=== PATIENT | female | born 1940 | race Caucasian/White ===

== ENCOUNTER → 2017-04-25 | Outpatient (CLI) | payer OTHER ==
[~2017-04-25] MED LIST: ASPI81TA28 PO; CHOL4POW2 PO; CHRO1CAP4 PO; CINN1CAP2 PO; COEN150C PO; CYAN500T PO; DYZ PO; GABA-113 PO; LEVO1TAB PO; METF1TAB53 PO; METO50TA16 PO; OMEP40CA PO; PRED1SUS3 OPR
--- NOTE | 2017-04-25 17:14 | MAMMOGRAPHY REPORT ---
UNILATERAL LEFT DIGITAL DIAGNOSTIC MAMMOGRAM TOMOSYNTHESIS WITH CAD AND TARGETED LEFT ULTRASOUND: 04/25 CLINICAL HISTORY: The patient reports tenderness in her left lateral breast for approximately one mon th. The area was previously itchy although that has now resolved and only the nipple is intermittent ly itchy. The patient denies any nipple discharge or palpable lumps. TECHNIQUE: Breast tomosynthesis in addition to standard 2D mammography was performed. Current study was also evaluated with a Computer Aided Detection (CAD) system. Left CC and MLO 2-D and tomosynthes is images were obtained. COMPARISON: Comparison is made to exams dated: 10/05/2016 mammogram, 10/04/2015 mammogram, 4 mammogram, 09/30/2013 mammogram, and 09/10/2012 mammogram. BREAST COMPOSITION: There are scattered areas of fibroglandular density in the left breast. FINDINGS: There are no suspicious masses, calcifications, or areas of architectural distortion noted in the left breast. There has been no significant interval change compared to prior exams. Scatter ed benign-appearing calcifications are stable. A focally dilated duct is seen within the left lower and slightly inner breast which does not appear significantly changed compared to prior exams. Targeted ultrasound was performed of the area of pain pointed out by the patient, involving the left 3:00 breast extending from the far lateral breast towards the nipple. Targeted ultrasound was also p erformed of the subareolar region. No suspicious masses are seen in the region of the patient's pain . Incidentally noted is an oval anechoic benign cyst versus focal duct ectasia measuring 4 x 3 mm in the left breast at 3:00, 3 cm from the nipple. In the left breast at 6:00, 2 cm from the nipple, th ere is a hypoechoic solid intraductal mass which measures 5 x 7 x 6 mm. No internal vascularity is e vident. Given that the mass is intraductal, it may represent a papilloma and ultrasound-guided core needle biopsy is recommended for further evaluation. This may correspond with the focally dilated du ct seen mammographically. IMPRESSION: ACR BI-RADS CATEGORY 4: SUSPICIOUS, TARGETED ULTRASOUND ACR BI-RADS CATEGORY 4: SUSPICIO US 1. No suspicious mammographic or sonographic abnormalities to explain left lateral breast pain and l eft nipple itchiness. Recommend clinical follow-up. 2. Incidentally noted intraductal 7 mm mass in the left breast at 6:00. The mass is indeterminate a nd ultrasound-guided core needle biopsy is recommended for further evaluation. This may represent a papilloma. A phone call was made to the physician's office to confirm faxed results were received. The patient has been verbally notified of the results. She tentatively scheduled the biopsy before leaving the d epartment. I will leave it up to the patient's physician if she can safely discontinue aspirin for 5 -7 days prior to the procedure. Approximately 10% of breast cancers are not detected with mammography. A negative mammographic report should not delay biopsy if a clinically suggestive mass is present. Sarita Houston M.D. ah/:04/25/2017 14:44:07 Director Check: Kailyn TURNER)(Natasha), [facility] letter sent: Abnormal 4/5 BI-RADS Code: ACR BI-RADS Category 4: Suspicious Ultrasound BI-RADS: ACR BI-RADS Category 4: Suspici ous
== END ==
LOC: C.MAMM 12:53
PROVIDERS: ATTEND Family Medicine
DX: N64.4 Mastodynia (principal)

== ENCOUNTER → 2017-05-02 | Outpatient (CLI) | payer OTHER ==
--- NOTE | 2017-05-02 10:29 | Discharge Instructions ---
Discharge Instructions Procedure Procedure Date: May 02, 2017. Reason for visit: Left Mass. Discharge Discharge Date: May 02, 2017. Discharge Diagnosis: status post breast biopsy Instructions Activity Recommendations: Additional Limitations (see below) Return to School/Work: no limitations Recommended Home Diet: No Limitations Provider Instructions: ACTIVITY RECOMMENDATIONS: * No lifting, pushing, pulling or exercising the affected side for three days. RETURN TO SCHOOL/WORK: * You may return to work/school after the procedure, but do not perform any strenuous activities for 24 to 48 hours. MEDICATIONS: * Tylenol (two 325 mg) every four to six hours if needed for mild pain (if not allergic to Tylenol). DIET: * Resume previous diet. SPECIAL CARE INSTRUCTIONS: * Keep biopsy site dry for 24 hours. May shower after 24 hours, but do not soak (bathe) incision. * May remove Tegaderm (plastic patch) tomorrow AFTER showering. * Leave the steri-strips on for one week. Allow the steri-strips to fall off by themselves. If not off after one week, you may remove them. You may place a Bandaid crosswise over the strips, if desired. * Apply ice 10 minutes on and 10 minutes off as needed. * Wear a bra at bedtime to sleep more comfortably for 2-3 days. * Your referring physician should have the results after approximately 5 to 7 business days. * Call for unusual bleeding, fever, drainage, etc or if you have any questions call during normal business hours or after hours call Dr Houston, . FOLLOW UP VISIT: Follow-up with Referring Physician as scheduled. Allergies Coded Allergies: Dimenhydrinate (Verified Allergy, Unknown, RASH, 06/07/16) Lisinopril (Verified Allergy, Unknown, CHRONIC COUGH, 06/07/16) Mepivacaine (Verified Allergy, Unknown, W/ EPINEPHRINE - LIGHTHEADED, FACIAL DROOPING, 06/07/16) Kiki Amin Recommendations: Call your doctor if: * Temperature above 101 degrees * Pain not relieved by pain medicine ordered * There is increased drainage or redness from any incision * You have any unanswered questions or concerns. Your Doctors Instructions noted above were prepared by provider Sarita Houston. Patient Signature Section: Patient Instructions Signature Page Alka Lawson Patient (or Guardian) Signature/Date: I have read and understand the instructions given to me by my caregivers. Caregiver/RN/Doctor Signature/Date: The above-named patient and/or guardian has received patient instructions on this date. + Original Patient Signature Page (only) stays with chart. Please make copy for patient.
--- NOTE | 2017-05-02 13:27 | MAMMOGRAPHY REPORT ---
THIS REPORT HAS BEEN AMENDED. ULTRASOUND GUIDED BIOPSY LEFT BREAST: 05/02/2017 CLINICAL HISTORY: Left 6:00 breast mass. PATIENT CONSENT: The procedure, risks and benefits were discussed with the patient and informed writt en consent was obtained. A timeout was performed immediately prior to the procedure. PROCEDURE DESCRIPTION: With ultrasound guidance, aseptic technique, and lidocaine as the local anesth etic (1% lidocaine without epinephrine as the patient reported that she had a racing heart with prior epinephrine injection), the mass of concern in the left 6:00 breast was sampled 4 times with a 14-ga uge Achieve biopsy needle. Immediately thereafter, with ultrasound guidance, aseptic technique, and lidocaine as the local anesthetic, a metallic localizer clip was placed centrally in the mass. Direc t pressure was applied to the site immediately post procedure and hemostasis was achieved. Postproce dure unilateral mammograms were performed to confirm placement of the clip in the expected location o f the breast mass. The patient tolerated the procedure without complication. She was given wound ca re instructions. The specimens were sent to pathology for analysis. COMPARISON: Comparison is made to exams dated: 04/25/2017 ultrasound, 04/25/2017 mammogram - [facility], 10/05/2016 mammogram, 10/04/2015 mammogram, 10/02/2014 mammogram, and 09/30/2013 m ammogram. IMPRESSION: ULTRASOUND GUIDED BIOPSY Ultrasound-guided core needle biopsy of the left 6:00 breast mass, with clip placement. The patient will receive pathology results from her referring provider. Sarita Houston M.D. ah/:05/02/2017 10:31:33 Attending Technologist: Catherine WILDER(Benjamin)(M), [facility] Greens Or Grounds Superintendent: Sarita Houston MD, [facility] AMENDMENT: 05/12/2017 Sarita Houston M.D. The pathology from ultrasound guided biopsy of a left 6:00 breast mass was reviewed on 05/12/2017. 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 The pathology is concordant with the imaging findings. Recommend surgical consultation.
--- NOTE | 2017-05-02 13:27 | MAMMOGRAPHY REPORT ---
UNILATERAL LEFT DIGITAL DIAGNOSTIC MAMMOGRAM TOMOSYNTHESIS: 05/02/2017 CLINICAL HISTORY: Status post ultrasound-guided biopsy of the left 6:00 breast mass. TECHNIQUE: Breast tomosynthesis in addition to standard 2D mammography was performed. Postprocedura l left CC and ML tomosynthesis images including C views were obtained. COMPARISON: Comparison is made to exams dated: 04/25/2017 ultrasound, 04/25/2017 mammogram - [facility], 10/05/2016 mammogram, 10/04/2015 mammogram, 10/02/2014 mammogram, and 09/30/2013 m ammogram. BREAST COMPOSITION: There are scattered areas of fibroglandular density in the left breast. FINDINGS: A new biopsy marker clip is seen at the site of the biopsied mass in the left 6:00 breast. No significant postbiopsy hematoma is seen. IMPRESSION: POST PROCEDURE IMAGING FOR MARKER PLACEMENT New biopsy marker clip status post ultrasound guided biopsy of the left 6:00 breast mass. Pathology results are pending. Approximately 10% of breast cancers are not detected with mammography. A negative mammographic report should not delay biopsy if a clinically suggestive mass is present. Sarita Houston M.D. ah/:05/02/2017 10:39:11 Wink Cutter Operator: Catherine WILDER(R)(M), [facility] BI-RADS Code: Post Procedure Imaging For Marker Placement
== END | disposition home or self-care (01) ==
LOC: C.MAMM 10:00
PROVIDERS: ATTEND Family Medicine
DX: N63 Unspecified lump in breast (principal)

== ENCOUNTER 2024-08-21 08:53 | Observation (INO) ==
--- NOTE | 2024-08-21 09:38 | History & Physical Report ---
Date of Service August 21, 2024 Assessment & Plan (1) Complete heart block: (2) Paroxysmal atrial fibrillation: Plan 1. Complete heart block: She has demonstrated additional episodes of complete heart block on her loop recorder. Patient presents today for implantation of dual-chamber permanent pacemaker 2. Atrial fibrillation: Paroxysmal. No overt symptoms. Will plan dual-chamber pacemaker implantation removal patient activated loop recorder. History of Present Illness Chief Complaint: syncope Primary Care Provider: Jag Kovacs MD Patient with a history of syncope, heart block and atrial fibrillation who had previously undergone implant of a loop recorder. Recent transmissions have demonstrated recurrent heart block Allergies Allergy/AdvReac Type Severity Reaction Status Date / Time dimenhydrinate Allergy Unknown RASH Verified 08/21/24 09:29 epinephrine Allergy Unknown sagging Verified 08/21/24 09:29 face lisinopril Allergy Unknown CHRONIC Verified 08/21/24 09:29 COUGH mepivacaine Allergy Unknown W/ Verified 08/21/24 09:29 EPINEPHRINE - LIGHTHEADED, FACIAL DROOPING Home Medications Medication Instructions Recorded Confirmed Type levothyroxine 125 mcg tablet 125 mcg PO DAILY 09/05/19 08/21/24 History (Synthroid) omeprazole 40 mg capsule,delayed 40 mg PO QPM 12/01/19 08/21/24 History release mecobalamin (vitamin B12) 1 ea PO DAILY 08/23/21 08/21/24 History glipizide 2.5 mg tablet, extended 10 mg PO DAILY 09/02/21 08/21/24 History release 24 hr hydrochlorothiazide 12.5 mg tablet 12.5 mg PO DAILY 09/02/21 08/21/24 History allopurinol 100 mg tablet 200 mg PO BID 03/13/23 08/21/24 History metformin 1,000 mg tablet 1,000 mg PO BID 03/13/23 08/21/24 History warfarin 5 mg tablet 5 mg PO DAILY 03/13/23 08/21/24 History metoprolol tartrate 50 mg tablet 25 mg (1/2 x 50 mg) PO BID #90 tabs 11/14/23 08/21/24 Rx Past Med/Surg History Problem List (Updated 08/10/23 @ 09:58 by Brian Loredo MD) Palpitations Complete heart block Chest pain CKD (chronic kidney disease) Hypothyroidism S/P dilatation of esophageal stricture Esophageal stricture Type 2 diabetes mellitus Dyslipidemia Hypertension Nonsustained ventricular tachycardia Paroxysmal atrial fibrillation Acute gastric ulcer (Acute 10/02/11) Postherpetic neuralgia (Acute 10/02/11) Medical History CKD (chronic kidney disease) Dyslipidemia Esophageal stricture Hypertension Hypothyroidism Nonsustained ventricular tachycardia Paroxysmal atrial fibrillation Stroke Type 2 diabetes mellitus Social History Smoking Status: Never smoker Hx Alcohol Use: No Hx Substance Use: No Beliefs That Will Affect Care: None Current Living Situation: Spouse Physical Exam Physical Exam: Alert. Oriented. Answers all questions appropriately Normal respiratory effort Regular rhythm with occasional ectopy No significant peripheral edema No abdominal distention Results & Data Results & Data Vital Signs (Past 12 Hours) Vital Signs Pulse Resp BP Pulse Ox O2 Del Method 08/21/24 09:13 68 15 155/86 H 98 Room Air
--- NOTE | 2024-08-21 09:45 | Pre Anesthesia Assessment ---
Date of Service August 21, 2024 Pre Sedation Assessment Vital Signs Pulse Resp BP Pulse Ox O2 Del Method 08/21/24 09:13 68 15 155/86 H 98 Room Air Cardiovascular + regular rate Respiratory + respiratory effort normal Pre-Sedation Airway Assessment Smoking Status: Never smoker Hx Sleep Apnea: No Hx Difficult Intubation: No Short, Thick Neck: No Thyromental Distance: > or= 3.5 Finger Breadths Oral Cavity: + WNL Mallampati Class: II ASA: ASA3 NPO Status Date of Last Intake of Fluids: 08/20/24 Date of Last Intake of Solid Food: 08/20/24 Procedure Planning Contraindications for Sedation: none Current Medications Reviewed: Yes Notes The planned sedation has been discussed with the patient. Informed Consent was obtained. I have identified the patient, determined the appropriateness of jagruti tion and have assessed the patient immediately prior to the procedure. All medicine(s) and interventions are by my order.
[2024-08-21 10:55] LABS: INR 1.9 (0.9-1.1); Prothrombin Time 19.3 Seconds (9.0-12.0)
[2024-08-21 10:59] LABS: BUN Creatinine Ratio 19.6 (10-20); Calcium 8.9 mg/dl (8.6-10.3); Creatinine Clr Calc Pharmacy 42.6 ml/min; Potassium 3.8 mmol/L (3.5-5.1)
[2024-08-21] MEDS: BUPIVACAINE 0.25% PF 30 ML VIAL ONE (11:39)
[2024-08-21] MEDS: LIDOCAINE 1% LOCAL 20 ML VIAL ONE (11:41)
[2024-08-21] MEDS: ceFAZolin 330 MG/ML 1 GM VIAL ONE (11:41)
[2024-08-21] MEDS: WATER, STERILE FOR INJ 10 ML VIAL ONE (12:10)
[2024-08-21] MEDS: VANCOMYCIN HCL 1000MG/20ML VIAL ONE (12:10)
[2024-08-21] MEDS: MIDAZOLAM HCL 5 MG/ML 1 ML VIAL ONE (12:10)
[2024-08-21] MEDS: fentaNYL citrate PF 100 MCG/2 ML VIAL ONE (12:11)
[2024-08-21] MEDS ORDERED: oxyCODONE HCL IR 5 MG TAB (IMMEDIATE RELEASE) PO PRN (12:16)
--- NOTE | 2024-08-21 12:16 | Electrophysiology Report ---
Date of Service August 21, 2024 Electrophysiology Procedure Electrophysiology Procedure Report Procedure performed: Implantation of dual-chamber permanent pacemaker and removal of previously implanted loop recorder Staff mold maker plaster: Brian Loredo MD Indication: The patient is an 84-year-old woman who previously undergone implantation of loop recorder due to episodes of syncope and heart block. She was noted to have recurrent episodes of complete heart block on monitoring and advised undergo implantation of dual-chamber permanent pacemaker for symptomatic nonreversible AV node dysfunction. A dual-chamber device was selected as we wished to maintain AV synchrony. Procedure in detail: The patient was informed of the risks benefits and alternatives to the intended procedure and she wished to proceed. She was taken to the electrophysiology suite in a fasting state. A preoperative antibiotic had been administered. The patient was monitored electrocardiographically throughout today's procedure and conscious sedation was administered per protocol. The left upper pectoral area was prepped and draped in usual sterile fashion. This area was anesthetized using subcutaneous administration of a xylocaine solution. An incision was made at this site and carried down to the prepectoralis fascia using sharp dissection. Electrocautery was also employed for dissection as well as for hemostasis. A device pocket was fashioned tissues above the pectoralis muscle. Subsequent to this maneuver the left axillary vein was accessed using modified Seldinger technique. A sheath was placed over guidewire and used to facilitate passage of a guiding catheter for mapping of the interventricular septum. Once an appropriate location was identified a pacing lead was advanced into the interventricular septum until the appropriate electrophysiologic characteristics were obtained. At this point the guiding catheter was removed. The proximal portion of the lead was then sutured the prepectoralis fascia using nonabsorbable suture. A sheath was placed over the remaining guidewire and used to facilitate passage of a pacing lead to the right atrium under fluoroscopic guidance. Adequate sensing and threshold parameters were obtained prior to active fixation of this lead to the endocardial surface. The proximal portion of the leads were then sutured the prepectoral fascia using nonabsorbable suture. The device pocket was irrigated with antibiotic solution. The leads were then attached to the device. The device and leads were then placed in the pocket and pocket was closed in 3 layers of absorbable suture. Steri-Strips and sterile dressing were applied. The device was tested noninvasively prior to conclusion the procedure. Attention was then turned to the previously implanted loop recorder. The area over the loop recorder was prepped and draped in usual sterile fashion. This area was anesthetized using subcutaneous ministration of lidocaine and Marcaine solution. A small incision was made at the site and carried down the previously implanted device. The device was grasped and removed. The resulting small incision was closed with a single 4-0 Vicryl suture and a Steri-Strip. This was covered with a sterile dressing. The patient tolerated procedure well there no immediate complications. Equipment used: New pulse generator: Community Outreach Manager [employer]. Model number: [id number] serial number [id number] Right atrial lead: Community Outreach Manager [employer]. Model number: 5076 serial number [id number] Right ventricular lead: Community Outreach Manager [employer]. Model number: 3830 serial number [id number] Explanted pulse generator: Community Outreach Manager [employer]. Model number LNQ22 serial number [id number] Measured data: Right atrial lead: P waves measured 2.8 mV. Pacing threshold was 1 V at 0.4 ms with a pacing impedance of 722 ohms Right ventricular lead: R waves measured 20 mV. Pacing threshold was 1 V at 0.4 ms with a pacing impedance of 760 ohms Impression: Successful implantation of dual-chamber permanent pacemaker with septal pacing lead Successful explantation of patient activated loop recorder MN[employer] Electrophysiology codes Pacing Procedure 1: Pacin Insert/Replace Pacer A & V Implantable Monitors Procedure 1: Implantable Monitors: [id number] Loop Recorder Explant PG Moderate Sedation Codes Moderate Sedation Codes Procedure 1: Sedation/Anesthesia: 15247 Mod Sedation by the same physician;Init15 Min Child Age 5 & Up Procedure 2: Sedation/Anesthesia: 35256 Mod Sedation by the same physician; Ea [id number] Minutes
--- NOTE | 2024-08-21 12:16 | Post Anesthesia Assessment ---
Date of Service August 21, 2024 Post Sedation Assessment Vital Signs Pulse Resp BP Pulse Ox O2 Del Method 08/21/24 09:13 68 15 155/86 H 98 Room Air Recovery Score Activity: Moves 4 extremities Respiration: Deep Breath/Cough Circulation: +/-20% PreAnes Value Consciousness: Arouseable (by name) Oxygen Saturation: O2 needed for >90% Discharge Sedation Level of Care: Fast Track Phase II Post Sedation Plan On clinical assessment, the patient appears to have tolerated the sedation without complications. Patient is recovering as anticipated. Patient will continue to be monitored by nursing and may be discharged when sedation discharge criteria are met per below protocol. Upon Completions of procedure up to 15 minutes continue every 5 minute vital signs and the P.A.R. score; then discharge to a Phase I or Fast Track to Phase II per the following guidelines: * Discharge Patient to appropriate Phase II area if PAR is 8 or greater or return to pre- procedure baseline. The post - procedure orders will be as directed. * If PAR score is less than 8 or not return to pre-procedure baseline then patient will follow Phase I monitoring till PAR is reached for Phase II. The Phase I may be done in procedure room or may call to secure a Phase I area. * If naloxone or flumazenil are used for reversal, hold in Phase I for continued monitoring from when last reversal dose was given for a minimum of 60 minutes or longer pending the nurse and/or physician discretion of patient condition before discharge to Phase II. Please call the Sedation Physician to re-evaluate and complete post-note for discharge to Phase II area. Do NOT discharge from procedure sedation or Phase 1 until post- sedation evaluation note is complete by procedure /sedation MD Sedation Discharge Instructions to be given to the patient at discharge to home.
--- OUTSIDE RECORDS SUMMARY | 2024-08-21 14:03 | External Medical Summary | Summary of Care ---
Author Name Unknown Organization [facility] Address [address] [place] [address] Phone [phone] Care Team Providers Care Tax Assessor Name Role Phone Jag Kovacs MD Primary Care Provider Encounter Details Date Type Department Care Team (Late st Contact Info) Description 08/18/2024 1:40 PM EDT Home Visit Care Coordination and Integration [address] [place] [address] Cathy Brannon, [facility] Drop Hammer Pile Driver Operator [address] [place] [address] Allergies Active Allergy Reactions Criticality Noted Date Comments Diphenhydramine 09/03/2018 Epinephrine Other (Please comment) 07/03/2023 Propranolol Hcl 09/29/2010 "TIA" - like reactions Lisinopril Cough 08/04/2008 Mepivacaine Hcl 06/30/2008 With epi: whole face sagged Simvastatin 12/25/2012 Myalgia-nl CK documented as of this encounter (statuses as of 08/19/2024) Medications Medication Sig Dispensed Refills Start Date End Date Status Cyanocobalamin (B-12) 1000 MCG TABS Take 1 Tab by mouth daily. 30 Tab 5 08/18/2019 Active zoster vac recomb adjuvanted (SHINGRIX) 50 MCG/0.5ML injectionIndications :Need for vaccination for zoster Inject 0.5 mL into a large muscle now and repeat dose in 60 to 180 days 1 Each 1 06/25/2020 Active Vitamin D3 25 MCG (1000 UT) Oral Capsule Take 1 Capsule by mouth once. Active Atorvastatin Calcium 80 MG Oral Tablet (Lipitor) Take 1 Tablet by mouth every afternoon. 30 Tablet 12/01/2022 Active Losartan Potassium 25 MG Oral Tablet (Cozaar) Take 1 Tablet by mouth in the morning. 30 Tablet 12/07/2022 Active Acetaminophen 325 MG Oral Tablet (Tylenol) Take 2 Tablets by mouth every 8 hours as needed for Pain, Moderate. Active Hydrocortisone 1 % External Cream Apply topically to affected area daily as needed for Hemorrhoids. Apply to hemorhoids 12/30/2022 Active Allopurinol 100 MG Oral Tablet (Zyloprim)Indication s:Gouty arthropathy Take 2 tablets by mouth once daily 180 Tablet 1 11/23/2023 Active glipiZIDE ER 10 MG Oral Tablet Extended Release 24 Hour (Glucotrol XL)Indications:Type 2 diabetes mellitus with hemoglobin A1c goal of less than 7.0% (HCC) TAKE 1 TABLET BY MOUTH ONCE DAILY 30 MINUTES BEFORE A MEAL 90 Tablet 1 11/23/2023 Active hydroCHLOROthiazide 12.5 MG Oral Capsule (Hydrodiuril)Indicat ions:HTN, goal below 140/80 Take 1 capsule by mouth once daily 90 Capsule 2 12/24/2023 Active Gabapentin 300 MG Oral Capsule (Neurontin)Indicatio ns:Post-herpetic polyneuropathy Take 2 Capsules by mouth in the morning and 2 Capsules before bedtime. 360 Capsule 3 02/07/2024 Active Omeprazole 40 MG Oral Capsule Delayed Release (PriLOSEC)Indication s:History of esophageal stricture,Gastroesop hageal reflux disease, unspecified whether esophagitis present Take 1 Capsule by mouth at bedtime. 90 Capsule 3 02/07/2024 Active Synthroid 125 MCG Oral TabletIndications:Ac quired hypothyroidism TAKE 1 TABLET BY MOUTH ONCE DAILY AT LEAST 30 MINUTES PRIOR TO BREAKFAST OR OTHER MEDICATIONS 90 Tablet 1 02/13/2024 Active metFORMIN HCl 1000 MG Oral Tablet (Glucophage)Indicati ons:DM type 2 causing renal disease (HCC) Take 1 Tablet by mouth in the morning and 1 Tablet before bedtime. With meals.. Do not start before June 14, 2024. 180 Tablet 3 06/14/2024 Active Bisacodyl 10 MG Rectal Suppository (Dulcolax) Administer 1 Suppository into the rectum in the morning. Active Potassium Chloride ER 10 MEQ Oral Tablet Extended Release Take 1 Tablet by mouth. In the morning. 07/17/2024 Active Warfarin Sodium 3 MG Oral Tablet (Coumadin) Take 1 Tablet by mouth in the morning. 07/17/2024 Active Cefdinir 300 MG Oral Capsule (Omnicef) Take 1 Capsule by mouth in the morning and 1 Capsule before bedtime. 8 Capsule 07/28/2024 Active Additional Information Patient not taking.Reported on 08/18/2024 Metoprolol Tartrate 25 MG Oral Tablet (Lopressor) Take 0.5 Tablets by mouth in the morning and 0.5 Tablets before bedtime. 30 Tablet 07/28/2024 Active Zoster Vac Recomb Adjuvanted 50 MCG/0.5ML Intramuscular Suspension Reconstituted (Shingrix)Indication s:Need for vaccination for zoster Inject 0.5 mL into a large muscle now and repeat dose in 60 to 180 days 1 Each 1 08/06/2024 Active documented as of this encounter (statuses as of 08/19/2024) Active Problems Problem Noted Date Diagnosed Date Morbid (severe) obesity due to excess calories 0 08/06/2024 Pulmonary hypertension, unspecified 08/06/2024 Second degree AV block 07/28/2024 Fall at home 07/26/2024 Complicated UTI (urinary tract infection) 2023 Hydrocephalus 06/13/2024 Fall 06/11/2024 Intraventricular hemorrhage 06/11/2024 Complete heart block 08/03/2023 Hemiplegia, post-stroke 12/04/2022 Extension of stroke 11/29/2022 Ambulatory dysfunction 07/27/2021 Gouty arthropathy 2021 Paroxysmal atrial fibrillation 01/30/2019 NSVT (nonsustained ventricular tachycardia) 01/17 Diabetic polyneuropathy asso ciated with type 2 diabetes mellitus 09/14/2017 Gastroesophageal reflux disease with esophagitis 06/12/2017 HTN, goal below 140/90 05/28/2012 Overview: 01/29--home bp mon cor --nml. 08/26--cardiac CT--neg .(stress test s/o apical ischemia) Outside echo: 02/24: Nl EF: 65%. No RWMA. No valvular problems. Holter monitor: 02/24: HR min: 64 bpm. Max: 138 bpm. Av bpm. 77 PVCs. Symptoms of fatigue, sob, dizziness did not correlate with arrhythmia EKG: NSR. Low voltage. Acquired hypothyroidism 09/28/2010 Dyslipidemia, goal LDL below 100 09/28/2010 Overview: 08/02--not taking questran--states forgets 08/30-Had myalgia lipitor, pravachol/zocor Type 2 diabetes mellitus wit h hemoglobin A1c goal of less than 8.0% 09/28/2010 Overview: 07/22/13 Dr Joseph: no ocular complications 07/18/12 Dr Joseph: no ocular complications 05/28/12 DM Self Mgmt: Diet/Exercise--Kelli- 07/05/2009 FBS 159, A1C 6.4 ICD-10 update of inactive term documented as of this encounter (statuses as of 08/19/2024) Resolved Problems Problem Noted Date Diagnosed Date Resolved Date ILD (interstitial lung disease) 02/14/2023 02/14/2023 Pneumonia due to COVID-19 virus 07/27/2021 11/07/2021 Falls 07/27/2021 11/07/2021 Diabetes mellitus with nephropathy 04/10/2019 05/04/2022 Herpes zoster without complication 04/06/2019 10/02/2019 Lactic acidosis 04/06/2019 04/07/2019 Acute cystitis with hematuria 04/06/2019 10/02/2019 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 >refer-sleep cl eval-viral sleep study>08/12/15--no osas, -fu 09/02---rec O2 defers Snoring 02/01/2015 06/12/2017 Urgency incontinence 10/02/2014 017 Family hx of colon cancer 08/03/2014 Overview: Bro age ?62 Statin intolerance 08/03/2014 7 Hiatal hernia 08/03/2014 06/12/2017 Internal hemorrhoids 01/26/2014 017 MAYCOL (iron deficiency anemia) 11/29/2013 06/12/2017 Overview: 12/02-MAYCOL Sec hemorrhoids--improved on iron suppl--defers sg eval> >01/31-dc fe Hypercalcemia 12/25/2012 08/03/2014 Overview: Resolved off ca Hip osteoarthritis 11/27/2012 7 Overview: 09/30--hip xr--Mild superior joint space narrowing of the bilateral hips.mild enthesopathic changes Gr trochs. Trochanteric bursitis of right hip 11/27/2012 06/12/2017 Palpitations 09/27/2012 06/12/2017 Overview: 09/30- Holter -nml>nl 03/04 Other screening mammogram 09/10/2012 Overview: Neg--08/30;;10/01;10/02;;10/04/15, Family history of colon cancer 05/28/2012 06/12/2017 Overview: brother Gastric polyps 05/28/2012 06/12/2017 Overview: 09/29--EGD---see epic-gastritis,?rel nsaid- gastric polyps-x3 -bx-benign fundic gland polyps Special screening for osteoporosis 05/28/2012 06/12/2017 Overview: 08/30--dexa--LR--rpt 7 yrs Varicose vein of leg 05/28/2012 017 Overview: Mild lt leg Papanicolaou smear 05/28/2012 7 Overview: 10/28--vag smear neg--sp ASHLY, AP repair, bladder tack, For prolapse/dub in 80s.( CT 08/29 -nml, atrophic ovaries) Cystocele, midline 05/28/2012 7 Encounter for examination fo r normal comparison and control in clinical research program 04/10/2012 08/29/2013 Overview: Diagnosis changed due to Research Module. Go to Snapshot for study details. Severe obesity with body mas s index (BMI) of 35.0 to 35.9 and comorbidity 05/11/2011 02/14/2023 Limb tremor 02/16/2011 06/12/2017 Demyelinating changes in brain 02/16/2011 06/12/2017 Overview: 01/27--DrMittal-IgG synthesis rate, myelin basic protein, CSF angiotensin converting enzyme, CSF lyme disease DNA PCR and HSV were all within the normal range>>f/u 05/2011--rec fu prn Kidney Dz,Chronic (GFR 60-89) Stage II 11/16/2010 08/06/2015 DM type 2 causing renal disease 11/16/2010 01/30/2019 Mixed incontinence urge and stress (male)(female) 11/16/2010 06/12/2017 External hemorrhoids with other complication 0 06/12/2017 NAFLD (nonalcoholic fatty liver disease) 09/28/2010 06/12/2017 Overview: See u/s study 05/16/2010 Intermittent asthma with rel iever use up to twice per week 09/28/2010 08/03/2014 HTN, goal below 140/90 09/28/201009/28 GERD (gastroesophageal reflux disease) 09/28/2010 06/12/2017 History of esophageal stricture 09/28/2010 06/12/2017 Overview: 01/31-ome 40 hs, zantac inc bid>03/03--EGD--nl ,A single epithelial polyp was found in the gastric fundus -bx--con inc ppi bid/chg ppi EGD per Dr. Lynn 02/28/2010, normal esophagus, empirically dilated, small hiatal hernia Need for prophylactic hormon e replacement therapy (postmenopausal) 09/28/2010 02/01/2015 SCREENING FOR MAL NEOPLASMS COLON 09/28/2010 06/12/2017 Overview: 03/03--nml, sm IH, prom EH--rpt 5 yrs-Mely. C scope 02/28/2010 Dr. Lynn, [place] internal hemorrhoid, normal colon, repeat 5 years for screening Other chest pain 09/28/2010 06/12/2017 Overview: 2009--ekg st abn-- SE neg See cardiol consult, adenosine stress 07/10/08 probable ischemia involving the apical septum Melancholia 09/28/2010 03/19/2018 Obesity, Class III, BMI 40-4 9.9 (morbid obesity) 05/03/2010 02/14/2023 Overview: Per Obesity Protocol, #19 ICD-10 update of inactive term ADVANCE DIRECTIVE INFORMATION 06/30/2008 08/06/2015 Overview: Yes, Patient instructed to provide copy of advance directive for provider to review and to be scanned into Electronic Medical Record documented as of this encounter (statuses as of 08/19/2024) Immunizations Name Administration Dates Next Due PPD 04/25/2005 Pneumococcal Conjugate Vacc, 13 Valent (Prevnar) 08/06/2015 Pneumococcal Polysaccharide PPV23 (Pneumovax) 11/16/2010 Season Influenza, Quad, PF, Adjuvanted, 65+ Yrs, IM (FLUAD) 09/30/2020 Seasonal Influenza Virus Vac cine, Unspecified Formulation 09/19/2018,09/14/2017,09/14/2016,08/03,09/20/2012,08/11/2011,09/29/2010 ,09/15/2008,11/13/2007,10/09/2006,08/20 Seasonal Influenza, High Dos e, Trivalent, PF, IM (Fluzone HD) 07/25/2024 Seasonal Influenza, MDCK, Tr ivalent, PF, (Flucelvax) 10/28/2013 Seasonal Influenza, PF, 6 M & above, IM , (FluLaval or Fluzone) 10/02/2019,09/19/2018,09/14/2017 Seasonal Influenza, Quadriva lent Hd (Fluzone Hd) 08/03/2023,09/13/2022,11/07/2021 Seasonal Influenza, Quadriva lent, No Preserve, IM 09/14/2016 Seasonal Influenza, Trivalen t, (IIV3), with Preserv, (Fluzone) 08/06/2015,08/03/2014,09/20/2012,08/11,09/29/2010,09/15/2008,11/13/2007 ,10/09/2006,09/08/1998 TDAP (age 10 and older)(Boostrix) 01/29/2019,08/2012 Varicella Zoster Vaccine (Adult) 02/13/2012 documented as of this encounter Social History Tobacco Use Types Packs/Day Years Used Date Smoking Tobacco: Never Smokeless Tobacco: Never Alcohol Use Standard Drinks/Week Comments No 0 (1 standard drink = 0.6 oz pur e alcohol) PHQ-2 Answer Date Recorded PHQ Adult Total Score 0 06/20/2023 Hunger Vital Sign Answer Date Recorded Within the past 12 months, y ou worried that your food would run out before you got the money to buy more. Never true 08/18/20 24 Within the past 12 months, t he food you bought just didn't last and you didn't have money to get more. Never true 08/18/2024 Childcare Answer Date Recorded Do you feel overwhelmed with taking care of a child, family member or friend? No 08/18/2024 Does your family need help f inding childcare? (Household - for ages 0-17 years) Not on file 08/18/2024 Clothing Answer Date Recorded Have you been unable to get clothing when it was really needed? No 08/18/2024 Is your family able to get c lothes or diapers when needed? (Household - for ages 0-17 years) Not on file 08/18/2024 Personal Safety Answer Date Recorded Do you feel unsafe or have concerns for your saf ety? No 08/18/2024 Do you have concerns for you r family's safety? (Household - for ages 0-17 years) Not on file 08/18/2024 Utilities Answer Date Recorded Do you have trouble paying y our heating, water, or electric bill? No 08/18/2024 Is your family able to pay t he heat, water, or electric bill? (Household - for ages 0-17 years) Not on file 08/18/2024 Does your family have access to good internet? (Household - for ages 0-17 years) Not on file 08/18/2024 Employment Status Answer Date Recorded Are you unemployed or without regular income? No 08/18/2024 Does the household have a re gular source of income? (Household - for ages 0-17 years) Not on file 08/18/2024 Social Connections Answer Date Recorded How often do you feel lonely or isolated from th ose around you? Never 08/18/2024 Financial Resource Strain Answer Date R ecorded Do you have any trouble payi ng for your medications, or do you think you might in the future? No 08/18/2024 Does your family have troubl e paying for medicine? (Household - for ages 0-17 years) Not on file 08/18/2024 Transportation Needs Answer Date Record ed Do you have trouble getting a ride to medical visits or work? (Adult - for ages 18 years and over) Not on file 08/18/2024 Does your family have a hard time getting a ride to doctors visits? (Household - for ages 0-17 years) Not on file 08/18/2024 Has lack of transportation k ept you from medical appointments, meetings, work, or from getting things needed for daily living? Check all that apply. No 08/18/2024 Do you (or your family) have trouble finding or paying for a ride (transportation)? (Household - for ages 0-17 years) Not on file 08/18/2024 Housing Stability Answer Date Recorded Do you currently live in a s helter or have no steady place to sleep at night? No 08/18/2024 Do you think you are at risk of becoming homeless? (Adult - for ages 18 years and over) Not on file 08/18/2024 Does your family worry about paying for your home or becoming homeless? (Household - for ages 0-17 years) Not on file 0 08/18/2024 Are you homeless or worried that you might be in the future? No 08/18/2024 Are you (or your family) darby eless or worried that you might be in the future? (Household - for ages 0-17 years) Not on file Food Insecurity Answer Date Recorded Do you need food for this week? No 08/18/2024 Are you able to get enough f ood for your family? (Household - for ages 0-17 years) Not on file 08/18/2024 Does your family need food t his week? (Household - for ages 0-17 years) Not on file 08/18/2024 Do you always have enough fo od for your family? (Household - for ages 0-17 years) Not on file 08/18/2024 Sex and Gender Information Value Date Recorded Sex Assigned at Female 02/11/2019 1:06 PM EDT Gender Identity Female 02/11/2019 1:06 PM EDT Sexual Orientation Straight 02/11/2019 1: 06 PM EDT Job Start Date Occupation Industry Not on file Not on file Not on file documented as of this encounter Last Filed Vital Signs Vital Sign Reading Time Taken Comments Blood Pressure 122/62 08/18/2024 2:26 PM EDT Pulse 52 08/18/2024 2:26 PM EDT Temperature 36.3 C (97.4 F) 08/18/2024 2:26 PM ED T Respiratory Rate - - Oxygen Saturation 98% 08/18/2024 2:26 PM EDT Inhaled Oxygen Concentration - - Weight - - Height - - Body Mass Index - - documented in this encounter Functional Status Functional Status Response Date of Assess ment Are you deaf or do you have serious difficulty hearing? Yes-wears hearing aid 07/27/2024 Are you blind or do you have serious difficulty seeing, even when wearing glasses? No 07/27/2024 Do you have serious difficul ty walking or climbing stairs? (5 years old or older) Yes 07/27/2024 Do you have difficulty dress ing or bathing? (5 years old or older) No 07/27/2024 Because of a physical, menta l, or emotional condition, do you have difficulty doing errands alone such as visiting a doctor s office or shopping? (15 years old or older) Yes 07/27/2024 Cognitive Status Response Date of Assessm ent Because of a physical, menta l, or emotional condition, do you have serious difficulty concentrating, remembering, or making decisions? (5 years old or older) No 07/27/2024 documented as of this encounter Progress Notes * Bria Waggoner RN - 08/19/2024 8:12 AM EDT Refill request for atorvastatin sent Added note to 08/21/24 cardio appt to discuss whether or not pt needs to restart losartan BILL Hein, pt seeing you 08/21/24 * Cathy Brannon, [facility] Drop Hammer Pile Driver Operator - 08/18/2024 1:59 PM EDT Telemedicine visit: No [facility] Drop Hammer Pile Driver Operator (ZENY) documentation: CHW visit BP 122/62 (BP Site: Left Arm, BP Position: Sitting, BP Cuff Size: Regular) | Pulse 52 | Temp 36.3 C (97.4 F) (Infrared ) | SpO2 98% Atorvastatin 80 mg not taking needs refill Not taking Losartan Potassium 25 mg Taking Metformin 1000 mg is 1 tablet 2x daily Patient is having a pacemaker put in on Incontinent of bladder Not interested in Cars at this moment, CHW called cars for rate it would be around [address] [place] and back Cathy Brannon [facility] Community Health Worker Call or Text- [phone] Electronically signed by Cathy Brannon, [facility] Drop Hammer Pile Driver Operator at 08/18/2024 3:00 PM EDT documented in this encounter Plan of Treatment Upcoming Encounters Date Type Department Care Team (Late st Contact Info) Description 08/21/2024 1:30 PM EDT Office Visit Cardiology, [place] [address] [facility] [place] [address] Melvina Mensah CRNP [address] [facility] [place] [address] 08/26/2024 8:30 AM EDT Scheduled Telephone Care Coordination and Integration [address] [place] [address] Cathy Brannon, [facility] [employer] Pile Driver Operator [address] [place] [address] 08/27/2024 3:00 PM EDT Anticoagulation Pharmacy, [place] [address] [place] [address] Pharmacist1, [facility] [place] [address] [place] [address] 08/28/2024 6:00 PM EDT Office Visit Family Practice, [place] [address] [facility] [place] [id number] Jag [facility] [address] 09/11/2024 2:00 PM EDT [facility] [address] [facility] [address] Azul Nye DPM [address] [facility] [place] [address] Scheduled Procedures Name Priority Associated Diagnoses Date/Ti me COLONOSCOPY FLEXIBLE PROXIMAL DIAGNOSTIC Recall Special screening for malignant neoplasms, colon GERD (gastroesophageal reflux disease) ESOPHAGOGASTRODUODENOSCOPY ( EGD), FLEXIBLE, TRANSORAL, DIAGNOSTIC Recall Special screening for malignant neoplasms, colon GERD (gastroesophageal reflux disease) Health Maintenance Due Date Last Done Comments Zoster Vaccines (2 of 3) 04/09/2012 02/13/2012 Colonoscopy 10/12/2023 10/12/2020, 09/20, 09/28/2017, Additional history exists Albumin/Creatinine Ratio 06/08/2024 023, 11/09/2022, 04/06/2020, Additional history exists TSH 06/08/2024 06/08/2023, 11/20, 12/08/2022, Additional history exists Adult Wellness Visit 06/20/2024 06/20/2023, 06/19/2022, 06/17/2021 COVID-19 Vaccine ( season) 2024 HbA1c 01/24/2025 07/27/2024, 11/20, 06/08/2023, Additional history exists Diabetic Foot Exam 02/06/2025 02/07/2024, 0 02/14/2023, 05/04/2022, Additional history exists Diabetic Eye Exam 03/17/2025 03/17/2024, , 03/16/2023, Additional history exists Depression Screening 07/25/2025 07/25/2024 GFR 07/28/2025 07/28/2024, 09/0 06/2024, 07/26/2024, Additional history exists DXA Scan 06/05/2026 06/05/2019, 08/20, 09/10/2012 DTap/Tdap Vaccines (3 - Td or Tdap) 01/29/2029 01/29/2019, 05/28/2012 Pneumococcal Vaccine: 65+ Years Completed 08/06/2015, 11/16/2010 Influenza Vaccine (FLU shot) Completed 04/2024, 08/03/2023, 09/13/2022, Additional history exists HPV (Gardasil) Vaccine Aged Out No lo nger eligible based on patient's age to complete this topic Hepatitis B Vaccine Aged Out No longe r eligible based on patient's age to complete this topic MENINGOCOCCAL (MENACTRA/MENVEO) Aged Out No longer eligible based on patient's age to complete this topic documented as of this encounter Medical Devices Not on filedocumented as of this encounter Additional Health Concerns Infection Onset Date Last Indicated Resolved Time ESBL 07/26/2024 07/26/2024 documented as of this encounter Advance Directives Documents on File Type Date Recorded Patient Front Office Developer Expl anation POL 08/07/2024 signed on 06/16 [facility] [facility] * Full Code (Latest Code Status on File) Date Activated Date Inactivated Comments 07/26/2024 11:28 PM 07/28/2024 8:38 PM This order re flects the patients wishes and were consensually agreed upon. Question Answer Comments Discussion of Advance Directives occurred with: Patient * Full Code Date Activated Date Inactivated Comments 06/10/2024 9:19 PM 06/13/2024 3:16 PM This order r eflects the patients wishes and were consensually agreed upon. Question Answer Comments Discussion of Advance Directives occurred with: Patient * Full Code Date Activated Date Inactivated Comments 12/04/2022 10:59 PM 12/07/2022 4:31 PM This order reflects the patients wishes and were consensually agreed upon. Question Answer Comments Discussion of Advance Directives occurred with: Patient * Full Code Date Activated Date Inactivated Comments 12/04/2022 10:30 PM 12/04/2022 10:59 PM This order reflects the patients wishes and were consensually agreed upon. Question Answer Comments Discussion of Advance Directives occurred with: Family * Full Code Date Activated Date Inactivated Comments 11/29/2022 3:18 PM 12/01/2022 6:05 PM This order r eflects the patients wishes and were consensually agreed upon. Question Answer Comments Discussion of Advance Directives occurred with: Family Care Teams Tax Assessor Relationship Specialty Start Date End Date Jag Kovacs MD [address] [place] [id number] PCP - General Family Medicine 08/05/21 documented as of this encounter
--- OUTSIDE RECORDS SUMMARY | 2024-08-21 14:03 | External Medical Summary | Summary of Care ---
Author Name Unknown Organization [facility] Address [address] [place] [address] Phone [phone] Care Team Providers Care Antenna Installer Name Role Phone Jag Kovacs MD Primary Care Provider Encounter Details Date Type Department Care Team (Late st Contact Info) Description 08/18/2024 1:40 PM EDT Home Visit Care Coordination and Integration [address] [place] [address] Cathy Brannon, Community Health Wheel Alignment Mechanic [address] [place] [address] Allergies Active Allergy Reactions Criticality [...] nuclear stress test 05/08/2016 06/12/2017 Overview: 05/04-at [place] card++++ B12 deficiency 08/12/2015 06/12/2017 Overview: b12-231, [...] 5 yrs-Mely. C scope 02/28/2010 Dr. Lynn, [place] internal hemorrhoid, normal colon, repeat 5 years [...] 65+ Yrs, IM (FLUAD) 09/30/2020 Seasonal Influenza Vac., MDV , IM, 0.5 mL (Fluzone) 08/06/2015,08/03/2014,09/20/2012,08/11,09/29/2010,09/15/2008,11/13/2007 ,10/09/2006,09/08/1998 Seasonal Influenza Virus Vac cine, Unspecified Formulation 09/19/2018,09/14/2017,09/14/2016,08/03,09/20/2012,08/11/2011,09/29/2010 ,09/15/2008,11/13/2007,10/09/2006,08/20 Seasonal Influenza, High Dos e, Trivalent, PF, IM (Fluzone HD) 07/25/2024 Seasonal Influenza, MDCK, Tr ivalent, PF, (Flucelvax) 10/28/2013 Seasonal Influenza, PF, 6 M & above, IM , (FluLaval or Fluzone) 10/02/2019,09/19/2018,09/14/2017 Seasonal Influenza, Quadriva lent Hd (Fluzone Hd) 08/03/2023,09/13/2022,11/07/2021 Seasonal Influenza, Quadriva lent, No Preserve, IM 09/14/2016 TDAP (age 10 and older)(Boostrix) 01/29/2019,08/2012 Varicella [...] you 08/21/24 * Cathy Brannon, Community Health Wheel Alignment Mechanic - 08/18/2024 1:59 PM EDT Telemedicine visit: No Community Health Wheel Alignment Mechanic (ZENY) documentation: CHW visit BP 122/62 (BP [...] it would be around [address] [place] back Cathy Brannon [facility] Community Health Worker Call or Text- [phone] documented in this encounter Plan of Treatment Upcoming Encounters Date Type Department Care Team (Late st Contact Info) Description 08/21/2024 1:30 PM EDT Office Visit Cardiology, [place] [address] [facility] [place] [address] Melvina Mensah CRNP [address] [facility] [place] [address] 08/26/2024 8:30 AM EDT Scheduled Telephone Care Coordination and Integration [address] [place] [address] Cathy Brannon, Community Health Wheel Alignment Mechanic [address] [place] [address] 08/27/2024 3:00 PM EDT Anticoagulation Pharmacy, [place] [address] [place] [phone] Pharmacist1, [facility] [address] [place] [address] 08/28/2024 6:00 PM EDT [facility] [place] [facility] [phone] Jag [facility] [address] 09/11/2024 2:00 PM EDT Office Visit Podiatry, [facility] [address] [facility] [place] [address] [facility]ul Nye [facility] [address] Scheduled Procedures Name Priority Associated Diagnoses Date/Ti [...] Documents on File Type Date Recorded Patient Electrophysiology Tech Expl anation POLST 08/07/2024 signed on 06/16 [place] DEPT OF [...] Advance Directives occurred with: Family Care Teams Antenna Installer Relationship Specialty Start Date End Date Jag Kovacs MD [address] [place] [address] PCP - General Family Medicine 08/05/21 documented as of this encounter
--- OUTSIDE RECORDS SUMMARY | 2024-08-21 14:03 | External Medical Summary | Summary of Care ---
Author Name Unknown Organization [facility] Address [address] [place] [address] Phone [phone] Care Team Providers Care Seconds Handler Name Role Phone Candelario Kovacs MD Primary Care Provider Reason for Visit * Reason Onset Date Comments Medication Refill 08/19/2024 Encounter Details Date Type Department Care Team (Late st Contact Info) Description 08/19/2024 Refill [facility] [address] [place] [address] Candelario Kovacs MD [address] [place] [address] Paroxysmal atrial fibrillation (HCC)*; Dyslipidemia, goal LDL below 100 Allergies Active Allergy Reactions Criticality Noted Date Comments Diphenhydramine 09/03/2018 Epinephrine Other (Please comment) 07/03/2023 Propranolol Hcl 09/29/2010 "TIA" - like reactions Lisinopril Cough 08/04/2008 Mepivacaine Hcl 06/30/2008 With epi: whole face sagged Simvastatin 12/25/2012 Myalgia-nl CK documented as of this encounter (statuses as of 08/20/2024) Medications Medication Sig Dispensed Refills Start Date End Date Status Cyanocobalamin (B-12) 1000 MCG TABS Take 1 Tab by mouth daily. 30 Tab 5 08/18/2019 Active zoster vac recomb adjuvanted (SHINGRIX) 50 MCG/0.5ML injectionIndication s:Need for vaccination for zoster Inject 0.5 mL into a large muscle now and repeat dose in 60 to 180 days 1 Each 1 06/25/2020 Active Vitamin D3 25 MCG (1000 UT) Oral Capsule Take 1 Capsule by mouth once. Active Losartan Potassium 25 MG Oral Tablet [...] 12/30/2022 Active Allopurinol 100 MG Oral Tablet (Zyloprim)Indicatio ns:Gouty arthropathy Take 2 tablets by mouth once daily 180 Tablet 1 11/23/2023 Active glipiZIDE ER 10 MG Oral Tablet Extended Release 24 Hour (Glucotrol XL)Indications:Type 2 diabetes mellitus with hemoglobin A1c goal of less than 7.0% (HCC) TAKE 1 TABLET BY MOUTH ONCE DAILY 30 MINUTES BEFORE A MEAL 90 Tablet 1 11/23/2023 Active hydroCHLOROthiazide 12.5 MG Oral Capsule (Hydrodiuril)Indica tions:HTN, goal below 140/80 Take 1 capsule by mouth once daily 90 Capsule 2 12/24/2023 Active Gabapentin 300 MG Oral Capsule (Neurontin)Indicati ons:Post-herpetic polyneuropathy Take 2 Capsules by mouth in the morning and 2 Capsules before bedtime. 360 Capsule 3 02/07/2024 Active Omeprazole 40 MG Oral Capsule Delayed Release (PriLOSEC)Indicatio ns:History of esophageal stricture,Gastroeso phageal reflux disease, unspecified whether esophagitis present Take 1 Capsule by mouth at bedtime. 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 90 Tablet 3 08/20/2024 Active Atorvastatin Calcium 80 MG Oral Tablet (Lipitor) Take 1 Tablet by mouth every afternoon. 30 Tablet 12/01/2022 08/19/20 24 Discontinu ed(Refill) documented as of this encounter (statuses as of 08/20/2024) Active Problems Problem Noted Date Diagnosed Date [...] no ocular complications 05/28/12 DM Self Mgmt: Diet/Exercise--DrBeamer- 07/05/2009 FBS 159, A1C 6.4 ICD-10 update of inactive term documented as of this encounter (statuses as of 08/20/2024) Resolved Problems Problem Noted Date Diagnosed Date [...] nuclear stress test 05/08/2016 06/12/2017 Overview: 05/04-at [place] card++++ B12 deficiency 08/12/2015 06/12/2017 Overview: b12-231, nm mma--st po 500mcg 08/03 Balance problem 08/06/2015 06/12/2017 Overview: 06/02--neuro--eval-- PT,MRI>07/03Cerebral [...] Overview: 03/03--nml, sm IH, prom EH--rpt 5 yrs-DrKomar. Cohen scope 02/28/2010 Dr. Lynn, [place] internal hemorrhoid, normal colon, repeat 5 years [...] as of this encounter (statuses as of 08/20/2024) Immunizations Name Administration Dates Next Due PPD [...] on file documented as of this encounter Functional Status Functional Status Response [...] No 07/27/2024 documented as of this encounter Miscellaneous Notes * Telephone Encounter - Candelario Kovacs MD - 08/20/2024 10:29 AM EDT Signed Prescriptions: Disp Refills Atorvastatin Calcium 80 MG Oral Tablet (Li*90 Tab*3 Sig: Take 1 Tablet by mouth every afternoon.Authorizing Provider: CANDELARIO KOVACS documented in this encounter Plan of Treatment Upcoming Encounters Date Type Department Care Team (Late st Contact Info) Description 08/26/2024 8:30 AM EDT Scheduled Telephone Care Coordination and Integration [address] [place] [address] Cathy Brannon, Community Health Cash Register Servicer [address] [place] [address] 08/27/2024 3:00 PM EDT Anticoagulation Pharmacy, [place] [address] [place] [address] Pharmacist1, [facility] [place] [address] [place] [address] 08/28/2024 6:00 PM EDT Office Visit [facility] [address] [place] [phone] Candelario Kovacs MD [address] [place] [address] 09/11/2024 2:00 PM EDT Office Visit Podiatry, [facility] [address] [place], [place] [phone] Azul Nye DPM [address] [place], [place] [phone] Scheduled Procedures Name Priority Associated Diagnoses Date/Ti [...] Depression Screening 07/25/2025 07/25/2024 GFR 07/28/2025 07/28/2024, 0906/2024, 07/26/2024, Additional history exists DXA Scan 06/05/2026 [...] Not on filedocumented as of this encounter Visit Diagnoses Diagnosis Paroxysmal atrial fibrillation (HCC)- Primary Atrial fibrillation Dyslipidemia, goal LDL below 100 Other and unspecified hyperlipidemia documented in this encounter Additional Health Concerns Infection Onset Date Last Indicated Resolved Time ESBL 07/26/2024 07/26/2024 documented as of this encounter Advance Directives Documents on File Type Date Recorded Patient Medical Data Entry Clerk Expl anation POLST 08/07/2024 signed on 06/16 [...] Advance Directives occurred with: Family Care Teams Seconds Handler Relationship Specialty Start Date End Date Candelario Kovacs MD [address] [place] [phone] PCP - General Family Medicine 08/05/21 documented as of this encounter
--- OUTSIDE RECORDS SUMMARY | 2024-08-21 14:04 | External Medical Summary | Summary of Care ---
Author Name Unknown Organization [facility] Address [address] [place] [address] Phone [phone] Care Team Providers Care Contract Negotiator Name Role Phone Jag Kovacs MD Primary Care Provider Encounter Details Date Type Department Care Team (Late st Contact Info) Description 08/18/2024 1:40 PM EDT Home Visit Care Coordination and Integration [address] [place] [address] Cathy Brannon, Community Health Technical Implementation Lead [address] [place] [address] Allergies Active Allergy Reactions Criticality Noted Date Comments Diphenhydramine 09/03/2018 Epinephrine Other (Please comment) 07/03/2023 Propranolol Hcl 09/29/2010 "TIA" - like reactions Lisinopril Cough 08/04/2008 Mepivacaine Hcl 06/30/2008 With epi: whole face sagged Simvastatin 12/25/2012 Myalgia-nl CK documented as of this encounter (statuses as of 08/18/2024) Medications Medication Sig Dispensed Refills Start Date [...] as of this encounter (statuses as of 08/18/2024) Active Problems Problem Noted Date Diagnosed Date [...] as of this encounter (statuses as of 08/18/2024) Resolved Problems Problem Noted Date Diagnosed Date [...] nuclear stress test 05/08/2016 06/12/2017 Overview: 05/04-at [place] card++++ B12 deficiency 08/12/2015 06/12/2017 Overview: b12-231, [...] 5 yrs-Mely. C scope 02/28/2010 Dr. Lynn, [place] internal hemorrhoid, normal colon, repeat 5 years [...] as of this encounter (statuses as of 08/18/2024) Immunizations Name Administration Dates Next Due PPD [...] as of this encounter Progress Notes * Cathy Brannon, Community Health Technical Implementation Lead - 08/18/2024 1:59 PM EDT Telemedicine visit: No Community Health Technical Implementation Lead (ZENY) documentation: CHW visit BP 122/62 (BP [...] each way [place] and back Cathy Brannon [facility] Community Health Worker Call or Text- [phone] Electronically signed by Cathy Brannon, Community Health Technical Implementation Lead at 08/18/2024 3:00 PM EDT documented in this encounter Plan of Treatment Upcoming Encounters Date Type Department Care Team (Late st Contact Info) Description 08/19/2024 8:30 AM EDT Scheduled Telephone Care Coordination and Integration [address] [place] [address] Cathy Brannon, Community Health Technical Implementation Lead [address] [place] [address] 08/21/2024 1:30 PM EDT Office Visit Cardiology, [place] [address] [place] [address] Melvina Mensah CRNP [address] [place] [address] 08/26/2024 8:30 AM EDT Scheduled Telephone Care Coordination and Integration [address] [place] [address] Cathy Brannon, Community Health Technical Implementation Lead [address] [place] [address] 08/27/2024 3:00 PM EDT Anticoagulation Pharmacy, [place] [address] [place] [address] Pharmacist1, [facility] [place] [address] [place] [address] 08/28/2024 6:00 PM EDT Office Visit [facility] [address] [place] [phone] Jag Kovacs MD [address] [place] [address] 09/11/2024 2:00 PM EDT Office Visit Podiatry, [facility] [address] [place], [place] [phone] Azul Nye DPM [address] [place] [address] Scheduled Procedures Name Priority Associated Diagnoses Date/Ti [...] Documents on File Type Date Recorded Patient Security And Compliance Analyst Jeromy VÁZQUEZ 08/07/2024 signed on 06/16 [place] DEPT OF [...] Advance Directives occurred with: Family Care Teams Contract Negotiator Relationship Specialty Start Date End Date Jag Kovacs MD [address] [place] [address] PCP - General Family Medicine 08/05/21 documented as of this encounter
--- OUTSIDE RECORDS SUMMARY | 2024-08-21 14:04 | External Medical Summary | Summary of Care ---
Author Name Unknown Organization [facility] Address [address] [place] [address] Phone [phone] Care Team Providers Care Limousine Rental Clerk Name Role Phone Jag Kovacs MD Primary Care Provider Encounter Details Date Type Department Care Team (Late st Contact Info) Description 08/18/2024 1:40 PM EDT Home Visit Care Coordination and Integration [address] [place] [address] Cathy Brannon, Community Health Medical Claims Assistant [address] [place] [address] Allergies Active Allergy Reactions Criticality [...] nuclear stress test 05/08/2016 06/12/2017 Overview: 05/04-at [place] card++++ B12 deficiency 08/12/2015 06/12/2017 Overview: b12-231, [...] 5 yrs-Mely. C scope 02/28/2010 Dr. Lynn, [place] internal hemorrhoid, normal colon, repeat 5 years [...] you 08/21/24 * Cathy Brannon, Community Health Medical Claims Assistant - 08/18/2024 1:59 PM EDT Telemedicine visit: No Community Health Medical Claims Assistant (ZENY) documentation: CHW visit BP 122/62 (BP [...] each way [place] and back Cathy Brannon [facility] Community Health Worker Call or Text- [phone] documented in this encounter Plan of Treatment Upcoming Encounters Date Type Department Care Team (Late st Contact Info) Description 08/19/2024 8:30 AM EDT Scheduled Telephone Care Coordination and Integration [address] [place] [address] Cathy Brannon, Community Health Medical Claims Assistant [address] [place] [address] 08/21/2024 1:30 PM EDT Office Visit Cardiology, [address] [address] Melvina Mensah CRNP [address] [facility] [address] 08/26/2024 8:30 AM EDT Scheduled Telephone Care Coordination and Integration [address] [place] [address] Cathy Brannon, Community Health Medical Claims Assistant [address] [place] [address] 08/27/2024 3:00 PM EDT Anticoagulation Pharmacy, [place] [address] [place] [address] Pharmacist1, [facility] [place] [address] [place] [address] 08/28/2024 6:00 PM EDT Office Visit Family Practice, [place] [facility] [place] [place] [phone] Jag Kovacs MD [address] [place] [address] 09/11/2024 2:00 PM EDT Office Visit Podiatry, [facility] [address] [place] [address] Azul Nye DPM [address] [place] [address] Scheduled Procedures Name Priority Associated Diagnoses Date/Ti [...] Documents on File Type Date Recorded Patient Trimmer And Reinforcer Expl anation POL 08/07/2024 signed on 06/16 [...] Advance Directives occurred with: Family Care Teams Limousine Rental Clerk Relationship Specialty Start Date End Date Jag Kovacs MD [address] [place] [phone] PCP - General Family Medicine 08/05/21 documented as of this encounter
--- OUTSIDE RECORDS SUMMARY | 2024-08-21 14:04 | External Medical Summary | Summary of Care ---
Author Name Unknown Organization [facility] Address [address] [place] [address] Phone [phone] Care Team Providers Care Junior Java Developer Name Role Phone Jag Kovacs MD Primary Care Provider Reason for Visit * Reason Comments Dosage Adjustment In Person (Anticoag Cl inic) Encounter Details Date Type Department Care Team (Latest Contact Info) Description 08/13/2024 1:40 PM EDT Anticoagulation Pharmacy, [place] [address] [address] Pharmacist1, [facility] [place] [address] [address] Anticoagulation management encounter*; Hemiplegia, post-stroke (HCC); Paroxysmal atrial fibrillation (HCC) Allergies Active Allergy Reactions Criticality Noted Date Comments Diphenhydramine 09/03/2018 Epinephrine Other (Please comment) 07/03/2023 Propranolol Hcl 09/29/2010 "TIA" - like reactions Lisinopril Cough 08/04/2008 Mepivacaine Hcl 06/30/2008 With epi: whole face sagged Simvastatin 12/25/2012 Myalgia-nl CK documented as of this encounter (statuses as of 08/13/2024) Medications Medication Sig Dispensed Refills Start Date [...] Capsule before bedtime. 8 Capsule 07/28/2024 Active Metoprolol Tartrate 25 MG Oral Tablet (Lopressor) [...] as of this encounter (statuses as of 08/13/2024) Active Problems Problem Noted Date Diagnosed Date [...] as of this encounter (statuses as of 08/13/2024) Resolved Problems Problem Noted Date Diagnosed Date [...] nuclear stress test 05/08/2016 06/12/2017 Overview: 05/04-at [place] card++++ B12 deficiency 08/12/2015 06/12/2017 Overview: b12-231, [...] Palpitations 09/27/2012 06/12/2017 Overview: 09/30- Holter -nml>nl 4/16 Other screening mammogram 09/10/2012 Overview: Neg--08/30;;10/01;10/02;;10/04/15, Family [...] 03/03--nml, sm IH, prom EH--rpt 5 yrs-Mely. Noel scope 02/28/2010 Dr. Lynn, [place] internal hemorrhoid, normal colon, repeat 5 years [...] as of this encounter (statuses as of 08/13/2024) Immunizations Name Administration Dates Next Due PPD [...] the money to buy more. Never true 08/05/20 24 Within the past 12 months, t he food you bought just didn't last and you didn't have money to get more. Never true 08/05/2024 Childcare Answer Date Recorded Do you feel overwhelmed with taking care of a child, family member or friend? No 08/05/2024 Does your family need help f inding childcare? (Household - for ages 0-17 years) Not on file 08/05/2024 Clothing Answer Date Recorded Have you been unable to get clothing when it was really needed? No 08/05/2024 Is your family able to get c lothes or diapers when needed? (Household - for ages 0-17 years) Not on file 08/05/2024 Personal Safety Answer Date Recorded Do you feel unsafe or have concerns for your saf ety? No 08/05/2024 Do you have concerns for you r family's safety? (Household - for ages 0-17 years) Not on file 08/05/2024 Utilities Answer Date Recorded Do you have trouble paying y our heating, water, or electric bill? No 08/05/2024 Is your family able to pay t he heat, water, or electric bill? (Household - for ages 0-17 years) Not on file 08/05/2024 Does your family have access to good internet? (Household - for ages 0-17 years) Not on file 08/05/2024 Employment Status Answer Date Recorded Are you unemployed or without regular income? No 08/05/2024 Does the household have a re lar source of income? (Household - for ages 0-17 years) Not on file 08/05/2024 Social Connections Answer Date Recorded How often do you feel lonely or isolated from th ose around you? Never 08/05/2024 Financial Resource Strain Answer Date R ecorded Do you have any trouble payi ng for your medications, or do you think you might in the future? No 08/05/2024 Does your family have troubl e paying for medicine? (Household - for ages 0-17 years) Not on file 08/05/2024 Transportation Needs Answer Date Record ed Do you have trouble getting a ride to medical visits or work? (Adult - for ages 18 years and over) Not on file 08/05/2024 Does your family have a hard time getting a ride to doctors visits? (Household - for ages 0-17 years) Not on file 08/05/2024 Has lack of transportation k ept you from medical appointments, meetings, work, or from getting things needed for daily living? Check all that apply. No 08/05/2024 Do you (or your family) have trouble finding or paying for a ride (transportation)? (Household - for ages 0-17 years) Not on file 08/05/2024 Housing Stability Answer Date Recorded Do you currently live in a s helter or have no steady place to sleep at night? No 08/05/2024 Do you think you are at risk of becoming homeless? (Adult - for ages 18 years and over) Not on file 08/05/2024 Does your family worry about paying for your home or becoming homeless? (Household - for ages 0-17 years) Not on file 0 08/05/2024 Are you homeless or worried that you might be in the future? No 08/05/2024 Are you (or your family) darby eless or worried that you might be in the future? (Household - for ages 0-17 years) Not on file Food Insecurity Answer Date Recorded Do you need food for this week? No 08/05/2024 Are you able to get enough f ood for your family? (Household - for ages 0-17 years) Not on file 08/05/2024 Does your family need food t his week? (Household - for ages 0-17 years) Not on file 08/05/2024 Do you always have enough fo od for your family? (Household - for ages 0-17 years) Not on file 08/05/2024 Sex and Gender Information Value Date Recorded [...] as of this encounter Progress Notes * Jose Martin Castellon, [facility] - 08/13/2024 1:53 PM EDT Images from the original note were not included. Medication Therapy Disease Management - Anticoagulation Patient: Alka Lawson | : 1940 Subjective Patient-Reported Symptoms: Patient Findings Positives: Extra doses (took extra dose Sunday) Negatives: Signs/symptoms of thrombosis, Signs/symptoms of bleeding, Change in health, Change in alcohol use, Change in activity, Upcoming invasive procedure, Missed doses, Change in medications, Change in diet/appetite, Bruising Objective Current Warfarin Dose As of 08/13/2024 Warfarin maintenance plan: 6 mg (3 mg x 2) every Sun, Tue, Melany; 3 mg (3 mg x 1) all other days INR Result As of 08/13/2024 INR goal: 2.0-3.0 INR used for dosin.9 (08/13/2024) Assessment & Plan Warfarin Plan As of 08/13/2024 Full warfarin instructions: 08/13: Hold; Otherwise 6 mg every Sun, Tue, Melany; 3 mg all other days Next INR check: 08/27/2024 Repeat PT/INR in 2 week(s) Weekly dose: not changed Additional Dosing Information: I spent a total of 10-19 minutes (exact time 10 mins) on the date of service in preparation, delivery, and documentation of the care provided to Alka Lawson excluding any time spent in the performance of separately billed services or time spent by another provider/QHP. Jose Martin Castellon [facility] Clinical Pharmacist 08/13/2024, 1:55 PM documented in this encounter Plan of Treatment Upcoming Encounters Date Type Department Care Team (Late st Contact Info) Description 08/19/2024 8:30 AM EDT Scheduled Telephone Care Coordination and Integration [address] [place] [address] Cathy Brannon, Community Health Air Crew Member [address] [place] [address] 08/21/2024 1:30 PM EDT Office Visit Cardiology, [address] [address] Melvina Mensah CRNP [address] [place] [address] 08/26/2024 8:30 AM EDT Scheduled Telephone Care Coordination and Integration [address] [place] [address] Cathy Brannon, Community Health Air Crew Member [address] [place] [address] 08/27/2024 3:00 PM EDT Anticoagulation Pharmacy, [place] [address] [address] Pharmacist1, [facility] [place] [address] [address] 08/28/2024 6:00 PM EDT [facility] [address] [facility] [place] [phone] Jag Kovacs MD [address] [place] [address] 09/11/2024 2:00 PM EDT Office Visit Podiatry, [facility] [address] [facility] [place] [address] Azul Nye, CHUCK[place] [address] [place] [address] Scheduled Procedures Name Priority Associated Diagnoses Date/Ti [...] Not on filedocumented as of this encounter Procedures Procedure Name Priority Date/Time Associated Diagnosis Comments INR FINGERSTICK, POINT OF CARE STAT 08/13/2024 1:55 PM EDT Hemiplegia, post-stroke (HCC) Paroxysmal atrial fibrillation (HCC) Anticoagulation management encounter documented in this encounter Results * INR FINGERSTICK, POINT OF CARE (08/13/2024 1:55 PM EDT) Fingerstick INR 3.9 INR 1:56 PM EDT LABORATORY [place] [id number] Blood 08/13/2024 1:55 PM EDT 08/13/2024 1:56 PM EDT Narrative [place] [id number] - 08/13/2024 1:56 PM EDT Therapeutic ranges for non-operative patients: Prophylaxsis/treatment of DVT: (Range:2.0-3.0) Treatment of pulmonary embolism:(Range:2.0-3.0) Prevention of systemic embolism from: -tissue heart valves -acute myocardial infarction -valvular heart disease -atrial fibrillation (Range: 2.0-3.0) Mechanical prosthetic valves: (Range: 2.5-3.5) Jose Martin Castellon [facility] LAB POINT OF CARE TE ST DOCKED DEVICE UNSOLICITED RESULTS [place] [id number] [place] [phone] documented in this encounter Visit Diagnoses Diagnosis Anticoagulation management encounter- Primary Encounter for therapeutic drug monitoring Hemiplegia, post-stroke (HCC) Hemiplegia affecting unspecified side, late effect of cerebrovascular disease Paroxysmal atrial fibrillation (HCC) Atrial fibrillation documented in this encounter Additional Health Concerns Infection Onset Date Last Indicated Resolved Time ESBL 07/26/2024 07/26/2024 documented as of this encounter Advance Directives Documents on File Type Date Recorded Patient Instructor Apparel Manufacture Jeromy VÁZQUEZ 08/07/2024 signed on 06/16 RICHELLE [...] Advance Directives occurred with: Family Care Teams Junior Java Developer Relationship Specialty Start Date End Date Jag Kovacs MD [address] [address] PCP - General Family Medicine 08/05/21 documented as of this encounter
--- OUTSIDE RECORDS SUMMARY | 2024-08-21 14:04 | External Medical Summary ---
Author Name Unknown Address Unknown Organization : Laboratory Report Ordering Provider Test Date Status AYLIN MARK 08/13/2024 13:55:26 Final Therapeutic ranges for non-o perative patients:
Prophylaxsis/treatment of DVT: (Range:2.0-3.0)
Treatment of pulmonary embolism:(Range:2.0-3.0)
Prevention of systemic embolism from:
-tissue heart valves
-acute myocardial infarction
-valvular heart disease
-atrial fibrillation
(Range: 2.0-3.0)
Mechanical prosthetic valves: (Range: 2.5-3.5) Observation Date Value Abnormality Reference (Units ) Status INR in Capillary blood by Coagulation assay 08/13/2024 13:55:26 3.9 (INR) Final Performing Location
--- OUTSIDE RECORDS SUMMARY | 2024-08-21 14:04 | External Medical Summary | Summary of Care ---
Author Name Unknown Organization [facility] Address [address] [place] [address] Phone [phone] Care Team Providers Care Sawmill Supervisor Name Role Phone Jag Kovacs MD Primary Care Provider Encounter Details Date Type Department Care Team (Late st Contact Info) Description 08/15/2024 12:50 PM EDT Scheduled Telephone Care Coordination and Integration [address] [place] [address] Cathy Brannon, Community Health Yard Jacker [address] [place] [address] Allergies Active Allergy Reactions Criticality Noted Date Comments Diphenhydramine 09/03/2018 Epinephrine Other (Please comment) 07/03/2023 Propranolol Hcl 09/29/2010 "TIA" - like reactions Lisinopril Cough 08/04/2008 Mepivacaine Hcl 06/30/2008 With epi: whole face sagged Simvastatin 12/25/2012 Myalgia-nl CK documented as of this encounter (statuses as of 08/15/2024) Medications Medication Sig Dispensed Refills Start Date [...] as of this encounter (statuses as of 08/15/2024) Active Problems Problem Noted Date Diagnosed Date [...] as of this encounter (statuses as of 08/15/2024) Resolved Problems Problem Noted Date Diagnosed Date [...] nuclear stress test 05/08/2016 06/12/2017 Overview: 05/04-at [place] card++++ B12 deficiency 08/12/2015 06/12/2017 Overview: b12-231, [...] Palpitations 09/27/2012 06/12/2017 Overview: 09/30- Holter -nml>nl 16 Other screening mammogram 09/10/2012 Overview: Neg--08/30;;10/01;10/02;;10/04/15, Family [...] 5 yrs-Mely. Noel scope 02/28/2010 Dr. Lynn, [place] internal hemorrhoid, normal colon, repeat 5 years [...] as of this encounter (statuses as of 08/15/2024) Immunizations Name Administration Dates Next Due PPD [...] 08/05/2024 Does the household have a re gular [...] Progress Notes * Cathy Brannon, Community Health Yard Jacker - 08/15/2024 1:35 PM EDT Telemedicine visit: No Community Health Yard Jacker (ZENY) documentation: CHW outbound call Which level/role should the patient go to? Transfer Task: CHW: Community Health Worker (CHW) CHW tried to make contact with patient she asked if we can talk another time CHW tried to ask about her symptoms She stated she is trying to get a shower CHW is scheduled to go see patient on Sunday [facility] Cathy Brannon [facility] Community Health Worker Call or Text- [phone] documented in this encounter Plan of Treatment Upcoming Encounters Date Type Department Care Team (Late st Contact Info) Description 08/18/2024 1:40 PM EDT Home Visit Care Coordination and Integration [address] [place] [address] Cathy Brannon Community Health Yard Jacker [address] [place] [address] 08/19/2024 8:30 AM EDT Scheduled Telephone Care Coordination and Integration [address] [place] [address] Cathy Brannon Community Health Yard Jacker [address] [place] [address] 08/21/2024 1:30 PM EDT Office Visit Cardiology, [place] [address] [place] [address] Melvina Mensah CRNP [address] [facility] [place] [address] 08/26/2024 8:30 AM EDT Scheduled Telephone Care Coordination and Integration [address] [place] [address] Cathy Brannon, Community Health Yard Jacker [address] [place] [address] 08/27/2024 3:00 PM EDT Anticoagulation Pharmacy, [place] [address] [address] Pharmacist1, [facility] [place] [address] [address] 08/28/2024 6:00 PM EDT Office Visit Family [facility] [address] [place] [address] Jag Kovacs MD [address] [place] [address] 09/11/2024 2:00 PM EDT Office Visit Podiatry, [address] [address] Azul Nye [facility] [address] [place] [address] Scheduled Procedures Name Priority Associated Diagnoses Date/Ti [...] Documents on File Type Date Recorded Patient Nutrition Technician Expl anation POLST 08/07/2024 signed on 06/16 [...] Advance Directives occurred with: Family Care Teams Sawmill Supervisor Relationship Specialty Start Date End Date Jag Kovacs MD [address] [address] PCP - General Family Medicine 08/05/21 documented as of this encounter
--- OUTSIDE RECORDS SUMMARY | 2024-08-21 14:04 | External Medical Summary | Summary of Care ---
Author Name Unknown Organization [facility] Address [address] [place] [address] Phone [phone] Care Team Providers Care Sales Commissions Analyst Name Role Phone Jag Kovacs MD Primary Care Provider Encounter Details Date Type Department Care Team (Late st Contact Info) Description 08/12/2024 10:15 AM EDT Scheduled Telephone Care Coordination and Integration [address] [place] [address] Cathy Brannon, Community Health American Sign Language Teacher [address] [place] [address] Allergies Active Allergy Reactions Criticality Noted Date Comments Diphenhydramine 09/03/2018 Epinephrine Other (Please comment) 07/03/2023 Propranolol Hcl 09/29/2010 "TIA" - like reactions Lisinopril Cough 08/04/2008 Mepivacaine Hcl 06/30/2008 With epi: whole face sagged Simvastatin 12/25/2012 Myalgia-nl CK documented as of this encounter (statuses as of 08/12/2024) Medications Medication Sig Dispensed Refills Start Date [...] as of this encounter (statuses as of 08/12/2024) Active Problems Problem Noted Date Diagnosed Date [...] as of this encounter (statuses as of 08/12/2024) Resolved Problems Problem Noted Date Diagnosed Date [...] nuclear stress test 05/08/2016 06/12/2017 Overview: 05/04-at [place] card++++ B12 deficiency 08/12/2015 06/12/2017 Overview: b12-231, [...] 5 yrs-Mely. Noel scope 02/28/2010 Dr. Lynn, [place] internal hemorrhoid, normal colon, repeat 5 years [...] as of this encounter (statuses as of 08/12/2024) Immunizations Name Administration Dates Next Due PPD [...] Progress Notes * Cathy Brannon, Community Health American Sign Language Teacher - 08/12/2024 11:09 AM EDT Telemedicine visit: No Community Health American Sign Language Teacher (ZENY) documentation: CHW outbound call [facility] CHW left detailed message and supplied phone number for patient to return call CHW will do another follow up phone call Cathy Brannon [facility] Community Health Worker Call or Text- [phone] Which level/role should the patient go to? Transfer Task: CHW: Community Health Worker (CHW) Please call for weekly follow up x4 weeks Recent hospital stay for fall, UTI Complete general CHW survey Red flags - fall, weakness, fever, pain/burning with urination Primary CM Bria Waggoner [phone] Electronically signed by Cathy Brannon, Community Health American Sign Language Teacher at 08/12/2024 11:21 AM EDT documented in this encounter Plan of Treatment Upcoming Encounters Date Type Department Care Team (Late st Contact Info) Description 08/13/2024 1:40 PM EDT Anticoagulation Pharmacy, [place] [address] [address] Pharmacist1, [facility] [place] [address] [address] 08/19/2024 8:30 AM EDT Scheduled Telephone Care Coordination and Integration [address] [place] [address] Cathy Brannon, Community Health American Sign Language Teacher [address] [place] [address] 08/21/2024 1:30 PM EDT Office Visit Cardiology, [place] [address] [place] [address] Melvina Mensah CRNP [address] [place] [place] [address] 08/26/2024 8:30 AM EDT Scheduled Telephone Care Coordination and Integration [address] [place] [address] Cathy Brannon, Community Health American Sign Language Teacher [address] [place] [address] 08/28/2024 6:00 PM EDT Office Visit Family [facility] [address] [place] [phone] Jag Kovacs MD [address] [place] [address] 09/11/2024 2:00 PM EDT Office Visit Podiatry, [facility] [address] [place] [address] Azul Nye DPM [address] [place] [address] Scheduled Procedures Name Priority Associated Diagnoses Date/Ti [...] Documents on File Type Date Recorded Patient Food And Beverage Service Manager Expl anation KATHIE 08/07/2024 signed on 06/16 RIC[place] DEPT OF [...] Advance Directives occurred with: Family Care Teams Sales Commissions Analyst Relationship Specialty Start Date End Date Jag Kovacs MD [address] [place] [address] PCP - General Family Medicine 08/05/21 documented as of this encounter
--- OUTSIDE RECORDS SUMMARY | 2024-08-21 14:05 | External Medical Summary | Summary of Care ---
Author Name Unknown Organization [facility] Address [address] [place] [address] Phone [phone] Care Team Providers Care Compliance Analyst Name Role Phone Jag Kovacs MD Primary Care Provider Encounter Details Date Type Department Care Team (Late st Contact Info) Description 08/07/2024 Telephone Gastroenterology, [place] [address] [place] [address] Specified, Jaja No Resource [address] [place] [address] Allergies Active Allergy Reactions Criticality Noted Date Comments Diphenhydramine 09/03/2018 Epinephrine Other (Please comment) 07/03/2023 Propranolol Hcl 09/29/2010 "TIA" - like reactions Lisinopril Cough 08/04/2008 Mepivacaine Hcl 06/30/2008 With epi: whole face sagged Simvastatin 12/25/2012 Myalgia-nl CK documented as of this encounter (statuses as of 08/07/2024) Medications Medication Sig Dispensed Refills Start Date [...] as of this encounter (statuses as of 08/07/2024) Active Problems Problem Noted Date Diagnosed Date [...] as of this encounter (statuses as of 08/07/2024) Resolved Problems Problem Noted Date Diagnosed Date [...] nuclear stress test 05/08/2016 06/12/2017 Overview: 05/04-at [place] card++++ B12 deficiency 08/12/2015 06/12/2017 Overview: b12-231, [...] 5 yrs-Mely. Noel scope 02/28/2010 Dr. Lynn, [place] internal hemorrhoid, normal colon, repeat 5 years [...] as of this encounter (statuses as of 08/07/2024) Immunizations Name Administration Dates Next Due PPD [...] encounter Miscellaneous Notes * Telephone Encounter - Macy Hansen OSA - 08/07/2024 9:14 AM EDT Checking with PAT to see if pt needs OR. * Telephone Encounter - Delia Alegria OSA - 08/07/2024 6:47 AM EDT Order COLONOSCOPY, GI REFERRAL OP [[id number]] (Order [id number]) Adele Potter 08/06/2024 11:00 AM Office Visit Description: 84 year old female Provider: Jag Kovacs MD Department: [facility] Order Information Date and Time Department Ordering/Authorizing 08/06/2024 11:10 AM Jag Henderson MD Order Providers Authorizing Provider Encounter Provider ([id number]) Jag Kovacs MD ([id number]) Jag Kovacs MD Priority and Order Details Priority Class Within 30 days (routine) Referral Quantity Ordering Quantity 1 Collection Information Visit Disposition Dispositions Check-out Note Return if symptoms worsen or fail to improve and as scheduled, for Labs 2-5 Days Before Next Visit.Please put next appt date/time on a card. Comments ALERT: Do not order for pediatric patients (18 years or younger). Cancel off screen and order PEDS GASTROENTEROLOGY CONSULT (Type: 1 visit only-Evaluate and Treat) The following Pt. Instructions are available: - Gastro Colonoscopy Prep Instructions [53336] - Gastro Colonoscopy Prep Instructions (Malagasy Version) [[id number]] Go to the Pt. Instructions section within the Visit Navigator to access. Colonoscopy ASGE Guidelines: Postadenoma resection: 3-10 adenomas or adenoma with villous features, greater than or equal 1 cm, or with high-grade dysplasia (3 yr intervals) ADDITIONAL INFORMATION 1. Is the patient on Coumadin? Yes--Coumadin can be stopped for 5 days 2. Is the patient on Pradaxa? No Order Questions Question Answer Referral Priority Within 30 days (routine) Where should this appointment be scheduled? [facility] Referral (Authorized) ID: [id number] Created on: 08/06/2024 Referred by Referred to Jag Kovacs MD Gastroenterology Reason: Ancillary Services Required Priority: Within 30 days (routine) Type: Ancillary Services Visits Requested: 999 Decision Date: 08/06/2024 Start Date: 08/06/2024 Related Appointments None Associated Diagnoses Special screening for malignant neoplasms, colon [Z12.11] Encounter View Encounter Reprint Requisition COLONOSCOPY, GI REFERRAL OP (Order #[id number]) on 08/06/24 Detailed Information Priority and Order Details Reference Links Neighborly Acct Guarantor Acct Type [id number] ADELE POTTER Personal/Family [1] Service Location Name Address Phone [facility] [address] [facility] [phone] Currently Active Insurance Payor Plan Subscriber Member ID MEDICARE MEDICARE A AND B ADELE POTTER [id number] [facility] SECURITY 65 MEDICARE SUPPLEMENT ADELE POTTER [id number] documented in this encounter Plan of Treatment Upcoming Encounters Date Type Department Care Team (Late st Contact Info) Description 08/12/2024 10:15 AM EDT Scheduled Telephone Care Coordination and Integration [address] [place] [address] Cathy Brannon [facility] Meat Loiner [address] [place] [address] 08/19/2024 8:30 AM EDT Scheduled Telephone Care Coordination and Integration [address] [place] [address] Cathy Brannon, Community [facility] Meat Loiner [address] [place] [address] 08/21/2024 1:30 PM EDT Office Visit Cardiology, [place] [address] [place] [address] Melvina Mensah CRNP [address] [place] [address] 08/26/2024 8:30 AM EDT Scheduled Telephone Care Coordination and Integration [address] [place] [address] Cathy Brannon, Community Health Meat Loiner [address] [place] [address] 08/28/2024 6:00 PM EDT Office Visit Family [facility], [place] [address] [place] [phone] Jag Kovacs MD [address] [place] [address] 09/11/2024 2:00 PM EDT Office Visit Podiatry, [facility] [address] [place] [address] Azul Nye DPM [address] [place] [address] Scheduled Procedures Name Priority Associated Diagnoses Date/Ti [...] documented as of this encounter Advance Directives * Full Code (Latest Code Status on [...] Advance Directives occurred with: Family Care Teams Compliance Analyst Relationship Specialty Start Date End Date Jag Kovacs MD [address] [place] [address] PCP - General Family Medicine 08/05/21 documented as of this encounter
--- OUTSIDE RECORDS SUMMARY | 2024-08-21 14:05 | External Medical Summary | Summary of Care ---
Author Name Unknown Organization [facility] Address [address] [place] [address] Phone [phone] Care Team Providers Care Drum Sander Setter Name Role Phone Jag Kovacs MD Primary Care Provider Encounter Details Date Type Department Care Team (Late st Contact Info) Description 08/12/2024 10:15 AM EDT Scheduled Telephone Care Coordination and Integration [address] [place] [address] Cathy Brannon, Community Health Factory Machine Computer Operator [address] [place] [address] Allergies Active Allergy Reactions Criticality [...] nuclear stress test 05/08/2016 06/12/2017 Overview: 05/04-at [place] card++++ B12 deficiency 08/12/2015 06/12/2017 Overview: b12-231, [...] 5 yrs-Mely. Noel scope 02/28/2010 Dr. Lynn, [place] internal hemorrhoid, normal colon, repeat 5 years [...] Progress Notes * Cathy Brannon, Community Health Factory Machine Computer Operator - 08/12/2024 11:09 AM EDT Telemedicine visit: No Community Health Factory Machine Computer Operator (ZENY) documentation: CHW outbound call [facility] CHW left detailed message and supplied phone number for patient to return call CHW will do another follow up phone call Cathy Brannon [facility] Community Health Worker Call or Text- [phone] Which level/role should the patient go to? Transfer Task: CHW: Community Health Worker (CHW) Please call for weekly follow up x4 weeks Recent hospital stay for fall, UTI Complete general CHW survey Red flags - fall, weakness, fever, pain/burning with urination Primary CM Bria Waggoner [phone] Electronically signed by Cathy Brannon, Community Health Factory Machine Computer Operator at 08/12/2024 11:21 AM EDT documented in this encounter Plan of Treatment Upcoming Encounters Date Type Department Care Team (Late st Contact Info) Description 08/13/2024 1:40 PM EDT Anticoagulation Pharmacy, [place] [address] [place] [address] Pharmacist1, [facility] [place] [address] [place] [address] 08/19/2024 8:30 AM EDT Scheduled Telephone Care Coordination and Integration [address] [place] [address] Cathy Brannon, Community Health Factory Machine Computer Operator [address] [place] [address] 08/21/2024 1:30 PM EDT Office Visit Cardiology, [place] [address] [place] [address] Melvina Mensah CRNP [address] [place] [address] 08/26/2024 8:30 AM EDT Scheduled Telephone Care Coordination and Integration [address] [place] [address] Cathy Brannon, Community Health Factory Machine Computer Operator [address] [place] [address] 08/28/2024 6:00 PM EDT Office Visit Family [facility] [address] [place] [phone] Jag Kovacs MD [address] [place] [address] 09/11/2024 2:00 PM EDT Office Visit Podiatry, [facility] [address] [place] [address] Azul Nye DPM [address] [place] [address] Scheduled Procedures Name Priority Associated Diagnoses Date/Ti [...] Documents on File Type Date Recorded Patient Student Services Representative Expl anation KATHIE 08/07/2024 signed on 06/16 [...] Advance Directives occurred with: Family Care Teams Drum Sander Setter Relationship Specialty Start Date End Date Jag Kovacs MD [address] [address] PCP - General Family Medicine 08/05/21 documented as of this encounter
--- OUTSIDE RECORDS SUMMARY | 2024-08-21 14:05 | External Medical Summary | Summary of Care ---
Author Name Unknown Organization [facility] Address [address] [place] [address] Phone [phone] Care Team Providers Care Solar Designer Name Role Phone Jag Kovacs MD Primary Care Provider Encounter Details Date Type Department Care Team (Late st Contact Info) Description 08/07/2024 Telephone Gastroenterology, [place] [address] [place] [address] Specified, Jaja No Resource [address] [place] [address] Allergies Active Allergy Reactions Criticality [...] nuclear stress test 05/08/2016 06/12/2017 Overview: 05/04-at [place] card++++ B12 deficiency 08/12/2015 06/12/2017 Overview: b12-231, [...] 5 yrs-Mely. Noel scope 02/28/2010 Dr. Lynn, [place] internal hemorrhoid, normal colon, repeat 5 [...] Hansen OSA - 08/07/2024 9:14 AM EDT Per PAT pt needs [facility]. Spoke to pt, states she wants to go back to [place] for procedure. * Telephone Encounter - Delia Alegria OSA - 08/07/2024 6:47 AM EDT Order COLONOSCOPY, GI REFERRAL OP [[id number]] (Order [id number]) Adele Potter 08/06/2024 11:00 AM Office Visit Description: 84 year old female Provider: Jag Kovacs MD Department: [facility] Order Information Date and Time Department Ordering/Authorizing 08/06/2024 11:10 AM Jag Henderson MD Order Providers Authorizing Provider Encounter Provider ([id number]) Jag Kovacs MD ([id number]) Jag Kovacs MD Priority and Order Details [...] are available: - Gastro Colonoscopy Prep Instructions [[id number]] - Gastro Colonoscopy Prep Instructions (Swazi Version) [[id number]] Go to the Pt. Instructions section within [...] (routine) Where should this appointment be scheduled? Brandie Referral (Authorized) ID: [id number] Created on: 08/06/2024 Referred by Referred to Jag Kovacs MD Gastroenterology Reason: Ancillary Services Required Priority: Within 30 days (routine) Type: Ancillary Services Visits Requested: 999 Decision Date: 08/06/2024 Start Date: 08/06/2024 Related Appointments None Associated Diagnoses Special screening for malignant neoplasms, colon [Z12.11] Encounter View Encounter Reprint Requisition COLONOSCOPY, GI REFERRAL OP (Order #[id number]) on 08/06/24 Detailed Information Priority and Order Details Reference Links Neighborly Acct Guarantor Acct Type [id number] ADELE POTTER Personal/Family [1] Service Location Name Address Phone [facility] [address] [facility] [phone] Currently Active Insurance Payor Plan Subscriber Member ID MEDICARE MEDICARE A AND B ADELE POTTER [id number] [facility]) SECURITY 65 MEDICARE SUPPLEMENT ADELE POTTER [id number] documented in this encounter Plan of Treatment Upcoming Encounters Date Type Department Care Team (Late st Contact Info) Description 08/12/2024 10:15 AM EDT Scheduled Telephone Care Coordination and Integration [address] [place] [address] Cathy Brannon [facility] Business Integration Analyst [address] [place] [address] 08/19/2024 8:30 AM EDT Scheduled Telephone Care Coordination and Integration [facility] [place] [place] [address] Cathy Brannon, Community Health Business Integration Analyst [address] [place] [address] 08/21/2024 1:30 PM EDT Office Visit [facility], [place] [address] [place] [address] Melvina Mensah CRNP [address] [facility] [place] [address] 08/26/2024 8:30 AM EDT Scheduled Telephone Care Coordination and Integration [address] [place] [address] Cathy Brannon, Community Health Business Integration Analyst [address] [place] [address] 08/28/2024 6:00 PM EDT Office Visit Family [facility], [place] [address] [place] [phone] Jag Kovacs MD [address] [place] [address] 09/11/2024 2:00 PM EDT Office Visit Podiatry, [facility] [address] [place] [address] Azul Nye DPM [address] [place] [address] Scheduled Procedures Name Priority Associated Diagnoses Date/Ti [...] Documents on File Type Date Recorded Patient Experience Specialist Expl anation POLST 08/07/2024 signed on 06/16 [...] Advance Directives occurred with: Family Care Teams Solar Designer Relationship Specialty Start Date End Date Jag Kovacs MD [address] [address] PCP - General Family Medicine 08/05/21 documented as of this encounter
--- OUTSIDE RECORDS SUMMARY | 2024-08-21 14:05 | External Medical Summary | Summary of Care ---
Author Name Unknown Organization [facility] Address [address] [place] [address] Phone [phone] Care Team Providers Care Box Loader Name Role Phone Jag Kovacs MD Primary Care Provider Encounter Details Date Type Department Care Team (Late st Contact Info) Description 08/07/2024 Telephone Gastroenterology, [place] [address] [place] [address] Specified, Jaja No Resource [address] [place] [address] Allergies Active Allergy Reactions Criticality [...] nuclear stress test 05/08/2016 06/12/2017 Overview: 05/04-at [place] card++++ B12 deficiency 08/12/2015 06/12/2017 Overview: b12-231, [...] 5 yrs-Mely. Noel scope 02/28/2010 Dr. Lynn, [place] internal hemorrhoid, normal colon, repeat 5 years [...] AM EDT Order COLONOSCOPY, GI REFERRAL OP [[id number]] (Order [id number]) Adele Potter 08/06/2024 11:00 AM Office Visit Description: 84 year old female Provider: Jag Kovacs MD Department: [facility] Order Information Date and Time Department Ordering/Authorizing 08/06/2024 11:10 AM Jag Henderson MD Order Providers Authorizing Provider Encounter Provider ([id number]) Jag Kovacs MD ([id number]) Jag Kovacs MD Priority and Order Details [...] are available: - Gastro Colonoscopy Prep Instructions [[id number]] - Gastro Colonoscopy Prep Instructions (Kyrgyz Version) [72272] Go to the Pt. Instructions section within [...] appointment be scheduled? [facility] Referral (Authorized) ID: [id number] Created on: 08/06/2024 Referred by Referred to Jag Kovacs MD Gastroenterology Reason: Ancillary Services Required Priority: Within 30 days (routine) Type: Ancillary Services Visits Requested: 999 Decision Date: 08/06/2024 Start Date: 08/06/2024 Related Appointments None Associated Diagnoses Special screening for malignant neoplasms, colon [Z12.11] Encounter View Encounter Reprint Requisition COLONOSCOPY, GI REFERRAL OP (Order #[id number]) on 08/06/24 Detailed Information Priority and Order Details Reference Links Neighborly Acct Guarantor Acct Type [id number] ADELE POTTER Personal/Family [1] Service Location Name Address Phone [facility] [address] [facility] [phone] Currently Active Insurance Payor Plan Subscriber Member ID MEDICARE MEDICARE A AND B ADELE POTTER [id number] [facility] ([facility]) SECURITY 65 MEDICARE SUPPLEMENT ADELE POTTER [id number] documented in this encounter Plan of Treatment Upcoming Encounters Date Type Department Care Team (Late st Contact Info) Description 08/12/2024 10:15 AM EDT Scheduled Telephone Care Coordination and Integration [address] [place] [address] Cathy Brannon Community [facility] Marketing Rotation Associate [address] [place] [address] 08/19/2024 8:30 AM EDT Scheduled Telephone Care Coordination and Integration [address] [place] [address] Cathy Brannon, Community Health Marketing Rotation Associate [address] [place] [address] 08/21/2024 1:30 PM EDT Office Visit Cardiology, [place] [address] [place] [address] Melvina Mensah CRNP [address] [place] [address] 08/26/2024 8:30 AM EDT Scheduled Telephone Care Coordination and Integration [address] [place] [address] Cathy Brannon, Community Health Marketing Rotation Associate [address] [place] [address] 08/28/2024 6:00 PM EDT Office Visit Family [facility], [place] [address] [place] [phone] Jag Kovacs MD [address] [place] [address] 09/11/2024 2:00 PM EDT Office Visit Podiatry, [facility] [address] [place] [address] Azul Nye DPM [address] [place] [address] Scheduled Procedures Name Priority Associated Diagnoses Date/Ti [...] Documents on File Type Date Recorded Patient Animal Science Professor Expl ev VÁZQUEZ 08/07/2024 signed on 06/16 [place] [employer] * Full Code (Latest [...] Advance Directives occurred with: Family Care Teams Box Loader Relationship Specialty Start Date End Date Jag Kovacs MD [address] [address] PCP - General Family Medicine 08/05/21 documented as of this encounter
--- OUTSIDE RECORDS SUMMARY | 2024-08-21 14:05 | External Medical Summary | Summary of Care ---
Author Name Unknown Organization [facility] Address [address] [place] [address] Phone [phone] Care Team Providers Care Digital Community Manager Name Role Phone Jag Kovacs MD Primary Care Provider Encounter Details Date Type Department Care Team (Late st Contact Info) Description 08/12/2024 10:15 AM EDT Scheduled Telephone Care Coordination and Integration [address] [place] [address] Cathy Brannon, Community Health Litigation Attorney [address] [place] [address] Allergies Active Allergy Reactions Criticality [...] nuclear stress test 05/08/2016 06/12/2017 Overview: 05/04-at [place] card++++ B12 deficiency 08/12/2015 06/12/2017 Overview: b12-231, [...] 5 yrs-Mely. Noel scope 02/28/2010 Dr. Lynn, [place] internal hemorrhoid, normal colon, repeat 5 years [...] Progress Notes * Cathy Brannon, Community Health Litigation Attorney - 08/12/2024 11:09 AM EDT Telemedicine visit: No Community Health Litigation Attorney (ZENY) documentation: CHW outbound call [facility] CHW left detailed message and supplied phone number for patient to return call CHW will do another follow up phone call Cathy Brannon [facility] Community Health Worker Call or Text- [phone] Which level/role should the patient go to? Transfer Task: CHW: Community Health Worker (CHW) Please call for weekly follow up x4 weeks Recent hospital stay for fall, UTI Complete general CHW survey Red flags - fall, weakness, fever, pain/burning with urination Primary CM Bria Waggoner [phone] documented in this encounter Plan of Treatment Upcoming Encounters Date Type Department Care Team (Late st Contact Info) Description 08/13/2024 1:40 PM EDT Anticoagulation Pharmacy, [place] [address] [place] [address] Pharmacist1, [facility] [place] [address] [place] [address] 08/19/2024 8:30 AM EDT Scheduled Telephone Care Coordination and Integration [address] [place] [address] Cathy Brannon, Community Health Litigation Attorney [address] [place] [address] 08/21/2024 1:30 PM EDT Office Visit Cardiology, [place] [address] [place] [address] Melvina Mensah CRNP [address] [place] [address] 08/26/2024 8:30 AM EDT Scheduled Telephone Care Coordination and Integration [address] [place] [address] Cathy Brannon, Community Health Litigation Attorney [address] [place] [address] 08/28/2024 6:00 PM EDT Office Visit Family [facility] [address] [place] [address] Jag Kovacs MD [address] [place] [address] 09/11/2024 2:00 PM EDT Office Visit Podiatry, [facility] [address] [place] [address] Azul Nye DPM [address] [place] [address] Scheduled Procedures Name Priority Associated Diagnoses Date/Ti [...] Documents on File Type Date Recorded Patient Tax Collector Expl anation KATHIE 08/07/2024 signed on 06/16 [...] Advance Directives occurred with: Family Care Teams Digital Community Manager Relationship Specialty Start Date End Date Jag Kovacs MD [address] [place] [address] PCP - General Family Medicine 08/05/21 documented as of this encounter
--- OUTSIDE RECORDS SUMMARY | 2024-08-21 14:05 | External Medical Summary | Summary of Care ---
Author Name Unknown Organization [facility] Address [address] [place] [address] Phone [phone] Care Team Providers Care Audio Production Engineer Name Role Phone Jag Kovacs MD Primary Care Provider Reason for Visit * Reason Onset Date Comments Colonoscopy 08/07/2024 Encounter Details Date Type Department Care Team (Late st Contact Info) Description 08/07/2024 Telephone Gastroenterology, [place] [address] [place] [address] Specified, [facility] [address] [place] [address] Colonoscopy Allergies Active Allergy Reactions Criticality Noted Date Comments Diphenhydramine 09/03/2018 Epinephrine Other (Please comment) 07/03/2023 Propranolol Hcl 09/29/2010 "TIA" - like reactions Lisinopril Cough 08/04/2008 Mepivacaine Hcl 06/30/2008 With epi: whole face sagged Simvastatin 12/25/2012 Myalgia-nl CK documented as of this encounter (statuses as of 08/08/2024) Medications Medication Sig Dispensed Refills Start Date [...] as of this encounter (statuses as of 08/08/2024) Active Problems Problem Noted Date Diagnosed Date [...] as of this encounter (statuses as of 08/08/2024) Resolved Problems Problem Noted Date Diagnosed Date [...] nuclear stress test 05/08/2016 06/12/2017 Overview: 05/04-at [place] card++++ B12 deficiency 08/12/2015 06/12/2017 Overview: b12-231, [...] EH--rpt 5 yrs-Mely. Noel scope 02/28/2010 Dr. Lynn Gause internal hemorrhoid, normal colon, repeat 5 years [...] as of this encounter (statuses as of 08/08/2024) Immunizations Name Administration Dates Next Due PPD [...] 9:14 AM EDT Per PAT pt needs [facility]. Spoke to pt, states she wants to go back to [place] for procedure. * Telephone Encounter - Delia Alegria OSA - 08/07/2024 6:47 AM EDT Order COLONOSCOPY, GI REFERRAL OP [[id number]] (Order [id number]) Adele Potter 08/06/2024 11:00 AM Office Visit Description: 84 year old female Provider: Jag Kovacs MD Department: [facility] Order Information Date and Time Department Ordering/Authorizing 08/06/2024 11:10 AM Jag Henderson MD Order Providers Authorizing Provider Encounter Provider ([id number]) Jag Kovacs MD ([id number]) Jag Kovacs MD Priority and Order Details [...] are available: - Gastro Colonoscopy Prep Instructions [28003] - Gastro Colonoscopy Prep Instructions (Greenlandic Version) [17057] Go to the Pt. Instructions section within [...] appointment be scheduled? Brandie Referral (Authorized) ID: [id number] Created on: 08/06/2024 Referred by Referred to Jag Kovacs MD Gastroenterology Reason: Ancillary Services Required Priority: Within 30 days (routine) Type: Ancillary Services Visits Requested: 999 Decision Date: 08/06/2024 Start Date: 08/06/2024 Related Appointments None Associated Diagnoses Special screening for malignant neoplasms, colon [Z12.11] Encounter View Encounter Reprint Requisition COLONOSCOPY, GI REFERRAL OP (Order #[id number]) on 08/06/24 Detailed Information Priority and Order Details Reference Links Neighborly Acct Guarantor Acct Type [id number] ADELE POTTER Personal/Family [1] Service Location Name Address Phone [facility] [address] [facility] [phone] Currently Active Insurance Payor Plan Subscriber Member ID MEDICARE MEDICARE A AND B ADELE POTTER [id number] [facility] SECURITY 65 MEDICARE SUPPLEMENT ADELE POTTER [id number] documented in this encounter Plan of Treatment Upcoming Encounters Date Type Department Care Team (Late st Contact Info) Description 08/12/2024 10:15 AM EDT Scheduled Telephone Care Coordination and Integration [address], [place] [id number] Cathy Brannon, [facility] Sp[facility] [address] [place] [address] 08/19/2024 8:30 AM EDT Scheduled Telephone Care Coordination and Integration [address] [place] [address] Cathy Brannon, [facility] [address] [place] [address] 08/21/2024 1:30 PM EDT Office Visit Cardiology, [place] [address] [place] [address] Melvina Mensah CRNP [address] [place] [address] 08/26/2024 8:30 AM EDT Scheduled Telephone Care Coordination and Integration [address] [place] [address] Cathy Brannon, [facility] Health Spudder [address] [place] [address] 08/28/2024 6:00 PM EDT Office Visit [facility] [address] [place] [phone] Jag Kovacs MD [address] [place] [address] 09/11/2024 2:00 PM EDT Office Visit Podiatry, [facility] [address] [place] [address] Azul Nye DPM [address] [place] [address] Scheduled Procedures Name Priority Associated Diagnoses Date/Ti [...] Documents on File Type Date Recorded Patient Project Development Leader Jeromy VÁZQUEZ 08/07/2024 signed on 06/16 RICHELLE [...] Advance Directives occurred with: Family Care Teams Audio Production Engineer Relationship Specialty Start Date End Date Jag Kovacs MD [address] [place] [id number] PCP - General Family Medicine 08/05/21 documented as of this encounter
--- OUTSIDE RECORDS SUMMARY | 2024-08-21 14:06 | External Medical Summary | Summary of Care ---
Author Name Unknown Organization [facility] Address [address] [place] [address] Phone [phone] Care Team Providers Care Child Abuse Worker Name Role Phone Jag Kovacs MD Primary Care Provider Encounter Details Date Type Department Care Team (Late st Contact Info) Description 08/05/2024 Orders Only Outcomes Research Department [address] [place] [address] Maria Alejandra Mancini CHRA MyCode Research Other*[id number] Allergies Active Allergy Reactions Criticality Noted Date Comments Diphenhydramine 09/03/2018 Epinephrine Other (Please comment) 07/03/2023 Propranolol Hcl 09/29/2010 "TIA" - like reactions Lisinopril Cough 08/04/2008 Mepivacaine Hcl 06/30/2008 With epi: whole face sagged Simvastatin 12/25/2012 Myalgia-nl CK documented as of this encounter (statuses as of 08/05/2024) Medications Medication Sig Dispensed Refills Start Date [...] Tablets before bedtime. 30 Tablet 07/28/2024 Active documented as of this encounter (statuses as of 08/05/2024) Active Problems Problem Noted Date Diagnosed Date Second degree AV block 07/28/2024 Fall at [...] as of this encounter (statuses as of 08/05/2024) Resolved Problems Problem Noted Date Diagnosed Date [...] nuclear stress test 05/08/2016 06/12/2017 Overview: 05/04-at [place] card++++ B12 deficiency 08/12/2015 06/12/2017 Overview: b12-231, [...] 5 yrs-Mely. C scope 02/28/2010 Dr. Lynn, [place] internal hemorrhoid, normal colon, repeat 5 years [...] as of this encounter (statuses as of 08/05/2024) Immunizations Name Administration Dates Next Due PPD [...] the money to buy more. Never true 07/25/20 24 Within the past 12 months, t he food you bought just didn't last and you didn't have money to get more. Never true 07/25/2024 Childcare Answer Date Recorded Do you feel overwhelmed with taking care of a child, family member or friend? No 07/25/2024 Does your family need help f inding childcare? (Household - for ages 0-17 years) Not on file 07/25/2024 Clothing Answer Date Recorded Have you been unable to get clothing when it was really needed? No 07/25/2024 Is your family able to get c lothes or diapers when needed? (Household - for ages 0-17 years) Not on file 07/25/2024 Personal Safety Answer Date Recorded Do you feel unsafe or have concerns for your saf ety? No 07/25/2024 Do you have concerns for you r family's safety? (Household - for ages 0-17 years) Not on file 07/25/2024 Utilities Answer Date Recorded Do you have trouble paying y our heating, water, or electric bill? No 07/25/2024 Is your family able to pay t he heat, water, or electric bill? (Household - for ages 0-17 years) Not on file 07/25/2024 Does your family have access to good internet? (Household - for ages 0-17 years) Not on file 07/25/2024 Employment Status Answer Date Recorded Are you unemployed or without regular income? No 07/25/2024 Does the household have a re lar source of income? (Household - for ages 0-17 years) Not on file 07/25/2024 Social Connections Answer Date Recorded How often do you feel lonely or isolated from th ose around you? Never 07/25/2024 Financial Resource Strain Answer Date R ecorded Do you have any trouble payi ng for your medications, or do you think you might in the future? No 07/25/2024 Does your family have troubl e paying for medicine? (Household - for ages 0-17 years) Not on file 07/25/2024 Transportation Needs Answer Date Record ed Do you have trouble getting a ride to medical visits or work? (Adult - for ages 18 years and over) Not on file 07/25/2024 Does your family have a hard time getting a ride to doctors visits? (Household - for ages 0-17 years) Not on file 07/25/2024 Has lack of transportation k ept you from medical appointments, meetings, work, or from getting things needed for daily living? Check all that apply. No 07/25/2024 Do you (or your family) have trouble finding or paying for a ride (transportation)? (Household - for ages 0-17 years) Not on file 07/25/2024 Housing Stability Answer Date Recorded Do you currently live in a s helter or have no steady place to sleep at night? No 07/25/2024 Do you think you are at risk of becoming homeless? (Adult - for ages 18 years and over) Not on file 07/25/2024 Does your family worry about paying for your home or becoming homeless? (Household - for ages 0-17 years) Not on file 0 07/25/2024 Are you homeless or worried that you might be in the future? No 07/25/2024 Are you (or your family) darby eless or worried that you might be in the future? (Household - for ages 0-17 years) Not on file Food Insecurity Answer Date Recorded Do you need food for this week? No 07/25/2024 Are you able to get enough f ood for your family? (Household - for ages 0-17 years) Not on file 07/25/2024 Does your family need food t his week? (Household - for ages 0-17 years) Not on file 07/25/2024 Do you always have enough fo od for your family? (Household - for ages 0-17 years) Not on file 07/25/2024 Sex and Gender Information Value Date Recorded [...] No 07/27/2024 documented as of this encounter Plan of Treatment Upcoming Encounters Date Type Department Care Team (Late st Contact Info) Description 08/05/2024 11:30 AM EDT Scheduled Telephone Care Coordination and Integration [address] [place] [address] Cathy Brannon, Community [facility] Hydro Technician [address] [place] [address] 08/06/2024 11:00 AM EDT Office Visit [facility] [address] [place] [address] Jag Kovacs MD [address] [place], [place] [id number] 08/06/2024 2:20 PM EDT Anticoagulation Pharmacy, [place] [address] [place] [address] Pharmacist1, [facility] [place] [address] [place] [address] 08/12/2024 10:15 AM EDT Scheduled Telephone Care Coordination and Integration [address] [place] [address] Cathy Brannon [facility] Techn[facility] [address] [place] [address] 08/19/2024 8:30 AM EDT Scheduled Telephone Care Coordination and Integration [address] [place] [address] Cathy Brannon [facility] Techn[facility] [address] [place] [address] 08/21/2024 1:30 PM EDT Office Visit Cardiology, [place] [address] [place] [address] Melvina Mensah CRNP [address] [facility] [address] 08/26/2024 8:30 AM EDT Scheduled Telephone Care Coordination and Integration [address] [place] [address] Cathy Brannon, [facility] Techn[facility] [address] [place] [address] 08/28/2024 6:00 PM EDT Office Visit [facility] [address] [place] [phone] Jag Kovacs MD [address] [place] [address] 09/11/2024 2:00 PM EDT Office Visit Podiatry, [facility] [address] [place], [place] [phone] Azul Nye DPM [address] [place], [place] [id number] Scheduled Orders Name Type Priority Associated Diagnoses Orde r Schedule MYCODE SUBSEQUENT ADULT Lab Routine MyCode Research Other*[id number] Every 6 Months for 2 Occurrences starting 08/05/2024 until 08/25/2025 Scheduled Procedures Name Priority Associated Diagnoses Date/Ti [...] Depression Screening 07/25/2025 07/25/2024 GFR 07/28/2025 07/28/2024, 06/2024, 07/26/2024, Additional history exists DXA Scan [...] as of this encounter Visit Diagnoses Diagnosis MyCode Research Other*[id number] documented in this encounter Additional Health Concerns [...] Advance Directives occurred with: Family Care Teams Child Abuse Worker Relationship Specialty Start Date End Date Jag Kovacs MD [address] [address] PCP - General Family Medicine 08/05/21 documented as of this encounter
--- OUTSIDE RECORDS SUMMARY | 2024-08-21 14:06 | External Medical Summary | Summary of Care ---
Author Name Unknown Organization [facility] Address [address] [place] [address] Phone [phone] Care Team Providers Care Citrix Engineer Name Role Phone Jag Kovacs MD Primary Care Provider Reason for Referral * Evaluate & Treat - Unlimited Visits (Within 10 days (routine)) - Authorized Specialty Diagnoses / Procedures Referred By Bernard jo Referred To Contact Physical Therapy / Physical Medicine And Rehab Diagnoses Hemiplegia, post-stroke (HCC) Jag Kovacs MD [place] [id number] Referral ID Status Reason Start Date Expiration Date Visits Requested Visits Authorized [id number] Authorized Specialty Services Required 08/06/2024 999 [id number] Question Answer Referral Priority Within 10 days (routine) Where should this appointment be scheduled? [facility] [place] * Ancillary Services (Within 30 days (routine)) - Authorized Specialty Diagnoses / Procedures Referred By Bernard jo Referred To Contact Gastroenterology Diagnoses Special screening for malignant neoplasms, colon Jag Kovacs MD [address] [place] [address] Referral ID Status Reason Start Date Expiration Date Visits Requested Visits Authorized [id number] Authorized Ancillary Services Required 08/06/2024 999 999 Question Answer Referral Priority Within 30 days (routine) Where should this appointment be scheduled? [facility] ALERT: Do not order for pediatric patients (18 years or younger). Cancel off screen and order PEDS GASTROENTEROLOGY CONSULT (Type: 1 visit only-Evaluate and Treat) The following Pt. Instructions are available: - Gastro Colonoscopy Prep Instructions [[id number]] - Gastro Colonoscopy Prep Instructions (Guinean Version) [[id number]] Go to the Pt. Instructions section within the Visit Navigator to access. Colonoscopy ASGE Guidelines: Postadenoma resection: 3-10 adenomas or adenoma with villous features, greater than or equal 1 cm, or with high-grade dysplasia (3 yr intervals) ADDITIONAL INFORMATION 1. Is the patient on Coumadin? Yes--Coumadin can be stopped for 5 days 2. Is the patient on Pradaxa? No Reason for Visit * Reason Onset Date Comments Hospital Follow-Up [facility] ischarge 07/28 Immunizations 08/06/2024 [facility] Follow-Up 08/06/2024 Encounter Details Date Type Department Care Team (Late st Contact Info) Description 08/06/2024 11:00 AM EDT Office Visit [facility] [address] [place] [phone] Jag Kovacs MD [address] [place] [address] Hospital discharge follow-up*; Need for vaccination for zoster; Morbid (severe) obesity due to excess calories (HCC); Pulmonary hypertension, unspecified (HCC); Special screening for malignant neoplasms, colon; Paroxysmal atrial fibrillation (HCC); Type 2 diabetes mellitus with hemoglobin A1c goal of less than 8.0% (HCC); Acquired hypothyroidism; HTN, goal below 140/90; Hemiplegia, post-stroke (HCC) Allergies Active Allergy Reactions Criticality Noted Date Comments Diphenhydramine 09/03/2018 Epinephrine Other (Please comment) 07/03/2023 Propranolol Hcl 09/29/2010 "TIA" - like reactions Lisinopril Cough 08/04/2008 Mepivacaine Hcl 06/30/2008 With epi: whole face sagged Simvastatin 12/25/2012 Myalgia-nl CK documented as of this encounter (statuses as of 08/06/2024) Medications Medication Sig Dispensed Refills Start Date [...] as of this encounter (statuses as of 08/06/2024) Active Problems Problem Noted Date Diagnosed Date [...] as of this encounter (statuses as of 08/06/2024) Resolved Problems Problem Noted Date Diagnosed Date [...] nuclear stress test 05/08/2016 06/12/2017 Overview: 05/04-at [place] card++++ B12 deficiency 08/12/2015 06/12/2017 Overview: b12-231, [...] EH--rpt 5 yrs-DrKomar. Cohen scope 02/28/2010 Dr. Lynn [place] internal hemorrhoid, normal colon, repeat 5 years [...] as of this encounter (statuses as of 08/06/2024) Immunizations Name Administration Dates Next Due PPD [...] Date Smoking Tobacco: Never Smokeless Tobacco: Never Tobacco Cessation:Counseling Given: Not Answered Alcohol Use Standard Drinks/Week Comments No 0 [...] Sign Reading Time Taken Comments Blood Pressure 128/80 08/06/2024 10:44 AM EDT Pulse 71 08/06/2024 10:44 AM EDT Temperature 36.8 C (98.2 F) 08/06/2024 10:44 AM E DT Respiratory Rate 16 08/06/2024 10:44 AM EDT Oxygen Saturation 98% 08/06/2024 10:44 AM EDT Inhaled Oxygen Concentration - - Weight 79.2 kg (174 lb 9.6 oz) 08/06/2024 10:44 AM EDT Height 147.3 cm (4' 10") 08/06/2024 10:44 AM EDT Body Mass Index 36.49 08/06/2024 10:44 AM EDT documented in this encounter Functional Status Functional [...] No 07/27/2024 documented as of this encounter Patient Instructions * Patient Instructions* Maria Alejandra Hagen, MED ASSIST - 08/06/2024 10:47 AM EDT ~~PATIENT INSTRUCTIONS FOR SHINGRIX VACCINE~~ Possible side effects of Shingrix vaccine, (shingles), are usually mild and can include: 1. Soreness or redness at injection site 2. Low grade fever 3. Body aches You may use a fever / pain reducing medication as needed for these symptoms. LET YOUR DOCTOR KNOW IMMEDIATELY IF YOU HAVE DIFFICULTY BREATHING OR SWALLOWING, EXPERIENCE ITCHINGOF FEET OR HANDS, HAVE SWELLING OF EYES, FACE OR INSIDE OF NOSE. [facility] Insurance Billing and Co-Pay Information: Patient was advised they may still have a bill or copay due for the dispensed medication and therefore, [employer] [facility] will need to still attempt to collect the bill or copay over the phone or via mailed statement, but any questions regarding the amount billed or ability to pay please contact the pharmacy using the contact information on the bill received. [employer] copays are close to $0. In most cases copays will be around $10. The maximum co-pay patients may get is $200 but [facility] will work on a payment plan with patients if needed. documented in this encounter Progress Notes * Jag Kovacs MD - 08/06/2024 10:56 AM EDT SUBJECTIVE: Alka Lawson is a 84 year old female. Chief Complaint Patient presents with Hospital Follow-Up [facility] discharge 07/28 [facility] Follow-Up Recent Admission: Patient was recently admitted to [facility]. The date of discharge was 07/28/24. Discharge report received and reviewed. HPI: She fell at home; not sure why. She does not recall anything that caused her to fall. Her son picked her up. She was talking and seemed ok. They called the ambulance because she had fallen. They did not find any blood clots or bleeding in the brain. She feels as though her speech is worse, though objectively her feels she is back to where she was since the stroke in 2022. Patient Active Problem List Diagnosis Acquired hypothyroidism Dyslipidemia, goal LDL below 100 Type 2 diabetes mellitus with hemoglobin A1c goal of less than 8.0% ([facility]) HTN, goal below 140/90 Gastroesophageal reflux disease with esophagitis Diabetic polyneuropathy associated with type 2 diabetes mellitus (HCC) Paroxysmal atrial fibrillation (HCC) NSVT (nonsustained ventricular tachycardia) ([facility]) Gouty arthropathy Ambulatory dysfunction Extension of stroke (HCC) Hemiplegia, post-stroke (HCC) Complete heart block (HCC) Fall Intraventricular hemorrhage (HCC) Hydrocephalus (HCC) Fall at home Complicated UTI (urinary tract infection) Second degree AV block Morbid (severe) obesity due to excess calories (HCC) Pulmonary hypertension, unspecified (HCC) Current Outpatient Medications Medication Sig Dispense Refill Cyanocobalamin (B-12) 1000 MCG TABS Take 1 Tab by mouth daily. 30 Tab 5 zoster vac recomb adjuvanted (SHINGRIX) 50 MCG/0.5ML injection Inject 0.5 mL into a large muscle now and repeat dose in 60 to 180 days 1 Each 1 Vitamin D3 25 MCG (1000 UT) Oral Capsule Take 1 Capsule by mouth once. Atorvastatin Calcium 80 MG Oral Tablet (Lipitor) Take 1 Tablet by mouth every afternoon. 30 Tablet 0 Losartan Potassium 25 MG Oral Tablet (Cozaar) Take 1 Tablet by mouth in the morning. 30 Tablet 0 Acetaminophen 325 MG Oral Tablet (Tylenol) Take 2 Tablets by mouth every 8 hours as needed for Pain, Moderate. Hydrocortisone 1 % External Cream Apply topically to affected area daily as needed for Hemorrhoids.Apply to hemorhoids Allopurinol 100 MG Oral Tablet (Zyloprim) Take 2 tablets by mouth once daily 180 Tablet 1 glipiZIDE ER 10 MG Oral Tablet Extended Release 24 Hour (Glucotrol XL) TAKE 1 TABLET BY MOUTH ONCE DAILY 30 MINUTES BEFORE A MEAL 90 Tablet 1 hydroCHLOROthiazide 12.5 MG Oral Capsule (Hydrodiuril) Take 1 capsule by mouth once daily 90 Capsule 2 Gabapentin 300 MG Oral Capsule (Neurontin) Take 2 Capsules by mouth in the morning and 2 Capsules before bedtime. 360 Capsule 3 Omeprazole 40 MG Oral Capsule Delayed Release (PriLOSEC) Take 1 Capsule by mouth at bedtime. 90 Capsule 3 Synthroid 125 MCG Oral Tablet TAKE 1 TABLET BY MOUTH ONCE DAILY AT LEAST 30 MINUTES PRIOR TO BREAKFAST OR OTHER MEDICATIONS 90 Tablet 1 metFORMIN HCl 1000 MG Oral Tablet (Glucophage) Take 1 Tablet by mouth in the morning and 1 Tablet before bedtime. With meals.. Do not start before June 14, 2024. 180 Tablet 3 Bisacodyl 10 MG Rectal Suppository (Dulcolax) Administer 1 Suppository into the rectum in the morning. Potassium Chloride ER 10 MEQ Oral Tablet Extended Release Take 1 Tablet by mouth. In the morning. Warfarin Sodium 3 MG Oral Tablet (Coumadin) Take 1 Tablet by mouth in the morning. Cefdinir 300 MG Oral Capsule (Omnicef) Take 1 Capsule by mouth in the morning and 1 Capsule before bedtime. 8 Capsule 0 Metoprolol Tartrate 25 MG Oral Tablet (Lopressor) Take 0.5 Tablets by mouth in the morning and 0.5 Tablets before bedtime. 30 Tablet 0 Zoster Vac Recomb Adjuvanted 50 MCG/0.5ML Intramuscular Suspension Reconstituted (Shingrix) Inject 0.5 mL into a large muscle now and repeat dose in 60 to 180 days 1 Each 1 No current facility-administered medications for this visit. Current and discharge medications have been reconciled. Review of patient's allergies indicates: Allergen Reactions Diphenhydramine Epinephrine Other (Please comment) Inderal [Propranolol Hcl] "TIA" - like reactions Lisinopril Cough Mepivacaine Hcl With epi: whole face sagged Zocor [Simvastatin] Myalgia-nl CK OBJECTIVE: BP 128/80 | Pulse 71 | Temp 36.8 C (98.2 F) (Tympanic) | Resp 16 | Ht 1.473 m (4' 10") | Wt 79.2 kg (174 lb 9.6 oz) | SpO2 98% | BMI 36.49 kg/m | BSA 1.8 m REVIEW OF SYSTEMS: PHYSICAL EXAM: BP 128/80 | Pulse 71 | Temp 36.8 C (98.2 F) (Tympanic) | Resp 16 | Ht 1.473 m (4' 10") | Wt 79.2 kg (174 lb 9.6 oz) | SpO2 98% | BMI 36.49 kg/m | BSA 1.8 m Physical Exam Vitals reviewed. Constitutional: General: She is not in acute distress. Appearance: Normal appearance. She is not ill-appearing. Cardiovascular: Rate and Rhythm: Normal rate and regular rhythm. Heart sounds: No murmur heard. No friction rub. No gallop. Pulmonary: Effort: Pulmonary effort is normal. Breath sounds: No wheezing, rhonchi or rales. Musculoskeletal: Right lower leg: No edema. Left lower leg: No edema. Neurological: Mental Status: She is alert. ASSESSMENT: Hospital discharge follow-up (Primary) - DISCH MED RECON CUR MED LIS She appears to be back to baseline. Need for vaccination for zoster - Zoster Vac Recomb Adjuvanted 50 MCG/0.5ML Intramuscular Suspension Reconstituted (Shingrix); Inject 0.5 mL into a large muscle now and repeat dose in 60 to 180 days Morbid (severe) obesity due to excess calories (HCC) Pulmonary hypertension, unspecified (HCC) Mild per last ECHO. Euvolemic. Special screening for malignant neoplasms, colon - COLONOSCOPY, GI REFERRAL OP Discussed risks a/w this and she would like to have it. Paroxysmal atrial fibrillation (HCC) Pulse is regular today. Type 2 diabetes mellitus with hemoglobin A1c goal of less than 8.0% (HCC) Continue metformin and glipizide; f/u as scheduled. Acquired hypothyroidism Get labs done as planned; continue synthroid. HTN, goal below 140/90 Well controlled. Continue hctz, losartan. Hemiplegia, post-stroke (HCC) - PHYSICAL THERAPY REFERRAL OP She was supposed to have PT s/p discharge but this has not yet happened. Follow Up: Return if symptoms worsen or fail to improve and as scheduled, for Labs 2-5 Days Before Next Visit. | For: Labs 2-5 Days Before Next Visit | Check- out note: Please put next appt date/time on a card. PLAN: Continue present medication(s): Follow up as needed and as scheduled. I spent a total of 40-54 minutes (exact time 47 mins) minutes on the date of service in preparation, delivery, and documentation of the care provided to Alka Lawson excluding any time spent in performance of separately billed services. Jag Kovacs MD * Maria Alejandra Hagen MED ASSIST - 08/06/2024 10:43 AM EDT Chief Complaint Patient presents with Hospital Follow-Up [facility] discharge 07/28 PT is unsure if she has concerns. documented in this encounter Plan of Treatment Upcoming Encounters Date Type Department Care Team (Late st Contact Info) Description 08/06/2024 2:20 PM EDT Anticoagulation Pharmacy, [place] [address] [place] [address] Pharmacist1, [facility] [place] [address] [place] [address] 08/12/2024 10:15 AM EDT Scheduled Telephone Care Coordination and Integration [address] [place] [address] Cathy Brannon, [facility] [address] [place] [address] 08/19/2024 8:30 AM EDT Scheduled Telephone Care Coordination and Integration [address] [place] [address] Cathy Brannon, [facility] [address] [place] [address] 08/21/2024 1:30 PM EDT Office Visit Cardiology, [address] [address] Melvina Mensah CRNP [address] [place] [address] 08/26/2024 8:30 AM EDT Scheduled Telephone Care Coordination and Integration [address] [place] [address] Cathy Brannon, [facility] [address] [place] [address] 08/28/2024 6:00 PM EDT Office Visit Family [facility] [address] [place] [phone] Jag Kovacs MD [address] [place] [address] 09/11/2024 2:00 PM EDT Office Visit Podiatry, [address] [address] Azul Nye DPM [address] [place] [address] Scheduled Procedures Name Priority Associated Diagnoses Date/Ti me COLONOSCOPY FLEXIBLE PROXIMAL DIAGNOSTIC Recall Special screening for malignant neoplasms, colon GERD (gastroesophageal reflux disease) ESOPHAGOGASTRODUODENOSCOPY ( EGD), FLEXIBLE, TRANSORAL, DIAGNOSTIC Recall Special screening for malignant neoplasms, colon GERD (gastroesophageal reflux disease) Scheduled Referrals Name Type Priority Associated Diagnoses Orde r Schedule COLONOSCOPY, GI REFERRAL OP Referral Within 30 days (routine) Special screening for malignant neoplasms, colon Ordered: 08/06/2024 PHYSICAL THERAPY REFERRAL OP Referral Within 10 days (routine) Hemiplegia, post-stroke (HCC) Ordered: 08/06/2024 Health Maintenance Due Date Last Done Comments [...] as of this encounter Visit Diagnoses Diagnosis Hospital discharge follow-up- Primary Other follow-up examination Need for vaccination for zoster Need for prophylactic vaccination and inoculation against other viral diseases Morbid (severe) obesity due to excess calories (HCC) Pulmonary hypertension, unspecified (HCC) Special screening for malignant neoplasms, colon Paroxysmal atrial fibrillation (HCC) Atrial fibrillation Type 2 diabetes mellitus with hemoglobin A1c goal of less than 8.0% (HCC) Acquired hypothyroidism Unspecified hypothyroidism HTN, goal below 140/90 Unspecified essential hypertension Hemiplegia, post-stroke (HCC) Hemiplegia affecting unspecified side, late effect of cerebrovascular disease documented in this encounter Additional Health Concerns [...] Advance Directives occurred with: Family Care Teams Citrix Engineer Relationship Specialty Start Date End Date Jag Kovacs MD [address] [phone] PCP - General Family Medicine 08/05/21 documented as of this encounter
--- OUTSIDE RECORDS SUMMARY | 2024-08-21 14:06 | External Medical Summary | Summary of Care ---
Author Name Unknown Organization [facility] Address [address] [place] [address] Phone [phone] Care Team Providers Care Armhole Baster Hand Name Role Phone Jag Kovacs MD Primary Care Provider Reason for Visit * Reason Onset Date Comments Advice 08/01/2024 Encounter Details Date Type Department Care Team (Late st Contact Info) Description 08/01/2024 Telephone [facility] [address] [place] [address] Jag Kovacs MD [address] [place] [address] Advice Allergies Active Allergy Reactions Criticality Noted Date Comments Diphenhydramine 09/03/2018 Epinephrine Other (Please comment) 07/03/2023 Propranolol Hcl 09/29/2010 "TIA" - like reactions Lisinopril Cough 08/04/2008 Mepivacaine Hcl 06/30/2008 With epi: whole face sagged Simvastatin 12/25/2012 Myalgia-nl CK documented as of this encounter (statuses as of 08/01/2024) Medications Medication Sig Dispensed Refills Start Date [...] as of this encounter (statuses as of 08/01/2024) Active Problems Problem Noted Date Diagnosed Date [...] as of this encounter (statuses as of 08/01/2024) Resolved Problems Problem Noted Date Diagnosed Date [...] nuclear stress test 05/08/2016 06/12/2017 Overview: 05/04-at [place] card++++ B12 deficiency 08/12/2015 06/12/2017 Overview: b12-231, nm mma--st po 500mcg 08/03 Balance problem 08/06/2015 06/12/2017 Overview: 06/02--neuro--eval-- PT,MRI>07/03Cerebral atrophy; continued extensive white matter signal abnormalities comp 2011>>nl tsh, b12 -211 Kidney disease, chronic, sta [...] 5 yrs-Mely. Noel scope 02/28/2010 Dr. Lynn [place] internal hemorrhoid, normal colon, repeat 5 years [...] as of this encounter (statuses as of 08/01/2024) Immunizations Name Administration Dates Next Due PPD [...] No 07/25/2024 Does the household have a [facility] source of income? (Household - for ages [...] encounter Miscellaneous Notes * Telephone Encounter - Karen Egan OSA - 08/01/2024 1:34 PM EDT 1st attempt. Lmom with [facility] to call to schedule hd fu appt. * Telephone Encounter - Giana Simeon OSA - 08/01/2024 8:42 AM EDT Unable to schedule patient for a hospital follow up appointment, due to provider availability. Please assist with scheduling this patient for an appointment to see their primary care physician within 3 to 5 days. Admission Date: @ADMITDT@ Diagnosis: Fall & heart slowed too much & passed out. Hit her head Discharge Date: 07.28.24 , pt missed her appt 07.31.24. Also tried to re-schedule her for the soonest appt & she declined. Patient's Appointment Preferences: n/a If the patient has been discharged, please contact the patient with the appointment. If the patient is still admitted, we will inform the patient of their appointment at the time of discharge. Thank you, MARIAN Cortés documented in this encounter Plan of Treatment Upcoming Encounters Date Type Department Care Team (Late st Contact Info) Description 08/04/2024 2:45 PM EDT Appointment Radiology, [place] [address] [facility] [place] [phone] 08/06/2024 2:20 PM EDT Anticoagulation Pharmacy, [place] [address] [place] [phone] Pharmacist1, [facility] [place] [address] [place] [address] 08/21/2024 1:30 PM EDT Office Visit Cardiology, [place] [address] [place] [address] Melvina Mensah CRNP [address] [place] [address] 08/28/2024 6:00 PM EDT Office Visit Family [facility], [place] [address] [facility] [place] [phone] Jag Kovacs MD 21 [place] [address] 09/11/2024 2:00 PM EDT Office Visit Podiatry, [facility] [address] [place] [address] Azul Nye DPM [address] [place] [address] Scheduled Procedures Name Priority Associated Diagnoses Date/Ti [...] Advance Directives occurred with: Family Care Teams Armhole Baster Hand Relationship Specialty Start Date End Date Jag Kovacs MD [address] [place] [address] PCP - General Family Medicine 08/05/21 documented as of this encounter
--- OUTSIDE RECORDS SUMMARY | 2024-08-21 14:06 | External Medical Summary | Summary of Care ---
Author Name Unknown Organization [facility] Address [address] [place] [address] Phone [phone] Care Team Providers Care Mechanical Inspector Name Role Phone Jag Kovacs MD Primary Care Provider Encounter Details Date Type Department Care Team (Late st Contact Info) Description 08/05/2024 11:30 AM EDT Scheduled Telephone Care Coordination and Integration [address] [place] [address] Cathy Brannon, [facility] [address] [place] [address] Allergies Active Allergy Reactions Criticality [...] nuclear stress test 05/08/2016 06/12/2017 Overview: 05/04-at [place] card++++ B12 deficiency 08/12/2015 06/12/2017 Overview: b12-231, [...] 5 yrs-Mely. C scope 02/28/2010 Dr. Lynn, [place] internal hemorrhoid, normal colon, repeat 5 years [...] No 08/05/2024 Does the household have a [facility] source of income? (Household - for [...] Progress Notes * Cathy Brannon, [facility] Glass Mechanic - 08/05/2024 12:34 PM EDT Telemedicine visit: No [facility] Glass Mechanic (ZENY) documentation: [facility] outbound call Finished antibiotic Denies symptoms of UTI Denies Falls Denies SOB Denies Chest pains Fatigued Today extremely fatigued Denies fever /chills Denies swelling Concerns with falling backwards Cathy Brannon [facility] Community Health Worker Call or Text- [phone] documented in this encounter Plan of Treatment Upcoming Encounters Date Type Department Care Team (Late st Contact Info) Description 08/06/2024 11:00 AM EDT Office Visit [facility] [address] [place] [address] Jag Kovacs MD 21 [facility] [address] 08/06/2024 2:20 PM EDT Anticoagulation Pharmacy, [place] [address] [place] [address] Pharmacist1, [facility] [place] [address] [place] [address] 08/12/2024 10:15 AM EDT Scheduled Telephone Care Coordination and Integration [address] [place] [address] Cathy Brannon [facility] [place] [address] 08/19/2024 8:30 AM EDT Scheduled Telephone Care Coordination and Integration [address] [place] [address] Cathy Brannon [facility] [address] [place] [address] 08/21/2024 1:30 PM EDT Office Visit Cardiology, [place] [address] [place] [address] Melvina Mensah CRNP [address] [place] [address] 08/26/2024 8:30 AM EDT Scheduled Telephone Care Coordination and Integration [address] [place] [address] Cathy Brannon, [facility] Glass Mechanic [address] [place] [address] 08/28/2024 6:00 PM EDT Office Visit Family [facility], [place] [address] [place] [phone] Jag Kovacs MD [address] [place] [address] 09/11/2024 2:00 PM EDT Office Visit Podiatry, [facility] [address] [place] [address] Azul Nye DPM [address] [place] [address] Scheduled Procedures Name Priority Associated Diagnoses Date/Ti [...] Advance Directives occurred with: Family Care Teams Mechanical Inspector Relationship Specialty Start Date End Date Jag Kovacs MD [address] [place] [address] PCP - General Family Medicine 08/05/21 documented as of this encounter
--- OUTSIDE RECORDS SUMMARY | 2024-08-21 14:06 | External Medical Summary | Summary of Care ---
Author Name Unknown Organization [facility] Address [address] [place] [address] Phone [phone] Care Team Providers Care Change Management Consultant Name Role Phone Jag Kovacs MD Primary Care Provider Reason for Visit * Reason Comments Dosage Adjustment Via Phone (anticoag Cl inic) Encounter Details Date Type Department Care Team (Latest Contact Info) Description 07/30/2024 5:10 PM EDT Anticoagulation Pharmacy, [place] [address] [place] [address] Pharmacist1, [facility] [place] [address] [place] [address] [address] Anticoagulation management encounter*; Hemiplegia, post-stroke (HCC); Paroxysmal atrial fibrillation (HCC) Allergies Active Allergy Reactions Criticality Noted Date Comments Diphenhydramine 09/03/2018 Epinephrine Other (Please comment) 07/03/2023 Propranolol Hcl 09/29/2010 "TIA" - like reactions Lisinopril Cough 08/04/2008 Mepivacaine Hcl 06/30/2008 With epi: whole face sagged Simvastatin 12/25/2012 Myalgia-nl CK documented as of this encounter (statuses as of 07/30/2024) Medications Medication Sig Dispensed Refills Start Date [...] as of this encounter (statuses as of 07/30/2024) Active Problems Problem Noted Date Diagnosed Date [...] as of this encounter (statuses as of 07/30/2024) Resolved Problems Problem Noted Date Diagnosed Date [...] nuclear stress test 05/08/2016 06/12/2017 Overview: 05/04-at [place] card++++ B12 deficiency 08/12/2015 06/12/2017 Overview: b12-231, [...] 5 yrs-Mely. C scope 02/28/2010 Dr. Lynn, [place] internal hemorrhoid, normal colon, repeat 5 years [...] as of this encounter (statuses as of 07/30/2024) Immunizations Name Administration Dates Next Due PPD [...] this encounter Progress Notes * Jose Martin Castellon RPh - 07/30/2024 3:28 PM EDT Images from the original note were not included. Medication Therapy Disease Management - Anticoagulation Patient: Alka Lawson | : 1940 Patient Phone Numbers Spoke to patient. Discharged home from [place]. Recent fall and admitted to [facility]. Provided with updated dosing schedule and updated Coag Tracker: Warfarin Dosing: Scheduled for repeat INR 08/06 Jose Martin Castellon RPh Clinical Pharmacist 07/30/2024, 3:28 PM documented in this encounter Plan of Treatment Upcoming Encounters Date Type Department Care Team (Late st Contact Info) Description 07/31/2024 5:00 PM EDT Office Visit Family [facility], [place] [address] [phone] Jag Kovacs MD [address] [address] 08/04/2024 2:45 PM EDT Appointment Radiology, [place] [address] [address] 08/06/2024 2:20 PM EDT Anticoagulation Pharmacy, [place] [address] [place] [address] [address] Pharmacist1, [facility] [place] [address] [place] [address] [address] 08/21/2024 1:30 PM EDT Office [address]iology, [address] [address] Melvina Mensah CRNP [address] [place] [address] 08/28/2024 6:00 PM EDT Office Visit [facility] [address] [facility] [place] [phone] Jag [facility]ovacs MD [facility] [address] 09/11/2024 2:00 PM EDT Office Visit Podiatry, [facility] [address] [place] [address] Azul Nye DPM [address] [facility] [place] [address] Scheduled Procedures Name Priority Associated Diagnoses Date/Ti [...] as of this encounter Visit Diagnoses Diagnosis Anticoagulation management [...] Advance Directives occurred with: Family Care Teams Change Management Consultant Relationship Specialty Start Date End Date Jag Kovacs MD [address] [address] PCP - General Family Medicine 08/05/21 documented as of this encounter
--- OUTSIDE RECORDS SUMMARY | 2024-08-21 14:06 | External Medical Summary | Summary of Care ---
Author Name Unknown Organization [facility] Address [address] [place] [address] Phone [phone] Care Team Providers Care Painting Technician Name Role Phone Jag Kovacs MD Primary Care Provider Encounter Details Date Type Department Care Team (Late st Contact Info) Description 07/28/2024 Result Scan Unspecified Department <No scans attached> Allergies Active Allergy Reactions Criticality Noted Date Comments Diphenhydramine 09/03/2018 Epinephrine Other (Please comment) 07/03/2023 Propranolol Hcl 09/29/2010 "TIA" - like reactions Lisinopril Cough 08/04/2008 Mepivacaine Hcl 06/30/2008 With epi: whole face sagged Simvastatin 12/25/2012 Myalgia-nl CK documented as of this encounter (statuses as of 07/31/2024) Medications Medication Sig Dispensed Refills Start Date [...] as of this encounter (statuses as of 07/31/2024) Active Problems Problem Noted Date Diagnosed Date [...] as of this encounter (statuses as of 07/31/2024) Resolved Problems Problem Noted Date Diagnosed Date [...] nuclear stress test 05/08/2016 06/12/2017 Overview: 05/04-at [place] card++++ B12 deficiency 08/12/2015 06/12/2017 Overview: b12-231, [...] 5 yrs-Mely. C scope 02/28/2010 Dr. Lynn, [place] internal hemorrhoid, normal colon, repeat 5 years [...] as of this encounter (statuses as of 07/31/2024) Immunizations Name Administration Dates Next Due PPD [...] Description 07/31/2024 5:00 PM EDT Office Visit [facility] [address] [place] [phone] Jag [facility] [address] 08/04/2024 2:45 PM EDT Appointment Radiology, [address] [place] [address] 08/06/2024 2:20 PM EDT Anticoagulation Pharmacy, [place] [address] [place] [address] [phone] Pharmacist1, [facility] [address] [place] [address] [address] 08/21/2024 1:30 PM EDT Office Visit Cardiology[address] [place] [address] Melvina Mensah CRNP [address] [place] [address] 08/28/2024 6:00 PM EDT Office Visit [address] [place] [phone] Jag Kovacs MD 21 [facility] [place] [facility] [place] [address] 09/11/2024 2:00 PM EDT Office Visit Podiatry, [address] [place] [phone] Azul Nye DPM [address] [place] [address] Scheduled Procedures Name Priority Associated Diagnoses Date/Ti [...] Procedure Name Priority Date/Time Associated Diagnosis Comments CARDIOLOGY SCANNED RESULT 07/28/2024 documented in this encounter Results * CARDIOLOGY SCANNED RESULT (07/28/2024) 07/28/2024 No Physician Data Unknown OTHER documented in this encounter Additional Health Concerns [...] Advance Directives occurred with: Family Care Teams Painting Technician Relationship Specialty Start Date End Date Jag Kovacs MD [address] [address] PCP - General Family Medicine 08/05/21 documented as of this encounter
--- OUTSIDE RECORDS SUMMARY | 2024-08-21 14:07 | External Medical Summary | Summary of Care ---
Author Name Unknown Organization [facility] Address [address] [place] [address] Phone [phone] Care Team Providers Care Construction Sales Representative Name Role Phone Jag Kovacs MD Primary Care Provider Encounter Details Date Type Department Care Team (Late st Contact Info) Description 07/29/2024 Population Health External Data Unspecified Department Allergies Active Allergy Reactions Criticality Noted Date Comments Diphenhydramine 09/03/2018 Epinephrine Other (Please comment) 07/03/2023 Propranolol Hcl 09/29/2010 "TIA" - like reactions Lisinopril Cough 08/04/2008 Mepivacaine Hcl 06/30/2008 With epi: whole face sagged Simvastatin 12/25/2012 Myalgia-nl CK documented as of this encounter (statuses as of 07/29/2024) Medications Medication Sig Dispensed Refills Start Date [...] as of this encounter (statuses as of 07/29/2024) Active Problems Problem Noted Date Diagnosed Date [...] less than 8.0% 09/28/2010 Overview: 07/22/13 Dr Opal: no ocular complications 07/18/12 Dr Joseph: no ocular complications 05/28/12 DM Self Mgmt: Diet/Exercise--Kelli- 07/05/2009 FBS 159, A1C 6.4 ICD-10 update of inactive term documented as of this encounter (statuses as of 07/29/2024) Resolved Problems Problem Noted Date Diagnosed Date [...] nuclear stress test 05/08/2016 06/12/2017 Overview: 05/04-at [place] card++++ B12 deficiency 08/12/2015 06/12/2017 Overview: b12-231, [...] prom EH--rpt 5 yrs-Mely. No[place] scope 02/28/2010 [place] internal hemorrhoid, normal colon, repeat 5 years [...] as of this encounter (statuses as of 07/29/2024) Immunizations Name Administration Dates Next Due PPD [...] No 07/25/2024 Does the household have a [facility] medical center[facility] source of income? (Household - for ages [...] Care Team (Late st Contact Info) Description 07/30/2024 5:10 PM EDT Anticoagulation Pharmacy, [place] [address] [place] [address] [address] Pharmacist1, [facility] [place] [address] [place] [address] [address] 07/31/2024 5:00 PM EDT Office Visit [facility] [address] [place] [phone] Jag Kovacs MD [address] [place], [place] [phone] 08/04/2024 2:45 PM EDT Appointment Radiology[address] [address] 08/21/2024 1:30 PM EDT [facility] [address] [place] [address] Melvina Mensah CRNP [address] [facility] [address] 08/28/2024 6:00 PM EDT Office Visit [facility] [address] [place] [phone] Jag Kovacs MD [address] [place] [address] 09/11/2024 2:00 PM EDT Office Visit Podiatry, [address] [address] Azul Nye DPM [address] [place] [address] Scheduled Procedures Name Priority Associated Diagnoses Date/Ti [...] Not on filedocumented as of this encounter Advance Directives * [...] Advance Directives occurred with: Family Care Teams Construction Sales Representative Relationship Specialty Start Date End Date Jag Kovacs MD [address] [address] PCP - General Family Medicine 08/05/21 documented as of this encounter
--- OUTSIDE RECORDS SUMMARY | 2024-08-21 14:07 | External Medical Summary ---
Author Name Unknown Address Unknown Organization : Laboratory Report Ordering Provider Test Date Status ELIZA HICKS 07/28/2024 11:33:25 Final Observation Date Value Abnormality Reference (Units ) Status Glucose Point of Care 07/28/2024 11:33:25 213 Above high normal 70-120 (mg/dL) Final Performing Location
--- OUTSIDE RECORDS SUMMARY | 2024-08-21 14:07 | External Medical Summary | Summary of Care ---
Author Name Unknown Organization [facility] Address [address] [place] [address] Phone [phone] Care Team Providers Care Marketing Production Manager Name Role Phone Jag Kovacs MD Primary Care Provider Encounter Details Date Type Department Care Team (Late st Contact Info) Description 07/28/2024 Population Health External Data Unspecified Department Allergies Active Allergy Reactions Criticality Noted Date Comments Diphenhydramine 09/03/2018 Epinephrine Other (Please comment) 07/03/2023 Propranolol Hcl 09/29/2010 "TIA" - like reactions Lisinopril Cough 08/04/2008 Mepivacaine Hcl 06/30/2008 With epi: whole face sagged Simvastatin 12/25/2012 Myalgia-nl CK documented as of this encounter (statuses as of 07/28/2024) Medications Medication Sig Dispensed Refills Start Date End Date Status PENELOPE MORENO MISCIndications:DM type 2, goal A1c below 7 use as directed up to 4 times per day 100 Each 11 07/09/2013 Suspended Additional Information Patient not taking.Informant: Patient, Reported on 07/27/2024 Cyanocobalamin (B-12) 1000 MCG TABS Take 1 Tab by mouth daily. 30 Tab 5 08/18/2019 Suspended Additional Information zoster vac recomb adjuvanted (SHINGRIX) 50 MCG/0.5ML injectionIndication s:Need for vaccination for zoster Inject 0.5 mL into a large muscle now and repeat dose in 60 to 180 days 1 Each 1 06/25/2020 Suspended Additional Information Vitamin D3 25 MCG (1000 UT) Oral Capsule Take 1 Capsule by mouth once. Suspended Atorvastatin Calcium 80 MG Oral Tablet (Lipitor) Take 1 Tablet by mouth every afternoon. 30 Tablet 12/01/2022 Suspended Additional Information Losartan Potassium 25 MG Oral Tablet (Cozaar) Take 1 Tablet by mouth in the morning. 30 Tablet 12/07/2022 Suspended Additional Information Acetaminophen 325 MG Oral Tablet (Tylenol) Take 2 Tablets by mouth every 8 hours as needed for Pain, Moderate. Suspended Hydrocortisone 1 % External Cream Apply topically to affected area daily as needed for Hemorrhoids. Apply to hemorhoids 12/30/2022 Suspended Metoprolol Tartrate 50 MG Oral Tablet (Lopressor) Take 0.5 Tablets by mouth in the morning and 0.5 Tablets before bedtime. 02/02/2023 Suspended Clotrimazole-Betame thasone 1-0.05 % External Cream Apply topically to affected area twice daily. 45 g 2 04/10/2023 Suspended Additional Information Patient not taking.Reported on 07/02/2024 OneTouch Ultra In Vitro Strip (Glucose Blood)Indications:T ype 2 diabetes mellitus with hemoglobin A1c goal of less than 8.0% (HCC) Use as directed to check blood sugar once a day. 100 Strip 3 06/15/2023 Suspended Additional Information Patient not taking.Reported on 07/27/2024 Allopurinol 100 MG Oral Tablet (Zyloprim)Indicatio ns:Gouty arthropathy Take 2 tablets by mouth once daily 180 Tablet 1 11/23/2023 Suspended Additional Information glipiZIDE ER 10 MG Oral Tablet Extended Release 24 Hour (Glucotrol XL)Indications:Type 2 diabetes mellitus with hemoglobin A1c goal of less than 7.0% (HCC) TAKE 1 TABLET BY MOUTH ONCE DAILY 30 MINUTES BEFORE A MEAL 90 Tablet 1 11/23/2023 Suspended Additional Information hydroCHLOROthiazide 12.5 MG Oral Capsule (Hydrodiuril)Indica tions:HTN, goal below 140/80 Take 1 capsule by mouth once daily 90 Capsule 2 12/24/2023 Suspended Additional Information Gabapentin 300 MG Oral Capsule (Neurontin)Indicati ons:Post-herpetic polyneuropathy Take 2 Capsules by mouth in the morning and 2 Capsules before bedtime. 360 Capsule 3 02/07/2024 Suspended Additional Information Omeprazole 40 MG Oral Capsule Delayed Release (PriLOSEC)Indicatio ns:History of esophageal stricture,Gastroeso phageal reflux disease, unspecified whether esophagitis present Take 1 Capsule by mouth at bedtime. 90 Capsule 3 02/07/2024 Suspended Additional Information Synthroid 125 MCG Oral TabletIndications:A cquired hypothyroidism TAKE 1 TABLET BY MOUTH ONCE DAILY AT LEAST 30 MINUTES PRIOR TO BREAKFAST OR OTHER MEDICATIONS 90 Tablet 1 02/13/2024 Suspended Additional Information Docusate Sodium 100 MG Oral Capsule (Colace) Take 1 Capsule by mouth in the morning and 1 Capsule before bedtime. 30 Capsule 06/13/2024 Suspended Additional Information Patient not taking.Reported on 07/27/2024 Sennosides 8.6 MG Oral Tablet (Senokot) Take 2 Tablets by mouth in the morning. 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 With meals.. Do not start before June 14, 2024. 180 Tablet 3 06/14/2024 Suspended Additional Information Bisacodyl 10 MG Rectal Suppository (Dulcolax) Administer 1 Suppository into the rectum in the morning. Suspended Potassium Chloride ER 10 MEQ Oral Tablet Extended Release Take 1 Tablet by mouth. In the morning. 07/17/2024 Suspended documented as of this encounter (statuses as of 07/28/2024) Active Problems Problem Noted Date Diagnosed Date Fall at home 07/26/2024 Complicated UTI (urinary [...] as of this encounter (statuses as of 07/28/2024) Resolved Problems Problem Noted Date Diagnosed Date [...] nuclear stress test 05/08/2016 06/12/2017 Overview: 05/04-at [place] card++++ B12 deficiency 08/12/2015 06/12/2017 Overview: b12-231, [...] 5 yrs-Mely. C scope 02/28/2010 Dr. Lynn, [place] internal hemorrhoid, normal colon, repeat 5 years [...] as of this encounter (statuses as of 07/28/2024) Immunizations Name Administration Dates Next Due PPD [...] Description 07/30/2024 5:10 PM EDT Anticoagulation Pharmacy, [place] [address] [place] [address] [address] Pharmacist1, [facility] [place] [address] [place] [address] [address] 08/04/2024 2:45 PM EDT Appointment Radiology, [address] [place] [address] 08/28/2024 6:00 PM EDT Office Visit [facility] [address] [facility] [phone] Jag Kovacs MD 21 [facility] [place] [address] 09/11/2024 2:00 PM EDT Office Visit Podiatry, [facility] 400 [facility] [place] [address] Azul Nye DPM [facility] [address] Scheduled Procedures Name Priority Associated Diagnoses Date/Ti [...] Activated Date Inactivated Comments 07/26/2024 11:28 PM This order ref lects the patients wishes and were consensually agreed [...] Advance Directives occurred with: Family Care Teams Marketing Production Manager Relationship Specialty Start Date End Date Jag Kovacs MD [address] [address] PCP - General Family Medicine 08/05/21 documented as of this encounter
--- OUTSIDE RECORDS SUMMARY | 2024-08-21 14:07 | External Medical Summary | Summary of Care ---
Author Name Unknown Organization [facility] Address [address] [place] [address] Phone [phone] Care Team Providers Care [employer] Press Tender Name Role Phone Jag Kovacs MD Primary Care Provider Reason for Referral * Evaluate & Treat - Unlimited Visits (Within 3 days (urgent)) - Authorized Specialty Diagnoses / Procedures Referred By Bernard jo Referred To Contact Physical Therapy / Physical Medicine And Rehab Diagnoses Generalized weakness Fall in home, initial encounter Hakan Bose MD [address] [facility] [place] [address] Referral ID Status Reason Start Date Expiration Date Visits Requested Visits Authorized [id number] Authorized Specialty Services Required 07/28/2024 [id number] Question Answer Referral Priority Within 3 days (urgent) Where should this appointment be scheduled? [facility] Comments Discharge Order Reason for Visit * Reason Comments Fall * Auth/Cert Specialty Diagnoses / Procedures Referred By Bernard jo Referred To Contact [facility] [address] [place] [address] Phone: [phone] Emergency Medicine [address] [address] Referral ID Status Reason Start Date Expiration Date Visits Re quested Visits Authorized [id number] Encounter Details Date Type Department Care Team (Latest Contact Info) Description 07/26/2024 6:50 PM EDT - 07/28/2024 4:33 PM EDT Hospital Encounter 5A [facility] 5th Floor [address] [place] [address] Renato Richardson, [address] [place] [address] Devon Hudson MD [address] [facility] Hospitalist Services [place], [place] [id number] Hakan Bose MD [address] [facility] [place], [place] [id number] Various: KRAVS,EKG Discharge Disposition: Home - Self Care Allergies Active Allergy Reactions Criticality Noted Date [...] Tab by mouth daily. 30 Tab 5 9 Active zoster vac recomb adjuvanted (SHINGRIX) 50 MCG/0.5ML injectionIndication s:Need for vaccination for zoster Inject 0.5 mL into a large muscle now and repeat dose in 60 to 180 days 1 Each 1 0 Active Vitamin D3 25 MCG (1000 UT) Oral Capsule Take 1 Capsule by mouth once. Active Atorvastatin Calcium 80 MG Oral Tablet (Lipitor) Take 1 Tablet by mouth every afternoon. 30 Tablet 3 Active Losartan Potassium 25 MG Oral Tablet (Cozaar) Take 1 Tablet by mouth in the morning. 30 Tablet 3 Active Acetaminophen 325 MG Oral Tablet (Tylenol) Take 2 Tablets by mouth every 8 hours as needed for Pain, Moderate. Active Hydrocortisone 1 % External Cream Apply topically to affected area daily as needed for Hemorrhoids. Apply to hemorhoids 3 Active Allopurinol 100 MG Oral Tablet (Zyloprim)Indicatio ns:Gouty arthropathy Take 2 tablets by mouth once daily 180 Tablet 1 4 Active glipiZIDE ER 10 MG Oral Tablet Extended Release 24 Hour (Glucotrol XL)Indications:Type 2 diabetes mellitus with hemoglobin A1c goal of less than 7.0% (HCC) TAKE 1 TABLET BY MOUTH ONCE DAILY 30 MINUTES BEFORE A MEAL 90 Tablet 1 4 Active hydroCHLOROthiazide 12.5 MG Oral Capsule (Hydrodiuril)Indica tions:HTN, goal below 140/80 Take 1 capsule by mouth once daily 90 Capsule 2 4 Active Gabapentin 300 MG Oral Capsule (Neurontin)Indicati ons:Post-herpetic polyneuropathy Take 2 Capsules by mouth in the morning and 2 Capsules before bedtime. 360 Capsule 3 4 Active Omeprazole 40 MG Oral Capsule Delayed Release (PriLOSEC)Indicatio ns:History of esophageal stricture,Gastroeso phageal reflux disease, unspecified whether esophagitis present Take 1 Capsule by mouth at bedtime. 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 With meals.. Do not start before June 14, 2024. 180 Tablet 3 4 Active Bisacodyl 10 MG Rectal Suppository (Dulcolax) Administer 1 Suppository into the rectum in the morning. Active Potassium Chloride ER 10 MEQ Oral Tablet Extended Release Take 1 Tablet by mouth. In the morning. 4 Active Warfarin Sodium 3 MG Oral Tablet (Coumadin) Take 1 Tablet by mouth in the morning. 4 Active Cefdinir 300 MG Oral Capsule (Omnicef) Take 1 Capsule by mouth in the morning and 1 Capsule before bedtime. 8 Capsule 4 Active Metoprolol Tartrate 25 MG Oral Tablet (Lopressor) Take 0.5 Tablets by mouth in the morning and 0.5 Tablets before bedtime. 30 Tablet 4 Active ONETOUCH NAA MORENO MISCIndications:DM type 2, goal A1c below 7 use as directed up to 4 times per day 100 Each 11 3 07/28/20 24 Discontinued Metoprolol Tartrate 50 MG Oral Tablet (Lopressor) Take 0.5 Tablets by mouth in the morning and 0.5 Tablets before bedtime. 3 07/28/20 24 Discontinued Clotrimazole-Betame thasone 1-0.05 % External Cream Apply topically to affected area twice daily. 45 g 2 3 07/28/20 24 Discontinued OneTouch Ultra In Vitro Strip (Glucose Blood)Indications:T ype 2 diabetes mellitus with hemoglobin A1c goal of less than 8.0% ([facility]) Use as directed to check blood sugar once a day. 100 Strip 3 3 07/28/20 24 Discontinued Cephalexin 500 MG Oral Capsule (Keflex) Take 1 Capsule by mouth in the morning and 1 Capsule before bedtime. Do all this for 1 day. 2 Capsule 4 07/28/20 24 Discontinued Docusate Sodium 100 MG Oral Capsule (Colace) Take 1 Capsule by mouth in the morning and 1 Capsule before bedtime. 30 Capsule 4 07/28/20 24 Discontinued Sennosides 8.6 MG Oral Tablet (Senokot) Take 2 Tablets by mouth in the morning. 30 Tablet 4 07/28/20 24 Discontinued Heparin Sodium (Porcine) PF 5000 UNIT/0.5ML Injection Solution Inject 0.5 mL under the skin in the morning and 0.5 mL at noon and 0.5 mL before bedtime. Do all this for 4 days. 6 mL 4 07/28/20 24 Discontinued Enoxaparin Sodium 40 MG/0.4ML Injection Solution Prefilled Syringe (Lovenox) Inject 40 mg under the skin in the morning and 40 mg before bedtime. Do all this for 9 days. Do not start before June 18, 2024. 7.2 mL 4 07/28/20 24 Discontinued Cefdinir 300 MG Oral Capsule (Omnicef) Take 1 Capsule by mouth in the morning and 1 Capsule before bedtime. Do all this for 4 days. 8 Capsule 4 07/28/20 24 Discontinued Metoprolol Tartrate 25 MG Oral Tablet (Lopressor) Take 0.5 Tablets by mouth in the morning and 0.5 Tablets before bedtime. 60 Tablet 4 07/28/20 24 Discontinued Cefdinir 300 MG Oral Capsule (Omnicef) Take 1 Capsule by mouth in the morning and 1 Capsule before bedtime. 8 Capsule 4 07/28/20 24 Discontinued documented as of this encounter (statuses as [...] nuclear stress test 05/08/2016 06/12/2017 Overview: 05/04-at [facility] card++++ B12 deficiency 08/12/2015 06/12/2017 Overview: b12-231, [...] 5 yrs-Mely. Noel scope 02/28/2010 Dr. Lynn, [place] internal hemorrhoid, normal colon, repeat 5 years [...] Sign Reading Time Taken Comments Blood Pressure 129/82 07/28/2024 2:57 PM EDT Pulse 73 07/28/2024 3:36 PM EDT Temperature 36.9 C (98.4 F) 07/28/2024 2:57 PM ED T Respiratory Rate 16 07/28/2024 2:57 PM EDT Oxygen Saturation 93% 07/28/2024 2:57 PM EDT Inhaled Oxygen Concentration - - Weight 81.3 kg (179 lb 3.2 oz) 07/27/2024 9:46 A M EDT Height 147.3 cm (4' 10") 07/27/2024 9:46 AM EDT Body Mass Index 37.45 07/27/2024 9:46 AM EDT documented in this encounter Functional [...] No 07/27/2024 documented as of this encounter Discharge Instructions * Discharge Instr - AVS* Hakan Bose MD - 07/28/2024 10:55 AM EDT Discharge Date: 07/28/2024 Brief summary of inpatient care: Alka Lawson was admitted to [facility] on 07/26/2024 with Fall and ambulatory dysfunction The primary diagnosis at discharge was Ambulatory dysfunction. Second degree AV block. Alka Lawson is being discharged to Inpatient rehab The Hospital Medicine physician(s) at the time of discharge included: Hakan Bose MD To reach this Provider Sunday through Sunday (8:00 AM to 4:30 PM) for any questions or test results: Call [phone] For after-hours concerns: Call [phone] and have your provider paged, or the provider injection molding machine offbearer for the Department of [facility] Medicine paged. Inpatient test results pending: none Operations & Procedures: none Code Status: Full Code Advance Directive Documentation: Advance Directive Does the Patient have an Advance Directive? No Diet: Heart healthy diet Activity: As tolerated Alka should continue the following therapies: Physical Therapy and Occupational Therapy None Additional Precautions: none Isolation Status: None Mentation at Discharge: diminished Future Studies Required: none Respiratory Support at Discharge: none PRIMARY CARE PROVIDER: PCP: Jag Kovacs MD [address] [facility] [id number] (office) [phone] (fax) Special Instructions: - Continue PT/ OT at home - Continue coumadin. Goal INR 2-3 - Decreased Metoprolol dose to 12.5 mg BID - Complete course of antibiotics as prescribed for UTI - Follow up with Cardiology in 2 weeks Please have the patient return to the Emergency Department for any of the following: chest pain, chest pressure, chest tightness, difficulty breathing The patient should not smoke or use tobacco products in any way! * Pharmacy Instr - AVS* Teena Rodgers, [facility] - 07/27/2024 2:37 PM EDT Warfarin dosing instructions for after discharge: You should have a prescription for Warfarin 3 mg tablets. Please take the following doses of warfarin by mouth after Discharge: Date Dose using warfarin 3 mg Tablets 07/28 Take 2 tablets = 6 mg 07/29 Take 2 tablets = 6 mg 07/30 Take 1 tablets = 3 mg 07/31 Take 2 tablets = 6 mg 08/01 Take 1 tablets = 3 mg Your primary care physician (PCP) will provide you with further dosing and appointment instructions. If you have any questions regarding your anticoagulation therapy, please Contact Physician/Provider.. Please share the following information with your provider: You were continued on WARFARIN for Indication for Anticoagulation: Atrial fibrillation/flutter. This is an Existing diagnosis. Your Target INR: 2.0-3.0(Prevention of systemic embolism) . Your Anticipated Duration of Therapy: Lifetime . Because you have been placed on a blood thinner, your therapy will need to be monitored on a regular basis. You will have your Anticoagulation Managed By: PCP . While you were in the hospital, you medication doses received and your corresponding labs were: INR Date/Time Value Ref Range Status 07/27/2024 01:24 PM 1.7 (H) 0.8 - 1.2 Final 07/26/2024 07:03 PM 1.7 (H) 0.8 - 1.2 Final HGB Date/Time Value Ref Range Status 07/27/2024 07:03 AM 10.1 (L) 12.0 - 15.3 g/dL Final HCT Date/Time Value Ref Range Status 07/27/2024 07:03 AM 30.4 (L) 36.0 - 45.2 % Final PLT Date/Time Value Ref Range Status 07/27/2024 07:03 AM 216 140 - 400 K/uL Final Warfarin Administrations (last 720 hours) None documented in this encounter Progress Notes * JermaineTien morales [facility] - 07/28/2024 9:49 AM EDT Images from the original note were not included. PHARMACY ANTICOAGULATION WARFARIN (Coumadin) Assessment [address] [address] Name: Alka Lawson Location: [facility] [id number] Date: 07/28/2024 Time: 9:49 AM Alka Lawson is a 84 year old female admitted for Complicated UTI (urinary tract infection). Pharmacy was consulted for warfarin dosing and monitoring. Anticoagulation Therapy Goals Indication for Anticoagulation: Atrial fibrillation/flutter Anticipated Duration of Therapy: Lifetime Target INR: 2.0-3.0(Prevention of systemic embolism) Risk factors for anticoagulation therapy: Age>65, Hypertension Other please comment: Managed by SNF Prior to Admission Management Anticoagulation Managed By: PCP Tablet Size/Strength: 3 mg Anticoagulation Regimen: 2.5 mg MWF; 5 mg AOD (ACC dosing) Anticoagulation Episode Summary Current INR goal: 2.0-3.0 TTR: 58.2% (11.2 mo) Next INR check: 06/13/2024 INR from last check: Most recent INR: 1.5 (07/28/2024) Weekly max warfarin dose: Target end date: Indefinite INR check location: Preferred lab: Send INR reminders to: Indications 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.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] Paroxysmal atrial fibrillation (HCC) [I48.0] Comments: Anticoagulation Care Providers Provider Role Specialty Phone number Jag Kovacs MD Referring Family Medicine [phone] Labs INR Date/Time Value Ref Range Status 07/28/2024 05:42 AM 1.5 (H) 0.8 - 1.2 Final 07/27/2024 01:24 PM 1.7 (H) 0.8 - 1.2 Final 07/26/2024 07:03 PM 1.7 (H) 0.8 - 1.2 Final HGB Date/Time Value Ref Range Status 07/27/2024 07:03 AM 10.1 (L) 12.0 - 15.3 g/dL Final HCT Date/Time Value Ref Range Status 07/27/2024 07:03 AM 30.4 (L) 36.0 - 45.2 % Final PLT Date/Time Value Ref Range Status 07/27/2024 07:03 AM 216 140 - 400 K/uL Final Objective Warfarin Administrations (last 720 hours) Date/Time Action Medication Dose 07/27/24 2134 Given Warfarin Sodium (Coumadin) tab 8 mg 8 mg Assessment & Plan Assessment Dietary Assessment: Normal/expected PO intake Today's INR : Subtherapeutic Does the patient have any medication interactions: No Please comment: Omeprazole, Allopurinol Are there bleeding concerns with the patient: No Does the patient have any upcoming procedures: No Plan Warfarin Plan: Give Warfarin Specify Warfarin Dose: 8 mg Is the patient receiving a Bridging Agent: No Warfarin Patient Education : Not needed Reason Education Not Needed: [facility] Tien Neal RPh * Hakan Bose MD - 07/28/2024 9:42 AM EDT Images from the original note were not included. [facility] [id number]/W INTERVAL HISTORY: 84 yo Female with Paroxysmal A.fib, Left MCA Stroke in 11/2022 currently on coumadin, Hypothyroidism, NIDDM, HTN/ HLD, NPH recently admitted to [facility] 06/10 to 06/13 for TBI with Intraventricular bleed andwas discharged to [facility] presents today with fall at home. Patient stood up from the dinning table and then fell backwards. CT head: No acute Intracranial bleed. UA+ EKnd degree AV block with Incomplete LBBB - Not a good historian. Denies any chest pain/ dizziness/ sob. Haven't ambulated yet. Using bedsidecommode. Objective Physical Exam Most Recent Vital Signs: BP: 105 mmHg/76 mmHg (07/28/24 0737) Pulse: 71 (07/28/24 0737) Resp: 16 (07/28/24736) Temp: 36.28 C (07/28/24736) Temp Summary: Temp Min: 36.2 C (97.2 F) Max: 37.1 C (98.8 F) SpO2: 94 % (07/28/24736) O2 flow rate: Supplemental O2 Delivery: Room Air, None (07/28/24736) Constitutional: well nourished, well developed, no acute distress HEENT: normocephalic, atraumatic; no masses, tenderness, or adenopathy CV: sinus rhythm, no murmur, gallops or rub appreciated. Chest: normal respiratory effort, lungs clear to auscultation and percussion Abdomen: Soft, bowel sounds normal, no masses or organomegaly. Extremities: no edema, no cyanosis, normal ROM, no tenderness to palpation or ROM Skin: warm, dry, intact. Neuro: AO 1-2. Moving all extremities. Confused Peripheral Line Left;Lower 22 Gauge (Active) Number of days: 2 STUDIES: Encounter Orders Labs and other studies reviewed with pertinent findings noted below: Latest Reference Range & Units 07/27/24 07:03 Sodium 135 - 146 mmol/L 141 Potassium 3.5 - 5.1 mmol/L 2.9 (L) Chloride 98 - 107 mmol/L 103 CO2 22 - 32 mmol/L 26 BUN 6 - 20 mg/dL 15 Creatinine 0.5 - 1.0 mg/dL 0.7 Estimated Glomerular Filtration Rate >=60 mL/min 82 Anion Gap 7 - 15 mmol/L 12 Glucose 70 - 120 mg/dL 116 Calcium 8.4 - 10.2 mg/dL 7.7 (L) CBC Rpt ! WBC 4.00 - 10.80 K/uL 9.97 RBC 3.85 - 5.15 M/uL 3.43 HGB 12.0 - 15.3 g/dL 10.1 (L) HCT 36.0 - 45.2 % 30.4 (L) MCV 81.5 - 97.5 fL 88.6 MCH 27.0 - 34.0 pg 29.4 MCHC 32.0 - 36.0 g/dL 33.2 RDW 11.5 - 15.5 % 16.4 PLT 140 - 400 K/uL 216 MPV 6.6 - 11.1 fL 10.4 (L): Data is abnormally low !: Data is abnormal Rpt: View report in Results Review for more information Assessment and Plan IMPRESSION : Principal Problem: Complicated UTI (urinary tract infection) Active Problems: Acquired hypothyroidism Type 2 diabetes mellitus with hemoglobin A1c goal of less than 8.0% (HCC) HTN, goal below 140/90 Gastroesophageal reflux disease with esophagitis Paroxysmal atrial fibrillation (HCC) Ambulatory dysfunction Hemiplegia, post-stroke (HCC) Fall at home Resolved Problems: * No resolved hospital problems. * DIFFERENTIAL AND PLAN: 84 yo Female with Paroxysmal A.fib, Left MCA Stroke in 11/2022 currently on coumadin, Hypothyroidism, NIDDM, HTN/ HLD, NPH recently admitted to [facility] 06/10 to 06/13 for TBI with Intraventricular bleed andwas discharged to [facility] presents today with fall at home. Patient stood up from the dinning table and then fell backwards. CT head: No acute Intracranial bleed. UA+ EKnd degree AV block with Incomplete LBBB Continue telemetry Cardiology to evaluate pt today Patient UA always been positive in the last 2 years. Could be a colonization. Patients denies UTI symptoms but not a reliable historian. Cultures growing E.coli. Compete 5 days antibiotics Replace potassium PT/ OT/ CM consult. Patient lives in [facility]. Recently released from rehab section 2 weeks ago Spoke with pt's son and discussed about risks vs benefits of continuing anticoagulation and made decision to be continued on coumadin. Time spent: 35 Mins. More than half with patient and remaining time for reviewing labs, medial records, coordination of care with nurses and specialities. Rashid elements of the counseling and coordination of care included detail of treatment plan w/ pt and caregivers, content of pt and/or family discu ssions, rashid tests or procedures reviewed/ordered in med rec, outcomes of discussions with other healthcare providers PHARMACOLOGIC VTE PROPHYLAXIS: warfarin check daily dose (PHARMACIST MANAGED) CODE STATUS: Full Code EXPECTED DISCHARGE DATE: 07/28/2024 * Buddy Ralph, [facility] - 07/27/2024 2:31 PM EDT Images from the original note were not included. PHARMACY ANTICOAGULATION WARFARIN (Coumadin) Assessment [facility] [place] [address] Name: Alka Lawson Location: [facility] [id number]/W Date: 07/27/2024 Time: 2:31 PM Alka Lawson is a 84 year old female admitted for Complicated UTI (urinary tract infection). Pharmacy was consulted for warfarin dosing and monitoring. Anticoagulation Therapy Goals Indication for Anticoagulation: Atrial fibrillation/flutter Anticipated Duration of Therapy: Lifetime Target INR: 2.0-3.0(Prevention of systemic embolism) Risk factors for anticoagulation therapy: Age>65, Hypertension Other please comment: Managed by SNF Provider Prior to Admission Management Anticoagulation Managed By: PCP Tablet Size/Strength: 2.5 mg Anticoagulation Regimen: 2.5 mg Mon, Wed, Sun; 5 mg all other days (Has been held for months) Anticoagulation Episode Summary Current INR goal: 2.0-3.0 TTR: 57.8% (11.3 mo) Next INR check: 06/13/2024 INR from last check: Most recent INR: 1.7 (07/27/2024) Weekly max warfarin dose: Target end date: Indefinite INR check location: Preferred lab: Send INR reminders to: Indications 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] Paroxysmal atrial fibrillation (HCC) [I48.0] Comments: Anticoagulation Care Providers Provider Role Specialty Phone number Jag Kovacs MD Referring Family Medicine [phone] Labs INR Date/Time Value Ref Range Status 07/27/2024 01:24 PM 1.7 (H) 0.8 - 1.2 Final 07/26/2024 07:03 PM 1.7 (H) 0.8 - 1.2 Final HGB Date/Time Value Ref Range Status 07/27/2024 07:03 AM 10.1 (L) 12.0 - 15.3 g/dL Final HCT Date/Time Value Ref Range Status 07/27/2024 07:03 AM 30.4 (L) 36.0 - 45.2 % Final PLT Date/Time Value Ref Range Status 07/27/2024 07:03 AM 216 140 - 400 K/uL Final Objective Warfarin Administrations (last 720 hours) None Assessment & Plan Assessment Dietary Assessment: Minimal/decreased PO intake Today's INR : Subtherapeutic Does the patient have any medication interactions: Yes Please comment: Omeprazole, Allopurinol Are there bleeding concerns with the patient: No Does the patient have any upcoming procedures: No Plan Warfarin Plan: Give Warfarin Specify Warfarin Dose: Give 8mg by mouth tonight Is the patient receiving a Bridging Agent: No Warfarin Patient Education : Not needed Reason Education Not Needed: Followed by SNF Provider Buddy Ralph RPh * Hakan Bose MD - 07/27/2024 9:15 AM EDT Images from the original note were not included. [facility] 5A-5116/W INTERVAL HISTORY: 84 yo Female with Paroxysmal A.fib, Left MCA Stroke in 11/2022 currently on coumadin, Hypothyroidism, NIDDM, HTN/ HLD, NPH recently admitted to [facility] 06/10 to 06/13 for TBI with Intraventricular bleed andwas discharged to [facility] presents today with fall at home. Patient stood up from the dinning table and then fell backwards. CT head: No acute Intracranial bleed. UA+ EKnd degree AV block with Incomplete LBBB - Patient awake, alert and oriented to self. Couldn't tell hospital name and doesn't remember who she fell. Denies any pain now. Objective Physical Exam Most Recent Vital Signs: BP: 145 mmHg/91 mmHg (07/27/24711) Pulse: 92 (07/27/24711) Resp: 18 (07/27/24711) Temp: 37.39 C (07/27/24711) Temp Summary: Temp Min: 36.2 C (97.1 F) Max: 37.4 C (99.3 F) SpO2: 90 % (07/27/24711) O2 flow rate: Supplemental O2 Delivery: Room Air, None (07/27/24727) Constitutional: well nourished, well developed, no acute distress HEENT: normocephalic, atraumatic; no masses, tenderness, or adenopathy CV: sinus rhythm, no murmur, gallops or rub appreciated. Chest: normal respiratory effort, lungs clear to auscultation and percussion Abdomen: Soft, bowel sounds normal, no masses or organomegaly. Extremities: no edema, no cyanosis, normal ROM, no tenderness to palpation or ROM Skin: warm, dry, intact. Neuro: AO 1-2. Moving all extremities. Confused Peripheral Line Left;Lower 22 Gauge (Active) Number of days: 1 STUDIES: Encounter Orders Labs and other studies reviewed with pertinent findings noted below: Latest Reference Range & Units 07/27/24 07:03 Sodium 135 - 146 mmol/L 141 Potassium 3.5 - 5.1 mmol/L 2.9 (L) Chloride 98 - 107 mmol/L 103 CO2 22 - 32 mmol/L 26 BUN 6 - 20 mg/dL 15 Creatinine 0.5 - 1.0 mg/dL 0.7 Estimated Glomerular Filtration Rate >=60 mL/min 82 Anion Gap 7 - 15 mmol/L 12 Glucose 70 - 120 mg/dL 116 Calcium 8.4 - 10.2 mg/dL 7.7 (L) CBC Rpt ! WBC 4.00 - 10.80 K/uL 9.97 RBC 3.85 - 5.15 M/uL 3.43 HGB 12.0 - 15.3 g/dL 10.1 (L) HCT 36.0 - 45.2 % 30.4 (L) MCV 81.5 - 97.5 fL 88.6 MCH 27.0 - 34.0 pg 29.4 MCHC 32.0 - 36.0 g/dL 33.2 RDW 11.5 - 15.5 % 16.4 PLT 140 - 400 K/uL 216 MPV 6.6 - 11.1 fL 10.4 (L): Data is abnormally low !: Data is abnormal Rpt: View report in Results Review for more information Assessment and Plan IMPRESSION : Principal Problem: Complicated UTI (urinary tract infection) Active Problems: Acquired hypothyroidism Type 2 diabetes mellitus with hemoglobin A1c goal of less than 8.0% (HCC) HTN, goal below 140/90 Gastroesophageal reflux disease with esophagitis Paroxysmal atrial fibrillation (HCC) Ambulatory dysfunction Hemiplegia, post-stroke (HCC) Fall at home Resolved Problems: * No resolved hospital problems. * DIFFERENTIAL AND PLAN: 84 yo Female with Paroxysmal A.fib, Left MCA Stroke in 11/2022 currently on coumadin, Hypothyroidism, NIDDM, HTN/ HLD, NPH recently admitted to [facility] 06/10 to 7/26 for TBI with Intraventricular bleed andwas discharged to [facility] presents today with fall at home. Patient stood up from the dinning table and then fell backwards. CT head: No acute Intracranial bleed. UA+ EKnd degree AV block with Incomplete LBBB Continue telemetry Cardiology consult Patient UA always been positive in the last 2 years. Could be a colonization. Patients denies UTI symptoms but not a reliable historian Replace potassium PT/ OT/ CM consult. Patient lives in [facility]. Recently released from rehab section 2 weeks ago Spoke with pt's son and discussed about risks vs benefits of continuing anticoagulation. He would like to discuss with rest of family members before he comes up with decision. Patient has medical necessity for continued stays in hospital in view of Hypokalemia/ Second degreeblock needing cardiology evaluation. Upgrade to Inpatient Time spent: 35 Mins. More than half with patient and remaining time for reviewing labs, medial records, coordination of care with nurses and specialities. Rashid elements of the counseling and coordination of care included detail of treatment plan w/ pt and caregivers, content of pt and/or family discu ssions, rashid tests or procedures reviewed/ordered in med rec, outcomes of discussions with other healthcare providers PHARMACOLOGIC VTE PROPHYLAXIS: Enoxaparin CODE STATUS: Full Code EXPECTED DISCHARGE DATE: No information available documented in this encounter H&P Notes * Devon Hudson MD - 07/26/2024 11:39 PM EDT Images from the original note were not included. [facility] PRESENTING PROBLEM: fall at home HPI: This is an 84 yo woman with below pmh that includes dm2, htn, hld. She was previously here forL MCA stroke that resulted in right sided weakness; also her most recent admission was to [facility] for intracranial bleeding. This most recent admission was complicated by uti. She was discharged from rehab to home and today fell at home. She was brought to ED for evaluation as she is on coumadin. Patient has aphasia since her strokes and responds appropriately but very slowly. She uses a walker to get about the house and wears depends. She is unsure about recent weakness. No fever, chills or dyspnea. No nausea or vomiting. Otherwise, she was a difficult historian due to significant aphasia/dy sarthria but does answer questions with definite answers. Subjective Patient's past history, medications, and allergies were reviewed. Objective Physical Exam Most Recent Vital Signs: BP: 142 mmHg/72 mmHg (07/26/242299) Pulse: 89 (07/26/242299) Resp: 21 (07/26/242299) Temp: 36.72 C (07/26/241851) Temp Summary: Temp Min: 36.7 C (98.1 F) Max: 36.7 C (98.1 F) SpO2: 95 % (07/26/242299) O2 flow rate: Supplemental O2 Delivery: Room Air, None (07/26/241851) Constitutional: (+) chronically ill obese woman lying in bed. HEENT: normal: normocephalic, atraumatic; Eyes: sclera and conjunctiva normal Neck: supple CV: normal rate Chest: normal respiratory effort, lungs clear to auscultation anteriorly Abdomen: soft, bowel sounds normal, no tenderness Extremities: non-pitting edema Skin: warm, dry, intact: Neuro: alert and awake, oriented x2. Moves all extremities. STUDIES: Encounter Orders Labs and other studies reviewed with pertinent findings noted below: Results for orders placed or performed during the hospital encounter of 07/26/24 COMPREHENSIVE METABOLIC PANEL Result Value Ref Range BUN 21 (H) 6 - 20 mg/dL Creatinine 0.8 0.5 - 1.0 mg/dL Estimated Glomerular Filtration Rate 76 >=60 mL/min Sodium 140 135 - 146 mmol/L Potassium Chloride 100 98 - 107 mmol/L CO2 26 22 - 32 mmol/L Anion Gap 14 7 - 15 mmol/L Glucose 229 (H) 70 - 120 mg/dL Albumin 3.9 3.8 - 5.0 g/dL AST Alkaline Phosphatase 69 35 - 130 U/L Bilirubin, Total 0.4 <=1.2 mg/dL Calcium 8.2 (L) 8.4 - 10.2 mg/dL Protein 7.3 6.0 - 8.3 g/dL ALT 21 10 - 35 U/L TOXICOLOGY, URINE SCREEN W/ CONFIRMATION Result Value Ref Range Amphetamines Screen, U Negative Negative Benzodiazepines Screen, U Negative Negative Cannabinoids Screen, U Negative Negative Cocaine Metabolite Screen, U Negative Negative Fentanyl Screen, U Negative Negative Hydrocodone Screen, U Negative Negative Methadone Metabolite Screen, U Negative Negative Morphine/Codeine Screen, U Negative Negative Oxycodone Screen, U Negative Negative ETHANOL, MEDICAL Result Value Ref Range ETHANOL, MEDICAL Negative Negative LACTATE,WHOLE BLOOD Result Value Ref Range Lactate, Whole Blood 3.6 (H) 0.4 - 2.0 mmol/L PT INR Result Value Ref Range Prothrombin Time 20.0 (H) 11.6 - 15.2 seconds INR 1.7 (H) 0.8 - 1.2 URINALYSIS, REFLEX TO MICROSCOPIC Result Value Ref Range Color, Urine Yellow Light Yellow, Yellow, Dark Yellow Clarity, Urine Clear Clear Glucose, Urine Negative Negative mg/dL Bilirubin, Urine Negative Negative Ketone, Urine Negative Negative mg/dL Specific [place], Urine 1.019 1.003 - 1.030 Blood, Urine Large (A) Negative pH, Urine 6.0 5.0 - 7.5 Units Protein, Urine Trace (A) Negative mg/dL Urobilinogen, Urine 0.2 0.2, 1.0 mg/dL Nitrite, Urine Positive (A) Negative Esterase, Urine Moderate (A) Negative TYPE AND SCREEN Result Value Ref Range ABO O Rh Negative Red Blood Cell Antibody Screen Negative Specimen Expiration Date 07/29/2024 23:59 TROPONIN T, HIGH SENSITIVITY Result Value Ref Range Troponin T, High Sensitivity 18 (H) <=14 ng/L CBC Result Value Ref Range WBC 9.85 4.00 - 10.80 K/uL RBC 3.92 3.85 - 5.15 M/uL HGB 11.5 (L) 12.0 - 15.3 g/dL HCT 36.0 36.0 - 45.2 % MCV 91.8 81.5 - 97.5 fL MCH 29.3 27.0 - 34.0 pg MCHC 31.9 32.0 - 36.0 g/dL RDW 17.0 11.5 - 15.5 % PLT 284 140 - 400 K/uL MPV 10.5 6.6 - 11.1 fL nRBCs 0 <=0 /100 WBCs DIFFERENTIAL, AUTOMATED Result Value Ref Range WBC 9.85 4.00 - 10.80 K/uL Neutrophils % 65.0 40.0 - 75.0 % Lymphocytes % 21.4 18.0 - 42.0 % Monocytes % 8.2 1.0 - 11.0 % Eosinophils % 4.5 0.0 - 6.0 % Basophils % 0.4 0.0 - 2.0 % Immature Granulocytes % 0.5 0.0 - 2.0 % Absolute Neutrophils 6.40 1.80 - 7.70 K/uL Absolute Lymphocytes 2.11 1.00 - 4.80 K/ul Absolute Monocytes 0.81 0.00 - 1.10 K/uL Absolute Eosinophils 0.44 0.00 - 0.70 K/uL Absolute Basophils 0.04 0.00 - 0.20 K/uL Absolute Immature Granulocytes 0.05 0.00 - 0.20 K/uL TROPONIN T, HIGH SENSITIVITY Result Value Ref Range Troponin T, High Sensitivity 20 (H) <=14 ng/L MICROSCOPIC EXAM, URINE Result Value Ref Range RBC, Urine 50+ (A) 0 - 2 /HPF WBC, Urine 50+ (A) 0 - 2 /HPF Bacteria, Urine >200 (A) 0 - 25 /HPF LACTATE Result Value Ref Range Lactate 2.8 (H) 0.4 - 2.0 mmol/L GLUCOSE METER, POINT OF CARE Result Value Ref Range Glucose Meter 199 (H) 70 - 120 mg/dL *Note: Due to a large number of results and/or encounters for the requested time period, some results have not been displayed. A complete set of results can be found in Results Review. CT HEAD/BRAIN WO CONTRAST Final Result PROCEDURE INFORMATION: Exam: CT Head Without Contrast Exam date and time: 07/26/2024 7:08 PM Age: 84 years old Clinical indication: Injury or trauma; Fall; Blunt trauma (contusions or hematomas); Injury details: Glf. On blood thinner. ; Additional info: Significant trauma with possible severe neurologic injury or neck pain TECHNIQUE: Imaging protocol: Computed tomography of the head without contrast. Radiation optimization: All CT scans at this facility use at least one of these dose optimization techniques: automated exposure control; mA and/or kV adjustment per patient size (includes targeted exams where dose is matched to clinical indication); or iterative reconstruction. COMPARISON: CT C SPINE WO CONTRAST 06/10/2024 4:40 PM FINDINGS: Brain: Chronic encephalomalacia in the high left parietal vertex. There is patchy hypoattenuation in the periventricular white matter. While nonspecific, this is favored to represent chronic small vessel ischemic change. There is mild cerebral volume loss with associated mild prominence of the CSF spaces. No midline shift. No evidence of acute intracranial hemorrhage. No extra-axial fluid collection. No intracranial mass or mass effect. Cerebral ventricles: The ventricles appear enlarged, in proportion to the mild parenchymal volume loss. Paranasal sinuses: Visualized paranasal sinuses are normally aerated and clear throughout. Mastoid air cells: Visualized mastoid air cells are clear. Bones: Osseous calvarium appears intact. No fracture is seen. Soft tissues: There is superficial soft tissue swelling in the posterior left high parietal scalp with small cephalhematoma. Vasculature: There is calcific atherosclerosis within the cavernous carotids. IMPRESSION IMPRESSION: 1. Superficial scalp soft tissue swelling with small cephalohematoma in the high posterior left parietal scalp. No underlying calvarial fracture or acute intracranial pathology. 2. Chronic senescent intracranial findings as above. PROCEDURE INFORMATION: Exam: CT Cervical Spine Without Contrast Exam date and time: 07/26/2024 7:08 PM Age: 84 years old Clinical indication: Injury or trauma; Fall; Blunt trauma (contusions or hematomas); Injury details: Glf. On blood thinner. ; Additional info: Significant trauma with possible severe neurologic injury or neck pain TECHNIQUE: Imaging protocol: Computed tomography of the cervical spine without contrast. Radiation optimization: All CT scans at this facility use at least one of these dose optimization techniques: automated exposure control; mA and/or kV adjustment per patient size (includes targeted exams where dose is matched to clinical indication); or iterative reconstruction. COMPARISON: CT C SPINE WO CONTRAST 06/10/2024 4:40 PM FINDINGS: Bones: Normal craniocervical and atlantoaxial alignment. The odontoid process is intact. There is no evidence of increased density within the spinal canal to suggest hemorrhage. Normal alignment of the cervical spine vertebral bodies and facets without evidence of listhesis or skipped/perched facet. Mild to moderate scattered endplate and facet degenerative changes throughout the cervical spine. No cervical spinal fracture is seen. No aggressive osseous lesion. Mastoid air cells: Visualized mastoid air cells are clear. Prevertebral and retropharyngeal spaces: The prevertebral soft tissues are normal in thickness. Lungs: Visualized lung apices are clear. Soft tissues: The visualized superficial soft tissues have a normal appearance. IMPRESSION: 1. No evidence of a cervical spinal fracture or traumatic malalignment. Mild to moderate cervical spondylosis. THIS DOCUMENT HAS BEEN ELECTRONICALLY SIGNED BY DAVID ACOSTA MD CT C SPINE WO CONTRAST Final Result PROCEDURE INFORMATION: Exam: CT Head Without Contrast Exam date and time: 07/26/2024 7:08 PM Age: 84 years old Clinical indication: Injury or trauma; Fall; Blunt trauma (contusions or hematomas); Injury details: Glf. On blood thinner. ; Additional info: Significant trauma with possible severe neurologic injury or neck pain TECHNIQUE: Imaging protocol: Computed tomography of the head without contrast. Radiation optimization: All CT scans at this facility use at least one of these dose optimization techniques: automated exposure control; mA and/or kV adjustment per patient size (includes targeted exams where dose is matched to clinical indication); or iterative reconstruction. COMPARISON: CT C SPINE WO CONTRAST 06/10/2024 4:40 PM FINDINGS: Brain: Chronic encephalomalacia in the high left parietal vertex. There is patchy hypoattenuation in the periventricular white matter. While nonspecific, this is favored to represent chronic small vessel ischemic change. There is mild cerebral volume loss with associated mild prominence of the CSF spaces. No midline shift. No evidence of acute intracranial hemorrhage. No extra-axial fluid collection. No intracranial mass or mass effect. Cerebral ventricles: The ventricles appear enlarged, in proportion to the mild parenchymal volume loss. Paranasal sinuses: Visualized paranasal sinuses are normally aerated and clear throughout. Mastoid air cells: Visualized mastoid air cells are clear. Bones: Osseous calvarium appears intact. No fracture is seen. Soft tissues: There is superficial soft tissue swelling in the posterior left high parietal scalp with small cephalhematoma. Vasculature: There is calcific atherosclerosis within the cavernous carotids. IMPRESSION IMPRESSION: 1. Superficial scalp soft tissue swelling with small cephalohematoma in the high posterior left parietal scalp. No underlying calvarial fracture or acute intracranial pathology. 2. Chronic senescent intracranial findings as above. PROCEDURE INFORMATION: Exam: CT Cervical Spine Without Contrast Exam date and time: 07/26/2024 7:08 PM Age: 84 years old Clinical indication: Injury or trauma; Fall; Blunt trauma (contusions or hematomas); Injury details: Glf. On blood thinner. ; Additional info: Significant trauma with possible severe neurologic injury or neck pain TECHNIQUE: Imaging protocol: Computed tomography of the cervical spine without contrast. Radiation optimization: All CT scans at this facility use at least one of these dose optimization techniques: automated exposure control; mA and/or kV adjustment per patient size (includes targeted exams where dose is matched to clinical indication); or iterative reconstruction. COMPARISON: CT C SPINE WO CONTRAST 06/10/2024 4:40 PM FINDINGS: Bones: Normal craniocervical and atlantoaxial alignment. The odontoid process is intact. There is no evidence of increased density within the spinal canal to suggest hemorrhage. Normal alignment of the cervical spine vertebral bodies and facets without evidence of listhesis or skipped/perched facet. Mild to moderate scattered endplate and facet degenerative changes throughout the cervical spine. No cervical spinal fracture is seen. No aggressive osseous lesion. Mastoid air cells: Visualized mastoid air cells are clear. Prevertebral and retropharyngeal spaces: The prevertebral soft tissues are normal in thickness. Lungs: Visualized lung apices are clear. Soft tissues: The visualized superficial soft tissues have a normal appearance. IMPRESSION: 1. No evidence of a cervical spinal fracture or traumatic malalignment. Mild to moderate cervical spondylosis. THIS DOCUMENT HAS BEEN ELECTRONICALLY SIGNED BY DAVID ACOSTA MD XR CHEST 1 VIEW Final Result PROCEDURE INFORMATION: Exam: XR Chest Exam date and time: 07/26/2024 7:01 PM Age: 84 years old Clinical indication: Other: Trauma protocol TECHNIQUE: Imaging protocol: Radiologic exam of the chest. Views: 1 view. COMPARISON: CR XR CHEST 1 VIEW 06/10/2024 8:32 PM FINDINGS: Lungs: The lungs are adequately expanded. No focal consolidations or pulmonary edema. Pleural spaces: No pleural effusions or pneumothorax. Heart/Mediastinum: No cardiomegaly. Loop recorder overlies the cardiac silhouette. Bones/joints: No acute fractures. IMPRESSION IMPRESSION: No acute pulmonary disease. THIS DOCUMENT HAS BEEN ELECTRONICALLY SIGNED BY SANDI ESPINOZA DO I personally reviewed her EKG and it shows Wenkebach type heart block. Assessment and Plan IMPRESSION: Principal Problem: Complicated UTI (urinary tract infection) Active Problems: Acquired hypothyroidism Type 2 diabetes mellitus with hemoglobin A1c goal of less than 8.0% ([facility]) HTN, goal below 140/90 Gastroesophageal reflux disease with esophagitis Paroxysmal atrial fibrillation (HCC) Ambulatory dysfunction Hemiplegia, post-stroke (HCC) Fall at home Resolved Problems: * No resolved hospital problems. * DIFFERENTIAL AND PLAN: Admit to telemetry bed; the fall sounds mechanical but she has paroxysmal a-fib, heart block with sr seen on EKG now, and history of complete heart block in past. At least for tonight, will monitor her cardiac function -empiric abx for suspected uti -insulin for DM2 -continue anti-htn meds; continue metoprolol for rate control -fall precautions -pt/ot evaluation -she is on soft foods for diet with no fluid restrictions -anticoagulation is unclear; she was to be off coumadin after recent ich, but inr was 2.3 10 days ago and it is 1.7 now. Coumadin was supposed to be held until neurosurgery agreed with resumption. She did receive a script from doctor in [facility] [employer] but this will need to be verified PHARMACOLOGIC VTE PROPHYLAXIS: lovenox 40 bid. Coumadin to be clarified in AM CODE STATUS: Full Code EXPECTED DISCHARGE DATE: 1-2 days or more documented in this encounter Procedure Notes * Vamshi Caal DO - 07/26/2024 7:22 PM EDTAssociated Order(s): EKG REASON FOR STUDY: FALL CONCLUSIONS: Sinus rhythm 2nd degree AV block (Mobitz I) with occasional Premature ventricular complexes Left axis deviation Incomplete left bundle branch block Left ventricular hypertrophy with secondary repolarization abnormality Abnormal ECG When compared with ECG of 10-Jun-2024 23:16, Mobitz type 1 is now present Ventricular Rate: 81 Atrial Rate: 89 QRS Duration: 106 QT/QTc: 376/436 ms P-R-T [place]: 52 : -37 : 87 degrees documented in this encounter Consult Notes * Homa Vee, PT - 07/28/2024 10:45 AM EDTAssociated Order(s): ADULT PHYSICAL THERAPY CONSULT IP GENERAL EVALUATION - Physical Therapy [facility] [id number] Name: Alka Lawson Location: [facility] [id number] Date: 07/28/2024 Time: 1045 Alka Lawson is a/an 84 year old female. Patient Status: Inpatient Insurance: Payor: MEDICARE Plan: MEDICARE A AND B Product Type: *No Product type* Payor: [facility] Plan: SECURITY 65 MEDICARE SUPPLEMENT Product Type: *No Product type* Patient Seen: at bedside, nursing cleared patient for therapy Patient Identified By: Name, ID Band and Date Patient presents with HPI of the following, per MD note, "HPI: This is an 84 yo woman with below pmh that includes dm2, htn, hld. She was previously here for L MCA stroke that resulted in right sidedweakness; also her most recent admission was to [facility] for intracranial bleeding. This most recent admission was complicated by uti. She was discharged from rehab to home and today fell at home. She was brought to ED for evaluation as she is on coumadin. Patient has aphasia since her strokes and responds appropriately but very slowly. She uses a walker to get about the house and wears depends. She is unsure about recent weakness. No fever, chills or dyspnea. No nausea or vomiting. Otherwise, she was a difficult historian due to significant aphasia/dysarthria but does answer questions with definite answers." Diagnosis: weakness, gait abnormality (07/28/241044) Status of treatment: OOB evaluation completed (07/28/241044) Orders: PT evaluation and treatment (07/28/241044) Weight Bearing Status: Weight bearing as tolerated (07/28/241044) Precautions: Falls;Safety (07/28/24 104) Total Treatment Time--free text: 40 (07/28/24 104) Past Medical History: Past Medical History: Diagnosis Date Acute respiratory disease due to COVID-19 virus 07/27/2021 Back injury Cystocele, midline 05/28/2012 Demyelinating changes in brain (HCC) 02/16/201101/27--DrMittal-IgG synthesis rate, myelin basic protein, CSF angiotensin converting enzyme, CSF lyme disease DNA PCR and HSV were all within the normal range>>f/u 05/2011--rec fu prn Depression 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 History of esophageal stricture 09/28/201001/31-ome 40 hs, zantac inc bid>03/03--EGD--nl ,A single epithelial polyp was found in the gastricfundus -bx--con inc ppi bid/chg ppi EGD per Dr. Lynn 02/28/2010, normal esophagus, empirically dilated, small hiatal hernia HTN, goal below 140/90 Hyperlipidemia LDL goal < 100 Hypothyroidism MAYCOL (iron deficiency anemia) 11/29/201312/02-MAYCOL Sec hemorrhoids--improved on iron suppl--defers sg eval> >01/31-dc fe ILD (interstitial lung disease) ([facility]) 02/14/2023 Internal hemorrhoids 01/26/2014 Intraventricular hemorrhage ([facility]) 06/11/2024 Mixed incontinence urge and stress (male)(female) 11/16/2010 Nocturnal hypoxia 05/14/201506/02--night ox 01/31 my read-desaturation to 87%.-?pattern osas. >refer-sleep cl eval-[facility] sleep study>08/12/15--no osas, -fu 09/02---rec O2 defers Obesity, Class III, BMI 40-49.9 (morbid obesity) ([facility]) 05/03/2010 Per Obesity Protocol, #19 ICD-10 update of inactive term Pneumonia due to COVID-19 virus 07/27/2021 Severe obesity with body mass index (BMI) of 35.0 to 35.9 and comorbidity ([facility]) 05/11/2011 Stroke (HCC) Trochanteric bursitis of right hip 11/27/2012 Urgency incontinence 10/02/2014 Varicose vein of leg 05/28/2012 Mild lt leg Past Surgical History: Past Surgical History: Procedure Laterality Date BX BREAST PERCUT W/O IMAGE Left 05/02/2017 05/02/2017 left breast , ultrasound guided core bx dx intraductal papillomas - [facility] COLONOSCOPY, DIAGNOSTIC (RECTUM) 03/12/2015 COLONOSCOPY FLEXIBLE PROXIMAL DIAGNOSTIC performed by Neel Lynn MD at ENDOSCOPY [facility] COLONOSCOPY, DIAGNOSTIC (RECTUM) 09/28/2017 COLONOSCOPY FLEXIBLE PROXIMAL DIAGNOSTIC performed by Leonela Majano MD at ENDOSCOPY [facility] COLONOSCOPY, DIAGNOSTIC (RECTUM) N/A 10/12/2020 COLONOSCOPY FLEXIBLE PROXIMAL DIAGNOSTIC performed by Nelda Tinoco DO at ENDOSCOPY [facility] DIABETIC EYE EXAM 04/11/11 No diabetic retinopathy - Dr. Joseph. EGD, FLEXIBLE, DIAGNOSTIC 09/20/2011 UPPER GI ENDOSCOPY DIAGNOSTIC performed by ALEC VALLES at ENDOSCOPY [facility] EGD, FLEXIBLE, DIAGNOSTIC 03/12/2015 ESOPHAGOGASTRODUODENOSCOPY (EGD), FLEXIBLE, TRANSORAL, DIAGNOSTIC performed by Neel Lynn MD at ENDOSCOPY [facility] EGD, FLEXIBLE, DIAGNOSTIC 09/28/2017 ESOPHAGOGASTRODUODENOSCOPY (EGD), FLEXIBLE, TRANSORAL, DIAGNOSTIC performed by Leonela Majano MD at ENDOSCOPY [facility] EGD, FLEXIBLE, DIAGNOSTIC N/A 10/12/2020 ESOPHAGOGASTRODUODENOSCOPY (EGD), FLEXIBLE, TRANSORAL, DIAGNOSTIC performed by Nelda Tinoco DO at ENDOSCOPY [facility] EGD, W/ENDOSCOPIC US 10-25-11 fatty liver and pancreas infiltration benign lymph node jaxon hepatis region EXC BREAST LESION RADMARK Left 07/04/2017 EXCISION OF BREAST LESION RADIOLOGICAL MARKER performed by Linnea Cardozo MD at OR [facility] MISCELLANEOUS ORDER ([facility] ONLY) 1972 ectopic preg --?left at 4mths PARTIAL HYSTERECTOMY 1979 REMOVAL OF RUPTURED APPENDIX age 15 years REPAIR BLADDER & VAGINA, CYSTOCELE 1980 MMK Subjective: N/A Social History/Disposition Lives with: Spouse (07/28/24 1045) Assistance available: Yes (spouse and daughter assist with IADLs) (07/28/24 1045) Dwelling type: Single story home ([facility]) (07/28/241044) Entry steps: None (07/28/241044) Inside steps: None (07/28/241044) Bedroom location: 1st floor (07/28/241044) Bath location: 1st floor full bath (07/28/241044) Prior Level of Function Reported by: Patient (07/28/241044) Ambulation: Ambulatory with device (07/28/241044) Ambulatory Device: Rollator (07/28/241044) Devices at home: Grab bars;Shower chair;Rollator;Straight cane (07/28/241044) Observations Consciousness: Alert (07/28/241044) Orientation: Person;Place;Situation (knew month, not year) (07/28/241044) Psychosocial: Patient can communicate basic needs;Patient can converse in a social setting (07/28/241044) Other Findings: No (07/28/241044) Sitting Posture: Rounded shoulders;Forward head (07/28/241044) Standing Posture: Forward head;Rounded shoulders (07/28/241044) Pain: No complaints of pain Range of Motion Range of Motion: WFL (07/28/241044) Strength Assessment Strength Assessment: Deficits noted (07/28/241044) WNL, except: (4/5) (07/28/241044) Transfers Sit-Stand: Supervision (07/28/241044) Stand-Sit: Supervision (07/28/241044) W/C-Bed/Mat: Supervision (07/28/241044) Ambulation: Distance ambulated (feet): 50 Assistive Device: Rolling walker Assist: Supervision Balance Sit (Static): Good (07/28/241044) Sit (Dynamic): Good (07/28/241044) Stand (Static): Fair (07/28/241044) Stand (Dynamic): Fair (07/28/241044) Patient and or Family Goal(s): to get well and to return home Patient Education Review of Precautions: Safety;Fall (call villalba) (07/28/241044) Safety Awareness: Patient can communicate basic needs;Patient demonstrates carryover of insight during functional tasks;Patient verbalizes insight of current deficits (07/28/241044) Preferred learning method: Combination (07/28/241044) Barriers to learning: Medical Status (07/28/241044) Method of Education: Verbalized to patient (07/28/241044) Topic of Education: Safety with mobility, Goals/plan of care, Use of assistive device, Fall prevention, and d/c recommendations Method of Education: Verbal discussion and explanation provided to patient regarding topics mentioned above: verbalized understanding and or agreement of this information Extremity Exercise Sitting: Hip;Knee;Ankle;Isometrics (07/28/241044) Hip : Bilateral LE;Adduction;Abduction;1 set of 10 (07/28/241044) Knee : Bilateral LE;Extension;1 set of 10 (07/28/241044) Ankle: Bilateral LE;Plantar flexion;Dorsiflexion;1 set of 10 (07/28/241044) Isometrics: Bilateral LE;Glute sets;1 set of 10 (07/28/241044) Treatment Provided: Gait Training 10 minutes: gait training with rolling walker Therapeutic Exercises: 15 minutes Evaluation Moderate Complexity 15 minutes - [id number]: Patient was cooperative, pleasant, motivated, and alert during treatment session. Moderate complexity evaluation performed and 1-2 personal factors or comorbidities were identified that will impact plan of care, including obesity, multiple orthopedic injuries, cardiac history, history of CVA, and generalized weakness. Patient presents with limitations in bed mobility, transfers, gait, elevations, balance, endurance, and safety, which will impact plan of care. These limitations will be addressed by the goals set for this patient. Alarm Status Patient positioned in: Chair (07/28/241044) With: Call villalba in reach (07/28/241044) Treatment Status: Treatment at bedside (07/28/241044) Goals: Demonstrate Bed Mobility with: Supine to Sit: independent (pt does 100%) Sit to supine: independent (pt does 100%) Demonstrate Transfers with: Sit to stand: modified independent (with device or slow) Bed to chair: modified independent (with device or slow) Demonstrate ambulation 100 feet modified independent (with device or slow) with RW or rollator Increase Safety: with all mobility tasks to decrease fall risk Time Frame: 1-8 visits Assessment: Patient currently requires supervision for all mobility tasks with use of RW. 25% verbal education required for safety/technique without any LOB or safety concerns noted. Amb with overalldecreased gait speed. Patient verbalizes appropriate level of insight into current functional deficits and demonstrates overall good safety awareness. Denied having any onset of symptoms with mobility . PT AM PAC is 17, Would consider home with post-acute care services which may include outpatient therapy or home health. The level of care will be determined in collaboration with the patient, family/caregiver, and care team members. Will cont to provide skilled PT services while at [facility]. Deficits requiring P.T. treatment needs: Mobility;Safety;Balance;Weakness;Lower extremity strength (07/28/24 1045) Equipment Needs: Equipment needs: Rolling walker (07/28/24 1045) Treatment Plan: Bed mobility training, Transfer training, Gait training, ROM exercises: , Strengthening exercises: , Balance activities, and Educate on safety with all mobility tasks to decrease fallrisk Anticipated Frequency (on eval): 3 to 5 times per week (07/28/24 1045) AM PAC Score with Stairs: 17 * Yessenia Rojas PA-C - 07/28/2024 8:39 AM EDTAssociated Order(s): CARDIOLOGY CONSULT IP Cardiology Consult [facility]-[address] [id number] Name: Alka Lawson Location: [facility] [id number] Date: 07/28/2024 Time: 8:40 AM REQUESTING SERVICE: Hospitalist REASON FOR CONSULT: second degree AV block with Incomplete LBBB HPI: Alka Lawson is a 84 year old with past medical history of DM2, HTN, HLD, CVA, ICH, who presented to [facility] ED after fall at home. Per chart review, she apparently had stood up from the dinner table and then fell backwards striking the back of her head, witnessed by family. EKG shows sinus rhythm with 2nd degree AV block Mobitz I and incomplete LBBB. On exam today, states she is feeling fine. Head hurts from where she fell. Denies chest pain, palpitations, shortness of breath. Follows with [facility] cardiology. Has implantable loop recorder in place, history of transient complete heart block during sleep, no indication for pacemaker at that time. Has mild residual right sided weakness from stroke, uses walker for ambulation. PAST MEDICAL HISTORY: Past Medical History: Diagnosis Date Acute respiratory disease due to COVID-19 virus 07/27/2021 Back injury Cystocele, midline 05/28/2012 Demyelinating changes in brain ([facility]) 02/16/201101/27--DrMittal-IgG synthesis rate, myelin basic protein, CSF angiotensin converting enzyme, CSF lyme disease DNA PCR and HSV were all within the normal range>>f/u 05/2011--rec fu prn Depression DM type 2 causing renal disease ([facility]) 11/16/2010 DM type 2, goal A1c below 7 External hemorrhoids with other complication 11/16/2010 Falls 07/27/2021 Family history of colon cancer 05/28/2012 brother Family hx of colon cancer 08/03/2014 Bro age ?62 Gastric polyps 05/28/201209/29--EGD---see epic-gastritis,?rel nsaid- gastric polyps-x3 -bx-benign fundic gland polyps GERD (gastroesophageal reflux disease) 09/28/2010 H/O ischemic left MCA stroke Hiatal hernia 08/03/2014 Hip osteoarthritis 11/27/201209/30--hip xr--Mild superior joint space narrowing of the bilateral hips.mild enthesopathic changesGr trochs. History of esophageal stricture 09/28/201001/31-ome 40 hs, zantac inc bid>03/03--EGD--nl ,A single epithelial polyp was found in the gastricfundus -bx--con inc ppi bid/chg ppi EGD per Dr. Lynn 02/28/2010, normal esophagus, empirically dilated, small hiatal hernia HTN, goal below 140/90 Hyperlipidemia LDL goal < 100 Hypothyroidism MAYCOL (iron deficiency anemia) 11/29/201312/02-MAYCOL Sec hemorrhoids--improved on iron suppl--defers sg eval> >01/31-dc fe ILD (interstitial lung disease) ([facility]) 02/14/2023 Internal hemorrhoids 01/26/2014 Intraventricular hemorrhage ([facility]) 06/11/2024 Mixed incontinence urge and stress (male)(female) 11/16/2010 Nocturnal hypoxia 05/14/201506/02--night ox 01/31 my read-desaturation to 87%.-?pattern osas. >refer-sleep cl eval-viral sleep study>08/12/15--no osas, -fu 09/02---rec O2 defers Obesity, Class III, BMI 40-49.9 (morbid obesity) (HCC) 05/03/2010 Per Obesity Protocol, #19 ICD-10 update of inactive term Pneumonia due to COVID-19 virus 07/27/2021 Severe obesity with body mass index (BMI) of 35.0 to 35.9 and comorbidity (HCC) 05/11/2011 Stroke (HCC) Trochanteric bursitis of right hip 11/27/2012 Urgency incontinence 10/02/2014 Varicose vein of leg 05/28/2012 Mild lt leg PAST SURGICAL HISTORY: Past Surgical History: Procedure Laterality Date BX BREAST PERCUT W/O IMAGE Left 05/02/2017 05/02/2017 left breast , ultrasound guided core bx dx intraductal papillomas - [facility] COLONOSCOPY, DIAGNOSTIC (RECTUM) 03/12/2015 COLONOSCOPY FLEXIBLE PROXIMAL DIAGNOSTIC performed by Neel Lynn MD at ENDOSCOPY [facility] COLONOSCOPY, DIAGNOSTIC (RECTUM) 09/28/2017 COLONOSCOPY FLEXIBLE PROXIMAL DIAGNOSTIC performed by Leonela Majano MD at [facility]OSCOPY [facility] COLONOSCOPY, DIAGNOSTIC (RECTUM) N/A 10/12/2020 COLONOSCOPY FLEXIBLE PROXIMAL DIAGNOSTIC performed by Nelda Tinoco DO at ENDOSCOPY [facility] DIABETIC EYE EXAM 04/11/11 No diabetic retinopathy - Dr. Joseph. EGD, FLEXIBLE, DIAGNOSTIC 09/20/2011 UPPER GI ENDOSCOPY DIAGNOSTIC performed by ALEC VALLES at [facility]OSCOPY [facility] EGD, FLEXIBLE, DIAGNOSTIC 03/12/2015 ESOPHAGOGASTRODUODENOSCOPY (EGD), FLEXIBLE, TRANSORAL, DIAGNOSTIC performed by Neel Lynn MD at [facility] EGD, FLEXIBLE, DIAGNOSTIC 09/28/2017 ESOPHAGOGASTRODUODENOSCOPY (EGD), FLEXIBLE, TRANSORAL, DIAGNOSTIC performed by Leonela Majano MD at [facility] EGD, FLEXIBLE, DIAGNOSTIC N/A 10/12/2020 ESOPHAGOGASTRODUODENOSCOPY (EGD), FLEXIBLE, TRANSORAL, DIAGNOSTIC performed by Nelda Tinoco DO at ENDOSCOPY [facility] EGD, W/ENDOSCOPIC US 10-25-11 fatty liver and pancreas infiltration benign lymph node jaxon hepatis region EXC BREAST LESION RADMARK Left 07/04/2017 EXCISION OF BREAST LESION RADIOLOGICAL MARKER performed by Linnea Cardozo MD at OR [facility] MISCELLANEOUS ORDER ([facility] ONLY) 1972 ectopic preg --?left at 4mths PARTIAL HYSTERECTOMY 1979 REMOVAL OF RUPTURED APPENDIX age 15 years REPAIR BLADDER & VAGINA, CYSTOCELE 1979 [facility] FAMILY HISTORY: Family History Problem Relation Name Age of Onset Cancer Brother Colon Brain Aneurysm Sister Other (CKD) Daughter Stage III Diabetes Brother Stroke Brother Neurological Disorder Sister MS Dementia Sister No Past Hx Sister Other (ESRD) Other both parents; cause unknown; dad not on HD, M was SOCIAL HISTORY: Social History Tobacco Use Smoking status: Never Smokeless tobacco: Never Vaping Use Vaping status: Never Used Substance Use Topics Alcohol use: No Drug use: No ALLERGIES: Diphenhydramine, Epinephrine, Inderal [propranolol hcl], Lisinopril, Mepivacaine hcl, and Zocor [simvastatin] ROS: See HPI for pertinent positives. All others negative other than those noted in the HPI. CONSTITUTIONAL: No change in weight, No weakness, No fatigue and No fevers, No sweats or chills. PULMONARY: No cough, sputum, or hemoptysis, No wheezing, No shortness or breath and No recent change in breathing. CARDIOVASCULAR: No chest pain, No dyspnea on exertion, No edema, No palpitations and No syncope. GASTROINTESTINAL: No abdominal pain, No change in bowel habits, No significant heartburn, No nausea, No vomiting, No diarrhea, No constipation, No blood in stools or black tarry stools. No dysphagia. HEMATOLOGIC: No abnormal bleeding and No bruising. NEUROLOGICAL: Normal balance, No headaches and No weakness. PRIOR TO ADMISSION MEDICATIONS: Prior to Admission medications Medication Sig Last Dose Discont. Potassium Chloride ER 10 MEQ Oral Tablet Extended Release Take 1 Tablet by mouth. In the morning. 07/26/2024 Bisacodyl 10 MG Rectal Suppository (Dulcolax) Administer 1 Suppository into the rectum in the morning. Past Week metFORMIN HCl 1000 MG Oral Tablet (Glucophage) Take 1 Tablet by mouth in the morning and 1 Tablet before bedtime. With meals.. Do not start before June 14, 2024. 07/26/2024 Synthroid 125 MCG Oral Tablet TAKE 1 TABLET BY MOUTH ONCE DAILY AT LEAST 30 MINUTES PRIOR TO BREAKFAST OR OTHER MEDICATIONS 07/26/2024 Gabapentin 300 MG Oral Capsule (Neurontin) Take 2 Capsules by mouth in the morning and 2 Capsules before bedtime. 07/26/2024 Omeprazole 40 MG Oral Capsule Delayed Release (PriLOSEC) Take 1 Capsule by mouth at bedtime. 07/26/2024 hydroCHLOROthiazide 12.5 MG Oral Capsule (Hydrodiuril) Take 1 capsule by mouth once daily 07/26/2024 Allopurinol 100 MG Oral Tablet (Zyloprim) Take 2 tablets by mouth once daily 07/26/2024 glipiZIDE ER 10 MG Oral Tablet Extended Release 24 Hour (Glucotrol XL) TAKE 1 TABLET BY MOUTH ONCE DAILY 30 MINUTES BEFORE A MEAL 07/26/2024 Metoprolol Tartrate 50 MG Oral Tablet (Lopressor) Take 0.5 Tablets by mouth in the morning and 0.5 Tablets before bedtime. 07/26/2024 Acetaminophen 325 MG Oral Tablet (Tylenol) Take 2 Tablets by mouth every 8 hours as needed for Pain, Moderate. Past Month Hydrocortisone 1 % External Cream Apply topically to affected area daily as needed for Hemorrhoids.Apply to hemorhoids Past Week Losartan Potassium 25 MG Oral Tablet (Cozaar) Take 1 Tablet by mouth in the morning. 07/26/2024 Atorvastatin Calcium 80 MG Oral Tablet (Lipitor) Take 1 Tablet by mouth every afternoon. 07/26/2024 Vitamin D3 25 MCG (1000 UT) Oral Capsule Take 1 Capsule by mouth once. 07/26/2024 zoster vac recomb adjuvanted (SHINGRIX) 50 MCG/0.5ML injection Inject 0.5 mL into a large muscle now and repeat dose in 60 to 180 days Unknown Cyanocobalamin (B-12) 1000 MCG TABS Take 1 Tab by mouth daily. 07/26/2024 Cephalexin 500 MG Oral Capsule (Keflex) Take 1 Capsule by mouth in the morning and 1 Capsule beforebedtime. Do all this for 1 day. Docusate Sodium 100 MG Oral Capsule (Colace) Take 1 Capsule by mouth in the morning and 1 Capsule before bedtime. Patient not taking: Reported on 07/27/2024 Not Taking Enoxaparin Sodium 40 MG/0.4ML Injection Solution Prefilled Syringe (Lovenox) Inject 40 mg under theskin in the morning and 40 mg before bedtime. Do all this for 9 days. Do not start before June 18, 2024. Heparin Sodium (Porcine) PF 5000 UNIT/0.5ML Injection Solution Inject 0.5 mL under the skin in the morning and 0.5 mL at noon and 0.5 mL before bedtime. Do all this for 4 days. Sennosides 8.6 MG Oral Tablet (Senokot) Take 2 Tablets by mouth in the morning. Patient not taking: Reported on 07/27/2024 Not Taking OneTouch Ultra In Vitro Strip (Glucose Blood) Use as directed to check blood sugar once a day. Patient not taking: Reported on 07/27/2024 Not Taking Clotrimazole-Betamethasone 1-0.05 % External Cream Apply topically to affected area twice daily. Patient not taking: Reported on 07/02/2024 Not Taking ONETOUCH DELICA LANCETS MISC use as directed up to 4 times per day Patient not taking: Reported on 07/27/2024 Not Taking PHYSICAL EXAMINATION: Most Recent Vital Signs: BP: 105 mmHg/76 mmHg (07/28/24736) Pulse: 71 (07/28/24736) Resp: 16 (07/28/24736) Temp: 36.28 C (07/28/24736) Temp Summary: Temp Min: 36.2 C (97.2 F) Max: 37.1 C (98.8 F) SpO2: 94 % (07/28/24736) O2 flow rate: Supplemental O2 Delivery: Room Air, None (07/28/24736) Vital Signs Last 24 Hours: Systolic BP: @SBPMAXR(24)@ Temperature: Temp Av.6 C (97.8 F) Min: 36.2 C (97.2 F) Max: 37.1 C (98.8 F) Pulse: Pulse Av.1 Min: 68 Max: 90 Respirations: Resp Av.6 Min: 16 Max: 18 SpO2: SpO2 Av.7 % Min: 91 % Max: 94 % General: No acute distress. A+Ox3. HEENT: Normocephalic. Atraumatic. PERRL. EOMI. Conjunctiva and sclera clear. NECK: No carotid bruits. No JVD. Carotid upstrokes are brisk. Heart: RRR. S1 and S2 noted. No murmur. No rubs or gallops. PMI non displaced. Lungs: Clear to auscultation. No wheezes.No rhonchi. No rales. Abdomen: Normal bowel sounds. Soft. Nontender. No masses or organomegaly. No abdominal bruits. Extremities: No edema. No clubbing or cyanosis. Pulses: radial=2/4, posterior tibial=2/4, dorsalis pedis = 2/4. NEURO: No focal deficits. PSYCH: Appropriate affect and insight. DATA: Labs & Imaging Reviewed Below: EKG 07/26/24 Sinus rhythm with 2nd degree AV block Mobitz I, 81 bpm, incomplete LBBB Echo 06/11/24 The examination is limited quality but adequate for evaluation of the referral indication. The qualitative LV ejection fraction is 55-59% (normal). The left ventricular wall motion is normal by limited analysis. All left ventricular segments are not visualized. The right ventricle is inadequately visualized. The right ventricular systolic function is qualitatively normal. Mild mitral regurgitation is present. Mild tricuspid regurgitation is present. Mild pulmonary hypertension is present.The estimated pulmonary artery systolic pressure is 40mm Hg. The interatrial septum is inadequately visualized. Latest Reference Range & Units 07/27/24 07:03 07/27/24 13:24 07/28/24 05:42 Sodium 135 - 146 mmol/L 141 140 Potassium 3.5 - 5.1 mmol/L 2.9 (L) 3.3 (L) Chloride 98 - 107 mmol/L 103 104 CO2 22 - 32 mmol/L 26 26 BUN 6 - 20 mg/dL 15 11 Creatinine 0.5 - 1.0 mg/dL 0.7 0.8 Estimated Glomerular Filtration Rate >=60 mL/min 82 77 Anion Gap 7 - 15 mmol/L 12 10 Glucose 70 - 120 mg/dL 116 143 (H) Calcium 8.4 - 10.2 mg/dL 7.7 (L) 8.0 (L) Estimated Average Glucose <126 mg/dL 146 (H) INR 0.8 - 1.2 1.7 (H) 1.5 (H) Prothrombin Time 11.6 - 15.2 seconds 19.7 (H) 18.5 (H) CBC Rpt ! WBC 4.00 - 10.80 K/uL 9.97 RBC 3.85 - 5.15 M/uL 3.43 HGB 12.0 - 15.3 g/dL 10.1 (L) HCT 36.0 - 45.2 % 30.4 (L) MCV 81.5 - 97.5 fL 88.6 MCH 27.0 - 34.0 pg 29.4 MCHC 32.0 - 36.0 g/dL 33.2 RDW 11.5 - 15.5 % 16.4 PLT 140 - 400 K/uL 216 MPV 6.6 - 11.1 fL 10.4 IMPRESSION: Fall Second degree AV block, Mobitz I Incomplete LBBB Paroxysmal atrial fibrillation DM2 HTN HLD Left MCA Stroke 11/2022 PLAN: - presents after fall at home, patient is poor historian, unclear etiology of fall or if she lost consciousness, possibly mechanical - telemetry with controlled heart rates, no significant pauses - will interrogate loop recorder - currently no indication for pacemaker, will continue to monitor telemetry - reduce metoprolol tartrate to 12.5 twice daily - continue warfarin, losartan, HCTZ, atorvastatin - stay well hydrated, change positions slowly - follow up with [facility] after discharge Case discussed and coordinated with Dr. Caal. Please see Dr. Caal notes for further recommendations. I spent a total of 35 minutes coordinating, documenting, and providing care for this patient excluding time spent in the performance of separately billed services or time spent by another provider/QHP. Yessenia Rojas PA-C Department of Cardiology Associated attestation - Vamshi Caal DO - 07/28/2024 2:08 PM EDT I have reviewed the advanced practitioner's documentation on the date of service referenced in note, and I agree with, and take responsibility for the plan of care. I spent a total of 45 minutes coordinating, documenting, and providing care for this patient excluding time spent in the performance of separately billed services or time spent by another provider/QHP. 84-year-old female with a past medical history of paroxysmal atrial fibrillation/flutter, DM II, HTN, HLD, CVA, ICH presented to [facility] with what appears to be a mechanical fallwithout any syncope. CT of the head showed no acute intracranial abnormality. Patient resting comfortably in bed today. She denies chest pain, dyspnea, orthopnea, PND, lower extremity edema, palpitations, or syncope. Her ECG showed sinus rhythm with second-degree AV block Mobitz type 1 with occasional PVCs. Overnight on telemetry no high- degree AV block or significant pauses noted. She had a loopmonitor placed by her primary transit specialist as patient has a history of transient complete heart block while she sleeps and no pacemaker was indicated the time. Back in May patient was admitted to [facility] with an intraventricular hemorrhage. She was apparently okay for anticoagulation per Neurosurgery team. Her EKG did showed marked sinus bradycardia with AV dissociation. This rhythm may possibly have been related to her intracranial hemorrhage. We interrogated her loop recorder and has not had any significant episodes of high-degree AV block or complete heart block. There was an asymptomatic episode of a sinus pauses 3 seconds unrelated to her fall with no other significant abnormalities. Echocardiogram done on 06/11/2024 showed LVEF of 55-59%, normal RV systolic function, mild MR, mild TR. No evidence high-degree AV block or significant pauses on tele. Patient restingcomfortably in bed. I discussed with our EP physician patient's history, EKGs and loop findings andno indication for pacemaker from EP standpoint. Patient can follow up with outpatient transit specialist.We discussed risks and benefits of continued anticoagulation with family. Please re-consult Cardiology if needed. documented in this encounter Nursing Notes * Srinivas Hopkins LPN - 07/27/2024 1:53 AM EDT Pt refused blood sugar check, insulin and colace. Pt reported that if she had known nursing was going to be checking her blood sugars 4 times a day she wouldn't have left doctor's admit her. Pt reported that she does not check her blood sugars at home. Provider made aware. * Srinivas Hopkins LPN - 07/27/2024 1:03 AM EDT Dual Licensed Skin Assessment completed by KARINA Dorado and GABRIELLA Hopkins. The patient is/has a N/A Skin Breakdown (includes non blanchable erythema): No Pt arrived to floor in wc. Pt was able to ambulate to bed with 2 assist, without assistive device at this time. Pt did report that at home she uses a rollator walker at home. Pt educated on use of call villalba, safety. Pt reported that she would have her bring her synthroid from home because she is not allowed to take generic form of medication. Pt verbalized understanding of all teaching. Pt did request adult brief because of being incontinent of bladder. * Jag Sanches RN - 07/26/2024 7:21 PM EDT Pt arrived 0650 XR in room [address] 0715 documented in this encounter ED Notes * Renato Richardson DO - 07/26/2024 7:01 PM EDT HISTORY OF PRESENT ILLNESS Alka Lawson is a 84 year old female who presents to the ED for evaluation of Fall. The patient was seen at 07/26/241856. 84-year-old female with a history of diabetes, AFib on warfarin, hypertension, strokes, hypothyroid presenting to the emergency department after a fall. She does not rememberthe fall well now but apparently for EMS she did remember the fall initially. She apparently had stood up from the dinner table and then fell backwards striking the back of her head. Family witnessedthis. She did not lose consciousness. She is on warfarin was made a trauma alert. She denies any chest, abdominal, back or neck pain. She only complains of a headache. Denies any new visual disturbance. She says she needs her glasses. Denies any urinary symptoms, abnormal bowel movements, coughing,congestion, fevers, chills, palpitations or shortness of breath. Denies pain in her extremities other than from the blood pressure cuff going up. History provided by: patient certified court/medical interpreter used: No Alert type: Adult Trauma - Level 1 Trauma Evaluation: Pre-hospital notification: Yes Mechanism of injury: fall Time since injury: 45 minutes Arrival method: Ambulance Primary survey: airway normal, breath sounds normal, equal chest rise, pulses present in all extremities, no active bleeding, no focal deficit and alert and oriented Primary survey comment: Appropriately exposed Cervical spine assessment: C-collar placed by EMS Chest x-ray preliminary findings: Negative E-FAST findings: Not indicated Trauma Mechanism of injury: Fall The patient's allergies, past history, and medications were reviewed. PHYSICAL EXAM Initial Vitals (see all): BP 143/94 | Pulse 89 | Resp 22 | Temp 98.1 | O2 99 %, Room Air, None | Weight 80.29 kg | Height 147.3 cm | BMI 36.99 kg/m2 Initial Pain Assessment (see all): 0 (no pain)/10 ([facility] Adult Scale 0-10) Physical Exam Vitals and nursing note reviewed. Constitutional: General: She is not in acute distress. Appearance: Normal appearance. She is well-developed. She is not ill-appearing or diaphoretic. Interventions: Cervical collar in place. HENT: Head: Normocephalic. Comments: Left Occipital hematoma Nose: Nose normal. Mouth/Throat: Mouth: Mucous membranes are moist. Pharynx: Oropharynx is clear. Eyes: Extraocular Movements: Extraocular movements intact. Pupils: Pupils are equal, round, and reactive to light. Cardiovascular: Rate and Rhythm: Normal rate and regular rhythm. Pulses: Normal pulses. Pulmonary: Effort: Pulmonary effort is normal. No respiratory distress. Breath sounds: Normal breath sounds. No wheezing or rales. Chest: Chest wall: No tenderness. Abdominal: General: Bowel sounds are normal. There is no distension. Palpations: Abdomen is soft. Tenderness: There is no abdominal tenderness. There is no guarding. Musculoskeletal: General: Normal range of motion. Cervical back: Normal range of motion. Skin: General: Skin is warm. Neurological: General: No focal deficit present. Mental Status: She is alert. Sensory: No sensory deficit. Motor: No weakness. Psychiatric: Mood and Affect: Mood normal. PROCEDURES AND TREATMENTS ED Orders | ED Results MEDICAL DECISION MAKING Nursing notes and vital signs were reviewed. ED Course as of 07/26/24 3723 Sat Jul 26, [id number] Patient has urinary tract infection and I provided her ceftriaxone. [AT] 2309 Patient's lactate did improve to 2.8. She will need another fluid bolus. CT head and neck are negative. C-collar cleared. No significant midline tenderness. Nursing attempted to ambulate this patient with a walker and she only made a few feet before becoming lightheaded and have to sit back latisha wheelchair and be placed back in bed. After discussion with the family and patient they have agreed for admission. She is a high fall risk. She has a UTI with increased weakness and ambulatory dysfunction. I have paged the hospitalist to discuss admission. [AT] 2323 Patient accepted by the hospitalist team for further care. [AT] ED Course User Index [AT] Renato Richardson, Differential Diagnoses Based on my history, physical exam, and evaluation, the differential includes, but is not limited, to the following diagnoses: Intracranial hemorrhage, occult C-spine injury, syncope, dehydration, electrolyte abnormality, ACS less likely, dysrhythmia, vasovagal episode, orthostatic hypotension, viral illness, no suspicion at this time for significant intrathoracic/intra-abdominal injury. 84-year-old female presenting to the emergency department after a fall. It may have been mechanical. She does not remember the fall well. She also could have had a vagal episode or dysrhythmia. She denies feeling any chest pain, shortness of breath or palpitations or remembering having them around the fall but EMS says that in route she initially did remember more about the fall and started to become confused. At bedside she is awake alert and oriented to person in place. She does have a large left occipital hematoma. C-collar is in place. CT head and neck will be obtained. She has no tenderness over the rest of her spine, chest or abdomen. She only complains of a headache. I will provide her IV Tylenol when she returns and send labs including her INR. She is a full code. On my independent review this patient's EKG she has a sinus rhythm but has a second-degree AV block type 1. There intermittent PVCs. She did have a heart block on prior EKGs. Slightly depressed ST segment in 1 and aVL. Amount and/or Complexity of Data Reviewed Labs: ordered. Radiology: ordered. ECG/medicine tests: ordered. Risk Prescription drug management. Decision regarding hospitalization. Clinical Impressions Fall UTI (urinary tract infection) Generalized weakness Disposition Admitted. I discussed the management of this patient with the admitting provider and I made a decision to admit the patient. Admission Order Ordered Status . 07/26/24 2323 Assign to Observation ONCE Ordered Renato Richardson * Renato Perez RN - 07/26/2024 6:53 PM EDT Ems brings Pt to ED following a ground level fall on thinners. Fall was witnessed by family, no LOC. Pt has been having issues remembering the event. Pt denies pain. Pt from [facility] with . Pt ambulates with cane at baseline. documented in this encounter Miscellaneous Notes * Communication - Segundo Huerta NA - 07/28/2024 3:42 PM EDT Appointment: 07/31/2024 at 5:00 PM Jag Kovacs MD Family [facility], [place] [phone] 08/21/2024 at 1:30 PM Melvina Mensah CRNP Cardiology, [place] [phone] * Pt Handout (on AVS) - Patricia Aguillon RN - 07/28/2024 3:41 PM EDT [id number] Cefdinir Brand Name(s): Omnicef; also available generically WHY is this medicine prescribed? Cefdinir is used to treat certain infections caused by bacteria such as bronchitis (infection of the airway tubes leading to the lungs); pneumonia; and infections of the skin, ears, sinuses, throat, and tonsils.. Cefdinir is in a class of medications called cephalosporin antibiotics. It works by killing bacteria. Antibiotics such as cefdinir will not work for colds, flu, or other viral infections. Using antibiotics when they are not needed increases your risk of getting an infection later that resists antibiotic treatment. HOW should this medicine be used? Cefdinir comes as a capsule and suspension (liquid) to take by mouth. It is usually taken with or without food every 12 or 24 hours for 5 to 10 days, depending on the condition being treated. Take cefdinir at around the same times every day. Follow the directions on your prescription label carefully, and ask your doctor or pharmacist to explain any part you do not understand. Take cefdinir exactly as directed. Do not take more or less of it or take it more often than prescribed by your doctor. Shake the suspension well before each use to mix the medication evenly. You should begin to feel better during the first few days of treatment with cefdinir. If your symptoms do not improve or get worse, call your doctor. Continue to take cefdinir even if you feel better. If you stop taking cefdinir too soon or skip doses, your infection may not be completely treated and the bacteria may become resistant to antibiotics. Are there OTHER USES for this medicine? This medication may be prescribed for other uses; ask your doctor or pharmacist for more information. What SPECIAL PRECAUTIONS should I follow? Before taking cefdinir, tell your doctor and pharmacist if you are allergic to cefdinir or any other cephalosporin antibiotic such as cefaclor , cefadroxil cefazolin (Ancef, Kefzol), cefditoren (Spectracef), cefepime (Maxipime), cefixime (Suprax), cefotaxime (Claforan), cefotetan, cefoxitin (Mefoxin), cefpodoxime, cefprozil, ceftaroline (Teflaro), ceftazidime (Fortaz, Tazicef, in Avycaz), ceftibuten (Cedax), ceftriaxone (Rocephin), cefuroxime (Zinacef) or cephalexin (Keflex); penicillin antibiotics; or any other medications. Also tell your doctor if you are allergic to any of the ingredients in cefdinir capsules,or suspension. Ask your pharmacist for a list of the ingredients. tell your doctor and pharmacist what prescription and nonprescription medications, vitamins, nutritional supplements, and herbal products you are taking or plan to take. Be sure to mention probenecid ( Probalan). Your doctor may need to change the doses of your medications or monitor you carefully for side effects. if you are taking antacids containing magnesium or aluminum, iron supplements, or multivitamins that contain iron, take them 2 hours before or 2 hours after cefdinir. tell your doctor if you have or have ever had gastrointestinal disease (GI; affecting the stomach or intestines), especially colitis (condition that causes swelling in the lining of the colon [large intestine]), . or kidney disease. tell your doctor if you are , plan to become , or are . If you become while taking cefdinir, call your doctor. If you have diabetes, you should know that cefdinir suspension solution contains sucrose (sugar). What SPECIAL DIETARY instructions should I follow? Talk to your doctor about eating foods that have had iron added to them, such as iron fortified breakfast cereal, while taking this medication. However, babies may be fed iron fortified infant formula while they are taking this medication. What should I do IF I FORGET to take a dose? Take the missed dose as soon as you remember it. However, if it is almost time for the next dose, skip the missed dose and continue your regular dosing schedule. Do not take a double dose to make up for a missed one. What SIDE EFFECTS can this medicine cause? Cefdinir may cause side effects. Tell your doctor if any of these symptoms are severe or do not go away: vomiting nausea stomach pain diarrhea headache vaginal itching reddish colored stools Some side effects can be serious. If you experience any of the following symptoms call your doctor immediately or get emergency medical treatment: rash hives swelling of the face, throat, tongue, lips or eyes difficulty breathing or swallowing watery or bloody stools, stomach cramps, or fever during treatment or for up to two or more months after stopping treatment a return of fever, sore throat, chills, or other signs of infection If you experience a serious side effect, you or your doctor may send a report to the Food and Drug Administration's (FDA) MedWatch Adverse Event Reporting program online (https://www.fda.gov/Safety/MedWatch) or by phone ( ). What should I know about STORAGE and DISPOSAL of this medication? Keep this medication in the container it came in, tightly closed, and out of reach of children. Store the capsules and suspension at room temperature and away from excess heat and moisture (not in the bathroom). Dispose of any unused suspension after 10 days. Unneeded medications should be disposed of in special ways to ensure that pets, children, and otherpeople cannot consume them. However, you should not flush this medication down the toilet. Instead,the best way to dispose of your medication is through a medicine take-back program. Talk to your pharmacist or contact your local garbage/recycling department to learn about take-back programs in your community. See the FDA's Safe Disposal of Medicines website (https://goo.gl/c4Rm4p) for more information if you do not have access to a take-back program. It is important to keep all medication out of sight and reach of children as many containers (such as weekly pill minders and those for eye drops, creams, patches, and inhalers) are not child-resistant and young children can open them easily. To protect young children from poisoning, always lock safety caps and immediately place the medication in a safe location - one that is up and away and out of their sight and reach. https://www.upandaway.org What should I do in case of OVERDOSE? In case of overdose, call the poison control helpline at . Information is also available online at https://www.poisonhelp.org/help. If the victim has collapsed, had a seizure, has trouble breathing, or can't be awakened, immediately call emergency services at 076. Symptoms of overdose may include the following: nausea vomiting diarrhea stomach pain seizures What OTHER INFORMATION should I know? Keep all appointments with your doctor and laboratory. Your doctor may order certain lab tests to check your response to cefdinir. Before having any laboratory test, tell your doctor and the laboratory personnel that you are taking cefdinir. If you are diabetic and test your urine for sugar, use Clinistix or TesTape (but not Clinitest) to test your urine while taking this medication. If you test your urine for ketones, you should know that cefdinir may interfere with the results of this type of test. Talk to your doctor about how you should monitor your diabetes while you are taking cefdinir. Do not let anyone else take your medication. Your prescription is probably not refillable.. It is important for you to keep a written list of all of the prescription and nonprescription ([id number]-[id number]) medicines you are taking, as well as any products such as vitamins, minerals, or otherdietary supplements. You should bring this list with you each time you visit a doctor or if you areadmitted to a hospital. It is also important information to carry with you in case of emergencies. This report on medications is for your information only, and is not considered individual patient advice. Because of the changing nature of drug information, please consult your physician or pharmacist about specific clinical use. The [place] [employer] represents that the information provided hereunder was formulated with a reasonable standard of care, and in conformity with professional standards in the field. The [place] [employer] makes no representations or warranties, express or implied, including, but not limited to, any implied warranty of merchantability and/or fitness for a particular purpose, with respect to such information and specifically disclaims all such warranties. Users are advised that decisions regarding drug therapy are complex medical decisions requiring the independent, informed decision of an appropriate health caregivers homecare, and the information is provided for informational purposes only. The entire monograph for a drug should be reviewed for a thorough understanding of the drug's actions, uses and side effects. The [place] [employer] does not endorse or recommend the use of any drug.The information is not a substitute for medical care. [facility] Patient Medication Information?. Copyright, 2023. The [place] [employer], [address] [place] [address], [address], [place], [place]. All Rights Reserved. Duplication for commercial use must be authorized by [facility]. Selected Revisions: May 03, 2016. [facility] Patient Medication Information?. Copyright, 2023 * Ancillary Progress Note - Lara Swanson RN - 07/28/2024 1:18 PM EDT CARE MANAGEMENT - TRAUMA INITIAL SCREENING [address] [address] Name: Alka Lawson Location: [facility] [id number] Date: 07/28/2024 Time: 1:18 PM Discussed with Trauma and with the interdisciplinary care team. This Urgent Care performed a chartreview and met with patient at bedside to complete admission screen and assessed needs for transition planning. The point of care specialist role and services were explained and emotional support was provided. Chief Complaint: Fall Prior Living Arrangements What was your living situation prior to admission/observation?: With Spouse (07/28/241315) Living Quarters: House (07/28/241315) Number of steps to enter living quarters:: 0 (07/28/241315) How many stories is the dwelling?: One Story (07/28/241315) Prior Level of Functioning Describe the patient's ability prior to admission/observation to perform ADLs: Performs independently (07/28/241315) Describe the patient's mobility status prior to admission: Patient ambulates independently (07/28/241315) Patient uses assistive device: Yes (07/28/241315) If yes, choose:: Walker (07/28/241315) Caregiver Information Patient Contacts Name Relation Home Work Mobile RennySang Corwin Spouse [phone] [place] Lawson Adult Child [phone] Gabbi Velarde Adult Child [phone] Rodney Lawson Adult Child Risk Stratification Risk Stratification Psycho Social / Medical Concerns Identified: Adjustment to illness/injury;Multiple Comorbidities (07/28/241315) Accessed Neighborly to connect patients to social care resources: No (07/28/241315) Readmission Risk Score: 19.88 (07/28/24 1201) AM-PAC Score With Stairs : 17 (07/28/24 1045) Prior to Admission Services Services Prior to Admission [facility] Services (Services received within the last 30 days with exception, Psych within last two years): Durable Medical Equipment (07/28/241315) [facility] Durable Medical Equipment (DME) in home: Cane;Walker Rolling;Grab bars/Rails;Shower chair/bench(07/28/241315) [facility] Transportation (Services received within the last 30 days): Family/Friends Personal Vehicle (07/28/241315) Outpatient Urgent Care: Patient Care Team: Bria Waggoner RN as National Sales Manager (Registered Nurse) CAGE Questionnaire (Please check the correct response) One positive response to any of these questions indicates a need to perform the MAST questionnaire. (C) Have you ever felt the need to CUT DOWN on drinking? no (A) Have you ever felt ANNOYED by criticism of drinking? no (G) Have you ever had GUILTY FEELINGS about drinking? no (E) Have you ever taken a morning EYE ELEVATOR ERECTOR? no Comments: Patient lives with at [facility]. Patient independent with ADL's and ambulation with a rollator. Has a grabber, Shower chair, grab bars, cane at home. Family provides transportation. Discussed discharge planning. Patient agreeable to HH/ OP therapy or SNF rehab if needed. Per therapy patient is independent with ambulation with supervision/contact guard. Spoke with son to make aware patient able to return home with OP therapy to follow at . Son in agreement. Family will provide transport at discharge. 1340: and charge nurse, Pilar, made aware discharge plan. Patient/Family Expectations: home with OP therapy. For further screening information, please refer to the Care Management flow document. * Care Plan - Arlene Vuong RN - 07/28/2024 6:41 AM EDT Clinical Goal(s): Pt will remain free of falls this shift. (07/27/241999) Possible barriers to meeting goal(s)/advancing plan of care: Admitting diagnosis Stability of the patient: Moderately stable - low risk of patient condition declining or worsening Summary regarding today's goal(s): Met: Patient remained free from falls this shift. Recommendations: Continue with plan of care. * Pt Handout (on AVS) - Ginger Gaitan RN - 07/27/2024 9:04 PM EDT Images from the original note were not included. [address] Urinary Tract Infections in Women Urinary tract infections (UTIs) are most often caused by bacteria. These bacteria enter the urinarytract. The bacteria may come from inside the body. Or they may travel from the skin outside the rectum or vagina into the urethra. Female anatomy makes it easy for bacteria from the bowel to enter a person?s urinary tract. This is the most common source of UTIs. This means women develop UTIs more often than men. Pain in or around the urinary tract is a common UTI symptom. But the only way to know for sure if you have a UTI is for the healthcare provider to test your pee. The two tests that may be done are the urinalysis and urine culture. These tests tell your provider if you have a UTI and what type of bacteria is causing it. Gender words are used here to talk about anatomy and health risk. Please use this information in a way that works best for you and your provider as you talk about your care. Types of UTIs Cystitis. A bladder infection (cystitis) is the most common UTI in women. You may have an urgentor frequent need to pee. You may also have pain, burning when you pee, and bloody urine. Urethritis. This is an inflamed urethra. This is the tube that carries urine from the bladder tooutside the body. You may have lower stomach or back pain. You may also have an urgent or frequent need to pee. Pyelonephritis. This is a kidney infection. It can be serious and damage your kidneys if not treated. You may need to stay in the hospital in severe cases. You may have a fever and lower back pain. Medicines to treat a UTI Most UTIs are treated with antibiotics. These kill the bacteria. The length of time you need to take them depends on the type of infection. It may be as short as 3 days. You may need a low-dose antibiotic for several months if you have repeated UTIs. Take antibiotics exactly as directed. Don?t stoptaking them until all of the medicine is gone, even if you feel better. The infection may not go away fully and return if you stop taking the antibiotic too soon. You may also develop a resistance tothe antibiotic. This can make it much harder to treat. Lifestyle changes to treat and prevent UTIs The lifestyle changes below will help get rid of your UTI. They may also help prevent future UTIs. Drink plenty of fluids. This includes water, juice, or other caffeine-free drinks. Fluids help flush bacteria out of your body. Empty your bladder. Always empty your bladder when you feel the urge to pee. And always pee before going to sleep. Urine that stays in your bladder can lead to infection. Try to pee before and after sex as well. Practice good personal hygiene. Wipe yourself from front to back after using the toilet. This helps keep bacteria from getting into the urethra. Wear cotton underwear. Don't wear synthetic or tight-fitting underwear that can trap moisture. Change out of wet bathing suits and workout clothing quickly. Take showers. Showers are better than baths for preventing UTIs. Use condoms during sex. These help prevent UTIs caused by sexually transmitted bacteria. Also don't use spermicides during sex. These can increase the risk for UTIs. Choose other forms of control instead. A low dose of a preventive antibiotic may be used for women who tend to get UTIs after sex. Be sure to discuss this choice with your healthcare provider. Follow up with your healthcare provider as directed. They may test to make sure the infection has cleared. If needed, more treatment may be started. Last Reviewed Date: 06/19/202319995598-8799 [employer]. All rights reserved. This information is not intended as a substitute for professional medical care. Always follow your healthcare professional's instructions. * Care Plan - Charo Villatoro RN - 07/27/2024 5:02 PM EDT Clinical Goal(s): Patient will remain free from falls this shift. (07/27/24727) Possible barriers to meeting goal(s)/advancing plan of care: weakness, unfamiliar environment Stability of the patient: Moderately stable - low risk of patient condition declining or worsening Summary regarding today's goal(s): Met: Patient remained free from falls this shift. Recommendations: Assess patient for personal needs and assist as needed. Maintain fall precautions when OOB. Continue plan of care. * Medical Necessity - Héctor Arboleda RN - 07/27/2024 3:05 PM EDT AdmissionCare Guideline: Systemic / Infectious Condition, Inpatient Based on the indications selected for the patient, the bed status of Inpatient was determined to beMET The following indications were selected as present at the time of evaluation of the patient: - Clinical Indications for Admission to Inpatient Care - Hospital admission is needed for appropriate care of the patient because of 1 or more of the following: - Severe electrolyte abnormalities requiring inpatient care, as indicated by ALL of the following: - Electrolyte abnormality is not at acceptable patient baseline (eg, treatment effect). - Severe abnormality, as indicated by 1 or more of the following: - Potassium less than 3 mEq/L (mmol/L) with severe finding requiring inpatient management (eg, paresis, paralysis, arrhythmia, cardiac conduction disturbance) Additional Information: Potassium 2.9, Lactate 3.6, 2nd degree AV block with Incomplete LBBB, Cardiology Consult AdmissionCare documentation entered by: Héctor Arboleda [facility], 28th edition, Copyright 2023 [facility] All Rights Reserved. [id number]:05:[id number]:00 Solely for purpose of utilization review and payment; not a diagnostic tool * Pt Handout (on AVS) - Buddy Ralph, [facility] - 07/27/2024 2:39 PM EDT [id number] Warfarin Brand Name(s): Coumadin, Jantoven; also available generically IMPORTANT WARNING: Warfarin may cause severe bleeding that can be life-threatening and even cause . Tell your doctor if you have or have ever had a blood or bleeding disorder; bleeding problems, especially in yourstomach or your esophagus (tube from the throat to the stomach), intestines, urinary tract or bladder, or lungs; high blood pressure; heart attack; angina (chest pain or pressure); heart disease; pericarditis (swelling of the lining (sac) around the heart); endocarditis (infection of one or more heart valves); a stroke or ministroke; aneurysm (weakening or tearing of an artery or vein); anemia (low number of red blood cells in the blood); cancer; chronic diarrhea; or kidney, or liver disease. Also tell your doctor if you fall often or have had a recent serious injury or surgery. Bleeding is more likely during warfarin treatment for people over 65 years of age, and it is also more likely during the first month of warfarin treatment. Bleeding is also more likely to occur for people who take high doses of warfarin, or take this medication for a long time. The risk for bleeding while takingwarfarin is also higher for people participating in an activity or sport that may result in seriousinjury. Tell your doctor and pharmacist if you are taking or plan to take any prescription or nonprescription medications, vitamins, nutritional supplements, and herbal or botanical products (See SPECIAL PRECAUTIONS), as some of these products may increase the risk for bleeding while you are takingwarfarin. If you experience any of the following symptoms, call your doctor immediately: pain, swelling, or discomfort, bleeding from a cut that does not stop in the usual amount of time, nosebleeds or bleeding from your gums, coughing up or vomiting blood or material that looks like coffee grounds, unusual bleeding or bruising, increased menstrual flow or vaginal bleeding, pink, red, or dark brown urine, red or tarry black bowel movements, headache, dizziness, or weakness. Some people may respond differently to warfarin based on their heredity or genetic make-up. Your doctor may order a blood test to help find the dose of warfarin that is best for you. Warfarin prevents blood from clotting so it may take longer than usual for you to stop bleeding if you are cut or injured. Avoid activities or sports that have a high risk of causing injury. Call your doctor if bleeding is unusual or if you fall and get hurt, especially if you hit your head. Keep all appointments with your doctor and the laboratory. Your doctor will order a blood test (PT [prothrombin test] reported as INR [international normalized ratio] value) regularly to check your body's response to warfarin. If your doctor tells you to stop taking warfarin, the effects of this medication may last for 2 to 5 days after you stop taking it. Your doctor or pharmacist will give you the top distribution executive's patient information sheet (Medication Guide) when you begin treatment with warfarin and each time you refill your prescription. Read the information carefully and ask your doctor or pharmacist if you have any questions. You can also visit the Food and Drug Administration (FDA) website (https://www.fda.gov/downloads/Drugs/DrugSafety/loy465933.pdf) or the top distribution executive's website to obtain the Medication Guide. Talk to your doctor about the risk(s) of taking warfarin. WHY is this medicine prescribed? Warfarin is used to prevent blood clots from forming or growing larger in your blood and blood vessels. It is prescribed for people with certain types of irregular heartbeat, people with prosthetic (replacement or mechanical) heart valves, and people who have suffered a heart attack. Warfarin is also used to treat or prevent venous thrombosis (swelling and blood clot in a vein) and pulmonary embolism (a blood clot in the lung). Warfarin is in a class of medications called anticoagulants ('bloodthinners'). It works by decreasing the clotting ability of the blood. HOW should this medicine be used? Warfarin comes as a tablet to take by mouth. It is usually taken once a day with or without food. Take warfarin at around the same time every day. Follow the directions on your prescription label carefully, and ask your doctor or pharmacist to explain any part you do not understand. Take warfarin exactly as directed. Do not take more or less of it or take it more often than prescribed by your doctor. Call your doctor immediately if you take more than your prescribed dose of warfarin. Your doctor will probably start you on a low dose of warfarin and gradually increase or decrease your dose based on the results of your blood tests. Make sure you understand any new dosing instructions from your doctor. Continue to take warfarin even if you feel well. Do not stop taking warfarin without talking to your doctor. Are there OTHER USES for this medicine? This medication may be prescribed for other uses; ask your doctor or pharmacist for more information. What SPECIAL PRECAUTIONS should I follow? Before taking warfarin, tell your doctor and pharmacist if you are allergic to warfarin, any other medications, or any of the ingredients in warfarin tablets. Ask your pharmacist or check the Medication Guide for a list of the ingredients. do not take two or more medications that contain warfarin at the same time. Be sure to check with your doctor or pharmacist if you are uncertain if a medication contains warfarin or warfarin sodium. tell your doctor and pharmacist what prescription and nonprescription medications, vitamins, andnutritional supplements you are taking or plan to take, especially acyclovir (Zovirax); allopurinol(Zyloprim); alprazolam (Xanax); antibiotics such as ciprofloxacin (Cipro), clarithromycin (Biaxin, in Prevpac), erythromycin (E.E.S., Eryc, Keith-Tab), nafcillin, norfloxacin (Noroxin), sulfinpyrazone,telithromycin (Ketek), and tigecycline (Tygacil); anticoagulants such as argatroban (Acova), dabigatran (Pradaxa), bivalirudin (Angiomax), desirudin (Iprivask), heparin, and lepirudin (Refludan); antifungals such as fluconazole (Diflucan), itraconazole (Onmel, Sporanox), ketoconazole (Nizoral), miconazole (Monistat), posaconazole (Noxafil), terbinafine (Lamisil), voriconazole (Vfend); antiplatelet medications such as cilostazol (Pletal), clopidogrel (Plavix), dipyridamole (Persantine, in Aggrenox), prasugrel (Effient), and ticlopidine (Ticlid); aprepitant (Emend); aspirin or aspirin-containing products and other nonsteroidal anti-inflammatory drugs such as celecoxib (Celebrex), diclofenac (Flector, Voltaren, in Arthrotec), diflunisal, fenoprofen (Nalfon), ibuprofen (Advil, Motrin), indomethacin (Indocin), ketoprofen, ketorolac, mefenamic acid (Ponstel), naproxen (Aleve, Naprosyn), oxaprozin (Daypro), piroxicam (Feldene), and sulindac (Clinoril); bicalutamide; bosentan; certain antiarrhythmic medications such as amiodarone (Cordarone, Nexterone, Pacerone), mexiletine, and propafenone(Rythmol); certain calcium channel blocking medications such as amlodipine (Norvasc, in Phyllis, Caduet, Exforge, Lotrel, Twynsta), diltiazem (Cardizem, Cartia XT, Dilacor XR, Tiazac) and verapamil (Calan, Isoptin, Verelan, in Tarka); certain medications for asthma such as montelukast (Singulair), zafirlukast (Accolate), and zileuton (Zyflo); certain medications used to treat cancer such as capecitabine (Xeloda), imatinib (Gleevec), and nilotinib (Tasigna); certain medications for cholesterol suchas atorvastatin (Lipitor, in Caduet) and fluvastatin (Lescol); certain medications for digestive disorders such as cimetidine (Tagamet), famotidine (Pepcid), and ranitidine (Zantac); certain medications for human immunodeficiency virus (HIV) infection such as amprenavir, atazanavir (Reyataz), efavirenz (Sustiva), etravirine (Intelence), fosamprenavir (Lexiva), indinavir (Crixivan), lopinavir/ritonavir, nelfinavir (Viracept), ritonavir (Norvir), saquinavir (Invirase), and tipranavir (Aptivus); certain medications for narcolepsy such as armodafinil (Nuvigil) and modafinil (Provigil); certain med ications for seizures such as carbamazepine (Carbatrol, Equetro, Tegretol), phenobarbital, phenytoin (Dilantin, Phenytek), and rufinamide (Banzel); certain medications to treat tuberculosis such as isoniazid (in Rifamate, Rifater) and rifampin (Rifadin, in Rifamate, Rifater); certain selective serotonin reuptake inhibitors (SSRIs) or selective serotonin and norepinephrine reuptake inhibitors (SNRIs) such as citalopram (Celexa), desvenlafaxine (Pristiq), duloxetine (Cymbalta), escitalopram (Lexapro), fluoxetine (Prozac, Sarafem, in Symbyax), fluvoxamine (Luvox), milnacipran (Savella), paroxetine (Paxil, Pexeva), sertraline (Zoloft), venlafaxine (Effexor) corticosteroids such as prednisone; cyclosporine (Neoral, Sandimmune); disulfiram (Antabuse); methoxsalen (Oxsoralen, Uvadex); metronidazole (Flagyl); nefazodone (Serzone), oral contraceptives ( control pills); oxandrolone (Oxandrin); pioglitazone (Actos, in Actoplus Met, Duetact, Oseni); propranolol (Inderal) or vilazodone (Viibryd). Many other medications may also interact with warfarin, so be sure to tell your doctor about all the medications you are taking, even those that do not appear on this list. Do not take any new medications or stop taking any medication without talking to your doctor. tell your doctor and pharmacist what herbal or botanical products you are taking, especially coenzyme Q10 (Ubidecarenone), Echinacea, garlic, Ginkgo biloba, ginseng, goldenseal, and Chas's wort. There are many other herbal or botanical products which might affect your body's response to warfarin. Do not start or stop taking any herbal products without talking to your doctor. tell your doctor if you have or have ever had diabetes. Also tell your doctor if you have an infection, a gastrointestinal illness such as diarrhea, or sprue (an allergic reaction to protein foundin grains that causes diarrhea), or an indwelling catheter (a flexible plastic tube that is placed into the bladder to allow the urine to drain out). Tell your doctor if you are , think you might be , or plan to become while taking warfarin. women should not take warfarin unless they have a mechanical heart valve. Talk to your doctor about the use of effective control while taking warfarin. If you become while taking warfarin, call your doctor immediately. Warfarin may harm the fetus. tell your doctor if you are breast-feeding. if you are having surgery, including dental surgery, or any type of medical or dental procedure,tell the doctor or dentist that you are taking warfarin. Your doctor may tell you to stop taking warfarin before the surgery or procedure or change your dosage of warfarin before the surgery or procedure. Follow your doctor's directions carefully and keep all appointments with the laboratory if your doctor orders blood tests to find the best dose of warfarin for you. ask your doctor about the safe use of alcoholic beverages while you are taking warfarin. tell your doctor if you use tobacco products. Cigarette smoking may decrease the effectiveness of this medication. What SPECIAL DIETARY instructions should I follow? Eat a normal, healthy diet. Some foods and beverages, particularly those that contain vitamin K, can affect how warfarin works for you. Ask your doctor or pharmacist for a list of foods that contain vitamin K. Eat consistent amounts of vitamin K-containing food on a dotq-wd-giha basis. Do not eat large amounts of leafy, green vegetables or certain vegetable oils that contain large amounts of vitamin K. Be sure to talk to your doctor before you make any changes in your diet. Talk to your doctor about eating grapefruit and drinking grapefruit juice while taking this medication. What should I do IF I FORGET to take a dose? Take the missed dose as soon as you remember it, if it is the same day that you were to take the dose. Do not take a double dose the next day to make up for a missed one. Call your doctor if you clyde dose of warfarin. What SIDE EFFECTS can this medicine cause? Warfarin may cause side effects. Tell your doctor if any of these symptoms are severe or do not go away: gas abdominal pain bloating change in the way things taste loss of hair feeling cold or having chills If you experience any of the following symptoms, or those listed in the IMPORTANT WARNING section, call your doctor immediately: hives rash itching difficulty breathing or swallowing swelling of the face, throat, tongue, lips, or eyes hoarseness chest pain or pressure swelling of the hands, feet, ankles, or lower legs fever infection nausea vomiting diarrhea extreme tiredness lack of energy loss of appetite pain in the upper right part of the stomach yellowing of the skin or eyes flu-like symptoms You should know that warfarin may cause necrosis or gangrene ( of skin or other body tissues).Call your doctor immediately if you notice a purplish or darkened color to your skin, skin changes,ulcers, or an unusual problem in any area of your skin or body, or if you have a severe pain that occurs suddenly, or color or temperature change in any area of your body. Call your doctor immediately if your toes become painful or become purple or dark in color. You may need medical care right away to prevent amputation (removal) of your affected body part. Warfarin may cause other side effects. Call your doctor if you have any unusual problems while taking this medication. What should I know about STORAGE and DISPOSAL of this medication? Keep this medication in the container it came in, tightly closed, and out of reach of children. Store it at room temperature and away from excess heat, moisture (not in the bathroom), and light. Unneeded medications should be disposed of in special ways to ensure that pets, children, and otherpeople cannot consume them. However, you should not flush this medication down the toilet. Instead,the best way to dispose of your medication is through a medicine take-back program. Talk to your pharmacist or contact your local garbage/recycling department to learn about take-back programs in your community. See the FDA's Safe Disposal of Medicines website (https://goo.gl/c4Rm4p) for more information if you do not have access to a take-back program. It is important to keep all medication out of sight and reach of children as many containers (such as weekly pill minders and those for eye drops, creams, patches, and inhalers) are not child-resistant and young children can open them easily. To protect young children from poisoning, always lock safety caps and immediately place the medication in a safe location - one that is up and away and out of their sight and reach. https://www.upandaway.org What should I do in case of OVERDOSE? In case of overdose, call the poison control helpline at . Information is also available online at https://www.poisonhelp.org/help. If the victim has collapsed, had a seizure, has trouble breathing, or can't be awakened, immediately call emergency services at 015. Symptoms of overdose may include the following: bloody or red, or tarry bowel movements spitting or coughing up blood heavy bleeding with your menstrual period pink, red, or dark brown urine coughing up or vomiting material that looks like coffee grounds small, flat, round red spots under the skin unusual bruising or bleeding continued oozing or bleeding from minor cuts What OTHER INFORMATION should I know? Carry an identification card or wear a bracelet stating that you take warfarin. Ask your pharmacistor doctor how to obtain this card or bracelet. List your name, medical problems, medications and dosages, and doctor's name and telephone number on the card. Tell all your healthcare providers that you take warfarin. Do not let anyone else take your medication. Ask your pharmacist any questions you have about refilling your prescription. It is important for you to keep a written list of all of the prescription and nonprescription (coob-wdl-bjejwdr) medicines you are taking, as well as any products such as vitamins, minerals, or otherdietary supplements. You should bring this list with you each time you visit a doctor or if you areadmitted to a hospital. It is also important information to carry with you in case of emergencies. This report on medications is for your information only, and is not considered individual patient advice. Because of the changing nature of drug information, please consult your physician or pharmacist about specific clinical use. The [place] [employer] represents that the information provided hereunder was formulated with a reasonable standard of care, and in conformity with professional standards in the field. The [place] [employer] makes no representations or warranties, express or implied, including, but not limited to, any implied warranty of merchantability and/or fitness for a particular purpose, with respect to such information and specifically disclaims all such warranties. Users are advised that decisions regarding drug therapy are complex medical decisions requiring the independent, informed decision of an appropriate health caregivers homecare, and the information is provided for informational purposes only. The entire monograph for a drug should be reviewed for a thorough understanding of the drug's actions, uses and side effects. The [place] [employer] does not endorse or recommend the use of any drug.The information is not a substitute for medical care. [facility] Patient Medication Information?. Copyright, 2023. The [place] [employer], [facility], [address], [place], [place]. All Rights Reserved. Duplication for commercial use must be authorized by [facility]. Selected Revisions: May 03, 2017. [facility] Patient Medication Information?. Copyright, 2023 * Pt Handout (on AVS) - Buddy Ralph RPh - 07/27/2024 2:38 PM EDT Images from the original note were not included. Warfarin - Video Let's take a minute to talk about your medication. This is warfarin, and you should take your dose as directed by your doctor. Warfarin prevents and treats blood clots. To view the video go to this web address: https://bit.ly/2oQtQ4N Or, scan this QR code with your smart phone 2023 [employer]. All Rights Reserved. * Medical Necessity - Milly Wilson RN - 07/26/2024 11:39 PM EDT AdmissionCare Guideline: Urinary Tract Infection (UTI) - OBS, Observation Based on the indications selected for the patient, the bed status of Observation was determined to be MET The following indications were selected as present at the time of evaluation of the patient: - Observation Care Admission Criteria - Observation care is indicated for 1 or more of the following: - Ability to tolerate outpatient treatment regimen uncertain Additional Information: UTI with increased weakness and ambulatory dysfunction AdmissionCare documentation entered by: Milly Wilson [facility] [employer], 28th edition, Copyright 2023 [employer] All Rights Reserved. [id number] Solely for purpose of utilization review and payment; not a diagnostic tool documented in this encounter Plan of Treatment Upcoming Encounters Date Type Department Care Team (Late st Contact Info) Description 07/30/2024 5:10 PM EDT Anticoagulation Pharmacy, [place] [address] [place] [address] [address] Pharmacist1, [facility] [place] [address] [place] [phone] 07/31/2024 5:00 PM EDT Office Visit Family Practice, [place] [address] [phone] Jag Kovacs MD [address] [phone] 08/04/2024 2:45 PM EDT Appointment Radiology, [place] [address] [phone] 08/21/2024 1:30 PM EDT Office Visit Cardiology, [place] [address] [place] [address] Melvina Mensah CRNP [address] [place] [phone] 08/28/2024 6:00 PM EDT Office Visit Family [facility] [place] [address] [facility] [phone] Jag Kovacs MD [address] [place] [address] 09/11/2024 2:00 PM EDT Office Visit Podiatry, [facility] [address] [place] [address] Azul Nye DPM [address] [place] [address] Pending Results Name Type Priority Associated Diagnoses Date /Time CULTURE, URINE, QUANTITATIVE Lab STAT 07/26/2024 11:19 PM EDT EXTRA TUBES Lab Routine 07/28/2024 6: 38 AM EDT EXTRA LAVENDER TOP Lab Routine 2023 6:38 AM EDT Scheduled Orders Name Type Priority Associated Diagnoses Orde r Schedule 3 POSITIONAL BLOOD PRESSURE Procedures STAT One Time for 1 Occurrences starting 07/26/2024 until 07/26/2024 EXTRA TUBES Lab Routine One Time for 1 Occurrences starting 07/28/2024 until 07/28/2024 EXTRA LAVENDER TOP Lab Routine Once f or 1 Occurrences starting 07/28/2024 until 07/28/2024, 1 completed Scheduled Procedures Name Priority Associated Diagnoses Date/Ti me COLONOSCOPY FLEXIBLE PROXIMAL DIAGNOSTIC Recall Special screening for malignant neoplasms, colon GERD (gastroesophageal reflux disease) ESOPHAGOGASTRODUODENOSCOPY ( EGD), FLEXIBLE, TRANSORAL, DIAGNOSTIC Recall Special screening for malignant neoplasms, colon GERD (gastroesophageal reflux disease) Scheduled Referrals Name Type Priority Associated Diagnoses Orde r Schedule PHYSICAL THERAPY REFERRAL OP Referral Within 3 days (urgent) Generalized weakness Fall in home, initial encounter Ordered: 07/28/2024 Health Maintenance Due Date Last Done Comments [...] Procedure Name Priority Date/Time Associated Diagnosis Comments GLUCOSE METER, POINT OF CARE MACARIO 07/28/2024 11:33 AM EDT GLUCOSE METER, POINT OF CARE MAC[place]IO 07/28/2024 7:39 AM EDT BASIC METABOLIC PANEL Routine 07/28/2024 5:42 AM EDT PT INR Routine 07/28/2024 5:42 AM EDT GLUCOSE METER, POINT OF CARE MACARIO 07/27/2024 9:29 PM EDT GLUCOSE METER, POINT OF CARE MAC[place]IO 07/27/2024 4:09 PM EDT PT INR Routine 07/27/2024 1:24 PM EDT GLUCOSE METER, POINT OF CARE MACARIO 07/27/2024 11:44 AM EDT GLUCOSE METER, POINT OF CARE MACARIO 07/27/2024 7:16 AM EDT HEMOGLOBIN A1C Routine 07/27/2024 7:03 AM EDT BASIC METABOLIC PANEL Routine 07/27/2024 7:03 AM EDT CBC Routine 07/27/2024 7:03 AM EDT CULTURE, URINE, QUANTITATIVE STAT 07/26/2024 11:19 PM EDT LACTATE Routine 07/26/2024 10:35 PM EDT TROPONIN T, HIGH SENSITIVITY Routine 07/26/2024 8:06 PM EDT ETHANOL, MEDICAL STAT 07/26/2024 8:06 PM EDT TOXICOLOGY, URINESCREEN W/ CONFIRMATION STAT 07/26/2024 7:27 PM EDT MICROSCOPIC EXAM, URINE STAT 07/26/2024 7:27 PM EDT URINALYSIS, REFLEX TO MICROSCOPIC STAT 07/26/2024 7:27 PM EDT HC ECG TRACING ONLY STAT 07/26/2024 7 :[address] C SPINE WO CONTRAST STAT 7:[address] HEAD/BRAIN WO CONTRAST STAT 07/26/2024 7:15 PM EDT XR CHEST 1 VIEW STAT 07/26/2024 7:13 PM EDT DIFFERENTIAL, AUTOMATED STAT 07/26/2024 7:03 PM EDT TROPONIN T, HIGH SENSITIVITY Routine 07/26/2024 7:03 PM EDT COMPREHENSIVE METABOLIC PANEL STAT 07/26/2024 7:03 PM EDT TYPE AND SCREEN STAT 07/26/2024 7:03 PM EDT CBC STAT 07/26/2024 7:03 PM EDT PT INR STAT 07/26/2024 7:03 PM EDT LACTATE,WHOLE BLOOD STAT 07/26/2024 7 :03 PM EDT CBC STAT 07/26/2024 7:03 PM EDT GLUCOSE METER, POINT OF CARE MACARIO 07/26/2024 6:52 PM EDT documented in this encounter Results * (ABNORMAL) GLUCOSE METER, POINT OF CARE (07/28/2024 11:33 AM EDT) Glucose Meter 213(H) 70 - 120 mg/dL 07/28/2024 11:47 AM EDT [facility] Blood Whole blood specimen / Unknown 07/28/2024 11:33 AM EDT 07/28/2024 11:47 AM EDT Hakan Bose MD LAB POINT OF CARE TE ST DOCKED DEVICE UNSOLICITED RESULTS Performing Organization Address [facility] Co de Phone Number [facility] [address] [place] [address] * (ABNORMAL) GLUCOSE METER, POINT OF CARE (07/28/2024 7:39 AM EDT) Glucose Meter 135(H) 70 - 120 mg/dL 07/28/2024 8:14 AM EDT [facility] Blood Whole blood specimen / Unknown 07/28/2024 7:39 AM EDT 07/28/2024 8:14 AM EDT Hakan Bose MD LAB POINT OF CARE TE ST DOCKED DEVICE UNSOLICITED RESULTS Performing Organization Address [facility] de Phone Number [facility] [address] [place] [phone] * (ABNORMAL) PT INR (07/28/2024 5:42 AM EDT) Prothrombin Time 18.5(H) 11.6 - 15.2 seconds 07/28/2024 6:52 AM EDT [facility] INR 1.5(H) 0.8 - 1.2 07/28/2024 6:52 AM EDT [facility] Blood Venous blood specimen / Unknown Venipuncture / Unknown 07/28/2024 5:42 AM EDT 07/28/2024 6:33 AM EDT Narrative LABORATORY [facility] - 07/28/2024 6:52 AM EDT Warfarin Therapy INR: 2.0-3.0 conventional anticoagulation INR: 2.5-3.5 high intensity anticoagulation Hakan Bose MD LAB BLOOD ORDERABLES Performing Organization Address City/[facility]/ZIP Co de Phone Number LAB[facility]ATORY [facility] [address] [place] [address] * (ABNORMAL) BASIC METABOLIC PANEL (07/28/2024 5:42 AM EDT) BUN 11 6 - 20 mg/dL 07/28/2024 7:03 AM EDT [facility] Creatinine 0.8 0.5 - 1.0 mg/dL 07/28/2024 7:03 AM EDT [facility] Estimated Glomerular Filtration Rate 77 >=60 mL/min 07/28/2024 7:03 AM EDT [facility] Comment:eGFR is calculated b ased on the CKD-EPI 2020 equation. Sodium 140 135 - 146 mmol/L 07/28/2024 7:03 AM EDT LABORATORY GL Potassium 3.3(L) 3.5 - 5.1 mmol/L 07/28/2024 7:03 AM EDT LABORATORY GL Chloride 104 98 - 107 mmol/L 07/28/2024 7:03 AM EDT LABORATORY GL CO2 26 22 - 32 mmol/L 07/28/2024 7:03 AM EDT [facility] Anion Gap 10 7 - 15 mmol/L 07/28/2024 7:03 AM EDT [facility] Glucose 143(H) 70 - 120 mg/dL 07/28/2024 7:03 AM EDT LABORATORY GL Calcium 8.0(L) 8.4 - 10.2 mg/dL 07/28/2024 7:03 AM EDT LAB[facility]AT[facility] Blood Venous blood specimen / Unknown Venipuncture / Unknown 07/28/2024 5:42 AM EDT 07/28/2024 6:33 AM EDT Hakan Bose MD LAB BLOOD ORDERABLES LABORATORY [facility] [address] [place] [address] * (ABNORMAL) GLUCOSE METER, POINT OF CARE (07/27/2024 9:29 PM EDT) Glucose Meter 153(H) 70 - 120 mg/dL 07/27/2024 9:40 PM EDT [facility] Blood Whole blood specimen / Unknown 07/27/2024 9:29 PM EDT 07/27/2024 9:40 PM EDT Hakan Bose MD LAB POINT OF CARE TE ST DOCKED DEVICE UNSOLICITED RESULTS Performing Organization Address [facility] Co de Phone Number [facility] [address] [place] [address] * (ABNORMAL) GLUCOSE METER, POINT OF CARE (07/27/2024 4:09 PM EDT) Glucose Meter 202(H) 70 - 120 mg/dL 07/27/2024 4:33 PM EDT [facility] Blood Whole blood specimen / Unknown 07/27/2024 4:09 PM EDT 07/27/2024 4:33 PM EDT Hakan Bose MD LAB POINT OF CARE TE ST DOCKED DEVICE UNSOLICITED RESULTS Performing Organization Address [facility] de Phone Number [facility] [address] [place] [id number] * (ABNORMAL) PT INR (07/27/2024 1:24 PM EDT) Prothrombin Time 19.7(H) 11.6 - 15.2 seconds 07/27/2024 1:46 PM EDT LABORATORY [facility] INR 1.7(H) 0.8 - 1.2 07/27/2024 1:46 PM EDT LABORATORY [facility] Blood Venous blood specimen / Unknown Venipuncture / Unknown 07/27/2024 1:24 PM EDT 07/27/2024 1:28 PM EDT Narrative LABORATORY [facility] - 07/27/2024 1:46 PM EDT Warfarin Therapy INR: 2.0-3.0 conventional anticoagulation INR: 2.5-3.5 high intensity anticoagulation Hakan Bose MD LAB BLOOD ORDERABLES Performing Organization Address City/[facility] Co de Phone Number LABORATORY [facility] [address] [place] [address] * (ABNORMAL) GLUCOSE METER, POINT OF CARE (07/27/2024 11:44 AM EDT) Glucose Meter 128(H) 70 - 120 mg/dL 07/27/2024 12:07 PM EDT [facility] Blood Whole blood specimen / Unknown 07/27/2024 11:44 AM EDT 07/27/2024 12:07 PM EDT Hakan Bose MD LAB POINT OF CARE TE ST DOCKED DEVICE UNSOLICITED RESULTS [facility] [address] [place] [address] * GLUCOSE METER, POINT OF CARE (07/27/2024 7:16 AM EDT) Glucose Meter 115 70 - 120 mg/dL 07/27/2024 8:03 AM EDT [facility] Blood Whole blood specimen / Unknown 07/27/2024 7:16 AM EDT 07/27/2024 8:03 AM EDT Hakan Bose MD LAB POINT OF CARE TE ST DOCKED DEVICE UNSOLICITED RESULTS Performing Organization Address City/[facility] Co de Phone Number [facility] [address] [place] [address] * (ABNORMAL) HEMOGLOBIN A1C (07/27/2024 7:03 AM EDT) Hemoglobin A1C 6.7(H) 4.0 - 5.6 % 07/27/2024 12:47 PM EDT LABORATORY C Comment:The use of HbA1c to monitor glycemic status is based on normal hemoglobin and HbA composition. This test should not be used in patients with abnormal hemoglobin that affects the half life of the red blood cell or the in vivo glycation rates. Estimated Average Glucose 146(H) <126 mg/dL 07/27/2024 12:47 PM EDT LABORATORY [facility] Blood Venous blood specimen / Unknown Venipuncture / Unknown 07/27/2024 7:03 AM EDT 07/27/2024 7:11 AM EDT Edenilson Sanders PA-C LAB BLOOD ORDERABLES LABORATORY [facility] [address] [place] [address] * (ABNORMAL) BASIC METABOLIC PANEL (07/27/2024 7:03 AM EDT) BUN 15 6 - 20 mg/dL 07/27/2024 8:06 AM EDT LABORATORY [facility] Creatinine 0.7 0.5 - 1.0 mg/dL 07/27/2024 8:06 AM EDT LAB[facility]ATORY [facility] Estimated Glomerular Filtration Rate 82 >=60 mL/min 07/27/2024 8:06 AM EDT LAB[facility]ATORY [facility] Comment:eGFR is calculated b ased on the CKD-EPI 2020 equation. Sodium 141 135 - 146 mmol/L 07/27/2024 8:06 AM EDT LABORATORY [facility] Potassium 2.9(L) 3.5 - 5.1 mmol/L 07/27/2024 8:06 AM EDT LABORATORY [facility] Chloride 103 98 - 107 mmol/L 07/27/2024 8:06 AM EDT LAB[facility]ATORY [facility] CO2 26 22 - 32 mmol/L 07/27/2024 8:06 AM EDT LAB[facility]ATORY [facility] Anion Gap 12 7 - 15 mmol/L 07/27/2024 8:06 AM EDT LABORATORY [facility] Glucose 116 70 - 120 mg/dL 07/27/2024 8:06 AM EDT LABORATORY [facility] Calcium 7.7(L) 8.4 - 10.2 mg/dL 07/27/2024 8:06 AM EDT LABORATORY [facility] Blood Venous blood specimen / Unknown Venipuncture / Unknown 07/27/2024 7:03 AM EDT 07/27/2024 7:11 AM EDT Edenilson Sanders PA-C LAB BLOOD ORDERABLES LABORATORY [address] [address] * (ABNORMAL) CBC (07/27/2024 7:03 AM EDT) WBC 9.97 4.00 - 10.80 K/uL 07/27/2024 7:24 AM EDT LABORATORY [facility] RBC 3.43 3.85 - 5.15 M/uL 07/27/2024 7:24 AM EDT LABORATORY [facility] HGB 10.1(L) 12.0 - 15.3 g/dL 07/27/2024 7:24 AM EDT LABORATORY [facility] HCT 30.4(L) 36.0 - 45.2 % 07/27/2024 7:24 AM EDT LABORATORY [facility] MCV 88.6 81.5 - 97.5 fL 07/27/2024 7:24 AM EDT LABORATORY [facility] MCH 29.4 27.0 - 34.0 pg 07/27/2024 7:24 AM EDT LABORATORY [facility] MCHC 33.2 32.0 - 36.0 g/dL 07/27/2024 7:24 AM EDT LABORATORY [facility] RDW 16.4 11.5 - 15.5 % 07/27/2024 7:24 AM EDT LABORATORY [facility] PLT 216 140 - 400 K/uL 07/27/2024 7:24 AM EDT LABORATORY [facility] MPV 10.4 6.6 - 11.1 fL 07/27/2024 7:24 AM EDT LABORATORY [facility] nRBCs 0 <=0 /100 WBCs 07/27/2024 7:24 AM EDT LABORATORY [facility] Blood Venous blood specimen / Unknown Venipuncture / Unknown 07/27/2024 7:03 AM EDT 07/27/2024 7:11 AM EDT Edenilson Sanders PA-C LAB BLOOD ORDERABLES LABORATORY [facility] [address] [place] [address] * (ABNORMAL) LACTATE (07/26/2024 10:35 PM EDT) Pathologist [facility] Lactate 2.8(H) 0.4 - 2.0 mmol/L 07/26/2024 10:54 PM EDT LABORATORY [facility] Blood Venous blood specimen / Unknown Venipuncture / Unknown 07/26/2024 10:35 PM EDT 07/26/2024 10:37 PM EDT Renato Richardson LAB BLOOD ORDERABLE S LABORATORY [address] [address] * (ABNORMAL) TROPONIN T, HIGH SENSITIVITY (07/26/2024 8:06 PM EDT) Troponin T, High Sensitivity 20(H) <=14 ng/L 07/26/2024 10:25 PM EDT LABORATORY [facility] Blood Venous blood specimen / Unknown 07/26/2024 8:06 PM EDT 07/26/2024 8:09 PM EDT Renato Richardson LAB BLOOD ORDERABLE S Performing Organization Address City/[facility]/ZIP Co de Phone Number LABORATORY [address] [address] * ETHANOL, MEDICAL (07/26/2024 8:06 PM EDT) ETHANOL, MEDICAL Negative Negative 07/26/2024 10:21 PM EDT LABORATORY [facility] Blood Venous blood specimen / Unknown 07/26/2024 8:06 PM EDT 07/26/2024 8:09 PM EDT [facility] BLOOD ORDERABLE S Performing Organization Address City/[facility]/ZIP Co de Phone Number LABORATORY [address] [address] * (ABNORMAL) MICROSCOPIC EXAM, URINE (07/26/2024 7:27 PM EDT) RBC, Urine 50+(A) 0 - 2 /HPF 07/26/2024 9:03 PM EDT LABORATORY [facility] WBC, Urine 50+(A) 0 - 2 /HPF 07/26/2024 9:03 PM EDT LABORATORY [facility] Bacteria, Urine >200(A) 0 - 25 /HPF 07/26/2024 9:03 PM EDT LABORATORY GL Urine Non-blood Collection / Unknown 07/26/2024 7:27 PM EDT 07/26/2024 7:28 PM EDT [facility] LAB URINE ORDERABLE S LABORATORY [facility] [address] [place] [address] * (ABNORMAL) URINALYSIS, REFLEX TO MICROSCOPIC (07/26/2024 7:27 PM EDT) Color, Urine Yellow Light Yellow, Yellow, Dark Yellow 07/26/2024 9:00 PM EDT LABORATORY GL Clarity, Urine Clear Clear 07/26/2024 9:00 PM EDT LABORATORY GL Glucose, Urine Negative Negative mg/dL 07/26/2024 9:00 PM EDT LABORATORY GL Bilirubin, Urine Negative Negative 07/26/2024 9:00 PM EDT LABORATORY [facility] Ketone, Urine Negative Negative mg/dL 07/26/2024 9:00 PM EDT LABORATORY GL Specific [place], Urine 1.019 1.003 - 1.030 07/26/2024 9:00 PM EDT LABORATORY GL Blood, Urine Large(A) Negative 07/26/2024 9:00 PM EDT LABORATORY GL pH, Urine 6.0 5.0 - 7.5 Units 07/26/2024 9:00 PM EDT LABORATORY [facility] Protein, Urine Trace(A) Negative mg/dL 07/26/2024 9:00 PM EDT LABORATORY [facility] Urobilinogen, Urine 0.2 0.2, 1.0 mg/dL 07/26/2024 9:00 PM EDT LABORATORY [facility] Nitrite, Urine Positive(A) Negative 07/26/2024 9:00 PM EDT LABORATORY [facility] Esterase, Urine Moderate(A) Negative 07/26/2024 9:00 PM EDT LABORATORY GL Urine Non-blood Collection / Unknown 07/26/2024 7:27 PM EDT 07/26/2024 7:28 PM EDT [facility] LAB URINE ORDERABLE S Performing Organization Address City/[facility]/ZIP Co de Phone Number LABORATORY [facility] [address] [place] [address] * TOXICOLOGY, URINESCREEN W/ CONFIRMATION (07/26/2024 7:27 PM EDT) [facility] Amphetamines Screen, U Negative Negative 07/26/2024 7:49 PM EDT LABORATORY [facility] Benzodiazepines Screen, U Negative Negative 07/26/2024 7:49 PM EDT LABORATORY [facility] Cannabinoids Screen, U Negative Negative 07/26/2024 7:49 PM EDT LABORATORY [facility] Cocaine Metabolite Screen, U Negative Negative 07/26/2024 7:49 PM EDT LABORATORY [facility] Fentanyl Screen, U Negative Negative 2023 7:49 PM EDT LABORATORY [facility] Hydrocodone Screen, U Negative Negative 07/26/2024 7:49 PM EDT LABORATORY [facility] Methadone Metabolite Screen, U Negative Negative 07/26/2024 7:49 PM EDT LABORATORY [facility] Morphine/Codeine Screen, U Negative Negative 07/26/2024 7:49 PM EDT LABORATORY [facility] Oxycodone Screen, U Negative Negative 07/26 7:49 PM EDT LABORATORY [facility] Urine Non-blood Collection / Unknown 07/26/2024 7:27 PM EDT 07/26/2024 7:28 PM EDT Narrative LABORATORY [facility] - 07/26/2024 7:49 PM EDT Cutoff Concentrations: Drug Level Amphetamines 500 ng/mL Benzodiazepines 100 ng/mL Cannabinoids 50 ng/mL Cocaine Metabolite 150 ng/mL Fentanyl 1 ng/mL Hydrocodone / Hydromorphone 300 ng/mL Methadone Metabolite 100 ng/mL Morphine / Codeine 300 ng/mL Oxycodone / Oxymorphone 100 ng/mL Screening results are presumptive and can only be used for medical purposes. Positive screening results are reflexed to confirmatory testing. Renato [facility] LAB URINE ORDERABLE S Performing Organization Address City/[facility]/ZIP Co de Phone Number LABORATORY [facility] [address] [place] [address] * EKG (07/26/2024 7:22 PM EDT) 07/26/2024 7:22 PM EDT Narrative Procedure Note Vamshi Caal DO - 07/26/2024 7:22 PM EDT REASON FOR STUDY: FALL CONCLUSIONS: Sinus rhythm 2nd degree AV block (Mobitz I) with occasional Prematureventricular complexes Left axis deviation Incomplete left bundle branch block Left ventricular hypertrophy with secondary repolarization abnormality Abnormal ECG When compared with ECG of 10-Jun-2024 23:16, Mobitz type 1 is now present Ventricular Rate: 81 Atrial Rate: 89 QRS Duration: 106 QT/QTc: 376/436 ms P-R-T [place]: 52 : -37 : 87 degrees Renato Richardson DO EKG [facility] * CT C SPINE WO CONTRAST (07/26/2024 7:15 PM EDT) Anatomical Region Laterality Modality Cspine, Spine, Neck, Vertebra Co mputed Tomography 07/26/2024 7:08 PM EDT Impressions 07/26/2024 7:34 PM EDT IMPRESSION: 1. Superficial scalp soft tissue swelling with small cephalohematoma in the high posterior left parietal scalp. No underlying calvarial fracture or acute intracranial pathology. 2. Chronic senescent intracranial findings as above. PROCEDURE INFORMATION: Exam: CT Cervical Spine Without Contrast Exam date and time: 07/26/2024 7:08 PM Age: 84 years old Clinical indication: Injury or trauma; Fall; Blunt trauma (contusions or hematomas); Injury details: Glf. On blood thinner. ; Additional info: Significant trauma with possible severe neurologic injury or neck pain TECHNIQUE: Imaging protocol: Computed tomography of the cervical spine without contrast. Radiation optimization: All CT scans at this facility use at least one of these dose optimization techniques: automated exposure control; mA and/or kV adjustment per patient size (includes targeted exams where dose is matched to clinical indication); or iterative reconstruction. COMPARISON: CT C SPINE WO CONTRAST 06/10/2024 4:40 PM FINDINGS: Bones: Normal craniocervical and atlantoaxial alignment. The odontoid process is intact. There is no evidence of increased density within the spinal canal to suggest hemorrhage. Normal alignment of the cervical spine vertebral bodies and facets without evidence of listhesis or skipped/perched facet. Mild to moderate scattered endplate and facet degenerative changes throughout the cervical spine. No cervical spinal fracture is seen. No aggressive osseous lesion. Mastoid air cells: Visualized mastoid air cells are clear. Prevertebral and retropharyngeal spaces: The prevertebral soft tissues are normal in thickness. Lungs: Visualized lung apices are clear. Soft tissues: The visualized superficial soft tissues have a normal appearance. IMPRESSION: 1. No evidence of a cervical spinal fracture or traumatic malalignment. Mild to moderate cervical spondylosis. THIS DOCUMENT HAS BEEN ELECTRONICALLY SIGNED BY DAVID ACOSTA MD Narrative 07/26/2024 7:34 PM EDT PROCEDURE INFORMATION: Exam: CT Head Without Contrast Exam date and time: 07/26/2024 7:08 PM Age: 84 years old Clinical indication: Injury or trauma; Fall; Blunt trauma (contusions or hematomas); Injury details: Glf. On blood thinner. ; Additional info: Significant trauma with possible severe neurologic injury or neck pain TECHNIQUE: Imaging protocol: Computed tomography of the head without contrast. Radiation optimization: All CT scans at this facility use at least one of these dose optimization techniques: automated exposure control; mA and/or kV adjustment per patient size (includes targeted exams where dose is matched to clinical indication); or iterative reconstruction. COMPARISON: CT C SPINE WO CONTRAST 06/10/2024 4:40 PM FINDINGS: Brain: Chronic encephalomalacia in the high left parietal vertex. There is patchy hypoattenuation in the periventricular white matter. While nonspecific, this is favored to represent chronic small vessel ischemic change. There is mild cerebral volume loss with associated mild prominence of the CSF spaces. No midline shift. No evidence of acute intracranial hemorrhage. No extra-axial fluid collection. No intracranial mass or mass effect. Cerebral ventricles: The ventricles appear enlarged, in proportion to the mild parenchymal volume loss. Paranasal sinuses: Visualized paranasal sinuses are normally aerated and clear throughout. Mastoid air cells: Visualized mastoid air cells are clear. Bones: Osseous calvarium appears intact. No fracture is seen. Soft tissues: There is superficial soft tissue swelling in the posterior left high parietal scalp with small cephalhematoma. Vasculature: There is calcific atherosclerosis within the cavernous carotids. Procedure Note David Acosta MD - 07/26/2024 PROCEDURE INFORMATION: Exam: CT Head Without Contrast Exam date and time: 07/26/2024 7:08 PM Age: 84 years old Clinical indication: Injury or trauma; Fall; Blunt trauma (contusions or hematomas); Injury details: Glf. On blood thinner. ; Additional info: Significant trauma with possible severe neurologic injury or neck pain TECHNIQUE: Imaging protocol: Computed tomography of the head without contrast. Radiation optimization: All CT scans at this facility use at least one ofthese dose optimization techniques: automated exposure control; mA and/or kV adjustment per patient size (includes targeted exams where dose is matchedto clinical indication); or iterative reconstruction. COMPARISON: CT C SPINE WO CONTRAST 06/10/2024 4:40 PM FINDINGS: Brain: Chronic encephalomalacia in the high left parietal vertex. There is patchy hypoattenuation in the periventricular white matter. Whilenonspecific, this is favored to represent chronic small vessel ischemic change. Thereis mild cerebral volume loss with associated mild prominence of the CSFspaces. No midline shift. No evidence of acute intracranial hemorrhage. Noextra-axial fluid collection. No intracranial mass or mass effect. Cerebral ventricles: The ventricles appear enlarged, in proportion to themild parenchymal volume loss. Paranasal sinuses: Visualized paranasal sinuses are normally aerated andclear throughout. Mastoid air cells: Visualized mastoid air cells are clear. Bones: Osseous calvarium appears intact. No fracture is seen. Soft tissues: There is superficial soft tissue swelling in the posteriorleft high parietal scalp with small cephalhematoma. Vasculature: There is calcific atherosclerosis within the cavernouscarotids. IMPRESSION IMPRESSION: 1. Superficial scalp soft tissue swelling with small cephalohematoma inthe high posterior left parietal scalp. No underlying calvarial fracture oracute intracranial pathology. 2. Chronic senescent intracranial findings as above. PROCEDURE INFORMATION: Exam: CT Cervical Spine Without Contrast Exam date and time: 07/26/2024 7:08 PM Age: 84 years old Clinical indication: Injury or trauma; Fall; Blunt trauma (contusions or hematomas); Injury details: Glf. On blood thinner. ; Additional info: Significant trauma with possible severe neurologic injury or neck pain TECHNIQUE: Imaging protocol: Computed tomography of the cervical spine withoutcontrast. Radiation optimization: All CT scans at this facility use at least one ofthese dose optimization techniques: automated exposure control; mA and/or kV adjustment per patient size (includes targeted exams where dose is matchedto clinical indication); or iterative reconstruction. COMPARISON: CT C SPINE WO CONTRAST 06/10/2024 4:40 PM FINDINGS: Bones: Normal craniocervical and atlantoaxial alignment. The odontoidprocess is intact. There is no evidence of increased density within the spinalcanal to suggest hemorrhage. Normal alignment of the cervical spine vertebralbodies and facets without evidence of listhesis or skipped/perched facet. Mild tomoderate scattered endplate and facet degenerative changes throughout the cervical spine. No cervical spinal fracture is seen. No aggressive osseous lesion. Mastoid air cells: Visualized mastoid air cells are clear. Prevertebral and retropharyngeal spaces: The prevertebral soft tissues are normal in thickness. Lungs: Visualized lung apices are clear. Soft tissues: The visualized superficial soft tissues have a normalappearance. IMPRESSION: 1. No evidence of a cervical spinal fracture or traumatic malalignment.Mild to moderate cervical spondylosis. THIS DOCUMENT HAS BEEN ELECTRONICALLY SIGNED BY DAVID ACOSTA MD Renato Richardson RAD CT * CT HEAD/BRAIN WO CONTRAST (07/26/2024 7:15 PM EDT) Anatomical Region Laterality Modality Head Computed Tomogra phy 07/26/2024 7:08 PM EDT Impressions 07/26/2024 7:34 PM EDT IMPRESSION: 1. Superficial scalp soft tissue swelling with small cephalohematoma in the high posterior left parietal scalp. No underlying calvarial fracture or acute intracranial pathology. 2. Chronic senescent intracranial findings as above. PROCEDURE INFORMATION: Exam: CT Cervical Spine Without Contrast Exam date and time: 07/26/2024 7:08 PM Age: 84 years old Clinical indication: Injury or trauma; Fall; Blunt trauma (contusions or hematomas); Injury details: Glf. On blood thinner. ; Additional info: Significant trauma with possible severe neurologic injury or neck pain TECHNIQUE: Imaging protocol: Computed tomography of the cervical spine without contrast. Radiation optimization: All CT scans at this facility use at least one of these dose optimization techniques: automated exposure control; mA and/or kV adjustment per patient size (includes targeted exams where dose is matched to clinical indication); or iterative reconstruction. COMPARISON: CT C SPINE WO CONTRAST 06/10/2024 4:40 PM FINDINGS: Bones: Normal craniocervical and atlantoaxial alignment. The odontoid process is intact. There is no evidence of increased density within the spinal canal to suggest hemorrhage. Normal alignment of the cervical spine vertebral bodies and facets without evidence of listhesis or skipped/perched facet. Mild to moderate scattered endplate and facet degenerative changes throughout the cervical spine. No cervical spinal fracture is seen. No aggressive osseous lesion. Mastoid air cells: Visualized mastoid air cells are clear. Prevertebral and retropharyngeal spaces: The prevertebral soft tissues are normal in thickness. Lungs: Visualized lung apices are clear. Soft tissues: The visualized superficial soft tissues have a normal appearance. IMPRESSION: 1. No evidence of a cervical spinal fracture or traumatic malalignment. Mild to moderate cervical spondylosis. THIS DOCUMENT HAS BEEN ELECTRONICALLY SIGNED BY DAVID ACOSTA MD Narrative 07/26/2024 7:34 PM EDT PROCEDURE INFORMATION: Exam: CT Head Without Contrast Exam date and time: 07/26/2024 7:08 PM Age: 84 years old Clinical indication: Injury or trauma; Fall; Blunt trauma (contusions or hematomas); Injury details: Glf. On blood thinner. ; Additional info: Significant trauma with possible severe neurologic injury or neck pain TECHNIQUE: Imaging protocol: Computed tomography of the head without contrast. Radiation optimization: All CT scans at this facility use at least one of these dose optimization techniques: automated exposure control; mA and/or kV adjustment per patient size (includes targeted exams where dose is matched to clinical indication); or iterative reconstruction. COMPARISON: CT C SPINE WO CONTRAST 06/10/2024 4:40 PM FINDINGS: Brain: Chronic encephalomalacia in the high left parietal vertex. There is patchy hypoattenuation in the periventricular white matter. While nonspecific, this is favored to represent chronic small vessel ischemic change. There is mild cerebral volume loss with associated mild prominence of the CSF spaces. No midline shift. No evidence of acute intracranial hemorrhage. No extra-axial fluid collection. No intracranial mass or mass effect. Cerebral ventricles: The ventricles appear enlarged, in proportion to the mild parenchymal volume loss. Paranasal sinuses: Visualized paranasal sinuses are normally aerated and clear throughout. Mastoid air cells: Visualized mastoid air cells are clear. Bones: Osseous calvarium appears intact. No fracture is seen. Soft tissues: There is superficial soft tissue swelling in the posterior left high parietal scalp with small cephalhematoma. Vasculature: There is calcific atherosclerosis within the cavernous carotids. Procedure Note David Acosta MD - 07/26/2024 PROCEDURE INFORMATION: Exam: CT Head Without Contrast Exam date and time: 07/26/2024 7:08 PM Age: 84 years old Clinical indication: Injury or trauma; Fall; Blunt trauma (contusions or hematomas); Injury details: Glf. On blood thinner. ; Additional info: Significant trauma with possible severe neurologic injury or neck pain TECHNIQUE: Imaging protocol: Computed tomography of the head without contrast. Radiation optimization: All CT scans at this facility use at least one ofthese dose optimization techniques: automated exposure control; mA and/or kV adjustment per patient size (includes targeted exams where dose is matchedto clinical indication); or iterative reconstruction. COMPARISON: CT C SPINE WO CONTRAST 06/10/2024 4:40 PM FINDINGS: Brain: Chronic encephalomalacia in the high left parietal vertex. There is patchy hypoattenuation in the periventricular white matter. Whilenonspecific, this is favored to represent chronic small vessel ischemic change. Thereis mild cerebral volume loss with associated mild prominence of the CSFspaces. No midline shift. No evidence of acute intracranial hemorrhage. Noextra-axial fluid collection. No intracranial mass or mass effect. Cerebral ventricles: The ventricles appear enlarged, in proportion to themild parenchymal volume loss. Paranasal sinuses: Visualized paranasal sinuses are normally aerated andclear throughout. Mastoid air cells: Visualized mastoid air cells are clear. Bones: Osseous calvarium appears intact. No fracture is seen. Soft tissues: There is superficial soft tissue swelling in the posteriorleft high parietal scalp with small cephalhematoma. Vasculature: There is calcific atherosclerosis within the cavernouscarotids. IMPRESSION IMPRESSION: 1. Superficial scalp soft tissue swelling with small cephalohematoma inthe high posterior left parietal scalp. No underlying calvarial fracture oracute intracranial pathology. 2. Chronic senescent intracranial findings as above. PROCEDURE INFORMATION: Exam: CT Cervical Spine Without Contrast Exam date and time: 07/26/2024 7:08 PM Age: 84 years old Clinical indication: Injury or trauma; Fall; Blunt trauma (contusions or hematomas); Injury details: Glf. On blood thinner. ; Additional info: Significant trauma with possible severe neurologic injury or neck pain TECHNIQUE: Imaging protocol: Computed tomography of the cervical spine withoutcontrast. Radiation optimization: All CT scans at this facility use at least one ofthese dose optimization techniques: automated exposure control; mA and/or kV adjustment per patient size (includes targeted exams where dose is matchedto clinical indication); or iterative reconstruction. COMPARISON: CT C SPINE WO CONTRAST 06/10/2024 4:40 PM FINDINGS: Bones: Normal craniocervical and atlantoaxial alignment. The odontoidprocess is intact. There is no evidence of increased density within the spinalcanal to suggest hemorrhage. Normal alignment of the cervical spine vertebralbodies and facets without evidence of listhesis or skipped/perched facet. Mild tomoderate scattered endplate and facet degenerative changes throughout the cervical spine. No cervical spinal fracture is seen. No aggressive osseous lesion. Mastoid air cells: Visualized mastoid air cells are clear. Prevertebral and retropharyngeal spaces: The prevertebral soft tissues are normal in thickness. Lungs: Visualized lung apices are clear. Soft tissues: The visualized superficial soft tissues have a normalappearance. IMPRESSION: 1. No evidence of a cervical spinal fracture or traumatic malalignment.Mild to moderate cervical spondylosis. THIS DOCUMENT HAS BEEN ELECTRONICALLY SIGNED BY DAVID ACOSTA MD Renato Richardson DO RAD CT * XR CHEST 1 VIEW (07/26/2024 7:13 PM EDT) Anatomical Region Laterality Modality Chest Digital Radiogra phy 07/26/2024 7:01 PM EDT Impressions 07/26/2024 7:35 PM EDT IMPRESSION: No acute pulmonary disease. THIS DOCUMENT HAS BEEN ELECTRONICALLY SIGNED BY SANDI ESPINOZA DO Narrative 07/26/2024 7:35 PM EDT PROCEDURE INFORMATION: Exam: XR Chest Exam date and time: 07/26/2024 7:01 PM Age: 84 years old Clinical indication: Other: Trauma protocol TECHNIQUE: Imaging protocol: Radiologic exam of the chest. Views: 1 view. COMPARISON: CR XR CHEST 1 VIEW 06/10/2024 8:32 PM FINDINGS: Lungs: The lungs are adequately expanded. No focal consolidations or pulmonary edema. Pleural spaces: No pleural effusions or pneumothorax. Heart/Mediastinum: No cardiomegaly. Loop recorder overlies the cardiac silhouette. Bones/joints: No acute fractures. Procedure Note Sandi Espinoza DO - 07/26/2024 PROCEDURE INFORMATION: Exam: XR Chest Exam date and time: 07/26/2024 7:01 PM Age: 84 years old Clinical indication: Other: Trauma protocol TECHNIQUE: Imaging protocol: Radiologic exam of the chest. Views: 1 view. COMPARISON: CR XR CHEST 1 VIEW 06/10/2024 8:32 PM FINDINGS: Lungs: The lungs are adequately expanded. No focal consolidations orpulmonary edema. Pleural spaces: No pleural effusions or pneumothorax. Heart/Mediastinum: No cardiomegaly. Loop recorder overlies the cardiac silhouette. Bones/joints: No acute fractures. IMPRESSION IMPRESSION: No acute pulmonary disease. THIS DOCUMENT HAS BEEN ELECTRONICALLY SIGNED BY SANDI ESPINOZA DO [facility] RADIOLOGY ([facility]) * DIFFERENTIAL, AUTOMATED (07/26/2024 7:03 PM EDT) WBC 9.85 4.00 - 10.80 K/uL 07/26/2024 7:17 PM EDT LABORATORY [facility] Neutrophils % 65.0 40.0 - 75.0 % 07/26/2024 7:17 PM EDT LAB[facility] Lymphocytes % 21.4 18.0 - 42.0 % 07/26/2024 7:17 PM EDT LAB[facility] Monocytes % 8.2 1.0 - 11.0 % 07/26/2024 7:17 PM EDT LAB[facility] Eosinophils % 4.5 0.0 - 6.0 % 07/26/2024 7:17 PM EDT LAB[facility] Basophils % 0.4 0.0 - 2.0 % 07/26/2024 7:17 PM EDT LAB[facility] Immature Granulocytes % 0.5 0.0 - 2.0 % 07/26/2024 7:17 PM EDT LABORATORY GL Absolute Neutrophils 6.40 1.80 - 7.70 K/uL 07/26/2024 7:17 PM EDT LAB[facility]ATORY [facility] Absolute Lymphocytes 2.11 1.00 - 4.80 K/ul 07/26/2024 7:17 PM EDT LAB[facility]ATORY [facility] Absolute Monocytes 0.81 0.00 - 1.10 K/uL 07/26/2024 7:17 PM EDT LABORATORY GL Absolute Eosinophils 0.44 0.00 - 0.70 K/uL 07/26/2024 7:17 PM EDT LABORATORY GL Absolute Basophils 0.04 0.00 - 0.20 K/uL 07/26/2024 7:17 PM EDT LABORATORY GL Absolute Immature Granulocytes 0.05 0.00 - 0.20 K/uL 07/26/2024 7:17 PM EDT LABORATORY GL Blood Venous blood specimen / Unknown Venipuncture / Unknown 07/26/2024 7:03 PM EDT 07/26/2024 7:12 PM EDT Renato Richardson LAB BLOOD ORDERABLE S LABORATORY [address] [address] * (ABNORMAL) CBC (07/26/2024 7:03 PM EDT) Pathologist [facility] WBC 9.85 4.00 - 10.80 K/uL 07/26/2024 7:17 PM EDT LABORATORY [facility] RBC 3.92 3.85 - 5.15 M/uL 07/26/2024 7:17 PM EDT LABORATORY GL HGB 11.5(L) 12.0 - 15.3 g/dL 07/26/2024 7:17 PM EDT LABORATORY GL HCT 36.0 36.0 - 45.2 % 07/26/2024 7:17 PM EDT LABORATORY [facility] MCV 91.8 81.5 - 97.5 fL 07/26/2024 7:17 PM EDT LABORATORY [facility] MCH 29.3 27.0 - 34.0 pg 07/26/2024 7:17 PM EDT LABORATORY [facility] MCHC 31.9 32.0 - 36.0 g/dL 07/26/2024 7:17 PM EDT LABORATORY [facility] RDW 17.0 11.5 - 15.5 % 07/26/2024 7:17 PM EDT LABORATORY [facility] PLT 284 140 - 400 K/uL 07/26/2024 7:17 PM EDT LABORATORY [facility] MPV 10.5 6.6 - 11.1 fL 07/26/2024 7:17 PM EDT LABORATORY [facility] nRBCs 0 <=0 /100 WBCs 07/26/2024 7:17 PM EDT LABORATORY [facility] Blood Venous blood specimen / Unknown Venipuncture / Unknown 07/26/2024 7:03 PM EDT 07/26/2024 7:[address] [facility] BLOOD ORDERABLE S Performing Organization Address City/[facility]/ZIP Co de Phone Number LABORATORY [address] [address] * (ABNORMAL) TROPONIN T, HIGH SENSITIVITY (07/26/2024 7:03 PM EDT) [facility] Troponin T, High Sensitivity 18(H) <=14 ng/L 07/26/2024 7:42 PM EDT LABORATORY [facility] Comment: Result may be falsely decreased due to hemolysis. Result may be falsely decreased due to hemolysis. Blood Venous blood specimen / Unknown Venipuncture / Unknown 07/26/2024 7:03 PM EDT 07/26/2024 7:12 PM EDT Renato [facility] LAB BLOOD ORDERABLE S LABORATORY [address] [id number] * TYPE AND SCREEN (07/26/2024 7:03 PM EDT) ABO O 07/26/2024 8:05 PM EDT LABORATORY [facility] BLOOD BANK Rh Negative 07/26/2024 8:05 PM EDT LABORATORY [facility] BLOOD BANK Red Blood Cell Antibody Screen Negative 07/26/2024 8:05 PM EDT LABORATORY [facility] BLOOD BANK Specimen Expiration Date 07/29/2024 23:59 07/26/2024 8:05 PM EDT LABORATORY [facility] BLOOD BANK Blood Venous blood specimen / Unknown Venipuncture / Unknown 07/26/2024 7:03 PM EDT 07/26/2024 7:11 PM EDT Renato [facility] BLOOD BANK TEST ORDERABLES Performing Organization Address [facility] Co de Phone Number LABORATORY [facility] BLOOD BANK [address] [place] [address] * (ABNORMAL) PT INR (07/26/2024 7:03 PM EDT) Prothrombin Time 20.0(H) 11.6 - 15.2 seconds 07/26/2024 7:30 PM EDT LABORATORY [facility] INR 1.7(H) 0.8 - 1.2 07/26/2024 7:30 PM EDT LABORATORY [facility] Blood Venous blood specimen / Unknown Venipuncture / Unknown 07/26/2024 7:03 PM EDT 07/26/2024 7:11 PM EDT Narrative LABORATORY [facility] - 07/26/2024 7:30 PM EDT Warfarin Therapy INR: 2.0-3.0 conventional anticoagulation INR: 2.5-3.5 high intensity anticoagulation [facility] LAB BLOOD ORDERABLE S Performing Organization Address City/[facility]/ZIP Co de Phone Number LABORATORY [address] [address] * (ABNORMAL) LACTATE,WHOLE BLOOD (07/26/2024 7:03 PM EDT) Lactate, Whole Blood 3.6(H) 0.4 - 2.0 mmol/L 07/26/2024 7:14 PM EDT LABORATORY GL Blood Venous blood specimen / Unknown Venipuncture / Unknown 07/26/2024 7:03 PM EDT 07/26/2024 7:10 PM EDT Renato Richardson DO LAB BLOOD ORDERABLE S LABORATORY [address] [address] * (ABNORMAL) COMPREHENSIVE METABOLIC PANEL (07/26/2024 7:03 PM EDT) BUN 21(H) 6 - 20 mg/dL 07/26/2024 7:40 PM EDT LABORATORY GL Creatinine 0.8 0.5 - 1.0 mg/dL 07/26/2024 7:40 PM EDT LABORATORY GL Estimated Glomerular Filtration Rate 76 >=60 mL/min 07/26/2024 7:40 PM EDT LAB[facility]ORY [facility] Comment:eGFR is calculated b ased on the CKD-EPI 2020 equation. Sodium 140 135 - 146 mmol/L 07/26/2024 7:40 PM EDT LABORATORY [facility] Potassium 07/26/2024 7:40 PM EDT LAB[facility] Comment:Specimen too hemolyz ed. Reorder if needed. Chloride 100 98 - 107 mmol/L 07/26/2024 7:40 PM EDT LAB[facility]ATORY [facility] CO2 26 22 - 32 mmol/L 07/26/2024 7:40 PM EDT LAB[facility]ORY [facility] Anion Gap 14 7 - 15 mmol/L 07/26/2024 7:40 PM EDT LAB[facility]ATORY [facility] Glucose 229(H) 70 - 120 mg/dL 07/26/2024 7:40 PM EDT LAB[facility]ATORY [facility] Albumin 3.9 3.8 - 5.0 g/dL 07/26/2024 7:40 PM EDT LABORATORY [facility] AST 07/26/2024 7:40 PM EDT LAB[facility] Comment:Specimen too hemolyz ed. Reorder if needed. Alkaline Phosphatase 69 35 - 130 U/L 07/26/2024 7:40 PM EDT LAB[facility] Comment:Results may be false ly elevated due to hemolysis. Bilirubin, Total 0.4 <=1.2 mg/dL 07/26/2024 7:40 PM EDT LAB[facility]ATORY [facility] Calcium 8.2(L) 8.4 - 10.2 mg/dL 07/26/2024 7:40 PM EDT LAB[facility]ORY [facility] Protein 7.3 6.0 - 8.3 g/dL 07/26/2024 7:40 PM EDT LAB[facility]ORY [facility] ALT 21 10 - 35 U/L 07/26/2024 7:40 PM EDT LAB[facility] Comment:Results may be false ly elevated due to hemolysis. Blood Venous blood specimen / Unknown Venipuncture / Unknown 07/26/2024 7:03 PM EDT 07/26/2024 7:12 PM EDT Renato Richardson DO LAB BLOOD ORDERABLE S Performing Organization Address City/[facility]/ZIP Co de Phone Number LABORATORY [facility] [address] [place] [address] * (ABNORMAL) GLUCOSE METER, POINT OF CARE (07/26/2024 6:52 PM EDT) Glucose Meter 199(H) 70 - 120 mg/dL 07/26/2024 6:54 PM EDT [facility] Blood Whole blood specimen / Unknown 07/26/2024 6:52 PM EDT 07/26/2024 6:54 PM EDT No Physician Data Unknown LAB POINT OF C ARE TEST DOCKED DEVICE UNSOLICITED RESULTS Performing Organization Address City/[facility]/ZIP Co de Phone Number [facility] [address] [place] [address] documented in this encounter Visit Diagnoses Diagnosis Complicated UTI (urinary tract infection)- Primary Urinary tract infection, site not specified Fall Unspecified fall UTI (urinary tract infection) Urinary tract infection, site not specified Generalized weakness Other malaise and fatigue Chest pain Chest pain, unspecified Fall in home, initial encounter Type 2 diabetes mellitus with hemoglobin A1c goal of less than 8.0% (HCC) Hemiplegia, post-stroke (HCC) Hemiplegia affecting unspecified side, late effect of cerebrovascular disease Acquired hypothyroidism Unspecified hypothyroidism Paroxysmal atrial fibrillation (HCC) Atrial fibrillation HTN, goal below 140/90 Unspecified essential hypertension Gastroesophageal reflux disease with esophagitis Ambulatory dysfunction Fall at home Unspecified fall Second degree AV block Other second degree atrioventricular block documented in this encounter Administered Medications Inactive Administered Medications - up to 3 most recent administrations Medication Order MAR Action Action Date Dose Rate Site Acetaminophen (Ofirmev) inj 1,000 mg 1,000 mg, Intravenous, ONCE, 1 dose, On 07/26/24 at 1945, Administer over 15 Minutes, Administer undiluted over 15 minutes! NOTE: Maximum of 4000 mg per 24 hours of acetaminophen from all acetaminophen containing products., Indication: Patient is strictly NPO New Bag 07/26/2024 7:32 PM EDT 1,000 mg 400 mL/hr Acetaminophen (Tylenol) tab 650 mg 650 mg, Oral, Q6H PRN Pain, Mild, Fever >38C(100.5F), Starting on Sun07/26/24 at 2328, Until Sun07/28/24 at 2032, Maximum of 4 grams (4000 mg) per day. Given 07/27/2024 4:14 PM EDT 650 mg Allopurinol (Zyloprim) tab 200 mg 200 mg, Oral, Daily(AM), First dose on Sun07/27/24 at 0900, Until Discontinued Given 07/28/2024 9:48 AM EDT 200 mg Given 07/27/2024 9:06 AM EDT 200 mg atorvaSTATin (Lipitor) tab 80 mg 80 mg, Oral, Q1700, First dose on 07/27/24 at 1700, Until Discontinued Given 07/27/2024 4:14 PM EDT 80 mg Bisacodyl (Dulcolax) supp 10 mg 10 mg, Rectal, DAILY PRN Constipation, Starting on Sun07/29/24 at 2328, Until Sun07/28/24 at 2032, Administer if no bowel movement within past 72 hours and patient unable to take oral medications. Bisacodyl (Dulcolax) tab 5 mg 5 mg, Oral, DAILY PRN Constipation, Starting on Sun07/29/24 at 2328, Until Sun07/28/24 at 2032, Administer in addition to polyethylene glycol and senna-docusate if no bowel movement in past 72 hours. cefTRIAXone in dextrose (Rocephin) IVPB 1 g IV Piggyback, 1 g, ONCE, 1 dose, On 07/26/24 at 2200, Administer over 30 Minutes New Bag 07/26/2024 9:30 PM EDT 1 g 100 mL/hr cefTRIAXone in dextrose (Rocephin) IVPB 1 g IV Piggyback, 1 g, Q24H, 4 doses, First dose on 07/27/24 at 2200, Last dose on Sun07/30/24 at 2200, Administer over 30 Minutes New Bag 07/27/2024 9:47 PM EDT 1 g 100 mL/hr CYANOCOBALAMIN (vitamin B-12) tab 1,000 mcg 1,000 mcg, Oral, Daily(AM), First dose on 07/27/24 at 0900, Until Discontinued Given 07/28/2024 9:47 AM EDT 1,000 mcg Given 07/27/2024 9:06 AM EDT 1,000 mcg dextrose 50% inj 25 mL 25 mL, IV Push, PRN Hypoglycemia, Other, For blood glucose 54 - 69 mg/dL or 70 - 100 mg/dL with symptoms AND patient is unresponsive, NPO, OR unable to swallow, Starting on 07/27/24 at 0050, Until 07/28/24 at 2032, Administer IV. Recheck blood glucose after 15 minutes. Notify provider. dextrose 50% inj 50 mL 50 mL, IV Push, PRN Hypoglycemia, Other, For blood glucose below 54 mg/dL AND patient unresponsive, NPO, OR unable to swallow, Starting on 07/27/24 at 0050, Until Sun07/28/24 at 2032, Administer IV. Recheck blood glucose in 15 minutes. Notify provider. Docusate Sodium (Colace) cap 100 mg 100 mg, Oral, BID (.AM/PM), First dose (after last modification) on 07/27/24 at 0100, Until Discontinued, For oral administration ONLY, if route of administration is other than oral and alternative product must be ordered. Gabapentin (Neurontin) cap 600 mg 600 mg, Oral, BID (.AM/PM), First dose on 07/27/24 at 0900, Until Discontinued Given 07/28/2024 9:48 AM EDT 600 mg Given 07/27/2024 9:35 PM EDT 600 mg Given 07/27/2024 9:06 AM EDT 600 mg glucagon (Glucagen) inj 1 mg 1 mg, Intramuscular, PRN Hypoglycemia, Other, If patient is unresponsive, or NPO and has no IV access, Starting on Sun07/27/24 at 0050, Until Sun07/28/24 at 2032, NPO and no IV access with either 1) blood glucose less than 100 mg/dL and symptomatic OR 2) blood glucose less than 70 mg/dL and asymptomatic Glucose (Glutose 15) 40 % gel 15 g of glucose 15 g of glucose, Oral, PRN Hypoglycemia (low sugar), Other, For blood glucose 54 - 69 mg/dL or 70 - 100 mg/dL with symptoms AND patient alert WITH difficulty chewing/swallowing, Starting on Sun07/27/24 at 0050, Until Sun07/28/24 at 2032, Administer gel. Recheck blood glucose after 15 minutes. Notify provider. 37.5 gram tube = 15 grams glucose = 1 each Glucose (Glutose 15) 40 % gel 30 g of glucose 30 g of glucose, Oral, PRN Hypoglycemia (low sugar), Other, For blood glucose below 54 mg/dL AND patient alert WITH difficulty chewing/swallowing, Starting on Sun07/27/24 at 0050, Until Sun07/28/24 at 2032, Administer gel. Recheck blood glucose after 15 minutes. Notify provider. 37.5 gram tube = 15 grams glucose = 1 each glucose chew tab 16 g 16 g, Oral, PRN Hypoglycemia, Other, For blood glucose 54 - 69 mg/dL or 70 - 100 mg/dL with symptoms and patient alert without difficulty chewing/swallowing., Starting on Sun07/27/24 at 0050, Until Sun07/28/24 at 2032 hydroCHLOROthiazide cap 12.5 mg 12.5 mg, Oral, Daily(AM), First dose on Sun07/27/24 at 0900, Until Discontinued Given 07/28/2024 9:47 AM EDT 12.5 mg Given 07/27/2024 9:06 AM EDT 12.5 mg insulin aspart (NovoLOG) inj Subcutaneous, W/MEALS AND HS, First dose (after last modification) on Sun07/27/24 at 0130, Until Discontinued, LOW DOSE (Elderly insulin sensitive patient): Sliding Scale Correctional insulin may be given if the patient is NPO. Dose based on standard build from Insulin Calculator. Do not modify insulin doses in administration instructions!, Glucose less than 70 instructions: Obtain STAT lab blood glucose and call covering provider., Glucose 80-150 (units): 0, Glucose 151-200 (units): 1, Glucose 201-250 (units): 2, Glucose 251-300 (units): 3, Glucose greater than 300 (units): 4, Glucose greater than 300 instructions: Give suggested insulin dose and call covering provider. Given 07/27/2024 4:14 PM EDT 2 Units Arm Left Upper losartan (Cozaar) tab 25 mg 25 mg, Oral, Daily(AM), First dose on 07/27/24 at 0900, Until Discontinued Given 07/28/2024 9:47 AM EDT 25 mg Given 07/27/2024 9:06 AM EDT 25 mg Metoprolol Tartrate (Lopressor) tab 12.5 mg 12.5 mg, Oral, BID (.AM/PM), First dose (after last modification) on 07/28/24 at 2100, Until Discontinued, Hold for HR less than 60 or SBP below 100 and notify service if dose is held Metoprolol Tartrate (Lopressor) tab 25 mg 25 mg, Oral, BID (.AM/PM), First dose (after last modification) on Protivin 07/27/24 at 0115, Until Discontinued, Hold for HR less than 60 or SBP below 100 and notify service if dose is held Given 07/28/2024 9:47 AM EDT 25 mg Given 07/27/2024 9:35 PM EDT 25 mg Given 07/27/2024 9:06 AM EDT 25 mg NSS 0.9% 500 mL bolus infusion Peripheral IV, at 500 mL/hr Administer over 60 Minutes, Administer entire volume within 60 minutes or less., ONCE, 1 dose, On 07/26/24 at 2030 New Bag 07/26/2024 8:10 PM EDT 500 mL 500 mL/hr omeprazole (PriLOSEC) cap 40 mg 40 mg, Oral, HS, First dose on 07/27/24 at 2200, Until Discontinued Given 07/27/2024 9:35 PM EDT 40 mg oxygen GAS Inhalation, OXYGEN, First dose on 07/26/24 at 1930, Until Discontinued, Device/Managed by: Low Flow Device, Goal SPO2 (%): 94 or greater, Starting Device: Nasal Cannula, Initial Flow Rate (LPM): 2, Lowest Support: Nasal Cannula: Flow 0-6 LPM. Titrate up/down by 1 LPM., Titration Interval: Q2 minutes and as needed., Notify Provider: For sudden DECREASE in resting SPO2 to less than 85% and when escalating delivery device., Wean patient off Oxygen when the oxygen saturation is greater than or equal to 93% Polyethylene Glycol 3350 (Miralax) oral powder 17 g 17 g (1 Packet), Oral, DAILY PRN Constipation, Starting on Sun07/26/24 at 2328, Until 07/28/24 at 2032, Administer if no bowel movement within past 24 hours. potassium chloride ER tab 10 mEq 10 mEq, Oral, Daily(AM), First dose on Protivin 07/27/24 at 0900, Until Discontinued Given 07/27/2024 9:11 AM EDT 10 mEq potassium chloride ER tab 30 mEq 30 mEq, Oral, Q1H, First dose on Protivin 07/27/24 at 1000, Last dose on Protivin 07/27/24 at 1100, For 2 doses, This med should NOT be Crushed or Chewed Given 07/27/2024 12:04 PM EDT 30 mEq Given 07/27/2024 9:41 AM EDT 30 mEq potassium chloride ER tab 40 mEq 40 mEq, Oral, Daily(AM), First dose (after last modification) on Sun07/28/24 at 0900, Until Discontinued Given 07/28/2024 9:47 AM EDT 40 mEq senna-docusate (Senokot-S) 1 Tablet 1 Tablet, Oral, BID PRN Constipation, Starting on 07/28/24 at 2328, Until Sun07/28/24 at 2032, Administer in addition to polyethylene glycol if no bowel movement within past 48 hours. sodium chloride 0.9 % flush peripheral matthew 3 mL 3 mL, IV Push, QSHIFT, First dose on Protivin 07/27/24 at 0000, Until Discontinued, Do not flush if lock, PICC, or central line not in place; IV infusing or unable to flush. Given 07/28/2024 8:00 AM EDT 3 mL Given 07/28/2024 12:00 AM EDT 3 mL Given 07/27/2024 4:00 PM EDT 3 mL warfarin check daily dose (PHARMACIST MANAGED) [id number], First dose on 07/27/24 at 1500, Until Discontinued, Routine, Contact the pharmacy if there is not a warfarin dose entered by 1500 and document with whom it was discussed. Warfarin Sodium (Coumadin) tab 8 mg 8 mg, Oral, QPM-1999, First dose on 07/27/24 at 1999, Last dose on 07/27/24 at 1999, For 1 day, WASTE INFO: Return packaging and waste medication in zip lock bag to pharmacy - PB container. Given 07/27/2024 9:34 PM EDT 8 mg Warfarin Sodium (Coumadin) tab 8 mg 8 mg, Oral, QPM-1999, First dose on Sun07/28/24 at 1999, Last dose on Sun07/28/24 at 1999, For 1 day, WASTE INFO: Return packaging and waste medication in zip lock bag to pharmacy - PB container. documented in this encounter Active and Recently Administered Medications Times are shown in EDT. Scheduled Medication Order 07/26/2024 07/27/2024 07/28/2024 Acetaminophen (Ofirmev) inj 1,000 mg (COMPLETED) 1,000 mg, Intravenous, ONCE, 1 dose, On 07/26/24 at 1945, Administer over 15 Minutes, Administer undiluted over 15 minutes! NOTE: Maximum of 4000 mg per 24 hours of acetaminophen from all acetaminophen containing products., Indication: Patient is strictly NPO 193 (New Bag - Provider: Jag Sanches, KARINA)2009 (Stopped - Provider: Jag Sanches RN) Allopurinol (Zyloprim) tab 200 mg 200 mg, Oral, Daily(AM), First dose on 07/27/24 at 0900, Until Discontinued 09 (Given - Provider: Charo Villatoro, KARINA) 0948 (Given - Provider: Gabi Gaviria RN) atorvaSTATin (Lipitor) tab 80 mg 80 mg, Oral, Q1700, First dose on 07/27/24 at 1700, Until Discontinued 1614 (Given - Provider: Charo Villatoro, KARINA) cefTRIAXone in dextrose (Rocephin) IVPB 1 g (COMPLETED) IV Piggyback, 1 g, ONCE, 1 dose, On 07/26/24 at 2200, Administer over 30 Minutes 2129 (New Bag - Provider: Jag Sanches, KARINA)2216 (Stopped - Provider: Jag Sanches RN) cefTRIAXone in dextrose (Rocephin) IVPB 1 g IV Piggyback, 1 g, Q24H, 4 doses, First dose on 07/27/24 at 2200, Last dose on Sun07/30/24 at 2200, Administer over 30 Minutes 2146 (New Bag - Provider: Dona Dorado RN)2216 (Stopped - Provider: Gabi Gaviria, KARINA) CYANOCOBALAMIN (vitamin B-12) tab 1,000 mcg 1,000 mcg, Oral, Daily(AM), First dose on 07/27/24 at 0900, Until Discontinued 905 (Given - Provider: Charo Villatoro RN) 946 (Given - Provider: Gabi Gaviria RN) Docusate Sodium (Colace) cap 100 mg 100 mg, Oral, BID (.AM/PM), First dose (after last modification) on 07/27/24 at 0100, Until Discontinued, For oral administration ONLY, if route of administration is other than oral and alternative product must be ordered. 0100 (Not Given - Provider: Srinivas Hopkins LPN - Reason: Refused-Notify Provider - Comment: provider notified)905 (Not Given - Provider: Charo Villatoro RN - Reason: Refused-Notify Provider)2099 (Not Given - Provider: Dona Dorado RN - Reason: Refused-Notify Provider) 946 (Not Given - Provider: Gabi Gaviria RN - Reason: Refused-Notify Provider) Gabapentin (Neurontin) cap 600 mg 600 mg, Oral, BID (.AM/PM), First dose on 07/27/24 at 0900, Until Discontinued 905 (Given - Provider: Charo Villatoro RN)2134 (Given - Provider: Dona Dorado RN) 947 (Given - Provider: Gabi Gaviria RN) hydroCHLOROthiazide cap 12.5 mg 12.5 mg, Oral, Daily(AM), First dose on 07/27/24 at 0900, Until Discontinued 0906 (Given - Provider: Charo Villatoro RN) 0947 (Given - Provider: Gabi Gaviria RN) insulin aspart (NovoLOG) inj Subcutaneous, W/MEALS AND HS, First dose (after last modification) on 07/27/24 at 0130, Until Discontinued, LOW DOSE (Elderly insulin sensitive patient): Sliding Scale Correctional insulin may be given if the patient is NPO. Dose based on standard build from Insulin Calculator. Do not modify insulin doses in administration instructions!, Glucose less than 70 instructions: Obtain STAT lab blood glucose and call covering provider., Glucose 80-150 (units): 0, Glucose 151-200 (units): 1, Glucose 201-250 (units): 2, Glucose 251-300 (units): 3, Glucose greater than 300 (units): 4, Glucose greater than 300 instructions: Give suggested insulin dose and call covering provider. 0130 (Not Given - Provider: Srinivas Hopkins LPN - Reason: Refused-Notify Provider - Comment: provider notified)0800 (No Insulin - Provider: Charo Villatoro RN - Reason: Parameter(s) Not Met)1200 (No Insulin - Provider: Charo Villatoro RN - Reason: Parameter(s) Not Met)1614 (Given - Provider: Charo Villatoro RN)2200 (Not Given - Provider: Dona Dorado RN - Reason: Refused-Notify Provider) 0800 (No Insulin - Provider: Gabi Gaviria RN - Reason: Parameter(s) Not Met)1200 (Not Given - Provider: Gabi Gaviria RN - Reason: Refused-Notify Provider) Levothyroxine Sodium (Levoxyl) tab 125 mcg 125 mcg, Oral, [id number], First dose on 07/27/24 at 0630, Until Discontinued 0630 (Not Given - Provider: Srinivas Hopkins LPN - Reason: Other- Please add reason in Comments - Comment: unavailable/home med) 0630 (Not Given - Provider: rAlene Vuong RN - Reason: Refused-Notify Provider) losartan (Cozaar) tab 25 mg 25 mg, Oral, Daily(AM), First dose on 07/27/24 at 0900, Until Discontinued 09 (Given - Provider: Charo Villatoro RN) 0947 (Given - Provider: Gabi Gaviria, KARINA) Metoprolol Tartrate (Lopressor) tab 12.5 mg 12.5 mg, Oral, BID (.AM/PM), First dose (after last modification) on 07/28/24 at 2100, Until Discontinued, Hold for HR less than 60 or SBP below 100 and notify service if dose is held Metoprolol Tartrate (Lopressor) tab 25 mg (CANCELED) 25 mg, Oral, BID (.AM/PM), First dose (after last modification) on Protivin 07/27/24 at 0115, Until Discontinued, Hold for HR less than 60 or SBP below 100 and notify service if dose is held 0126 (Given - Provider: Srinivas Hopkins LPN)905 (Given - Provider: Charo Villatoro, KARINA)2134 (Given - Provider: Dona Dorado, KARINA) 0947 (Given - Provider: Gabi Gaviria, KARINA) NSS 0.9% 500 mL bolus infusion (COMPLETED) Peripheral IV, at 500 mL/hr Administer over 60 Minutes, Administer entire volume within 60 minutes or less., ONCE, 1 dose, On 07/26/24 at 2029 2009 (New Bag - Provider: Jag Sanches, KARINA)2216 (Stopped - Provider: Jag Sanches, KARINA) omeprazole (PriLOSEC) cap 40 mg 40 mg, Oral, HS, First dose on Protivin 07/27/24 at 2200, Until Discontinued 2134 (Given - Provider: Dona Dorado, KARINA) oxygen GAS Inhalation, OXYGEN, First dose on 07/26/24 at 1930, Until Discontinued, Device/Managed by: Low Flow Device, Goal SPO2 (%): 94 or greater, Starting Device: Nasal Cannula, Initial Flow Rate (LPM): 2, Lowest Support: Nasal Cannula: Flow 0-6 LPM. Titrate up/down by 1 LPM., Titration Interval: Q2 minutes and as needed., Notify Provider: For sudden DECREASE in resting SPO2 to less than 85% and when escalating delivery device., Wean patient off Oxygen when the oxygen saturation is greater than or equal to 93% 1930 (Due) 0000 (Oxygen Off - Provider: Srinivas Hopkins LPN)0800 (Oxygen Off - Provider: Charo Villatoro RN)1600 (Oxygen Off - Provider: Charo Villatoro RN) 0000 (Oxygen Off - Provider: Arlene Vuong RN)0800 (Oxygen Off - Provider: Gabi Gaviria, KARINA)1600 (Oxygen Off - Provider: Gabi Gaviria RN) potassium chloride ER tab 10 mEq (CANCELED) 10 mEq, Oral, Daily(AM), First dose on 07/27/24 at 0900, Until Discontinued 0911 (Given - Provider: Charo Villatoro RN) potassium chloride ER tab 30 mEq (COMPLETED) 30 mEq, Oral, Q1H, First dose on 07/27/24 at 1000, Last dose on 07/27/24 at 1100, For 2 doses, This med should NOT be Crushed or Chewed 0941 (Given - Provider: Charo Villatoro RN)1204 (Given - Provider: Charo Villatoro RN) potassium chloride ER tab 40 mEq 40 mEq, Oral, Daily(AM), First dose (after last modification) on 07/28/24 at 0900, Until Discontinued 0947 (Given - Provider: Gabi Gaviria RN) sodium chloride 0.9 % flush peripheral matthew 3 mL 3 mL, IV Push, QSHIFT, First dose on 07/27/24 at 0000, Until Discontinued, Do not flush if lock, PICC, or central line not in place; IV infusing or unable to flush. 0000 (Given - Provider: Srinivas Hopkins LPN)0800 (Given - Provider: Charo Villatoro RN)1600 (Given - Provider: Charo Villatoro RN) 0000 (Given - Provider: Dona Dorado RN)0800 (Given - Provider: Gabi Gaviria RN)1600 (Due) warfarin check daily dose (PHARMACIST MANAGED) [id number], First dose on 07/27/24 at 1500, Until Discontinued, Routine, Contact the pharmacy if there is not a warfarin dose entered by 1500 and document with whom it was discussed. 1500 (Order Check Addressed - Provider: Charo Villatoro RN) 1499 (Order Check Addressed - Provider: Gabi Gaviria RN) Warfarin Sodium (Coumadin) tab 8 mg (COMPLETED) 8 mg, Oral, QPM-1999, First dose on 07/27/24 at 1999, Last dose on 07/27/24 at 1999, For 1 day, WASTE INFO: Return packaging and waste medication in zip lock bag to pharmacy - [facility] container. 2133 (Given - Provider: Dona Dorado RN) Warfarin Sodium (Coumadin) tab 8 mg 8 mg, Oral, QPM-1999, First dose on Sun07/28/24 at 1999, Last dose on Sun07/28/24 at 1999, For 1 day, WASTE INFO: Return packaging and waste medication in zip lock bag to pharmacy - [facility] container. PRN Medication Order 07/26/2024 07/27/2024 07/28/2024 Acetaminophen (Tylenol) tab 650 mg 650 mg, Oral, Q6H PRN Pain, Mild, Fever >38C(100.5F), Starting on 07/26/24 at 2328, Until Sun07/28/24 at 2032, Maximum of 4 grams (4000 mg) per day. 1614 (Given - Provider: Dell Villatoro RN) Bisacodyl (Dulcolax) supp 10 mg(Linked Group 1) 10 mg, Rectal, DAILY PRN Constipation, Starting on Sun07/29/24 at 2328, Until Sun07/28/24 at 2032, Administer if no bowel movement within past 72 hours and patient unable to take oral medications. Bisacodyl (Dulcolax) tab 5 mg(Linked Group 1) 5 mg, Oral, DAILY PRN Constipation, Starting on Tu07/29/24 at 2328, Until Sun07/28/24 at 2032, Administer in addition to polyethylene glycol and senna-docusate if no bowel movement in past 72 hours. dextrose 50% inj 25 mL 25 mL, IV Push, PRN Hypoglycemia, Other, For blood glucose 54 - 69 mg/dL or 70 - 100 mg/dL with symptoms AND patient is unresponsive, NPO, OR unable to swallow, Starting on Sun07/27/24 at 0050, Until Sun07/28/24 at 2032, Administer IV. Recheck blood glucose after 15 minutes. Notify provider. dextrose 50% inj 50 mL 50 mL, IV Push, PRN Hypoglycemia, Other, For blood glucose below 54 mg/dL AND patient unresponsive, NPO, OR unable to swallow, Starting on 07/27/24 at 0050, Until Sun07/28/24 at 2032, Administer IV. Recheck blood glucose in 15 minutes. Notify provider. glucagon (Glucagen) inj 1 mg 1 mg, Intramuscular, PRN Hypoglycemia, Other, If patient is unresponsive, or NPO and has no IV access, Starting on 07/27/24 at 0050, Until Sun07/28/24 at 2032, NPO and no IV access with either 1) blood glucose less than 100 mg/dL and symptomatic OR 2) blood glucose less than 70 mg/dL and asymptomatic Glucose (Glutose 15) 40 % gel 15 g of glucose 15 g of glucose, Oral, PRN Hypoglycemia (low sugar), Other, For blood glucose 54 - 69 mg/dL or 70 - 100 mg/dL with symptoms AND patient alert WITH difficulty chewing/swallowing, Starting on 07/27/24 at 0050, Until Sun07/28/24 at 2032, Administer gel. Recheck blood glucose after 15 minutes. Notify provider. 37.5 gram tube = 15 grams glucose = 1 each Glucose (Glutose 15) 40 % gel 30 g of glucose 30 g of glucose, Oral, PRN Hypoglycemia (low sugar), Other, For blood glucose below 54 mg/dL AND patient alert WITH difficulty chewing/swallowing, Starting on 07/27/24 at 0050, Until Sun07/28/24 at 2032, Administer gel. Recheck blood glucose after 15 minutes. Notify provider. 37.5 gram tube = 15 grams glucose = 1 each glucose chew tab 16 g 16 g, Oral, PRN Hypoglycemia, Other, For blood glucose 54 - 69 mg/dL or 70 - 100 mg/dL with symptoms and patient alert without difficulty chewing/swallowing., Starting on 07/27/24 at 0050, Until Sun07/28/24 at 2032 melatonin tab 3 mg 3 mg, Oral, HS PRN Insomnia, Starting on 07/26/24 at 2328, Until Sun07/28/24 at 2033 ondansetron (Zofran) inj 4 mg 4 mg, IV Push, Q6H PRN Nausea, Starting on Sun07/26/24 at 2328, Until Sun07/28/24 at 2032 Polyethylene Glycol 3350 (Miralax) oral powder 17 g(Linked Group 1) 17 g (1 Packet), Oral, DAILY PRN Constipation, Starting on Sun07/26/24 at 2328, Until Sun07/28/24 at 2032, Administer if no bowel movement within past 24 hours. senna-docusate (Senokot-S) 1 Tablet(Linked Group 1) 1 Tablet, Oral, BID PRN Constipation, Starting on Sun07/28/24 at 2328, Until Sun07/28/24 at 2032, Administer in addition to polyethylene glycol if no bowel movement within past 48 hours. sodium chloride 0.9 % flush/inj 3 mL 3 mL, IV Push, PRN Other, Line Patency, Starting on Sun07/26/24 at 2328, Until Sun07/28/24 at 2032, Do not flush if lock, PICC, or central line not in place, IV infusing or unable to flush Linked Groups Order Group 1: Polyethylene Glycol 3350 (Miralax) oral powder 17 gJump to med 17 g (1 Packet), Oral, DAILY PRN Constipation, Starting on Sun07/26/24 at 2328, Until Sun07/28/24 at 2032, Administer if no bowel movement within past 24 hours. And senna-docusate (Senokot-S) 1 TabletJump to med 1 Tablet, Oral, BID PRN Constipation, Starting on Sun07/28/24 at 2328, Until Sun07/28/24 at 2032, Administer in addition to polyethylene glycol if no bowel movement within past 48 hours. And Bisacodyl (Dulcolax) tab 5 mgJump to med 5 mg, Oral, DAILY PRN Constipation, Starting on Sun07/29/24 at 2328, Until Sun07/28/24 at 2032, Administer in addition to polyethylene glycol and senna-docusate if no bowel movement in past 72 hours. And Bisacodyl (Dulcolax) supp 10 mgJump to med 10 mg, Rectal, DAILY PRN Constipation, Starting on Sun07/29/24 at 2328, Until 07/28/24 at 2033, Administer if no bowel movement within past 72 hours and patient unable to take oral medications. documented in this encounter Advance Directives * Full Code [...] Advance Directives occurred with: Family Care Teams Linseed Oil Press Tender Relationship Specialty Start Date End Date Jag Kovacs MD [address] [id number] PCP - General Family Medicine 08/05/21 documented as of this encounter
--- OUTSIDE RECORDS SUMMARY | 2024-08-21 14:07 | External Medical Summary | Summary of Care ---
Author Name Unknown Organization [facility] Address [address] [place] [address] Phone [phone] Care Team Providers Care Electric Switch Tester Name Role Phone Jag Kovacs MD Primary Care Provider Reason for Visit * Reason Onset Date Comments Colonoscopy 07/25/2024 Encounter Details Date Type Department Care Team (Late st Contact Info) Description 07/25/2024 Telephone [facility] [address] [place] [address] Jag Kovacs MD [address] [place] [address] Colonoscopy Allergies Active Allergy Reactions Criticality Noted [...] nuclear stress test 05/08/2016 06/12/2017 Overview: 05/04-at [place] card++++ B12 deficiency 08/12/2015 06/12/2017 Overview: [id number], [...] 5 yrs-DrKomar. Cohen scope 02/28/2010 Dr. Lynn, [place] internal hemorrhoid, normal colon, repeat 5 years [...] 07/25/2024 Does the household have a re gular [...] deaf or do you have serious difficulty h earing? Yes 06/10/2024 Are you blind or do you have serious difficulty seeing, even when wearing glasses? No 06/10/2024 Do you have serious difficul ty walking or climbing stairs? (5 years old or older) No 06/10/2024 Do you have difficulty dress ing or bathing? (5 years old or older) No 06/10/2024 Because of a physical, menta l, or emotional condition, do you have difficulty doing errands alone such as visiting a doctor s office or shopping? (15 years old or older) No 06/10/20 Cognitive Status Response Date of Assessm ent Because of a physical, menta l, or emotional condition, do you have serious difficulty concentrating, remembering, or making decisions? (5 years old or older) No 06/10/2024 documented as of this encounter Miscellaneous Notes * Telephone Encounter - Mariana Kim OSA - 07/25/2024 3:00 PM EDT Pt has an order for a colonoscopy. She states she has her last one done in [place] and would like to have it done there again. Pt is a diabetic and does take coumadin. And would prefer an evening appointment. Please assist with scheduling if possible. Thank you! documented in this encounter Plan of Treatment Upcoming Encounters Date Type Department Care Team (Late st Contact Info) Description 07/30/2024 5:10 PM EDT Anticoagulation Pharmacy, [place] [address] [phone] Pharmacist1, [facility] [place] [address] [place] [address] 08/04/2024 2:45 PM EDT Appointment Radiology, [place] [address] [facility] [place] [address] 08/28/2024 6:00 PM EDT Office Visit [facility] [address] [facility] [place] [address] [facility] [address] 09/11/2024 2:00 PM EDT Office Visit Podiatry, [facility] [address] [place] [address] Azul Nye, DPM [address] [place], [place] [id number] Scheduled Procedures Name Priority Associated Diagnoses Date/Ti [...] Advance Directives occurred with: Family Care Teams Electric Switch Tester Relationship Specialty Start Date End Date Jag Kovacs MD [address] [address] PCP - General Family Medicine 08/05/21 documented as of this encounter
--- OUTSIDE RECORDS SUMMARY | 2024-08-21 14:08 | External Medical Summary ---
Author Name Unknown Address Unknown Organization : Laboratory Report Ordering Provider Test Date Status ELIZA HICKS 07/27/2024 11:44:04 Final Observation Date Value Abnormality Reference (Units ) Status Glucose Point of Care 07/27/2024 11:44:04 128 Above high normal 70-120 (mg/dL) Final Performing Location
--- OUTSIDE RECORDS SUMMARY | 2024-08-21 14:08 | External Medical Summary ---
Author Name Unknown Address Unknown Organization K1F:LABORATORY [facility] - [place] [address] Laboratory Report Ordering Provider Test Date Status BRANDEN KERR 07/26/2024 20:06:00 Final Observation Date Value Abnormality Reference (Units ) Status Troponin T 07/26/2024 20:06:00 20 Above high normal < =14 (ng/L) Final Performing Location LAB[facility]ATORY [facility] - [place] [address]
--- OUTSIDE RECORDS SUMMARY | 2024-08-21 14:08 | External Medical Summary ---
Author Name Unknown Address Unknown Organization K1F:LABORATORY [facility] - [address] [place] [address] Laboratory Report Ordering Provider Test Date Status PINA CONLEY 07/27/2024 07:03:00 Final Observation Date Value Abnormality Reference (Units ) Status WBC, Total 07/27/2024 07:03:00 9.97 4.00-10.80 (K/uL) Final RBC 07/27/2024 07:03:00 3.43 3.85-5.15 (M/uL) Final Hemoglobin 07/27/2024 07:03:00 10.1 Below low normal 12.0-15.3 (g/dL) Final HCT 07/27/2024 07:03:00 30.4 Below low normal 36.0-45.2 (%) Final MCV 07/27/2024 07:03:00 88.6 81.5-97.5 (fL) Final MCH 07/27/2024 07:03:00 29.4 27.0-34.0 (pg) Final MCHC 07/27/2024 07:03:00 33.2 32.0-36.0 (g/dL) Final RDW 07/27/2024 07:03:00 16.4 11.5-15.5 (%) Final Platelets 07/27/2024 07:03:00 216 140-400 (K/uL) Final MPV 07/27/2024 07:03:00 10.4 6.6-11.1 (fL) Final Nucleated erythrocytes/100 leukocytes [Ratio] in Blood by Automated count 07/27/2024 07:03:00 0 <=0 (/100 WBCs) Final Performing Location LABORATORY [facility] - [address] [place] [address]
--- OUTSIDE RECORDS SUMMARY | 2024-08-21 14:08 | External Medical Summary ---
Author Name Unknown Address Unknown Organization K1F:LABORATORY [facility] - [address] [place] [address] Laboratory Report Ordering Provider Test Date Status BRANDEN KERR 07/26/2024 19:03:39 Final Observation Date Value Abnormality Reference (Units ) Status Lactic Acid, Whole Blood 07/26/2024 19:03:39 3.6 Above high normal 0.4-2.0 (mmol/L) Final Performing Location LABORATORY [facility] - [address] [place] [address]
--- OUTSIDE RECORDS SUMMARY | 2024-08-21 14:08 | External Medical Summary ---
Author Name Unknown Address Unknown Organization : Laboratory Report Ordering Provider Test Date Status ELIZA HICKS 07/27/2024 21:29:43 Final Observation Date Value Abnormality Reference (Units ) Status Glucose Point of Care 07/27/2024 21:29:43 153 Above high normal 70-120 (mg/dL) Final Performing Location
--- OUTSIDE RECORDS SUMMARY | 2024-08-21 14:08 | External Medical Summary ---
Author Name Unknown Address Unknown Organization : Laboratory Report Ordering Provider Test Date Status NO,UNKNOWN 07/26/2024 18:52:01 Final Observation Date Value Abnormality Reference (Units ) Status Glucose Point of Care 07/26/2024 18:52:01 199 Above high normal 70-120 (mg/dL) Final Performing Location
--- OUTSIDE RECORDS SUMMARY | 2024-08-21 14:08 | External Medical Summary ---
Author Name Unknown Address Unknown Organization K1F:LABORATORY [facility] - [place] [address] Laboratory Report Ordering Provider Test Date Status ELIZA HICKS 07/28/2024 05:42:00 Final Warfarin Therapy
INR: 2 .0-3.0 conventional anticoagulation
INR: 2.5- 3.5 high intensity anticoagulation Observation Date Value Abnormality Reference (Units ) Status PT 07/28/2024 05:42:00 18.5 Above high normal 11 .6-15.2 (seconds) Final INR 07/28/2024 05:42:00 1.5 Above high normal 0. 8-1.2 Final Performing Location LABORATORY [facility] - [address] [place] [address]
--- OUTSIDE RECORDS SUMMARY | 2024-08-21 14:08 | External Medical Summary ---
Author Name Unknown Address Unknown Organization K1F:LABORATORY [facility] - [address] [place] [address] Laboratory Report Ordering Provider Test Date Status BRANDEN KERR 07/26/2024 19:03:39 Final Observation Date Value Abnormality Reference (Units ) Status ABO 07/26/2024 19:03:39 O Final RH 07/26/2024 19:03:39 Negative Final RED BLOOD CELL ANTIBODY SCREEN 07/26/2024 19:03:39 Negative Final SPECIMEN EXPIRATION DATE 07/26/2024 19:03:39 07/29/2024 23:59 Final Performing Location LABORATORY [facility] - [address] [place] [address]
--- OUTSIDE RECORDS SUMMARY | 2024-08-21 14:08 | External Medical Summary ---
Author Name Unknown Address Unknown Organization K1F:[facility] - [address] [place] [address] Laboratory Report Ordering Provider Test Date Status BRANDEN KERR 07/26/2024 19:03:39 Final Observation Date Value Abnormality Reference (Units ) Status SYNC LEUKOCYTES IN BLOOD BY AUTOMATED COUNT 07/26/2024 19:03:39 9.85 4.00-10.80 (K/uL) Final Segs 07/26/2024 19:03:39 65.0 40.0-75.0 (%) Final Lymphs % 07/26/2024 19:03:39 21.4 18.0-42.0 (%) Final Monos 07/26/2024 19:03:39 8.2 1.0-11.0 (%) Final Eosinophils 07/26/2024 19:03:39 4.5 0.0-6.0 (%) Final Basos 07/26/2024 19:03:39 0.4 0.0-2.0 (%) Final Immature Granulocyte, Percent 07/26/2024 19:03:39 0.5 0.0-2.0 (%) Final Absolute Segs 07/26/2024 19:03:39 6.40 1.80-7.70 (K/uL) Final Lymphs, absolute 07/26/2024 19:03:39 2.11 1.00-4.80 (K/ul) Final Monos, Abs 07/26/2024 19:03:39 0.81 0.00-1.10 (K/uL) Final Eos, Abs 07/26/2024 19:03:39 0.44 0.00-0.70 (K/uL) Final Basos, Abs 07/26/2024 19:03:39 0.04 0.00-0.20 (K/uL) Final Immature Granulocytes, Number 07/26/2024 19:03:39 0.05 0.00-0.20 (K/uL) Final Performing Location LAB[facility]ORY [facility] - [address] [place] [address]
--- OUTSIDE RECORDS SUMMARY | 2024-08-21 14:08 | External Medical Summary ---
Author Name Unknown Address Unknown Organization K1F:LABORATORY [facility] - [address] [place] [address] Laboratory Report Ordering Provider Test Date Status ELIZA HICKS 07/28/2024 05:42:00 Final Observation Date Value Abnormality Reference (Units ) Status BUN 07/28/2024 05:42:00 11 6-20 (mg/dL) Final Creatinine 07/28/2024 05:42:00 0.8 0.5-1.0 (mg/dL) Final Glomerular filtration rate/1.73 sq M.predicted [Volume Rate/Area] in Serum, Plasma or Blood by Creatinine-based formula (CKD-EPI) 07/28/2024 05:42:00 77 >=60 (mL/min) Final eGFR is calculated based on the CKD-EPI 2020 equation. Sodium 07/28/2024 05:42:00 140 135-146 (m mol/L) Final Potassium 07/28/2024 05:42:00 3.3 Below low normal 3.5 -5.1 (mmol/L) Final Cl 07/28/2024 05:42:00 104 98-107 (mm ol/L) Final CO2 07/28/2024 05:42:00 26 22-32 (mmo l/L) Final Anion gap 07/28/2024 05:42:00 10 7-15 (mmol /L) Final Glucose 07/28/2024 05:42:00 143 Above high normal 70 -120 (mg/dL) Final Calcium 07/28/2024 05:42:00 8.0 Below low normal 8.4 -10.2 (mg/dL) Final Performing Location LABORATORY [facility] - [address] [place] [address]
--- OUTSIDE RECORDS SUMMARY | 2024-08-21 14:08 | External Medical Summary ---
Author Name Unknown Address Unknown Organization : Laboratory Report Ordering Provider Test Date Status ELIZA HICKS 07/27/2024 07:16:18 Final Observation Date Value Abnormality Reference (Units ) Status Glucose Point of Care 07/27/2024 07:16:18 115 70-120 (mg/dL) Final Performing Location
--- OUTSIDE RECORDS SUMMARY | 2024-08-21 14:08 | External Medical Summary ---
Author Name Unknown Address Unknown Organization K01:[facility] [place] [address] [facility] [address] Laboratory Report Ordering Provider Test Date Status BRANDEN KERR 07/26/2024 23:19:50 Final <10,000 colonies/ml mixed no rmal surendra Observation Date Value Abnormality Reference (Units ) Status Bacteria identified in Specimen by Culture 07/26/2024 23:19:50 [id number]^ESCHE RICHIA COLI ESBL Abnormal Final >100,000 colonies/mL Escheri gabbi coli ESBL producing organism, This patient may require isolation.
This gram negative bacilli displays in vitro resistance to multiple antibiotics. This patient may require isolation. Carbapenem use is preferred. Contact infectious disease service for further recommendations. Performing Location [facility] [place] [address] [facility] [address] Ordering Provider Test Date Status BRANDEN KERR 07/26/2024 23:19:50 Final Observation Date Value Abnormality Reference (Units ) Status Ampicillin 07/26/2024 23:19:50 >=32 Resistant Final Ampicillin + Sulbactam 07/26/2024 23:19:50 16 Intermediate Final Cefazolin 07/26/2024 23:19:50 >=64 Resistant Final Cefepime susceptibility 07/26/2024 23:19:50 Resistant Final This is an appended report. These results have been appended to a previously preliminary verified report. Ceftriaxone suceptibility 07/26/2024 23:19:50 >=64 Resi stant Final Ciprofloxacin 07/26/2024 23:19:50 >=4 Resistant Final Due to serious side effects, the FDA has advised against using Ciprofloxacin to treat uncomplicated UTIs and respiratory tract infections unless there are no alternative treatment options. Gentamicin susceptibility 07/26/2024 23:19:50 <=1 Susc eptible Final Levofloxacin susceptibility 07/26/2024 23:19:50 >=8 Re sistant Final Due to serious side effects, the FDA has advised against using Levofloxacin to treat uncomplicated UTIs and respiratory tract infections unless there are no alternative treatment options. Meropenem [Susceptibility] 07/26/2024 23:19:50 <=0.25 Zoila ceptible Final Nitrofurantoin susceptibility 07/26/2024 23:19:50 <=16 Susceptible Final Piperacillin + Tazobactamsusceptibility 07/26/2024 23:19:50 <=4 Susceptible Final TMP-SMZ susceptibility 07/26/2024 23:19:50 <=20 Suscept ible Final Performing Location [facility] [place] [address] [facility] [address] Ordering Provider Test Date Status BRANDEN KERR 07/26/2024 23:19:50 Final Observation Date Value Abnormality Reference (Units ) Status Ertapenem [Susceptibility] 07/26/2024 23:19:50 27 Susceptible Susceptible >21 , Intermediate <=21 , Resistant <=18 Final Test: Culture, Urine, Quanti tative
Specimen Source: Urine, Clean Catch
Specimen Type: Urine
Specimen Date: 07/26/2024 231
Result Date: 07/30/2024 1457
Result Status: Final result
Abnormal: Yes
Resulting Lab: [facility] [place]
[address]
[facility] [address]

CULTURE

>100,000 colonies/mL Escherichia coli ESBL producing organism, This patient may
require isolation. (Abnormal)

This gram negative bacilli displays in vitro resistance to multiple
antibiotics. This patient may require isolation. Carbapenem use is
preferred. Contact infectious disease service for further recommendations.

<10,000 colonies/ml mixed normal surendra

SUSCEPTIBILITY

Escherichia coli Escherichia coli
ESBL producing ESBL producing
organism, This organism, This
patient may require patient may require
isolation. isolation.
METHOD SILVA CARVER MICROBROTH DILUTIONS

AMPICILLIN >=32 Resistant
AMPICILLIN/SULBACTAM 16 Intermediate
CEFAZOLIN >=64 Resistant
CEFEPIME -- Resistant
[1]
CEFTRIAXONE >=64 Resistant
CIPROFLOXACIN >=4 Resistant
[2]
ERTAPENEM 27 Susceptible
GENTAMICIN <=1 Susceptible
LEVOFLOXACIN >=8 Resistant
[3]
MEROPENEM <=0.25 Susceptible
NITROFURANTOIN <=16 Susceptible
PIPERACILLIN TAZOBACTAM <=4 Susceptible
TRIMETH/SULFAMETHOXAZOLE <=20 Susceptible

[1] This is an appended report. These results have been appended to a
previously preliminary verified report.

[2] Due to serious side effects, the FDA has advised against using
Ciprofloxacin to treat uncomplicated UTIs and respiratory tract infections
unless there are no alternative treatment options.

[3] Due to serious side effects, the FDA has advised against using
Levofloxacin to treat uncomplicated UTIs and respiratory tract infections
unless there are no alternative treatment options.

null Performing Location [facility] [place] [address] [facility] [address]
--- OUTSIDE RECORDS SUMMARY | 2024-08-21 14:08 | External Medical Summary ---
Author Name Unknown Address Unknown Organization K1F:LABORATORY [facility] - [address] [place] [address] Laboratory Report Ordering Provider Test Date Status BRANDEN KERR 07/26/2024 19:03:39 Final Observation Date Value Abnormality Reference (Units ) Status Troponin T 07/26/2024 19:03:39 18 Above high normal < =14 (ng/L) Final Result may be falsely decrea sed due to hemolysis.
Result may be falsely decreased due to hemolysis. Performing Location LABORATORY [facility] - [address] [address]
--- OUTSIDE RECORDS SUMMARY | 2024-08-21 14:08 | External Medical Summary ---
Author Name Unknown Address Unknown Organization K1F:LABORATORY [facility] - [address] [place] [address] Laboratory Report Ordering Provider Test Date Status BRANDEN KERR 07/26/2024 19:27:07 Final Observation Date Value Abnormality Reference (Units ) Status Color of Urine by Auto 07/26/2024 19:27:07 Yellow Light Yellow, Yellow, Dark Yellow Final Clarity, Urine 07/26/2024 19:27:07 Clear Clear Final Glucose [Mass/volume] in Urine by Automated test strip 07/26/2024 19:27:07 Negative Negative (mg/dL) Final Bilirubin.total [Presence] in Urine by Automated test strip 07/26/2024 19:27:07 Negative Negative Final Ketones [Mass/volume] in Urine by Automated test strip 07/26/2024 19:27:07 Negative Negative (mg/dL) Final Specific gravity, Urine 07/26/2024 19:27:07 1.019 1.003-1.030 Final Hemoglobin [Presence] in Urine by Automated test strip 07/26/2024 19:27:07 Large Abnormal Negative Final pH, Urine 07/26/2024 19:27:07 6.0 5.0-7.5 (Units) Final Protein [Mass/volume] in Urine by Automated test strip 07/26/2024 19:27:07 Trace Abnormal Negative (mg/dL) Final Urobilinogen [Mass/volume] in Urine by Automated test strip 07/26/2024 19:27:07 0.2 0.2, 1.0 (mg/dL) Final Nitrite [Presence] in Urine by Automated test strip 07/26/2024 19:27:07 Positive Abnormal Negative Final Leukocyte esterase [Presence] in Urine by Automated test strip 07/26/2024 19:27:07 Moderate Abnormal Negative Final Performing Location [facility] [address] [place] [address]
--- OUTSIDE RECORDS SUMMARY | 2024-08-21 14:08 | External Medical Summary ---
Author Name Unknown Address Unknown Organization K1F:LABORATORY [facility] - [address] [place], [place] [address] [address] Laboratory Report Ordering Provider Test Date Status BRANDEN KERR 07/26/2024 19:27:07 Final Cutoff Concentrations:
Drug Level
Amphetamines 500 ng/mL
Benzodiazepines 100 ng/mL
Cannabinoids 50 ng/mL
Cocaine Metabolite 150 ng/mL
Fentanyl 1 ng/mL
Hydrocodone / Hydromorphone 300 ng/mL
Methadone Metabolite 100 ng/mL
Morphine / Codeine 300 ng/mL
Oxycodone / Oxymorphone 100 ng/mL

Screening results are presumptive and can only be used for medical purposes. Positive screening results are reflexed to confirmatory testing. Observation Date Value Abnormality Reference (Units ) Status Amphetamines, Urine screen 07/26/2024 19:27:07 Negative Negative Final Benzodiazepines, Urine screen 07/26/2024 19:27:07 Negative Negative Final Cannabinoids, Urine screen 07/26/2024 19:27:07 Negative Negative Final Cocaine Metabolite, Urine screen 07/26/2024 19:27:07 Negative Negative Final fentaNYL [Presence] in Urine by Screen method 07/26/2024 19:27:07 Negative Negative Final HYDROcodone [Presence] in Urine by Screen method 07/26/2024 19:27:07 Negative Negative Final 7-Ojshcyixie-6,5-Dimeth yl-3,3-Diphenylpyrrolid ine (EDDP) [Presence] in Urine 07/26/2024 19:27:07 Negative Negative Final Opiates, Urine screen 07/26/2024 19:27:07 Negative Negative Final oxyCODONE [Presence] in Urine by Screen method 07/26/2024 19:27:07 Negative Negative Final Performing Location LABORATORY [facility] - [address] [place] [address]
--- OUTSIDE RECORDS SUMMARY | 2024-08-21 14:08 | External Medical Summary ---
Author Name Unknown Address Unknown Organization K1F:LABORATORY [facility] - [address] [place] [address] Laboratory Report Ordering Provider Test Date Status USHABRANDEN 07/26/2024 20:06:00 Final Observation Date Value Abnormality Reference (Units ) Status Ethanol 07/26/2024 20:06:00 Negative Negative Final Performing Location LAB[facility]ATORY [facility] - [address] [place] [address]
--- OUTSIDE RECORDS SUMMARY | 2024-08-21 14:08 | External Medical Summary ---
Author Name Unknown Address Unknown Organization K01:LABORATORY [facility] [place] - [address] [facility] [place] [address] Laboratory Report Ordering Provider Test Date Status PINA CONLEY 07/27/2024 07:03:00 Final Observation Date Value Abnormality Reference (Units ) Status HbA1C 07/27/2024 07:03:00 6.7 Above high normal 4. 0-5.6 (%) Final The use of HbA1c to monitor glycemic status is based on normal hemoglobin and HbA composition. This test should not be used in patients with abnormal hemoglobin that affects the half life of the red blood cell or the in vivo glycation rates. Glucose, estimated average 07/27/2024 07:03:00 146 Above high normal <126 (mg/dL) Logan zimmer Performing Location LABORATORY [facility] [place] - [address] [facility] [place] [address]
--- OUTSIDE RECORDS SUMMARY | 2024-08-21 14:08 | External Medical Summary ---
Author Name Unknown Address Unknown Organization : Laboratory Report Ordering Provider Test Date Status ELIZA HICKS 07/27/2024 16:09:09 Final Observation Date Value Abnormality Reference (Units ) Status Glucose Point of Care 07/27/2024 16:09:09 202 Above high normal 70-120 (mg/dL) Final Performing Location
--- OUTSIDE RECORDS SUMMARY | 2024-08-21 14:08 | External Medical Summary ---
Author Name Unknown Address Unknown Organization K1F:LABORATORY [facility] - [address] [place] [address] Laboratory Report Ordering Provider Test Date Status PINA CONLEY 07/27/2024 07:03:00 Final Observation Date Value Abnormality Reference (Units ) Status BUN 07/27/2024 07:03:00 15 6-20 (mg/dL) Final Creatinine 07/27/2024 07:03:00 0.7 0.5-1.0 (mg/dL) Final Glomerular filtration rate/1.73 sq M.predicted [Volume Rate/Area] in Serum, Plasma or Blood by Creatinine-based formula (CKD-EPI) 07/27/2024 07:03:00 82 >=60 (mL/min) Final eGFR is calculated based on the CKD-EPI 2020 equation. Sodium 07/27/2024 07:03:00 141 135-146 (m mol/L) Final Potassium 07/27/2024 07:03:00 2.9 Below low normal 3.5 -5.1 (mmol/L) Final Cl 07/27/2024 07:03:00 103 98-107 (mm ol/L) Final CO2 07/27/2024 07:03:00 26 22-32 (mmo l/L) Final Anion gap 07/27/2024 07:03:00 12 7-15 (mmol /L) Final Glucose 07/27/2024 07:03:00 116 70-120 (mg /dL) Final Calcium 07/27/2024 07:03:00 7.7 Below low normal 8.4 -10.2 (mg/dL) Final Performing Location LABORATORY [facility] - [address] [address]
--- OUTSIDE RECORDS SUMMARY | 2024-08-21 14:08 | External Medical Summary ---
Author Name Unknown Address Unknown Organization K1F:LABORATORY [facility] - [address] [place] [address] Laboratory Report Ordering Provider Test Date Status FABIOLAELIZA 07/27/2024 13:24:00 Final Warfarin Therapy
INR: 2 .0-3.0 conventional anticoagulation
INR: 2.5- 3.5 high intensity anticoagulation Observation Date Value Abnormality Reference (Units ) Status PT 07/27/2024 13:24:00 19.7 Above high normal 11 .6-15.2 (seconds) Final INR 07/27/2024 13:24:00 1.7 Above high normal 0. 8-1.2 Final Performing Location LABORATORY [facility] - [address] [address]
--- OUTSIDE RECORDS SUMMARY | 2024-08-21 14:08 | External Medical Summary ---
Author Name Unknown Address Unknown Organization K1F:LAB[facility]ATORY [facility] - [address] [place] [address] Laboratory Report Ordering Provider Test Date Status BRANDEN KERR 07/26/2024 22:35:06 Final Observation Date Value Abnormality Reference (Units ) Status Lactic Acid 07/26/2024 22:35:06 2.8 Above high normal 0.4-2.0 (mmol/L) Final Performing Location LABORATORY [facility] - [address] [place] [address]
--- OUTSIDE RECORDS SUMMARY | 2024-08-21 14:08 | External Medical Summary ---
Author Name Unknown Address Unknown Organization : Laboratory Report Ordering Provider Test Date Status ELIZA HICKS 07/28/2024 07:39:23 Final Observation Date Value Abnormality Reference (Units ) Status Glucose Point of Care 07/28/2024 07:39:23 135 Above high normal 70-120 (mg/dL) Final Performing Location
--- OUTSIDE RECORDS SUMMARY | 2024-08-21 14:08 | External Medical Summary ---
Author Name Unknown Address Unknown Organization K1F:LABORATORY [facility] - [place] [address] Laboratory Report Ordering Provider Test Date Status BRANDEN KERR 07/26/2024 19:03:39 Final Warfarin Therapy
INR: 2 .0-3.0 conventional anticoagulation
INR: 2.5- 3.5 high intensity anticoagulation Observation Date Value Abnormality Reference (Units ) Status PT 07/26/2024 19:03:39 20.0 Above high normal 11 .6-15.2 (seconds) Final INR 07/26/2024 19:03:39 1.7 Above high normal 0. 8-1.2 Final Performing Location LABORATORY [facility] - [address] [place] [address]
--- OUTSIDE RECORDS SUMMARY | 2024-08-21 14:08 | External Medical Summary ---
Author Name Unknown Address Unknown Organization K1F:LABORATORY [facility] - [place] [address] Laboratory Report Ordering Provider Test Date Status BRANDEN KERR 07/26/2024 19:27:07 Final Observation Date Value Abnormality Reference (Units ) Status RBC, Urine 07/26/2024 19:27:07 50+ Abnormal 0-2 (/HPF) Final WBC, Urine 07/26/2024 19:27:07 50+ Abnormal 0-2 (/HPF) Final Bacteria [#/area] in Urine sediment by Microscopy high power field 07/26/2024 19:27:07 >200 Abnormal 0-25 (/HPF) Final Performing Location LABORATORY [facility] - [address] [address]
--- OUTSIDE RECORDS SUMMARY | 2024-08-21 14:08 | External Medical Summary ---
Author Name Unknown Address Unknown Organization K1F:LABORATORY [facility] - [address] [place] [address] Laboratory Report Ordering Provider Test Date Status BRANDEN KERR 07/26/2024 19:03:39 Final Observation Date Value Abnormality Reference (Units ) Status BUN 07/26/2024 19:03:39 21 Above high normal 6-20 (mg/dL) Final Creatinine 07/26/2024 19:03:39 0.8 0.5-1.0 (mg/dL) Final Glomerular filtration rate/1.73 sq M.predicted [Volume Rate/Area] in Serum, Plasma or Blood by Creatinine-based formula (CKD-EPI) 07/26/2024 19:03:39 76 >=60 (mL/min) Final eGFR is calculated based on the CKD-EPI 2020 equation. Sodium 07/26/2024 19:03:39 140 135-146 (m mol/L) Final Potassium 07/26/2024 19:03:39 Final Specimen too hemolyzed. Reor rudolph if needed. Cl 07/26/2024 19:03:39 100 98-107 (mm ol/L) Final CO2 07/26/2024 19:03:39 26 22-32 (mmo l/L) Final Anion gap 07/26/2024 19:03:39 14 7-15 (mmol /L) Final Glucose 07/26/2024 19:03:39 229 Above high normal 70 -120 (mg/dL) Final Albumin 07/26/2024 19:03:39 3.9 3.8-5.0 (g /dL) Final AST (Aspartate aminotransferase) 07/26/2024 19:03:39 Fin al Specimen too hemolyzed. Reor rudolph if needed. Alk Phos 07/26/2024 19:03:39 69 35-130 (U/ L) Final Results may be falsely eleva eliud due to hemolysis. Bilirubin, Total 07/26/2024 19:03:39 0.4 <=1 .2 (mg/dL) Final Calcium 07/26/2024 19:03:39 8.2 Below low normal 8.4 -10.2 (mg/dL) Final Protein 07/26/2024 19:03:39 7.3 6.0-8.3 (g /dL) Final ALT (Alanine aminotransferase) 07/26/2024 19:03:39 21 10-35 (U/L) Fin al Results may be falsely eleva eliud due to hemolysis. Performing Location LABORATORY [facility] - [address] [place], [place] [address] [place] [address]
--- OUTSIDE RECORDS SUMMARY | 2024-08-21 14:08 | External Medical Summary ---
Author Name Unknown Address Unknown Organization K1F:LABORATORY [facility] - [address] [place] [address] [address] [place] [address] Laboratory Report Ordering Provider Test Date Status BRANDEN KERR 07/26/2024 19:03:39 Final Observation Date Value Abnormality Reference (Units ) Status WBC, Total 07/26/2024 19:03:39 9.85 4.00-10.80 (K/uL) Final RBC 07/26/2024 19:03:39 3.92 3.85-5.15 (M/uL) Final Hemoglobin 07/26/2024 19:03:39 11.5 Below low normal 12.0-15.3 (g/dL) Final HCT 07/26/2024 19:03:39 36.0 36.0-45.2 (%) Final MCV 07/26/2024 19:03:39 91.8 81.5-97.5 (fL) Final MCH 07/26/2024 19:03:39 29.3 27.0-34.0 (pg) Final MCHC 07/26/2024 19:03:39 31.9 32.0-36.0 (g/dL) Final RDW 07/26/2024 19:03:39 17.0 11.5-15.5 (%) Final Platelets 07/26/2024 19:03:39 284 140-400 (K/uL) Final MPV 07/26/2024 19:03:39 10.5 6.6-11.1 (fL) Final Nucleated erythrocytes/100 leukocytes [Ratio] in Blood by Automated count 07/26/2024 19:03:39 0 <=0 (/100 WBCs) Final Performing Location LABORATORY [facility] - [address] [place] [address]
--- OUTSIDE RECORDS SUMMARY | 2024-08-21 14:09 | External Medical Summary ---
Author Name Unknown Address Unknown Organization K1F:LABORATORY [facility] - [address] [place] [address] Laboratory Report Ordering Provider Test Date Status NEY ALEJANDRE 07/11/2024 06:24:00 Final Observation Date Value Abnormality Reference (Units ) Status BUN 07/11/2024 06:24:00 18 6-20 (mg/dL) Final Creatinine 07/11/2024 06:24:00 0.8 0.5-1.0 (mg/dL) Final Glomerular filtration rate/1.73 sq M.predicted [Volume Rate/Area] in Serum, Plasma or Blood by Creatinine-based formula (CKD-EPI) 07/11/2024 06:24:00 69 >=60 (mL/min) Final eGFR is calculated based on the CKD-EPI 2020 equation. Sodium 07/11/2024 06:24:00 139 135-146 (m mol/L) Final Potassium 07/11/2024 06:24:00 3.9 3.5-5.1 (m mol/L) Final Cl 07/11/2024 06:24:00 102 98-107 (mm ol/L) Final CO2 07/11/2024 06:24:00 23 22-32 (mmo l/L) Final Anion gap 07/11/2024 06:24:00 14 7-15 (mmol /L) Final Glucose 07/11/2024 06:24:00 68 Below low normal 70- 120 (mg/dL) Final Calcium 07/11/2024 06:24:00 9.0 8.4-10.2 ( mg/dL) Final Performing Location LABORATORY [facility] - [address] [address]
--- OUTSIDE RECORDS SUMMARY | 2024-08-21 14:09 | External Medical Summary | Summary of Care ---
Author Name Unknown Organization [facility] Address [address] [place] [address] Phone [phone] Care Team Providers Care Hybrid Tester Name Role Phone Candelario Kovacs MD Primary Care Provider Reason for Referral * Ancillary Services (Within 30 days (routine)) - Authorized Specialty Diagnoses / Procedures Referred By Bernard oj Referred To Contact Gastroenterology Diagnoses Special screening for malignant neoplasms, colon Candelario Kovacs MD [address] [place] [address] Referral ID Status Reason Start Date Expiration Date Visits Requested Visits Authorized [id number] Authorized Ancillary Services Required 07/25/[phone] Question Answer Referral Priority Within 30 days (routine) Where should this appointment be scheduled? Brandie Comments ALERT: Do not order for pediatric patients (18 years or younger). Cancel off screen and order PEDS GASTROENTEROLOGY CONSULT (Type: 1 visit only-Evaluate and Treat) The following Pt. Instructions are available: - Gastro Colonoscopy Prep Instructions [27016] - Gastro Colonoscopy Prep Instructions (Korean Version) [[id number]] Go to the Pt. Instructions section within the Visit Navigator to access. Colonoscopy ASGE Guidelines: Postadenoma resection: 3-10 adenomas or adenoma with villous features, greater than or equal 1 cm, or with high-grade dysplasia (3 yr intervals) ADDITIONAL INFORMATION 1. Is the patient on Coumadin? Yes--Coumadin MAY NOT be stopped for 5 days 2. Is the patient on Pradaxa? No Reason for Visit * Reason Onset Date Comments Hospital Follow-Up Hospital Follow-Up 07/25/2024 Medication Administration 07/25/2024 Flu an d/or Pneumo Inj Encounter Details Date Type Department Care Team (Late st Contact Info) Description 07/25/2024 2:00 PM EDT Office Visit [facility] [address] [phone] Candelario Kovacs MD [address] [phone] Hospital discharge follow-up*; Intraventricular hemorrhage (HCC); Hydrocephalus, unspecified type (HCC); Type 2 diabetes mellitus with hemoglobin A1c goal of less than 8.0% (HCC); HTN, goal below 140/90; Special screening for malignant neoplasms, colon; Need for prophylactic vaccination and inoculation against influenza; Encounter for screening mammogram for breast cancer Allergies Active Allergy Reactions Criticality Noted Date Comments Diphenhydramine 09/03/2018 Epinephrine Other (Please comment) 07/03/2023 Propranolol Hcl 09/29/2010 "TIA" - like reactions Lisinopril Cough 08/04/2008 Mepivacaine Hcl 06/30/2008 With epi: whole face sagged Simvastatin 12/25/2012 Myalgia-nl CK documented as of this encounter (statuses as of 07/25/2024) Medications Medication Sig Dispensed Refills Start Date End Date Status PENELOPE MORENO MISCIndications:DM type 2, goal A1c below 7 use as directed up to 4 times per day 100 Each 11 07/09/2013 Active Cyanocobalamin (B-12) 1000 MCG TABS Take 1 [...] for Hemorrhoids. Apply to hemorhoids 12/30/2022 Active Metoprolol Tartrate 50 MG Oral Tablet (Lopressor) Take 0.5 Tablets by mouth in the morning and 0.5 Tablets before bedtime. 02/02/2023 Active Clotrimazole-Betamet hasone 1-0.05 % External Cream Apply topically to affected area twice daily. 45 g 2 04/10/2023 Active Additional Information Patient not taking.Reported on 07/02/2024 [facility] Ultra In Vitro Strip (Glucose Blood)Indications:Ty pe 2 diabetes mellitus with hemoglobin A1c goal of less than 8.0% (HCC) Use as directed to check blood sugar once a day. 100 Strip 3 06/15/2023 Active Allopurinol 100 MG Oral Tablet (Zyloprim)Indication [...] OTHER MEDICATIONS 90 Tablet 1 02/13/2024 Active Docusate Sodium 100 MG Oral Capsule (Colace) Take 1 Capsule by mouth in the morning and 1 Capsule before bedtime. 30 Capsule 06/13/2024 Active Sennosides 8.6 MG Oral Tablet (Senokot) Take 2 Tablets by mouth in the morning. 30 Tablet 06/13/2024 Active metFORMIN HCl 1000 MG Oral Tablet [...] by mouth. In the morning. 07/17/2024 Active documented as of this encounter (statuses as of 07/25/2024) Active Problems Problem Noted Date Diagnosed Date Hydrocephalus 06/13/2024 Fall 06/11/2024 Intraventricular hemorrhage 06/11/2024 [...] as of this encounter (statuses as of 07/25/2024) Resolved Problems Problem Noted Date Diagnosed Date [...] nuclear stress test 05/08/2016 06/12/2017 Overview: 05/04-at [place] card++++ B12 deficiency 08/12/2015 06/12/2017 Overview: b12-231, [...] 5 yrs-Mely. C scope 02/28/2010 Dr. Lynn, [place] internal hemorrhoid, normal colon, repeat 5 years [...] as of this encounter (statuses as of 07/25/2024) Immunizations Name Administration Dates Next Due PPD [...] the money to buy more. Never true 06/20/20 23 Within the past 12 months, t he food you bought just didn't last and you didn't have money to get more. Never true 06/20/2023 Childcare Answer Date Recorded Do you feel overwhelmed with taking care of a child, family member or friend? No 06/20/2023 Does your family need help f inding childcare? (Household - for ages 0-17 years) Not on file 06/20/2023 Clothing Answer Date Recorded Have you been unable to get clothing when it was really needed? No 06/20/2023 Is your family able to get c lothes or diapers when needed? (Household - for ages 0-17 years) Not on file 06/20/2023 Personal Safety Answer Date Recorded Do you feel unsafe or have concerns for your saf ety? No 06/20/2023 Do you have concerns for you r family's safety? (Household - for ages 0-17 years) Not on file 06/20/2023 Utilities Answer Date Recorded Do you have trouble paying y our heating, water, or electric bill? No 06/20/2023 Is your family able to pay t he heat, water, or electric bill? (Household - for ages 0-17 years) Not on file 06/20/2023 Does your family have access to good internet? (Household - for ages 0-17 years) Not on file 06/20/2023 Employment Status Answer Date Recorded Are you unemployed or without regular income? No 06/20/2023 Does the household have a [facility] source of income? (Household - for ages 0-17 years) Not on file 06/20/2023 Social Connections Answer Date Recorded How often do you feel lonely or isolated from those around you? Sometimes 06/20/2023 Financial Resource Strain Answer Date R ecorded Do you have any trouble payi ng for your medications, or do you think you might in the future? No 06/20/2023 Does your family have troubl e paying for medicine? (Household - for ages 0-17 years) Not on file 06/20/2023 Transportation Needs Answer Date Record ed READ ONLY Do you have troubl e getting a ride to medical visits or work? Never True 06/20/2023 Does your family have a hard time getting a ride to doctors visits? (Household - for ages 0-17 years) Not on file 06/20/2023 Has lack of transportation k ept you from medical appointments, meetings, work, or from getting things needed for daily living? Check all that apply. (Adult - for ages 18 years and over) Not on file 06/20/2023 Do you (or your family) have trouble finding or paying for a ride (transportation)? (Household - for ages 0-17 years) Not on file 06/20/2023 Housing Stability Answer Date Recorded Do you currently live in a s helter or have no steady place to sleep at night? No 06/20/2023 READ ONLY Do you think you a re at risk of becoming homeless? No 06/20/2023 Does your family worry about paying for your home or becoming homeless? (Household - for ages 0-17 years) Not on file 0 06/20/2023 Are you homeless or worried that you might be in the future? (Adult - for ages 18 years and over) Not on file Are you (or your family) darby eless or worried that you might be in the future? (Household - for ages 0-17 years) Not on file Food Insecurity Answer Date Recorded Do you need food for this week? No 06/20/2023 Are you able to get enough f ood for your family? (Household - for ages 0-17 years) Not on file 06/20/2023 Does your family need food t his week? (Household - for ages 0-17 years) Not on file 06/20/2023 Do you always have enough fo od for your family? (Household - for ages 0-17 years) Not on file 06/20/2023 Sex and Gender Information Value Date Recorded Sex Assigned at Female 02/11/2019 1:06 PM EDT Gender Identity Female 02/11/2019 1:06 PM EDT Sexual Orientation Straight 02/11/2019 1: 06 PM EDT Job Start Date Occupation Industry Not on file Not on file Not on file documented as of this encounter Last Filed Vital Signs Vital Sign Reading Time Taken Comments Blood Pressure 124/72 07/25/2024 2:00 PM EDT Pulse 87 07/25/2024 2:00 PM EDT Temperature 36.7 C (98.1 F) 07/25/2024 2:00 PM ED T Respiratory Rate 16 07/25/2024 2:00 PM EDT Oxygen Saturation 95% 07/25/2024 2:00 PM EDT Inhaled Oxygen Concentration - - Weight 80.6 kg (177 lb 12.8 oz) 07/25/2024 2:00 PM EDT Height 147.3 cm (4' 10") 07/25/2024 2:00 PM EDT Body Mass Index 37.16 07/25/2024 2:00 PM EDT documented in this encounter Functional Status [...] No 06/10/2024 documented as of this encounter Progress Notes * Candelario Kovacs MD - 07/25/2024 2:09 PM EDT SUBJECTIVE: Alka Lawson is a 84 year old female. Chief Complaint Patient presents with Hospital Follow-Up Hospital Follow-Up Recent Admission: Patient was recently admitted to [facility] then [place]. The date of discharge was 07/17/24. Dischargereport received and reviewed. 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 She tried to get up but couldn't. Her called the ambulance and she was taken to [place]. She had a brain bleed and so they took her to [place] by ambulance. She was in the hospital a few days in [place]. They did CT scans to monitor the bleed. Then shewas discharged to [place] where they did therapy. Since discharge, things have been going "very slowly". She is slower in her movements than she was before - her walking, etc. She drags her right foot a little bit. She does not think things changed much when she was in [place]. She has been taking her coumadin as previously prescribed. She took a little walk yesterday. She was slow, but she made it up the hill to the bench and back down. She would like to get the flu shot. Patient Active Problem List Diagnosis Acquired hypothyroidism Dyslipidemia, goal LDL below 100 Type 2 diabetes mellitus with hemoglobin A1c goal of less than 8.0% (HCC) HTN, goal below 140/90 Gastroesophageal reflux disease with esophagitis Diabetic polyneuropathy associated with type 2 diabetes mellitus (HCC) Paroxysmal atrial fibrillation (HCC) NSVT (nonsustained ventricular tachycardia) (HCC) Gouty arthropathy Ambulatory dysfunction Extension of stroke (HCC) Hemiplegia, post-stroke (HCC) Complete heart block (HCC) Fall Intraventricular hemorrhage (HCC) Hydrocephalus (HCC) Current Outpatient Medications Medication Sig Dispense Refill ONETOUCH DELICA LANCETS MISC use as directed up to 4 times per day 100 Each 11 Cyanocobalamin (B-12) 1000 MCG TABS Take 1 [...] daily as needed for Hemorrhoids.Apply to hemorhoids Metoprolol Tartrate 50 MG Oral Tablet (Lopressor) Take 0.5 Tablets by mouth in the morning and 0.5 Tablets before bedtime. Double EncoreTouch Ultra In Vitro Strip (Glucose Blood) Use as directed to check blood sugar once a day. 100 Strip 3 Allopurinol 100 MG Oral Tablet (Zyloprim) Take [...] BREAKFAST OR OTHER MEDICATIONS 90 Tablet 1 Docusate Sodium 100 MG Oral Capsule (Colace) Take 1 Capsule by mouth in the morning and 1 Capsule before bedtime. 30 Capsule 0 Sennosides 8.6 MG Oral Tablet (Senokot) Take 2 Tablets by mouth in the morning. 30 Tablet 0 metFORMIN HCl 1000 MG Oral Tablet (Glucophage) [...] 1 Tablet by mouth. In the morning. Clotrimazole-Betamethasone 1-0.05 % External Cream Apply topically to affected area twice daily. (Patient not taking: Reported on 07/02/2024) 45 g 2 No current facility-administered medications for this visit. Current and discharge medications have been reconciled. Review of patient's allergies indicates: Allergen Reactions Diphenhydramine Epinephrine Other (Please comment) Inderal [Propranolol Hcl] "TIA" - like reactions Lisinopril Cough Mepivacaine Hcl With epi: whole face sagged Zocor [Simvastatin] Myalgia-nl CK OBJECTIVE: BP 124/72 | Pulse 87 | Temp 36.7 C (98.1 F) (Tympanic) | Resp 16 | Ht 1.473 m (4' 10") | Wt 80.6 kg (177 lb 12.8 oz) | SpO2 95% | BMI 37.16 kg/m | BSA 1.82 m REVIEW OF SYSTEMS: Review of Systems Constitutional: Negative for chills and fever. Respiratory: Negative for shortness of breath. Cardiovascular: Negative for chest pain. Gastrointestinal: Negative for nausea and vomiting. Neurological: Negative for dizziness. PHYSICAL EXAM: BP 124/72 | Pulse 87 | Temp 36.7 C (98.1 F) (Tympanic) | Resp 16 | Ht 1.473 m (4' 10") | Wt 80.6 kg (177 lb 12.8 oz) | SpO2 95% | BMI 37.16 kg/m | BSA 1.82 m Physical Exam Vitals reviewed. Constitutional: General: [...] edema. Left lower leg: No edema. Neurological: General: No focal deficit present. Mental Status: She is alert. Mental status is at baseline. ASSESSMENT: Hospital discharge follow-up (Primary) - DISCH MED RECON CUR MED LIS She is doing well s/p discharge. To my eye, she seems to be back to baseline clinically. Intraventricular hemorrhage (HCC) Neurosurg note reviewed; return PRN. Hydrocephalus, unspecified type (HCC) This is chronic and has been unchanged. Type 2 diabetes mellitus with hemoglobin A1c goal of less than 8.0% (HCC) Continue metformin and glipizide and f/u as scheduled. HTN, goal below 140/90 Well controlled. Continue hctz, metoprolol, losartan. Special screening for malignant neoplasms, colon - COLONOSCOPY, GI REFERRAL OP Discussed. Need for prophylactic vaccination and inoculation against influenza PLAN: Continue present medication(s): Follow up as needed and as scheduled. I spent a total of 30-39 minutes (exact time 33 mins) minutes on the date of service in preparation, delivery, and documentation of the care provided to Alka Lawson excluding any time spent in performance of separately billed services. Candelario Kovacs MD * Maria Alejandra Hagen, MED ASSIST - 07/25/2024 1:57 PM EDT Chief Complaint Patient presents with Hospital Follow-Up Hospital Follow-Up Medication Administration Flu and/or Pneumo Inj PT states she has a lot of pain in her left ear and on the left side of her head. States the pain comes and goes. Patient has been verbally educated on the need or importance of Shingles Vaccine and Flu Vaccine and has declined topic(s). PRE - ADMINISTRATION DOCUMENTATION Are you experiencing any cold symptoms or fever? No Have you had Guillain-[place] Syndrome (an illness that causes paralysis) within the last 6 weeks? No Have you had the flu shot in the past? YES Have you ever had a reaction to the flu shot? No ANNETTE Vicente, 07/25/2024 2:34 PM Immunization Administration Documentation Time Out Procedure Performed: Yes Patient Identified (Ask Name/Date of ): Yes Does the patient have a fever greater than 101 degrees today? No Patient allergic to latex? No VFC Stock: No Immunization(s) verified: Yes, Immunization Name: Flu, VIS Sheet(s) given: Yes Verified Side and Site: Yes Verified Shot(s) with Parent(s)/Patient: Yes documented in this encounter Miscellaneous Notes * Addendum Note - Candelario Kovacs MD - 07/25/2024 2:53 PM EDTAddended by: CANDELARIO KOVACS on: 07/25/2024 02:53 PM Modules accepted: Orders documented in this encounter Plan of Treatment Upcoming Encounters Date Type Department Care Team (Late st Contact Info) Description 07/30/2024 5:10 PM EDT Anticoagulation Pharmacy, [place] [address] [id number] Pharmacist1, [facility] [place] [address] [phone] 08/04/2024 2:45 PM EDT Appointment Radiology, [place] [address] [address] 08/28/2024 6:00 PM EDT Office Visit Family Practice, [place] [address] [phone] Candelario Kovacs MD [address] [address] 09/11/2024 2:00 PM EDT Office Visit Podiatry, [address] [place] [address] Azul Nye, DPM [address] [address] Scheduled Orders Name Type Priority Associated Diagnoses Orde r Schedule MAMMOGRAM SCREENING AMOR BILATERAL Medical Imaging Routine Encounter for screening mammogram for breast cancer Expected: 08/01/2024, Expires: 08/24/2025 Scheduled Procedures Name Priority Associated Diagnoses Date/Ti [...] Special screening for malignant neoplasms, colon Ordered: 07/25/2024 Health Maintenance Due Date Last Done Comments Zoster Vaccines (2 of 3) 04/09/2012 02/13/2012 Colonoscopy 10/12/2023 10/12/2020, 09/20, 09/28/2017, Additional history exists Albumin/Creatinine Ratio 06/08/2024 023, 11/09/2022, 04/06/2020, Additional history exists TSH 06/08/2024 06/08/2023, 11/20, 12/08/2022, Additional history exists HbA1c 06/12/2024 12/13/2023, 05/20, 12/05/2022, Additional history exists Adult Wellness Visit 06/20/2024 06/20/2023, 06/19/2022, 06/17/2021 Depression Screening 06/20/2024 06/20/2023 COVID-19 Vaccine ( season) 2024 Diabetic Foot Exam 02/06/2025 02/07/2024, 0 02/14/2023, 05/04/2022, Additional history exists Diabetic Eye Exam 03/17/2025 03/17/2024, , 03/16/2023, Additional history exists GFR 07/11/2025 07/11/2024, 06/19, 06/27/2024, Additional history exists DXA Scan 06/05/2026 06/05/2019, [...] Hospital discharge follow-up- Primary Other follow-up examination Intraventricular hemorrhage (HCC) Intracerebral hemorrhage Hydrocephalus, unspecified type (HCC) Type 2 diabetes mellitus with hemoglobin A1c goal of less than 8.0% (HCC) HTN, goal below 140/90 Unspecified essential hypertension Special screening for malignant neoplasms, colon Need for prophylactic vaccination and inoculation against influenza Encounter for screening mammogram for breast cancer documented in this encounter Advance Directives * Full Code (Latest Code Status on File) Date Activated Date Inactivated Comments 06/10/2024 9:19 [...] Full Code Date Activated Date Inactivated Comments 07/27/2021 5:50 AM 07/31/2021 4:15 PM This order re flects the patients wishes and were consensually agreed upon. Question Answer Comments Discussion of Advance Directives occurred with: Not Discussed Care Teams Hybrid Tester Relationship Specialty Start Date End Date Candelario Kovacs MD [address] [id number] PCP - General Family Medicine 08/05/21 documented as of this encounter
--- OUTSIDE RECORDS SUMMARY | 2024-08-21 14:09 | External Medical Summary ---
Author Name Unknown Address Unknown Organization K1F:[facility] [place] [id number] Laboratory Report Ordering Provider Test Date Status PILIAIMEEDARRYL 07/14/2024 07:02:00 Final Warfarin Therapy
INR: 2 .0-3.0 conventional anticoagulation
INR: 2.5- 3.5 high intensity anticoagulation Observation Date Value Abnormality Reference (Units ) Status PT 07/14/2024 07:02:00 28.5 Above high normal 11 .6-15.2 (seconds) Final INR 07/14/2024 07:02:00 2.6 Above high normal 0. 8-1.2 Final Performing Location [facility] - [address] [place] [id number]
--- OUTSIDE RECORDS SUMMARY | 2024-08-21 14:09 | External Medical Summary | Summary of Care ---
Author Name Unknown Organization [facility] Address [address] [place] [address] Phone [phone] Care Team Providers Care Retort Furnace Operator Name Role Phone Candelario Kovacs MD Primary Care Provider Reason for Referral * Ancillary Services (Within 30 days (routine)) - Authorized Specialty Diagnoses / Procedures Referred By Bernard jo Referred To Contact Gastroenterology Diagnoses Special screening for malignant neoplasms, colon Candelario Kovacs MD [address] [place] [address] Referral ID Status Reason Start Date Expiration Date Visits Requested Visits Authorized [id number] Authorized Ancillary Services Required 07/25/[phone] Question Answer Referral Priority Within 30 days (routine) Where should this appointment be scheduled? Brandie Comments ALERT: Do not order for pediatric patients (18 years or younger). Cancel off screen and order PEDS GASTROENTEROLOGY CONSULT (Type: 1 visit only-Evaluate and Treat) The following Pt. Instructions are available: - Gastro Colonoscopy Prep Instructions [[id number]] - Gastro Colonoscopy Prep Instructions (Chinese Version) [[id number]] Go to the Pt. Instructions section within [...] Description 07/25/2024 2:00 PM EDT Office Visit [facility] [address] [phone] Candelario Kovacs MD [address] [phone] Hospital discharge follow-up*; Intraventricular hemorrhage (HCC); Hydrocephalus, [...] Additional Information Patient not taking.Reported on 07/02/2024 [email or web address] Ultra In Vitro Strip (Glucose Blood)Indications:Ty pe [...] nuclear stress test 05/08/2016 06/12/2017 Overview: 05/04-at [place] card++++ B12 deficiency 08/12/2015 06/12/2017 Overview: b12-231, [...] 5 yrs-Mely. C scope 02/28/2010 Dr. Lynn, [place] internal hemorrhoid, normal colon, repeat 5 years [...] No 06/20/2023 Does the household have a [facility] source of income? (Household - [...] Recent Admission: Patient was recently admitted to [facility] then [place]. The date of discharge was 07/17/24. Dischargereport received and reviewed. 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 She tried to get up but couldn't. Her called the ambulance and she was taken to [place]. She had a brain bleed and so they took her to [place] by ambulance. She was in the hospital a few days in [place]. They did CT scans to monitor the bleed. Then shewas discharged to [place] where they did therapy. Since discharge, things have been going "very slowly". She is slower in her movements than she was before - her walking, etc. She drags her right foot a little bit. She does not think things changed much when she was in [place]. She has been taking her coumadin as [...] the morning and 0.5 Tablets before bedtime. INXPOTouch Ultra In Vitro Strip (Glucose Blood) Use [...] symptoms or fever? No Have you had Guillain-[place] Syndrome (an illness that causes paralysis) within [...] Description 07/30/2024 5:10 PM EDT Anticoagulation Pharmacy, [place] [address] [address] Pharmacist1, [facility] [place] [address] [phone] 08/28/2024 6:00 PM EDT [facility] [phone] Candelario Kovacs MD [address] [facility] [place] [address] 09/11/2024 2:00 PM EDT Office Visit Podiatry, [facility] [address] [facility] [address] [place] [phone] Azul Nye DPM [address] [facility] [address] Scheduled Orders Name Type Priority Associated Diagnoses [...] Directives occurred with: Not Discussed Care Teams Retort Furnace Operator Relationship Specialty Start Date End Date Candelario Kovacs MD [address] [phone] PCP - General Family Medicine 08/05/21 documented as of this encounter
--- OUTSIDE RECORDS SUMMARY | 2024-08-21 14:09 | External Medical Summary ---
Author Name Unknown Address Unknown Organization K1F:[facility] [place] [id number] Laboratory Report Ordering Provider Test Date Status NEY ALEJANDRE 07/08/2024 06:16:00 Final Warfarin Therapy
INR: 2 .0-3.0 conventional anticoagulation
INR: 2.5- 3.5 high intensity anticoagulation Observation Date Value Abnormality Reference (Units ) Status PT 07/08/2024 06:16:00 13.1 11.6-15.2 (seconds) Final INR 07/08/2024 06:16:00 1.0 0.8-1.2 Final Performing Location [facility] - [address] [place] [id number]
--- OUTSIDE RECORDS SUMMARY | 2024-08-21 14:09 | External Medical Summary ---
Author Name Unknown Address Unknown Organization K1F:[facility] [place] [id number] Laboratory Report Ordering Provider Test Date Status NEY ALEJANDRE 07/10/2024 06:42:00 Final Warfarin Therapy
INR: 2 .0-3.0 conventional anticoagulation
INR: 2.5- 3.5 high intensity anticoagulation Observation Date Value Abnormality Reference (Units ) Status PT 07/10/2024 06:42:00 14.4 11.6-15.2 (seconds) Final INR 07/10/2024 06:42:00 1.1 0.8-1.2 Final Performing Location LAB[facility]ORY [facility] - [address] [place] [id number]
--- OUTSIDE RECORDS SUMMARY | 2024-08-21 14:09 | External Medical Summary ---
Author Name Unknown Address Unknown Organization K1F:LABORATORY [facility] - [facility] [address] [place] [id number] Laboratory Report Ordering Provider Test Date Status NEY ALEJANDRE 07/11/2024 06:24:00 Final Observation Date Value Abnormality Reference (Units ) Status WBC, Total 07/11/2024 06:24:00 9.38 4.00-10.80 (K/uL) Final RBC 07/11/2024 06:24:00 4.30 3.85-5.15 (M/uL) Final Hemoglobin 07/11/2024 06:24:00 12.6 12.0-15.3 (g/dL) Final HCT 07/11/2024 06:24:00 39.0 36.0-45.2 (%) Final MCV 07/11/2024 06:24:00 90.7 81.5-97.5 (fL) Final MCH 07/11/2024 06:24:00 29.3 27.0-34.0 (pg) Final MCHC 07/11/2024 06:24:00 32.3 32.0-36.0 (g/dL) Final RDW 07/11/2024 06:24:00 17.2 11.5-15.5 (%) Final Platelets 07/11/2024 06:24:00 293 140-400 (K/uL) Final MPV 07/11/2024 06:24:00 11.0 6.6-11.1 (fL) Final Nucleated erythrocytes/100 leukocytes [Ratio] in Blood by Automated count 07/11/2024 06:24:00 0 <=0 (/100 WBCs) Final Performing Location LABORATORY [facility] - [address] [place] [id number]
--- OUTSIDE RECORDS SUMMARY | 2024-08-21 14:09 | External Medical Summary | Summary of Care ---
Author Name Unknown Organization [facility] [address] [place] [address] Phone [phone] Care Team Providers Care Ppap Coordinator Name Role Phone Jag Kovacs MD Primary Care Provider Reason for Referral * Precert (Within 10 days (routine)) - Authorized Specialty Diagnoses / Procedures Referred By Bernard jo Referred To Contact Radiology Diagnoses Fall, initial encounter Intraventricular hemorrhage (HCC) Procedures CT HEAD/BRAIN WO CONTRAST Osorio Jj PA-C [address] [place] [address] Referral ID Status Reason Start Date Expiration Date V isits Requested Visits Authorized [id number] Authorized 06/25/2024 999 999 Reason for Visit * Precert (Within 10 days (routine)) - Authorized Specialty Diagnoses / Procedures Referred By Bernard jo Referred To Contact Radiology Diagnoses Fall, initial encounter Intraventricular hemorrhage (HCC) Procedures CT HEAD/BRAIN WO CONTRAST Osorio Jj PA-C [address] [place] [address] Referral ID Status Reason Start Date Expiration Date V isits Requested Visits Authorized [id number] Authorized 06/25/2024 999 999 Encounter Details Date Type Department Care Team (Latest Contact Info) Description 07/04/2024 12:38 PM EDT - 07/04/2024 11:59 PM EDT Hospital Encounter Radiology, [address] [place] [id number] Arrived Discharge Disposition: Home - Self Care Allergies Active Allergy Reactions Criticality Noted Date Comments Diphenhydramine 09/03/2018 Epinephrine Other (Please comment) 07/03/2023 Propranolol Hcl 09/29/2010 "TIA" - like reactions Lisinopril Cough 08/04/2008 Mepivacaine Hcl 06/30/2008 With epi: whole face sagged Simvastatin 12/25/2012 Myalgia-nl CK documented as of this encounter (statuses as of 07/05/2024) Medications Medication Sig Dispensed Refills Start Date [...] Additional Information Patient not taking.Reported on 07/02/2024 [employer] Ultra In Vitro Strip (Glucose Blood)Indications:Ty pe [...] into the rectum in the morning. Active documented as of this encounter (statuses as of 07/05/2024) Active Problems Problem Noted Date Diagnosed Date [...] as of this encounter (statuses as of 07/05/2024) Resolved Problems Problem Noted Date Diagnosed Date [...] nuclear stress test 05/08/2016 06/12/2017 Overview: 05/04-at [place] card++++ B12 deficiency 08/12/2015 06/12/2017 Overview: b12-231, [...] Sec hemorrhoids--improved on iron suppl--defers sg eval> >3/15-dc fe Hypercalcemia 12/25/2012 08/03/2014 Overview: Resolved off [...] as of this encounter (statuses as of 07/05/2024) Immunizations Name Administration Dates Next Due PPD 04/25/2005 Pneumococcal Conjugate Vacc, 13 Valent (Prevnar) 08/06/2015 Pneumococcal Polysaccharide PPV23 (Pneumovax) 11/16/2010 Season Influenza, Cell Cultu re, 18+ Yrs, With Preserv (Flucelvax) 10/28/2013 Season Influenza, Quad, PF, Adjuvanted, 65+ Yrs, IM (FLUAD) 09/30/2020 Seasonal Influenza Virus Vac cine, Unspecified Formulation 09/19/2018,09/14/2017,09/14/2016,08/03,09/20/2012,08/11/2011,09/29/2010 ,09/15/2008,11/13/2007,10/09/2006,08/20 Seasonal Influenza, PF, 6 M & above, IM , (FluLaval or Fluzone) 10/02/2019,09/19/2018,09/14/2017 Seasonal Influenza, Quadriva lent Hd (Fluzone Hd) 08/03/2023,09/13/2022,11/07/2021 Seasonal Influenza, Quadriva lent, No Preserve, IM 09/14/2016 Seasonal Influenza, Split, I IV3, With Preserve, Inj 08/06/2015,08/03/2014,09/20/2012,08/11,09/29/2010,09/15/2008,11/13/2007 ,10/09/2006,09/08/1998 TDAP (age 10 and older)(Boostrix) [...] No 06/20/2023 Does the household have a re gular [...] No 06/10/2024 documented as of this encounter Plan of Treatment Upcoming Encounters Date Type Department Care Team (Late st Contact Info) Description 08/28/2024 6:00 PM EDT Office Visit [facility] [address] [facility] [place] [phone] Jag [facility]acs [facility] [place] [address] 09/11/2024 2:00 PM EDT Office Visit Podiatry, [facility] [address] [facility] [place] [address] Azul Nye DPM [address] [facility] [place] [address] Pending Results Name Type Priority Associated Diagnoses Date /Time CT HEAD/BRAIN WO CONTRAST Medical Imaging Routine Fall, initial encounter Intraventricular hemorrhage (HCC) 07/04/2024 1:05 PM EDT Scheduled Orders Name Type Priority Associated Diagnoses Orde r Schedule CT HEAD/BRAIN WO CONTRAST Medical Imaging Routine Fall, initial encounter Intraventricular hemorrhage (HCC) 1 Occurrences starting 07/04/2024 until 07/04/2024 Scheduled Procedures Name Priority Associated Diagnoses Date/Ti me COLONOSCOPY FLEXIBLE PROXIMAL DIAGNOSTIC Recall Special screening for malignant neoplasms, colon GERD (gastroesophageal reflux disease) ESOPHAGOGASTRODUODENOSCOPY ( EGD), FLEXIBLE, TRANSORAL, DIAGNOSTIC Recall Special screening for malignant neoplasms, colon GERD (gastroesophageal reflux disease) Health Maintenance Due Date Last Done Comments Zoster Vaccines (2 of 3) 04/09/2012 02/13/2012 COVID-19 Vaccine ( season) 2023 Colonoscopy 10/12/2023 10/12/2020, 09/20, 09/28/2017, Additional history exists Albumin/Creatinine Ratio 06/08/2024 023, 11/09/2022, 04/06/2020, Additional history exists TSH 06/08/2024 06/08/2023, 11/20, 12/08/2022, Additional history exists HbA1c 06/12/2024 12/13/2023, 05/20, 12/05/2022, Additional history exists Adult Wellness Visit 06/20/2024 06/20/2023, 06/19/2022, 06/17/2021 Depression Screening 06/20/2024 06/20/2023 Influenza Vaccine (FLU shot) (#1) 2024 08/03/2023, 09/13/2022, 11/07/2021, Additional history exists Diabetic Foot Exam 02/06/2025 02/07/2024, 0 02/14/2023, 05/04/2022, Additional history exists Diabetic Eye Exam 03/17/2025 03/17/2024, , 03/16/2023, Additional history exists GFR 07/04/2025 07/04/2024, 08/0 07/2024, 06/20/2024, Additional history exists DXA Scan 06/05/2026 06/05/2019, 08/20, 09/10/2012 DTaP,Tdap,and Td Vaccines (3 - Td or Tdap) 01/29/2029 01/29/2019, 05/28/2012 Pneumococcal Vaccine: 65+ Years Completed 08/06/2015, 11/16/2010 HPV (Gardasil) Vaccine Aged Out No lo [...] as of this encounter Visit Diagnoses Diagnosis Fall, initial encounter Intraventricular hemorrhage (HCC) Intracerebral hemorrhage documented in this encounter Advance Directives * [...] Directives occurred with: Not Discussed Care Teams Ppap Coordinator Relationship Specialty Start Date End Date Jag oKvacs MD [address] [place] [address] PCP - General Family Medicine 08/05/21 documented as of this encounter
--- OUTSIDE RECORDS SUMMARY | 2024-08-21 14:09 | External Medical Summary ---
Author Name Unknown Address Unknown Organization K1F:LABORATORY [facility] - [address] [place] [id number] Laboratory Report Ordering Provider Test Date Status PILINERILULÚ 07/16/2024 06:20:00 Final Warfarin Therapy
INR: 2 .0-3.0 conventional anticoagulation
INR: 2.5- 3.5 high intensity anticoagulation Observation Date Value Abnormality Reference (Units ) Status PT 07/16/2024 06:20:00 25.5 Above high normal 11 .6-15.2 (seconds) Final INR 07/16/2024 06:20:00 2.3 Above high normal 0. 8-1.2 Final Performing Location LABORATORY [facility] - [address] [place] [address]
--- OUTSIDE RECORDS SUMMARY | 2024-08-21 14:09 | External Medical Summary | Summary of Care ---
Author Name Unknown Organization [facility] Address [address] [place] [address] Phone [phone] Care Team Providers Care Eyelet Row Marker Name Role Phone Jag Kovacs MD Primary Care Provider Reason for Visit * Reason Comments Dosage Adjustment Via Phone (anticoag Cl inic) Encounter Details Date Type Department Care Team (Latest Contact Info) Description 07/16/2024 5:10 PM EDT Anticoagulation Pharmacy, [place] [address] [place] [address] Pharmacist1, [facility] [place] [address] [place] [address] Anticoagulation management encounter*; Hemiplegia, post-stroke (HCC); Paroxysmal atrial fibrillation (HCC) Allergies Active Allergy Reactions Criticality Noted Date Comments Diphenhydramine 09/03/2018 Epinephrine Other (Please comment) 07/03/2023 Propranolol Hcl 09/29/2010 "TIA" - like reactions Lisinopril Cough 08/04/2008 Mepivacaine Hcl 06/30/2008 With epi: whole face sagged Simvastatin 12/25/2012 Myalgia-nl CK documented as of this encounter (statuses as of 07/16/2024) Medications Medication Sig Dispensed Refills Start Date [...] Additional Information Patient not taking.Reported on 07/02/2024 [employer] Ultra In Vitro Strip (Glucose Blood)Indications:Ty pe [...] as of this encounter (statuses as of 07/16/2024) Active Problems Problem Noted Date Diagnosed Date [...] .(stress test s/o apical ischemia) Outside echo: 4/08: Nl EF: 65%. No RWMA. No valvular [...] as of this encounter (statuses as of 07/16/2024) Resolved Problems Problem Noted Date Diagnosed Date [...] stress test 05/08/2016 06/12/2017 Overview: 05/04-at [place] card++++ B12 deficiency 08/12/2015 06/12/2017 Overview: b12-231, [...] -nml>nl 03/04 Other screening mammogram 09/10/2012 Overview: Neg--08/30;;10/01;10/02;;11/16/15, Family history of colon cancer 05/28/2012 06/12/2017 [...] 5 yrs-Mely. Noel scope 02/28/2010 Dr. Lynn, [place] internal hemorrhoid, normal colon, repeat 5 years [...] as of this encounter (statuses as of 07/16/2024) Immunizations Name Administration Dates Next Due PPD [...] 06/20/2023 Does the household have a re lar [...] Notes * Jose Martin Castellon RPh - 07/16/2024 12:48 PM EDT Medication Therapy Disease Management - Anticoagulation Patient: Alka Lawson | : 1940 Patient currently at [facility]. Warfarin restarted and managed by [facility] provider. INR 2.3 today. Will follow-up in 2 weeks on discharge status. Jose Martin Castellon RPh Clinical Pharmacist 07/16/2024, 12:48 PM documented in this encounter Plan of Treatment Upcoming Encounters Date Type Department Care Team (Late st Contact Info) Description 07/25/2024 2:00 PM EDT Office Visit [facility] [address] [place] [phone] Jag Kovacs MD [address] [place] [address] 07/30/2024 5:10 PM EDT Anticoagulation Pharmacy, [place] [address] [place] [address] Pharmacist1, [facility] [place] [address] [place] [address] 08/28/2024 6:00 PM EDT Office Visit [facility] [address] [place] [phone] Jag Kovacs MD [address] [phone] 09/11/2024 2:00 PM EDT Office Visit Podiatry, [facility] [address] [place] [address] Azul Nye DPM [address] [facility] [place] [address] Scheduled Procedures Name Priority Associated Diagnoses Date/Ti [...] (HCC) Atrial fibrillation documented in this encounter Advance Directives * [...] Directives occurred with: Not Discussed Care Teams Eyelet Row Marker Relationship Specialty Start Date End Date Jag Kovacs MD [address] [place] [phone] PCP - General Family Medicine 08/05/21 documented as of this encounter
--- OUTSIDE RECORDS SUMMARY | 2024-08-21 14:09 | External Medical Summary ---
Author Name Unknown Address Unknown Organization K1F:LABORATORY [facility] - [place] [id number] Laboratory Report Ordering Provider Test Date Status NEY ALEJANDRE 07/09/2024 06:30:00 Final Warfarin Therapy
INR: 2 .0-3.0 conventional anticoagulation
INR: 2.5- 3.5 high intensity anticoagulation Observation Date Value Abnormality Reference (Units ) Status PT 07/09/2024 06:30:00 12.9 11.6-15.2 (seconds) Final INR 07/09/2024 06:30:00 1.0 0.8-1.2 Final Performing Location LABORATORY [facility] - [address] [id number]
--- OUTSIDE RECORDS SUMMARY | 2024-08-21 14:09 | External Medical Summary ---
Author Name Unknown Address Unknown Organization K1F:LABORATORY [facility] - [address] [place] [id number] Laboratory Report Ordering Provider Test Date Status NEY ALEJANDRE 07/11/2024 06:24:00 Final Warfarin Therapy
INR: 2 .0-3.0 conventional anticoagulation
INR: 2.5- 3.5 high intensity anticoagulation Observation Date Value Abnormality Reference (Units ) Status PT 07/11/2024 06:24:00 15.7 Above high normal 11 .6-15.2 (seconds) Final INR 07/11/2024 06:24:00 1.2 0.8-1.2 Final Performing Location LABORATORY [facility] - [address] [address]
--- OUTSIDE RECORDS SUMMARY | 2024-08-21 14:09 | External Medical Summary | Summary of Care ---
Author Name Unknown Organization [facility] Address [address] [place] [address] Phone [phone] Care Team Providers Care Interventional Pain Physician Name Role Phone Jag Kovacs MD Primary Care Provider Encounter Details Date Type Department Care Team (Late st Contact Info) Description 07/25/2024 Telephone [facility] [address] [place] [phone] Jag Kovacs MD [address] [place] [address] Allergies Active Allergy Reactions Criticality Noted Date [...] Additional Information Patient not taking.Reported on 07/02/2024 DWNLD Ultra In Vitro Strip (Glucose Blood)Indications:Ty pe [...] nuclear stress test 05/08/2016 06/12/2017 Overview: 05/04-at [place] card++++ B12 deficiency 08/12/2015 06/12/2017 Overview: b12-231, [...] 5 yrs-Mely. Noel scope 02/28/2010 Dr. Lynn [place] internal hemorrhoid, normal colon, repeat 5 years [...] (15 years old or older) No 06/10/20 24 Cognitive Status Response Date of Assessm ent [...] she has her last one done in [place] and would like to have it done there again. Pt is a diabetic and does take coumadin. And would prefer an evening appointment. Please assist with scheduling if possible. Thank you! documented in this encounter Plan of Treatment Upcoming Encounters Date Type Department Care Team (Late st Contact Info) Description 07/30/2024 5:10 PM EDT Anticoagulation Pharmacy, [place] [address] [place] [address] Pharmacist1, [facility] [place] [address] [place] [address] 08/04/2024 2:45 PM EDT Appointment Radiology, [place] [address] [place] [address] 08/28/2024 6:00 PM EDT Office Visit Family Practice, [place] [address] [phone] Jag Kovacs MD [address] [place] [address] [address] 09/11/2024 2:00 PM EDT Office Visit Podiatry, [address] [place] [address] Azul Nye, DPM [address] [facility] [place] [address] Scheduled Procedures Name Priority Associated Diagnoses Date/Ti [...] Directives occurred with: Not Discussed Care Teams Interventional Pain Physician Relationship Specialty Start Date End Date Jag Kovacs MD [address] [place] [address] PCP - General Family Medicine 08/05/21 documented as of this encounter
--- OUTSIDE RECORDS SUMMARY | 2024-08-21 14:09 | External Medical Summary ---
Author Name Unknown Address Unknown Organization K1F:LABORATORY [facility] - [address] [facility] [place] [address] Laboratory Report Ordering Provider Test Date Status NEY ALEJANDRE 07/11/2024 06:24:00 Final Observation Date Value Abnormality Reference (Units ) Status SYNC LEUKOCYTES IN BLOOD BY AUTOMATED COUNT 07/11/2024 06:24:00 9.38 4.00-10.80 (K/uL) Final Segs 07/11/2024 06:24:00 62.0 40.0-75.0 (%) Final Lymphs % 07/11/2024 06:24:00 25.8 18.0-42.0 (%) Final Monos 07/11/2024 06:24:00 8.5 1.0-11.0 (%) Final Eosinophils 07/11/2024 06:24:00 2.9 0.0-6.0 (%) Final Basos 07/11/2024 06:24:00 0.3 0.0-2.0 (%) Final Immature Granulocyte, Percent 07/11/2024 06:24:00 0.5 0.0-2.0 (%) Final Absolute Segs 07/11/2024 06:24:00 5.81 1.80-7.70 (K/uL) Final Lymphs, absolute 07/11/2024 06:24:00 2.42 1.00-4.80 (K/ul) Final Monos, Abs 07/11/2024 06:24:00 0.80 0.00-1.10 (K/uL) Final Eos, Abs 07/11/2024 06:24:00 0.27 0.00-0.70 (K/uL) Final Basos, Abs 07/11/2024 06:24:00 0.03 0.00-0.20 (K/uL) Final Immature Granulocytes, Number 07/11/2024 06:24:00 0.05 0.00-0.20 (K/uL) Final Performing Location LABORATORY [facility] - [address] [place] [id number]
--- OUTSIDE RECORDS SUMMARY | 2024-08-21 14:10 | External Medical Summary ---
Author Name Unknown Address Unknown Organization K1F:LABORATORY [facility] - [address] [place] [id number] Laboratory Report Ordering Provider Test Date Status NEY ALEJANDRE 07/04/2024 06:15:00 Final Observation Date Value Abnormality Reference (Units ) Status WBC, Total 07/04/2024 06:15:00 8.59 4.00-10.80 (K/uL) Final RBC 07/04/2024 06:15:00 4.15 3.85-5.15 (M/uL) Final Hemoglobin 07/04/2024 06:15:00 12.1 12.0-15.3 (g/dL) Final HCT 07/04/2024 06:15:00 37.5 36.0-45.2 (%) Final MCV 07/04/2024 06:15:00 90.4 81.5-97.5 (fL) Final MCH 07/04/2024 06:15:00 29.2 27.0-34.0 (pg) Final MCHC 07/04/2024 06:15:00 32.3 32.0-36.0 (g/dL) Final RDW 07/04/2024 06:15:00 17.1 11.5-15.5 (%) Final Platelets 07/04/2024 06:15:00 244 140-400 (K/uL) Final MPV 07/04/2024 06:15:00 10.4 6.6-11.1 (fL) Final Nucleated erythrocytes/100 leukocytes [Ratio] in Blood by Automated count 07/04/2024 06:15:00 0 <=0 (/100 WBCs) Final Performing Location LABORATORY [facility] - [address] [address]
--- OUTSIDE RECORDS SUMMARY | 2024-08-21 14:10 | External Medical Summary ---
Author Name Unknown Address Unknown Organization K1F:LABORATORY [facility] - [address] [place] [id number] Laboratory Report Ordering Provider Test Date Status NEY ALEJANDRE 06/27/2024 06:54:00 Final Observation Date Value Abnormality Reference (Units ) Status BUN 06/27/2024 06:54:00 14 6-20 (mg/dL) Final Creatinine 06/27/2024 06:54:00 0.9 0.5-1.0 (mg/dL) Final Glomerular filtration rate/1.73 sq M.predicted [Volume Rate/Area] in Serum, Plasma or Blood by Creatinine-based formula (CKD-EPI) 06/27/2024 06:54:00 68 >=60 (mL/min) Final eGFR is calculated based on the CKD-EPI 2020 equation. Sodium 06/27/2024 06:54:00 138 135-146 (m mol/L) Final Potassium 06/27/2024 06:54:00 3.7 3.5-5.1 (m mol/L) Final Cl 06/27/2024 06:54:00 98 98-107 (mm ol/L) Final CO2 06/27/2024 06:54:00 26 22-32 (mmo l/L) Final Anion gap 06/27/2024 06:54:00 14 7-15 (mmol /L) Final Glucose 06/27/2024 06:54:00 87 70-120 (mg /dL) Final Calcium 06/27/2024 06:54:00 8.9 8.4-10.2 ( mg/dL) Final Performing Location LABORATORY [facility] - [address] [address]
--- OUTSIDE RECORDS SUMMARY | 2024-08-21 14:10 | External Medical Summary ---
Author Name Unknown Address Unknown Organization K1F:LABORATORY [facility] - [facility] [address] [place] [address] Laboratory Report Ordering Provider Test Date Status NEY ALEJANDRE 06/20/2024 06:22:00 Final Observation Date Value Abnormality Reference (Units ) Status WBC, Total 06/20/2024 06:22:00 8.60 4.00-10.80 (K/uL) Final RBC 06/20/2024 06:22:00 4.37 3.85-5.15 (M/uL) Final Hemoglobin 06/20/2024 06:22:00 12.9 12.0-15.3 (g/dL) Final HCT 06/20/2024 06:22:00 39.3 36.0-45.2 (%) Final MCV 06/20/2024 06:22:00 89.9 81.5-97.5 (fL) Final MCH 06/20/2024 06:22:00 29.5 27.0-34.0 (pg) Final MCHC 06/20/2024 06:22:00 32.8 32.0-36.0 (g/dL) Final RDW 06/20/2024 06:22:00 17.1 11.5-15.5 (%) Final Platelets 06/20/2024 06:22:00 237 140-400 (K/uL) Final MPV 06/20/2024 06:22:00 10.9 6.6-11.1 (fL) Final Nucleated erythrocytes/100 leukocytes [Ratio] in Blood by Automated count 06/20/2024 06:22:00 0 <=0 (/100 WBCs) Final Performing Location LABORATORY [facility] - [address] [place] [address]
--- OUTSIDE RECORDS SUMMARY | 2024-08-21 14:10 | External Medical Summary | Summary of Care ---
Author Name Unknown Organization [facility] Address [address] [place] [address] Phone [phone] Care Team Providers Care Manufacturing Storeperson Name Role Phone Jag Kovacs MD Primary Care Provider Reason for Visit * Reason Comments Return Neuro Encounter Details Date Type Department Care Team ([facility] st Contact Info) Description 07/02/2024 9:20 AM EDT Office Visit Neurosurgery, [place] [address] [phone] [facility] [place] [address] [place] [address] Intraventricular hemorrhage (HCC)* Allergies Active Allergy Reactions Criticality Noted Date Comments Diphenhydramine 09/03/2018 Epinephrine Other (Please comment) 07/03/2023 Propranolol Hcl 09/29/2010 "TIA" - like reactions Lisinopril Cough 08/04/2008 Mepivacaine Hcl 06/30/2008 With epi: whole face sagged Simvastatin 12/25/2012 Myalgia-nl CK documented as of this encounter (statuses as of 07/02/2024) Medications Medication Sig Dispensed Refills Start Date [...] Additional Information Patient not taking.Reported on 07/02/2024 FREECULTR Ultra In Vitro Strip (Glucose Blood)Indications:Ty pe [...] as of this encounter (statuses as of 07/02/2024) Active Problems Problem Noted Date Diagnosed Date [...] as of this encounter (statuses as of 07/02/2024) Resolved Problems Problem Noted Date Diagnosed Date [...] nuclear stress test 05/08/2016 06/12/2017 Overview: 05/04-at [place] card++++ B12 deficiency 08/12/2015 06/12/2017 Overview: b12-231, [...] 5 yrs-Mely. C scope 02/28/2010 Dr. Lynn, [place] internal hemorrhoid, normal colon, repeat 5 years [...] as of this encounter (statuses as of 07/02/2024) Immunizations Name Administration Dates Next Due PPD [...] No 06/20/2023 Does the household have a [facility] source of income? (Household - for [...] Sign Reading Time Taken Comments Blood Pressure 132/72 07/02/2024 9:23 AM EDT Pulse 75 07/02/2024 9:23 AM EDT Temperature 37 C (98.6 F) 07/02/2024 9:23 AM EDT Respiratory Rate - - Oxygen Saturation - - Inhaled Oxygen Concentration - - Weight - - Height 147.3 cm (4' 10") 07/02/2024 9:23 AM EDT Body Mass Index - - documented in [...] as of this encounter Progress Notes * Adriana Weiss PA-C - 07/02/2024 9:20 AM EDT PROGRESS NOTE - [place] [facility] [address] Name: Alka Lawson Date: 07/02/2024 Time: 7:04 AM INTERVAL HISTORY: Alka Lawson is an 84-year-old female with T2 DM diabetic polyneuropathy hypothyroidism atrial fibrillation (coumadin - currently holding), and SVT complete heart block, HTN, previous left MCA stroke with residual word-finding difficulties dysarthria, and ambulatory dysfunction that presents to the clinic for routine follow up evaluation from a traumatic IVH sustained status post 2 mechanical falls in the week prior. Upon arrival patient was reversed with Kcentra vitamin K. Serial imaging wascompleted lead stabilized. Patient was discharged with [facility] per protocol follow up imaging was ordered. PAST MEDICAL HISTORY: Past Medical History: Diagnosis [...] eval> >01/31-dc fe ILD (interstitial lung disease) ([facility]) 02/14/2023 Internal hemorrhoids 01/26/2014 Intraventricular hemorrhage ([facility]) 06/11/2024 Mixed incontinence urge and stress (male)(female) 11/16/2010 Nocturnal hypoxia 05/14/201506/02--night ox 01/31 my read-desaturation to 87%.-?pattern osas. >refer-sleep cl eval-[facility] sleep study>08/12/15--no osas, -fu 09/02---rec O2 defers Obesity, Class III, BMI 40-49.9 (morbid obesity) ([facility]) 05/03/2010 Per Obesity Protocol, #19 ICD-10 update of inactive term Pneumonia due to COVID-19 virus 07/27/2021 Severe obesity with body mass index (BMI) of 35.0 to 35.9 and comorbidity ([facility]) 05/11/2011 Stroke ([facility]) Trochanteric bursitis of right hip 11/27/2012 Urgency incontinence 10/02/2014 Varicose vein of leg 05/28/2012 Mild lt leg PAST SURGICAL HISTORY: Past Surgical History: Procedure Laterality Date BX BREAST PERCUT W/O IMAGE Left 05/02/2017 05/02/2017 left breast , ultrasound guided core bx dx intraductal papillomas - [facility] COLONOSCOPY, DIAGNOSTIC (RECTUM) 03/12/2015 COLONOSCOPY FLEXIBLE PROXIMAL DIAGNOSTIC performed by Neel Lynn MD at ENDOSCOPY [facility] COLONOSCOPY, DIAGNOSTIC (RECTUM) 09/28/2017 COLONOSCOPY FLEXIBLE PROXIMAL DIAGNOSTIC performed by Leonela Majano MD at ENDOSCOPY [facility] COLONOSCOPY, DIAGNOSTIC (RECTUM) N/A 10/12/2020 COLONOSCOPY FLEXIBLE PROXIMAL DIAGNOSTIC performed by Nelda Tinoco DO at ENDOSCOPY [facility] 04/11/11 No diabetic retinopathy [...] performed by Nelda Tinoco DO at ENDOSCOPY [facility] EGD, W/ENDOSCOPIC US 10-25-11 fatty liver and pancreas infiltration benign lymph node jaxon hepatis region EXC BREAST LESION RADMARK Left 07/04/2017 EXCISION OF BREAST LESION RADIOLOGICAL MARKER performed by Linnea Cardozo MD at OR [facility] MISCELLANEOUS ORDER ([facility] ONLY) 1973 ectopic preg --?left at 4mths PARTIAL HYSTERECTOMY 1979 REMOVAL OF RUPTURED APPENDIX age 15 years REPAIR BLADDER & VAGINA, CYSTOCELE 1980 [facility] FAMILY HISTORY: Family History Problem Relation [...] Topics Alcohol use: No Drug use: No MEDICATIONS: Current Outpatient Medications Medication Instructions Acetaminophen (TYLENOL) 650 mg, Oral, Q8H PRN Allopurinol (ZYLOPRIM) 200 mg, Oral, Daily(AM) atorvaSTATin (LIPITOR) 80 mg, Oral, Q1700 Clotrimazole-Betamethasone 1-0.05 % External Cream Apply topically to affected area twice daily. Cyanocobalamin (B-12) 1000 MCG TABS 1 Tablet, Oral, Daily(AM) Docusate Sodium (COLACE) 100 mg, Oral, BID (.AM/PM) Gabapentin (NEURONTIN) 600 mg, Oral, BID (.AM/PM) glipiZIDE ER 10 MG Oral Tablet Extended Release 24 Hour (Glucotrol XL) TAKE 1 TABLET BY MOUTH ONCE DAILY 30 MINUTES BEFORE A MEAL hydroCHLOROthiazide 12.5 mg, Oral, Daily(AM) Hydrocortisone 1 % External Cream Topical, DAILY PRN, Apply to hemorhoids losartan (COZAAR) 25 mg, Oral, Daily(AM) MetFORMIN (GLUCOPHAGE) 1,000 mg, Oral, BID (.AM/PM), With meals. Metoprolol Tartrate (LOPRESSOR) 25 mg, Oral, BID (.AM/PM) omeprazole (PRILOSEC) 40 mg, Oral, HS ONETOUCH DELICA LANCETS MISC use as directed up to 4 times per day OneTouch Ultra In Vitro Strip (Glucose Blood) Use as directed to check blood sugar once a day. Sennosides 8.6 MG Oral Tablet (Senokot) 2 Tablets, Oral, Daily(AM) Synthroid 125 MCG Oral Tablet TAKE 1 TABLET BY MOUTH ONCE DAILY AT LEAST 30 MINUTES PRIOR TO BREAKFAST OR OTHER MEDICATIONS Vitamin D3 25 MCG (1000 UT) Oral Capsule 1 Capsule, Oral, ONCE zoster vac recomb adjuvanted (SHINGRIX) 50 MCG/0.5ML injection Inject 0.5 mL into a large muscle now and repeat dose in 60 to 180 days ALLERGIES: Diphenhydramine, Epinephrine, Inderal [propranolol hcl], Lisinopril, Mepivacaine hcl, and Zocor [simvastatin] ROS: ROS negative unless stated otherwise in HPI VITALS: BP 132/72 | Pulse 75 | Temp 37 C (98.6 F) (Tympanic) | Ht 1.473 m (4' 10") | BMI 37.87 kg/m |BSA 1.83 m PHYSICAL EXAM: Patient found sitting comfortably in chair in the room upon arrival Alert Awake and Oriented x3 Following commands appropriately Cranial Nerves II-XII Intact 5/5 strength in left upper and lower extremity Slight strength decrease in right upper and right lower extremity which is residual from prior stroke Sensation intact in all 4 extremities No Pronator Drift No dysmetria on [id number] testing Gait not assessed IMAGING: CTH 06/11/2024 IMPRESSION: 1. Unchanged size of the hemorrhage suspended from the right choroid plexus in the atrium of the right lateral ventricle and unchanged volume of intraventricular hemorrhage. No evidence of new hemorrhage. 2. Morphologic findings which would support a diagnosis of normal pressure hydrocephalus although can precede the clinical syndrome. Please correlate clinically. 3. Moderate to severe chronic white matter disease and chronic left rolandic infarct. IMPRESSION: Alka Lawson is an 84-year-old female with T2 DM diabetic polyneuropathy hypothyroidism atrial fibrillation (coumadin - currently holding), and SVT complete heart block, HTN, previous left MCA stroke with residual word-finding difficulties dysarthria, and ambulatory dysfunction that presents to the clinic for routine follow up evaluation from a traumatic IVH sustained status post 2 mechanical falls in the week prior. Upon arrival patient was reversed with Kcentra vitamin K. serial imaging wascompleted lead stabilized. Patient was discharged with Keppra per protocol follow up imaging was ordered. PLAN: All questions and concerns addressed Imaging reviewed Complete [facility] - will follow-up on these results RTC as needed Encouraged to call with any questions or concerns Patient to be discussed with Dr. Ceasar Weiss PA-C Neuroscience [place] [facility] [place] [place] [address] 07/02/2024 3:32 PM documented in this encounter Nursing Notes * Lashae Hilario CMA - 07/02/2024 9:31 AM EDT Patient was instructed to not get up on the exam table/exam chair until directed and assisted by their provider; patient is to remain seated in the chair/ wheelchair/ exam table/ exam chair for fall prevention and safety reasons. Patient is aware to have assistance to step down off exam table/exam chair with personnel. Patient voiced full comprehension of instructions. documented in this encounter Plan of Treatment Upcoming Encounters Date Type Department Care Team (Late st Contact Info) Description 07/04/2024 5:10 PM EDT Anticoagulation Pharmacy, [place] [address] [address] Pharmacist1, [facility] [place] [address] [place] [address] 08/28/2024 6:00 PM EDT Office Visit [address] [phone] Jag Kovacs MD [address] [place] [address] 09/11/2024 2:00 PM EDT Office Visit Podiatry, [facility] [address] [place], [place] [phone] Azul Nye DPM [address] [place], [place] [phone] Scheduled Procedures Name Priority Associated Diagnoses Date/Ti me COLONOSCOPY FLEXIBLE PROXIMAL DIAGNOSTIC Recall Special screening for malignant neoplasms, colon GERD (gastroesophageal reflux disease) ESOPHAGOGASTRODUODENOSCOPY ( EGD), FLEXIBLE, TRANSORAL, DIAGNOSTIC Recall Special screening for malignant neoplasms, colon GERD (gastroesophageal reflux disease) Health Maintenance Due Date Last Done Comments Zoster Vaccines (2 of 3) 04/09/2012 02/13/2012 COVID-19 Vaccine (2022- season) 2023 Colonoscopy 10/12/2023 10/12/2020, 09/20, 09/28/2017, [...] 03/17/2024, , 03/16/2023, Additional history exists GFR 06/27/2025 06/27/2024, 08/0 12/2023, 06/13/2024, Additional history exists DXA Scan 06/05/2026 06/05/2019, [...] as of this encounter Visit Diagnoses Diagnosis Intraventricular hemorrhage (HCC)- Primary Intracerebral hemorrhage documented in this encounter Advance [...] Directives occurred with: Not Discussed Care Teams Manufacturing Storeperson Relationship Specialty Start Date End Date Jag Kovacs MD [address] [address] PCP - General Family Medicine 08/05/21 documented as of this encounter
--- OUTSIDE RECORDS SUMMARY | 2024-08-21 14:10 | External Medical Summary ---
Author Name Unknown Address Unknown Organization K1F:[facility] [address] [place] [address] Laboratory Report Ordering Provider Test Date Status NEY ALEJANDRE 06/27/2024 06:54:00 Final Observation Date Value Abnormality Reference (Units ) Status SYNC LEUKOCYTES IN BLOOD BY AUTOMATED COUNT 06/27/2024 06:54:00 10.03 4.00-10.80 (K/uL) Final Segs 06/27/2024 06:54:00 59.1 40.0-75.0 (%) Final Lymphs % 06/27/2024 06:54:00 29.0 18.0-42.0 (%) Final Monos 06/27/2024 06:54:00 7.6 1.0-11.0 (%) Final Eosinophils 06/27/2024 06:54:00 3.1 0.0-6.0 (%) Final Basos 06/27/2024 06:54:00 0.5 0.0-2.0 (%) Final Immature Granulocyte, Percent 06/27/2024 06:54:00 0.7 0.0-2.0 (%) Final Absolute Segs 06/27/2024 06:54:00 5.93 1.80-7.70 (K/uL) Final Lymphs, absolute 06/27/2024 06:54:00 2.91 1.00-4.80 (K/ul) Final Monos, Abs 06/27/2024 06:54:00 0.76 0.00-1.10 (K/uL) Final Eos, Abs 06/27/2024 06:54:00 0.31 0.00-0.70 (K/uL) Final Basos, Abs 06/27/2024 06:54:00 0.05 0.00-0.20 (K/uL) Final Immature Granulocytes, Number 06/27/2024 06:54:00 0.07 0.00-0.20 (K/uL) Final Performing Location LAB[facility]ATORY [facility] - [address] [place] [id number]
--- OUTSIDE RECORDS SUMMARY | 2024-08-21 14:10 | External Medical Summary ---
Author Name Unknown Address Unknown Organization K1F:LABORATORY [facility] - [address] [place] [address] Laboratory Report Ordering Provider Test Date Status NEY ALEJANDRE 07/04/2024 06:15:00 Final Observation Date Value Abnormality Reference (Units ) Status BUN 07/04/2024 06:15:00 14 6-20 (mg/dL) Final Creatinine 07/04/2024 06:15:00 0.8 0.5-1.0 (mg/dL) Final Glomerular filtration rate/1.73 sq M.predicted [Volume Rate/Area] in Serum, Plasma or Blood by Creatinine-based formula (CKD-EPI) 07/04/2024 06:15:00 69 >=60 (mL/min) Final eGFR is calculated based on the CKD-EPI 2020 equation. Sodium 07/04/2024 06:15:00 141 135-146 (m mol/L) Final Potassium 07/04/2024 06:15:00 3.4 Below low normal 3.5 -5.1 (mmol/L) Final Cl 07/04/2024 06:15:00 100 98-107 (mm ol/L) Final CO2 07/04/2024 06:15:00 25 22-32 (mmo l/L) Final Anion gap 07/04/2024 06:15:00 16 Above high normal 7- 15 (mmol/L) Final Glucose 07/04/2024 06:15:00 93 70-120 (mg /dL) Final Calcium 07/04/2024 06:15:00 8.4 8.4-10.2 ( mg/dL) Final Performing Location LABORATORY [facility] - [address] [place] [address]
--- OUTSIDE RECORDS SUMMARY | 2024-08-21 14:10 | External Medical Summary | Summary of Care ---
Author Name Unknown Organization [facility] Address [address] [place] [address] Phone [phone] Care Team Providers Care Fitness Leader Name Role Phone Jag Kovacs MD Primary Care Provider Reason for Visit * Reason Onset Date Comments Order Request 03/25/2024 Physical Therapy request. Encounter Details Date Type Department Care Team (Late st Contact Info) Description 03/25/2024 Telephone [facility] [address] [facility] [place] [address] Jag Kovacs MD [address] [place] [address] Order Request (Physical Therapy request.) Allergies Active Allergy Reactions Criticality Noted Date Comments Diphenhydramine 09/03/2018 Epinephrine Other (Please comment) 07/03/2023 Propranolol Hcl 09/29/2010 "TIA" - like reactions Lisinopril Cough 08/04/2008 Mepivacaine Hcl 06/30/2008 With epi: whole face sagged Simvastatin 12/25/2012 Myalgia-nl CK documented as of this encounter (statuses as of 06/24/2024) Medications Medication Sig Dispensed Refills Start Date End Date Status PENELOPE MORENO MISCIndications:DM type 2, goal A1c below 7 use as directed up to 4 times per day 100 Each 11 07/09/20 13 Active Cyanocobalamin (B-12) 1000 MCG TABS Take 1 Tab by mouth daily. 30 Tab 5 08/18/20 19 Active zoster vac recomb adjuvanted (SHINGRIX) 50 MCG/0.5ML injectionIndicatio ns:Need for vaccination for zoster Inject 0.5 mL into a large muscle now and repeat dose in 60 to 180 days 1 Each 1 06/25/20 Active Vitamin D3 25 MCG (1000 UT) Oral Capsule Take 1 Capsule by mouth once. Active Atorvastatin Calcium 80 MG Oral Tablet (Lipitor) Take 1 Tablet by mouth every afternoon. 30 Tablet 12/01/19 23 Active Losartan Potassium 25 MG Oral Tablet (Cozaar) Take 1 Tablet by mouth in the morning. 30 Tablet 12/07/19 23 Active Acetaminophen 325 MG Oral Tablet (Tylenol) Take 2 Tablets by mouth every 8 hours as needed for Pain, Moderate. Active Hydrocortisone 1 % External Cream Apply topically to affected area daily as needed for Hemorrhoids. Apply to hemorhoids 12/30/19 Active Metoprolol Tartrate 50 MG Oral Tablet (Lopressor) Take 0.5 Tablets by mouth in the morning and 0.5 Tablets before bedtime. 02/03/20 23 Active Clotrimazole-Betam ethasone 1-0.05 % External Cream Apply topically to affected area twice daily. 45 g 2 04/10/20 23 Active OneTouch Ultra In Vitro Strip (Glucose Blood)Indications: Type 2 diabetes mellitus with hemoglobin A1c goal of less than 8.0% (HCC) Use as directed to check blood sugar once a day. 100 Strip 3 06/15/20 23 Active Allopurinol 100 MG Oral Tablet (Zyloprim)Indicati ons:Gouty arthropathy Take 2 tablets by mouth once daily 180 Tablet 1 11/23/19 24 Active glipiZIDE ER 10 MG Oral Tablet Extended Release 24 Hour (Glucotrol XL)Indications:Typ e 2 diabetes mellitus with hemoglobin A1c goal of less than 7.0% (HCC) TAKE 1 TABLET BY MOUTH ONCE DAILY 30 MINUTES BEFORE A MEAL 90 Tablet 1 11/23/19 24 Active hydroCHLOROthiazid e 12.5 MG Oral Capsule (Hydrodiuril)Indic ations:HTN, goal below 140/80 Take 1 capsule by mouth once daily 90 Capsule 2 12/24/19 24 Active Gabapentin 300 MG Oral Capsule (Neurontin)Indicat ions:Post-herpetic polyneuropathy Take 2 Capsules by mouth in the morning and 2 Capsules before bedtime. 360 Capsule 3 02/07/20 24 Active Omeprazole 40 MG Oral Capsule Delayed Release (PriLOSEC)Indicati ons:History of esophageal stricture,Gastroes ophageal reflux disease, unspecified whether esophagitis present Take 1 Capsule by mouth at bedtime. 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) TAKE 1 TABLET BY MOUTH TWICE DAILY WITH MEALS 180 Tablet 3 09/09/20 23 024 Discontinued Warfarin Sodium 2.5 MG Oral Tablet (Coumadin)Indicati ons:Hemiplegia, post-stroke (HCC),Paroxysmal atrial fibrillation (HCC) TAKE 1 TO 2 TABLETS BY MOUTH IN THE EVENING DIRECTED BY ANTICOAGULATION CLINIC 180 Tablet 1 02/13/20 24 024 Discontinued documented as of this encounter (statuses as of 06/24/2024) Active Problems Problem Noted Date Diagnosed Date [...] as of this encounter (statuses as of 06/24/2024) Resolved Problems Problem Noted Date Diagnosed Date [...] nuclear stress test 05/08/2016 06/12/2017 Overview: 05/04-at [place] card++++ B12 deficiency 08/12/2015 06/12/2017 Overview: b12-231, [...] 5 yrs-Mely. Noel scope 02/28/2010 Dr. Lynn, [place] internal hemorrhoid, [...] as of this encounter (statuses as of 06/24/2024) Immunizations Name Administration Dates Next Due PPD [...] do you have serious difficulty h earing? No 11/29/2022 Are you blind or do you have serious difficulty seeing, even when wearing glasses? No 11/29/2022 Do you have serious difficul ty walking or climbing stairs? (5 years old or older) Yes 12/06/2022 Do you have difficulty dress ing or bathing? (5 years old or older) No 11/29/2022 Because of a physical, menta l, or emotional condition, do you have difficulty doing errands alone such as visiting a doctor s office or shopping? (15 years old or older) No 11/29/19 Cognitive Status Response Date of Assessm ent Because of a physical, menta l, or emotional condition, do you have serious difficulty concentrating, remembering, or making decisions? (5 years old or older) No 11/29/2022 documented as of this encounter Miscellaneous Notes * Telephone Encounter - Marifer Goldberg LPN - 03/26/2024 10:39 AM EDT Patient accepted appointment on 03/26 with Sonia. * Telephone Encounter - Jag Kovacs MD - 03/26/2024 10:09 AM EDT Since PT could be counterproductive if she has any evidence of fracture, etc., she should be seen first. * Telephone Encounter - Shawna Garcia LPN - 03/26/2024 9:41 AM EDT Does pt need appt first, before PT * Telephone Encounter - Leighton Philippe OSA - 03/25/2024 4:21 PM EDT Patient states she fell on Sat night. It is making her neck hurt and right leg is bothering her. She was asking if she can have physical therapy ordered. She does not want to be seen if possible, andis just requesting P.T. for her neck and right leg. documented in this encounter Plan of Treatment Upcoming Encounters Date Type Department Care Team (Late st Contact Info) Description 07/02/2024 9:20 AM EDT Office Visit Neurosurgery, [place] [address] [facility] [address] [facility] Tra[place] Brain [place] [address] [place] [phone] 07/04/2024 5:10 PM EDT Anticoagulation Pharmacy, [place] [address] [address] Pharmacist1, [facility] [address] [address] 08/28/2024 6:00 PM EDT [facility] Visit [facility] [address] [facility] [phone] Jag Kovacs MD [address] [place] [address] 09/11/2024 2:00 PM EDT Office Visit Podiatry, [facility] [address] [place] [address] Azul Nye [facility] [address] [place], [place] [phone] Scheduled Procedures Name Priority Associated Diagnoses Date/Ti [...] 03/17/2024, , 03/16/2023, Additional history exists GFR 06/20/2025 06/20/2024, 05/20, 06/12/2024, Additional history exists DXA Scan 06/05/2026 06/05/2019, [...] Directives occurred with: Not Discussed Care Teams Fitness Leader Relationship Specialty Start Date End Date Jag Kovacs MD [address] [address] PCP - General Family Medicine 08/05/21 documented as of this encounter
--- OUTSIDE RECORDS SUMMARY | 2024-08-21 14:10 | External Medical Summary | Summary of Care ---
Author Name Unknown Organization [facility] Address [address] [place] [address] Phone [phone] Care Team Providers Care Interactive Video Technician Name Role Phone Jag Kovacs MD Primary Care Provider Reason for Visit * Reason Comments Dosage Adjustment Via Phone (anticoag Cl inic) Encounter Details Date Type Department Care Team (Latest Contact Info) Description 07/04/2024 5:10 PM EDT Antico[facility] Pharm[facility], [place] [address] [place] [address] Pharmacist1, [facility] [place] [address] [place] [address] Hemiplegia, post-stroke (HCC)*; Paroxysmal atrial fibrillation (HCC) Allergies Active Allergy Reactions Criticality Noted Date Comments Diphenhydramine 09/03/2018 Epinephrine Other (Please comment) 07/03/2023 Propranolol Hcl 09/29/2010 "TIA" - like reactions Lisinopril Cough 08/04/2008 Mepivacaine Hcl 06/30/2008 With epi: whole face sagged Simvastatin 12/25/2012 Myalgia-nl CK documented as of this encounter (statuses as of 07/04/2024) Medications Medication Sig Dispensed Refills Start Date [...] Additional Information Patient not taking.Reported on 07/02/2024 [employer] Ultra In Vitro Strip (Glucose Blood)Indications:Ty pe [...] as of this encounter (statuses as of 07/04/2024) Active Problems Problem Noted Date Diagnosed Date [...] as of this encounter (statuses as of 07/04/2024) Resolved Problems Problem Noted Date Diagnosed Date [...] nuclear stress test 05/08/2016 06/12/2017 Overview: 05/04-at [place] card++++ B12 deficiency 08/12/2015 06/12/2017 Overview: [id number], [...] 5 yrs-Mely. Noel scope 02/28/2010 Dr. Lynn, [place] internal hemorrhoid, normal colon, repeat 5 years [...] as of this encounter (statuses as of 07/04/2024) Immunizations Name Administration Dates Next Due PPD [...] Notes * Jose Martin Castellon RPh - 07/04/2024 5:04 PM EDT Patient completing repeat CT. Will follow-up with Neurology once results are made available. Jose Martin Castellon PharmD Clinical Pharmacist [facility] 07/04/2024 5:05 PM documented in this encounter Plan of Treatment Upcoming Encounters Date Type Department Care Team (Late st Contact Info) Description 08/28/2024 6:00 PM EDT Office Visit [address] [phone] Jag Kovacs MD [address] [place] [address] 09/11/2024 2:00 PM EDT Office Visit Podiatry, [facility] [address] [place], [place] [phone] Azul Nye DPM [address] [place], [place] [phone] Scheduled Procedures Name Priority Associated Diagnoses Date/Ti [...] as of this encounter Visit Diagnoses Diagnosis Hemiplegia, post-stroke (HCC)- Primary Hemiplegia affecting unspecified side, late effect of [...] 3:18 PM 12/01/2022 6:05 PM This order reflects the patients wishes and were consensually agreed upon. Question Answer Comments Discussion of Advance Directives occurred with: Family * Full Code Date Activated Date Inactivated Comments 07/27/2021 5:50 AM 07/31/2021 4:15 PM This order re flects the patients wishes and were consensually agreed upon. Question Answer Comments Discussion of Advance Directives occurred with: Not Discussed Care Teams Interactive Video Technician Relationship Specialty Start Date End Date Jag Kovacs MD [address] [place] [id number] PCP - General Family Medicine 08/05/21 documented as of this encounter
--- OUTSIDE RECORDS SUMMARY | 2024-08-21 14:10 | External Medical Summary ---
Author Name Unknown Address Unknown Organization K1F:[facility] [address] [place] [address] Laboratory Report Ordering Provider Test Date Status NEY ALEJANDRE 06/20/2024 06:22:00 Final Observation Date Value Abnormality Reference (Units ) Status SYNC LEUKOCYTES IN BLOOD BY AUTOMATED COUNT 06/20/2024 06:22:00 8.60 4.00-10.80 (K/uL) Final Segs 06/20/2024 06:22:00 60.0 40.0-75.0 (%) Final Lymphs % 06/20/2024 06:22:00 26.0 18.0-42.0 (%) Final Monos 06/20/2024 06:22:00 10.7 1.0-11.0 (%) Final Eosinophils 06/20/2024 06:22:00 2.4 0.0-6.0 (%) Final Basos 06/20/2024 06:22:00 0.3 0.0-2.0 (%) Final Immature Granulocyte, Percent 06/20/2024 06:22:00 0.6 0.0-2.0 (%) Final Absolute Segs 06/20/2024 06:22:00 5.15 1.80-7.70 (K/uL) Final Lymphs, absolute 06/20/2024 06:22:00 2.24 1.00-4.80 (K/ul) Final Monos, Abs 06/20/2024 06:22:00 0.92 0.00-1.10 (K/uL) Final Eos, Abs 06/20/2024 06:22:00 0.21 0.00-0.70 (K/uL) Final Basos, Abs 06/20/2024 06:22:00 0.03 0.00-0.20 (K/uL) Final Immature Granulocytes, Number 06/20/2024 06:22:00 0.05 0.00-0.20 (K/uL) Final Performing Location [facility] - [address] [place] [address]
--- OUTSIDE RECORDS SUMMARY | 2024-08-21 14:10 | External Medical Summary ---
Author Name Unknown Address Unknown Organization K1F:[facility] - [facility] [place] [address] Laboratory Report Ordering Provider Test Date Status NEY ALEJANDRE 06/27/2024 06:54:00 Final Observation Date Value Abnormality Reference (Units ) Status WBC, Total 06/27/2024 06:54:00 10.03 4.00-10.80 (K/uL) Final RBC 06/27/2024 06:54:00 4.54 3.85-5.15 (M/uL) Final Hemoglobin 06/27/2024 06:54:00 13.2 12.0-15.3 (g/dL) Final HCT 06/27/2024 06:54:00 40.8 36.0-45.2 (%) Final MCV 06/27/2024 06:54:00 89.9 81.5-97.5 (fL) Final MCH 06/27/2024 06:54:00 29.1 27.0-34.0 (pg) Final MCHC 06/27/2024 06:54:00 32.4 32.0-36.0 (g/dL) Final RDW 06/27/2024 06:54:00 17.1 11.5-15.5 (%) Final Platelets 06/27/2024 06:54:00 277 140-400 (K/uL) Final MPV 06/27/2024 06:54:00 10.9 6.6-11.1 (fL) Final Nucleated erythrocytes/100 leukocytes [Ratio] in Blood by Automated count 06/27/2024 06:54:00 0 <=0 (/100 WBCs) Final Performing Location [facility] - [address] [place] [id number]
--- OUTSIDE RECORDS SUMMARY | 2024-08-21 14:10 | External Medical Summary ---
Author Name Unknown Address Unknown Organization K1F:[facility]ORY [facility] - [address] [place] [address] Laboratory Report Ordering Provider Test Date Status NEY ALEJANDRE 06/20/2024 06:22:00 Final Observation Date Value Abnormality Reference (Units ) Status BUN 06/20/2024 06:22:00 17 6-20 (mg/dL) Final Creatinine 06/20/2024 06:22:00 0.9 0.5-1.0 (mg/dL) Final Glomerular filtration rate/1.73 sq M.predicted [Volume Rate/Area] in Serum, Plasma or Blood by Creatinine-based formula (CKD-EPI) 06/20/2024 06:22:00 67 >=60 (mL/min) Final eGFR is calculated based on the CKD-EPI 2020 equation. Sodium 06/20/2024 06:22:00 137 135-146 (m mol/L) Final Potassium 06/20/2024 06:22:00 3.7 3.5-5.1 (m mol/L) Final Cl 06/20/2024 06:22:00 97 Below low normal 98- 107 (mmol/L) Final CO2 06/20/2024 06:22:00 24 22-32 (mmo l/L) Final Anion gap 06/20/2024 06:22:00 16 Above high normal 7- 15 (mmol/L) Final Glucose 06/20/2024 06:22:00 153 Above high normal 70 -120 (mg/dL) Final Calcium 06/20/2024 06:22:00 9.6 8.4-10.2 ( mg/dL) Final Performing Location [facility] - [address] [place] [id number]
--- OUTSIDE RECORDS SUMMARY | 2024-08-21 14:10 | External Medical Summary ---
Author Name Unknown Address Unknown Organization K1F:[facility] [address] [facility] [place] [address] Laboratory Report Ordering Provider Test Date Status NEY ALEJANDRE 07/04/2024 06:15:00 Final Observation Date Value Abnormality Reference (Units ) Status SYNC LEUKOCYTES IN BLOOD BY AUTOMATED COUNT 07/04/2024 06:15:00 8.59 4.00-10.80 (K/uL) Final Segs 07/04/2024 06:15:00 56.3 40.0-75.0 (%) Final Lymphs % 07/04/2024 06:15:00 30.2 18.0-42.0 (%) Final Monos 07/04/2024 06:15:00 9.3 1.0-11.0 (%) Final Eosinophils 07/04/2024 06:15:00 3.3 0.0-6.0 (%) Final Basos 07/04/2024 06:15:00 0.3 0.0-2.0 (%) Final Immature Granulocyte, Percent 07/04/2024 06:15:00 0.6 0.0-2.0 (%) Final Absolute Segs 07/04/2024 06:15:00 4.84 1.80-7.70 (K/uL) Final Lymphs, absolute 07/04/2024 06:15:00 2.59 1.00-4.80 (K/ul) Final Monos, Abs 07/04/2024 06:15:00 0.80 0.00-1.10 (K/uL) Final Eos, Abs 07/04/2024 06:15:00 0.28 0.00-0.70 (K/uL) Final Basos, Abs 07/04/2024 06:15:00 0.03 0.00-0.20 (K/uL) Final Immature Granulocytes, Number 07/04/2024 06:15:00 0.05 0.00-0.20 (K/uL) Final Performing Location [facility] - [address] [place] [address]
--- OUTSIDE RECORDS SUMMARY | 2024-08-21 14:11 | External Medical Summary | Summary of Care ---
Author Name Unknown Organization [facility] Address [address] [place] [address] Phone [phone] Care Team Providers Care Sample Weaver Name Role Phone Jag Kovacs MD Primary Care Provider Reason for Referral * Evaluate & Treat - Unlimited Visits (Within 30 days (routine)) - Authorized Specialty Diagnoses / Procedures Referred By Bernard t Referred To Contact Neurology Diagnoses Hydrocephalus, unspecified type (HCC) Juan Denton CRNP [address] [place] [address] Referral ID Status Reason Start Date Expiration Date Visits Requested Visits Authorized [id number] Authorized Specialty Services Required 06/13/[phone] Question Answer Referral Priority Within 30 days (routine) Where should this appointment be scheduled? [facility] This patient already has care established with Neurology. Do not place this order. Please use Ask A Doc to expedite care. Acknowledge Is this referral being placed for insurance purposes ONLY No, patient needs appointment [facility] NEUROLOGY REFERRAL QUESTIONS Other Conditions - Hydrocephalus Comments Discharge Order * Precert (Within 10 days (routine)) - Authorized Specialty Diagnoses / Procedures Referred By Contac t Referred To Contact Radiology Diagnoses Fall, initial encounter Intraventricular hemorrhage (HCC) Procedures CT HEAD/BRAIN WO CONTRAST Osorio Jj PA-C [address] [place] [address] Referral ID Status Reason Start Date Expiration Date V isits Requested Visits Authorized [id number] Authorized 06/25/2024 999 999 Reason for Visit * Reason Comments Fall transfer of records * Auth/Cert Specialty Diagnoses / Procedures Referred By Contac t Referred To Contact Diagnoses Traumatic intraparenchymal hemorrhage (HCC) fall Jessica Garcia MD [address] [place] [address] Emergency Medicine [facility] [address] [place] [address] Referral ID Status Reason Start Date Expiration Date Visits Re quested Visits Authorized [id number] Encounter Details Date Type Department Care Team (Latest Contact Info) Description 06/10/2024 8:24 PM EDT - 06/13/2024 11:11 AM EDT Hospital Encounter TICU [facility], Trauma Intensive Care Unit, [facility] 5th Floor [address] [place] [address] Jj Ballard MD [address] [place] [address] Jessica Garcia MD [address] [place] [address] Srinivas Ortez DO [address] [place] [address] EKG Report Discharge Disposition: SNF Allergies Active Allergy Reactions Criticality Noted Date Comments Diphenhydramine 09/03/2018 Epinephrine Other (Please comment) 07/03/2023 Propranolol Hcl 09/29/2010 "TIA" - like reactions Lisinopril Cough 08/04/2008 Mepivacaine Hcl 06/30/2008 With epi: whole face sagged Simvastatin 12/25/2012 Myalgia-nl CK documented as of this encounter (statuses as of 06/13/2024) Medications Medication Sig Dispensed Refills Start Date End Date Status ONETOUCH DELFRANCISCO LANCETS MISCIndications:DM type 2, goal A1c below 7 [...] in 60 to 180 days 1 Each 06/25/20 20 Active Vitamin D3 25 MCG (1000 UT) [...] MEDICATIONS 90 Tablet 1 02/13/20 24 Active Cephalexin 500 MG Oral Capsule (Keflex) Take 1 Capsule by mouth in the morning and 1 Capsule before bedtime. Do all this for 1 day. 2 Capsule 06/13/20 24 024 Active Docusate Sodium 100 MG Oral Capsule (Colace) Take 1 Capsule by mouth in the morning and 1 Capsule before bedtime. 30 Capsule 06/13/20 24 Active Sennosides 8.6 MG Oral Tablet (Senokot) Take 2 Tablets by mouth in the morning. 30 Tablet 06/13/20 24 Active Heparin Sodium (Porcine) PF 5000 UNIT/0.5ML Injection Solution Inject 0.5 mL under the skin in the morning and 0.5 mL at noon and 0.5 mL before bedtime. Do all this for 4 days. 6 mL 06/13/20 24 024 Active Enoxaparin Sodium 40 MG/0.4ML Injection Solution Prefilled Syringe (Lovenox) Inject 40 mg under the skin in the morning and 40 mg before bedtime. Do all this for 9 days. Do not start before June 18, 2024. 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 With meals.. Do not start before June 14, 2024. 180 Tablet 3 06/14/20 24 Active metFORMIN HCl 1000 MG Oral [...] as of this encounter (statuses as of 06/13/2024) Active Problems Problem Noted Date Diagnosed Date [...] as of this encounter (statuses as of 06/13/2024) Resolved Problems Problem Noted Date Diagnosed Date [...] nuclear stress test 05/08/2016 06/12/2017 Overview: 05/04-at [facility] card++++ B12 deficiency 08/12/2015 06/12/2017 Overview: [id number], [...] Demyelinating changes in brain 02/16/2011 06/12/2017 Overview: 01/27--Jonatan-IgG synthesis rate, myelin basic protein, CSF angiotensin [...] prom EH--rpt 5 yrs-Mely. C scope 02/28/2010 Adryan Bonilla internal hemorrhoid, normal [...] as of this encounter (statuses as of 06/13/2024) Immunizations Name Administration Dates Next Due PPD [...] Sign Reading Time Taken Comments Blood Pressure 167/84 06/13/2024 8:00 AM EDT Pulse 79 06/13/2024 9:00 AM EDT Temperature 36.6 C (97.9 F) 06/13/2024 8:00 AM ED T Respiratory Rate 17 06/13/2024 9:00 AM EDT Oxygen Saturation 95% 06/13/2024 9:00 AM EDT Inhaled Oxygen Concentration - - Weight 82.2 kg (181 lb 3.5 oz) 06/13/2024 8:00 A M EDT Height 147.3 cm (4' 10") 06/10/2024 10:05 PM EDT Body Mass Index 37.87 06/10/2024 10:05 PM EDT documented in this encounter Functional [...] No 06/10/2024 documented as of this encounter Discharge Summaries * Juan Denton CRNP - 06/13/2024 11:11 AM EDT [address] [address] Admission Date: 06/10/2024 Discharge Date: 06/13/2024 DISCHARGE DIAGNOSES: Active Hospital Problems Diagnosis *Principal Diagnosis - Intraventricular hemorrhage (HCC) Hydrocephalus (HCC) Fall Resolved Hospital Problems No resolved problems to display. Other Significant Diagnoses: none CONDITION ON DISCHARGE: good Cognition: normal DISPOSITION ON DISCHARGE: SNF FOLLOW-UP: Future Appointments Appt Date/Time Provider Department 07/02/2024 9:20 AM [facility] 6:00 PM Jag Kovacs MD [facility] 09/11/2024 2:00 PM Azul Nye DPM Podiatry, [facility] Outpatient testing already scheduled: None Outpatient testing that needs to be arranged: None Inpatient test results pending: None MEDICATIONS ON DISCHARGE: MEDICATION UPDATES AT DISCHARGE START taking these medications INSTRUCTIONS Cephalexin 500 MG Capsule Commonly known as: Keflex Take 1 Capsule by mouth in the morning and 1 Capsule before bedtime. Do all this for 1 day. Docusate Sodium 100 MG Capsule Commonly known as: Colace Take 1 Capsule by mouth in the morning and 1 Capsule before bedtime. Enoxaparin 40 MG/0.4ML injection Commonly known as: Lovenox Start taking on: June 18, 2024 Inject 40 mg under the skin in the morning and 40 mg before bedtime. Do all this for 9 days. Do notstart before June 18, 2024. hEParin 5000 UNIT/0.5ML injection Inject 0.5 mL under the skin in the morning and 0.5 mL at noon and 0.5 mL before bedtime. Do all this for 4 days. senna Tablet Commonly known as: Senokot Take 2 Tablets by mouth in the morning. CONTINUE taking these medications INSTRUCTIONS Acetaminophen 325 MG Tablet Commonly known as: Tylenol Take 2 Tablets by mouth every 8 hours as needed for Pain, Moderate. Allopurinol 100 MG Tablet Commonly known as: Zyloprim Take 2 tablets by mouth once daily atorvaSTATin 80 MG Tablet Commonly known as: Lipitor Take 1 Tablet by mouth every afternoon. B-12 1000 MCG Tabs Take 1 Tab by mouth daily. Clotrimazole-Betamethasone 1-0.05 % cream Commonly known as: Lotrisone Apply topically to affected area twice daily. Gabapentin 300 MG Capsule Commonly known as: Neurontin Take 2 Capsules by mouth in the morning and 2 Capsules before bedtime. glipiZIDE XL 10 MG Tb24 Commonly known as: Glucotrol XL TAKE 1 TABLET BY MOUTH ONCE DAILY 30 MINUTES BEFORE A MEAL hydroCHLOROthiazide 12.5 MG Capsule Take 1 capsule by mouth once daily Hydrocortisone 1 % cream Apply topically to affected area daily as needed for Hemorrhoids. Apply to hemorhoids losartan 25 MG Tablet Commonly known as: Cozaar Take 1 Tablet by mouth in the morning. MetFORMIN 1000 MG Tablet Commonly known as: Glucophage Start taking on: June 14, 2024 Take 1 Tablet by mouth in the morning and 1 Tablet before bedtime. With meals.. Do not start beforeJune 14, 2024. Metoprolol Tartrate 50 MG Tablet Commonly known as: Lopressor Take 0.5 Tablets by mouth in the morning and 0.5 Tablets before bedtime. omeprazole 40 MG Cpdr Commonly known as: PriLOSEC Take 1 Capsule by mouth at bedtime. One Touch Delica Lancets Misc use as directed up to 4 times per day OneTouch Ultra Strp Generic drug: Glucose Blood Use as directed to check blood sugar once a day. Synthroid 125 MCG Tablet Generic drug: Levothyroxine Sodium TAKE 1 TABLET BY MOUTH ONCE DAILY AT LEAST 30 MINUTES PRIOR TO BREAKFAST OR OTHER MEDICATIONS Vitamin D3 25 MCG (1000 UT) Caps Take 1 Capsule by mouth once. Zoster Vac Recomb Adjuvanted 50 MCG/0.5ML injection Commonly known as: Shingrix Inject 0.5 mL into a large muscle now and repeat dose in 60 to 180 days STOP taking these medications sulfamethoxazole-trimethoprim DS 800-160 MG per tablet Commonly known as: Bactrim DS Warfarin Sodium 2.5 MG Tablet Commonly known as: Coumadin ALLERGIES: Diphenhydramine, Epinephrine, Inderal [propranolol hcl], Lisinopril, Mepivacaine hcl, and Zocor [simvastatin] INSTRUCTIONS: Activity: No strenuous activity for 6 weeks Diet: Orders Placed This Encounter Procedures Adult Complex Diet : Easy to Chew --- Liquid Consistency: Thin Liquid, Level 0 Code Status: Full Code Indwelling devices: none ADMISSION HISTORY & PHYSICAL EXAM (focused): 84 year old female presented as a level 2 trauma alert after a fall. Patient states she has suffered multiple mechanical falls over the past three days, most recently today in her home. Patient states she believes she was on the floor for an hour before she was able to call for help. (+) headstrike(-) LOC. Patient was ultimately transferred to [facility] where she was found to have right occipital hornintraventricular hemorrhage, prompting her transfer to [facility] for further evaluation. On examination in the trauma bay, pt is AOx4 and GCS 15. Does not endorse pain, nausea, or SOB at this time. Of note, patient takes coumadin [employer] for hx CVA and received Kcentra and vitamin K at [facility] prior to transfer. Head: normocephalic / atraumatic Eyes: pupils 3 mm, bilaterally reactive to light, extraocular muscles intact ENT: tympanic membranes bilaterally clear, oropharynx clear Neck: supple, non-tender, trachea midline Respiratory: clear to auscultation bilaterally Cardiovascular: palpable pulses present, regular rhythm Abdomen: soft, nontender, nondistended Back: no tenderness across thoracic / lumbar spine, old bruising right buttock Pelvis: non-tender, stable to anterior-posterior/lateral compression Rectal: deferred Musculoskeletal: no palpable long bone deformities, motor / sensation grossly intact Skin: grossly intact Neurologic: GCS Adult: eyes open 4 = spontaneous, best verbal response 5 = verbally appropriate forage, best motor response 6 = obeys commands appropriate for age, alert and oriented x3 HOSPITAL COURSE (focused): You were admitted to the hospital on 06/10/24. You were found to have the following injuries Right Occipital horn intraventricular hemorrhage Urinary Tract Infection Hydrocephalus Head Trauma You were seen by neurosurgery for your right occipital horn intraventricular hemmorhage (head bleed). Your coumadin was reversed with Vitamin K and Kcentra. You had a repeat CAT scan to ensure that the head bleed remained stable. You will need to follow-up with neurosurgery clinic in 2 weeks. DO NOT take your Coumadin medication until told you can restart by neurosurgery during follow-up. You also should not take any of the following over the counter medications that can lead to increased bleeding. (Aspirin, Motrin aka Ibuprofen, Aleve aka Naproxen, and Fish Oil) Hydrocephalus You were found to have hydrocephalus on CTA. You will need to follow-up with Neurosurgery clinic [facility] outpatient as described and will also be referred to Neurology for outpatient evaluation. Access the video at [email or web address] or scan the QR code with your mobile device Normal Pressure Hydrocephalus (NPH) - Video Normal Pressure Hydrocephalus (NPH) Overview This condition, which usually occurs in adults 55 and older, is an excessive accumulation of cerebrospinal fluid (CSF) in the ventricles of the brain. The ventricles are a system of large, fluid-filled open spaces inside the brain. Too much CSF in the ventricles can distort the brain's shape. It can make the brain susceptible to injury. About CSF Cerebrospinal fluid is a colorless fluid that bathes the central nervous system. It carries nutrients and waste to and from cells. It also absorbs shocks and regulates pressure. How NPH Develops As we age, the brain tissue gradually weakens and shrinks, exerting less of its own pressure. This atrophied brain can allow the ventricles to swell with CSF fluid, which distorts the brain's shape without causing an elevation in normal brain pressure. Symptoms One of the first signs of NPH is difficulty walking - people with the condition typically develop ashuffling, stumbling, hesitant gait. It often then progresses to incontinence and dementia. The symptoms are sometimes confused with those of Alzheimer's or Parkinson's disease. Treatment Normal Pressure Hydrocephalus is treated with a surgically-implanted shunt. The shunt allows the excess fluid to drain and relieves the distortion caused by swollen ventricles. Copyright 2012 [employer] All Rights Reserv Metformin During your hospital workup, you had CAT scans with contrast dye on 06/11/24. Taking metformin (yourhome diabetic drug) in combination with the dye can cause precipitates that may be harmful to your kidneys. For this reason, your metformin was held while you were in the hospital. You may continue taking this medication again as you normally would on 06/14/24 (>48 hours after administration of the contrast dye). VTE Prophylaxis You are being discharged with Heparin for deep vein thrombosis prophylaxis. You can take heparin for the first 7 days after your initial bleed (until 06/17). You can then transition to Lovenox until you are cleared by Neurosurgery to resume Coumadin. 1) Tell dentists, surgeons, and other healthcare providers that you use this drug. 2) You may bleed more easily. Avoid injury. Use soft toothbrush, electric razor. 3) Call trauma surgery or your primary care physician right away if you have unusual bruising or bleeding 4) Start Heparin tonight. Urinary Tract Infection You were placed on Keflex for a urinary tract infection. You will need to complete a course of thismedication. Operations & Procedures: None Complications: none significant SIGNIFICANT RESULTS: Vital Signs (last recorded): Most Recent Systolic BP: 167 mmHg (06/13/24799) Most Recent Diastolic BP: 84 mmHg (06/13/24799) Pulse: 79 (06/13/24899) Resp: 17 (06/13/24899) Most Recent Temperature: 36.61 C (06/13/24799) Weight: 82.2 kg (181 lb 3.5 oz) (06/13/24799) SpO2: 95 % (06/13/24899) Labs: BLOOD COUNT: WBC, Hgb, Platelets (see below for most recent value): Lab Results Component Value Date/Time WBC 7.71 06/13/2024 07:14 AM WBC 7.61 09/30/2020 03:07 PM WBC 8.5 12/25/1996 03:38 PM HGB 13.4 06/13/2024 07:14 AM HGB 12.8 09/30/2020 03:07 PM HGB 15.2 12/25/1996 03:38 PM PLT 245 06/13/2024 07:14 AM PLT 283 09/30/2020 03:07 PM PLT 295 12/25/1996 03:38 PM Imaging (focused): CT SCAN: Head - acute findings, Cervical Spine - no acute injuries, Thorax - no acute injuries, andAbdomen/Pelvis - no acute injuries RADIOGRAPHS: CXR - no acute injuries CONSULTS ORDERED: NEUROSURGERY CONSULT IP ADULT OCCUPATIONAL THERAPY CONSULT IP ADULT PHYSICAL THERAPY CONSULT IP ADULT SPEECH THERAPY CONSULT IP (ACUTE CARE REHAB) REFERRING PHYSICIAN: Ref: USHA MARROQUIN[[id number]] [address] [place], [place] [address]R[place]LE [place] [address] (office) [phone] (fax) PRIMARY CARE PROVIDER: PCP: Jag Kovacs MD [address] / [place] [phone] (office) [phone] (fax) Note: To contact a physician responsible for this patients hospital care, please call [employer] [phone]. documented in this encounter Discharge Instructions * Discharge Instr - AVS* Juan Denton CRNP - 06/13/2024 7:52 AM EDT Images from the original note were not included. Discharge Date: 06/13/24 You may call the department of Trauma Surgery at [phone] during business hours for any questions or test results. For after-hours emergencies call [phone] and have your doctor paged. The information below provides you with the instructions and the list of medications you need to betaking following discharge from the hospital. If you have any questions, please ask before leaving.Please carry this letter with you when you see your doctor in the clinic. If you have questions, you can reach us at the numbers above. Brief summary of your inpatient care: You were admitted to the hospital on 06/10/24. You were found to have the following injuries Right Occipital horn intraventricular hemorrhage Urinary Tract Infection Hydrocephalus Head Trauma You were seen by neurosurgery for your right occipital horn intraventricular hemmorhage (head bleed). Your coumadin was reversed with Vitamin K and Kcentra. You had a repeat CAT scan to ensure that the head bleed remained stable. You will need to follow-up with neurosurgery clinic in 2 weeks. DO NOT take your Coumadin medication until told you can restart by neurosurgery during follow-up. You also should not take any of the following over the counter medications that can lead to increased bleeding. (Aspirin, Motrin aka Ibuprofen, Aleve aka Naproxen, and Fish Oil) Hydrocephalus You were found to have hydrocephalus on CTA. You will need to follow-up with Neurosurgery clinic asan outpatient as described and will also be referred to Neurology for outpatient evaluation. Access the video at [email or web address] or scan the QR code with your mobile device Normal Pressure Hydrocephalus (NPH) - Video Normal Pressure Hydrocephalus (NPH) Overview This condition, which usually occurs in adults 55 and older, is an excessive accumulation of cerebrospinal fluid (CSF) in the ventricles of the brain. The ventricles are a system of large, fluid-filled open spaces inside the brain. Too much CSF in the ventricles can distort the brain's shape. It can make the brain susceptible to injury. About CSF Cerebrospinal fluid is a colorless fluid that bathes the central nervous system. It carries nutrients and waste to and from cells. It also absorbs shocks and regulates pressure. How NPH Develops As we age, the brain tissue gradually weakens and shrinks, exerting less of its own pressure. This atrophied brain can allow the ventricles to swell with CSF fluid, which distorts the brain's shape without causing an elevation in normal brain pressure. Symptoms One of the first signs of NPH is difficulty walking - people with the condition typically develop ashuffling, stumbling, hesitant gait. It often then progresses to incontinence and dementia. The symptoms are sometimes confused with those of Alzheimer's or Parkinson's disease. Treatment Normal Pressure Hydrocephalus is treated with a surgically-implanted shunt. The shunt allows the excess fluid to drain and relieves the distortion caused by swollen ventricles. Copyright 2012 [employer] All Rights Reserv Metformin During your hospital workup, you had CAT scans with contrast dye on 06/11/24. Taking metformin (yourhome diabetic drug) in combination with the dye can cause precipitates that may be harmful to your kidneys. For this reason, your metformin was held while you were in the hospital. You may continue taking this medication again as you normally would on 06/14/24 (>48 hours after administration of the contrast dye). VTE Prophylaxis You are being discharged with Heparin for deep vein thrombosis prophylaxis. You can take heparin for the first 7 days after your initial bleed (until 06/17). You can then transition to Lovenox until you are cleared by Neurosurgery to resume Coumadin. 1) Tell dentists, surgeons, and other healthcare providers that you use this drug. 2) You may bleed more easily. Avoid injury. Use soft toothbrush, electric razor. 3) Call trauma surgery or your primary care physician right away if you have unusual bruising or bleeding 4) Start Heparin tonight. Urinary Tract Infection You were placed on Keflex for a urinary tract infection. You will need to complete a course of thismedication. Your doctors during this hospitalization included: Trauma- Dr. Ortez, Neurosurgery- Dr. Mcdonough Your primary diagnosis at discharge was Traumatic Brain Injury Inpatient test results pending: None Operations & Procedures: None Complications: none significant Advance Directive Documented: Advance Directive Does the Patient have an Advance Directive? Not Addressed Diet: Orders Placed This Encounter Procedures Adult Complex Diet : Easy to Chew --- Liquid Consistency: Thin Liquid, Level 0 Activity: No strenuous activity for 6 weeks Driving: Do not drive. Date you may return to work or school: N/A See your primary care physician (Jag Kovacs MD) in 1 week(s). documented in this encounter Progress Notes * Srinivas Ortez, - 06/13/2024 5:47 AM EDT CCM - PROGRESS NOTE [facility] [address] Name: Alka Lawson Location: [facility] G504/[id number] Date: 06/11/2024 Time: 5:54 AM PATIENT DESCRIPTION: Alka Lawson is an 84 year old female on coumadin for CVA who was transferred from [facility] as a level 2alert after presenting with a chief complaint of dizziness following diagnostic imaging remarkable for a right occipital horn intraventricular hemorrhage s/p reversal w/ Kcentra + Vit K (INR admission 1.8 >> 1.0), lactate 4.5 >> 2.4 s/p bolus. ADMISSION HPI: Alka Lawson is an 84 year old female presented as a level 2 trauma alert after a fall. Patient states she has suffered multiple mechanical falls over the past three days, most recently today in her home. Patient states she believes she was on the floor for an hour before she was able to call for help. (+) headstrike (-) LOC. Patient was ultimately transferred to [facility] where she was found to have right occipital horn intraventricular hemorrhage, prompting her transfer to [facility] for further evaluation. EVENT SUMMARY: 06/10 - transferred from [facility] for IVH s/p Kcentra + Vitamin K; neurosurgery consulted, repeat CTH x 2showed increased SAH 06/11 - repeat CTH @ 0615 stable, diet advanced per speech INTERVAL 24-HOUR EVENTS: No acute events overnight Patient evaluated at bedside this morning. No new complaints. Ready for transfer to SNF at 10 am. CONSTITUTIONAL DATA: BP: 167 mmHg/84 mmHg (06/13/24799) Pulse: 79 (06/13/24899) Resp: 17 (06/13/24899) Temp: 36.61 C (06/13/24799) Temp Summary: Temp Min: 36.3 C (97.3 F) Max: 36.8 C (98.2 F) SpO2: 95 % (06/13/24899) O2 flow rate: Supplemental O2 Delivery: Room Air, None (06/13/24899) PHYSICAL EXAM: Constitutional: no acute distress HEENT: normocephalic, atraumatic; no masses, tenderness, or adenopathy Neck: supple, normal range of motion CV: normal heart sounds, intact distal pulses Chest: normal respiratory effort, on RA Abdomen: normal: soft, bowel sounds normal, no masses, tenderness or organomegaly Musculoskeletal: Moving extremities spontaneously without any issues Skin: warm, dry, intact: Neuro: alert, oriented to person, place, and time LABORATORY VALUES: reviewed CBC Lab results within last 7 days (see chart for full results) Units 06/13/24 0714 06/12/24 0558 06/11/24 0453 WBC K/uL 7.71 9.24 10.38 HGB g/dL 13.4 12.0 11.6* HCT % 41.4 37.0 36.3 PLT K/uL 245 226 226 BMP Lab results within last 7 days (see chart for full results) Units 06/13/24 0714 06/12/24 0558 06/11/24 0453 Sodium mmol/L 138 139 136 Potassium mmol/L 4.0 3.1* 3.7 Chloride mmol/L 103 102 103 CO2 mmol/L 21* BUN mg/dL 9 9 10 Creatinine mg/dL 0.9 0.8 0.8 Glucose mg/dL 180* 128* 119 Ca, Mg, Phos Lab results within last 7 days (see chart for full results) Units 06/13/24 0714 06/12/24 0558 06/11/24 0453 Calcium mg/dL 9.5 9.3 8.5 Magnesium mg/dL 1.7 1.8 1.4* Phosphorus mg/dL 2.7 2.4* 2.4* Hepatic Function Panel Lab results within last 7 days (see chart for full results) Units 06/10/24 2108 06/10/24 1718 Bilirubin, Total mg/dL -- 0.5 Alkaline Phosphatase U/L -- 60 AST U/L 20 15 ALT U/L -- 16 Protein g/dL -- 6.9 Lipase No results in the last 7 days - inpatent use only Troponins No lab exists selected component "HSTNT" Coags Lab results within last 7 days (see chart for full results) Units 06/11/24 0453 06/10/24 2109 06/10/24 1718 INR 1.2 1.0 1.6* Lactic acid Lab results within last 7 days (see chart for full results) Units 06/11/24 0453 06/10/24 2353 06/10/24 2108 Lactate mmol/L 1.2 2.9* 2.4* Arterial Blood Gas No results in the last 7 days - inpatent use only RADIOGRAPHIC STUDIES: reviewed Initial CTH @ 1652: CT head shows small amount of hemorrhage settling in the dependent portion of the right occipital horn, and increased density of the left occipital choroid plexus indeterminate for choroid plexus hemorrhage versus progression of choroid calcifications since prior exam. Repeat CTH @ 2337: Subarachnoid hemorrhage level identified in the posterior horn of the right and left lateral ventricles is increased when compared to the previous study. Dilated ventricles are present but unchanged when compared to the prior studies. Repeat CTH @ 0615: Unchanged size of the hemorrhage suspended from the right choroid plexus in the atrium of the right lateral ventricle and unchanged volume of intraventricular hemorrhage. No evidence of new hemorrhage. Principal Problem: Intraventricular hemorrhage (HCC) Active Problems: Fall Hydrocephalus (HCC) Resolved Problems: * No resolved hospital problems. * ASSESSMENT: Alka Lawson is a 84 year old year old female on coumadin for a h/o CVA who was transferred from [facility] after sustaining multiple ground level mechanical falls for a right occipita horn intraventricular hemorrhage s/p Kcentra and Vitamin K reversal for a higher level of care here on hospital day 3. SYSTEM BASED PLAN: NEURO: R Occipital horn intraventricular hemorrhage NPH Baseline dementia History of CVA on warfarin Neurosurgery consulted: recommendations implemented Signed off currently. Q4h neurochecks is okay Needs outpatient Neurology and Neurosurgery evaluations Okay for DVT ppx Analgesia/Pain control: ATC tylenol, oxy 5/10 Continue VERSE WRITER Gabapentin RESP: No acute concerns - IS, Flutter therapy CARDIAC / VASCULAR: H/o questionable heart block, A-fib, HLD per records -EF 55-60% on echo from this admission with mild pulmonary hypertension - continued VERSE WRITER meds: HCTZ 12.5 mg daily, Atorvastatin, Losartan - Holding VERSE WRITER Warfarin - ok to resume VERSE WRITER metoprolol GI / HEPATOBILIARY: No acute concerns - adult complex diet (easy to chew) per speech - Continue VERSE WRITER prilosec - Bowel regimen: senna, colace - Zofran prn for nausea RENAL / METABOLIC / FLUIDS: CKD 2 Acute lactic acidosis, resolved Electrolyte derangements - daily BMP; Replete electrolytes PRN INFECTIOUS DISEASES: Acute cystitis, E coli - on Keflex to complete 5 day course ending 06/14 ENDOCRINE: T2DM Hypothyroidism - Euglycemic - SSI medium and Accu-cheks - holding VERSE WRITER glipizide and metformin - continue VERSE WRITER levothyroxine 125 mcg daily HEMATOLOGIC: On chronic anticoagulation with warfarin - therapeutic AC reversed at [facility] with Kcentra and Vitamin K - hold VERSE WRITER coumadin 5mg daily until follow up with neurosurgery - Daily CBC - DVT Ppx: SQH and SCDs MUSCULOSKELETAL / DERM: Gout - continue VERSE WRITER meds: allopurinol 200 BID P.T./O.T. / MOBILITY / WOUND CARE: - PT/OT consulted DVT PROPHYLAXIS: - TEDs/SCDs GLOBAL ISSUES: Delirium/Confusion Assessment Method for ICU (CAM-ICU): CAM-ICU negative DVT Prophylaxis: pneumatic compression devices alone due to chemoprophylaxis contraindication Stress Ulcer Prophylaxis: PPI therapy for other indication Glycemic Control: controlled - protocol Central Line Necessity Reviewed: N/A Aldana: N/A Disposition: transfer to floor, stable for DC back to SNF Case discussed with attending Dr. Ortez. Rylie Chua MD Critical Care Medicine Fellow - PGY5 Briefly, the patient is 84 yo female who fell and sustained IVH, SAH Overnight, doing well, ready for rehab Neuro: neuro checks, keppra per protocol, outpatient neurosurgery follow up CV: no acute issues Pulm: no acute issues GI/FEN: diet as tolerated Renal: no acute issues Heme: no acute issues MSK: no acute issues Endo: no acute issues ID: abx for uti poa PPX: h Dispo: discharge today to rehab facility I have personally provided 35 minutes of critical care time exclusive of time spent on separately billable procedures. Time includes review of laboratory data, radiology results and monitoring for potential decompensation. Interventions were performed as documented above. Upon my evaluation, this patient had a high probability of imminent or life- threatening deterioration due to intracranial hemorrhage, which required my direct attention, intervention, and personal management. Srinivas Ortez DO Trauma Surgery and Surgical Critical Care * Goran Galloway, [facility] - 06/13/2024 12:08 AM EDT PHARMACY HOME MEDICATION VERIFICATION [address] [id number] Name: Alka Lawson Location: [facility] G504/A Date: 06/13/2024 Time: 12:06 AM Hospital Problem List: Patient Active Problem List Diagnosis Acquired hypothyroidism Dyslipidemia, goal LDL below 100 Type 2 diabetes mellitus with hemoglobin A1c goal of less than 8.0% (HCC) HTN, goal below 140/90 Gastroesophageal reflux disease with esophagitis Diabetic polyneuropathy associated with type 2 diabetes mellitus (HCC) Paroxysmal atrial fibrillation (HCC) NSVT (nonsustained ventricular tachycardia) ([facility]) Gouty arthropathy Ambulatory dysfunction Extension of stroke (HCC) Hemiplegia, post-stroke (HCC) Complete heart block (HCC) Fall Intraventricular hemorrhage (HCC) Medications: Note that completed medications (per the MAR) continue to display for 24 hours. Ordered meds to be given in the future also display. Current Facility-Administered Medications Medication Dose Route Frequency Provider Cephalexin (Keflex) cap 500 mg 500 mg Oral BID(AM/PM) Evan Rose DO Levothyroxine Sodium (Synthroid) 125 mcg tablet - PATIENT'S OWN MEDICATION 125 mcg Oral Daily 06 Laurita Valadez CRNP losartan (Cozaar) tab 25 mg 25 mg Oral Daily(AM) Evan Rose DO Acetaminophen (Tylenol) tab 975 mg 975 mg Oral Q6H PRN Narinder Mobley MD Allopurinol (Zyloprim) tab 200 mg 200 mg Oral Daily(AM) Mariza Brothers MD atorvaSTATin (Lipitor) tab 80 mg 80 mg Oral Q 1700 Gabriella Jr., Jeffery Pete MD Gabapentin (Neurontin) cap 600 mg 600 mg Oral BID(AM/PM) Mariza Brothers MD hEParin inj 5,000 Units 5,000 Units Subcutaneous Q8H Mariza Brothers MD hydroCHLOROthiazide cap 12.5 mg 12.5 mg Oral Daily(AM) Mariza Brothers MD insulin aspart (NovoLOG) inj Subcutaneous With Meals and HS Laurita Valadez CRNP dextrose 50% inj 25 mL 25 mL IV Push PRN Abdulaziz Alejandre MD dextrose 50% inj 50 mL 50 mL IV Push PRN Abdulaziz Alejandre MD Docusate Sodium (Colace) cap 100 mg 100 mg Oral BID(AM/PM) Abdulaziz Alejandre MD glucagon (Glucagen) inj 1 mg 1 mg Intramuscular PRN Abdulaziz Alejandre MD Glucose (Glutose 15) 40 % gel 15 g of glucose 15 g of glucose Oral PRN Abdulaziz Alejandre MD Glucose (Glutose 15) 40 % gel 30 g of glucose 30 g of glucose Oral PRN Abdulaziz Alejandre MD glucose chew tab 16 g 16 g Oral PRN Abdulaziz Alejandre MD omeprazole (PriLOSEC) cap 40 mg 40 mg Oral Daily(AM) Abdulaziz Alejandre MD ondansetron ODT (Zofran) tab 4 mg 4 mg On Tongue Q6H PRN Abdulaziz Alejandre MD Or ondansetron (Zofran) inj 4 mg 4 mg IV Push Q6H PRN Abdulaziz Alejandre MD oxyCODONE (Oxy IR) tab 10 mg 10 mg Oral Q4H PRN Abdulaziz Alejandre MD oxyCODONE (Oxy IR) tab 5 mg 5 mg Oral Q4H PRN Abdulaziz Alejandre MD senna (Senokot) 2 Tablet 2 Tablet Oral Daily(AM) Abdulaziz Alejandre MD Allergies: Diphenhydramine, Epinephrine, Inderal [propranolol hcl], Lisinopril, Mepivacaine hcl, and Zocor [simvastatin] Medication to be verified: Synthroid 125 mcg tablet (brand name) Quantity Received: 82 tablets Pharmacist verification: This medication has been physically verified by Yair DavisD. as Synthroid 125 mcg tablet (brand name) and the nurses may administer this medication to the patientas indicated by the orders written by the provider. Nursing Fruit Or Nut Picker: Cherie Myers Pharmacist Recommendations/Notes: No changes necessary. * Walt Mcdonough MD - 06/12/2024 11:35 AM EDT PROGRESS [place] [address] Name: Alka Lawson Date: 06/12/2024 Time: 11:35 AM Patient looking well today. Baseline dementia. Serial CTs are now stable. Overall she was feeling well, no headaches, no focal neurologic deficits as best I can tell given the baseline dementia. Findings do suggest NPH. Upon discharge we will see her in the TBI Clinic to document resolution of the hemorrhage. Also to rule out any progression of symptoms are posttraumatic hydrocephalus. She shouldalso undergo evaluation for NPH by the Neurology service on an outpatient basis. PAST MEDICAL HISTORY: Past Medical History: Diagnosis [...] eval> >01/31-dc fe ILD (interstitial lung disease) ([facility]) 02/14/2023 Internal hemorrhoids 01/26/2014 Intraventricular hemorrhage ([facility]) 06/11/2024 Mixed incontinence urge and stress (male)(female) 11/16/2010 Nocturnal hypoxia 05/14/201506/02--night ox 01/31 my read-desaturation to 87%.-?pattern osas. >refer-sleep cl eval-formerly [facility] sleep study>08/12/15--no osas, -fu 09/02---rec O2 defers Obesity, Class III, BMI 40-49.9 (morbid obesity) ([facility]) 05/03/2010 Per Obesity Protocol, #19 ICD-10 update of inactive term Pneumonia due to COVID-19 virus 07/27/2021 Severe obesity with body mass index (BMI) of 35.0 to 35.9 and comorbidity ([facility]) 05/11/2011 Stroke ([facility]) Trochanteric bursitis of right hip 11/27/2012 Urgency incontinence 10/02/2014 Varicose vein of leg 05/28/2012 Mild lt leg PAST SURGICAL HISTORY: Past Surgical History: Procedure Laterality Date BX BREAST PERCUT W/O IMAGE Left 05/02/2017 05/02/2017 left breast , ultrasound guided core bx dx intraductal papillomas - [facility] COLONOSCOPY, DIAGNOSTIC (RECTUM) 03/12/2015 COLONOSCOPY FLEXIBLE PROXIMAL DIAGNOSTIC performed by Neel Lynn MD at ENDOSCOPY [facility] COLONOSCOPY, DIAGNOSTIC (RECTUM) 09/28/2017 COLONOSCOPY FLEXIBLE PROXIMAL DIAGNOSTIC performed by Leonela Majano MD at ENDOSCOPY [facility] COLONOSCOPY, DIAGNOSTIC (RECTUM) N/A 10/12/2020 COLONOSCOPY FLEXIBLE PROXIMAL DIAGNOSTIC performed by Nelda Tinoco DO at ENDOSCOPY [facility] DIABETIC EYE EXAM 04/11/11 No diabetic retinopathy - Dr. Joseph. EGD, FLEXIBLE, DIAGNOSTIC 09/20/2011 UPPER GI ENDOSCOPY DIAGNOSTIC performed by YANET VALLES at ENDOSCOPY [facility] EGD, FLEXIBLE, DIAGNOSTIC 03/12/2015 ESOPHAGOGASTRODUODENOSCOPY (EGD), FLEXIBLE, TRANSORAL, DIAGNOSTIC performed by Neel Lynn MD at ENDOSCOPY [facility] EGD, FLEXIBLE, DIAGNOSTIC 09/28/2017 ESOPHAGOGASTRODUODENOSCOPY (EGD), FLEXIBLE, TRANSORAL, DIAGNOSTIC performed by Leonela Majano MD at ENDOSCOPY [facility] EGD, FLEXIBLE, DIAGNOSTIC N/A 10/12/2020 ESOPHAGOGASTRODUODENOSCOPY (EGD), FLEXIBLE, TRANSORAL, DIAGNOSTIC performed by Nelda Tinoco DO at ENDOSCOPY [facility] EGD, W/ENDOSCOPIC US 10-25-11 fatty liver and pancreas infiltration benign lymph node jaxon hepatis region EXC BREAST LESION RADMARK Left 07/04/2017 EXCISION OF BREAST LESION RADIOLOGICAL MARKER performed by Linnea Cardozo MD at OR [facility] MISCELLANEOUS ORDER ([facility] ONLY) 1972 ectopic preg --?left at 4mths PARTIAL HYSTERECTOMY 1980 REMOVAL OF RUPTURED APPENDIX age 15 years [...] Topics Alcohol use: No Drug use: No Current Facility-Administered Medications: Cephalexin (Keflex) cap 500 mg, 500 mg, Oral, BID(AM/PM), Milton, Evan Plammoottil, DO, 500 mg at 06/12/24 1128 losartan (Cozaar) tab 25 mg, 25 mg, Oral, Daily(AM), Evan Rose Plammoottil, DO, 25 mg at 06/12/24 1128 potassium phosphate 15 mmol in NSS 250 mL (K phos) ivpb, 15 mmol, Peripheral IV, Once, Evan Rose Plammoottil, DO, Last Rate: 104 mL/hr at 06/12/24 1100, 6 mmol/hr at 06/12/24 1100 Acetaminophen (Tylenol) tab 975 mg, 975 mg, Oral, Q6H PRN, Narinder Mobley MD Allopurinol (Zyloprim) tab 200 mg, 200 mg, Oral, Daily(AM), Mariza Brothers MD, 200 mg at 06/12/24 0812 atorvaSTATin (Lipitor) tab 80 mg, 80 mg, Oral, Q 1700, [facility], Jeffery Pete MD Gabapentin (Neurontin) cap 600 mg, 600 mg, Oral, BID(AM/PM), Mariza Brothers MD, 600 mg at 06/12/24 0811 hEParin inj 5,000 Units, 5,000 Units, Subcutaneous, Q8H, Mariza Brothers MD, 5,000 Units at 06/12/24 0600 hydroCHLOROthiazide cap 12.5 mg, 12.5 mg, Oral, Daily(AM), Mariza Brothers MD, 12.5 mg at 06/12/24 0812 insulin aspart (NovoLOG) inj, , Subcutaneous, With Meals and HS, Laurita Valadez CRNP, 2 Units at 06/12/24 0906 dextrose 50% inj 25 mL, 25 mL, IV Push, PRN, Abdulaziz Alejandre MD dextrose 50% inj 50 mL, 50 mL, IV Push, PRN, Abdulaziz Alejandre MD Docusate Sodium (Colace) cap 100 mg, 100 mg, Oral, BID(AM/PM), Abdulaziz Alejandre MD, 100 mg at 06/12/24 0811 glucagon (Glucagen) inj 1 mg, 1 mg, Intramuscular, PRN, Abdulaziz Alejandre MD Glucose (Glutose 15) 40 % gel 15 g of glucose, 15 g of glucose, Oral, PRN, Abdulaziz Alejandre MD Glucose (Glutose 15) 40 % gel 30 g of glucose, 30 g of glucose, Oral, PRN, Abdulaziz Alejandre MD glucose chew tab 16 g, 16 g, Oral, PRN, Abdulaziz Alejandre MD Levothyroxine Sodium (Levoxyl) tab 125 mcg, 125 mcg, Oral, Daily 0630, Abdulaziz Alejandre MD, 125 mcg at 06/12/24 0604 omeprazole (PriLOSEC) cap 40 mg, 40 mg, Oral, Daily(AM), Abdulaziz Alejandre MD, 40 mg at 06/12/24 0811 ondansetron ODT (Zofran) tab 4 mg, 4 mg, On Tongue, Q6H PRN OR ondansetron (Zofran) inj 4 mg, 4mg, IV Push, Q6H PRN, Abdulaziz Alejandre MD oxyCODONE (Oxy IR) tab 10 mg, 10 mg, Oral, Q4H PRN, Abdulaziz Alejandre MD oxyCODONE (Oxy IR) tab 5 mg, 5 mg, Oral, Q4H PRN, Abdulaziz Alejandre MD senna (Senokot) 2 Tablet, 2 Tablet, Oral, Daily(AM), Abdulaziz Alejandre MD, 2 Tablet at 06/12/24 0811 ALLERGIES: Diphenhydramine, Epinephrine, Inderal [propranolol hcl], Lisinopril, Mepivacaine hcl, and Zocor [simvastatin] VITALS: BP 140/61 | Pulse 61 | Temp 36.4 C (97.5 F) (Tympanic) | Resp 20 | Ht 1.473 m (4' 10") | Wt 80.4 kg (177 lb 4 oz) | SpO2 96% | BMI 37.05 kg/m | BSA 1.81 m Walt Lucas This document was dictated using voice recognition software. Please excuse any errors. * Srinivas Ortez DO - 06/12/2024 7:46 AM EDT CCM - PROGRESS NOTE [facility]-[address] [address] Name: Alka Lawson Location: [facility] G504/A Date: 06/11/2024 Time: 5:54 AM PATIENT DESCRIPTION: Alka Lawson is an 84 year old female on coumadin for CVA who was transferred from [facility] as a level 2alert after presenting with a chief complaint of dizziness following diagnostic imaging remarkable for a right occipital horn intraventricular hemorrhage s/p reversal w/ Kcentra + Vit K (INR admission 1.8 >> 1.0), lactate 4.5 >> 2.4 s/p bolus. ADMISSION HPI: Alka Lawson is an 84 year old female presented as a level 2 trauma alert after a fall. Patient states she has suffered multiple mechanical falls over the past three days, most recently today in her home. Patient states she believes she was on the floor for an hour before she was able to call for help. (+) headstrike (- ) LOC. Patient was ultimately transferred to [facility] where she was found to have ri ght occipital horn intraventricular hemorrhage, prompting her transfer to [facility] for further evaluation. EVENT SUMMARY: 06/10 - transferred from [facility] for IVH s/p Kcentra + Vitamin K; neurosurgery consulted, repeat CTH x 2showed increased SAH 06/11 - repeat CTH @ 0615 stable, diet advanced per speech INTERVAL 24-HOUR EVENTS: Doing well this morning. No pain. Alert and oriented x3. No pain reported. CONSTITUTIONAL DATA: BP: 150 mmHg/81 mmHg (06/12/24 0700) Pulse: 76 (06/12/24 0700) Resp: 17 (06/12/24 07) Temp: 36.89 C (06/12/24 0400) Temp Summary: Temp Min: 36 C (96.8 F) Max: 36.9 C (98.4 F) SpO2: 95 % (06/12/24 07) O2 flow rate: Supplemental O2 Delivery: Room Air, None (06/12/24 0000) PHYSICAL EXAM: Constitutional: no acute distress HEENT: normal: normocephalic, atraumatic; no masses, tenderness, or adenopathy Neck: supple, normal range of motion CV: normal heart sounds, intact distal pulses Chest: normal respiratory effort Abdomen: normal: soft, bowel sounds normal, no masses, tenderness or organomegaly Musculoskeletal: FROM of upper and loweer bilateral extremities Skin: warm, dry, intact: Neuro: alert, oriented to person, place, and time LABORATORY VALUES: reviewed CBC Lab results within last 7 days (see chart for full results) Units 06/12/24 0558 06/11/24 04506/10/24 2108 WBC K/uL 9.24 10.38 10.33 HGB g/dL 12.0 11.6* 13.0 HCT % 37.0 36.3 40.0 PLT K/uL 226 226 249 BMP Lab results within last 7 days (see chart for full results) Units 06/12/24 0558 06/11/2445206/10/24 2108 Sodium mmol/L 139 136 140 Potassium mmol/L 3.1* 3.7 3.0* Chloride mmol/L 102 103 100 CO2 mmol/L 26 21* 25 BUN mg/dL 9 10 14 Creatinine mg/dL 0.8 0.8 0.9 Glucose mg/dL 128* 119 86 Ca, Mg, Phos Lab results within last 7 days (see chart for full results) Units 06/12/24 0558 06/11/2445206/10/24 210 Calcium mg/dL 9.3 8.5 9.6 Magnesium mg/dL 1.8 1.4* -- Phosphorus mg/dL 2.4* 2.4* -- Hepatic Function Panel Lab results within last 7 days (see chart for full results) Units 06/10/24210706/10/24 1718 Bilirubin, Total mg/dL -- 0.5 Alkaline Phosphatase U/L -- 60 AST U/L 20 15 ALT U/L -- 16 Protein g/dL -- 6.9 Lipase No results in the last 7 days - inpatent use only Troponins No lab exists selected component "HSTNT" Coags Lab results within last 7 days (see chart for full results) Units 06/11/24 04506/10/24 21006/10/24 1718 INR 1.2 1.0 1.6* Lactic acid Lab results within last 7 days (see chart for full results) Units 06/11/24 0453 06/10/24 2353 06/10/24 2108 Lactate mmol/L 1.2 2.9* 2.4* Arterial Blood Gas No results in the last 7 days - inpatent use only RADIOGRAPHIC STUDIES: reviewed Initial CTH @ 1652: CT head shows small amount of hemorrhage settling in the dependent portion of the right occipital horn, and increased density of the left occipital choroid plexus indeterminate for choroid plexus hemorrhage versus progression of choroid calcifications since prior exam. Repeat CTH @ 2337: Subarachnoid hemorrhage level identified in the posterior horn of the right and left lateral ventricles is increased when compared to the previous study. Dilated ventricles are present but unchanged when compared to the prior studies. Repeat CTH @ 0615: Unchanged size of the hemorrhage suspended from the right choroid plexus in the atrium of the right lateral ventricle and unchanged volume of intraventricular hemorrhage. No evidence of new hemorrhage. Principal Problem: Intraventricular hemorrhage (HCC) Active Problems: Fall Resolved Problems: * No resolved hospital problems. * ASSESSMENT: Alka Lawson is a 84 year old year old female on coumadin for a h/o CVA who was transferred from [facility] after sustaining multiple ground level mechanical falls for a right occipita horn intraventricular hemorrhage s/p Kcentra and Vitamin K reversal for a higher level of care here on hospital day 2. SYSTEM BASED PLAN: NEURO: R occipital horn IVH, Analgesia/Pain Regimen R Occipital horn intraventricular hemorrhage Neurosurgery consulted: recommendations implemented Signed off currently. Q4h neurochecks is okay Keppra [facility] okay for mechanical DVT Ppx only Analgesia/Pain control: ATC tylenol, oxy 5/10 Continue VERSE WRITER Gabapentin RESP: no acute pathophysiology - IS, Flutter therapy, RPDP CARDIAC / VASCULAR: h/o questionable heart block, A-fib, HLD per records - continued VERSE WRITER meds: HCTZ 12.5 mg daily, Atorvastatin, Losartan - Holding VERSE WRITER Warfarin, Metoprolol (d/t HRs in the 50s) - TTE and troponins ordered GI / HEPATOBILIARY: no acute pathophysiology - adult complex diet (easy to chew) per speech - Continue VERSE WRITER prilosec - Bowel regimen: senna, colace - Zofran prn for nausea RENAL / METABOLIC / FLUIDS: h/o CKD, hypokalemia, hypomagnesia, hypophosphatemia, Acute lactic acidosis - resolved - daily BMP; Replete electrolytes PRN INFECTIOUS DISEASES: UTI with positive U/A - ceftriaxone 1g daily x 5 days (end date 06/15/2024) - will switch to keflex today (total of 5 days of therapy) - urine cultures growing lactose fermenting GNBs ENDOCRINE: h/o T2DM, Hypothyroidism T2DM - Euglycemic - SSI medium and Accu-cheks - holding VERSE WRITER glipizide and metformin Hypothyroidism - continue VERSE WRITER levothyroxine 125 mcg daily HEMATOLOGIC: h/o CVA - therapeutic AC reversed at [facility] with Kcentra and Vitamin K - hold VERSE WRITER coumadin 5mg daily until follow up with neurosurgery - Daily CBC - DVT Ppx: SQH and SCDs MUSCULOSKELETAL / DERM: Gout - continue VERSE WRITER meds: allopurinol 200 BID P.T./O.T. / MOBILITY / WOUND CARE: - PT/OT consulted DVT PROPHYLAXIS: - TEDs/SCDs Peripheral Line Left Hand 22 Gauge (Active) Number of days: 2 Peripheral Line Left;Lower Arm 22 Gauge (Active) Number of days: 2 GLOBAL ISSUES: Delirium/Confusion Assessment Method for ICU (CAM-ICU): CAM-ICU negative DVT Prophylaxis: pneumatic compression devices alone due to chemoprophylaxis contraindication Stress Ulcer Prophylaxis: PPI therapy for other indication Glycemic Control: controlled - protocol Central Line Necessity Reviewed: N/A Aldana: N/A Disposition: transfer to floor, potential discharge tomorrow Briefly, the patient is 84 yo female who fell and sustained IVH, SAH Overnight, mental status improved, awake and alert Neuro: neuro checks, keppra per protocol, outpatient neurosurgery follow up CV: no acute issues Pulm: no acute issues GI/FEN: diet as tolerated Renal: no acute issues Heme: no acute issues MSK: no acute issues Endo: no acute issues ID: abx for uti poa PPX: sqh Dispo: transfer to med surg I have personally provided 35 minutes of critical care time exclusive of time spent on separately billable procedures. Time includes review of laboratory data, radiology results and monitoring for potential decompensation. Interventions were performed as documented above. Upon my evaluation, this patient had a high probability of imminent or life- threatening deterioration due to intracranial hemorrhage, which required my direct attention, intervention, and personal management. Srinivas Ortez DO Trauma Surgery and Surgical Critical Care * Michael Banuelos MD - 06/11/2024 9:22 AM EDT NEUROLOGICAL SURGERY PROGRESS NOTE [address] [address] Name: Alka Lawson Location: [facility] G5/A Date: 06/11/2024 Time: 9:22 AM SUBJECTIVE: NAEO OBJECTIVE: Most recent vital signs: BP: 124 mmHg/64 mmHg (06/11/24599) Pulse: 65 (06/11/24599) Resp: 17 (06/11/24599) Temp: 36 C (06/11/24799) Temp Summary: Temp Min: 36 C (96.8 F) Max: 36.6 C (97.8 F) SpO2: 98 % (06/11/24599) O2 flow rate: Supplemental O2 Delivery: Room Air, None (06/11/24799) Vital signs over last 24 hours: Systolic BP: Most Recent Systolic BP Av.1 mmHg Min: 122 mmHg Max: 155 mmHg Temperature: Most Recent Temperature Av.4 C Min: 36 C Max: 36.56 C Pulse: Pulse Avg: Pulse Av.1 Min: 60 Max: 81 Respirations: Resp Av.2 Min: 16 Max: 22 SpO2: SpO2 Av.5 % Min: 95 % Max: 100 % SpO2: SpO2 Av.5 % Min: 95 % Max: 100 % FiO2%: No data recorded ICP: No data found.CPP (adult): No data found.Intake Input/Output: (last 24 hours) Intake/Output Summary (Last 24 hours) at 06/11/2024921 Last data filed at 06/11/2024 0900 Gross per 24 hour Intake 1449.52 ml Output 866 ml Net 583.52 ml Neurologic Examination GCS 4/4/6 AO x2 not to time PERRL Face symmetric Dysarthria and word finding difficulty/slow speech (baseline from prior stroke) No pronator drift Full strength in all extremities Sensation grossly intact LABS: Blood count: Lab Results Component Value Date/Time WBC 10.38 06/11/2024 04:53 AM WBC 7.61 09/30/2020 03:07 PM WBC 8.5 12/25/1996 03:38 PM HGB 11.6 (L) 06/11/2024 04:53 AM HGB 12.8 09/30/2020 03:07 PM HGB 15.2 12/25/1996 03:38 PM HCT 36.3 06/11/2024 04:53 AM HCT 41.1 09/30/2020 03:07 PM HCT 44.3 12/25/1996 03:38 PM PLT 226 06/11/2024 04:53 AM PLT 283 09/30/2020 03:07 PM PLT 295 12/25/1996 03:38 PM Coagulation studies: Lab Results Component Value Date/Time INR 1.2 06/11/2024 04:53 AM INR 1.7 05/16/2024 01:34 PM Chemistry: Lab Results Component Value Date/Time BUN 10 06/11/2024 04:53 AM BUN 14 09/30/2020 03:07 PM CREAT 0.8 06/11/2024 04:53 AM CREAT 0.9 09/30/2020 03:07 PM GFRESTIMATED >60.0 09/30/2020 03:07 PM NA 136 06/11/2024 04:53 AM NA 140 09/30/2020 03:07 PM POTASSIUM 3.7 06/11/2024 04:53 AM POTASSIUM 3.8 09/30/2020 03:07 PM CO2 21 (L) 06/11/2024 04:53 AM CO2 29 09/30/2020 03:07 PM Imaging studies: My interpretation of: CTH shows stable IVH Problem list: Principal Problem: Intraventricular hemorrhage (HCC) Active Problems: Fall Resolved Problems: * No resolved hospital problems. * CLINICAL HISTORY AND PLAN: Alka Lawson is a 84 year old female patient with hx of afib on coumadin and prior L MCA stroke with residual dysarthria and word finding difficulty/slow speech with 2 mechanical falls in past weekand small amount of right IVH in occipital horn. Q1 neurochecks Hold anticoagulation/antiplatelets Keppra for 1w per trauma protocol Eunatremia Vitamin K 10mg x 3 day given warfarin Mechanical DVT ppx Will follow Discussed with Dr. Ceasar Banuelos MD Neurosurgery, PGY3 Associated attestation - Walt Mcdonough MD - 06/11/2024 1:47 PM EDT I saw and evaluated the patient today. I have reviewed the resident/fellow physician note and agree. I saw the patient today. Agree with the resident note. Hemorrhages a little bit unusual but she hasno abnormal finding on a recent head CT from the fall. Seems like a cord plexus hemorrhage with intraventricular extension. Bleeding has now stable. Patient has been reversed. She seems to be very pleasantly demented. 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 Otherwiseshe was looking quite well without an obvious focal exam given the limitations of the dementia. Plan to discharge and follow the patient in the office in 2-4 weeks in the TBI Clinic to ensure resolution of the traumatic intracranial findings. I did discuss this all at bedside with the Critical Careattending doctor. Walt Mcdonough [facility] Neurosurgery This document was dictated using voice recognition software. Please excuse any errors. A total of 35 minutes were spent in review of the patient's charts, direct assessment of the patient during bedside rounds with the resident/PA team, discussion of the clinical scenario with the patient and/or family members, formulating a treatment plan, conveying the treatment plan to all other relevant parties including co-managing services, coordinating/effecting the treatment plan, and documenting the treatment plan. Review of the patient's chart includes review of all relevant notes, vital signs, laboratory investigations, imaging studies, medications, past medical history/medical comorbidities, and all other factors related to the current presenting condition. * Srinivas Ortez DO - 06/11/2024 5:54 AM EDT CCM - PROGRESS NOTE [facility]-[address] [address] Name: Alka Lawson Location: [place] [id number] Date: 06/11/2024 Time: 5:54 AM PATIENT DESCRIPTION: Alka Lawson is an 84 year old female on coumadin for CVA who was transferred from [facility] as a level 2alert after presenting with a chief complaint of dizziness following diagnostic imaging remarkable for a right occipital horn intraventricular hemorrhage s/p reversal w/ Kcentra + Vit K (INR admission 1.8 >> 1.0), lactate 4.5 >> 2.4 s/p bolus. ADMISSION HPI: Alka Lawson is an 84 year old female presented as a level 2 trauma alert after a fall. Patient states she has suffered multiple mechanical falls over the past three days, most recently today in her home. Patient states she believes she was on the floor for an hour before she was able to call for help. (+) headstrike (- ) LOC. Patient was ultimately transferred to [facility] where she was found to have ri ght occipital horn intraventricular hemorrhage, prompting her transfer to [facility] for further evaluation. On examination in the trauma bay, pt is AOx4 and GCS 15. Does not endorse pain, nausea, or SOB at this time. Of note, patient takes coumadin VERSE WRITER for hx CVA and received Kcentra and vitamin K at [facility] prior to transfer. EVENT SUMMARY: 06/10 - transferred from [facility] for IVH s/p Kcentra + Vitamin K; neurosurgery consulted, repeat CTH x 2showed increased SAH 06/11 - repeat CTH @ 0615 stable, diet advanced per speech INTERVAL 24-HOUR EVENTS: No acute events reported overnight. AF, VSS on room air. Patient laying comfortably in bed. Voidingspontaneously. Bowels Functioning. Pain controlled on current regimen. Denies BRAVO, cp, SOB, abdominal pain, dizziness, lightheadedness, and vision changes. Ambulating at baseline. No complaints at this time. CONSTITUTIONAL DATA: BP: 124 mmHg/64 mmHg (06/11/24599) Pulse: 65 (06/11/24599) Resp: 17 (06/11/24599) Temp: 36 C (06/11/24799) Temp Summary: Temp Min: 36 C (96.8 F) Max: 36.6 C (97.8 F) SpO2: 98 % (06/11/24599) O2 flow rate: Supplemental O2 Delivery: Room Air, None (07/24/24 0800) PHYSICAL EXAM: Constitutional: no acute distress HEENT: normal: normocephalic, atraumatic; no masses, tenderness, or adenopathy Neck: supple, normal range of motion CV: normal heart sounds, intact distal pulses Chest: normal respiratory effort Abdomen: normal: soft, bowel sounds normal, no masses, tenderness or organomegaly Musculoskeletal: FROM of upper and loweer bilateral extremities Skin: warm, dry, intact: Neuro: alert, oriented to person, place, and time LABORATORY VALUES: reviewed K 3.7, Mg2+ 1.4, PO4 2.4 RADIOGRAPHIC STUDIES: reviewed Initial CTH @ 1652: CT head shows small amount of hemorrhage settling in the dependent portion of the right occipital horn, and increased density of the left occipital choroid plexus indeterminate for choroid plexus hemorrhage versus progression of choroid calcifications since prior exam. Repeat CTH @ 2337: Subarachnoid hemorrhage level identified in the posterior horn of the right and left lateral ventricles is increased when compared to the previous study. Dilated ventricles are present but unchanged when compared to the prior studies. Repeat CTH @ 0615: Unchanged size of the hemorrhage suspended from the right choroid plexus in the atrium of the right lateral ventricle and unchanged volume of intraventricular hemorrhage. No evidence of new hemorrhage. Active Problems: Multiple Mechanical Falls (POA: Yes) Intraventricular Hemorrhage (POA: Yes) POA = Present On Admission ASSESSMENT: Alka Lawson is a 84 year old year old female on coumadin for a h/o CVA who was transferred from [facility] after sustaining multiple ground level mechanical falls for a right occipita horn intraventricular hemorrhage s/p Kcentra and Vitamin K reversal for a higher level of care here on hospital day 1. SYSTEM BASED PLAN: NEURO: R occipital horn IVH, Analgesia/Pain Regimen R Occipital horn intraventricular hemorrhage - Neurosurgery consulted: recommendations implemented - repeat CTH shows increased SAH; updated neurosurgery and plans for third CTH this morning - third repeat CTH ordered - q1h neuro checks - Hold anticoagulation/antiplatelets - Keppra for 1w per trauma protocol - okay for mechanical DVT Ppx only Analgesia/Pain control: - ATC tylenol, oxy 5/10 RESP: no acute pathophysiology - IS, Flutter therapy, RPDP CARDIAC / VASCULAR: h/o questionable heart block, A-fib, HLD per records - VERSE WRITER meds: metoprolol tartrate 50 mg BID, HCTZ 12.5 mg daily - TTE and troponins ordered GI / HEPATOBILIARY: no acute pathophysiology - currently NPO; speech eval pending - GI ppx: restart VERSE WRITER prilosec - Bowel regimen: senna, colace - Zofran prn for nausea Orders Placed This Encounter Procedures NPO Except Meds RENAL / METABOLIC / FLUIDS: h/o CKD, hypokalemia, hypomagnesia, hypophosphatemia - lactic acidosis resolved - K+, Mg2+, and PO4 repleted - IVF isolyte 100 ml/h - unmeasured spontaneous voids - daily BMP; Replete electrolytes PRN INFECTIOUS DISEASES: UTI with positive U/A - ceftriaxone 1g daily x 5 days (end date 06/15/2024) - urine cultures pending ENDOCRINE: h/o T2DM, Hypothyroidism T2DM - Euglycemic - SSI medium and Accu-cheks - holding VERSE WRITER glipizide and metformin Hypothyroidism - restart VERSE WRITER levothyroxine 125 mcg daily HEMATOLOGIC: h/o CVA - therapeutic AC reversed at [facility] with Kcentra and Vitamin K - hold VERSE WRITER coumadin 5mg daily until follow up with neurosurgery - Daily CBC MUSCULOSKELETAL / DERM: Gout - continue VERSE WRITER meds: allopurinol 200 BID P.T./O.T. / MOBILITY / WOUND CARE: - PT/OT consulted: evaluation pending DVT PROPHYLAXIS: - TEDs/SCDs Peripheral Line Left Hand 22 Gauge (Active) Number of days: 1 Peripheral Line Left;Lower Arm 22 Gauge (Active) Number of days: 1 GLOBAL ISSUES: Analgesia: protocol with control Sedation: N/A Delirium/Confusion Assessment Method for ICU (CAM-ICU): CAM-ICU negative HOB Elevation: greater than 30 degress Nutrition: PO DVT Prophylaxis: pneumatic compression devices alone due to chemoprophylaxis contraindication Stress Ulcer Prophylaxis: PPI therapy for other indication Glycemic Control: controlled - protocol Central Line Necessity Reviewed: N/A Aldana: N/A Disposition: keep in ICU Patient's decisional capacity: has capacity to make decisions Communication with Patient/Family: No meeting held. Goals of Care: decrease pain and discomfort Narinder Ruelas MD BS General Surgery Resident, PGY-3 [facility] 06/11/2024 Briefly, the patient is 84 yo female who fell and sustained IVH, SAH Overnight, Imaging stable Neuro: neuro checks, keppra per protocol, outpatient neurosurgery follow up CV: update TTE, resume clinical trials systems administrator meds, hold anticoag Pulm: no acute issues GI/FEN: [employer] eval Renal: no acute issues Heme: no acute issues MSK: no acute issues Endo: no acute issues ID: abx for uti poa PPX: [facility] Dispo: TICU I have personally provided 35 minutes of critical care time exclusive of time spent on separately billable procedures. Time includes review of laboratory data, radiology results and monitoring for potential decompensation. Interventions were performed as documented above. Upon my evaluation, this patient had a high probability of imminent or life- threatening deterioration due to intracranial hemorrhage, which required my direct attention, intervention, and personal management. Srinivas Ortez DO Trauma Surgery and Surgical Critical Care documented in this encounter H&P Notes * Srinivas Ortez DO - 06/11/2024 7:29 AM EDT TRAUMA TERTIARY SURVEY [address] [address] Name: Alka Lawson Location: [facility] [id number] Date: 06/11/2024 Time: 7:29 AM PHYSICAL EXAM: Head: normocephalic / atraumatic Eyes: extraocular muscles intact ENT: tympanic membranes bilaterally clear, oropharynx clear Neck: supple, non-tender, trachea midline Respiratory: normal respiratory effort on room air Cardiovascular: regular rate and rhythm, palpable peripheral pulses present Abdomen: soft, non-tender, non-distended, normal bowel sounds Back: no tenderness across thoracic / lumbar spine Pelvis: non-tender, stable to anterior-posterior/lateral compression Genitourinary: deferred Musculoskeletal: no palpable long bone deformities, motor / sensation grossly intact Skin: grossly intact Neurologic: GCS Adult: eyes open 4 = spontaneous, best verbal response 5 = verbally appropriate forage, best motor response 6 = obeys commands appropriate for age, alert and oriented x3, slowed speech and mild word searching which is different from her baseline per and son UA: positive, currently being treated with ceftriaxone SUBSTANCE ABUSE: ETOH: negative Substance Screen: negative CT SCAN: Head - acute findings, Cervical Spine - no acute injuries, Thorax - no acute injuries, andAbdomen/Pelvis - no acute injuries C-SPINE CLEARANCE: Yes - by physical exam and imaging RADIOGRAPHS: CXR - no acute injuries MEDICATION RECONCILIATION: done NEW DIAGNOSTIC TESTS ORDERED: repeat CTH CONSULTS: Neurosurgery INCIDENTAL FINDINGS: Chronic L1 compression fracture I have reviewed the patients controlled substance dispensing history in the Prescription Drug Monitoring Program in compliance with the [facility] regulations before prescribing a controlled substance: no concerns, will proceed. Narinder Ruelas MD BS General Surgery Resident, PGY-3 [facility] 06/11/2024 * Gabriella Nielsen, Jeffery Pete MD - 06/10/2024 8:48 PM EDT HISTORY AND PHYSICAL EXAMINATION - Trauma Surgery [address] [address] Name: Alka Lawson Location: Date: 06/10/2024 Time: 8:48 PM Date and Time Patient was Seen: 06/10/2024 at 8:48 PM FINAL ADMISSION STATUS: Alert Level 2, time - 2034 Dr. Garcia led the Trauma Team in the care of this patient. The following represents documentation ofthe resuscitation performed by the entire trauma team under the leadership of the physician. There was pre-hospital notification of the case and patient condition. Chief Complaint: Fall with head injury History of Present Illness: 84 year old female presented as a level 2 trauma alert after a fall. Patient states she has suffered multiple mechanical falls over the past three days, most recently today in her home. Patient states she believes she was on the floor for an hour before she was able to call for help. (+) headstrike(-) LOC. Patient was ultimately transferred to [facility] where she was found to have right occipital horn intraventricular hemorrhage, prompting her transfer to [facility] for further evaluation. On examination in the trauma bay, pt is AOx4 and GCS 15. Does not endorse pain, nausea, or SOB at this time. Of note, patient takes coumadin VERSE WRITER for hx CVA and received Kcentra and vitamin K at [facility] prior to transfer. MECHANISM OF INJURY: Fall Height of Fall: ground MODE OF TRANSPORTATION: ambulance LOSS OF CONSCIOUSNESS: no TETANUS VACCINE: There are no preventive care reminders to display for this patient. Administered in Trauma [place]: no PAST MEDICAL HISTORY: Past Medical History: Diagnosis Date Acute respiratory disease due to COVID-19 virus 07/27/2021 Back injury Cystocele, midline 05/28/2012 Demyelinating changes in brain ([facility]) 02/16/201101/27--DrMittal-IgG synthesis rate, myelin basic protein, CSF angiotensin converting enzyme, CSF lyme disease DNA PCR and HSV were all within the normal range>>f/u 05/2011--rec fu prn Depression DM type 2 causing renal disease ([facility]) 11/16/2010 DM type 2, goal A1c below [...] eval> >01/31-dc fe ILD (interstitial lung disease) ([facility]) 02/14/2023 Internal hemorrhoids 01/26/2014 Mixed incontinence urge and stress (male)(female) 11/16/2010 Nocturnal hypoxia 05/14/201506/02--night ox 01/31 my read-desaturation to 87%.-?pattern osas. >refer-sleep cl eval-formerly [facility] sleep study>08/12/15--no osas, -fu 09/02---rec [...] core bx dx intraductal papillomas - [facility] COLONOSCOPY, DIAGNOSTIC (RECTUM) 03/12/2015 COLONOSCOPY FLEXIBLE PROXIMAL DIAGNOSTIC performed by Neel Lynn MD at ENDOSCOPY [facility] COLONOSCOPY, DIAGNOSTIC (RECTUM) 09/28/2017 COLONOSCOPY FLEXIBLE PROXIMAL DIAGNOSTIC performed by Leonela Majano MD at [facility]OSCOPY [facility] COLONOSCOPY, DIAGNOSTIC (RECTUM) N/A 10/12/2020 COLONOSCOPY FLEXIBLE PROXIMAL DIAGNOSTIC performed by Nelda Tinoco DO at ENDOSCOPY [facility] DIABETIC EYE EXAM 04/11/11 No diabetic retinopathy - Dr. Joseph. EGD, FLEXIBLE, DIAGNOSTIC 09/20/2011 UPPER GI ENDOSCOPY DIAGNOSTIC performed by YANET VALLES at [facility]OSCOPY [facility] EGD, FLEXIBLE, DIAGNOSTIC 03/12/2015 ESOPHAGOGASTRODUODENOSCOPY (EGD), FLEXIBLE, TRANSORAL, DIAGNOSTIC performed by Neel Lynn MD at [facility] EGD, FLEXIBLE, DIAGNOSTIC 09/28/2017 ESOPHAGOGASTRODUODENOSCOPY (EGD), FLEXIBLE, TRANSORAL, DIAGNOSTIC performed by Leonela Majano MD at [facility]COPY [facility] EGD, FLEXIBLE, DIAGNOSTIC N/A 10/12/2020 ESOPHAGOGASTRODUODENOSCOPY (EGD), FLEXIBLE, TRANSORAL, DIAGNOSTIC performed by Nelda Tinoco DO at ENDOSCOPY [facility] EGD, W/ENDOSCOPIC US 10-25-11 fatty liver and pancreas infiltration benign lymph node jaxon hepatis region EXC BREAST LESION RADMARK Left 07/04/2017 EXCISION OF BREAST LESION RADIOLOGICAL MARKER performed by Linnea Cardozo MD at OR [facility] MISCELLANEOUS ORDER ([facility] ONLY) 1972 ectopic preg --?left at 4mths PARTIAL HYSTERECTOMY 1979 REMOVAL OF RUPTURED APPENDIX age 15 years REPAIR BLADDER & VAGINA, CYSTOCELE 1979 [facility] CURRENT HOSPITAL MEDICATIONS: Note that discontinued and completed medications (per the MAR) continue to display for 24 hours. Ordered medications to be given in the future also display. Current Facility-Administered Medications Medication Dose Route Frequency Provider plasma-LYte 148 infusion continuous PRN Gabriellajim Nielsen, Jeffery Pete MD Current Outpatient Medications Medication Synthroid 125 MCG Oral Tablet Warfarin Sodium 2.5 MG Oral Tablet (Coumadin) Gabapentin 300 MG Oral Capsule (Neurontin) Omeprazole 40 MG Oral Capsule Delayed Release (PriLOSEC) hydroCHLOROthiazide 12.5 MG Oral Capsule (Hydrodiuril) Allopurinol 100 MG Oral Tablet (Zyloprim) glipiZIDE ER 10 MG Oral Tablet Extended Release 24 Hour (Glucotrol XL) metFORMIN HCl 1000 MG Oral Tablet (Glucophage) OneTouch Ultra In Vitro Strip (Glucose Blood) Clotrimazole-Betamethasone 1-0.05 % External Cream Metoprolol Tartrate 50 MG Oral Tablet (Lopressor) Acetaminophen 325 MG Oral Tablet (Tylenol) Hydrocortisone 1 % External Cream Losartan Potassium 25 MG Oral Tablet (Cozaar) Atorvastatin Calcium 80 MG Oral Tablet (Lipitor) Vitamin D3 25 MCG (1000 UT) Oral Capsule zoster vac recomb adjuvanted (SHINGRIX) 50 MCG/0.5ML injection Cyanocobalamin (B-12) 1000 MCG TABS ONETOUCH DELICA LANCETS [facility] ALLERGIES: Diphenhydramine, Epinephrine, Inderal [propranolol hcl], Lisinopril, Mepivacaine hcl, and Zocor [simvastatin] SOCIAL HISTORY: Social History Tobacco Use Smoking status: Never Smokeless tobacco: Never Vaping Use Vaping status: Never Used Substance Use Topics Alcohol use: No Drug use: No FAMILY HISTORY: Family History Problem Relation Name Age of Onset Cancer Brother Colon Brain Aneurysm Sister Other (CKD) Daughter Stage III Diabetes Brother Stroke Brother Neurological Disorder Sister MS Dementia Sister No Past Hx Sister Other (ESRD) Other both parents; cause unknown; dad not on HD, M was REVIEW OF SYSTEMS: All others negative other than those noted in the HPI. COLLARED: no BACKBOARD: no INTUBATED: no PHYSICAL EXAM: Most Recent Vital Signs: BP: 155 mmHg/64 mmHg (06/10/242041) Pulse: 80 (06/10/242041) Resp: 16 (06/10/242041) Temp: 36.28 C (06/10/242041) Temp Summary: Temp Min: 36.3 C (97.3 F) Max: 36.3 C (97.3 F) SpO2: 100 % (06/10/242041) O2 flow rate: Supplemental O2 Delivery: Rhythm: NSR Head: normocephalic / atraumatic Eyes: pupils 3 mm, bilaterally reactive to light, extraocular muscles intact ENT: tympanic membranes bilaterally clear, oropharynx clear Neck: supple, non-tender, trachea midline Respiratory: clear to auscultation bilaterally Cardiovascular: palpable pulses present, regular rhythm Abdomen: soft, nontender, nondistended Back: no tenderness across thoracic / lumbar spine, old bruising right buttock Pelvis: non-tender, stable to anterior-posterior/lateral compression Rectal: deferred Musculoskeletal: no palpable long bone deformities, motor / sensation grossly intact Skin: grossly intact Neurologic: GCS Adult: eyes open 4 = spontaneous, best verbal response 5 = verbally appropriate forage, best motor response 6 = obeys commands appropriate for age, alert and oriented x3 LABS: Labs reviewed as indicated below: Abnormal Labs Reviewed - No abnormal labs to display IMAGING: CT HEAD/BRAIN WO CONTRAST Result Date: 06/10/[address] head shows small amount of hemorrhage settling in the dependent portion of the right occipital horn, and increased density of the left occipital choroid plexus indeterminate for choroid plexus hemorrhage versus progression of choroid calcifications since prior exam. 2. Otherwise, CT head shows chronic findings, including intracranial atherosclerosis, cerebral volume loss and patc hy lucency in the bilateral cerebral white matter, most commonly reflecting chronic small vessel ischemic change. 3. CT cervical spine shows no acute osseous abnormality. Advanced degenerative disk and bony changes of the cervical spine are noted, as discussed above. Intraspinal hematomas and ligamentous, disc and spinal cord abnormalities are not reliably assessed on CT scan, therefore MRI may be useful if clinically indicated. Note:Above results were provided to and acknowledged by USHA MARROQUIN today at approximately 5:31 pm, by secure text. CT C SPINE WO CONTRAST Result Date: 06/10/[address] head shows small amount of hemorrhage settling in the dependent portion of the right occipital horn, and increased density of the left occipital choroid plexus indeterminate for choroid plexus hemorrhage versus progression of choroid calcifications since prior exam. 2. Otherwise, CT head shows chronic findings, including intracranial atherosclerosis, cerebral volume loss and patch y lucency in the bilateral cerebral white matter, most commonly reflecting chronic small vessel ischemic change. 3. CT cervical spine shows no acute osseous abnormality. Advanced degenerative disk and bony changes of the cervical spine are noted, as discussed above. Intraspinal hematomas and ligamentous, disc and spinal cord abnormalities are not reliably assessed on CT scan, therefore MRI may beuseful if clinically indicated. Note:Above results were provided to and acknowledged by USHA MARROQUIN today at approximately 5:31 pm, by secure text. XR CHEST 1 VIEW Result Date: 06/10/2024 IMPRESSION: Slightly decreased lung volumes. No focal consolidation. THIS DOCUMENT HAS BEEN ELECTRONICALLY SIGNED BY CHRIST MCKEON MD CT CHEST W CONTRAST Result Date: 06/10/2024 IMPRESSION: 1. No acute posttraumatic abnormality 2. Low lung volumes with atelectasis PROCEDURE INFORMATION: Exam: CT Abdomen And Pelvis With Contrast Exam date and time: 06/10/2024 4:44 PM Age: 84 years old Clinical indication: Other: Significant trauma with possible severe intraabdominal injury or abdominal pain TECHNIQUE: Imaging protocol: Computed tomography of the abdomen and pelvis with contrast. Radiation optimization: All CT scans at this facility use at least one of these dose optimization techniques: automated exposure control; mA and/or kV adjustment per patient size (includes targeted exams where dose is matched to clinical indication); or iterative reconstruction. Contrast material: ISOVUE 370; Contrast volume: 80 ml; Contrast route: INTRAVENOUS (IV); COMPARISON: CT ABD/PELVIS WO IV/ORAL CONTRAST 04/14/2022 2:11 PM FINDINGS: Lungs: No acute abnormality. Liver: Normal. No mass. Gallbladder and biliary ducts: Normal. No calcified stones. No ductal dilation. Pancreas: Normal. No ductal dilation. Spleen: Normal. No splenomegaly. Adrenal glands: Normal. No mass. Kidneys and ureters: Normal. No hydronephrosis. Stomach and bowel: Fluid-filled nonspecific loops of small bowel. Colon is collapsed, accentuating appearance of the wall. Mild colitis notexcluded. Appendix: No evidence of appendicitis. Intraperitoneal space: Unremarkable. No free air. No significant fluid collection. Vasculature: Aortic ectasia and aorta iliac atherosclerosis is present. There are numerous benign phleboliths in the pelvis. Lymph nodes: Unremarkable. No enlarged lymph nodes. Urinary bladder: There is mild bladder wall thickening consistent with incomplete distension, chronic outflow obstruction, or cystitis. Reproductive: Unremarkable as visualized. Bones/joints: L1 compression deformity was present on previous study from 2022 , and appears old. Soft tissues: Unremarkable. IMPRESSION: 1. L1 compression deformity was present on previous study from 2022 , and appears old. 2. Colon is collapsed, accentuating appearance of the wall. Mild colitis not excluded. THIS DOCUMENT HAS BEEN ELECTRONICALLY SIGNED BY CHRIST MCKEON MD CT ABD/PELVIS W IV CONTRAST - WO ORAL CONTRAST Result Date: 06/10/2024 IMPRESSION: 1. No acute posttraumatic abnormality 2. Low lung volumes with atelectasis PROCEDURE INFORMATION: Exam: CT Abdomen And Pelvis With Contrast Exam date and time: 06/10/2024 4:44 PM Age: 84 years old Clinical indication: Other: Significant trauma with possible severe intraabdominal injury or abdominal pain TECHNIQUE: Imaging protocol: Computed tomography of the abdomen and pelvis with contrast. Radiation optimization: All CT scans at this facility use at least one of these dose optimization techniques: automated exposure control; mA and/or kV adjustment per patient size (includes targeted exams where dose is matched to clinical indication); or iterative reconstruction. Contrast material: ISOVUE 370; Contrast volume: 80 ml; Contrast route: INTRAVENOUS (IV); COMPARISON: CT ABD/PELVIS WO IV/ORAL CONTRAST 04/14/2022 2:11 PM FINDINGS: Lungs: No acute abnormality. Liver: Normal. No mass. Gallbladder and biliary ducts: Normal. No calcified stones. No ductal dilation. Pancreas: Normal. No ductal dilation. Spleen: Normal. No splenomegaly. Adrenal glands: Normal. No mass. Kidneys and ureters: Normal. No hydronephrosis. Stomach and bowel: Fluid-filled nonspecific loops of small bowel. Colon is collapsed, accentuating appearance of the wall. Mild colitis notexcluded. Appendix: No evidence of appendicitis. Intraperitoneal space: Unremarkable. No free air. No significant fluid collection. Vasculature: Aortic ectasia and aorta iliac atherosclerosis is present. There are numerous benign phleboliths in the pelvis. Lymph nodes: Unremarkable. No enlarged lymph nodes. Urinary bladder: There is mild bladder wall thickening consistent with incomplete distension, chronic outflow obstruction, or cystitis. Reproductive: Unremarkable as visualized. Bones/joints: L1 compression deformity was present on previous study from 2022 , and appears old. Soft tissues: Unremarkable. IMPRESSION: 1. L1 compression deformity was present on previous study from 2022 , and appears old. 2. Colon is collapsed, accentuating appearance of the wall. Mild colitis not excluded. THIS DOCUMENT HAS BEEN ELECTRONICALLY SIGNED BY CHRIST MCKEON MD Chest X-Ray: negative for acute traumatic injury eFAST Ultrasound: negative for acute traumatic injury CT Scan Head: intracranial hemorrhage as above CT Scan Neck: negative for acute traumatic injury CT Scan Chest: negative for acute traumatic injury CT Scan Abdomen/Pelvis: negative for acute traumatic injury CONSULTS: Neurosurgery, called @ 2050 PROCEDURES COMPLETED: None ASSESSMENT: Active Problems: * No active hospital problems. * POA = Present On Admission Intraventricular hemorrhage Lactic acidosis Multiple recent falls PLAN: Neurologic Intraventricular hemorrhage Hx prior L MCA CVA - Appreciate Neurosurgery recs - Hold VERSE WRITER coumadin at this time Analgesia: tylenol ATC, oxy 5/10 prn; hold VERSE WRITER gabapentin Sedation: n/a Cardiovascular HLD, HTN - Restart VERSE WRITER metoprolol, atorvastatin - Hold VERSE WRITER losartan, HCTZ Respiratory No acute issues - RPDP GI GERD - Restart VERSE WRITER prilosec Diet: NPO x meds; holding VERSE WRITER vitamins Bowel Regimen: n/a LBM: GI ppx: VERSE WRITER PPI Renal/ Lactic acidosis - q6h lactate - continue fluid resuscitation Fluids: isolyte @ 100 cc/hr Heme No acute issues VTE ppx: SCDs; holding chemoppx in setting of brain bleed Endocrine T2DM - SSI for VERSE WRITER metformin, glipizide Hypothyroidism - restart VERSE WRITER synthroid ID No acute issues MSK/Derm Gout - Holding VERSE WRITER allopurinol Lines/Tubes/Devices LINES ALL Duration Peripheral Line Left Hand 22 Gauge <1 day Patient was examined and was discussed with Dr. Garcia. Jeffery Quiroz Jr, MD PGY-5, Department of General Surgery 06/11/2024 12:19 AM Associated attestation - Jessica Garcia MD - 06/11/2024 3:10 AM EDT I saw and evaluated the patient 06/10. I have reviewed the resident/fellow physician note and agree. Pt seen with the trauma team for level 2 trauma alert. With with reported fall on Sunday, states she has fallen the last two days as well, but seems an unreliable historian. Went to [facility] today and was found to have IVH so she was transferred here. She's on coumadin for hx of stroke and was reversed with kcentra and vit k. No consistent complaints. Primary survey: A: Intact B: equal bilaterally. RR18. Sats 100%on RA C: HR85, BP155/64 Pulses palpable on distal extremities x4. No external bleeding noted D: GCS 15. Motor/sensory intact. Pupils 3 and reactive E: fully exposed. Warm room, warm blankets. Secondary survey: PE: old brusing on back CXR: negative EFAST: negative CTs obtained: Head, c-spine, chest, abdomen, pelvis CT findings: R IVH Labs: INR 1.0 (from 1.8 at [facility] after reversal), LA 2.4 (from 4.5 at [facility] and bolus) Impression/Plan: Admit to TICU. NSGY consult. Repeat CTH and will obtain CTA neck at that time CCM time 45 minutes documented in this encounter Procedure Notes * Raciel Coleman MD - 06/10/2024 11:16 PM EDTAssociated Order(s): EKG REASON FOR STUDY: rhonda CONCLUSIONS: Marked sinus bradycardia with A-V dissociation and Junctional bradycardia with Sinus/atrial capture Left ventricular hypertrophy with secondary QRS widening ( R in aVL , [place] product ) ST & T wave abnormality, consider inferolateral ischemia Abnormal ECG When compared with ECG of 04-Dec-2022 18:25, Significant changes have occurred Ventricular Rate: 39 Atrial Rate: 42 QRS Duration: 118 QT/QTc: 490/394 ms P-R-T [place]: 13 : -28 : 269 degrees documented in this encounter Consult Notes * Yoselin Rodriguez, [employer] - 06/11/2024 11:45 AM EDTAssociated Order(s): ADULT SPEECH THERAPY CONSULT IP (ACUTE CARE REHAB) CLINICAL BEDSIDE SWALLOW EVALUATION - Speech-Language Pathology [address] [address] Name: Alka Lawson Location: [facility] G504/[id number] Date: 06/11/2024 Time: 11:45 AM Patient Status: Inpatient Insurance: Payor: MEDICARE / Plan: MEDICARE A AND B / Product Type: *No Product type* / GENERAL INFORMATION: Admission Date: 06/10/2024 Referring Physician: DO Neelima Pertinent Medical History: Per Epic H&P 06/10/24: "84 year old female presented as a level 2 trauma alert after a fall. Patient states she has suffered multiple mechanical falls over the past three days, most recently today in her home. Patient states she believes she was on the floor for an hour before she was able to call for help. (+) headstrike (-) LOC. Patient was ultimately transferred to [facility] where she was found to have right occipital horn intraventricular hemorrhage, prompting her transfer to [facility] for further evaluation. On examination in the trauma bay, pt is AOx4 and GCS 15. Does not endorse pain, nausea, or SOB at this time. Of note, patient takes coumadin VERSE WRITER for hx CVA and received Kcentra and vitamin K at [facility] prior to transfer." Per CXR 06/10/24: "IMPRESSION: Slightly decreased lung volumes. No focal consolidation." Past Medical History: Diagnosis Date Acute respiratory [...] eval> >01/31-dc fe ILD (interstitial lung disease) ([facility]) 02/14/2023 Internal hemorrhoids 01/26/2014 Intraventricular hemorrhage ([facility]) 06/11/2024 Mixed incontinence urge and stress (male)(female) 11/16/2010 Nocturnal hypoxia 05/14/201506/02--night ox 01/31 my read-desaturation to 87%.-?pattern osas. >refer-sleep cl eval-formerly [facility] sleep study>08/12/15--no osas, -fu 09/02---rec O2 defers Obesity, Class III, BMI 40-49.9 (morbid obesity) ([facility]) 05/03/2010 Per Obesity Protocol, #19 ICD-10 update of inactive term Pneumonia due to COVID-19 virus 07/27/2021 Severe obesity with body mass index (BMI) of 35.0 to 35.9 and comorbidity ([facility]) 05/11/2011 Stroke ([facility]) Trochanteric bursitis of right hip 11/27/2012 Urgency incontinence 10/02/2014 Varicose vein of leg 05/28/2012 Mild lt leg Past Surgical History: Procedure Laterality Date BX BREAST PERCUT W/O IMAGE Left 05/02/2017 05/02/2017 left breast , ultrasound guided core bx dx intraductal papillomas - [facility] COLONOSCOPY, DIAGNOSTIC (RECTUM) 03/12/2015 COLONOSCOPY FLEXIBLE PROXIMAL DIAGNOSTIC performed by Neel Lynn MD at [facility] COLONOSCOPY, DIAGNOSTIC (RECTUM) 09/28/2017 COLONOSCOPY FLEXIBLE PROXIMAL DIAGNOSTIC performed by Leonela Majano MD at [facility] COLONOSCOPY, DIAGNOSTIC (RECTUM) N/A 10/12/2020 COLONOSCOPY FLEXIBLE PROXIMAL DIAGNOSTIC performed by Nelda Tinoco DO at ENDOSCOPY [facility] DIABETIC EYE EXAM 04/11/11 No diabetic retinopathy - Dr. Joseph. EGD, FLEXIBLE, DIAGNOSTIC 09/20/2011 UPPER GI ENDOSCOPY DIAGNOSTIC performed by YANET VALLES at [facility] EGD, FLEXIBLE, DIAGNOSTIC 03/12/2015 ESOPHAGOGASTRODUODENOSCOPY (EGD), FLEXIBLE, TRANSORAL, DIAGNOSTIC performed by Neel Lynn MD at [facility] EGD, FLEXIBLE, DIAGNOSTIC 09/28/2017 ESOPHAGOGASTRODUODENOSCOPY (EGD), FLEXIBLE, TRANSORAL, DIAGNOSTIC performed by Leonela Majano MD at [facility] EGD, FLEXIBLE, DIAGNOSTIC N/A 10/12/2020 ESOPHAGOGASTRODUODENOSCOPY (EGD), FLEXIBLE, TRANSORAL, DIAGNOSTIC performed by Nelda Tinoco DO at ENDOSCOPY [facility] EGD, W/ENDOSCOPIC US 10-25-11 fatty liver and pancreas infiltration benign lymph node jaxon hepatis region EXC BREAST LESION RADMARK Left 07/04/2017 EXCISION OF BREAST LESION RADIOLOGICAL MARKER performed by Linnea Cardozo MD at [facility] MISCELLANEOUS ORDER ([facility] ONLY) 1972 ectopic preg --?left at 4mths PARTIAL HYSTERECTOMY 1979 REMOVAL OF RUPTURED APPENDIX age 15 years REPAIR BLADDER & VAGINA, CYSTOCELE 1980 [facility] Current Diet/Dysphagia History: NPO except meds; pt passed nursing dysphagia screen. Pt reports consuming softer, chopped solids and thin liquids at baseline. Cognitive-Communication: Pt awake and alert, able to follow basic commands and express wants/needs given additional time. Pt hx of prior stroke with residual dysarthria and word finding difficulties. Barriers to Learning: Medical Status Hearing Acuity: Deferred Best Learning Method: Auditory Pain: No complaints of pain ORAL MECHANISM EXAM: Facial Symmetry Slight L asymmetry at rest Labial Function Within functional limits Lingual Function Within functional limits Velar Function Did not assess Dentition: Natural PROTECTIVE MECHANISMS: Volitional Swallow Within Functional Limits Volitional Throat Clearing Did not test Volitional Cough Did not test Vocal Quality Within Functional Limits Tracheostomy Tube: Not Present Ventilator Status: Not Applicable SWALLOWING FUNCTION: ORAL PREPARATION PHASE: Puree (IDDSI Level 4): Within functional limits Soft and Bite-Sized (IDDSI Level 6): Within functional limits Regular (IDDSI Level 7): Minimally prolonged mastication Thin Liquid (IDDSI Level 0): Within functional limits ORAL PHASE: Puree (IDDSI Level 4): Within functional limits Soft and Bite-Sized (IDDSI Level 6): Within functional limits Regular (IDDSI Level 7): Within functional limits Thin Liquid (IDDSI Level 0): Within functional limits PHARYNGEAL PHASE: Puree (IDDSI Level 4): Within functional limits Soft and Bite-Sized (IDDSI Level 6): Within functional limits Regular (IDDSI Level 7): Within functional limits Thin Liquid (IDDSI Level 0): Within functional limits RECOMMENDATIONS/PLAN: Videofluoroscopy: Not indicated Diet Level: Easy to Chew Liquid Level: Thin Presentation of Medication: As tolerated Positioning: Seated with 90 degree hip flexion Level of Supervision: close Use of Straws: allowed Compensatory Techniques to be Utilized During PO Intake: Small Bites/Sips, Alternate Solids & Liquids, and Slow Rate of Intake Additional findings: N/A ANTICIPATED FREQUENCY (ON EVAL): N/A DIAGNOSIS/IMPRESSIONS: Diagnosis/Impressions: Mild oral dysphagia - suspect baseline Pt was presented with trials of thin liquids (IDDSI Level 0) via tsp, cup, and straw, puree (IDDSI level 4), soft & bite-sized (IDDSI level 6), and regular (IDDSI level 7) consistencies. Mild oral dysphagia noted, characterized by minimally prolonged mastication of regular consistencies. Pharyngeal phase suspected to be within functional limits for swallow timing and hyolaryngeal elevation. No overt s/s of penetration/aspiration noted for thin liquids via tsp, cup, and straw, puree, soft & bite-sized, or regular consistencies. Rehab Potential: N/A TREATMENT PLAN: Swallowing Treatment: Not Indicated Treatment Goals: N/A Additional Recommendations: If s/s of aspiration or difficulty noted, downgrade as appropriate and re-consult [employer]. The above information was discussed with the patient/RN/Dr. Allred. Yes The patient/RN/Dr. Allred was in Agreement * Reina Kee, DPT - 06/11/2024 11:14 AM EDTAssociated Order(s): ADULT PHYSICAL THERAPY CONSULT IP GENERAL EVALUATION - Physical Therapy [address] [address] Name: Alka Lawson Location: [facility] G504/A Date: 06/11/2024 Time: 1113 Alka Lawson is a/an 84 year old female. Patient Status: Inpatient Insurance: Payor: MEDICARE Plan: MEDICARE A AND B Product Type: *No Product type* Payor: [employer] [facility] [employer]) Plan: [employer] MEDICARE SUPPLEMENT Product Type: *No Product type* Patient Seen: at bedside, nursing cleared patient for therapy Patient Identified By: Name, ID Band and Date Diagnosis: intraventricular hemorrhage s/p fall, UTI (06/11/24 111) Status of treatment: Evaluation completed (06/11/241113) Orders: PT evaluation and treatment;OOB (06/11/241113) Weight Bearing Status: Weight bearing as tolerated (06/11/24 111) Precautions: Alarms;Falls;Safety (06/11/24 111) Total Treatment Time--free text: 17 (06/11/24 111) Past Medical History: Past Medical History: Diagnosis [...] eval> >01/31-dc fe ILD (interstitial lung disease) ([facility]) 02/14/2023 Internal hemorrhoids 01/26/2014 Intraventricular hemorrhage ([facility]) 06/11/2024 Mixed incontinence urge and stress (male)(female) 11/16/2010 Nocturnal hypoxia 05/14/201506/02--night ox 01/31 my read-desaturation to 87%.-?pattern osas. >refer-sleep cl eval-formerly [facility] sleep study>08/12/15--no osas, -fu 09/02---rec O2 defers Obesity, Class III, BMI 40-49.9 (morbid obesity) ([facility]) 05/03/2010 Per Obesity Protocol, #19 ICD-10 update of inactive term Pneumonia due to COVID-19 virus 07/27/2021 Severe obesity with body mass index (BMI) of 35.0 to 35.9 and comorbidity ([facility]) 05/11/2011 Stroke ([facility]) Trochanteric bursitis of right hip 11/27/2012 Urgency incontinence 10/02/2014 Varicose vein of leg 05/28/2012 Mild lt leg Past Surgical History: Past Surgical History: Procedure Laterality Date BX BREAST PERCUT W/O IMAGE Left 05/02/2017 05/02/2017 left breast , ultrasound guided core bx dx intraductal papillomas - [facility] COLONOSCOPY, DIAGNOSTIC (RECTUM) 03/12/2015 COLONOSCOPY FLEXIBLE PROXIMAL DIAGNOSTIC performed by Neel Lynn MD at [facility] COLONOSCOPY, DIAGNOSTIC (RECTUM) 09/28/2017 COLONOSCOPY FLEXIBLE PROXIMAL DIAGNOSTIC performed by Leonela Majano MD at [facility] COLONOSCOPY, DIAGNOSTIC (RECTUM) N/A 10/12/2020 COLONOSCOPY FLEXIBLE PROXIMAL DIAGNOSTIC performed by Nelda Tinoco DO at ENDOSCOPY [facility] DIABETIC EYE EXAM 04/11/11 No diabetic retinopathy - Dr. Joseph. EGD, FLEXIBLE, DIAGNOSTIC 09/20/2011 UPPER GI ENDOSCOPY DIAGNOSTIC performed by YANET VALLES at [facility] EGD, FLEXIBLE, DIAGNOSTIC 03/12/2015 ESOPHAGOGASTRODUODENOSCOPY (EGD), FLEXIBLE, TRANSORAL, DIAGNOSTIC performed by Neel Lynn MD at [facility] EGD, FLEXIBLE, DIAGNOSTIC 09/28/2017 ESOPHAGOGASTRODUODENOSCOPY (EGD), FLEXIBLE, TRANSORAL, DIAGNOSTIC performed by Leonela Majano MD at [facility] EGD, FLEXIBLE, DIAGNOSTIC N/A 10/12/2020 ESOPHAGOGASTRODUODENOSCOPY (EGD), FLEXIBLE, TRANSORAL, DIAGNOSTIC performed by Nelda Tinoco DO at [facility]COPY [facility] EGD, W/ENDOSCOPIC US 10-25-11 fatty liver and pancreas infiltration benign lymph node jaxon hepatis region EXC BREAST LESION RADMARK Left 07/04/2017 EXCISION OF BREAST LESION RADIOLOGICAL MARKER performed by Linnea Cardozo MD at [facility] MISCELLANEOUS ORDER ([facility] ONLY) 1972 ectopic preg --?left at 4mths PARTIAL HYSTERECTOMY 1979 REMOVAL OF RUPTURED APPENDIX age 15 years REPAIR BLADDER & VAGINA, CYSTOCELE 1980 [facility] Subjective: Pt agreeable to therapy. Social History/Disposition Lives with: Spouse (Simultaneous filing. User may not have seen previous data.) (06/11/24 1114) Assistance available: Yes (Simultaneous filing. User may not have seen previous data.) (06/11/24 1114) Dwelling type: Single story home (independent living cottage Simultaneous filing. User may not haveseen previous data.) (06/11/241113) Entry steps: None (Simultaneous filing. User may not have seen previous data.) (06/11/241113) Inside steps: None (Simultaneous filing. User may not have seen previous data.) (06/11/241113) Bedroom location: 1st floor (Simultaneous filing. User may not have seen previous data.) (06/11/241113) Bath location: 1st floor full bath (Simultaneous filing. User may not have seen previous data.) (06/11/241113) Prior Level of Function Reported by: Patient;Chart review (06/11/241113) Ambulation: Ambulatory with device (06/11/241113) Ambulatory Device: Rollator (06/11/241113) Devices at home: Rollator (06/11/241113) Observations Consciousness: Alert (06/11/241113) Orientation: Person;Place;Situation (only oriented to month, not year) (06/11/241113) Psychosocial: Patient can communicate basic needs (06/11/241113) Other Findings: Yes (06/11/241113) Findings: Light touch sensation (06/11/241113) Light Touch Sensation Results: Intact;LLE;RLE (06/11/241113) Sitting Posture: Rounded shoulders;Forward head (06/11/241113) Standing Posture: Forward head;Rounded shoulders (06/11/241113) Pain: No complaints of pain Range of Motion Range of Motion: WFL (06/11/241113) Strength Assessment Strength Assessment: (BLE 4/5) (06/11/241113) P.T. Bed Mobility Supine-Sit: Moderate Assistance (x2) (06/11/241113) Transfers Sit-Stand: Minimal Assistance (x2) (06/11/241113) Stand-Sit: Minimal Assistance (x2) (06/11/241113) W/C-Bed/Mat: Minimal Assistance (x2) (06/11/241113) Ambulation Assist: Minimal Assistance (x2) (06/11/241113) Distance Ambulated (feet): 3 (06/11/241113) Assistive Device: No device (06/11/241113) Balance Sit (Static): (poor to poor+, brief moments of fair-) (06/11/241113) Sit (Dynamic): (poor to poor+) (06/11/241113) Stand (Static): Poor (06/11/241113) Stand (Dynamic): Poor (06/11/241113) Patient and or Family Goal(s): to get well and to return home Patient Education Review of Precautions: Safety;Fall (role of PT) (06/11/241113) Safety Awareness: Patient does not verbalize insight of current deficits;Patient can communicate basic needs (06/11/241113) Preferred learning method: Combination (06/11/241113) Barriers to learning: Cognition (decreased awareness of limitations) (06/11/241113) Method of Education: Verbalized to patient (06/11/241113) Topic of Education: Safety with mobility, Goals/plan of care, and Fall prevention Method of Education: Verbal discussion and explanation provided to patient: verbalized understanding and or agreement of this information Treatment Provided: Evaluation Moderate Complexity 17 minutes - [id number]: Patient was cooperative and pleasant during treatment session. Moderate complexity evaluation performed and 1-2 personal factorsor comorbidities were identified that will impact plan of care, including cognitive status and history of CVA. Patient presents with limitations in strength, bed mobility, transfers, gait, balance, endurance, and safety, which will impact plan of care. These limitations will be addressed by the goals set for this patient. Alarm Status Patient positioned in: Chair (06/11/241113) With: Pressure pad alarm intact and functioning and call villalba in reach (06/11/241113) Following session patient seated OOB in chair with chair alarm activated and cord plugged into callbell system. Treatment Status: Treatment at bedside (06/11/241113) Goals: Demonstrate Bed Mobility with: sit to/from supine and rolling modified independent Demonstrate Transfers with: Sit to/from stand and Bed to/from chair supervision Demonstrate Ambulation: assistive device: least restrictive device; distance in feet: 100ft, supervision Increase Strength of: lower extremities by 1/2 grade Increase Balance: to fair in standing Increase Safety: to prevent falls Time Frame: 10 visits Assessment: Patient is 84 y/o female with dx of intraventricular hemorrhage . Prior to admission, patient lives in an independent living facility with her and was independent with mobility with a rollator. Patient currently requires assist of 2 for bed mobility, transfers, and ambulation of3 ft from bed to recliner. Mobility this date limited by weakness, decreased balance. Ended sessionwith patient resting comfortably in recliner. Patient's overall mobility is limited by decreased LEstrength, decreased balance, decreased endurance, and overall medical status. Patient would benefitfrom continued PT to maximize functional independence. Please consider post-acute care services which may include home health, intermediate, outpatient therapy or inpatient rehabilitation. The level of care will be determined in collaboration with patient, family/caregiver and care team members. Treatment Plan: Bed mobility training, Transfer training, Gait training, Elevation training, Strengthening exercises: lower extremities, Balance activities, and Educate on safety with fall prevention Anticipated Frequency (on eval): 3 to 5 times per week (06/11/241113) Deficits requiring P.T. treatment needs: Safety;Mobility;Balance;Weakness;Endurance;Lower extremitystrength (06/11/241113) Equipment needs: (TBD) (06/11/241113) AM-PAC Score With Stairs : 11 (06/11/241113) A portion of this AM-PAC assessment not scored based on functional assessment due to weakness, decreased safety, rather clinical decision making utilized based on current findings and/or prior level of function. Please refer to future AM-PAC calculations of functional ability as they become available. Reina Brian, PT, DPT, NCS Physical Therapy [facility] * Felicia Adkins OTR/Leeanna - 06/11/2024 11:14 AM EDTAssociated Order(s): ADULT OCCUPATIONAL THERAPY CONSULT IP GENERAL EVALUATION - Occupational Therapy [address] [id number] Name: Alka Lawson Location: [facility] G504/A Date: 06/11/2024 Time: 1113 Alka Lawson is a 84 year old female. Patient Status: Inpatient Insurance: Payor: MEDICARE Plan: MEDICARE A AND B Product Type: *No Product type* Payor: [facility] ([employer]) Plan: [employer] MEDICARE SUPPLEMENT Product Type: *No Product type* Patient Seen: at bedside, nursing cleared patient for therapy Patient Identified By: Name, ID Band and Date Diagnosis: s/p falls with IVH (06/11/24 111) Status of treatment: Evaluation completed (06/11/24 111) Orders: OT evaluation and treatment (06/11/24 111) Weight Bearing Status: Weight bearing as tolerated (06/11/24 111) Precautions: Alarms;Falls;Safety (06/11/24 111) Total Treatment Time: 16 (06/11/24 111) Past Medical History: Past Medical History: Diagnosis [...] eval> >01/31-dc fe ILD (interstitial lung disease) ([facility]) 02/14/2023 Internal hemorrhoids 01/26/2014 Intraventricular hemorrhage ([facility]) 06/11/2024 Mixed incontinence urge and stress (male)(female) 11/16/2010 Nocturnal hypoxia 05/14/201506/02--night ox 01/31 my read-desaturation to 87%.-?pattern osas. >refer-sleep cl eval-viral sleep study>08/12/15--no osas, -fu 09/02---rec O2 defers Obesity, Class III, BMI 40-49.9 (morbid obesity) ([facility]) 05/03/2010 Per Obesity Protocol, #19 ICD-10 update of inactive term Pneumonia due to COVID-19 virus 07/27/2021 Severe obesity with body mass index (BMI) of 35.0 to 35.9 and comorbidity ([facility]) 05/11/2011 Stroke ([facility]) Trochanteric bursitis of right hip 11/27/2012 Urgency incontinence 10/02/2014 Varicose vein of leg 05/28/2012 Mild lt leg Past Surgical History: Past Surgical History: Procedure Laterality Date BX BREAST PERCUT W/O IMAGE Left 05/02/2017 05/02/2017 left breast , ultrasound guided core bx dx intraductal papillomas - [facility] COLONOSCOPY, DIAGNOSTIC (RECTUM) 03/12/2015 COLONOSCOPY FLEXIBLE PROXIMAL DIAGNOSTIC performed by Neel Lynn MD at [facility] COLONOSCOPY, DIAGNOSTIC (RECTUM) 09/28/2017 COLONOSCOPY FLEXIBLE PROXIMAL DIAGNOSTIC performed by Leonela Majano MD at [facility] COLONOSCOPY, DIAGNOSTIC (RECTUM) N/A 10/12/2020 COLONOSCOPY FLEXIBLE PROXIMAL DIAGNOSTIC performed by Nelda Tinoco DO at ENDOSCOPY [facility] DIABETIC EYE EXAM 04/11/11 No diabetic retinopathy - Dr. Joseph. EGD, FLEXIBLE, DIAGNOSTIC 09/20/2011 UPPER GI ENDOSCOPY DIAGNOSTIC performed by YANET VALLES at [facility] EGD, FLEXIBLE, DIAGNOSTIC 03/12/2015 ESOPHAGOGASTRODUODENOSCOPY (EGD), FLEXIBLE, TRANSORAL, DIAGNOSTIC performed by Neel Lynn MD at [facility] EGD, FLEXIBLE, DIAGNOSTIC 09/28/2017 ESOPHAGOGASTRODUODENOSCOPY (EGD), FLEXIBLE, TRANSORAL, DIAGNOSTIC performed by Leonela Majano MD at [facility] EGD, FLEXIBLE, DIAGNOSTIC N/A 10/12/2020 ESOPHAGOGASTRODUODENOSCOPY (EGD), FLEXIBLE, TRANSORAL, DIAGNOSTIC performed by Nelda Tinoco DO at ENDOSCOPY [facility] EGD, W/ENDOSCOPIC US 10-25-11 fatty liver and pancreas infiltration benign lymph node jaxon hepatis region EXC BREAST LESION RADMARK Left 07/04/2017 EXCISION OF BREAST LESION RADIOLOGICAL MARKER performed by Linnea Cardozo MD at OR [facility] MISCELLANEOUS ORDER ([facility] ONLY) 1972 ectopic preg --?left at 4arhs PARTIAL HYSTERECTOMY 1979 REMOVAL OF RUPTURED APPENDIX age 15 years REPAIR BLADDER & VAGINA, CYSTOCELE 1979 [facility] Social History/Disposition Lives with: Spouse (Simultaneous filing. User may not have seen previous data.) (06/11/24 111) Assistance available: Yes (Simultaneous filing. User may not have seen previous data.) (06/11/24 111) Dwelling type: Single story home (independent living cottage Simultaneous filing. User may not haveseen previous data.) (06/11/24 111) Entry steps: None (Simultaneous filing. User may not have seen previous data.) (06/11/24 111) Inside steps: None (Simultaneous filing. User may not have seen previous data.) (06/11/24 111) Bedroom location: 1st floor (Simultaneous filing. User may not have seen previous data.) (06/11/24 111) Bath location: 1st floor full bath (Simultaneous filing. User may not have seen previous data.) (06/11/24 111) Prior Level of Function Reported by: Patient (06/11/24 1114) Ambulation: Ambulatory with device (06/11/24 1114) Ambulatory Device: Rollator (06/11/24 1114) Grooming: Independent (06/11/24 1114) Bathing: Independent (06/11/24 1114) Dressing: Independent (06/11/24 1114) Feeding: Independent (06/11/24 1114) Toileting: Independent (06/11/24 1114) Meal Prep: Assistance (06/11/241113) Homemaking: Independent (06/11/241113) Shopping: Assistance (06/11/241113) Money Management: Assistance (06/11/241113) Driving: No (06/11/241113) Durable Medical Equipment at home: Rollator;Helper Metal Hanging (06/11/241113) Observations Consciousness: Alert (06/11/241113) Orientation: Person;Place;Situation (oriented to month but not year) (06/11/24 111) Cognitive Limitations: Processing (06/11/241113) Psychosocial: Patient can communicate basic needs;Patient can converse in a social setting (06/11/241113) Sitting posture: Forward head;Rounded shoulders;Posterior lean (06/11/241113) Standing posture: Forward head;Rounded shoulders;Posterior lean (06/11/241113) Safety awareness: The Patient verbalizes insight of current deficits.;The Patient demonstrates carryover of insight during functional tasks.;The Patient can communicate basic needs.;Needs cueing supervision. (06/11/241113) Other Findings Endurance: Fair (06/11/241113) Light touch sensation: Intact (06/11/241113) Proprioception: Intact (06/11/241113) Coordination: Intact (06/11/241113) Tone: Normal tone (06/11/241113) Edema: No edema noted (06/11/241113) Current Functional Status: Bilateral Upper Extremity Range of Motion: WFL (06/11/241113) Strength Assessment: (4/5 throughout) (06/11/241113) Self Care Able to provide self care: No (06/11/241113) Grooming: Supervision (Please comment) (simulated combing hair) (06/11/241113) Toileting: Dependent (06/11/241113) Dressing Upper Body: Supervision (Please comment) (robe) (06/11/241113) Lower Body: Dependent (socks) (06/11/241113) Functional Ambulation Assistive Device: No device (06/11/241113) Distance in feet:: 3 (06/11/241113) Level of Assistance: Minimal Assistance (x2) (06/11/241113) Bed Mobility Supine-Sit: Moderate Assistance (x2) (06/11/241113) OT Transfers Sit-Stand: Minimal Assistance (x2) (06/11/241113) Stand-Sit: Minimal Assistance (x2) (06/11/241113) Bed-Chair: Minimal Assistance (x2) (06/11/241113) Balance Sit (Static): Poor (to Poor+) (06/11/241113) Sit (Dynamic): Poor (06/11/241113) Stand (Static): Poor (06/11/241113) Stand (Dynamic): Poor (06/11/241113) Alarm Status Patient positioned in: Chair (06/11/241113) With: Pressure pad alarm intact and functioning and call villalba in reach (06/11/241113) Following session patient seated OOB in chair with chair alarm activated and cord plugged into callbell system. Patient and Family Goals: to return home Patient Education Education Topic: Role of OT;Plan of care goals (06/11/241113) Review of Precautions: Fall;Safety (06/11/241113) Education Provided to: Patient (06/11/241113) Response to Education: Receptive and agreeable to education (06/11/241113) Barriers to learning: Medical status (06/11/241113) Preferred learning method: Combination (06/11/241113) Treatment Provided: Evaluation Moderate Complexity 16 minutes - [id number]: Patient was cooperative, pleasant, motivated, and alert during treatment session. Moderate complexity evaluation performed and 3-5 activity limitations were identified, including ADL deficit, functional mobility deficit, bed mobility deficit, decreased strength, decreased endurance, and impaired balance. Minimal or moderate modification of the functional task was necessary to complete the evaluation. Deficits Requiring O.T. Treatment: Deficits requiring O.T. treatment needs: ADL/self-care;Balance;Endurance;Functional mobility;Upper extremity strength;Safety (06/11/241113) Goals: Increase Strength of: increase 1/2 grade, Demonstrates sitting Balance at: modified independent, Demonstrates standing Balance at: modified independent, Demonstrates self care at: Grooming at Modified Independent , Bathing upper body at Modified Independent , Bathing lower body at Modified In dependent , Upper body dressing at Modified Independent , Lower body dressing at Modified Independent and Toileting at Modified Independent , Demonstrates Activity Tolerance at 40/45 minutes, Demonstrates Bed Mobility with: Supine to Sit: Modified Independent and Sit to Supine: Modified Independent, Demonstrates Transfers with: Sit to Stand: Modified Independent (100% with device/additional time) Stand to Sit: Modified Independent (100% with device/additional time) Bed to Chair/Wheelchair: Modified Independent (100% with device/additional time) Toilet: Modified Independent (100% with device/additional time) , Demonstrates Functional Ambulation: Assistive Device: least restrictive device and Level of Assistance: Modified Independent and Increase safety with transfers, ambulation and self care Goal Time Frame: 10 visits Assessment: Patient is an 84 year old male admitted s/p falls and presents with moderate deficits in all areas of care and mobility due to decreased strength, balance, activity tolerance, safety, pain and overall medical condition. History of a stroke with residual right sided weakness as well as word finding difficulty. Increased time needed to process information. Assistance needed to bring LE towards edge of bed as well as to push up to a sitting position with the trunk. Minor posterior leanand required cues to correct. Setup for UE dressing task and grooming but requires total assist forLE dressing task due to difficulty reaching down past the middle of the malik. Stood with minimal assist x2 and did not utilize a device due to posterior lean but was able to take steps with cues to advance feet. Would benefit from continued oT treatment to maximize level of functional independence.Please consider post-acute care services which may include home health, intermediate, outpatienttherapy or inpatient rehabilitation. The level of care will be determined in collaboration with cornelio ent, family/caregiver and care team members. Treatment Plan: Functional Cognition, Energy Conservation, Safety, Bed mobility training, Functional Ambulation, Transfer training, Upper extremity strengthening, Balance activities: , ADL training ,and Endurance Anticipated Frequency (on eval): 3 to 5 times per week (06/11/241113) AM-PAC Help From Another Person Eating Meals: A little (06/11/241113) Help From Another Person Taking Care of Personal Grooming: A little (06/11/241113) Help From Another Person To Put On/Take Off Upper Body Clothing: A little (06/11/241113) Help From Another Person To Put On/Take Off Lower Body Clothing: Total (06/11/241113) Help From Another Person Toileting: Total (06/11/241113) Help From Another Person Bathing: A lot (06/11/241113) OT AM-PAC Score: 13 (06/11/24 111) OT AM-PAC t-Scale Score: 32.03 (06/11/24 111) HLM (Highest Level of Mobility) Goal: Level 4 move to chair/commode (06/11/241113) A portion of this AM-PAC assessment not scored based on functional assessment ; rather clinical decision making utilized based on current findings and/or prior level of function. Please refer to future AM-PAC calculations of functional ability as they become available. 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 Reversed with Kcentra and vitamin K. 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) 02/16/201101/27--DrMittal-IgG synthesis rate, myelin basic protein, CSF angiotensin converting enzyme, CSF lyme disease DNA PCR and HSV were all within the normal range>>f/u 05/2011--rec fu prn Depression DM type 2 causing renal disease ([facility]) 11/16/2010 DM type 2, goal A1c below [...] eval> >01/31-dc fe ILD (interstitial lung disease) ([facility]) 02/14/2023 Internal hemorrhoids 01/26/2014 Mixed incontinence urge and stress (male)(female) 11/16/2010 Nocturnal hypoxia 05/14/201506/02--night ox 01/31 my read-desaturation to 87%.-?pattern osas. >refer-sleep cl eval-[facility] sleep study>08/12/15--no osas, -fu 09/02---rec O2 defers Obesity, Class III, BMI 40-49.9 (morbid obesity) ([facility]) 05/03/2010 Per Obesity Protocol, #19 ICD-10 update of inactive term Pneumonia due to COVID-19 virus 07/27/2021 Severe obesity with body mass index (BMI) of 35.0 to 35.9 and comorbidity ([facility]) 05/11/2011 Stroke (HCC) Trochanteric bursitis of right hip 11/27/2012 Urgency incontinence 10/02/2014 Varicose vein of leg 05/28/2012 Mild lt leg PAST SURGICAL HISTORY: Past Surgical History: Procedure Laterality Date BX BREAST PERCUT W/O IMAGE Left 05/02/2017 05/02/2017 left breast , ultrasound guided core bx dx intraductal papillomas - [facility] COLONOSCOPY, DIAGNOSTIC (RECTUM) 03/12/2015 COLONOSCOPY FLEXIBLE PROXIMAL DIAGNOSTIC performed by Neel Lynn MD at [facility] COLONOSCOPY, DIAGNOSTIC (RECTUM) 09/28/2017 COLONOSCOPY FLEXIBLE PROXIMAL DIAGNOSTIC performed by Leonela Majano MD at [facility] COLONOSCOPY, DIAGNOSTIC (RECTUM) N/A 10/12/2020 COLONOSCOPY FLEXIBLE PROXIMAL DIAGNOSTIC performed by Nelda Tinoco DO at ENDOSCOPY [facility] DIABETIC EYE EXAM 04/11/11 No diabetic retinopathy - Dr. Joseph. EGD, FLEXIBLE, DIAGNOSTIC 09/20/2011 UPPER GI ENDOSCOPY DIAGNOSTIC performed by YANET VALLES at [facility] EGD, FLEXIBLE, DIAGNOSTIC 03/12/2015 ESOPHAGOGASTRODUODENOSCOPY (EGD), FLEXIBLE, TRANSORAL, DIAGNOSTIC performed by Neel Lynn MD at [facility] EGD, FLEXIBLE, DIAGNOSTIC 09/28/2017 ESOPHAGOGASTRODUODENOSCOPY (EGD), FLEXIBLE, TRANSORAL, DIAGNOSTIC performed by Leonela Majano MD at [facility] EGD, FLEXIBLE, DIAGNOSTIC N/A 10/12/2020 ESOPHAGOGASTRODUODENOSCOPY (EGD), FLEXIBLE, TRANSORAL, DIAGNOSTIC performed by Nelda Tinoco DO at ENDOSCOPY [facility] EGD, W/ENDOSCOPIC US 10-25-11 fatty liver and pancreas infiltration benign lymph node jaxon hepatis region EXC BREAST LESION RADMARK Left 07/04/2017 EXCISION OF BREAST LESION RADIOLOGICAL MARKER performed by Linnea Cardozo MD at OR [facility] MISCELLANEOUS ORDER ([facility] ONLY) 1972 ectopic preg --?left at 4mths PARTIAL HYSTERECTOMY 1979 REMOVAL OF RUPTURED APPENDIX age 15 years REPAIR BLADDER & VAGINA, CYSTOCELE 1980 [facility] SOCIAL HISTORY: Social History Socioeconomic History Marital status: Spouse name: Not on file Number of children: Not on file Years of education: Not on file Highest education level: Not on file Occupational History Not on file Tobacco Use Smoking status: Never Smokeless tobacco: Never Vaping Use Vaping status: Never Used Substance and Sexual Activity Alcohol use: No Drug use: No Sexual activity: Not Currently Other Topics Concern Not on file Social History Narrative That is at home with and son. Feels safe at home. No alcohol or tobacco use. No pets in the home. No mold Social Determinants of Health Financial Resource Strain: Low Risk (06/20/2023) Financial Resource Strain Do you have any trouble paying for your medications, or do you think you might in the future? (Adult - for ages 18 years and over): No Does your family have trouble paying for medicine? (Household - for ages 0-17 years): Not on file Food Insecurity: No Food Insecurity (06/20/2023) Food Insecurity Do you need food for this week? (Adult - for ages 18 years and over): No Are you able to get enough food for your family? (Household - for ages 0-17 years): Not on file Does your family need food this week? (Household - for ages 0-17 years): Not on file Do you always have enough food for your family? (Household - for ages 0-17 years): Not on file Transportation Needs: No Transportation Needs (06/20/2023) Transportation Needs Do you have trouble getting a ride to medical visits or work? (Adult - for ages 18 years and over):Never True Does your family have a hard time getting a ride to doctors visits? (Household - for ages 0-17 years): Not on file Has lack of transportation kept you from medical appointments, meetings, work, or from getting things needed for daily living? Check all that apply. (Adult - for ages 18 years and over): Not on file Do you (or your family) have trouble finding or paying for a ride (transportation)? (Household - for ages 0-17 years): Not on file Social Connections: Socially Integrated (06/20/2023) Social Connections How often do you feel lonely or isolated from those around you? (Adult - for ages 18 years and over): Sometimes Housing Stability: Low Risk (06/20/2023) Housing Stability Do you currently live in a intermediate or have no steady place to sleep at night? (Adult - for ages 18 years and over): No Do you think you are at risk of becoming homeless? (Adult - for ages 18 years and over): No Does your family worry about paying for your home or becoming homeless? (Household - for ages 0-17 years): Not on file Are you homeless or worried that you might be in the future? (Adult - for ages 18 years and over): Not on file Are you (or your family) homeless or worried that you might be in the future? (Household - for ages0-17 years): Not on file Social History Substance and Sexual Activity Drug Use No FAMILY HISTORY: Family History Problem Relation Name Age of Onset Cancer Brother Colon Brain Aneurysm Sister Other (CKD) Daughter Stage III Diabetes Brother Stroke Brother Neurological Disorder Sister MS Dementia Sister No Past Hx Sister Other (ESRD) Other both parents; cause unknown; dad not on HD, M was MEDICATIONS: Current Medications - Prior to This Encounter Medication Sig Last Dose Discont. Sulfamethoxazole-Trimethoprim 800-160 MG Oral Tablet (Bactrim DS) Take 1 Tablet by mouth in the morning and 1 Tablet before bedtime. Do all this for 3 days. Synthroid 125 MCG Oral Tablet TAKE 1 TABLET BY MOUTH ONCE DAILY AT LEAST 30 MINUTES PRIOR TO BREAKFAST OR OTHER MEDICATIONS Warfarin Sodium 2.5 MG Oral Tablet (Coumadin) TAKE 1 TO 2 TABLETS BY MOUTH IN THE EVENING DIRECTED BY ANTICOAGULATION CLINIC Gabapentin 300 MG Oral Capsule (Neurontin) Take 2 Capsules by mouth in the morning and 2 Capsules before bedtime. Omeprazole 40 MG Oral Capsule Delayed Release (PriLOSEC) Take 1 Capsule by mouth at bedtime. hydroCHLOROthiazide 12.5 MG Oral Capsule (Hydrodiuril) Take 1 capsule by mouth once daily Allopurinol 100 MG Oral Tablet (Zyloprim) Take 2 tablets by mouth once daily glipiZIDE ER 10 MG Oral Tablet Extended Release 24 Hour (Glucotrol XL) TAKE 1 TABLET BY MOUTH ONCE DAILY 30 MINUTES BEFORE A MEAL metFORMIN HCl 1000 MG Oral Tablet (Glucophage) TAKE 1 TABLET BY MOUTH TWICE DAILY WITH MEALS OneTouch Ultra In Vitro Strip (Glucose Blood) Use as directed to check blood sugar once a day. Clotrimazole-Betamethasone 1-0.05 % External Cream Apply topically to affected area twice daily. Metoprolol Tartrate 50 MG Oral Tablet (Lopressor) Take 0.5 Tablets by mouth in the morning and 0.5 Tablets before bedtime. Acetaminophen 325 MG Oral Tablet (Tylenol) Take 2 Tablets by mouth every 8 hours as needed for Pain, Moderate. Hydrocortisone 1 % External Cream Apply topically to affected area daily as needed for Hemorrhoids.Apply to hemorhoids Losartan Potassium 25 MG Oral Tablet (Cozaar) Take 1 Tablet by mouth in the morning. Atorvastatin Calcium 80 MG Oral Tablet (Lipitor) Take 1 Tablet by mouth every afternoon. Vitamin D3 25 MCG (1000 UT) Oral Capsule Take 1 Capsule by mouth once. zoster vac recomb adjuvanted (SHINGRIX) 50 MCG/0.5ML injection Inject 0.5 mL into a large muscle now and repeat dose in 60 to 180 days Cyanocobalamin (B-12) 1000 MCG TABS Take 1 Tab by mouth daily. ONETOUCH DELICA LANCETS MISC use as directed up to 4 times per day ALLERGIES: Review of patient's allergies indicates: Allergen Reactions Diphenhydramine Epinephrine Other (Please comment) Inderal [Propranolol Hcl] "TIA" - like reactions Lisinopril Cough Mepivacaine Hcl With epi: whole face sagged Zocor [Simvastatin] Myalgia-nl CK REVIEW OF SYSTEMS: Per HPI PHYSICAL EXAMINATION: Vital signs over last 24 hours: Systolic BP: Most Recent Systolic BP Av.6 mmHg Min: 128 mmHg Max: 155 mmHg Temperature: Most Recent Temperature Av.28 C Min: 36.28 C Max: 36.28 C Pulse: Pulse Avg: Pulse Av.6 Min: 78 Max: 81 Respirations: Resp Av.8 Min: 16 Max: 21 SpO2: SpO2 Av % Min: 98 % Max: 100 % Neurologic Examination GCS 4/4/6 AO x2 not to time PERRL Face symmetric Dysarthria and word finding difficulty/slow speech (baseline from prior stroke) No pronator drift Full strength in all extremities Sensation grossly intact LABS: Chemistry: Lab Results Component Value Date/Time BUN 17 06/10/2024 05:18 PM BUN 14 09/30/2020 03:07 PM CREAT 1.0 06/10/2024 05:18 PM CREAT 0.9 09/30/2020 03:07 PM GFRESTIMATED >60.0 09/30/2020 03:07 PM NA 136 06/10/2024 05:18 PM NA 140 09/30/2020 03:07 PM POTASSIUM 3.2 (L) 06/10/2024 05:18 PM POTASSIUM 3.8 09/30/2020 03:07 PM CO2 25 06/10/2024 05:18 PM CO2 29 09/30/2020 03:07 PM Coagulation studies: Lab Results Component Value Date/Time INR 1.6 (H) 06/10/2024 05:18 PM INR 1.7 05/16/2024 01:34 PM Blood count: Lab Results Component Value Date/Time WBC 11.69 (H) 06/10/2024 05:17 PM WBC 7.61 09/30/2020 03:07 PM WBC 8.5 12/25/1996 03:38 PM HGB 12.5 06/10/2024 05:17 PM HGB 12.8 09/30/2020 03:07 PM HGB 15.2 12/25/1996 03:38 PM HCT 38.5 06/10/2024 05:17 PM HCT 41.1 09/30/2020 03:07 PM HCT 44.3 12/25/1996 03:38 PM PLT 235 06/10/2024 05:17 PM PLT 283 09/30/2020 03:07 PM PLT 295 12/25/1996 03:38 PM IMAGING STUDIES: My Interpretation of Current Images: CTH shows small amount of right IVH in occipital horn Present on admission: There is no height or weight on file to calculate BMI. Patient Active Problem List Diagnosis Acquired hypothyroidism [...] Hemiplegia, post-stroke (HCC) Complete heart block (HCC) IMPRESSION: Alka Lawson is a 84 year old female patient with hx of afib on coumadin and prior L MCA stroke with residual dysarthria and word finding difficulty/slow speech with 2 mechanical falls in past week and small amount of right IVH in occipital horn. RECOMMENDATIONS: Q1 neurochecks Repeat CTH 6h from prior Hold anticoagulation/antiplatelets Keppra for 1w per trauma protocol Eunatremia Repeat INR to ensure reversal of coumadin Mechanical DVT ppx Will follow Will be discussed with attending Dr. Ceasar Banuelos MD Neurosurgery, PGY3 Associated attestation - Walt Mcdonough MD - 06/11/2024 1:36 PM EDT I did not see the patient, but I have reviewed the resident/fellow physician documentation and was readily available on date of service. This is a late entry. I saw the patient on the . I was not physically present but was immediately available at the time the service was rendered on the . Agree with the resident note. Walt Diego Neurosurgery This document was dictated using voice recognition software. Please excuse any errors. documented in this encounter Nursing Notes * Brian Ivory RN - 06/10/2024 10:19 PM EDT Patient TICU Arrival Note Patient arrived to PCU Room 4 at 2202. Report obtained from previous ED RN. Vital signs upon arrival listed below. Patient was safely transferred to TICU bed and promptly assessed for skin breakdown.Bed locked with side rails up in lowest position and bed alarm on. HOB elevated unless otherwise specified by provider via head of bed restrictions. Patients IV's checked for blood return and replaced if needed. Provider made aware of patient arrival to TICU. Will update patients family if present.See flowsheet for arrival time vitals and assessment. See below section for detailed belongings list. Vital signs upon arrival Blood pressure 144/60, pulse 78, temperature 36.5 C (97.7 F), temperature source Tympanic, resp. rate 21, height 1.473 m (4' 10"), weight 79.8 kg (176 lb), SpO2 96%, not currently . Skin Assessment Dual Licensed Skin Assessment completed by Anisa Myers RN and Francis Ivory RN. The patient is/has a N/A Skin Breakdown (includes non blanchable erythema): Yes. Wound Type: Other, location bruise L sacrum, bruise right lateral thigh Wound Ostomy Nurse Notified: No - wound ostomy not needed at this time Nursing interventions: low air loss bed, turn and repositioning, heels elevated, foam dressings, and pillows and/or wedges Patient/caregiver, ED RN, verbalized understanding that a pressure injury is anticipated due to thefollowing risk factors: trauma event, despite pressure injury prevention measures of low air loss bed, turn and repositioning, heels elevated, foam dressings, and pillows and/or wedges being in placeor due to patient's refusal/inability to comply with preventive measures. The areas at risk include but are not limited to the sacrum, bony prominences, heels,. Education was provided about patient's condition and treatment as well as unit standards for turning, repositioning, and skin care. Patient Belonging Retained at Bedside Glasses, Watch, Hearing aid, Walker, and Clothes/shoes Belongings Sent Home with Family No * Cathy Pollock RN - 06/10/2024 8:51 PM EDT Patient presents as a hospital transfer from [facility] for further trauma evaluation after suffering a fall late Sunday night. Patient denies LOC and fell several more times over the last 3 days and soughttreatment at [facility] following repeated falls. Patient was found to have an intracranial hemorrhage, given KCentra and Vit K at [facility], and transferred to [facility]. Patient is alert and oriented to events upon arrival with a GCS of 15. documented in this encounter ED Notes * Jj Ballard MD - 06/10/2024 8:41 PM EDT HISTORY OF PRESENT ILLNESS Alka Lawson is a 84 year old female who presents to the ED for evaluation of Fall and transfer of records. The patient was seen at 06/10/242024. Alka Lawson is an 84 year old female who presented from an OSH as a level 2 trauma alert after a fall. Patient said she fell 2 days ago, and then again yesterday and again today. Each fall occurred in her home. Patient not able to specify the extent to the fall other than one of the falls she fell while in the bathroom and fell over the threshold of the bathtub. Patient also said at one point she was down on the floor for 2 hours. Patient post fall endorsed back and neck pain. She also vomited once the evening prior to coming in to the hospital. Patient takes warfarin. Unknown at the time of presentation whether warfarin is for atrial fibrillation or previous stroke. CT head and brain imaging was concerning for post traumatic hemorrhage. PCC was ordered and administered as well as vitamin K at the outside facility. INR at the OSH was 1.6. Patient was transferrred to [facility] for further evaluation and management. Patient endorsed (+) headstrike (-) LOC. On examination in the trauma bay, pt was AOx4 and GCS 15. No pain, nausea, or SOB. EMS relayed that patient was stable in route with good blood pressures and no AMS. PMHx signifcant for: Acquired hypothyroidism, Dyslipidemia, Type 2 diabetes mellitus, HTN, GERD, Diabetic polyneuropathy, Paroxysmal atrial fibrillation, NSVT, Gout, Ambulatory dysfunction, Hemiplegia, post-stroke. History provided by: EMS The patient's allergies, past history, and medications were reviewed. PHYSICAL EXAM Initial Vitals (see all): BP 155/64 | Pulse 80 | Resp 16 | Temp 97.3 | O2 100 %, Room Air, None | Weight 79.83 kg | Height 147.3 cm | BMI 36.78 kg/m2 Initial Pain Assessment (see all): 0 (no pain)/10 ([facility] Adult Scale 0-10) Head: normocephalic / atraumatic Eyes: pupils 3 mm, bilaterally reactive to light, extraocular muscles intact ENT: tympanic membranes bilaterally clear, oropharynx clear Neck: supple, non-tender, trachea midline Respiratory: clear to auscultation bilaterally Cardiovascular: palpable pulses present, regular rhythm Abdomen: soft, nontender, nondistended Back: no tenderness across thoracic / lumbar spine, old bruising right buttock Pelvis: non-tender, stable to anterior-posterior/lateral compression Rectal: deferred Musculoskeletal: no palpable long bone deformities, motor / sensation grossly intact Skin: grossly intact Neurologic: GCS Adult: eyes open 4 = spontaneous, best verbal response 5 = verbally appropriate forage, best motor response 6 = obeys commands appropriate for age, alert and oriented x3 PROCEDURES AND TREATMENTS ED Orders | ED Results MEDICAL DECISION MAKING Nursing notes and vital signs were reviewed. ED consults were placed. ED Course as of 06/11/242146e Jun 10, [id number] Urinalysis, Reflex to Microscopic Exam(!) Urinalysis concerning for gross infection. Positive nitrites, large esterase. Bacteria present. [IL] 2120 XR Chest 1 View My interpretation of the chest x-ray is no acute traumatic fractures. Loop recorder in place. No blunting of the costophrenic angles. No cardiomegaly. No opacification or consolidation. [IL] ED Course User Index [IL] Valeriano Arana DO Differential Diagnoses Based on my history, physical exam, and evaluation, the differential includes, but is not limited, to the following diagnoses: closed head injury, contusion, fracture and head injury. Trauma Course Narrative: Pt was brought to the resuscitation room by EMS. Full ATLS protocol was initiated under the direction of the ED and Traum attendings. The history was concerning for multi-system trauma. Pt's airway was self maintained and breathing was adequate. Initial circulation assessment was unremarkable. Physi ralph examination performed as noted above. Patient was removed from the spineboard with in-line stabilization technique and patient's back examined. eFAST performed and negative. Additional treatmentsprovided by trauma service (see separate note). Patient's care was transferred to the trauma service for continued management and admission. Consult with neurosurgery, continue fluid resuscitation. Amount and/or Complexity of Data Reviewed Independent Historian: EMS Labs: Decision-making details documented in ED Course. Radiology: ordered and independent interpretation performed. Decision-making details documented in ED Course. Risk Prescription drug management. Decision regarding hospitalization. Clinical Impressions Traumatic intraparenchymal hemorrhage (HCC) Disposition Admitted. I discussed the management of this patient with the admitting provider and I made a decision to admit the patient. Admission Order Ordered Status . 06/10/242118 Admit for Inpatient Services (incl ZPO) ONCE Completed Discharge Medications This print group is not available in inpatient encounters. Please contact a senior linux systems engineer. Jj Ballard was the attending physician who supervised the care of this patient. Valeriano Arana DO Resident Physician - Emergency Medicine [facility] ATTENDING ATTESTATION I have seen and examined this patient on the 06/10/2024 visit. I have discussed the patient's management with the provider listed above and agree with the note, findings, and plan of care. documented in this encounter Miscellaneous Notes * Care Plan - Anisa Myers RN - 06/13/2024 4:13 AM EDT Clinical Goal(s): patient will remain free from falls (06/12/241999) Possible barriers to meeting goal(s)/advancing plan of care: confusion and weakness Stability of the patient: Moderately stable - low risk of patient condition declining or worsening Summary regarding today's goal(s): Met: patient did not fall Recommendations: continue hourly rounds, use bed/chair alarms, and encourage patient to use the call villalba. * Ancillary Progress Note - Cari Elmore MSW - 06/12/2024 11:38 AM EDT CARE MANAGEMENT - TRAUMA DISCHARGE NOTE [facility] [address] Name: Alka Lawson Location: [place] [address]/ Date: 06/12/2024 Time: 11:38 AM The following coordination of care and discharge plan has been coordinated with the care team, patient, family and/or caregiver according to the patients needs and preferences. Discharge Discharge Discharge Transportation: BLS (06/12/24 1100) Date of scheduled discharge transportation: 06/13/24 (06/12/24 1100) Final Discharge Plan (Complete only at time of Discharge): SNF (06/12/24 1100) Destination - Admitted Since 06/10/2024 Service Provider Selected Services Address Phone Fax Patient Preferred Last Updated [facility] [address] [place] [phone] -- Cari Elmore MSW 06/12/2024 1145 Narrative: Pt is agreeable to going to [facility] SNF who also accepted her. She will be dc there tomorrow at 10 am via [facility]. SW left for pt's spouse and spoke to her son Washington and made tem aware of dc. Discharge destination time-out called during BOOST rounds, all parties agreeablewith transition plan of care. * Communication - Narinder Mobley MD - 06/11/2024 6:38 PM EDT Neurosurgery recommends q2h neurochecks today, and transition to q4h neurocheck on 06/12. Narinder Ruelas MD BS General Surgery Resident, PGY-3 [facility] 06/11/2024 * Communication - Osorio Jj PA-C - 06/11/2024 5:[address] [facility] stable this AM. Will sign off at this time. Keppra per protocol. Return to clinic in 2-4 weeksin TBI MDC with CT head without contrast completed prior (ordered). Call with any questions or concerns. Discussed with Dr. Mcdonough * Ancillary Progress Note - Georgia Laboy RDN - 06/11/2024 2:56 PM EDT CLINICAL NUTRITION ADULT RISK ASSESSMENT [address] [address] Name: Alka Lawson Location: [facility] G504/A Date: 06/11/2024 Time: 2:56 PM How patient was identified (select 2): Medical record number and Name Alka Lawson is a 84 year old female being assessed for clinical nutrition risk related to trauma Primary diagnosis: Transferred from [facility] for further evaluation after a fall. Found ot have R occipital intraventricular hemorrhage. PMHx CVA, type 2 DM Other pertinent information: attempted to see pt x2--receiving care. Chat reviewed. Diet was advanced from NPO today at noon. No N/V noted Anthropometrics Measurements Admission weight (for dietitians): 79.8 kg Height: 147.3 cm (4' 10") (06/10/242204) Weight: 79.8 kg (176 lb) (06/10/242204) BMI: 36.79 (06/10/242204) Usual Body Weight or EDW for Dialysis Patients: 81-83 kg over last 9 mos per EHR. Diet: Easy to Chew Previously followed diet: unknown Food Allergies/Intolerances: none known Pertinent medications/vitamins/minerals/supplements: HCTZ, novolog, levoxyl, NSS infusion, prilosec, 2 pkt Phos-Nak given once today RISK FACTORS: Adult Energy Intake: Unable to obtain at present time Interpretation of Weight Change: No recent/significant weight change Skin: Intact NUTRITION RISK CATEGORY: Nutrition Risk Category: Low/Moderate (0-1 factors) Clinical Nutrition Recommendations: Diet: Continue current nutrition plan NUTRITION INTERVENTION/PLAN: Continue current care plan Will follow and adjust nutritional plan as medical condition requires. Please contact for change(s)in patient condition requiring earlier intervention. Georgia Laboy, MS, RD, LDN, FNKF Clinical Dietitian [facility] [address] Extension: [phone] [place] Text * Ancillary Progress Note - Rhea Velazquez RN - 06/11/2024 12:35 PM EDT Injured Trauma Survivor Screen (ITSS) BEFORE THIS INJURY Have you ever taken medication for, or been given a mental health diagnosis? PTSD:N/A DEP: No- 0 Has there ever been a time in your life you have been bothered by feeling down or hopeless or lost all interest in the things you usually enjoyed for more than 2 weeks? PTSD: N/A DEP: No- 0 WHEN YOU WERE INJURED OR RIGHT AFTERWARD 3. Did you think you were going to ? PTSD: No- 0 DEP: No- 0 4. Do you think this was done to you intentionally? PTSD: No- 0, DEP: N/A SINCE YOUR INJURY 5. Have you felt emotionally detached from your loved ones? PTSD: N/A, DEP No- 0 6. Do you find yourself crying and unsure why? PTSD: N/A, DEP No- 0 7. Have you felt more restless, tense or jumpy than usual? PTSD: No- 0, DEP: N/A 8. Have you found yourself unable to stop worrying? PTSD: No- 0, DEP: N/A 9. Do you find yourself thinking that the world is unsafe and that people are not to be trusted? PTSD No- 0 DEP: N/A TOTAL SCORE: PTSD: 0, DEP 0 Score > or = 2 in PTSD category is positive for PTSD risk (place psychology consult for Dr Ferraro indicating + ITSS) Score > or = 2 in DEP category is positive for Depression Risk (check with Dr Ferraro to see if aconsult is needed) Rhea Velazquez RN, BSN, TCRN, CCRN-K Trauma Saw Edge Fuser Circular [facility] 06/11/2024 12:36 PM * Ancillary Progress Note - Rhea Velazquez RN - 06/11/2024 12:34 PM EDT SBIRT NOTE Was screening able to be completed? Yes If unable to be completed, why? n/a S (screening) CAGE-[employer]ID Substance Abuse Screening Tool (Any "yes" answer indicates a positive screen) C Have you ever felt the need to Cut down on your drinking or drug use? No A Have people Annoyed you by criticizing your drinking or drug use? No G Have you ever felt Guilty about drinking or drug use? No E Have you ever felt you needed a drink or used drugs first thing in the morning to steady your nerves or to get rid of a hangover (Eye-Seat Coverer)? No BI (brief intervention) to be done on all patients: I have reviewed both ETOH/ Urine Tox screen with patient and discussed the results as well. After reviewing the results patient admits they they do or do not feel their drinking &/or druguse interferes with their life/goals for the future. Do Not Patient does or does not want to be referred to treatment at this time. Does not RT (referral for treatment) to be done if BI and/or screening +, or any concerns/issues arose whilespeaking with patient (pamphlet for area services given to all pts no matter what): Not referred (reason why no concerns during initial screening nor brief intervention at this time) Rhea Velazquez RN, BSN, TCRN, CCRN-K Trauma Saw Edge Fuser Circular [facility] 06/11/2024 12:34 PM * Ancillary Progress Note - Rhea Velazquez RN - 06/11/2024 12:32 PM EDT NURSING PROGRESS NOTE - Rehabilitation Review - Trauma Surgery [address] [address] Name: Alka Lawson Location: [address] Date: 06/11/2024 Time: 12:32 PM ADULT REHABILITATION REVIEW Chart reviewed according to [place] [employer] guidelines. Case discussed in trauma rounds. Mechanism of Injury: s/p fall at home. Injuries consistant with mechanism. Neurosurgeryconsulted. Occupation: retired. Injury prevention: discussed with patient at bedside. Rehabilitation needs assessed. Rehabilitation Medicine: N/A Trauma Psychology: N/A Alcohol/Chemical Dependency: yes -- SBIRT done Social Work: yes -- T Ramírez SATIN FINISHER following as needed Physical Therapy: yes -- consult placed Speech Pathology: yes -- consult placed Occupational Therapy: yes -- consult placed Anthropology And Archeology Instructor Services: yes -- following as needed Patient resides with her spouse in the independent living at [facility]. Will followfor needs. Rhea Velazquez RN, BSN, TCRN, CCRN-K Trauma Saw Edge Fuser Circular [facility] 06/11/2024 12:34 PM * Ancillary Progress Note - Osorio Griffin Chaplain - 06/11/2024 10:23 AM EDT PROGRESS NOTE - Spiritual Care Contact Information [address] [address] Name: Alka Lawson Location: [facility] G504/A Date: 06/11/2024 Time: 10:24 AM Confucianism: Mosque [49] Caodaism Affiliations: REASON FOR VISIT: request, continuum of care, and follow-up visit REQUEST RECEIVED FROM: staff member - Name: Duty Anthropology And Archeology Instructor VISIT LENGTH: 15 min REQUEST FACTORS (Nature of Situation): Continuum of Care and Follow-up Visit FOCUS OF CARE: Patient and staff SPIRITUAL ASSESSMENT: Amanda or Belief System: Uatsdin Most Important Need(s) / Concern(s): Anxiety, Grief, Helpless, Pain, Sad, Spiritual distress, Suffering, and Weary Sense of Community and/or Caodaism Affiliation: Family Addresses need(s)/concerns(s) and/or abimbola through: Emotional expression, Amanda, Family, God/HigherPower, Hope , Optimism, Peace/Calmness SPIRITUAL CARE PROVIDED: Anthropology And Archeology Instructor addressed needs/concerns and/or coping through: [place], Facilitating debriefing, Facilitating sharing/expression, Listening presence, Prayer, and Supportive dialogue REFERRAL TO: Anthropology And Archeology Instructor OUTCOMES: Affirmation, [place], Emotional Release, Empowerment, Identifying Patient's Strengths/Source of Hope, Identifying Spiritual/Emotional Issues, Peace/Gratitude, Spiritually Connected, Support System Identified ANNOTATION: Pt was a referral by Duty Anthropology And Archeology Instructor for continuum of care. Pt appears overwhelmed, anxious and weary. She was being attended to by hourly sales staff. She shared that she has a and daughters, who are supportive, but were not present at this visit. I offered calming presence, words of comfort, encouragement, prayer and blessings. Pt was grateful for visit. Please follow up as needed. * Ancillary Progress Note - Cari Elmore MSW - 06/11/2024 10:22 AM EDT CARE MANAGEMENT - TRAUMA INITIAL SCREENING [facility] [address] Name: Alka Lawson Location: [facility] G504/A Date: 06/11/2024 Time: 10:22 AM Discussed with Trauma and with the interdisciplinary care team. This Parlor Chaperone performed a chartreview and met with pt at bedside to complete admission screen and assessed needs for transition planning. The landcare officer role and services were explained and emotional support was provided. Chief Complaint: Fall and transfer of records Prior Living Arrangements What was your living situation prior to admission/observation?: With Spouse (06/10/242204) Living Quarters: Apartment (06/11/24999) Number of steps to enter living quarters:: 0 (06/11/24999) How many stories is the dwelling?: One Story (06/11/24999) Prior Level of Functioning Describe the patient's ability prior to admission/observation to perform ADLs: Performs independently (06/10/242204) Describe the patient's mobility status prior to admission: Patient requires assistance with ambulation (06/10/242204) Patient uses assistive device: Yes (06/10/242204) If yes, choose:: Walker (06/10/242204) Caregiver Information Patient Contacts Name Relation Home Work Mobile Renny,Sang W Spouse [phone] RennyWashington Adult Child [phone] Gabbi Velarde Adult Child [phone] Risk Stratification Risk Stratification Psycho Social / Medical Concerns Identified: Adjustment to illness/injury (06/11/24 1000) OBRA or OPTIONS needed for placement: No (06/11/24 1000) Readmission Risk Score: 12.44 (06/11/24 0801) AM-PAC Score With Stairs : 14 (06/11/24 0000) Prior to Admission Services Services Prior to Admission VERSE WRITER Transportation (Services received within the last 30 days): Family/Friends Personal Vehicle (06/11/24 1000) Outpatient Parlor Chaperone: No care steam pan sponger to display Comments: Pt lives at a Independent Living at [facility]. She had a prior stroke and responds slowly and it's best when talking to her to talk slow. She is independent of her ADL's and uses a Rolator, hand grabber, and has grab bars. Her drives and cooks dinner, she cleans the house.Sw spoke to admissions at the snf and if she needs at bed there, they can accept her. If we need totalk to the person who is in charge of the Independent Living, her name is Milly [phone] ext [phone]. SW will continue to follow, address pt's evolving needs, and provide psychosocial support. Patient/Family Expectations: home For further screening information, please refer to the Care Management flow document. * Ancillary Progress Note - Santy Buchanan RRT - 06/11/2024 6:28 AM EDT PATIENT DRIVEN PROTOCOL - Respiratory Care Services [address] [address] Name: Alka Lawson Location: [facility] G504/A Date: 06/11/2024 Time: 6:29 AM Patient Driven Protocol Summary: Initial evaluation performed. This Treatment Plan and medications will be reviewed by the Primary Care Team for any contraindications. Respiratory Care Treatment Plan Pulmonary Volume Expansion Therapy: Incentive Spirometry PRN to prevent or treat alveolar consolidation and atelectasis. . The patient will be re-evaluated: No re-evaluation needed. Indications for treatment met. The Triage Level is: (Assessment Score = 0 - 5) Level 5. Triage Level Definitions: Level 1 Severe Respiratory/Airway Compromise Level 2 Moderate Respiratory/Airway Compromise or high risk for pulmonary complications Level 3 Mild Respiratory/Airway Compromise or moderate risk for pulmonary complications Level 4 Episodic Respiratory/Airway Compromise or low risk for pulmonary complications Level 5 No Respiratory/Airway Compromise Triage 1 Triage 2 Triage 3 Triage 4 Triage 5 greater than 20 16 - 20 11 - 15 6 - 10 0 - 5 Medical Record Assessment Clinical Findings Pulmonary Status: 0 - No History Surgical Status: 0 - No Surgical History Chest X-Ray: 0 - Clear Assessment Score: 0 Patient Assessment Clinical Findings Respiratory Pattern: 0 - RR 12 - 20; Patient only gets breathless with strenuous exercise. Breath Sounds: 0 - Clear to auscultation Cough Effectiveness: 0 - Strong non-productive Sputum Production: 0 - No sputum production Level of Activity: 2 - Temporarily non-ambulatory O2 needed to keep SpO2 greater than or equal to 92%: 0 - Room Air Assessment Score: 2 Total Assessment Score: 2 Breath Sounds: Inspiratory and expiratory clear bilaterally.. Cough and Sputum: An effective cough produced no sputum... CXR: EXAM XR CHEST 1 VIEW : 06/10/2024 8:55 pm HISTORY trauma TECHNIQUE XR CHEST 1 VIEW :PORTABLE SUPINE AP. COMPARISON XR CHEST: 06/10/2024 FINDINGS HEART AND MEDIASTINUM: Stable cardiomediastinal contours. Normal cardiac size. Atheromatous aorta. LUNGS AND PLEURA: Hypoinflation. No evidence of focal consolidation or significant pleural effusion. SOFT TISSUES AND BONES: Degenerative changes. No radiographic evidence of acute displaced fractures. UPPER ABDOMEN: Visualized portions are unremarkable. LINES, TUBES, AND FOREIGN BODIES: REVEAL recorder projects over the left lower chest. IMPRESSION IMPRESSION No radiographically apparent acute traumatic findings.. Vital Signs: Resp: 18 (06/11/24 0300) Pulse: 60 (06/11/240) Temp: 36.4 C (97.6 F) (06/11/24 040) BP: 129/65 (06/11/24299) SpO2: 95 % (06/11/24299) PFT: Minimal Predicted IC: .606 L. Inspiratory capacity: 1.0 L. Primary Service: Critical Care Black. Admitting Diagnosis: Traumatic intraparenchymal hemorrhage (HCC) [S06.30AA] Pulmonary Diagnosis: Hypertension. Prescriptions/Home Medications/Durable Medical Equipment: None . Recommended New home medications/durable medical equipment/outpatient pulmonary/sleep referral None. * Medical Necessity - Evan Doan, Utilization Review Staff - 06/10/2024 10:03 PM EDT AdmissionCare Guideline: Head and Neck Disease, Inpatient Based on the indications selected for the patient, the bed status of Inpatient was determined to beMET The following indications were selected as present at the time of evaluation of the patient: - Clinical Indications for Admission to Inpatient Care - Hospital admission is needed for appropriate care of the patient because of 1 or more of the following: - Severe trauma requiring inpatient medical treatment Additional Information: Traumatic intraparenchymal hemorrhage fall AdmissionCare documentation entered by: Evan Doan [facility] [employer], 28th edition, Copyright 2023 [facility] [employer] [facility] All Rights Reserved. [id number] Solely for purpose of utilization review and payment; not a diagnostic tool * Ancillary Progress Note - Rafita White Chaplain - 06/10/2024 8:40 PM EDT PROGRESS NOTE-Spiritual Care Trauma Alert [facility] [address] Name: Alka Lawson Location: Date: 06/10/2024 Time: 8:50 PM Confucianism: Mosque [49] Caodaism Affiliations: REASON FOR CONTACT: Trauma Alert Response TYPE OF ALERT: Adult Level 2 TIME OF ALERT: 2014 CONTACT LENGTH: 35 MECHANISM OF INJURY/DESCRIPTION OF INCIDENT: Fall TRAUMA STATUS: identified - on arrival Patient Name: Alka Lawson [address]: [address] [place] [id number] Date of : 1940 (84 yrs old) Source of Information:Emergency Contact, EMS, and Hospital Records Confirmed By: Name - Alka Lawson Relationship to Patient - Self EMERGENCY CONTACT INFORMATION: EMERGENCY CONTACT 1: Name: Gabbi Velarde Relationship: Daughter Phone Numbers - Home: XXX Work: XXX Time of Contact: 2054 by phone ADDITIONAL EMERGENCY CONTACT: Name: Sang Lawson Relationship: Spouse Phone Numbers - Home: Cell: XXX Work: XXX Time of Contact: 2054 by phone ANNOTATION: The patient arrived from [facility] by [facility] as a Level 2 Trauma / Fall. The patient was able to confirm her identity and to radha permission to call her emergency contacts. The commercial real estate assistant offered encouraging / comforting dialogue and a prayer at the patient's bedside. The commercial real estate assistant provided [facility] compassionate listening phone call to the patient's daughter, Gabbi Velarde. Gabbi informed the commercial real estate assistant that Sang Lawson (patient's spouse) and her were on their way to the hospital with an ETAafter 2200. The commercial real estate assistant informed the patient and the doctor of the ETA of the patient's family. Continuum of care is needed when the family arrives. REFERRED TO PUMPER HELPER: Duty Anthropology And Archeology Instructor, Date - 06/11/2024, Time - 0800 documented in this encounter Plan of Treatment Upcoming Encounters Date Type Department Care Team (Late st Contact Info) Description 07/02/2024 9:20 AM EDT Office Visit Neurosurgery, [address] [address] [facility] [place] Traumatic Brain Injury [address] [place] [address] 08/28/2024 6:00 PM EDT Office Visit [address] [phone] Jag Kovacs MD [address] [place] [address] 09/11/2024 2:00 PM EDT Office Visit Podiatry, [facility] [address] [place], [place] [phone] Azul Nye DPM [address], [place] [phone] Scheduled Orders Name Type Priority Associated Diagnoses Orde r Schedule XR PELVIS 1 VIEW Medical Imaging STAT One Time for 1 Occurrences starting 06/10/2024 until 06/10/2024 CT HEAD/BRAIN WO CONTRAST Medical Imaging Routine Fall, initial encounter Intraventricular hemorrhage (HCC) Expected: 06/25/2024 (Approximate), Expires: 07/12/2025 Scheduled Procedures Name Priority Associated Diagnoses Date/Ti me COLONOSCOPY FLEXIBLE PROXIMAL DIAGNOSTIC Recall Special screening for malignant neoplasms, colon GERD (gastroesophageal reflux disease) ESOPHAGOGASTRODUODENOSCOPY ( EGD), FLEXIBLE, TRANSORAL, DIAGNOSTIC Recall Special screening for malignant neoplasms, colon GERD (gastroesophageal reflux disease) Scheduled Referrals Name Type Priority Associated Diagnoses Orde r Schedule ADULT NEUROLOGY REFERRAL OP Referral Within 30 days (routine) Hydrocephalus, unspecified type (HCC) Ordered: 06/13/2024 Health Maintenance Due Date Last Done Comments Zoster Vaccines (2 of 3) 04/09/2012 02/13/2012 COVID-19 Vaccine ( season) 2023 Colonoscopy 10/12/2023 10/12/2020, 09/20, 09/28/2017, Additional history exists Albumin/Creatinine Ratio 06/08/2024 023, 11/09/2022, 04/06/2020, Additional history exists TSH 06/08/2024 06/08/2023, 11/20, 12/08/2022, Additional history exists HbA1c 06/12/2024 12/13/2023, 05/20, 12/05/2022, Additional history exists Depression Screening 06/20/2024 06/20/2023 Influenza Vaccine (FLU shot) (#1) 2024 08/03/2023, 09/13/2022, 11/07/2021, Additional history exists Diabetic Foot Exam 02/06/2025 02/07/2024, 0 02/14/2023, 05/04/2022, Additional history exists Diabetic Eye Exam 03/17/2025 03/17/2024, , 03/16/2023, Additional history exists GFR 06/13/2025 06/13/2024, 05/20, 06/11/2024, Additional history exists DXA Scan 06/05/2026 06/05/2019, [...] Comments GLUCOSE METER, POINT OF CARE MACARIO 06/13/2024 8:05 AM EDT BASIC METABOLIC PANEL Routine 06/13/2024 7:14 AM EDT PHOSPHORUS Routine 06/13/2024 7:14 AM EDT CALCIUM, IONIZED Routine 06/13/2024 7:14 AM EDT CBC Routine 06/13/2024 7:14 AM EDT MAGNESIUM Routine 06/13/2024 7:14 AM EDT GLUCOSE METER, POINT OF CARE MAC[place]IO 06/12/2024 9:57 PM EDT GLUCOSE METER, POINT OF CARE [place] 06/12/2024 4:48 PM EDT GLUCOSE METER, POINT OF CARE [place] 06/12/2024 11:38 AM EDT GLUCOSE METER, POINT OF CARE [place]IO 06/12/2024 8:10 AM EDT BASIC METABOLIC PANEL Routine 06/12/2024 5:58 AM EDT PHOSPHORUS Routine 06/12/2024 5:58 AM EDT CALCIUM, IONIZED Routine 06/12/2024 5:58 AM EDT CBC Routine 06/12/2024 5:58 AM EDT MAGNESIUM Routine 06/12/2024 5:58 AM EDT GLUCOSE METER, POINT OF CARE MACARIO 06/11/2024 9:54 PM EDT GLUCOSE METER, POINT OF CARE MACARIO 06/11/2024 5:56 PM EDT GLUCOSE METER, POINT OF CARE MACARIO 06/11/2024 11:43 AM EDT ECHO, COMPLETE (2D), TRANS-THORACIC Routine 06/11/2024 10:33 AM EDT Syncope, unspecified syncope type CTA NECK W CONTRAST STAT 06/11/2024 6 :[address] HEAD/BRAIN WO CONTRAST Routine 06/11/2024 6:13 AM EDT Intraventricular hemorrhage (HCC) Cerebral ischemia White matter disease, unspecified TROPONIN T, HIGH SENSITIVITY Add-on 06/11/2024 4:53 AM EDT BASIC METABOLIC PANEL Routine 06/11/2024 4:53 AM EDT PT INR Routine 06/11/2024 4:53 AM EDT PHOSPHORUS Routine 06/11/2024 4:53 AM EDT LACTATE Routine 06/11/2024 4:53 AM EDT CALCIUM, IONIZED Routine 06/11/2024 4:53 AM EDT CBC Routine 06/11/2024 4:53 AM EDT MAGNESIUM Routine 06/11/2024 4:53 AM EDT GLUCOSE METER, POINT OF CARE MACARIO 06/10/2024 11:58 PM EDT LACTATE Routine 06/10/2024 11:[address] HEAD/BRAIN WO CONTRAST STAT 06/10/2024 11:37 PM EDT Nontraumatic subarachnoid hemorrhage, unspecified (HCC) Cardiomegaly Cerebral atherosclerosis Abnormal findings on diagnostic imaging of skull and head, not elsewhere classified HC ECG TRACING ONLY STAT 06/10/2024 1 1:16 PM EDT Screening for cardiovascular condition CULTURE, URINE, QUANTITATIVE Routine 06/10/2024 10:55 PM EDT GLUCOSE METER, POINT OF CARE MACARIO 06/10/2024 10:33 PM EDT PT INR STAT 06/10/2024 9:09 PM EDT APTT STAT 06/10/2024 9:09 PM EDT BASIC METABOLIC PANEL STAT 06/10/2024 9:08 PM EDT AST STAT 06/10/2024 9:08 PM EDT LACTATE STAT 06/10/2024 9:08 PM EDT ETHANOL, MEDICAL STAT 06/10/2024 9:08 PM EDT CBC Routine 06/10/2024 9:08 PM EDT LAB VALIDATION EXTRA EDTA STAT 06/10/2024 9:07 PM EDT TOXICOLOGY, URINESCREEN W/ CONFIRMATION STAT 06/10/2024 9:02 PM EDT CULTURE, URINE, QUANTITATIVE STAT 06/10/2024 9:02 PM EDT URINALYSIS, REFLEX TO MICROSCOPIC STAT 06/10/2024 9:02 PM EDT XR CHEST 1 VIEW STAT 06/10/2024 8:55 PM EDT documented in this encounter Results * (ABNORMAL) GLUCOSE METER, POINT OF CARE (06/13/2024 8:05 AM EDT) Glucose Meter 180(H) 70 - 120 mg/dL 06/13/2024 8:12 AM EDT [facility] Blood Whole blood specimen / Unknown 06/13/2024 8:05 AM EDT 06/13/2024 8:12 AM EDT Srinivas Ortez DO LAB POINT OF CARE TE ST DOCKED DEVICE UNSOLICITED RESULTS [facility] [employer] [facility] [address] [place] [address] * PHOSPHORUS (06/13/2024 7:14 AM EDT) Phosphorus 2.7 2.5 - 4.8 mg/dL 06/13/2024 7:50 AM EDT LABORATORY [facility] Blood Venous blood specimen / Unknown Venipuncture / Unknown 06/13/2024 7:14 AM EDT 06/13/2024 7:24 AM EDT Abdulaziz Alejandre MD LAB BLOOD ORDERABLES Performing Organization Address [facility] Co de Phone Number LABORATORY [address] [address] * MAGNESIUM (06/13/2024 7:14 AM EDT) Magnesium 1.7 1.5 - 2.6 mg/dL 06/13/2024 7:50 AM EDT LABORATORY [facility] Blood Venous blood specimen / Unknown Venipuncture / Unknown 06/13/2024 7:14 AM EDT 06/13/2024 7:24 AM EDT Abdulaziz Alejandre MD LAB BLOOD ORDERABLES Performing Organization Address [facility] de Phone Number LABORATORY [place] [address] [place] [address] * CALCIUM, IONIZED (06/13/2024 7:14 AM EDT) Calcium, Ionized 1.29 1.13 - 1.32 mmol/L 06/13/2024 7:37 AM EDT LABORATORY [facility] Comment:This test was develo ped and its performance characteristics dtermined by [employer]. It has not been cleared or approved by the [place] Food and Drug Administration Blood Venous blood specimen / Unknown Venipuncture / Unknown 06/13/2024 7:14 AM EDT 06/13/2024 7:19 AM EDT Abdulaziz Alejandre MD LAB BLOOD ORDERABLES LABORATORY [facility] [address] [place] [address] * (ABNORMAL) BASIC METABOLIC PANEL (06/13/2024 7:14 AM EDT) BUN 9 6 - 20 mg/dL 06/13/2024 7:50 AM EDT LABORATORY [facility] Creatinine 0.9 0.5 - 1.0 mg/dL 06/13/2024 7:50 AM EDT LABORATORY [facility] Estimated Glomerular Filtration Rate 67 >=60 mL/min 06/13/2024 7:50 AM EDT LABORATORY [facility] Comment:eGFR is calculated b ased on the CKD-EPI 2020 equation. Sodium 138 135 - 146 mmol/L 06/13/2024 7:50 AM EDT LAB[facility]ATORY [facility] Potassium 4.0 3.5 - 5.1 mmol/L 06/13/2024 7:50 AM EDT LAB[facility]ATORY [facility] Chloride 103 98 - 107 mmol/L 06/13/2024 7:50 AM EDT LAB[facility]ATORY [facility] CO2 24 22 - 32 mmol/L 06/13/2024 7:50 AM EDT LAB[facility]ATORY [facility] Anion Gap 11 7 - 15 mmol/L 06/13/2024 7:50 AM EDT LABORATORY [facility] Glucose 180(H) 70 - 120 mg/dL 06/13/2024 7:50 AM EDT LAB[facility]ATORY [facility] Calcium 9.5 8.4 - 10.2 mg/dL 06/13/2024 7:50 AM EDT LABORATORY [facility] Blood Venous blood specimen / Unknown Venipuncture / Unknown 06/13/2024 7:14 AM EDT 06/13/2024 7:24 AM EDT Abdulaziz Alejandre MD LAB BLOOD ORDERABLES LABORATORY [facility] [address] [place] [address] * CBC (06/13/2024 7:14 AM EDT) WBC 7.71 4.00 - 10.80 K/uL 06/13/2024 7:34 AM EDT LABORATORY [facility] RBC 4.66 3.85 - 5.15 M/uL 06/13/2024 7:34 AM EDT LAB[facility]ATORY [facility] HGB 13.4 12.0 - 15.3 g/dL 06/13/2024 7:34 AM EDT LAB[facility]ATORY [facility] HCT 41.4 36.0 - 45.2 % 06/13/2024 7:34 AM EDT LAB[facility]ATORY [facility] MCV 88.8 81.5 - 97.5 fL 06/13/2024 7:34 AM EDT LABORATORY [facility] MCH 28.8 27.0 - 34.0 pg 06/13/2024 7:34 AM EDT LAB[facility]ATORY [facility] MCHC 32.4 32.0 - 36.0 g/dL 06/13/2024 7:34 AM EDT LAB[facility]ATORY [facility] RDW 17.6 11.5 - 15.5 % 06/13/2024 7:34 AM EDT LAB[facility]ATORY [facility] PLT 245 140 - 400 K/uL 06/13/2024 7:34 AM EDT LABORATORY GM MPV 10.5 6.6 - 11.1 fL 06/13/2024 7:34 AM EDT LAB[facility]ATORY [facility] nRBCs 0 <=0 /100 WBCs 06/13/2024 7:34 AM EDT LABORATORY [facility] Blood Venous blood specimen / Unknown Venipuncture / Unknown 06/13/2024 7:14 AM EDT 06/13/2024 7:24 AM EDT Abdulaziz Alejandre MD LAB BLOOD ORDERABLES Performing Organization Address City/State/[facility] Co de Phone Number LABORATORY [facility] [address] [place] [address] * (ABNORMAL) GLUCOSE METER, POINT OF CARE (06/12/2024 9:57 PM EDT) [facility] Glucose Meter 244(H) 70 - 120 mg/dL 06/12/2024 10:11 PM EDT [place] Blood Whole blood specimen / Unknown 06/12/2024 9:57 PM EDT 06/12/2024 10:11 PM EDT Srinivas Ortez DO LAB POINT OF CARE TE ST DOCKED DEVICE UNSOLICITED RESULTS Performing Organization Address City/[facility]/ZIP Co de Phone Number [facility] [address] [place] [address] * (ABNORMAL) GLUCOSE METER, POINT OF CARE (06/12/2024 4:48 PM EDT) Glucose Meter 162(H) 70 - 120 mg/dL 06/12/2024 4:51 PM EDT [place] Blood Whole blood specimen / Unknown 06/12/2024 4:48 PM EDT 06/12/2024 4:51 PM EDT Srinivas Ortez DO LAB POINT OF CARE TE ST DOCKED DEVICE UNSOLICITED RESULTS Performing Organization Address [facility]/ZIP Co de Phone Number [facility] [address] [place] [address] * (ABNORMAL) GLUCOSE METER, POINT OF CARE (06/12/2024 11:38 AM EDT) Glucose Meter 247(H) 70 - 120 mg/dL 06/12/2024 12:22 PM EDT [place] Blood Whole blood specimen / Unknown 06/12/2024 11:38 AM EDT 06/12/2024 12:22 PM EDT Srinivas Ortez DO LAB POINT OF CARE TE ST DOCKED DEVICE UNSOLICITED RESULTS Performing Organization Address City/[facility]/ZIP Co de Phone Number [facility] [address] [place] [address] * (ABNORMAL) GLUCOSE METER, POINT OF CARE (06/12/2024 8:10 AM EDT) Glucose Meter 156(H) 70 - 120 mg/dL 06/12/2024 8:17 AM EDT [place] Blood Whole blood specimen / Unknown 06/12/2024 8:10 AM EDT 06/12/2024 8:16 AM EDT Srinivas Ortez DO LAB POINT OF CARE TE ST DOCKED DEVICE UNSOLICITED RESULTS Performing Organization Address City/[facility]/ZIP Co de Phone Number [facility] [address] [place] [address] * (ABNORMAL) PHOSPHORUS (06/12/2024 5:58 AM EDT) Phosphorus 2.4(L) 2.5 - 4.8 mg/dL 06/12/2024 6:34 AM EDT LABORATORY [facility] Blood Venous blood specimen / Unknown Venipuncture / Unknown 06/12/2024 5:58 AM EDT 06/12/2024 6:11 AM EDT Abdulaziz Alejandre MD LAB BLOOD ORDERABLES Performing Organization Address City/[facility] Co de Phone Number LABORATORY [facility] [address] [place] [address] * MAGNESIUM (06/12/2024 5:58 AM EDT) Pathologist [facility] Magnesium 1.8 1.5 - 2.6 mg/dL 06/12/2024 6:34 AM EDT LABORATORY [facility] Blood Venous blood specimen / Unknown Venipuncture / Unknown 06/12/2024 5:58 AM EDT 06/12/2024 6:11 AM EDT Abdulaziz Alejandre MD LAB BLOOD ORDERABLES Performing Organization Address [facility] Co de Phone Number LABORATORY [place] [address] [place] [address] * CALCIUM, IONIZED (06/12/2024 5:58 AM EDT) Calcium, Ionized 1.27 1.13 - 1.32 mmol/L 06/12/2024 6:31 AM EDT LABORATORY [facility] Comment:This test was develo ped and its performance characteristics dtermined by [employer]. It has not been cleared or approved by the [place] Food and Drug Administration Blood Venous blood specimen / Unknown Venipuncture / Unknown 06/12/2024 5:58 AM EDT 06/12/2024 6:11 AM EDT Abdulaziz Alejandre MD LAB BLOOD ORDERABLES LAB[facility]ATORY [facility] [address] [place] [address] * (ABNORMAL) BASIC METABOLIC PANEL (06/12/2024 5:58 AM EDT) BUN 9 6 - 20 mg/dL 06/12/2024 6:34 AM EDT LABORATORY [facility] Creatinine 0.8 0.5 - 1.0 mg/dL 06/12/2024 6:34 AM EDT LAB[facility]ATORY [facility] Estimated Glomerular Filtration Rate 76 >=60 mL/min 06/12/2024 6:34 AM EDT LABORATORY [facility] Comment:eGFR is calculated b ased on the CKD-EPI 2020 equation. Sodium 139 135 - 146 mmol/L 06/12/2024 6:34 AM EDT LABORATORY [facility] Potassium 3.1(L) 3.5 - 5.1 mmol/L 06/12/2024 6:34 AM EDT LAB[facility]ATORY [facility] Chloride 102 98 - 107 mmol/L 06/12/2024 6:34 AM EDT LAB[facility]ATORY [facility] CO2 26 22 - 32 mmol/L 06/12/2024 6:34 AM EDT LAB[facility]ATORY [facility] Anion Gap 11 7 - 15 mmol/L 06/12/2024 6:34 AM EDT LAB[facility]ATORY [facility] Glucose 128(H) 70 - 120 mg/dL 06/12/2024 6:34 AM EDT LAB[facility]ATORY [facility] Calcium 9.3 8.4 - 10.2 mg/dL 06/12/2024 6:34 AM EDT LABORATORY [facility] Blood Venous blood specimen / Unknown Venipuncture / Unknown 06/12/2024 5:58 AM EDT 06/12/2024 6:11 AM EDT Abdulaziz Alejandre MD LAB BLOOD ORDERABLES LAB[facility]ATORY [facility] [address] [place] [address] * CBC (06/12/2024 5:58 AM EDT) WBC 9.24 4.00 - 10.80 K/uL 06/12/2024 6:22 AM EDT LABORATORY [facility] RBC 4.22 3.85 - 5.15 M/uL 06/12/2024 6:22 AM EDT LABORATORY [facility] HGB 12.0 12.0 - 15.3 g/dL 06/12/2024 6:22 AM EDT LABORATORY [facility] HCT 37.0 36.0 - 45.2 % 06/12/2024 6:22 AM EDT LABORATORY GM MCV 87.7 81.5 - 97.5 fL 06/12/2024 6:22 AM EDT LABORATORY [facility] MCH 28.4 27.0 - 34.0 pg 06/12/2024 6:22 AM EDT LABORATORY [facility] MCHC 32.4 32.0 - 36.0 g/dL 06/12/2024 6:22 AM EDT LABORATORY [facility] RDW 17.2 11.5 - 15.5 % 06/12/2024 6:22 AM EDT LABORATORY [facility] PLT 226 140 - 400 K/uL 06/12/2024 6:22 AM EDT LABORATORY [facility] MPV 10.3 6.6 - 11.1 fL 06/12/2024 6:22 AM EDT LABORATORY [facility] nRBCs 0 <=0 /100 WBCs 06/12/2024 6:22 AM EDT LABORATORY [facility] Blood Venous blood specimen / Unknown Venipuncture / Unknown 06/12/2024 5:58 AM EDT 06/12/2024 6:11 AM EDT Abdulaziz Alejandre MD LAB BLOOD ORDERABLES Performing Organization Address City/State/[facility] Co de Phone Number LABORATORY [facility] [address] [place] [address] * (ABNORMAL) GLUCOSE METER, POINT OF CARE (06/11/2024 9:54 PM EDT) [facility] Glucose Meter 195(H) 70 - 120 mg/dL 06/11/2024 10:10 PM EDT [employer] [facility] [employer] Blood Whole blood specimen / Unknown 06/11/2024 9:54 PM EDT 06/11/2024 10:10 PM EDT Srinivas Ortez DO LAB POINT OF CARE TE ST DOCKED DEVICE UNSOLICITED RESULTS Performing Organization Address [facility] Co de Phone Number [facility] [address] [place] [address] * (ABNORMAL) GLUCOSE METER, POINT OF CARE (06/11/2024 5:56 PM EDT) Glucose Meter 135(H) 70 - 120 mg/dL 06/11/2024 5:59 PM EDT [facility] Blood Whole blood specimen / Unknown 06/11/2024 5:56 PM EDT 06/11/2024 5:59 PM EDT Srinivas Ortez DO LAB POINT OF CARE TE ST DOCKED DEVICE UNSOLICITED RESULTS Performing Organization Address [facility] Co de Phone Number [facility] [address] [place] [address] * GLUCOSE METER, POINT OF CARE (06/11/2024 11:43 AM EDT) Glucose Meter 110 70 - 120 mg/dL 06/11/2024 11:49 AM EDT [place] Blood Whole blood specimen / Unknown 06/11/2024 11:43 AM EDT 06/11/2024 11:49 AM EDT Srinivas Ortez DO LAB POINT OF CARE TE ST DOCKED DEVICE UNSOLICITED RESULTS Performing Organization Address [facility] Co de Phone Number [facility] [address] [place] [address] * ECHO, COMPLETE (2D), TRANS-THORACIC (06/11/2024 10:33 AM EDT) LEFT VENTRICULAR EJECTION FRACTION 55 % [facility] 06/11/2024 9:52 AM EDT Mariza Brothers MD ECHOCARDIOLOGY Performing Organization Address City/[facility]/ZIP Co de Phone Number [facility] * CT HEAD/BRAIN WO CONTRAST (06/11/2024 6:13 AM EDT) Anatomical Region Laterality Modality Head Computed Tomogra phy 06/11/2024 8:58 AM EDT Narrative 06/11/2024 8:55 AM EDT EXAM: CT HEAD/BRAIN WO CONTRAST HISTORY: F/u TBI COMPARISON: Head CT 06/10/2024 at 2331 hours. TECHNIQUE: Helical acquisition of CT raw data through the brain without intravenous contrast and reconstructed in axial, coronal, and sagittal planes FINDINGS: Redemonstration of the hemorrhage suspended from the choroid plexus in the right lateral ventricle atrium. Similar volume layering intraventricular hemorrhage. There is severe enlargement of the lateral ventricles and 3rd ventricle. The callosum angle is approximately 53 degrees. The Langley index is 0.37. There is marked narrowing of vertex and parafalcine sulci, disc proportional widening of the sylvian fissures, and transport sulci over both convexities. 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 There is patchy/confluent hypodensity in the white matter, with caps of hypodensity in the occipital and frontal horns. Chronic left rolandic infarct. No midline shift or herniation. Bilateral artificial intra-ocular lenses. Calcification along the left superior globe retina/choroid. Mastoid air cells and middle ears are clear. Paranasal sinuses are clear. Intracranial arterial vascular calcifications. IMPRESSION: 1. Unchanged size of the hemorrhage [...] matter disease and chronic left rolandic infarct. Procedure Note Cortez ZABALA, Anibal Gardner MD - 06/11/2024 EXAM: CT HEAD/BRAIN WO CONTRAST HISTORY: F/u TBI COMPARISON: Head CT 06/10/2024 at 2331 hours. TECHNIQUE: Helical acquisition of CT raw data through the brain without intravenouscontrast and reconstructed in axial, coronal, and sagittal planes FINDINGS: Redemonstration of the hemorrhage suspended from the choroid plexus in theright lateral ventricle atrium. Similar volume layering intraventricularhemorrhage. There is severe enlargement of the lateral ventricles and 3rd ventricle.The callosum angle is approximately 53 degrees. The Langley index is 0.37.There is marked narrowing of vertex and parafalcine sulci, discproportional widening of the sylvian fissures, and transport sulci overboth convexities. The findings are seen with normal pressurehydrocephalus. There is patchy/confluent hypodensity in the white matter, with caps ofhypodensity in the occipital and frontal horns. Chronic left rolandic infarct. No midline shift or herniation. Bilateral artificial intra-ocular lenses. Calcification along the left superior globe retina/choroid. Mastoid aircells and middle ears are clear. Paranasal sinuses are clear.Intracranial arterial vascular calcifications. IMPRESSION: 1. Unchanged size of the hemorrhage suspended from the right choroidplexus in the atrium of the right lateral ventricle and unchanged volumeof intraventricular hemorrhage. No evidence of new hemorrhage. 2. Morphologic findings which would support a diagnosis of normal pressurehydrocephalus although can precede the clinical syndrome. Pleasecorrelate clinically. 3. Moderate to severe chronic white matter disease and chronic leftrolandic infarct. Merrill Vickers PA-C RAD CT * CTA NECK (06/11/2024 6:13 AM EDT) Anatomical Region Laterality Modality Neck, Head, Cspine, Spine Comput ed Tomography 06/11/2024 9:28 AM EDT Impressions 06/11/2024 9:26 AM EDT IMPRESSION CTA neck: 1. No evidence of traumatic cervical arterial injury. 2. No flow-limiting stenosis or large vessel occlusion. Narrative 06/11/2024 9:26 AM EDT EXAM CTA NECK-06/11/2024 6:13 am HISTORY Fall, trauma work up COMPARISON CTA head neck 11/29/2022 TECHNIQUE Helical acquisition of CT angiographic raw data through the neck following the administration of intravenous contrast and reconstructed in axial, coronal, and sagittal planes with multiplanar maximum intensity projection images and 3D volume rendered reconstructions FINDINGS CTA neck: Standard 3 branch vessel aortic arch anatomy. The innominate and subclavian arteries are patent. The common carotid and cervical internal carotid arteries are patent without flow-limiting stenosis by NASCET criteria, noting mild, less than 50% narrowing of the right carotid bifurcation due to calcified plaque. No evidence of carotid arterial injury. The cervical vertebral arteries are patent and codominant without stenosis or evidence of injury. Intracranial arterial structures are unremarkable. 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 Cervical soft tissue structures are unremarkable. Patchy atelectasis in the lungs. The left pulmonary artery is significantly dilated, with the right pulmonary artery off the field of view. Multilevel spinal degenerative changes. CT cervical spine dictated separately. Procedure Note Anibal Toro IV, MD - 06/11/2024 EXAM CTA NECK-06/11/2024 6:13 am HISTORY Fall, trauma work up COMPARISON CTA head neck 11/29/2022 TECHNIQUE Helical acquisition of CT angiographic raw data through the neck followingthe administration of intravenous contrast and reconstructed in axial,coronal, and sagittal planes with multiplanar maximum intensity projectionimages and 3D volume rendered reconstructions FINDINGS CTA neck: Standard 3 branch vessel aortic arch anatomy. The innominate and subclavian arteries are patent. The common carotid and cervical internal carotid arteries are patentwithout flow-limiting stenosis by NASCET criteria, noting mild, less than50% narrowing of the right carotid bifurcation due to calcified plaque.No evidence of carotid arterial injury. The cervical vertebral arteries are patent and codominant without stenosisor evidence of injury. Intracranial arterial structures are unremarkable. An incidental calcified right posterior petrous meningioma isredemonstrated. Cervical soft tissue structures are unremarkable. Patchy atelectasis inthe lungs. The left pulmonary artery is significantly dilated, with theright pulmonary artery off the field of view. Multilevel spinaldegenerative changes. CT cervical spine dictated separately. IMPRESSION IMPRESSION CTA neck: 1. No evidence of traumatic cervical arterial injury. 2. No flow-limiting stenosis or large vessel occlusion. Merrill Vickers PA-C RAD CT * (ABNORMAL) TROPONIN T, HIGH SENSITIVITY (06/11/2024 4:53 AM EDT) Troponin T, High Sensitivity 19(H) <=14 ng/L 06/11/2024 9:51 AM EDT LABORATORY [facility] Blood Venous blood specimen / Unknown Venipuncture / Unknown 06/11/2024 4:53 AM EDT 06/11/2024 5:04 AM EDT Mariza Brothers MD LAB BLOOD ORDERA BLES Performing Organization Address [facility]/ZIP Co de Phone Number LABORATORY [facility] [address] [place] [address] * LACTATE (06/11/2024 4:53 AM EDT) Lactate 1.2 0.4 - 2.0 mmol/L 06/11/2024 5:42 AM EDT [facility] Blood Venous blood specimen / Unknown Venipuncture / Unknown 06/11/2024 4:53 AM EDT 06/11/2024 5:04 AM EDT Abdulaziz Alejandre MD LAB BLOOD ORDERABLES Performing Organization Address [facility] Co de Phone Number LABORATORY [facility] [address] [place] [address] * (ABNORMAL) PHOSPHORUS (06/11/2024 4:53 AM EDT) Phosphorus 2.4(L) 2.5 - 4.8 mg/dL 06/11/2024 5:43 AM EDT [facility] Blood Venous blood specimen / Unknown Venipuncture / Unknown 06/11/2024 4:53 AM EDT 06/11/2024 5:04 AM EDT Abdulaziz Alejandre MD LAB BLOOD ORDERABLES Performing Organization Address [facility] Co de Phone Number LABORATORY [facility] [address] [place] [address] * (ABNORMAL) MAGNESIUM (06/11/2024 4:53 AM EDT) Magnesium 1.4(L) 1.5 - 2.6 mg/dL 06/11/2024 5:43 AM EDT [facility] Blood Venous blood specimen / Unknown Venipuncture / Unknown 06/11/2024 4:53 AM EDT 06/11/2024 5:04 AM EDT Abdulaziz Alejandre MD LAB BLOOD ORDERABLES Performing Organization Address [facility]/ZIP Co de Phone Number LABORATORY [facility] [address] [place] [address] * CALCIUM, IONIZED (06/11/2024 4:53 AM EDT) Calcium, Ionized 1.14 1.13 - 1.32 mmol/L 06/11/2024 5:31 AM EDT [facility] Comment:This test was develo ped and its performance characteristics dtermined by [employer]. It has not been cleared or approved by the [place] Food and Drug Administration Blood Venous blood specimen / Unknown Venipuncture / Unknown 06/11/2024 4:53 AM EDT 06/11/2024 5:04 AM EDT Abdulaziz Alejandre MD LAB BLOOD ORDERABLES Performing Organization Address [facility] Co de Phone Number LABORATORY [facility] [address] [place] [address] * (ABNORMAL) BASIC METABOLIC PANEL (06/11/2024 4:53 AM EDT) BUN 10 6 - 20 mg/dL 06/11/2024 5:43 AM EDT [facility] Creatinine 0.8 0.5 - 1.0 mg/dL 06/11/2024 5:43 AM EDT LABORATORY [facility] Estimated Glomerular Filtration Rate 79 >=60 mL/min 06/11/2024 5:43 AM EDT [facility] Comment:eGFR is calculated b ased on the CKD-EPI 2020 equation. Sodium 136 135 - 146 mmol/L 06/11/2024 5:43 AM EDT [facility] Potassium 3.7 3.5 - 5.1 mmol/L 06/11/2024 5:43 AM EDT [facility] Chloride 103 98 - 107 mmol/L 06/11/2024 5:43 AM EDT [facility] CO2 21(L) 22 - 32 mmol/L 06/11/2024 5:43 AM EDT [facility] Anion Gap 12 7 - 15 mmol/L 06/11/2024 5:43 AM EDT [facility] Glucose 119 70 - 120 mg/dL 06/11/2024 5:43 AM EDT [facility] Calcium 8.5 8.4 - 10.2 mg/dL 06/11/2024 5:43 AM EDT [facility] Blood Venous blood specimen / Unknown Venipuncture / Unknown 06/11/2024 4:53 AM EDT 06/11/2024 5:04 AM EDT Abdulaziz Alejandre MD LAB BLOOD ORDERABLES Performing Organization Address City/State/[facility] Co de Phone Number [facility] [address] [place] [address] * (ABNORMAL) CBC (06/11/2024 4:53 AM EDT) WBC 10.38 4.00 - 10.80 K/uL 06/11/2024 5:31 AM EDT [facility] RBC 4.08 3.85 - 5.15 M/uL 06/11/2024 5:31 AM EDT [facility] HGB 11.6(L) 12.0 - 15.3 g/dL 06/11/2024 5:31 AM EDT [facility] HCT 36.3 36.0 - 45.2 % 06/11/2024 5:31 AM EDT [facility] MCV 89.0 81.5 - 97.5 fL 06/11/2024 5:31 AM EDT [facility] MCH 28.4 27.0 - 34.0 pg 06/11/2024 5:31 AM EDT [facility] MCHC 32.0 32.0 - 36.0 g/dL 06/11/2024 5:31 AM EDT [facility] RDW 17.1 11.5 - 15.5 % 06/11/2024 5:31 AM EDT [facility] PLT 226 140 - 400 K/uL 06/11/2024 5:31 AM EDT [facility] MPV 10.9 6.6 - 11.1 fL 06/11/2024 5:31 AM EDT [facility] nRBCs 0 <=0 /100 WBCs 06/11/2024 5:31 AM EDT [facility] Blood Venous blood specimen / Unknown Venipuncture / Unknown 06/11/2024 4:53 AM EDT 06/11/2024 5:04 AM EDT Abdulaziz Alejandre MD LAB BLOOD ORDERABLES LABORATORY [facility] [address] [place] [address] * PT INR (06/11/2024 4:53 AM EDT) Prothrombin Time 14.9 11.6 - 15.2 seconds 06/11/2024 5:37 AM EDT LABORATORY [facility] INR 1.2 0.8 - 1.2 06/11/2024 5:37 AM EDT LAB[facility]ATORY [facility] Blood Venous blood specimen / Unknown Venipuncture / Unknown 06/11/2024 4:53 AM EDT 06/11/2024 5:04 AM EDT Narrative [facility] - 06/11/2024 5:37 AM EDT Warfarin Therapy INR: 2.0-3.0 conventional anticoagulation INR: 2.5-3.5 high intensity anticoagulation Abdulaziz Alejandre MD LAB BLOOD ORDERABLES Performing Organization Address [facility] Co de Phone Number LABORATORY [facility] [address] [place] [address] * GLUCOSE METER, POINT OF CARE (06/10/2024 11:58 PM EDT) Pathologist [facility] Glucose Meter 97 70 - 120 mg/dL 06/11/2024 12:06 AM EDT [facility] [employer] Blood Whole blood specimen / Unknown 06/10/2024 11:58 PM EDT 06/11/2024 12:06 AM EDT Srinivas Ortez DO LAB POINT OF CARE TE ST DOCKED DEVICE UNSOLICITED RESULTS Performing Organization Address City/[facility]/ZIP Co de Phone Number [facility] [address] [place] [address] * (ABNORMAL) LACTATE (06/10/2024 11:53 PM EDT) Lactate 2.9(H) 0.4 - 2.0 mmol/L 06/11/2024 12:37 AM EDT LABORATORY [facility] Blood Venous blood specimen / Unknown Venipuncture / Unknown 06/10/2024 11:53 PM EDT 06/11/2024 12:08 AM EDT Abdulaziz Alejandre MD LAB BLOOD ORDERABLES LABORATORY [facility] [address] [place] [address] * CT HEAD/BRAIN WO CONTRAST (06/10/2024 11:37 PM EDT) Anatomical Region Laterality Modality Head Computed Tomogra phy 06/11/2024 1:37 AM EDT Impressions 06/11/2024 1:35 AM EDT IMPRESSION 1. Subarachnoid hemorrhage level identified in the posterior horn of the right and left lateral ventricles is increased when compared to the previous study. Dilated ventricles are present but unchanged when compared to the prior studies. 2. Intracranial atherosclerosis, cerebral volume loss, and patchy lucency in the bilateral cerebral white matter, most commonly representing chronic small vessel ischemic change. Narrative 06/11/2024 1:[address] HEAD/BRAIN WO CONTRAST - 06/10/2024 11:37 pm HISTORY F/u TBI TECHNIQUE Multiple contiguous axial images were obtained through the head, without the administration of intravenous contrast, using standard protocol. Coronal and sagittal reformats were provided. COMPARISON CT 06/10/2024 and 12/06/2022. MRI 12/05/[address] HEAD: CSF hematocrit level identified in the posterior horn of the right and left lateral ventricles is increased when compared to the previous study. Dilated ventricles are present but unchanged when compared to the prior studies. No mass lesions are identified on noncontrast CT. No abnormal extraaxial fluid collections are identified. Midline structures are normally developed and positioned. The brain shows normal morphology, attenuation, and volume for age. Bautista-white matter differentiation is grossly intact. Arterial calcifications are present in the proximal intracranial vessels, consistent with intracranial atherosclerosis. There is patchy lucency in the bilateral cerebral white matter, most commonly representing chronic small vessel ischemic change. There is diffuse cerebral volume loss, and, considering this, the ventricles are of normal size and contour. The bony calvarium is unremarkable. The intraorbital contents show no acute abnormality. The visualized paranasal sinuses and mastoid air cells are clear. Procedure Note Keaton Torres MD - 06/11/[address] HEAD/BRAIN WO CONTRAST - 06/10/2024 11:37 pm HISTORY F/u TBI TECHNIQUE Multiple contiguous axial images were obtained through the head, withoutthe administration of intravenous contrast, using standard protocol.Coronal and sagittal reformats were provided. COMPARISON CT 06/10/2024 and 12/06/2022. MRI 12/05/[address] HEAD: CSF hematocrit level identified in the posterior horn of the right andleft lateral ventricles is increased when compared to the previous study.Dilated ventricles are present but unchanged when compared to the priorstudies. No mass lesions are identified on noncontrast CT. No abnormalextraaxial fluid collections are identified. Midline structures arenormally developed and positioned. The brain shows normal morphology, attenuation, and volume for age.Bautista-white matter differentiation is grossly intact. Arterial calcifications are present in the proximal intracranial vessels,consistent with intracranial atherosclerosis. There is patchy lucency inthe bilateral cerebral white matter, most commonly representing chronicsmall vessel ischemic change. There is diffuse cerebral volume loss,and, considering this, the ventricles are of normal size and contour. The bony calvarium is unremarkable. The intraorbital contents show noacute abnormality. The visualized paranasal sinuses and mastoid air cellsare clear. IMPRESSION IMPRESSION 1. Subarachnoid hemorrhage level identified in the posterior horn of theright and left lateral ventricles is increased when compared to theprevious study. Dilated ventricles are present but unchanged when comparedto the prior studies. 2. Intracranial atherosclerosis, cerebral volume loss, and patchy lucencyin the bilateral cerebral white matter, most commonly representing chronicsmall vessel ischemic change. Merrill Vickers PA-C RAD CT * EKG (06/10/2024 11:16 PM EDT) 06/10/2024 11:1 6 PM EDT Narrative Procedure Note Raciel Coleman MD - 06/10/2024 11:16 PM EDT REASON FOR STUDY: rhonda CONCLUSIONS: Marked sinus bradycardia with A-V dissociation and Junctional bradycardiawith Sinus/atrial capture Left ventricular hypertrophy with secondary QRS widening ( R in aVL ,[place] product ) ST & T wave abnormality, consider inferolateral ischemia Abnormal ECG When compared with ECG of 04-Dec-2022 18:25, Significant changes have occurred Ventricular Rate: 39 Atrial Rate: 42 QRS Duration: 118 QT/QTc: 490/394 ms P-R-T [place]: 13 : -28 : 269 degrees Jessica Garcia MD EKG [facility] * (ABNORMAL) CULTURE, URINE, QUANTITATIVE (06/10/2024 10:55 PM EDT) Culture Growth 10,000 to 100,000 colonies/mL Escherichia coli(A) MICROBROTH DILUTIONS 06/13/2024 11:54 AM EDT LABORATORY [facility] Urine Urine specimen / Unknown Non-blood Collection / Unknown 06/10/2024 10:55 PM EDT 06/10/2024 11:03 PM EDT Narrative [facility] - 06/13/2024 11:54 AM EDT <10,000 colonies/ml mixed normal surendra Organism Antibiotic Method Susceptibility Escherichia coli Ampicillin MICROBROTH DILUTIONS >=32: Resistant Escherichia coli Ampicillin/Sulbactam MICROBROTH DILUT IONS 16: Intermediate Escherichia coli Cefazolin MICROBROTH DILUTIONS <=4: Susceptible Escherichia coli Cefepime MICROBROTH DILUTIONS <=1: Susceptible Escherichia coli Ceftriaxone MICROBROTH DILUTIONS <=1: Susceptible Escherichia coli Ciprofloxacin MICROBROTH DILUTIONS >=4: Resistant Comment:Due to rommel us side effects, the FDA has advised against using Ciprofloxacin to treat uncomplicated UTIs and respiratory tract infections unless there are no alternative treatment options. Escherichia coli Gentamicin MICROBROTH DILUTIONS <=1: Susceptible Escherichia coli Levofloxacin MICROBROTH DILUTIONS >=8: Resistant Comment:Due to rommel us side effects, the FDA has advised against using Levofloxacin to treat uncomplicated UTIs and respiratory tract infections unless there are no alternative treatment options. Escherichia coli Nitrofurantoin MICROBROTH DILUTIONS <=16: Susceptible Escherichia coli Piperacillin Tazobactam MICROBROTH DI LUTIONS <=4: Susceptible Escherichia coli Trimeth/Sulfamethoxazole MICROBROTH D ILUTIONS <=20: Susceptible Abdulaziz Alejandre MD LAB MICRO - GENERAL ORDERABLES Performing Organization Address City/[facility]/ZIP Co de Phone Number LABORATORY [facility] [address] [place] [address] * (ABNORMAL) GLUCOSE METER, POINT OF CARE (06/10/2024 10:33 PM EDT) Glucose Meter 67(L) 70 - 120 mg/dL 06/10/2024 11:45 PM EDT [facility] [employer] [facility] Blood Whole blood specimen / Unknown 06/10/2024 10:33 PM EDT 06/10/2024 11:45 PM EDT Srinivas Ortez DO LAB POINT OF CARE TE ST DOCKED DEVICE UNSOLICITED RESULTS Performing Organization Address [facility] Co de Phone Number [facility] [address] [place] [address] * APTT (06/10/2024 9:09 PM EDT) aPTT 28 21 - 38 seconds 06/10/2024 9:43 PM EDT LABORATORY [facility] Blood Venous blood specimen / Unknown Venipuncture / Unknown 06/10/2024 9:09 PM EDT 06/10/2024 9:15 PM EDT Narrative LABORATORY [facility] - 06/10/2024 9:43 PM EDT Anticoagulation may affect testing. Refer to [facility] Test Catalog for a list of effects. Jessica Garcia MD LAB BLOOD ORDERABL ES Performing Organization Address City/[facility]/ZIP Co de Phone Number LABORATORY [facility] [address] [place] [address] * PT INR (06/10/2024 9:09 PM EDT) Prothrombin Time 13.6 11.6 - 15.2 seconds 06/10/2024 9:40 PM EDT LAB[facility]ATORY [facility] INR 1.0 0.8 - 1.2 06/10/2024 9:40 PM EDT [facility] Blood Venous blood specimen / Unknown Venipuncture / Unknown 06/10/2024 9:09 PM EDT 06/10/2024 9:15 PM EDT Narrative [facility] - 06/10/2024 9:40 PM EDT Warfarin Therapy INR: 2.0-3.0 conventional anticoagulation INR: 2.5-3.5 high intensity anticoagulation Jessica Garcia MD LAB BLOOD ORDERABL ES LABORATORY [facility] [address] [place] [address] * CBC (06/10/2024 9:08 PM EDT) WBC 10.33 4.00 - 10.80 K/uL 06/10/2024 9:26 PM EDT LABORATORY [facility] RBC 4.59 3.85 - 5.15 M/uL 06/10/2024 9:26 PM EDT LAB[facility]ATORY [facility] HGB 13.0 12.0 - 15.3 g/dL 06/10/2024 9:26 PM EDT [facility] HCT 40.0 36.0 - 45.2 % 06/10/2024 9:26 PM EDT [facility] MCV 87.1 81.5 - 97.5 fL 06/10/2024 9:26 PM EDT LABORATORY [facility] MCH 28.3 27.0 - 34.0 pg 06/10/2024 9:26 PM EDT LAB[facility]ATORY [facility] MCHC 32.5 32.0 - 36.0 g/dL 06/10/2024 9:26 PM EDT LABORATORY [facility] RDW 17.1 11.5 - 15.5 % 06/10/2024 9:26 PM EDT [facility] PLT 249 140 - 400 K/uL 06/10/2024 9:26 PM EDT [facility] MPV 10.4 6.6 - 11.1 fL 06/10/2024 9:26 PM EDT LABORATORY [facility] nRBCs 0 <=0 /100 WBCs 06/10/2024 9:26 PM EDT LAB[facility]ORY [facility] Blood Venous blood specimen / Unknown Venipuncture / Unknown 06/10/2024 9:08 PM EDT 06/10/2024 9:15 PM EDT Jessica Garcia MD LAB BLOOD ORDERABL ES Performing Organization Address [facility] de Phone Number LABORATORY C [address] [place] [address] * (ABNORMAL) LACTATE (06/10/2024 9:08 PM EDT) Lactate 2.4(H) 0.4 - 2.0 mmol/L 06/10/2024 9:35 PM EDT LABORATORY C Blood Venous blood specimen / Unknown Venipuncture / Unknown 06/10/2024 9:08 PM EDT 06/10/2024 9:15 PM EDT Jessica Garcia MD LAB BLOOD ORDERABL ES Performing Organization Address [facility] de Phone Number LABORATORY C [address] [place] [address] * ETHANOL, MEDICAL (06/10/2024 9:08 PM EDT) ETHANOL, MEDICAL Negative Negative 06/10/2024 9:37 PM EDT LAB[facility]ATORY [facility] Blood Venous blood specimen / Unknown Venipuncture / Unknown 06/10/2024 9:08 PM EDT 06/10/2024 9:15 PM EDT Jessica Garcia MD LAB BLOOD ORDERABL ES Performing Organization Address [facility] Co de Phone Number LABORATORY C [address] [place] [address] * (ABNORMAL) BASIC METABOLIC PANEL (06/10/2024 9:08 PM EDT) BUN 14 6 - 20 mg/dL 06/10/2024 9:37 PM EDT LABORATORY GM Creatinine 0.9 0.5 - 1.0 mg/dL 06/10/2024 9:37 PM EDT [facility] Estimated Glomerular Filtration Rate 67 >=60 mL/min 06/10/2024 9:37 PM EDT [facility] Comment:eGFR is calculated b ased on the CKD-EPI 2020 equation. Sodium 140 135 - 146 mmol/L 06/10/2024 9:37 PM EDT [facility] Potassium 3.0(L) 3.5 - 5.1 mmol/L 06/10/2024 9:37 PM EDT [facility] Chloride 100 98 - 107 mmol/L 06/10/2024 9:37 PM EDT [facility] CO2 25 22 - 32 mmol/L 06/10/2024 9:37 PM EDT [facility] Anion Gap 15 7 - 15 mmol/L 06/10/2024 9:37 PM EDT [facility] Glucose 86 70 - 120 mg/dL 06/10/2024 9:37 PM EDT [facility] Calcium 9.6 8.4 - 10.2 mg/dL 06/10/2024 9:37 PM EDT [facility] Blood Venous blood specimen / Unknown Venipuncture / Unknown 06/10/2024 9:08 PM EDT 06/10/2024 9:15 PM EDT Jessica Garcia MD LAB BLOOD ORDERABL ES Performing Organization Address City/[facility]/ZIP Co de Phone Number LABORATORY [facility] [address] [place] [address] * AST (06/10/2024 9:08 PM EDT) AST 20 10 - 35 U/L 06/10/2024 9:37 PM EDT LABORATORY C Blood Venous blood specimen / Unknown Venipuncture / Unknown 06/10/2024 9:08 PM EDT 06/10/2024 9:15 PM EDT Jessica Garcia MD LAB BLOOD ORDERABL ES Performing Organization Address City/[facility]/ZIP Co de Phone Number LAB[facility]ATORY [facility] [address] [place] [address] * LAB VALIDATION EXTRA EDTA (06/10/2024 9:07 PM EDT) Blood Venous blood specimen / Unknown Venipuncture / Unknown 06/10/2024 9:07 PM EDT 06/10/2024 9:15 PM EDT Valeriano Arana DO LAB BLOOD ORDERAB LES LABORATORY [facility] [address] [facility] [place] [address] * TOXICOLOGY, URINESCREEN W/ CONFIRMATION (06/10/2024 9:02 PM EDT) [facility] Amphetamines Screen, U Negative Negative 06/10/2024 9:21 PM EDT LABORATORY [facility] Benzodiazepines Screen, U Negative Negative 06/10/2024 9:21 PM EDT LAB[facility]ATORY [facility] Cannabinoids Screen, U Negative Negative 06/10/2024 9:21 PM EDT LAB[facility]ATORY [facility] Cocaine Metabolite Screen, U Negative Negative 06/10/2024 9:21 PM EDT LAB[facility]ATORY [facility] Fentanyl Screen, U Negative Negative 2023 9:21 PM EDT LAB[facility]ATORY [facility] Hydrocodone Screen, U Negative Negative 06/10/2024 9:21 PM EDT LAB[facility]ATORY [facility] Methadone Metabolite Screen, U Negative Negative 06/10/2024 9:21 PM EDT LAB[facility]ATORY [facility] Morphine/Codeine Screen, U Negative Negative 06/10/2024 9:21 PM EDT LAB[facility]ATORY [facility] Oxycodone Screen, U Negative Negative 06/10 9:21 PM EDT LAB[facility]ATORY [facility] Urine Non-blood Collection / Unknown 06/10/2024 9:02 PM EDT 06/10/2024 9:06 PM EDT Narrative LABORATORY C - 06/10/2024 9:21 PM EDT Cutoff Concentrations: Drug Level Amphetamines 500 ng/mL Benzodiazepines 100 ng/mL Cannabinoids 50 ng/mL Cocaine Metabolite 150 ng/mL Fentanyl 1 ng/mL Hydrocodone / Hydromorphone 300 ng/mL Methadone Metabolite 100 ng/mL Morphine / Codeine 300 ng/mL Oxycodone / Oxymorphone 100 ng/mL Screening results are presumptive and can only be used for medical purposes. Positive screening results are reflexed to confirmatory testing. Jessica Garcia MD LAB URINE ORDERABL ES LABORATORY [facility] [address] [place] [address] * (ABNORMAL) CULTURE, URINE, QUANTITATIVE (06/10/2024 9:02 PM EDT) Culture Growth 10,000 to 100,000 colonies/mL Klebsiella pneumoniae(A) MICROBROTH DILUTIONS 06/13/2024 11:56 AM EDT LABORATORY GM Culture Growth 10,000 to 100,000 colonies/mL Escherichia coli(A) MICROBROTH DILUTIONS 06/13/2024 11:56 AM EDT LAB[facility]ATORY [facility] Urine Urine specimen obtained by clean catch procedure / Unknown Non-blood Collection / Unknown 06/10/2024 9:02 PM EDT 06/10/2024 9:11 PM EDT Narrative LABORATORY [facility] - 06/13/2024 11:56 AM EDT <10,000 colonies/ml mixed normal surendra Organism Antibiotic Method Susceptibility Klebsiella pneumoniae Ampicillin/Sulbactam MICRO BROTH DILUTIONS <=2: Susceptible Klebsiella pneumoniae Cefazolin MICROBROTH DILUTIONS <=4: Susceptible Klebsiella pneumoniae Cefepime MICROBROTH DILUTIONS <=1: Susceptible Klebsiella pneumoniae Ceftriaxone MICROBROTH DILUTIONS <=1: Susceptible Klebsiella pneumoniae Ciprofloxacin MICROBROTH DILUTIONS <=0.25: Susceptible Comment:Due to rommel us side effects, the FDA has advised against using Ciprofloxacin to treat uncomplicated UTIs and respiratory tract infections unless there are no alternative treatment options. Klebsiella pneumoniae Gentamicin MICROBROTH DILUTIONS <=1: Susceptible Klebsiella pneumoniae Nitrofurantoin MICROBROTH DILUTIONS 32: Susceptible Klebsiella pneumoniae Piperacillin Tazobactam AR CROBROTH DILUTIONS <=4: Susceptible Klebsiella pneumoniae Trimeth/Sulfametho xazol e MICROBROTH DILUTIONS <=20: Susceptible Escherichia coli Ampicillin MICROBROTH DILUTIONS >=32: Resistant Escherichia coli Ampicillin/Sulbactam MICROBROTH DILUTIONS 16: Intermediate Escherichia coli Cefazolin MICROBROTH DILUTIONS <=4: Susceptible Escherichia coli Cefepime MICROBROTH DILUTIONS <=1: Susceptible Escherichia coli Ceftriaxone MICROBROTH DILUTIONS <=1: Susceptible Escherichia coli Ciprofloxacin MICROBROTH DILUTIONS >=4: Resistant Comment:Due to rommel us side effects, the FDA has advised against using Ciprofloxacin to treat uncomplicated UTIs and respiratory tract infections unless there are no alternative treatment options. Escherichia coli Gentamicin MICROBROTH DILUTIONS <=1: Susceptible Escherichia coli Levofloxacin MICROBROTH DILUTIONS 4: Resistant Comment:Due to rommel us side effects, the FDA has advised against using Levofloxacin to treat uncomplicated UTIs and respiratory tract infections unless there are no alternative treatment options. Escherichia coli Nitrofurantoin MICROBROTH DILUTIONS <=16: Susceptible Escherichia coli Piperacillin Tazobactam MICROBR OTH DILUTIONS <=4: Susceptible Escherichia coli Trimeth/Sulfamethoxa zol e MICROBROTH DILUTIONS <=20: Susceptible Jessica Komal Jose ALONSO LAB MICRO - GENERA L ORDERABLES LAB[facility]ATORY [facility] [address] [place] [address] * (ABNORMAL) URINALYSIS, REFLEX TO MICROSCOPIC (06/10/2024 9:02 PM EDT) Color, Urine Light Yellow Colorless, Light Yellow, Yellow, Dark Yellow 06/10/2024 9:17 PM EDT [facility] Clarity, Urine Slightly Cloudy(A) Clear 06/10/2024 9:17 PM EDT [facility] Glucose, Urine Negative Negative mg/dL 06/10/2024 9:17 PM EDT [facility] Bilirubin, Urine Negative Negative 06/10/20 9:17 PM EDT LABORATORY C Ketone, Urine Negative Negative mg/dL 06/10/2024 9:17 PM EDT [facility] Specific [place], Urine 1.031(H) 1.003 - 1.030 06/10/2024 9:17 PM EDT [facility] Blood, Urine Negative Negative 06/10/2024 9:17 PM EDT LABORATORY C pH, Urine 6.0 5.0 - 7.5 Units 06/10/2024 9:17 PM EDT LABORATORY C Protein, Urine Negative Negative mg/dL 06/10/2024 9:17 PM EDT [facility] Urobilinogen, Urine Normal Normal mg/dL 06/10/2024 9:17 PM EDT LABORATORY C Nitrite, Urine Positive(A) Negative 9:17 PM EDT LABORATORY C Esterase, Urine Large(A) Negative 9:17 PM EDT [facility] RBC, Urine 0-2 0 - 2 /HPF 06/10/2024 9:17 PM EDT [facility] WBC, Urine 50+(A) 0 - 2 /HPF 06/10/2024 9:17 PM EDT [facility] Bacteria, Urine 26-50(A) 0 - 25 /HPF 06/10/20 9:17 PM EDT [facility] Hyaline, Cast, Urine 1-4(A) None /LPF 06/10/2024 9:17 PM EDT [facility] Transitional Epithelial Cells, Urine 1-4(A) None /HPF 06/10/2024 9:17 PM EDT [facility] Urine Non-blood Collection / Unknown 06/10/2024 9:02 PM EDT 06/10/2024 9:06 PM EDT Jessica Garcia MD LAB URINE ORDERABL ES [facility] [address] [place] [address] * XR CHEST 1 VIEW (06/10/2024 8:55 PM EDT) Anatomical Region Laterality Modality Chest Computed Radiogr aphy 06/10/2024 9:05 PM EDT Impressions 06/10/2024 9:03 PM EDT IMPRESSION No radiographically apparent acute traumatic findings. Narrative 06/10/2024 9:03 PM EDT EXAM XR CHEST 1 VIEW : 06/10/2024 8:55 pm HISTORY trauma TECHNIQUE XR CHEST 1 VIEW :PORTABLE SUPINE AP. COMPARISON XR CHEST: 06/10/2024 FINDINGS HEART AND MEDIASTINUM: Stable cardiomediastinal contours. Normal cardiac size. Atheromatous aorta. LUNGS AND PLEURA: Hypoinflation. No evidence of focal consolidation or significant pleural effusion. SOFT TISSUES AND BONES: Degenerative changes. No radiographic evidence of acute displaced fractures. UPPER ABDOMEN: Visualized portions are unremarkable. LINES, TUBES, AND FOREIGN BODIES: REVEAL recorder projects over the left lower chest. Procedure Note Masha Luo MD - 06/10/2024 EXAM XR CHEST 1 VIEW : 06/10/2024 8:55 pm HISTORY trauma TECHNIQUE XR CHEST 1 VIEW :PORTABLE SUPINE AP. COMPARISON XR CHEST: 06/10/2024 FINDINGS HEART AND MEDIASTINUM: Stable cardiomediastinal contours. Normal cardiacsize. Atheromatous aorta. LUNGS AND PLEURA: Hypoinflation. No evidence of focal consolidation orsignificant pleural effusion. SOFT TISSUES AND BONES: Degenerative changes. No radiographic evidence ofacute displaced fractures. UPPER ABDOMEN: Visualized portions are unremarkable. LINES, TUBES, AND FOREIGN BODIES: REVEAL recorder projects over the leftlower chest. IMPRESSION IMPRESSION No radiographically apparent acute traumatic findings. Jessica Garcia MD RADIOLOGY (RAD GEN ERAL) documented in this encounter Visit Diagnoses Diagnosis Intraventricular hemorrhage (HCC)- Primary Intracerebral hemorrhage Traumatic intraparenchymal hemorrhage (HCC) Other and unspecified intracranial hemorrhage following injury, without mention of open intracranial wound, unspecified state of consciousness Screening for cardiovascular condition Screening for other and unspecified cardiovascular conditions Syncope, unspecified syncope type Fall, initial encounter Intraventricular hemorrhage (HCC) Intracerebral hemorrhage Nontraumatic subarachnoid hemorrhage, unspecified (HCC) Cardiomegaly Cerebral atherosclerosis Abnormal findings on diagnostic imaging of skull and head, not elsewhere classified Cerebral ischemia Other generalized ischemic cerebrovascular disease White matter disease, 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 Avoid in patients with severe hepatic impairment or severe active liver disease. Use for 5 days. Given 06/10/2024 11:05 PM EDT 975 mg Acetaminophen (Tylenol) tab 975 mg 975 mg, Oral, Q6H PRN Pain, Mild, Fever >38C(100.5F), Starting on Sun06/11/24 at 1500, Until Sun06/13/24 at 1511, For 17 doses, Maximum 4 g acetaminophen/day. Avoid in patients with severe hepatic impairment or severe active liver disease. Use for 5 days. Given 06/12/2024 5:48 PM EDT 975 mg Allopurinol (Zyloprim) tab 200 mg 200 mg, Oral, Daily(AM), First dose on Sun06/11/24 at 0945, Until Discontinued Given 06/13/2024 8:09 AM EDT 200 mg Given 06/12/2024 8:12 AM EDT 200 mg Given 06/11/2024 9:45 AM EDT 200 mg atorvaSTATin (Lipitor) tab 80 mg 80 mg, Oral, Q1700, First dose on Sun06/11/24 at 1700, Until Discontinued Given 06/12/2024 5:45 PM EDT 80 mg cefTRIAXone in dextrose (Rocephin) IVPB 1 g IV Piggyback, 1 g, ONCE, 1 dose, On Sun06/10/24 at 2200, Administer over 30 Minutes New Bag 06/10/2024 10:14 PM EDT 1 g 100 mL/hr cefTRIAXone in dextrose (Rocephin) IVPB 1 g IV Piggyback, 1 g, Q24H, 6 doses, First dose on Sun06/11/24 at 1800, Last dose on Sun06/16/24 at 1800, Administer over 30 Minutes Rate Verify 06/11/2024 6:54 PM EDT 2 g/hr 100 mL/hr New Bag 06/11/2024 6:31 PM EDT 1 g 100 mL/hr Cephalexin (Keflex) cap 500 mg 500 mg, Oral, BID (.AM/PM), First dose on Sun06/12/24 at 1045, Last dose on Sun06/14/24 at 2100, For 3 days Given 06/13/2024 8:09 AM EDT 500 mg Given 06/12/2024 10:17 PM EDT 500 mg Given 06/12/2024 11:28 AM EDT 500 mg Docusate Sodium (Colace) cap 100 mg 100 mg, Oral, BID (.AM/PM), First dose on Sun06/10/24 at 2200, Until Discontinued, For oral administration ONLY, if route of administration is other than oral and alternative product must be ordered. Given 06/13/2024 8:09 AM EDT 100 mg Given 06/12/2024 10:17 PM EDT 100 mg Given 06/12/2024 8:11 AM EDT 100 mg Gabapentin (Neurontin) cap 600 mg 600 mg, Oral, BID (.AM/PM), First dose on Sun06/11/24 at 0945, Until Discontinued Given 06/13/2024 8:09 AM EDT 600 mg Given 06/12/2024 10:17 PM EDT 600 mg Given 06/12/2024 8:11 AM EDT 600 mg hEParin inj 5,000 Units 5,000 Units, Subcutaneous, Q8H, First dose on Sun06/11/24 at 1400, Until Discontinued Given 06/13/2024 5:25 AM EDT 5,000 Units Abdomen Right Lower Given 06/12/2024 10:17 PM EDT 5,000 Units Abdomen Right Lower Given 06/12/2024 2:41 PM EDT 5,000 Units A bdomen Left Upper hydroCHLOROthiazide cap 12.5 mg 12.5 mg, Oral, Daily(AM), First dose on Sun06/11/24 at 0945, Until Discontinued Given 06/13/2024 8:09 AM EDT 12.5 mg Given 06/12/2024 8:12 AM EDT 12.5 mg Given 06/11/2024 9:45 AM EDT 12.5 mg insulin aspart (NovoLOG) inj Subcutaneous, W/MEALS AND HS, First dose (after last modification) on Sun06/11/24 at 2200, Until Discontinued, MEDIUM DOSE (Usual starting dose): Sliding Scale Correctional insulin may be given if the patient is NPO. Dose based on standard build from Insulin Calculator. Do not modify insulin doses in administration instructions!, Glucose less than 70 instructions: Obtain STAT lab blood glucose and call covering provider., Glucose 80-150 (units): 0, Glucose 151-200 (units): 2, Glucose 201-250 (units): 4, Glucose 251-300 (units): 6, Glucose greater than 300 (units): 8, Glucose greater than 300 instructions: Give suggested insulin dose and call covering provider. Given 06/13/2024 8:56 AM EDT 2 Units Arm Left Upper Given 06/12/2024 10:24 PM EDT 4 Units A rm Right Upper Given 06/12/2024 5:45 PM EDT 2 Units Ar m Left Upper Iopamidol (Isovue 370) inj 80 mL 80 mL, Intravenous, ONCE, On Sun06/11/24 at 0700, For 1 dose, Radiology Medication Routing (Non-IR) Given 06/11/2024 7:00 AM EDT 65 mL isolyte-S pH 7.4 infusion Intravenous, at 100 mL/hr, Plasma-LYTE 148, isolyte-S, and isolyte-S pH 7.4 are considered equivalent - including for MAR barcode scanning., CONTINUOUS, Starting on Sun06/10/24 at 2200, Until Sun06/11/24 at 1203 New Bag 06/11/2024 11:22 AM EDT 100 mL/hr KVO 06/11/2024 10:07 AM EDT 5 mL/hr Restarted 06/11/2024 9:23 AM EDT 100 mL/hr Levothyroxine Sodium (Levoxyl) tab 125 mcg 125 mcg, Oral, [id number], First dose on Sun06/11/24 at 0630, Until Discontinued Given 06/12/2024 6:04 AM EDT 125 mcg Levothyroxine Sodium (Synthroid) 125 mcg tablet - PATIENT'S OWN MEDICATION 125 mcg, Oral, [id number], First dose on Sun06/13/24 at 0630, Until Discontinued, Please provide the name and dose of medication! Name Synthroid Dose 125 mcg Given 06/13/2024 5:25 AM EDT 125 mcg losartan (Cozaar) tab 25 mg 25 mg, Oral, Daily(AM), First dose on Sun06/12/24 at 1045, Until Discontinued Given 06/13/2024 8:09 AM EDT 25 mg Given 06/12/2024 11:28 AM EDT 25 mg magnesium sulfate 1 g in d5w 100mL LOCKED DOSE 1 g, IV Piggyback, Q1H, 2 doses, First dose on Sun06/11/24 at 0900, Last dose on Sun06/11/24 at 1000, Administer over 60 Minutes, Total dose is 2g New Bag 06/11/2024 10:49 AM EDT 1 g 100 mL/hr New Bag 06/11/2024 9:15 AM EDT 1 g 100 mL/hr Metoprolol Tartrate (Lopressor) tab 25 mg 25 mg, Oral, BID (.AM/PM), First dose on Sun06/10/24 at 2200, Until Discontinued, Hold for HR less than 60 or SBP below 100 and notify service if dose is held Given 06/10/2024 10:34 PM EDT 25 mg NSS 0.9% 500 mL bolus infusion Intravenous, at 500 mL/hr Administer over 60 Minutes, Administer entire volume within 60 minutes or less., ONCE, 1 dose, On Sun06/11/24 at 0215 New Bag 06/11/2024 2:15 AM EDT 500 mL 500 mL/hr omeprazole (PriLOSEC) cap 40 mg 40 mg, Oral, Daily(AM), First dose on Sun06/11/24 at 0900, Until Discontinued Given 06/13/2024 8:08 AM EDT 40 mg Given 06/12/2024 8:11 AM EDT 40 mg Given 06/11/2024 9:19 AM EDT 40 mg ondansetron (Zofran) inj 4 mg 4 mg, IV Push, Q6H PRN Other, May use for nausea or vomiting if patient unable to take oral ondansetron, Starting on Sun06/10/24 at 2102, Until Sun06/13/24 at 1511 ondansetron ODT (Zofran) tab 4 mg 4 mg, On Tongue, Q6H PRN Nausea, Vomiting, Starting on Sun06/10/24 at 2103, Until Sun06/13/24 at 1511 oxyCODONE (Oxy IR) tab 10 mg 10 mg, Oral, Q4H PRN Pain, Severe, Starting on Sun06/10/24 at 2103, Until Sun06/13/24 at 1511, Hold for somnolence or respiratory rate less than 10 oxyCODONE (Oxy IR) tab 5 mg 5 mg, Oral, Q4H PRN Pain, Moderate, Starting on Sun06/10/24 at 2103, Until Sun06/13/24 at 1511, Hold for somnolence or respiratory rate less than 10 plasma-LYte 148 infusion CONTINUOUS PRN NARRATOR, Starting on Sun06/10/24 at 2046, Until Sun06/10/24 at 2046 New Bag 06/10/2024 8:47 PM EDT 100 mL/hr 100 mL/hr potassium and sodium phosphate (Phos-Nak) oral powder 2 Packet 2 Packet, Oral, ONCE, On Sun06/11/24 at 1515, For 1 dose, Mix 1 packet in 2.5 ounces (75 mL) of water, stir well and administer promptly. 1 packet contains Phosphorus 250 mg (~8 mMoles) + potassium 280 mg (~7.125 mEq) + sodium 160mg (~7.125 mEq) Given 06/11/2024 3:15 PM EDT 2 Packets potassium chloride 10 mEq in 100 mL ivpb LOCKED DOSE 10 mEq, Peripheral IV, Q1H, 4 doses, First dose on Sun06/10/24 at 2200, Last dose on Sun06/11/24 at 0100, Administer over 60 Minutes, Standard infusion duration is 60 minutes. Rate Verify 06/11/2024 4:02 AM EDT 10 mEq/hr 100 mL/hr New Bag 06/11/2024 3:02 AM EDT 10 mEq 100 mL/hr Restarted 06/11/2024 2:25 AM EDT 10 mEq/hr 100 mL/hr potassium chloride ER tab 30 mEq 30 mEq, Oral, Q2H, First dose on Sun06/12/24 at 1000, Last dose on Sun06/12/24 at 1200, For 2 doses, This med should NOT be Crushed or Chewed Given 06/12/2024 11:28 AM EDT 30 mEq Given 06/12/2024 9:06 AM EDT 30 mEq potassium phosphate 15 mmol in NSS 250 mL (K phos) ivpb 15 mmol, Peripheral IV, ONCE, 1 dose, On Sun06/12/24 at 0845 Rate Verify 06/12/2024 12:00 PM EDT 6 mmol/hr 104 mL/hr Restarted 06/12/2024 11:26 AM EDT 6 mmol/hr 104 mL/hr Rate Verify 06/12/2024 11:00 AM EDT 6 mmol/hr 104 mL/hr senna (Senokot) 2 Tablet 2 Tablet, Oral, Daily(AM), First dose on Sun06/11/24 at 0900, Until Discontinued, hold if patient have loose stool or frequent bowel movements Given 06/13/2024 8:09 AM EDT 2 Tablets Given 06/12/2024 8:11 AM EDT 2 Tablets Given 06/11/2024 9:19 AM EDT 2 Tablets documented in this encounter Active and Recently Administered Medications Times are shown in EDT. Scheduled Medication Order 06/11/2024 06/12/2024 06/13/2024 Allopurinol (Zyloprim) tab 200 mg 200 mg, Oral, Daily(AM), First dose on Sun06/11/24 at 0945, Until Discontinued 0945 (Given - Provider: Yanet Quarles RN) 08 (Given - Provider: Stephani Barrientos RN) 08 (Given - Provider: Stephani Barrientos RN) atorvaSTATin (Lipitor) tab 80 mg 80 mg, Oral, Q1700, First dose on Sun06/11/24 at 1700, Until Discontinued 183 (Not Given - Provider: Yanet Quarles RN - Reason: Refused-Notify Provider - Comment: ARMANDO WIGGINS) 174 (Given - Provider: Stephani Barrientos RN) cefTRIAXone in dextrose (Rocephin) IVPB 1 g (CANCELED) IV Piggyback, 1 g, Q24H, 6 doses, First dose on Sun06/11/24 at 1800, Last dose on Sun06/16/24 at 1800, Administer over 30 Minutes 1831 (New Bag - Provider: Yanet Quarles RN)1854 (Rate Verify - Provider: Yanet Quarles RN)1901 (Stopped - Provider: Stephani Barrientos RN) 1001 (Stopped - Provider: Stephani Barrientos RN) Cephalexin (Keflex) cap 500 mg 500 mg, Oral, BID (.AM/PM), First dose on Melany 06/12/24 at 1045, Last dose on Sun06/14/24 at 2100, For 3 days 1128 (Given - Provider: Stephani Barrientos RN)221 (Given - Provider: Anisa Myers RN) 08 (Given - Provider: Stephani Barrinetos, KARINA) Docusate Sodium (Colace) cap 100 mg 100 mg, Oral, BID (.AM/PM), First dose on Sun06/10/24 at 2200, Until Discontinued, For oral administration ONLY, if route of administration is other than oral and alternative product must be ordered. 0919 (Given - Provider: Yanet Quarles RN)2100 (Not Given - Provider: Alberto Figueroa RN - Reason: Parameter(s) Not Met) 08 (Given - Provider: Stephani Barrientos RN)221 (Given - Provider: Anisa Myers RN - Comment: Laurita STEPHEN aware) 08 (Given - Provider: Stephani Barrientos RN) Gabapentin (Neurontin) cap 600 mg 600 mg, Oral, BID (.AM/PM), First dose on Sun06/11/24 at 0945, Until Discontinued 0918 (Given - Provider: Yanet Quarles RN)2156 (Given - Provider: Alberto Figueroa RN) 08 (Given - Provider: Stephani Barrientos RN)2216 (Given - Provider: Anisa Myers RN) 08 (Given - Provider: Stephani Barrientos RN) hEParin inj 5,000 Units 5,000 Units, Subcutaneous, Q8H, First dose on Sun06/11/24 at 1400, Until Discontinued 1428 (Given - Provider: Yanet Quarles RN)215 (Given - Provider: Alberto Figueroa RN) 0600 (Given - Provider: Alberto Figueroa RN)1441 (Given - Provider: Stephani Barrientos RN)221 (Given - Provider: Anisa Myers RN) 0525 (Given - Provider: Anisa Myers RN) hydroCHLOROthiazide cap 12.5 mg 12.5 mg, Oral, Daily(AM), First dose on Sun06/11/24 at 0945, Until Discontinued 0945 (Given - Provider: Yanet Quarles RN) 08 (Given - Provider: Stephani Barrientos RN) 08 (Given - Provider: Stephani Barrientos RN) insulin aspart (NovoLOG) inj Subcutaneous, W/MEALS AND HS, First dose (after last modification) on Sun06/11/24 at 2200, Until Discontinued, MEDIUM DOSE (Usual starting dose): Sliding Scale Correctional insulin may be given if the patient is NPO. Dose based on standard build from Insulin Calculator. Do not modify insulin doses in administration instructions!, Glucose less than 70 instructions: Obtain STAT lab blood glucose and call covering provider., Glucose 80-150 (units): 0, Glucose 151-200 (units): 2, Glucose 201-250 (units): 4, Glucose 251-300 (units): 6, Glucose greater than 300 (units): 8, Glucose greater than 300 instructions: Give suggested insulin dose and call covering provider. 2211 (Given - Provider: Alberto Figueroa, RN) 0906 (Given - Provider: Stephani Barrientos, RN)1305 (Given - Provider: Stephani Barrientos, RN)1745 (Given - Provider: Stephani Barrientos, KARINA)2224 (Given - Provider: Anisa Myers, KARINA) 0856 (Given - Provider: Stephani Barrientos, RN) Iopamidol (Isovue 370) inj 80 mL (COMPLETED) 80 mL, Intravenous, ONCE, On Sun06/11/24 at 0700, For 1 dose, Radiology Medication Routing (Non-IR) 0700 (Given - Provider: Hussein Chinchilla, RT (R)) Levothyroxine Sodium (Levoxyl) tab 125 mcg (CANCELED) 125 mcg, Oral, [id number], First dose on Sun06/11/24 at 0630, Until Discontinued 0630 (Not Given - Provider: Brian Ivory RN - Reason: Refused-Notify Provider) 0604 (Given - Provider: Alberto Figueroa RN) Levothyroxine Sodium (Synthroid) 125 mcg tablet - PATIENT'S OWN MEDICATION 125 mcg, Oral, [id number], First dose on Sun06/13/24 at 0630, Until Discontinued, Please provide the name and dose of medication! Name Synthroid Dose 125 mcg 0525 (Given - Provider: Anisa Myers, KARINA) losartan (Cozaar) tab 25 mg 25 mg, Oral, Daily(AM), First dose on Sun06/12/24 at 1045, Until Discontinued 1128 (Given - Provider: Stephani Barrientos RN) 0809 (Given - Provider: Stephani Barrientos, RN) magnesium sulfate 1 g in d5w 100mL LOCKED DOSE (COMPLETED) 1 g, IV Piggyback, Q1H, 2 doses, First dose on Sun06/11/24 at 0900, Last dose on Sun06/11/24 at 1000, Administer over 60 Minutes, Total dose is 2g 0915 (New Bag - Provider: Yanet Quarles, RN)1015 (Paused - Provider: Yanet Quarles, RN)1049 (New Bag - Provider: Yanet Quarles, RN) NSS 0.9% 500 mL bolus infusion (COMPLETED) Intravenous, at 500 mL/hr Administer over 60 Minutes, Administer entire volume within 60 minutes or less., ONCE, 1 dose, On Sun06/11/24 at 0215 0215 (New Bag - Provider: Brian Ivory RN) omeprazole (PriLOSEC) cap 40 mg 40 mg, Oral, Daily(AM), First dose on Sun06/11/24 at 0900, Until Discontinued 918 (Given - Provider: Yanet Quarles RN) 08 (Given - Provider: Stephani Barrientos, KARINA) 08 (Given - Provider: Stephani Barrientos, RN) potassium and sodium phosphate (Phos-Nak) oral powder 2 Packet (COMPLETED) 2 Packet, Oral, ONCE, On Sun06/11/24 at 1515, For 1 dose, Mix 1 packet in 2.5 ounces (75 mL) of water, stir well and administer promptly. 1 packet contains Phosphorus 250 mg (~8 mMoles) + potassium 280 mg (~7.125 mEq) + sodium 160mg (~7.125 mEq) 1515 (Given - Provider: Yanet Quarles RN) potassium chloride 10 mEq in 100 mL ivpb LOCKED DOSE (COMPLETED) 10 mEq, Peripheral IV, Q1H, 4 doses, First dose on Sun06/10/24 at 2200, Last dose on Sun06/11/24 at 0100, Administer over 60 Minutes, Standard infusion duration is 60 minutes. 0022 (New Bag - Provider: Brian Ivory RN)0122 (Stopped - Provider: Brian Ivory RN)0128 (New Bag - Provider: Brian Ivory RN)0154 (Paused - Provider: Brian Ivory RN)0225 (Restarted - Provider: Brian Ivory RN)0300 (Stopped - Provider: Brian Ivory, KARINA)0302 (New Bag - Provider: Brian Ivory RN)0402 (Rate Verify - Provider: Brian Ivory, KARINA) potassium chloride ER tab 30 mEq (COMPLETED) 30 mEq, Oral, Q2H, First dose on Sun06/12/24 at 1000, Last dose on Sun06/12/24 at 1200, For 2 doses, This med should NOT be Crushed or Chewed 905 (Given - Provider: Stephani Barrientos, RN)1128 (Given - Provider: Stephani Barrientos RN - Comment: NEELIMA) potassium phosphate 15 mmol in NSS 250 mL (K phos) ivpb (COMPLETED) 15 mmol, Peripheral IV, ONCE, 1 dose, On Melany 06/12/24 at 0845 0940 (New Bag - Provider: Stephani Barrientos, RN)1000 (Rate Verify - Provider: Stephani Barrientos RN)1100 (Rate Verify - Provider: Stephani Barrientos RN)1107 (Paused - Provider: Stephani Barrientos, RN)1126 (Restarted - Provider: Stephani Barrientos, RN)1200 (Rate Verify - Provider: Stephani Barrientos, RN)1230 (Stopped - Provider: Stephani Barrientos, KARINA) senna (Senokot) 2 Tablet 2 Tablet, Oral, Daily(AM), First dose on Sun06/11/24 at 0900, Until Discontinued, hold if patient have loose stool or frequent bowel movements 0919 (Given - Provider: Yanet Quarles RN) 0811 (Given - Provider: Stephani Barrientos, KARINA) 0809 (Given - Provider: Stephani Barrientos, RN) Continuous Medication Order 06/11/2024 06/12/2024 06/13/2024 isolyte-S pH 7.4 infusion (CANCELED) Intravenous, at 100 mL/hr, Plasma-LYTE 148, isolyte-S, and isolyte-S pH 7.4 are considered equivalent - including for MAR barcode scanning., CONTINUOUS, Starting on Sun06/10/24 at 2200, Until Sun06/11/24 at 1203 0152 (Paused - Provider: Brian Ivory, KARINA)0223 (KVO - Provider: Brian Ivory, KARINA)0227 (New Bag - Provider: Brian Ivory, KARINA)0402 (Rate Verify - Provider: Brian Ivory RN)0548 (Paused - Provider: Brian Ivory, KARINA)0619 (Restarted - Provider: Brian Ivory, KARINA)0623 (Paused - Provider: Brian Ivory, RN)0627 (Restarted - Provider: Brian Ivory RN)0633 (Rate Verify - Provider: Brian Ivory RN)0741 (Paused - Provider: Yanet Quarles RN)0745 (Restarted - Provider: Yanet Quarles RN)0921 (Paused - Provider: Yanet Quarles RN)0923 (Restarted - Provider: Yanet Quarles RN)1007 (KVO - Provider: Yanet Quarles RN)1041 (Stopped - Provider: Yanet Quarles RN)1122 (New Bag - Provider: Yanet Quarles RN)1203 (Stopped - Provider: Yanet Quarles RN) PRN Medication Order 06/11/2024 06/12/2024 06/13/2024 Acetaminophen (Tylenol) tab 975 mg 975 mg, Oral, Q6H PRN Pain, Mild, Fever >38C(100.5F), Starting on Sun06/11/24 at 1500, Until Sun06/13/24 at 1511, For 17 doses, Maximum 4 g acetaminophen/day. Avoid in patients with severe hepatic impairment or severe active liver disease. Use for 5 days. 174 (Given - Provider: Stephani Barrientos RN) dextrose 50% inj 25 mL 25 mL, IV Push, PRN Hypoglycemia, Other, For blood glucose 54 - 69 mg/dL or 70 - 100 mg/dL with symptoms AND patient is unresponsive, NPO, OR unable to swallow, Starting on Sun06/10/24 at 2121, Until Sun06/13/24 at 1511, Administer IV. Recheck blood glucose after 15 minutes. Notify provider. dextrose 50% inj 50 mL 50 mL, IV Push, PRN Hypoglycemia, Other, For blood glucose below 54 mg/dL AND patient unresponsive, NPO, OR unable to swallow, Starting on Sun06/10/24 at 2121, Until Sun06/13/24 at 1511, Administer IV. Recheck blood glucose in 15 minutes. Notify provider. glucagon (Glucagen) inj 1 mg 1 mg, Intramuscular, PRN Hypoglycemia, Other, If patient is unresponsive, or NPO and has no IV access, Starting on Sun06/10/24 at 2121, Until Sun06/13/24 at 1511, NPO and no IV access with either [...] patient alert WITH difficulty chewing/swallowing, Starting on Sun06/10/24 at 2120, Until Sun06/13/24 at 151, Administer gel. Recheck blood glucose after 15 minutes. Notify provider. 37.5 gram tube = 15 grams glucose = 1 each Glucose (Glutose 15) 40 % gel 30 g of glucose 30 g of glucose, Oral, PRN Hypoglycemia (low sugar), Other, For blood glucose below 54 mg/dL AND patient alert WITH difficulty chewing/swallowing, Starting on Sun06/10/24 at 2120, Until Sun06/13/24 at 1510, Administer gel. Recheck blood glucose after 15 minutes. Notify provider. 37.5 gram tube = 15 grams glucose = 1 each glucose chew tab 16 g 16 g, Oral, PRN Hypoglycemia, Other, For blood glucose 54 - 69 mg/dL or 70 - 100 mg/dL with symptoms and patient alert without difficulty chewing/swallowing., Starting on Sun06/10/24 at 2120, Until Sun06/13/24 at 1510 ondansetron (Zofran) inj 4 mg(Linked Group 1) 4 mg, IV Push, Q6H PRN Other, May use for nausea or vomiting if patient unable to take oral ondansetron, Starting on Sun06/10/24 at 2102, Until Sun06/13/24 at 1510 ondansetron ODT (Zofran) tab 4 mg(Linked Group 1) 4 mg, On Tongue, Q6H PRN Nausea, Vomiting, Starting on Sun06/10/24 at 2102, Until Sun06/13/24 at 151 oxyCODONE (Oxy IR) tab 10 mg 10 mg, Oral, Q4H PRN Pain, Severe, Starting on Sun06/10/24 at 2102, Until Sun06/13/24 at 151, Hold for somnolence or respiratory rate less than 10 oxyCODONE (Oxy IR) tab 5 mg 5 mg, Oral, Q4H PRN Pain, Moderate, Starting on Sun06/10/24 at 2103, Until Sun06/13/24 at 1511, Hold for somnolence or respiratory rate less than 10 Linked Groups Order Group 1: ondansetron ODT (Zofran) tab 4 mgJump to med 4 mg, On Tongue, Q6H PRN Nausea, Vomiting, Starting on Sun06/10/24 at 2103, Until Sun06/13/24 at 1511 Or ondansetron (Zofran) inj 4 mgJump to med 4 mg, IV Push, Q6H PRN Other, May use for nausea or vomiting if patient unable to take oral ondansetron, Starting on Sun06/10/24 at 2103, Until Sun06/13/24 at 1511 documented in this encounter Advance Directives * [...] Directives occurred with: Not Discussed Care Teams Sample Weaver Relationship Specialty Start Date End Date Jag Kovacs MD [address] [address] PCP - General Family Medicine 08/05/21 documented as of this encounter
--- OUTSIDE RECORDS SUMMARY | 2024-08-21 14:11 | External Medical Summary ---
Author Name Unknown Address Unknown Organization : Laboratory Report Ordering Provider Test Date Status GLADYS PAIGE 06/12/2024 21:57:13 Final Observation Date Value Abnormality Reference (Units ) Status Glucose Point of Care 06/12/2024 21:57:13 244 Above high normal 70-120 (mg/dL) Final Performing Location
--- OUTSIDE RECORDS SUMMARY | 2024-08-21 14:11 | External Medical Summary | Summary of Care ---
Author Name Unknown Organization [facility] Address [address] [place] [address] Phone [phone] Care Team Providers Care Fisher Quahog Name Role Phone Jag Kovacs MD Primary Care Provider Reason for Visit * Auth/Cert Specialty Diagnoses / Procedures Referred By Bernard t Referred To Contact Diagnoses Traumatic intraparenchymal hemorrhage (HCC) Jessica Lara MD [address] [place] [address] Emergency Medicine [facility] [address] [place] [address] Referral ID Status Reason Start Date Expiration Date Visits Re quested Visits Authorized [id number] Encounter Details Date Type Department Care Team (Latest Contact Info) Description 06/11/2024 9:56 AM EDT - 06/11/2024 11:59 PM EDT Hospital Encounter Cardiac Studies [facility] [address] [place] [address] Discharge Disposition: Home - Self Care Allergies Active Allergy Reactions Criticality Noted Date Comments Diphenhydramine 09/03/2018 Epinephrine Other (Please comment) 07/03/2023 Propranolol Hcl 09/29/2010 "TIA" - like reactions Lisinopril Cough 08/04/2008 Mepivacaine Hcl 06/30/2008 With epi: whole face sagged Simvastatin 12/25/2012 Myalgia-nl CK documented as of this encounter (statuses as of 06/12/2024) Medications Medication Sig Dispensed Refills Start Date End Date Status PENELOPE MORENO MISCIndications:DM type 2, goal A1c below 7 use as directed up to 4 times per day 100 Each 11 3 Suspended Additional Information Cyanocobalamin (B-12) 1000 MCG TABS Take 1 Tab by mouth daily. 30 Tab 5 9 Suspended Additional Information zoster vac recomb adjuvanted (SHINGRIX) 50 MCG/0.5ML injectionIndicatio ns:Need for vaccination for zoster Inject 0.5 mL into a large muscle now and repeat dose in 60 to 180 days 1 Each 1 0 Suspended Additional Information Vitamin D3 25 MCG (1000 UT) Oral Capsule Take 1 Capsule by mouth once. Suspended Atorvastatin Calcium 80 MG Oral Tablet (Lipitor) Take 1 Tablet by mouth every afternoon. 30 Tablet 3 Suspended Additional Information Losartan Potassium 25 MG Oral Tablet (Cozaar) Take 1 Tablet by mouth in the morning. 30 Tablet 3 Suspended Additional Information Acetaminophen 325 MG Oral Tablet (Tylenol) Take 2 Tablets by mouth every 8 hours as needed for Pain, Moderate. Suspended Hydrocortisone 1 % External Cream Apply topically to affected area daily as needed for Hemorrhoids. Apply to hemorhoids 3 Suspended Metoprolol Tartrate 50 MG Oral Tablet (Lopressor) Take 0.5 Tablets by mouth in the morning and 0.5 Tablets before bedtime. 3 Suspended Clotrimazole-Betam ethasone 1-0.05 % External Cream Apply topically to affected area twice daily. 45 g 2 3 Suspended Additional Information OneTouch Ultra In Vitro Strip (Glucose Blood)Indications: Type 2 diabetes mellitus with hemoglobin A1c goal of less than 8.0% (HCC) Use as directed to check blood sugar once a day. 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) TAKE 1 TABLET BY MOUTH TWICE DAILY WITH MEALS 180 Tablet 3 3 Suspended Additional Information Allopurinol 100 MG Oral Tablet (Zyloprim)Indicati ons:Gouty arthropathy Take 2 tablets by mouth once daily 180 Tablet 1 4 Suspended Additional Information glipiZIDE ER 10 MG Oral Tablet Extended Release 24 Hour (Glucotrol XL)Indications:Typ e 2 diabetes mellitus with hemoglobin A1c goal of less than 7.0% (HCC) TAKE 1 TABLET BY MOUTH ONCE DAILY 30 MINUTES BEFORE A MEAL 90 Tablet 1 4 Suspended Additional Information hydroCHLOROthiazid e 12.5 MG Oral Capsule (Hydrodiuril)Indic ations:HTN, goal below 140/80 Take 1 capsule by mouth once daily 90 Capsule 2 4 Suspended Additional Information Gabapentin 300 MG Oral Capsule (Neurontin)Indicat ions:Post-herpetic polyneuropathy Take 2 Capsules by mouth in the morning and 2 Capsules before bedtime. 360 Capsule 3 4 Suspended Additional Information Omeprazole 40 MG Oral Capsule Delayed Release (PriLOSEC)Indicati ons:History of esophageal stricture,Gastroes ophageal reflux disease, unspecified whether esophagitis present Take 1 Capsule by mouth at bedtime. 90 Capsule 3 4 Suspended Additional Information Synthroid 125 MCG Oral TabletIndications: Acquired hypothyroidism TAKE 1 TABLET BY MOUTH ONCE DAILY AT LEAST 30 MINUTES PRIOR TO BREAKFAST OR OTHER MEDICATIONS 90 Tablet 1 4 Suspended Additional Information Warfarin Sodium 2.5 MG Oral Tablet (Coumadin)Indicati ons:Hemiplegia, post-stroke (HCC),Paroxysmal atrial fibrillation (HCC) TAKE 1 TO 2 TABLETS BY MOUTH IN THE EVENING DIRECTED BY ANTICOAGULATION CLINIC 180 Tablet 1 4 Suspended Additional Information documented as of this encounter (statuses as of 06/12/2024) Active Problems Problem Noted Date Diagnosed Date Fall 06/11/2024 Intraventricular hemorrhage 06/11/2024 Complete heart [...] as of this encounter (statuses as of 06/12/2024) Resolved Problems Problem Noted Date Diagnosed Date [...] nuclear stress test 05/08/2016 06/12/2017 Overview: 05/04-at [place] card++++ B12 deficiency 08/12/2015 06/12/2017 Overview: b12-231, [...] 5 yrs-Mely. Noel scope 02/28/2010 Dr. Lynn, [place] internal hemorrhoid, normal colon, repeat 5 years [...] as of this encounter (statuses as of 06/12/2024) Immunizations Name Administration Dates Next Due PPD [...] No 06/20/2023 Does the household have a [facility] source of income? (Household - for ages [...] Care Team (Late st Contact Info) Description 06/13/2024 1:30 PM EDT Anticoagulation Pharmacy, [place] [address] [address] Pharmacist1, [facility] [place] [address] [address] 07/02/2024 9:20 AM EDT Office Visit Neurosurgery, [address] [address] [facility] [place] Traumatic Brain [place] [address] [place] [address] 08/28/2024 6:00 PM EDT Office Visit [facility] [address] [place] [phone] Jag Kovacs MD [address] [place] [address] 09/11/2024 2:00 PM EDT Office Visit Podiatry, [facility] [address] [place] [address] Azul Nye DPM [address] [place], [place] [phone] Scheduled Procedures Name Priority Associated Diagnoses Date/Ti [...] 03/17/2024, , 03/16/2023, Additional history exists GFR 06/12/2025 06/12/2024, 05/20, 06/10/2024, Additional history exists DXA Scan 06/05/2026 06/05/2019, [...] Procedure Name Priority Date/Time Associated Diagnosis Comments ECHO, COMPLETE (2D), TRANS-THORACIC Routine 06/11/2024 10:33 AM EDT Syncope, unspecified syncope type documented in this encounter Visit Diagnoses Diagnosis Complete heart block (HCC)- Primary Atrioventricular block, complete Extension of stroke (HCC) NSVT (nonsustained ventricular tachycardia) (HCC) Paroxysmal ventricular tachycardia Paroxysmal atrial fibrillation (HCC) Atrial fibrillation HTN, goal below 140/90 Unspecified essential hypertension documented in this encounter Administered Medications Inactive Administered Medications - up to 3 most recent administrations Medication Order MAR Action Action Date Dose Rate Site perflutren lipid microsphere inj SUSP 1.956 mg 1.956 mg, Intravenous, ONCE PRN Other, For Echo Only - Suboptimal Echo Images, Starting on Sun06/11/24 at 1018, Until Sun06/11/24 at 1217, For 2 hours, Administer IVP over 45 seconds, Cardiac Studies_HODHOV Given 06/11/2024 10:18 AM EDT 1.956 mg documented in this encounter Advance Directives * Full Code (Latest Code Status on File) Date Activated Date Inactivated Comments 06/10/2024 9:19 PM This order ref lects the patients [...] Directives occurred with: Not Discussed Care Teams Fisher Quahog Relationship Specialty Start Date End Date Jag Kovacs MD [address] [phone] PCP - General Family Medicine 08/05/21 documented as of this encounter
--- OUTSIDE RECORDS SUMMARY | 2024-08-21 14:11 | External Medical Summary ---
Author Name Unknown Address Unknown Organization K01:LABORATORY C - [address] [place] [address] Laboratory Report Ordering Provider Test Date Status SCOTT SCHAEFER 06/13/2024 07:14:00 Final Observation Date Value Abnormality Reference (Units ) Status Magnesium 06/13/2024 07:14:00 1.7 1.5-2.6 (m g/dL) Final Performing Location [facility] - [address] [facility] [address]
--- OUTSIDE RECORDS SUMMARY | 2024-08-21 14:11 | External Medical Summary ---
Author Name Unknown Address Unknown Organization : Laboratory Report Ordering Provider Test Date Status GLADYS PAIGE 06/12/2024 16:48:46 Final Observation Date Value Abnormality Reference (Units ) Status Glucose Point of Care 06/12/2024 16:48:46 162 Above high normal 70-120 (mg/dL) Final Performing Location
--- OUTSIDE RECORDS SUMMARY | 2024-08-21 14:11 | External Medical Summary ---
Author Name Unknown Address Unknown Organization K01:[facility]ATORY [facility] [place] [facility] [place] [facility] [address]. [facility] [address] Laboratory Report Ordering Provider Test Date Status SCOTT SCHAEFER 06/13/2024 07:14:00 Final Observation Date Value Abnormality Reference (Units ) Status Calcium.ionized [Moles/volume] in Serum or Plasma by Ion-selective membrane electrode (ISE) 06/13/2024 07:14:00 1.29 1.13-1.32 (mmol/L) Final This test was developed and its performance characteristics dtermined by [email or web address]. It has not been cleared or approved by the US Food and Drug Administration Performing Location LABORATORY [place] [address] [address] [facility] [address]
--- OUTSIDE RECORDS SUMMARY | 2024-08-21 14:11 | External Medical Summary | Summary of Care ---
Author Name Unknown Organization [facility] Address [address] [place] [address] Phone [phone] Care Team Providers Care Sales And Merchandising Associate Name Role Phone Jag Kovacs MD Primary Care Provider Encounter Details Date Type Department Care Team (Late st Contact Info) Description 06/13/2024 Telephone Pharmacy, [place] [address] [address] Jose Martin Castellon, [facility] [address] [address] Allergies Active Allergy Reactions Criticality Noted Date [...] twice daily. 45 g 2 04/10/2023 Active LOGIDOC-SolutionsTouch Ultra In Vitro Strip (Glucose Blood)Indications:Ty pe [...] OTHER MEDICATIONS 90 Tablet 1 02/13/2024 Active Cephalexin 500 MG Oral Capsule (Keflex) Take 1 Capsule by mouth in the morning and 1 Capsule before bedtime. Do all this for 1 day. 2 Capsule 06/13/2024 4 Active Docusate Sodium 100 MG Oral Capsule (Colace) Take 1 Capsule by mouth in the morning and 1 Capsule before bedtime. 30 Capsule 06/13/2024 Active Sennosides 8.6 MG Oral Tablet (Senokot) Take 2 Tablets by mouth in the morning. 30 Tablet 06/13/2024 Active Heparin Sodium (Porcine) PF 5000 UNIT/0.5ML Injection Solution Inject 0.5 mL under the skin in the morning and 0.5 mL at noon and 0.5 mL before bedtime. Do all this for 4 days. 6 mL 06/13/2024 4 Active Enoxaparin Sodium 40 MG/0.4ML Injection Solution Prefilled Syringe (Lovenox) Inject 40 mg under the skin in the morning and 40 mg before bedtime. Do all this for 9 days. Do not start before June 18, 2024. 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 With meals.. Do not start before June 14, 2024. 180 Tablet 3 06/14/2024 Active documented as of this encounter (statuses [...] nuclear stress test 05/08/2016 06/12/2017 Overview: 05/04-at [place] card++++ B12 deficiency 08/12/2015 06/12/2017 Overview: b12-231, [...] 5 yrs-Mely. Noel scope 02/28/2010 Dr. Lynn [place] internal hemorrhoid, normal colon, repeat 5 years [...] encounter Miscellaneous Notes * Telephone Encounter - Jose Martin Castellon RPh - 06/13/2024 1:11 PM EDT Images from the original note were not included. Medication Therapy Disease Management - Anticoagulation Patient: Alka Lawson | : 1940 [place] [facility]. Discharged today to [place]. Will follow-up on recommendations from 07/02 Neurology visit. Jose Martin Castellon RPh Clinical Pharmacist 06/13/2024, 1:11 PM documented in this encounter Plan of Treatment Upcoming Encounters Date Type Department Care Team (Late st Contact Info) Description 07/02/2024 9:20 AM EDT Office Visit Neurosurgery, [address] [address] [facility] [place] [address] [place] [address] 08/28/2024 6:00 PM EDT Office Visit [facility] [address] [phone] Jag Kovacs MD [address] [phone] 09/11/2024 2:00 PM EDT Office Visit Podiatry, [facility] [address] [place] [address] Azul Nye [place] [address] [place], [place] [phone] Scheduled Procedures Name Priority Associated Diagnoses Date/Ti [...] Directives occurred with: Not Discussed Care Teams Sales And Merchandising Associate Relationship Specialty Start Date End Date Jag Kovacs MD [address] [address] PCP - General Family Medicine 08/05/21 documented as of this encounter
--- OUTSIDE RECORDS SUMMARY | 2024-08-21 14:11 | External Medical Summary ---
Author Name Unknown Address Unknown Organization : Laboratory Report Ordering Provider Test Date Status GLADYS PAIGE 06/13/2024 08:05:50 Final Observation Date Value Abnormality Reference (Units ) Status Glucose Point of Care 06/13/2024 08:05:50 180 Above high normal 70-120 (mg/dL) Final Performing Location
--- OUTSIDE RECORDS SUMMARY | 2024-08-21 14:11 | External Medical Summary ---
Author Name Unknown Address Unknown Organization K01:LABORATORY [facility] [place] - [facility] [address] [facility] [address] [facility] [address] Laboratory Report Ordering Provider Test Date Status SCOTT SCHAEFER 06/13/2024 07:14:00 Final Observation Date Value Abnormality Reference (Units ) Status WBC, Total 06/13/2024 07:14:00 7.71 4.00-10.80 (K/uL) Final RBC 06/13/2024 07:14:00 4.66 3.85-5.15 (M/uL) Final Hemoglobin 06/13/2024 07:14:00 13.4 12.0-15.3 (g/dL) Final HCT 06/13/2024 07:14:00 41.4 36.0-45.2 (%) Final MCV 06/13/2024 07:14:00 88.8 81.5-97.5 (fL) Final MCH 06/13/2024 07:14:00 28.8 27.0-34.0 (pg) Final MCHC 06/13/2024 07:14:00 32.4 32.0-36.0 (g/dL) Final RDW 06/13/2024 07:14:00 17.6 11.5-15.5 (%) Final Platelets 06/13/2024 07:14:00 245 140-400 (K/uL) Final MPV 06/13/2024 07:14:00 10.5 6.6-11.1 (fL) Final Nucleated erythrocytes/100 leukocytes [Ratio] in Blood by Automated count 06/13/2024 07:14:00 0 <=0 (/100 WBCs) Final Performing Location LABORATORY [facility] [place] - [address] [facility] [address]
--- OUTSIDE RECORDS SUMMARY | 2024-08-21 14:11 | External Medical Summary ---
Author Name Unknown Address Unknown Organization K01:LABORATORY C - [address] [place] [address] Laboratory Report Ordering Provider Test Date Status SCOTT SCHAEFER 06/13/2024 07:14:00 Final Observation Date Value Abnormality Reference (Units ) Status Phosphate 06/13/2024 07:14:00 2.7 2.5-4.8 (m g/dL) Final Performing Location [facility] - [address] [place] [address]
--- OUTSIDE RECORDS SUMMARY | 2024-08-21 14:11 | External Medical Summary ---
Author Name Unknown Address Unknown Organization K01:LABORATORY [facility] [place] - [address] [facility] [address] Laboratory Report Ordering Provider Test Date Status SCOTT SCHAEFER 06/13/2024 07:14:00 Final Observation Date Value Abnormality Reference (Units ) Status BUN 06/13/2024 07:14:00 9 6-20 (mg/dL) Final Creatinine 06/13/2024 07:14:00 0.9 0.5-1.0 (mg/dL) Final Glomerular filtration rate/1.73 sq M.predicted [Volume Rate/Area] in Serum, Plasma or Blood by Creatinine-based formula (CKD-EPI) 06/13/2024 07:14:00 67 >=60 (mL/min) Final eGFR is calculated based on the CKD-EPI 2020 equation. Sodium 06/13/2024 07:14:00 138 135-146 (m mol/L) Final Potassium 06/13/2024 07:14:00 4.0 3.5-5.1 (m mol/L) Final Cl 06/13/2024 07:14:00 103 98-107 (mm ol/L) Final CO2 06/13/2024 07:14:00 24 22-32 (mmo l/L) Final Anion gap 06/13/2024 07:14:00 11 7-15 (mmol /L) Final Glucose 06/13/2024 07:14:00 180 Above high normal 70 -120 (mg/dL) Final Calcium 06/13/2024 07:14:00 9.5 8.4-10.2 ( mg/dL) Final Performing Location LABORATORY [facility] [place] - [address] [place] [address]
--- OUTSIDE RECORDS SUMMARY | 2024-08-21 14:12 | External Medical Summary ---
Author Name Unknown Address Unknown Organization K01:LABORATORY [facility] [place] - [address] [place] [address] Laboratory Report Ordering Provider Test Date Status SALO BECKMAN 06/11/2024 04:53:00 Final Observation Date Value Abnormality Reference (Units ) Status Troponin T 06/11/2024 04:53:00 19 Above high normal < =14 (ng/L) Final Performing Location LABORATORY [facility] [place] - [address] [place] [address]
--- OUTSIDE RECORDS SUMMARY | 2024-08-21 14:12 | External Medical Summary ---
Author Name Unknown Address Unknown Organization K01:LABORATORY [facility] [place] - [address] [facility] [address] Laboratory Report Ordering Provider Test Date Status SCOTT SCHAEFER 06/11/2024 04:53:00 Final Observation Date Value Abnormality Reference (Units ) Status Lactic Acid 06/11/2024 04:53:00 1.2 0.4-2.0 (mmol/L) Final Performing Location LABORATORY [facility] [place] - [address] [facility] [address]
--- OUTSIDE RECORDS SUMMARY | 2024-08-21 14:12 | External Medical Summary ---
Author Name Unknown Address Unknown Organization K01:LABORATORY [facility] [place] - [facility] [address] Laboratory Report Ordering Provider Test Date Status SCOTT SCHAEFER 06/11/2024 04:53:00 Final Observation Date Value Abnormality Reference (Units ) Status WBC, Total 06/11/2024 04:53:00 10.38 4.00-10.80 (K/uL) Final RBC 06/11/2024 04:53:00 4.08 3.85-5.15 (M/uL) Final Hemoglobin 06/11/2024 04:53:00 11.6 Below low normal 12.0-15.3 (g/dL) Final HCT 06/11/2024 04:53:00 36.3 36.0-45.2 (%) Final MCV 06/11/2024 04:53:00 89.0 81.5-97.5 (fL) Final MCH 06/11/2024 04:53:00 28.4 27.0-34.0 (pg) Final MCHC 06/11/2024 04:53:00 32.0 32.0-36.0 (g/dL) Final RDW 06/11/2024 04:53:00 17.1 11.5-15.5 (%) Final Platelets 06/11/2024 04:53:00 226 140-400 (K/uL) Final MPV 06/11/2024 04:53:00 10.9 6.6-11.1 (fL) Final Nucleated erythrocytes/100 leukocytes [Ratio] in Blood by Automated count 06/11/2024 04:53:00 0 <=0 (/100 WBCs) Final Performing Location LABORATORY [facility] [place] - [address] [facility] [address]
--- OUTSIDE RECORDS SUMMARY | 2024-08-21 14:12 | External Medical Summary | Summary of Care ---
Author Name Unknown Organization [facility] Address [address] [place] [address] Phone [phone] Care Team Providers Care Casino Dealer Name Role Phone Jag Kovacs MD Primary Care Provider Encounter Details Date Type Department Care Team (Late st Contact Info) Description 06/12/2024 Population Health External Data Unspecified Department Allergies [...] nuclear stress test 05/08/2016 06/12/2017 Overview: 05/04-at [place] card++++ B12 deficiency 08/12/2015 06/12/2017 Overview: b12-231, [...] 5 yrs-Mely. C scope 02/28/2010 Dr. Lynn, [place] internal hemorrhoid, normal colon, repeat 5 [...] 18 years and over) Not on file 3 Are you (or your family) darby eless [...] Description 06/13/2024 1:30 PM EDT Anticoagulation Pharmacy, [place] [address] [address] [address] Pharmacist1, [facility] [place] [address] [place] [address] [address] 07/02/2024 9:20 AM EDT Office Visit Neurosurgery, [address] [address] [facility] [place] [address] [place] [address] 08/28/2024 6:00 PM EDT Office Visit Family [address] [phone] Jag Kovacs MD [address] [place] [address] 09/11/2024 2:00 PM EDT Office Visit Podiatry, [facility] [address] [place], [place] [phone] Azul Nye [facility] [address] [place], [place] [phone] Scheduled Procedures Name Priority Associated Diagnoses Date/Ti [...] Directives occurred with: Not Discussed Care Teams Casino Dealer Relationship Specialty Start Date End Date Jag Kovacs MD [address] [phone] PCP - General Family Medicine 08/05/21 documented as of this encounter
--- OUTSIDE RECORDS SUMMARY | 2024-08-21 14:12 | External Medical Summary ---
Author Name Unknown Address Unknown Organization : Laboratory Report Ordering Provider Test Date Status GLADYS PAIGE 06/12/2024 11:38:49 Final Observation Date Value Abnormality Reference (Units ) Status Glucose Point of Care 06/12/2024 11:38:49 247 Above high normal 70-120 (mg/dL) Final Performing Location
--- OUTSIDE RECORDS SUMMARY | 2024-08-21 14:12 | External Medical Summary ---
Author Name Unknown Address Unknown Organization K01:LABORATORY [facility] [place] - [facility] [address] [facility] [address] Laboratory Report Ordering Provider Test Date Status SCOTT SCHAEFER 06/11/2024 04:53:00 Final Observation Date Value Abnormality Reference (Units ) Status BUN 06/11/2024 04:53:00 10 6-20 (mg/dL) Final Creatinine 06/11/2024 04:53:00 0.8 0.5-1.0 (mg/dL) Final Glomerular filtration rate/1.73 sq M.predicted [Volume Rate/Area] in Serum, Plasma or Blood by Creatinine-based formula (CKD-EPI) 06/11/2024 04:53:00 79 >=60 (mL/min) Final eGFR is calculated based on the CKD-EPI 2020 equation. Sodium 06/11/2024 04:53:00 136 135-146 (m mol/L) Final Potassium 06/11/2024 04:53:00 3.7 3.5-5.1 (m mol/L) Final Cl 06/11/2024 04:53:00 103 98-107 (mm ol/L) Final CO2 06/11/2024 04:53:00 21 Below low normal 22- 32 (mmol/L) Final Anion gap 06/11/2024 04:53:00 12 7-15 (mmol /L) Final Glucose 06/11/2024 04:53:00 119 70-120 (mg /dL) Final Calcium 06/11/2024 04:53:00 8.5 8.4-10.2 ( mg/dL) Final Performing Location LABORATORY [facility] - [address] [place] [address]
--- OUTSIDE RECORDS SUMMARY | 2024-08-21 14:12 | External Medical Summary ---
Author Name Unknown Address Unknown Organization K01:LABORATORY [facility] - [facility] [address] [facility] [address] Laboratory Report Ordering Provider Test Date Status SCOTT SCHAEFER 06/12/2024 05:58:00 Final Observation Date Value Abnormality Reference (Units ) Status Calcium.ionized [Moles/volume] in Serum or Plasma by Ion-selective membrane electrode (ISE) 06/12/2024 05:58:00 1.27 1.13-1.32 (mmol/L) Final This test was developed and its performance characteristics dtermined by [employer]. It has not been cleared or approved by the [place] Food and Drug Administration Performing Location LABORATORY [place] [address] [address] [facility] [address]
--- OUTSIDE RECORDS SUMMARY | 2024-08-21 14:12 | External Medical Summary ---
Author Name Unknown Address Unknown Organization K01:LABORATORY [facility] [place] - [address] [place] [address] [place] [address] Laboratory Report Ordering Provider Test Date Status SCOTT SCHAEFER 06/12/2024 05:58:00 Final Observation Date Value Abnormality Reference (Units ) Status Phosphate 06/12/2024 05:58:00 2.4 Below low normal 2.5 -4.8 (mg/dL) Final Performing Location LABORATORY [facility] - [address] [place] [address]
--- OUTSIDE RECORDS SUMMARY | 2024-08-21 14:12 | External Medical Summary ---
Author Name Unknown Address Unknown Organization K01:LABORATORY [facility] [place] - [facility] [address] [facility] [address] Laboratory Report Ordering Provider Test Date Status SCOTT SCHAEFER 06/12/2024 05:58:00 Final Observation Date Value Abnormality Reference (Units ) Status WBC, Total 06/12/2024 05:58:00 9.24 4.00-10.80 (K/uL) Final RBC 06/12/2024 05:58:00 4.22 3.85-5.15 (M/uL) Final Hemoglobin 06/12/2024 05:58:00 12.0 12.0-15.3 (g/dL) Final HCT 06/12/2024 05:58:00 37.0 36.0-45.2 (%) Final MCV 06/12/2024 05:58:00 87.7 81.5-97.5 (fL) Final MCH 06/12/2024 05:58:00 28.4 27.0-34.0 (pg) Final MCHC 06/12/2024 05:58:00 32.4 32.0-36.0 (g/dL) Final RDW 06/12/2024 05:58:00 17.2 11.5-15.5 (%) Final Platelets 06/12/2024 05:58:00 226 140-400 (K/uL) Final MPV 06/12/2024 05:58:00 10.3 6.6-11.1 (fL) Final Nucleated erythrocytes/100 leukocytes [Ratio] in Blood by Automated count 06/12/2024 05:58:00 0 <=0 (/100 WBCs) Final Performing Location LABORATORY [facility] - [address] [facility] [address]
--- OUTSIDE RECORDS SUMMARY | 2024-08-21 14:12 | External Medical Summary ---
Author Name Unknown Address Unknown Organization K01:LABORATORY [facility] [place] - [address] [place] [address] [place] [address] Laboratory Report Ordering Provider Test Date Status SCOTT SCHAEFER 06/11/2024 04:53:00 Final Observation Date Value Abnormality Reference (Units ) Status Phosphate 06/11/2024 04:53:00 2.4 Below low normal 2.5 -4.8 (mg/dL) Final Performing Location LABORATORY [facility] - [address] [place] [address]
--- OUTSIDE RECORDS SUMMARY | 2024-08-21 14:12 | External Medical Summary ---
Author Name Unknown Address Unknown Organization : Laboratory Report Ordering Provider Test Date Status GLADYS PAIGE 06/12/2024 08:10:18 Final Observation Date Value Abnormality Reference (Units ) Status Glucose Point of Care 06/12/2024 08:10:18 156 Above high normal 70-120 (mg/dL) Final Performing Location
--- OUTSIDE RECORDS SUMMARY | 2024-08-21 14:12 | External Medical Summary ---
Author Name Unknown Address Unknown Organization : Laboratory Report Ordering Provider Test Date Status GLADYS PAIGE 06/11/2024 11:43:30 Final Observation Date Value Abnormality Reference (Units ) Status Glucose Point of Care 06/11/2024 11:43:30 110 70-120 (mg/dL) Final Performing Location
--- OUTSIDE RECORDS SUMMARY | 2024-08-21 14:12 | External Medical Summary ---
Author Name Unknown Address Unknown Organization K01:LABORATORY [facility] - [address] [place] [address] Laboratory Report Ordering Provider Test Date Status SCOTT SCHAEFER 06/12/2024 05:58:00 Final Observation Date Value Abnormality Reference (Units ) Status Magnesium 06/12/2024 05:58:00 1.8 1.5-2.6 (m g/dL) Final Performing Location LABORATORY [facility] - [address] [place] [address]
--- OUTSIDE RECORDS SUMMARY | 2024-08-21 14:12 | External Medical Summary ---
Author Name Unknown Address Unknown Organization : Laboratory Report Ordering Provider Test Date Status GLADYS PAIGE 06/11/2024 17:56:06 Final Observation Date Value Abnormality Reference (Units ) Status Glucose Point of Care 06/11/2024 17:56:06 135 Above high normal 70-120 (mg/dL) Final Performing Location
--- OUTSIDE RECORDS SUMMARY | 2024-08-21 14:12 | External Medical Summary ---
Author Name Unknown Address Unknown Organization K01:[place] [place] [address] [place] [address] Laboratory Report Ordering Provider Test Date Status SCOTT SCHAEFER 06/11/2024 04:53:00 Final Observation Date Value Abnormality Reference (Units ) Status Magnesium 06/11/2024 04:53:00 1.4 Below low normal 1.5 -2.6 (mg/dL) Final Performing Location LABORATORY [facility] - [address] [place] [address]
--- OUTSIDE RECORDS SUMMARY | 2024-08-21 14:12 | External Medical Summary ---
Author Name Unknown Address Unknown Organization K01:LABORATORY [facility] [place] - [facility] [address] [facility] [address] Laboratory Report Ordering Provider Test Date Status SCOTT SCHAEFER 06/12/2024 05:58:00 Final Observation Date Value Abnormality Reference (Units ) Status BUN 06/12/2024 05:58:00 9 6-20 (mg/dL) Final Creatinine 06/12/2024 05:58:00 0.8 0.5-1.0 (mg/dL) Final Glomerular filtration rate/1.73 sq M.predicted [Volume Rate/Area] in Serum, Plasma or Blood by Creatinine-based formula (CKD-EPI) 06/12/2024 05:58:00 76 >=60 (mL/min) Final eGFR is calculated based on the CKD-EPI 2020 equation. Sodium 06/12/2024 05:58:00 139 135-146 (m mol/L) Final Potassium 06/12/2024 05:58:00 3.1 Below low normal 3.5 -5.1 (mmol/L) Final Cl 06/12/2024 05:58:00 102 98-107 (mm ol/L) Final CO2 06/12/2024 05:58:00 26 22-32 (mmo l/L) Final Anion gap 06/12/2024 05:58:00 11 7-15 (mmol /L) Final Glucose 06/12/2024 05:58:00 128 Above high normal 70 -120 (mg/dL) Final Calcium 06/12/2024 05:58:00 9.3 8.4-10.2 ( mg/dL) Final Performing Location LABORATORY [facility] [place] - [address] [facility] [address]
--- OUTSIDE RECORDS SUMMARY | 2024-08-21 14:12 | External Medical Summary ---
Author Name Unknown Address Unknown Organization K01:LABORATORY [facility] [place] - [facility] [address] [facility] [address] Laboratory Report Ordering Provider Test Date Status SCOTT SCHAEFER 06/11/2024 04:53:00 Final Observation Date Value Abnormality Reference (Units ) Status Calcium.ionized [Moles/volume] in Serum or Plasma by Ion-selective membrane electrode (ISE) 06/11/2024 04:53:00 1.14 1.13-1.32 (mmol/L) Final This test was developed and its performance characteristics dtermined by [employer]. It has not been cleared or approved by the [place] Food and Drug Administration Performing Location LABORATORY [place] [address] [address] [facility] [address]
--- OUTSIDE RECORDS SUMMARY | 2024-08-21 14:12 | External Medical Summary ---
Author Name Unknown Address Unknown Organization : Laboratory Report Ordering Provider Test Date Status GLADYS PAIGE 06/10/2024 23:58:21 Final Observation Date Value Abnormality Reference (Units ) Status Glucose Point of Care 06/10/2024 23:58:21 97 70-120 (mg/dL) Final Performing Location
--- OUTSIDE RECORDS SUMMARY | 2024-08-21 14:12 | External Medical Summary ---
Author Name Unknown Address Unknown Organization : Laboratory Report Ordering Provider Test Date Status GLADYS PAIGE 06/11/2024 21:54:58 Final Observation Date Value Abnormality Reference (Units ) Status Glucose Point of Care 06/11/2024 21:54:58 195 Above high normal 70-120 (mg/dL) Final Performing Location
--- OUTSIDE RECORDS SUMMARY | 2024-08-21 14:12 | External Medical Summary | Summary of Care ---
Author Name Unknown Organization [facility] Address [address] [place] [address] Phone [phone] Care Team Providers Care Content Administrator Name Role Phone Jag Kovacs MD Primary Care Provider Reason for Visit * Reason Comments Dizziness Weakness, Generalized * Auth/Cert Specialty Diagnoses / Procedures Referred By Contac t Referred To Contact [facility] [address] [place] [address] Phone: [phone] Emergency Medicine [facility] [address] [place] [address] Referral ID Status Reason Start Date Expiration Date Visits Re quested Visits Authorized [id number] Encounter Details Date Type Department Care Team (Late st Contact Info) Description 06/10/2024 4:18 PM EDT - 06/10/2024 7:16 PM EDT Emergency [facility] Emergency Department ([facility]) [address] [place] [address] Usha Marroquin DO [address] [place] [address] Intracranial hemorrhage (HCC) (Primary Dx) Discharge Disposition: Short Term Hospital Allergies Active Allergy Reactions Criticality Noted Date Comments Diphenhydramine 09/03/2018 Epinephrine Other (Please comment) 07/03/2023 Propranolol Hcl 09/29/2010 "TIA" - like reactions Lisinopril Cough 08/04/2008 Mepivacaine Hcl 06/30/2008 With epi: whole face sagged Simvastatin 12/25/2012 Myalgia-nl CK documented as of this encounter (statuses as of 06/11/2024) Medications Medication Sig Dispensed Refills Start Date End Date Status PENELOPE PORTILLOFRANCISCO TIFFANIE MISCIndications:DM type 2, goal A1c below 7 [...] as of this encounter (statuses as of 06/11/2024) Active Problems Problem Noted Date Diagnosed Date Complete heart block 08/03/2023 Hemiplegia, 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 08/26--cardiac CT--neg .(stress [...] as of this encounter (statuses as of 06/11/2024) Resolved Problems Problem Noted Date Diagnosed Date [...] nuclear stress test 05/08/2016 06/12/2017 Overview: 05/04-at [place] card++++ B12 deficiency 08/12/2015 06/12/2017 Overview: [id number], [...] 5 yrs-Mely. C scope 02/28/2010 Dr. Lynn, [place] internal hemorrhoid, normal colon, repeat 5 years [...] as of this encounter (statuses as of 06/11/2024) Immunizations Name Administration Dates Next Due PPD [...] Sign Reading Time Taken Comments Blood Pressure 145/75 06/10/2024 6:23 PM EDT Pulse 82 06/10/2024 6:23 PM EDT Temperature 36.2 C (97.2 F) 06/10/2024 4:07 PM ED T Respiratory Rate 16 06/10/2024 6:23 PM EDT Oxygen Saturation 95% 06/10/2024 6:23 PM EDT Inhaled Oxygen Concentration - - Weight 79.8 kg (176 lb) 06/10/2024 4:07 PM EDT Height 147.3 cm (4' 10") 06/10/2024 4:07 PM EDT Body Mass Index 36.78 06/10/2024 4:07 PM EDT documented in this encounter Functional [...] No 11/29/2022 documented as of this encounter Nursing Notes * Joy Pritchard RN - 06/10/2024 4:53 PM EDT 1618 Assumed care of pt. 1621 Pt assisted to bed and placed on continuous cardiac monitoring and pulse oximetry. C-collar applied. Pt states she fell Sunday. Slipped on water outside the bathtub and fell onto side of tub. Landed on her back on the side of the tub causing pain to lower back. Denies LOC. Unsure if she hit her head. Pt is on coumadin. Hx of stroke. [address] with RN. [address] with RN. Pt resting in bed on continuous cardiac monitoring and pulse oximetry. Call villalba at bedside. Will monitor. 1735 c-collar removed per Dr. Marroquin. Pt resting quietly in bed. Resp unlabored. 181 IV in LAC doesn't flush. Removed intact. Site appears without complications. New IV started KARINA Tristan. 183 medicated per jan. 1899 report given to Delbert Alejandra, softball umpire [facility]. 1911 report given to Tayla, nurse at [facility]. 1914 pt left ED with [facility]. documented in this encounter ED Notes * Usha Marroquin, - 06/10/2024 4:27 PM EDT HISTORY OF PRESENT ILLNESS Alka Lawson is a 84 year old female who presents to the ED for evaluation of Dizziness and Weakness, Generalized. The patient was seen at 06/10/24 1619. Alert type: Adult Trauma - Level 2 Trauma Evaluation: Pre-hospital notification: No Mechanism of injury: fall Time since injury: 2 days Arrival method: Private vehicle Primary survey: airway normal, breath sounds normal, equal chest rise, pulses present in all extremities, no active bleeding, no focal deficit, alert and oriented and fully exposed Cervical spine assessment: C-collar placed by ED Chest x-ray preliminary findings: Negative Dizziness Weakness, Generalized Associated symptoms: dizziness Review of Systems Neurological: Positive for dizziness. Chief complaint: Fall Pertinent PMHx: Atrial fibrillation, CVA, hypertension, type 2 diabetes, hyperlipidemia, Coumadin use Onset of chief complaint: 2 days ago Associated symptoms: Vomiting, back pain, left-sided neck pain Relieving factors: None Exacerbating factors: Movement Additional info: Patient was fell in shower 2 days ago. Fell flat on back. Has had worsening back pain since then as well as 1 episode of vomiting yesterday evening. Has been unsteady on her feet since then. Denies any associated fevers, chills, headache, vision changes, chest pain, shortness of breath, cough, abdominal pain, diarrhea, urinary symptoms, focal weakness, or numbness. The patient's allergies, past history, and medications were reviewed. PHYSICAL EXAM Initial Vitals (see all): BP 149/70 | Pulse 92 | Resp 20 | Temp 97.2 | O2 100 %, Room Air, None | Weight 79.83 kg | Height 147.3 cm | BMI 36.78 kg/m2 Initial Pain Assessment (see all): 0 (no pain)/102/10 ([facility] Adult Scale 0-10) Physical Exam Vitals and nursing note reviewed. Constitutional: General: She is not in acute distress. Appearance: She is well-developed. HENT: Head: Normocephalic and atraumatic. Right Ear: Tympanic membrane, ear canal and external ear normal. Left Ear: Tympanic membrane, ear canal and external ear normal. Ears: Comments: No hemotympanum Nose: Nose normal. No rhinorrhea. Comments: No septal hematoma Mouth/Throat: Mouth: Mucous membranes are moist. Pharynx: Oropharynx is clear. No posterior oropharyngeal erythema. Eyes: Extraocular Movements: Extraocular movements intact. Conjunctiva/sclera: Conjunctivae normal. Pupils: Pupils are equal, round, and reactive to light. Comments: 3 mm and reactive bilaterally Neck: Comments: C-collar in place Cardiovascular: Rate and Rhythm: Normal rate and regular rhythm. Heart sounds: No murmur heard. Pulmonary: Effort: Pulmonary effort is normal. No respiratory distress. Breath sounds: Normal breath sounds. No stridor. No wheezing, rhonchi or rales. Abdominal: General: There is no distension. Palpations: Abdomen is soft. Tenderness: There is no abdominal tenderness. There is no right CVA tenderness, left CVA tenderness, guarding or rebound. Musculoskeletal: General: No swelling. Cervical back: Tenderness (Left lateral) present. Comments: Midline lumbar tenderness palpation; no midline thoracic tenderness palpation; full painless range of motion of bilateral upper and lower extremities; pelvis stable Skin: General: Skin is warm and dry. Capillary Refill: Capillary refill takes less than 2 seconds. Neurological: General: No focal deficit present. Mental Status: She is alert and oriented to person, place, and time. Sensory: No sensory deficit. Motor: No weakness. Deep Tendon Reflexes: Reflexes normal. Psychiatric: Mood and Affect: Mood normal. PROCEDURES AND TREATMENTS ED Orders | ED Results MEDICAL DECISION MAKING Nursing notes and vital signs were reviewed. ED Course as of 06/10/241920Jun 10, 20241626 Patient was evaluated. Afebrile and hemodynamically stable. Fell 2 days ago while in shower. Landed on back. Has back and neck pain. Vomited once yesterday evening. Is on Coumadin. Trauma alert on arrival. CT imaging and x-ray ordered. Laboratory studies pending. [AH] 1732 Lactate, Whole Blood(!!): 4.5 [AH] 1742 INR(!): 1.6 [] 1742 CT head/brain imaging concerning for posttraumatic hemorrhage. Kcentra ordered [] 1750 INR returned at 1.6. Lactate elevated at 4.5. Reportedly vomited once. Additional laboratory studies pending. Discussed with transfer Cerbr[facility]ni and patient was accepted to [facility] ED for transfer. Remainder of CT trauma scans negative and C-spine cleared at bedside with no ongoing midline neck pain. 500 mL of IV fluids ordered given elevated lactate though no other clear sourceat this time. EMTALA completed. [] ED Course User Index [] Usha Marroquin DO Differential Diagnoses Based on my history, physical exam, and evaluation, the differential includes, but is not limited, to the following diagnoses: Intracranial hemorrhage, skull fracture, C-spine injury, intra-abdominalinjury, vertebral fracture. Amount and/or Complexity of Data Reviewed Labs: ordered. Decision-making details documented in ED Course. Radiology: ordered. Risk Prescription drug management. Clinical Impressions Intracranial hemorrhage (HCC) Disposition Transferred. The patient's condition at disposition was: stable. Comments ED Disposition Transferred Comment -- Usha Marroquin * Azul Douglas RN - 06/10/2024 4:09 PM EDT [facility] living. Pt complains of being unsteady on feet that started several days ago and emesis x 1 last evening. Pt's daughter reports she has fallen on Sunday night getting out of shower and EMS came to assist her up. She was not evaluated in ER at that time. Daughter reports a rehab nurse recommends she be evaluated. documented in this encounter Plan of Treatment Upcoming Encounters Date Type Department Care Team (Late st Contact Info) Description 06/13/2024 1:30 PM EDT Anticoagulation Pharmacy, [address] [place] [phone] Pharmacist1, [facility] [address] [place] [id number] 08/28/2024 6:00 PM EDT Office Visit [facility] [address] [place] [phone] Jag Kovacs MD [address] [place] [address] 09/11/2024 2:00 PM EDT Office Visit Podiatry, [facility] [address] [place] [address] Azul Nye DPM [address] [place] [address] Scheduled Orders Name Type Priority Associated Diagnoses Orde r Schedule TOXICOLOGY, URINESCREEN W/ CONFIRMATION Lab STAT Perform Now for 1 Occurrences starting 06/10/2024 until 06/10/2024 URINALYSIS, REFLEX TO MICROSCOPIC Lab STAT One Time for 1 Occurrences starting 06/10/2024 until 06/10/2024 PT INR Lab Routine One Time for 1 Occurrences starting 06/10/2024 until 06/10/2024 CBC Lab STAT One Time for 1 Occurrences starting 06/10/2024 until 06/10/2024 Scheduled Procedures Name Priority Associated Diagnoses Date/Ti [...] 12/08/2022, Additional history exists HbA1c 06/12/2024 12/13/2023, 07/11/2022, 12/05/2022, Additional history exists Depression Screening 06/20/2024 06/20/2023 Influenza Vaccine (FLU shot) (#1) 2024 08/03/2023, 09/13/2022, 11/07/2021, Additional history exists Diabetic Foot Exam 02/06/2025 02/07/2024, 0 02/14/2023, 05/04/2022, Additional history exists Diabetic Eye Exam 03/17/2025 03/17/2024, , 03/16/2023, Additional history exists GFR 06/11/2025 06/11/2024, 05/20, 06/10/2024, Additional history exists DXA Scan [...] Procedure Name Priority Date/Time Associated Diagnosis Comments COMPREHENSIVE METABOLIC PANEL STAT 06/10/2024 5:18 PM EDT PT INR STAT 06/10/2024 5:18 PM EDT LACTATE,WHOLE BLOOD STAT 06/10/2024 5 :18 PM EDT ETHANOL, MEDICAL STAT 06/10/2024 5:18 PM EDT DIFFERENTIAL, AUTOMATED STAT 06/10/2024 5:17 PM EDT TYPE AND SCREEN STAT 06/10/2024 5:17 PM EDT CBC STAT 06/10/2024 5:17 PM EDT CBC STAT 06/10/2024 5:17 PM EDT XR CHEST 1 VIEW STAT 06/10/2024 5:[address] ABD/PELVIS W IV CONTRAST - WO ORAL CONTRAST STAT 06/10/2024 4:[address] C SPINE WO CONTRAST STAT 4:[address] CHEST W CONTRAST STAT 06/10/2024 4 [address] HEAD/BRAIN WO CONTRAST STAT 06/10/2024 4:52 PM EDT documented in this encounter Results * (ABNORMAL) PT INR (06/10/2024 5:18 PM EDT) [facility] Prothrombin Time 19.3(H) 11.6 - 15.2 seconds 06/10/2024 5:41 PM EDT LAB[facility]AT[facility] INR 1.6(H) 0.8 - 1.2 06/10/2024 5:41 PM EDT [facility] Blood Venous blood specimen / Unknown Venipuncture / Unknown 06/10/2024 5:18 PM EDT 06/10/2024 5:22 PM EDT Narrative LABORATORY GL - 06/10/2024 5:41 PM EDT Warfarin Therapy INR: 2.0-3.0 conventional anticoagulation INR: 2.5-3.5 high intensity anticoagulation Usha Marroquin DO LAB BLOOD ORDERABLES LABORATORY [address] [address] * (ABNORMAL) LACTATE,WHOLE BLOOD (06/10/2024 5:18 PM EDT) Pathologist [facility] Lactate, Whole Blood 4.5(HH) 0.4 - 2.0 mmol/L 06/10/2024 5:28 PM EDT LABORATORY [facility] Blood Venous blood specimen / Unknown Venipuncture / Unknown 06/10/2024 5:18 PM EDT 06/10/2024 5:22 PM EDT Usha Marroquin DO LAB BLOOD ORDERABLES LAB[facility]ATORY [facility] [address] [place] [address] * ETHANOL, MEDICAL (06/10/2024 5:18 PM EDT) [facility] ETHANOL, MEDICAL Negative Negative 06/10/2024 5:51 PM EDT LABORATORY GL Blood Venous blood specimen / Unknown Venipuncture / Unknown 06/10/2024 5:18 PM EDT 06/10/2024 5:22 PM EDT Usha Marroquin LAB BLOOD ORDERABLES Performing Organization Address City/[facility]/ZIP Co de Phone Number LABORATORY [address] [address] * (ABNORMAL) COMPREHENSIVE METABOLIC PANEL (06/10/2024 5:18 PM EDT) [facility] BUN 17 6 - 20 mg/dL 06/10/2024 5:51 PM EDT LABORATORY [facility] Creatinine 1.0 0.5 - 1.0 mg/dL 06/10/2024 5:51 PM EDT LAB[facility] Estimated Glomerular Filtration Rate 60 >=60 mL/min 06/10/2024 5:51 PM EDT [facility] Comment:eGFR is calculated b ased on the CKD-EPI 2020 equation. Sodium 136 135 - 146 mmol/L 06/10/2024 5:51 PM EDT LAB[facility] Potassium 3.2(L) 3.5 - 5.1 mmol/L 06/10/2024 5:51 PM EDT [facility] Chloride 95(L) 98 - 107 mmol/L 06/10/2024 5:51 PM EDT [facility] CO2 25 22 - 32 mmol/L 06/10/2024 5:51 PM EDT [facility] Anion Gap 16(H) 7 - 15 mmol/L 06/10/2024 5:51 PM EDT [facility] Glucose 143(H) 70 - 120 mg/dL 06/10/2024 5:51 PM EDT LAB[facility] Albumin 3.9 3.8 - 5.0 g/dL 06/10/2024 5:51 PM EDT [facility] AST 15 10 - 35 U/L 06/10/2024 5:51 PM EDT [facility] Alkaline Phosphatase 60 35 - 130 U/L 06/10/2024 5:51 PM EDT [facility] Bilirubin, Total 0.5 <=1.2 mg/dL 06/10/2024 5:51 PM EDT [facility] Calcium 9.2 8.4 - 10.2 mg/dL 06/10/2024 5:51 PM EDT [facility] Protein 6.9 6.0 - 8.3 g/dL 06/10/2024 5:51 PM EDT [facility] ALT 16 10 - 35 U/L 06/10/2024 5:51 PM EDT [facility] Blood Venous blood specimen / Unknown Venipuncture / Unknown 06/10/2024 5:18 PM EDT 06/10/2024 5:22 PM EDT Usha aMrroquin LAB BLOOD ORDERABLES LABORATORY [address] [address] * (ABNORMAL) DIFFERENTIAL, AUTOMATED (06/10/2024 5:17 PM EDT) WBC 11.69(H) 4.00 - 10.80 K/uL 06/10/2024 5:26 PM EDT LAB[facility] Neutrophils % 61.9 40.0 - 75.0 % 06/10/2024 5:26 PM EDT LAB[facility] Lymphocytes % 25.1 18.0 - 42.0 % 06/10/2024 5:26 PM EDT [facility] Monocytes % 11.9(H) 1.0 - 11.0 % 06/10/2024 5:26 PM EDT LABORATORY GL Eosinophils % 0.3 0.0 - 6.0 % 06/10/2024 5:26 PM EDT LABORATORY GL Basophils % 0.3 0.0 - 2.0 % 06/10/2024 5:26 PM EDT [facility] Immature Granulocytes % 0.5 0.0 - 2.0 % 06/10/2024 5:26 PM EDT [facility] Absolute Neutrophils 7.23 1.80 - 7.70 K/uL 06/10/2024 5:26 PM EDT LABORATORY GL Absolute Lymphocytes 2.93 1.00 - 4.80 K/ul 06/10/2024 5:26 PM EDT [facility] Absolute Monocytes 1.39(H) 0.00 - 1.10 K/uL 06/10/2024 5:26 PM EDT [facility] Absolute Eosinophils 0.04 0.00 - 0.70 K/uL 06/10/2024 5:26 PM EDT [facility] Absolute Basophils 0.04 0.00 - 0.20 K/uL 06/10/2024 5:26 PM EDT [facility] Absolute Immature Granulocytes 0.06 0.00 - 0.20 K/uL 06/10/2024 5:26 PM EDT [facility] Blood Venous blood specimen / Unknown Venipuncture / Unknown 06/10/2024 5:17 PM EDT 06/10/2024 5:22 PM EDT Usha Marroquin DO LAB BLOOD ORDERABLES LABORATORY [address] [address] * (ABNORMAL) CBC (06/10/2024 5:17 PM EDT) Pathologist [facility] WBC 11.69(H) 4.00 - 10.80 K/uL 06/10/2024 5:26 PM EDT [facility] RBC 4.38 3.85 - 5.15 M/uL 06/10/2024 5:26 PM EDT [facility] HGB 12.5 12.0 - 15.3 g/dL 06/10/2024 5:26 PM EDT [facility] HCT 38.5 36.0 - 45.2 % 06/10/2024 5:26 PM EDT [facility] MCV 87.9 81.5 - 97.5 fL 06/10/2024 5:26 PM EDT [facility] MCH 28.5 27.0 - 34.0 pg 06/10/2024 5:26 PM EDT [facility] MCHC 32.5 32.0 - 36.0 g/dL 06/10/2024 5:26 PM EDT [facility] RDW 17.0 11.5 - 15.5 % 06/10/2024 5:26 PM EDT [facility] PLT 235 140 - 400 K/uL 06/10/2024 5:26 PM EDT [facility] MPV 10.1 6.6 - 11.1 fL 06/10/2024 5:26 PM EDT [facility] nRBCs 0 <=0 /100 WBCs 06/10/2024 5:26 PM EDT [facility] Blood Venous blood specimen / Unknown Venipuncture / Unknown 06/10/2024 5:17 PM EDT 06/10/2024 5:22 PM EDT Usha MILTON BLOOD ORDERABLES LABORATORY [address] [address] * TYPE AND SCREEN (06/10/2024 5:17 PM EDT) ABO O 06/10/2024 6:08 PM EDT [facility] BLOOD BANK Rh Negative 06/10/2024 6:08 PM EDT [facility] BLOOD BANK Red Blood Cell Antibody Screen Negative 06/10/2024 6:08 PM EDT [facility] BLOOD BANK Specimen Expiration Date 06/13/2024 23:59 06/10/2024 6:08 PM EDT [facility] BLOOD BANK Blood Venous blood specimen / Unknown Venipuncture / Unknown 06/10/2024 5:17 PM EDT 06/10/2024 5:22 PM EDT Usha Marroquin LAB BLOOD BANK TEST ORDERABLES [facility]AT[facility] BLOOD BANK [address] [place] [address] * XR CHEST 1 VIEW (06/10/2024 5:00 PM EDT) Anatomical Region Laterality Modality Chest Digital Radiogra phy 06/10/2024 4:28 PM EDT Impressions 06/10/2024 5:12 PM EDT IMPRESSION: Slightly decreased lung volumes. No focal consolidation. THIS DOCUMENT HAS BEEN ELECTRONICALLY SIGNED BY CHRIST MCKEON MD Narrative 06/10/2024 5:12 PM EDT PROCEDURE INFORMATION: Exam: XR Chest Exam date and time: 06/10/2024 4:28 PM Age: 84 years old Clinical indication: Other: Fall on blood thinners. ; Additional info: Trauma TECHNIQUE: Imaging protocol: Radiologic exam of the chest. Views: 1 view. COMPARISON: CR XR RIBS UNILATERAL W/PA CHEST MINIMUM 3 VIEWS 04/19/2023 3:48 PM FINDINGS: Tubes, catheters and devices: Multiple monitoring leads projecting over the field of view. Lungs: Low lung volumes.No air bronchograms or focal consolidation identified. Pleural spaces: Unremarkable. No pleural effusion. No pneumothorax. Heart/Mediastinum: Unremarkable. No cardiomegaly. Bones/joints: There are moderate degenerative changes present. Procedure Note Christ Mckeon MD - 06/10/2024 PROCEDURE INFORMATION: Exam: XR Chest Exam date and time: 06/10/2024 4:28 PM Age: 84 years old Clinical indication: Other: Fall on blood thinners. ; Additional info:Trauma TECHNIQUE: Imaging protocol: Radiologic exam of the chest. Views: 1 view. COMPARISON: CR XR RIBS UNILATERAL W/PA CHEST MINIMUM 3 VIEWS 04/19/2023 3:48 PM FINDINGS: Tubes, catheters and devices: Multiple monitoring leads projecting overthe field of view. Lungs: Low lung volumes.No air bronchograms or focal consolidationidentified. Pleural spaces: Unremarkable. No pleural effusion. No pneumothorax. Heart/Mediastinum: Unremarkable. No cardiomegaly. Bones/joints: There are moderate degenerative changes present. IMPRESSION IMPRESSION: Slightly decreased lung volumes. No focal consolidation. THIS DOCUMENT HAS BEEN ELECTRONICALLY SIGNED BY CHRIST MCKEON MD Usha Marroquin RADIOLOGY (RAD GENER AL) * CT ABD/PELVIS W IV CONTRAST - WO ORAL CONTRAST (06/10/2024 4:52 PM EDT) Anatomical Region Laterality Modality Body, Abdomen, Pelvis Computed T omography 06/10/2024 4:44 PM EDT Impressions 06/10/2024 5:11 PM EDT IMPRESSION: 1. No acute posttraumatic abnormality 2. [...] of the wall. Mild colitis not excluded. Appendix: No evidence of appendicitis. Intraperitoneal space: [...] BEEN ELECTRONICALLY SIGNED BY CHRIST MCKEON MD Narrative 06/10/2024 5:11 PM EDT PROCEDURE INFORMATION: Exam: CT Chest With Contrast; Diagnostic Exam date and time: 06/10/2024 4:44 PM Age: 84 years old Clinical indication: Other: Significant trauma with possible severe intraabdominal injury or abdominal pain TECHNIQUE: Imaging protocol: Diagnostic computed tomography of the chest with contrast. Radiation optimization: All CT scans at this facility use at least one of these dose optimization techniques: automated exposure control; mA and/or kV adjustment per patient size (includes targeted exams where dose is matched to clinical indication); or iterative reconstruction. Contrast material: ISOVUE 370; Contrast volume: 80 ml; Contrast route: INTRAVENOUS (IV); COMPARISON: CT CHEST WO CONTRAST 12/04/2022 11:17 PM FINDINGS: Lungs: There is subpleural atelectasis of the dependent portions of the lungs. There is poor ventilation of the lungs, accounting for mild diffuse increase in pulmonary parenchymal density. Pleural spaces: Unremarkable. No pneumothorax. No pleural effusion. Heart: Unremarkable. No cardiomegaly. No pericardial effusion. Lymph nodes: Unremarkable. No enlarged lymph nodes. Vasculature: Unremarkable. No aortic aneurysm. Bones/joints: Unremarkable. No acute fracture. Soft tissues: Unremarkable. Other findings: Breathing artifact limits evaluation somewhat. Procedure Note Christ Mckeon MD - 06/10/2024 PROCEDURE INFORMATION: Exam: CT Chest With Contrast; Diagnostic Exam date and time: 06/10/2024 4:44 PM Age: 84 years old Clinical indication: Other: Significant trauma with possible severe intraabdominal injury or abdominal pain TECHNIQUE: Imaging protocol: Diagnostic computed tomography of the chest withcontrast. Radiation optimization: All CT scans at this facility use at least one ofthese dose optimization techniques: automated exposure control; mA and/or kV adjustment per patient size (includes targeted exams where dose is matchedto clinical indication); or iterative reconstruction. Contrast material: ISOVUE 370; Contrast volume: 80 ml; Contrast route: INTRAVENOUS (IV); COMPARISON: CT CHEST WO CONTRAST 12/04/2022 11:17 PM FINDINGS: Lungs: There is subpleural atelectasis of the dependent portions of thelungs. There is poor ventilation of the lungs, accounting for mild diffuseincrease in pulmonary parenchymal density. Pleural spaces: Unremarkable. No pneumothorax. No pleural effusion. Heart: Unremarkable. No cardiomegaly. No pericardial effusion. Lymph nodes: Unremarkable. No enlarged lymph nodes. Vasculature: Unremarkable. No aortic aneurysm. Bones/joints: Unremarkable. No acute fracture. Soft tissues: Unremarkable. Other findings: Breathing artifact limits evaluation somewhat. IMPRESSION IMPRESSION: 1. No acute posttraumatic abnormality 2. Low lung volumes with atelectasis PROCEDURE INFORMATION: Exam: CT Abdomen And Pelvis With Contrast Exam date and time: 06/10/2024 4:44 PM Age: 84 years old Clinical indication: Other: Significant trauma with possible severe intraabdominal injury or abdominal pain TECHNIQUE: Imaging protocol: Computed tomography of the abdomen and pelvis withcontrast. Radiation optimization: All CT scans at this facility use at least one ofthese dose optimization techniques: automated exposure control; mA and/or kV adjustment per patient size (includes targeted exams where dose is matchedto clinical indication); or iterative reconstruction. Contrast material: ISOVUE 370; Contrast volume: 80 ml; Contrast route: INTRAVENOUS (IV); COMPARISON: CT ABD/PELVIS WO IV/ORAL CONTRAST 04/14/2022 2:11 PM FINDINGS: Lungs: No acute abnormality. Liver: Normal. No mass. Gallbladder and biliary ducts: Normal. No calcified stones. No ductaldilation. Pancreas: Normal. No ductal dilation. Spleen: Normal. No splenomegaly. Adrenal glands: Normal. No mass. Kidneys and ureters: Normal. No hydronephrosis. Stomach and bowel: Fluid-filled nonspecific loops of small bowel. Colon is collapsed, accentuating appearance of the wall. Mild colitis not excluded. Appendix: No evidence of appendicitis. Intraperitoneal space: Unremarkable. No free air. No significant fluid collection. Vasculature: Aortic ectasia and aorta iliac atherosclerosis is present.There are numerous benign phleboliths in the pelvis. Lymph nodes: Unremarkable. No enlarged lymph nodes. Urinary bladder: There is mild bladder wall thickening consistent with incomplete distension, chronic outflow obstruction, or cystitis. Reproductive: Unremarkable as visualized. Bones/joints: L1 compression deformity was present on previous study [id number] , and appears old. Soft tissues: Unremarkable. IMPRESSION: 1. L1 compression deformity was present on previous study from 2022 ,and appears old. 2. Colon is collapsed, accentuating appearance of the wall. Mild colitisnot excluded. THIS DOCUMENT HAS BEEN ELECTRONICALLY SIGNED BY CHRIST MCKEON MD Usha Marroquin DO RAD CT * CT CHEST W CONTRAST (06/10/2024 4:52 PM EDT) Anatomical Region Laterality Modality Chest, Body, Cardio Computed Edson ography 06/10/2024 4:4 4 PM EDT Impressions 06/10/2024 5:11 PM EDT IMPRESSION: 1. No acute posttraumatic abnormality 2. [...] of the wall. Mild colitis not excluded. Appendix: No evidence of appendicitis. Intraperitoneal space: [...] BEEN ELECTRONICALLY SIGNED BY CHRIST MCKEON MD Narrative 06/10/2024 5:11 PM EDT PROCEDURE INFORMATION: Exam: CT Chest With Contrast; Diagnostic Exam date and time: 06/10/2024 4:44 PM Age: 84 years old Clinical indication: Other: Significant trauma with possible severe intraabdominal injury or abdominal pain TECHNIQUE: Imaging protocol: Diagnostic computed tomography of the chest with contrast. Radiation optimization: All CT scans at this facility use at least one of these dose optimization techniques: automated exposure control; mA and/or kV adjustment per patient size (includes targeted exams where dose is matched to clinical indication); or iterative reconstruction. Contrast material: ISOVUE 370; Contrast volume: 80 ml; Contrast route: INTRAVENOUS (IV); COMPARISON: CT CHEST WO CONTRAST 12/04/2022 11:17 PM FINDINGS: Lungs: There is subpleural atelectasis of the dependent portions of the lungs. There is poor ventilation of the lungs, accounting for mild diffuse increase in pulmonary parenchymal density. Pleural spaces: Unremarkable. No pneumothorax. No pleural effusion. Heart: Unremarkable. No cardiomegaly. No pericardial effusion. Lymph nodes: Unremarkable. No enlarged lymph nodes. Vasculature: Unremarkable. No aortic aneurysm. Bones/joints: Unremarkable. No acute fracture. Soft tissues: Unremarkable. Other findings: Breathing artifact limits evaluation somewhat. Procedure Note Christ Mckeon MD - 06/10/2024 PROCEDURE INFORMATION: Exam: CT Chest With Contrast; Diagnostic Exam date and time: 06/10/2024 4:44 PM Age: 84 years old Clinical indication: Other: Significant trauma with possible severe intraabdominal injury or abdominal pain TECHNIQUE: Imaging protocol: Diagnostic computed tomography of the chest withcontrast. Radiation optimization: All CT scans at this facility use at least one ofthese dose optimization techniques: automated exposure control; mA and/or kV adjustment per patient size (includes targeted exams where dose is matchedto clinical indication); or iterative reconstruction. Contrast material: ISOVUE 370; Contrast volume: 80 ml; Contrast route: INTRAVENOUS (IV); COMPARISON: CT CHEST WO CONTRAST 12/04/2022 11:17 PM FINDINGS: Lungs: There is subpleural atelectasis of the dependent portions of thelungs. There is poor ventilation of the lungs, accounting for mild diffuseincrease in pulmonary parenchymal density. Pleural spaces: Unremarkable. No pneumothorax. No pleural effusion. Heart: Unremarkable. No cardiomegaly. No pericardial effusion. Lymph nodes: Unremarkable. No enlarged lymph nodes. Vasculature: Unremarkable. No aortic aneurysm. Bones/joints: Unremarkable. No acute fracture. Soft tissues: Unremarkable. Other findings: Breathing artifact limits evaluation somewhat. IMPRESSION IMPRESSION: 1. No acute posttraumatic abnormality 2. Low lung volumes with atelectasis PROCEDURE INFORMATION: Exam: CT Abdomen And Pelvis With Contrast Exam date and time: 06/10/2024 4:44 PM Age: 84 years old Clinical indication: Other: Significant trauma with possible severe intraabdominal injury or abdominal pain TECHNIQUE: Imaging protocol: Computed tomography of the abdomen and pelvis withcontrast. Radiation optimization: All CT scans at this facility use at least one ofthese dose optimization techniques: automated exposure control; mA and/or kV adjustment per patient size (includes targeted exams where dose is matchedto clinical indication); or iterative reconstruction. Contrast material: ISOVUE 370; Contrast volume: 80 ml; Contrast route: INTRAVENOUS (IV); COMPARISON: CT ABD/PELVIS WO IV/ORAL CONTRAST 04/14/2022 2:11 PM FINDINGS: Lungs: No acute abnormality. Liver: Normal. No mass. Gallbladder and biliary ducts: Normal. No calcified stones. No ductaldilation. Pancreas: Normal. No ductal dilation. Spleen: Normal. No splenomegaly. Adrenal glands: Normal. No mass. Kidneys and ureters: Normal. No hydronephrosis. Stomach and bowel: Fluid-filled nonspecific loops of small bowel. Colon is collapsed, accentuating appearance of the wall. Mild colitis not excluded. Appendix: No evidence of appendicitis. Intraperitoneal space: Unremarkable. No free air. No significant fluid collection. Vasculature: Aortic ectasia and aorta iliac atherosclerosis is present.There are numerous benign phleboliths in the pelvis. Lymph nodes: Unremarkable. No enlarged lymph nodes. Urinary bladder: There is mild bladder wall thickening consistent with incomplete distension, chronic outflow obstruction, or cystitis. Reproductive: Unremarkable as visualized. Bones/joints: L1 compression deformity was present on previous study [id number] , and appears old. Soft tissues: Unremarkable. IMPRESSION: 1. L1 compression deformity was present on previous study from 2022 ,and appears old. 2. Colon is collapsed, accentuating appearance of the wall. Mild colitisnot excluded. THIS DOCUMENT HAS BEEN ELECTRONICALLY SIGNED BY CHRIST MCKEON MD Usha Marroquin DO RAD CT * CT C SPINE WO CONTRAST (06/10/2024 4:52 PM EDT) Anatomical Region Laterality Modality Cspine, Spine, Neck, Vertebra Co mputed Tomography 06/10/2024 5:34 PM EDT Impressions 06/10/2024 5:32 PM EDT IMPRESSION 1. CT head shows small amount of hemorrhage settling in the dependent portion of the right occipital horn, and increased density of the left occipital choroid plexus indeterminate for choroid plexus hemorrhage versus progression of choroid calcifications since prior exam. 2. Otherwise, CT head shows chronic findings, including intracranial atherosclerosis, cerebral volume loss and patchy lucency in the bilateral cerebral [...] at approximately 5:31 pm, by secure text. Narrative 06/10/2024 5:[address] HEAD/BRAIN WO CONTRAST; CT C SPINE WO CONTRAST - 06/10/2024 4:52 pm HISTORY significant trauma with possible severe neurologic injury or head pain; significant trauma with possible severe neurologic injury or neck pain COMPARISON Prior CT head exam from 12/04/2022 TECHNIQUE Axial images obtained through the head and cervical spine. Sagittal and coronal reconstructed images are also provided. No contrast was administered for these exams. FINDINGS CT HEAD: There is a small volume of layering hemorrhage in the dependent portion of the right lateral ventricle. There is also increased density of the left choroid plexus since prior exam, indeterminate for acute hemorrhage versus progression of choroid plexus calcifications. Arterial calcifications are present in the proximal intracranial vessels, consistent with intracranial atherosclerosis. There is patchy lucency in the bilateral cerebral white matter, most commonly representing chronic small vessel ischemic change. There is diffuse cerebral volume loss, and considering this the ventricles are of normal size and contour. Increased density of the left choroid plexus since prior exam indeterminate for acute hemorrhage versus progression of choroid plexus calcifications. No abnormal extra-axial fluid is appreciated. The basilar cisterns are clear. There is no midline or downward shift. Midline structures appear normally developed and positioned. The craniocervical junction appears normal. No acute paranasal sinus disease is seen. The mastoid air cells are grossly clear. The visualized portions of the orbits and facial soft tissues show no acute abnormality. No acute osseous lesion is detected. Hearing device in place over the left pinna. CT CERVICAL SPINE: No fracture is appreciated. There are multilevel degenerative changes of the cervical spine including disc flattening, endplate osteophytosis, and arthropathy of the uncovertebral and facet joints. Alignment is satisfactory. No intraspinal or paraspinal hematoma is visible. The ossified structures of the larynx appear intact. No significant lesion of the visualized airway or lung apices appreciated. No gross mass or adenopathy of the neck identified, considering lack of IV contrast for this exam. Procedure Note Evert Nielsen, Bruce Nugent MD - 06/10/[address] HEAD/BRAIN WO CONTRAST; CT C SPINE WO CONTRAST - 06/10/2024 4:52 pm HISTORY significant trauma with possible severe neurologic injury or head pain;significant trauma with possible severe neurologic injury or neck pain COMPARISON Prior CT head exam from 12/04/2022 TECHNIQUE Axial images obtained through the head and cervical spine. Sagittal andcoronal reconstructed images are also provided. No contrast wasadministered for these exams. FINDINGS CT HEAD: There is a small volume of layering hemorrhage in the dependent portion ofthe right lateral ventricle. There is also increased density of the leftchoroid plexus since prior exam, indeterminate for acute hemorrhage versusprogression of choroid plexus calcifications. Arterial calcifications are present in the proximal intracranial vessels,consistent with intracranial atherosclerosis. There is patchy lucency in the bilateral cerebral white matter, mostcommonly representing chronic small vessel ischemic change. There is diffuse cerebral volume loss, and considering this the ventriclesare of normal size and contour. Increased density of the left choroid plexus since prior examindeterminate for acute hemorrhage versus progression of choroid plexuscalcifications. No abnormal extra-axial fluid is appreciated. The basilar cisterns are clear. There is no midline or downward shift. Midline structures appear normally developed and positioned. Thecraniocervical junction appears normal. No acute paranasal sinus disease is seen. The mastoid air cells are grossly clear. The visualized portions of the orbits and facial soft tissues show noacute abnormality. No acute osseous lesion is detected. Hearing device in place over theleft pinna. CT CERVICAL SPINE: No fracture is appreciated. There are multilevel degenerative changes of the cervical spine includingdisc flattening, endplate osteophytosis, and arthropathy of theuncovertebral and facet joints. Alignment is satisfactory. No intraspinal or paraspinal hematoma is visible. The ossified structures of the larynx appear intact. No significant lesion of the visualized airway or lung apicesappreciated. No gross mass or adenopathy of the neck identified, considering lack of IVcontrast for this exam. IMPRESSION IMPRESSION 1. CT head shows small amount of hemorrhage settling in the dependentportion of the right occipital horn, and increased density of the leftoccipital choroid plexus indeterminate for choroid plexus hemorrhageversus progression of choroid calcifications since prior exam. 2. Otherwise, CT head shows chronic findings, including intracranialatherosclerosis, cerebral volume loss and patchy lucency in the bilateralcerebral white matter, most commonly reflecting chronic small vesselischemic change. 3. CT cervical spine shows no acute osseous abnormality. Advanceddegenerative disk and bony changes of the cervical spine are noted, asdiscussed above. Intraspinal hematomas and ligamentous, disc and spinalcord abnormalities are not reliably assessed on CT scan, therefore MRI maybe useful if clinically indicated. Note:Above results were provided to and acknowledged by Marta MARROQUIN at approximately 5:31 pm, by secure text. Usha Marroquin DO RAD CT * CT HEAD/BRAIN WO CONTRAST (06/10/2024 4:52 PM EDT) Anatomical Region Laterality Modality Head Computed Tomogra phy 06/10/2024 5:34 PM EDT Impressions 06/10/2024 5:32 PM EDT IMPRESSION 1. CT head shows small amount of hemorrhage settling in the dependent portion of the right occipital horn, and increased density of the left occipital choroid plexus indeterminate for choroid plexus hemorrhage versus progression of choroid calcifications since prior exam. 2. Otherwise, CT head shows chronic findings, including intracranial atherosclerosis, cerebral volume loss and patchy lucency in the bilateral cerebral [...] at approximately 5:31 pm, by secure text. Narrative 06/10/2024 5:[address] HEAD/BRAIN WO CONTRAST; CT C SPINE WO CONTRAST - 06/10/2024 4:52 pm HISTORY significant trauma with possible severe neurologic injury or head pain; significant trauma with possible severe neurologic injury or neck pain COMPARISON Prior CT head exam from 12/04/2022 TECHNIQUE Axial images obtained through the head and cervical spine. Sagittal and coronal reconstructed images are also provided. No contrast was administered for these exams. FINDINGS CT HEAD: There is a small volume of layering hemorrhage in the dependent portion of the right lateral ventricle. There is also increased density of the left choroid plexus since prior exam, indeterminate for acute hemorrhage versus progression of choroid plexus calcifications. Arterial calcifications are present in the proximal intracranial vessels, consistent with intracranial atherosclerosis. There is patchy lucency in the bilateral cerebral white matter, most commonly representing chronic small vessel ischemic change. There is diffuse cerebral volume loss, and considering this the ventricles are of normal size and contour. Increased density of the left choroid plexus since prior exam indeterminate for acute hemorrhage versus progression of choroid plexus calcifications. No abnormal extra-axial fluid is appreciated. The basilar cisterns are clear. There is no midline or downward shift. Midline structures appear normally developed and positioned. The craniocervical junction appears normal. No acute paranasal sinus disease is seen. The mastoid air cells are grossly clear. The visualized portions of the orbits and facial soft tissues show no acute abnormality. No acute osseous lesion is detected. Hearing device in place over the left pinna. CT CERVICAL SPINE: No fracture is appreciated. There are multilevel degenerative changes of the cervical spine including disc flattening, endplate osteophytosis, and arthropathy of the uncovertebral and facet joints. Alignment is satisfactory. No intraspinal or paraspinal hematoma is visible. The ossified structures of the larynx appear intact. No significant lesion of the visualized airway or lung apices appreciated. No gross mass or adenopathy of the neck identified, considering lack of IV contrast for this exam. Procedure Note Bruce Loyd Jr., MD - 06/10/[address] HEAD/BRAIN WO CONTRAST; CT C SPINE WO CONTRAST - 06/10/2024 4:52 pm HISTORY significant trauma with possible severe neurologic injury or head pain;significant trauma with possible severe neurologic injury or neck pain COMPARISON Prior CT head exam from 12/04/2022 TECHNIQUE Axial images obtained through the head and cervical spine. Sagittal andcoronal reconstructed images are also provided. No contrast wasadministered for these exams. FINDINGS CT HEAD: There is a small volume of layering hemorrhage in the dependent portion ofthe right lateral ventricle. There is also increased density of the leftchoroid plexus since prior exam, indeterminate for acute hemorrhage versusprogression of choroid plexus calcifications. Arterial calcifications are present in the proximal intracranial vessels,consistent with intracranial atherosclerosis. There is patchy lucency in the bilateral cerebral white matter, mostcommonly representing chronic small vessel ischemic change. There is diffuse cerebral volume loss, and considering this the ventriclesare of normal size and contour. Increased density of the left choroid plexus since prior examindeterminate for acute hemorrhage versus progression of choroid plexuscalcifications. No abnormal extra-axial fluid is appreciated. The basilar cisterns are clear. There is no midline or downward shift. Midline structures appear normally developed and positioned. Thecraniocervical junction appears normal. No acute paranasal sinus disease is seen. The mastoid air cells are grossly clear. The visualized portions of the orbits and facial soft tissues show noacute abnormality. No acute osseous lesion is detected. Hearing device in place over theleft pinna. CT CERVICAL SPINE: No fracture is appreciated. There are multilevel degenerative changes of the cervical spine includingdisc flattening, endplate osteophytosis, and arthropathy of theuncovertebral and facet joints. Alignment is satisfactory. No intraspinal or paraspinal hematoma is visible. The ossified structures of the larynx appear intact. No significant lesion of the visualized airway or lung apicesappreciated. No gross mass or adenopathy of the neck identified, considering lack of IVcontrast for this exam. IMPRESSION IMPRESSION 1. CT head shows small amount of hemorrhage settling in the dependentportion of the right occipital horn, and increased density of the leftoccipital choroid plexus indeterminate for choroid plexus hemorrhageversus progression of choroid calcifications since prior exam. 2. Otherwise, CT head shows chronic findings, including intracranialatherosclerosis, cerebral volume loss and patchy lucency in the bilateralcerebral white matter, most commonly reflecting chronic small vesselischemic change. 3. CT cervical spine shows no acute osseous abnormality. Advanceddegenerative disk and bony changes of the cervical spine are noted, asdiscussed above. Intraspinal hematomas and ligamentous, disc and spinalcord abnormalities are not reliably assessed on CT scan, therefore MRI maybe useful if clinically indicated. Note:Above results were provided to and acknowledged by Marta MARROQUIN at approximately 5:31 pm, by secure text. Usha ROSENTHAL CT documented in this encounter Visit Diagnoses Diagnosis Intracranial hemorrhage (HCC)- Primary Unspecified intracranial hemorrhage documented in this encounter Administered Medications Inactive Administered Medications - up to 3 most recent administrations Medication Order MAR Action Action Date Dose Rate Site Iopamidol (Isovue 370) inj 80 mL 80 mL, Intravenous, ONCE, On Sun06/10/24 at 1730, For 1 dose, Radiology Medication Routing (Non-IR) Given 06/10/2024 5:30 PM EDT 80 mL NSS 0.9% 500 mL bolus infusion Intravenous, at 500 mL/hr Administer over 60 Minutes, Administer entire volume within 60 minutes or less., ONCE, 1 dose, On Sun06/10/24 at 1815 New Bag 06/10/2024 6:34 PM EDT 500 mL 500 mL/hr oxygen GAS Inhalation, OXYGEN, First dose on Sun06/10/24 at 1700, Until Discontinued, Device/Managed by: Low Flow Device, [...] is greater than or equal to 93% phytonadione (Aqua-Mephyton) 10 mg in D5W 50 mL ivpb 10 mg, IV Piggyback, ONCE, 1 dose, On Sun06/10/24 at 1815 New Bag 06/10/2024 6:38 PM EDT 10 mg 106 mL/hr Prothrombin Complex Conc Human (Kcentra) 4 factor PCC inj 1,565 Units 1,565 Units, Intravenous, ONCE, On Sun06/10/24 at 1815, For 1 dose, Dose rounded to nearest full vial size. Flush with normal saline 10 mL after infusion. UNITS = mL Administer over 15 minutes. Given 06/10/2024 6:10 PM EDT 1,565 Units sodium chloride 0.9 % flush peripheral matthew 3 mL 3 mL, IV Push, QSHIFT, First dose on Sun06/10/24 at 1700, Until Discontinued, Do not flush if lock, PICC, or central line not in place; IV infusing or unable to flush. documented in this encounter Active and Recently Administered Medications Times are shown in EDT. Scheduled Medication Order 06/08/2024 06/09/2024 06/10/2024 Iopamidol (Isovue 370) inj 80 mL (COMPLETED) 80 mL, Intravenous, ONCE, On Sun06/10/24 at 1730, For 1 dose, Radiology Medication Routing (Non-IR) 1730 (Given - Provid er: Neisha Juárez, RT) NSS 0.9% 500 mL bolus infusion Intravenous, at 500 mL/hr Administer over 60 Minutes, Administer entire volume within 60 minutes or less., ONCE, 1 dose, On Sun06/10/24 at 1815 1834 (New Bag - Prov ider: Joy Pritchard RN) oxygen GAS Inhalation, OXYGEN, First dose on Sun06/10/24 at 1700, Until Discontinued, Device/Managed by: Low Flow Device, [...] is greater than or equal to 93% 1700 (Due) phytonadione (Aqua-Mephyton) 10 mg in D5W 50 mL ivpb (COMPLETED) 10 mg, IV Piggyback, ONCE, 1 dose, On Sun06/10/24 at 1815 1838 (New Bag - Prov ider: Joy Pritchard RN)1908 (Finish Infusion - Provider: Joy Pritchard RN) Prothrombin Complex Conc Human (Kcentra) 4 factor PCC inj 1,565 Units (COMPLETED) 1,565 Units, Intravenous, ONCE, On Sun06/10/24 at 1815, For 1 dose, Dose rounded to nearest full vial size. Flush with normal saline 10 mL after infusion. UNITS = mL Administer over 15 minutes. 1810 (Given - Provid er: Oneil Phelps RN) sodium chloride 0.9 % flush peripheral matthew 3 mL 3 mL, IV Push, QSHIFT, First dose on Sun06/10/24 at 1700, Until Discontinued, Do not flush if lock, PICC, or central line not in place; IV infusing or unable to flush. 1700 (Due) documented in this encounter Advance Directives * [...] Directives occurred with: Not Discussed Care Teams Content Administrator Relationship Specialty Start Date End Date Jag Kovacs MD [address] [id number] PCP - General Family Medicine 08/05/21 documented as of this encounter
--- OUTSIDE RECORDS SUMMARY | 2024-08-21 14:12 | External Medical Summary ---
Author Name Unknown Address Unknown Organization [id number]:[facility] [place] [facility] [place] [address] [place] [address] Laboratory Report Ordering Provider Test Date Status SCOTT SCHAEFER 06/11/2024 04:53:00 Final Warfarin Therapy
INR: 2 .0-3.0 conventional anticoagulation
INR: 2.5- 3.5 high intensity anticoagulation Observation Date Value Abnormality Reference (Units ) Status PT 06/11/2024 04:53:00 14.9 11.6-15.2 (seconds) Final INR 06/11/2024 04:53:00 1.2 0.8-1.2 Final Performing Location [facility] [place] [facility] [place] [address] [place] [address]
--- OUTSIDE RECORDS SUMMARY | 2024-08-21 14:13 | External Medical Summary ---
Author Name Unknown Address Unknown Organization K01:[facility] - [address] [place] [address] Laboratory Report Ordering Provider Test Date Status GRECIA ARREDONDO 06/10/2024 21:08:00 Final Observation Date Value Abnormality Reference (Units ) Status Ethanol 06/10/2024 21:08:00 Negative Negative Final Performing Location [facility] - [address] [place] [id number]
--- OUTSIDE RECORDS SUMMARY | 2024-08-21 14:13 | External Medical Summary ---
Author Name Unknown Address Unknown Organization : Laboratory Report Ordering Provider Test Date Status GLADYS PAIGE 06/10/2024 22:33:28 Final Observation Date Value Abnormality Reference (Units ) Status Glucose Point of Care 06/10/2024 22:33:28 67 Below low normal 70-120 (mg/dL) Final Performing Location
--- OUTSIDE RECORDS SUMMARY | 2024-08-21 14:13 | External Medical Summary ---
Author Name Unknown Address Unknown Organization [id number]:LABORATORY [facility] [place] - [address] [place] [address] Laboratory Report Ordering Provider Test Date Status GRECIA ARREDONDO 06/10/2024 21:09:00 Final Anticoagulation may affect t esting. Refer to [facility] Test Catalog for a list of effects. Observation Date Value Abnormality Reference (Units ) Status aPTT panel - Platelet poor plasma 06/10/2024 21:09:00 28 21-38 (seconds) Final Performing Location LABORATORY [facility] [place] - [address] [place] [address]
--- OUTSIDE RECORDS SUMMARY | 2024-08-21 14:13 | External Medical Summary ---
Author Name Unknown Address Unknown Organization K01:LABORATORY [facility] [place] - [address] [place] [address] Laboratory Report Ordering Provider Test Date Status GRECIA ARREDONDO 06/10/2024 21:08:00 Final Observation Date Value Abnormality Reference (Units ) Status AST (Aspartate aminotransferase) 06/10/2024 21:08:00 20 10-35 (U/L) Final Performing Location LABORATORY [facility] - [address] [place] [address]
--- OUTSIDE RECORDS SUMMARY | 2024-08-21 14:13 | External Medical Summary ---
Author Name Unknown Address Unknown Organization K01:[place] [facility] [place] [address] [place] [address] Laboratory Report Ordering Provider Test Date Status SCOTT SCHAEFER 06/10/2024 23:53:00 Final Observation Date Value Abnormality Reference (Units ) Status Lactic Acid 06/10/2024 23:53:00 2.9 Above high normal 0.4-2.0 (mmol/L) Final Performing Location [place] [facility] [place] [address] [place] [address]
--- OUTSIDE RECORDS SUMMARY | 2024-08-21 14:13 | External Medical Summary ---
Author Name Unknown Address Unknown Organization K01:[place] [facility] [place] [address] [address] Laboratory Report Ordering Provider Test Date Status GRECIA ARREDONDO 06/10/2024 21:02:26 Final Observation Date Value Abnormality Reference (Units) Status Color of Urine by Auto 06/10/2024 21:02:26 Light Yellow Colorless, Light Yellow, Yellow, Dark Yellow Final Clarity, Urine 06/10/2024 21:02:26 Slightly Cloudy Abnormal Clear Final Glucose [Mass/volume] in Urine by Automated test strip 06/10/2024 21:02:26 Negative Negative (mg/dL) Final Bilirubin.total [Presence] in Urine by Automated test strip 06/10/2024 21:02:26 Negative Negative Final Ketones [Mass/volume] in Urine by Automated test strip 06/10/2024 21:02:26 Negative Negative (mg/dL) Final Specific gravity, Urine 06/10/2024 21:02:26 1.031 Above high normal 1.003-1.030 Final Hemoglobin [Presence] in Urine by Automated test strip 06/10/2024 21:02:26 Negative Negative Final pH, Urine 06/10/2024 21:02:26 6.0 5.0-7.5 (Units) Final Protein [Mass/volume] in Urine by Automated test strip 06/10/2024 21:02:26 Negative Negative (mg/dL) Final Urobilinogen [Mass/volume] in Urine by Automated test strip 06/10/2024 21:02:26 Normal Normal (mg/dL) Final Nitrite [Presence] in Urine by Automated test strip 06/10/2024 21:02:26 Positive Abnormal Negative Final Leukocyte esterase [Presence] in Urine by Automated test strip 06/10/2024 21:02:26 Large Abnormal Negative Final RBC, Urine 06/10/2024 21:02:26 0-2 0-2 (/HPF) Final WBC, Urine 06/10/2024 21:02:26 50+ Abnormal 0-2 (/HPF) Final Bacteria [#/area] in Urine sediment by Microscopy high power field 06/10/2024 21:02:26 26-50 Abnormal 0-25 (/HPF) Final Hyaline casts, Urine 06/10/2024 21:02:26 1-4 Abnormal None (/LPF) Final Transitional cells [#/area] in Urine sediment by Microscopy high power field 06/10/2024 21:02:26 1-4 Abnormal None (/HPF) Final Performing Location [place] [facility] [place] [facility] [address] [facility] [address]
--- OUTSIDE RECORDS SUMMARY | 2024-08-21 14:13 | External Medical Summary ---
Author Name Unknown Address Unknown Organization K01:[place] [facility] [place] [address] [facility] [address] Laboratory Report Ordering Provider Test Date Status SCOTT SCHAEFER 06/10/2024 22:55:15 Final <10,000 colonies/ml mixed no rmal surendra Observation Date Value Abnormality Reference (Units ) Status Bacteria identified in Specimen by Culture 06/10/2024 22:55:15 [id number]^ESCHE RICHIA COLI Abnormal Final 10,000 to 100,000 colonies/m L Escherichia coli Performing Location [place] [facility] [place] [address] [facility] [address] Ordering Provider Test Date Status SCOTT SCHAEFER 06/10/2024 22:55:15 Final Observation Date Value Abnormality Reference (Units ) Status Ampicillin 06/10/2024 22:55:15 >=32 Resistant Final Ampicillin + Sulbactam 06/10/2024 22:55:15 16 Intermediate Final Cefazolin 06/10/2024 22:55:15 <=4 Susceptible Final Cefepime susceptibility 06/10/2024 22:55:15 <=1 Susceptible Final Ceftriaxone suceptibility 06/10/2024 22:55:15 <=1 Susceptible Final Ciprofloxacin 06/10/2024 22:55:15 >=4 Resistant Final Due to serious side effects, the FDA has advised against using Ciprofloxacin to treat uncomplicated UTIs and respiratory tract infections unless there are no alternative treatment options. Gentamicin susceptibility 06/10/2024 22:55:15 <=1 Susc eptible Final Levofloxacin susceptibility 06/10/2024 22:55:15 >=8 Re sistant Final Due to serious side effects, the FDA has advised against using Levofloxacin to treat uncomplicated UTIs and respiratory tract infections unless there are no alternative treatment options. Nitrofurantoin susceptibility 06/10/2024 22:55:15 <=16 Susceptible Final Piperacillin + Tazobactamsusceptibility 06/10/2024 22:55:15 <=4 Susceptible Final TMP-SMZ susceptibility 06/10/2024 22:55:15 <=20 Suscept ible Final Test: Culture, Urine, Quanti tative
Specimen Source: Urine, Catheter
Specimen Type: Urine
Specimen Date: 06/10/20242254
Result Date: 06/13/2024 1154
Result Status: Final result
Abnormal: Yes
Resulting Lab: [place] [facility] [place]
[address]
[place] [address]

CULTURE

10,000 to 100,000 colonies/mL Escherichia coli (Abnormal)

<10,000 colonies/ml mixed normal surendra

SUSCEPTIBILITY

Escherichia coli
METHOD MICROBROTH
DILUTIONS

AMPICILLIN >=32 Resistant
AMPICILLIN/SULBACTAM 16 Intermediate
CEFAZOLIN <=4 Susceptible
CEFEPIME <=1 Susceptible
CEFTRIAXONE <=1 Susceptible
CIPROFLOXACIN >=4 Resistant
[1]
GENTAMICIN <=1 Susceptible
LEVOFLOXACIN >=8 Resistant
[2]
NITROFURANTOIN <=16 Susceptible
PIPERACILLIN TAZOBACTAM <=4 Susceptible
TRIMETH/SULFAMETHOXAZOLE <=20 Susceptible

[1] Due to serious side effects, the FDA has advised against using
Ciprofloxacin to treat uncomplicated UTIs and respiratory tract infections
unless there are no alternative treatment options.

[2] Due to serious side effects, the FDA has advised against using
Levofloxacin to treat uncomplicated UTIs and respiratory tract infections
unless there are no alternative treatment options.

null Performing Location [place] [facility] [place] [address] [facility] [address]
--- OUTSIDE RECORDS SUMMARY | 2024-08-21 14:13 | External Medical Summary ---
Author Name Unknown Address Unknown Organization K1F:LABORATORY [facility] - [address] [place] [address] Laboratory Report Ordering Provider Test Date Status USHAGEORGINAKEIRY 06/10/2024 17:18:00 Final Observation Date Value Abnormality Reference (Units ) Status Ethanol 06/10/2024 17:18:00 Negative Negative Final Performing Location LABORATORY [facility] - [address] [place] [address]
--- OUTSIDE RECORDS SUMMARY | 2024-08-21 14:13 | External Medical Summary ---
Author Name Unknown Address Unknown Organization K1F:LABORATORY [facility] - [address] [place] [address] Laboratory Report Ordering Provider Test Date Status LOPEZ KERR 06/10/2024 17:18:00 Final Warfarin Therapy
INR: 2 .0-3.0 conventional anticoagulation
INR: 2.5- 3.5 high intensity anticoagulation Observation Date Value Abnormality Reference (Units ) Status PT 06/10/2024 17:18:00 19.3 Above high normal 11 .6-15.2 (seconds) Final INR 06/10/2024 17:18:00 1.6 Above high normal 0. 8-1.2 Final Performing Location LABORATORY [facility] - [address] [place] [address]
--- OUTSIDE RECORDS SUMMARY | 2024-08-21 14:13 | External Medical Summary ---
Author Name Unknown Address Unknown Organization K01:[place] [facility] [place] [address] [place] [address] Laboratory Report Ordering Provider Test Date Status GRECIA ARREDONDO 06/10/2024 21:08:00 Final Observation Date Value Abnormality Reference (Units ) Status Lactic Acid 06/10/2024 21:08:00 2.4 Above high normal 0.4-2.0 (mmol/L) Final Performing Location LAB[facility]ATORY [facility] [place] - [address] [place] [address]
--- OUTSIDE RECORDS SUMMARY | 2024-08-21 14:13 | External Medical Summary ---
Author Name Unknown Address Unknown Organization K1F:LABORATORY [facility] - [facility] [address] [facility] [address] [place] [address] Laboratory Report Ordering Provider Test Date Status LOPEZ KERR 06/10/2024 17:17:00 Final Observation Date Value Abnormality Reference (Units ) Status WBC, Total 06/10/2024 17:17:00 11.69 Above high normal 4.00-10.80 (K/uL) Final RBC 06/10/2024 17:17:00 4.38 3.85-5.15 (M/uL) Final Hemoglobin 06/10/2024 17:17:00 12.5 12.0-15.3 (g/dL) Final HCT 06/10/2024 17:17:00 38.5 36.0-45.2 (%) Final MCV 06/10/2024 17:17:00 87.9 81.5-97.5 (fL) Final MCH 06/10/2024 17:17:00 28.5 27.0-34.0 (pg) Final MCHC 06/10/2024 17:17:00 32.5 32.0-36.0 (g/dL) Final RDW 06/10/2024 17:17:00 17.0 11.5-15.5 (%) Final Platelets 06/10/2024 17:17:00 235 140-400 (K/uL) Final MPV 06/10/2024 17:17:00 10.1 6.6-11.1 (fL) Final Nucleated erythrocytes/100 leukocytes [Ratio] in Blood by Automated count 06/10/2024 17:17:00 0 <=0 (/100 WBCs) Final Performing Location LABORATORY [facility] - [address] [place] [address]
--- OUTSIDE RECORDS SUMMARY | 2024-08-21 14:13 | External Medical Summary ---
Author Name Unknown Address Unknown Organization K01:[place] [facility] [place] [address] [place] [address] Laboratory Report Ordering Provider Test Date Status GRECIA ARREDONDO 06/10/2024 21:08:00 Final Observation Date Value Abnormality Reference (Units ) Status BUN 06/10/2024 21:08:00 14 6-20 (mg/dL) Final Creatinine 06/10/2024 21:08:00 0.9 0.5-1.0 (mg/dL) Final Glomerular filtration rate/1.73 sq M.predicted [Volume Rate/Area] in Serum, Plasma or Blood by Creatinine-based formula (CKD-EPI) 06/10/2024 21:08:00 67 >=60 (mL/min) Final eGFR is calculated based on the CKD-EPI 2020 equation. Sodium 06/10/2024 21:08:00 140 135-146 (m mol/L) Final Potassium 06/10/2024 21:08:00 3.0 Below low normal 3.5 -5.1 (mmol/L) Final Cl 06/10/2024 21:08:00 100 98-107 (mm ol/L) Final CO2 06/10/2024 21:08:00 25 22-32 (mmo l/L) Final Anion gap 06/10/2024 21:08:00 15 7-15 (mmol /L) Final Glucose 06/10/2024 21:08:00 86 70-120 (mg /dL) Final Calcium 06/10/2024 21:08:00 9.6 8.4-10.2 ( mg/dL) Final Performing Location LAB[facility]ATORY [facility] [place] [address] [place] [address]
--- OUTSIDE RECORDS SUMMARY | 2024-08-21 14:13 | External Medical Summary ---
Author Name Unknown Address Unknown Organization K01:LABORATORY [facility] [place] - [address] [facility] [address] Laboratory Report Ordering Provider Test Date Status GRECIA ARREDONDO 06/10/2024 21:08:00 Final Observation Date Value Abnormality Reference (Units ) Status WBC, Total 06/10/2024 21:08:00 10.33 4.00-10.80 (K/uL) Final RBC 06/10/2024 21:08:00 4.59 3.85-5.15 (M/uL) Final Hemoglobin 06/10/2024 21:08:00 13.0 12.0-15.3 (g/dL) Final HCT 06/10/2024 21:08:00 40.0 36.0-45.2 (%) Final MCV 06/10/2024 21:08:00 87.1 81.5-97.5 (fL) Final MCH 06/10/2024 21:08:00 28.3 27.0-34.0 (pg) Final MCHC 06/10/2024 21:08:00 32.5 32.0-36.0 (g/dL) Final RDW 06/10/2024 21:08:00 17.1 11.5-15.5 (%) Final Platelets 06/10/2024 21:08:00 249 140-400 (K/uL) Final MPV 06/10/2024 21:08:00 10.4 6.6-11.1 (fL) Final Nucleated erythrocytes/100 leukocytes [Ratio] in Blood by Automated count 06/10/2024 21:08:00 0 <=0 (/100 WBCs) Final Performing Location LABORATORY [facility] [place] - [address] [facility] [address]
--- OUTSIDE RECORDS SUMMARY | 2024-08-21 14:13 | External Medical Summary ---
Author Name Unknown Address Unknown Organization K01:LABORATORY [facility] [place] - [facility] [address] [facility] [facility] [address] Laboratory Report Ordering Provider Test Date Status GRECIA ARREDONDO 06/10/2024 21:02:26 Final <10,000 colonies/ml mixed no rmal surendra Observation Date Value Abnormality Reference (Units ) Status Bacteria identified in Specimen by Culture 06/10/2024 21:02:26 [id number]^KLEBSIELL A PNEUMONIAE Abnormal Final 10,000 to 100,000 colonies/m L Klebsiella pneumoniae Bacteria identified in Specimen by Culture 06/10/2024 21:02:26 [id number]^ESCHERICHIA COLI Abnormal Final 10,000 to 100,000 colonies/m L Escherichia coli Performing Location LABORATORY [facility] [place] - [address] [facility] [address] Ordering Provider Test Date Status GRECIA ARREDONDO 06/10/2024 21:02:26 Final Observation Date Value Abnormality Reference (Units ) Status Ampicillin + Sulbactam 06/10/2024 21:02:26 <=2 Susceptible Final Cefazolin 06/10/2024 21:02:26 <=4 Susceptible Final Cefepime susceptibility 06/10/2024 21:02:26 <=1 Susceptible Final Ceftriaxone suceptibility 06/10/2024 21:02:26 <=1 Susceptible Final Ciprofloxacin 06/10/2024 21:02:26 <=0.25 Susceptible Final Due to serious side effects, the FDA has advised against using Ciprofloxacin to treat uncomplicated UTIs and respiratory tract infections unless there are no alternative treatment options. Gentamicin susceptibility 06/10/2024 21:02:26 <=1 Susc eptible Final Nitrofurantoin susceptibility 06/10/2024 21:02:26 32 Susceptible Final Piperacillin + Tazobactamsusceptibility 06/10/2024 21:02:26 <=4 Susceptible Final TMP-SMZ susceptibility 06/10/2024 21:02:26 <=20 Suscept ible Final Performing Location LABORATORY [facility] [place] - [address] [place] [address] Ordering Provider Test Date Status GRECIA ARREDONDO 06/10/2024 21:02:26 Final Observation Date Value Abnormality Reference (Units ) Status Ampicillin 06/10/2024 21:02:26 >=32 Resistant Final Ampicillin + Sulbactam 06/10/2024 21:02:26 16 Intermediate Final Cefazolin 06/10/2024 21:02:26 <=4 Susceptible Final Cefepime susceptibility 06/10/2024 21:02:26 <=1 Susceptible Final Ceftriaxone suceptibility 06/10/2024 21:02:26 <=1 Susceptible Final Ciprofloxacin 06/10/2024 21:02:26 >=4 Resistant Final Due to serious side effects, the FDA has advised against using Ciprofloxacin to treat uncomplicated UTIs and respiratory tract infections unless there are no alternative treatment options. Gentamicin susceptibility 06/10/2024 21:02:26 <=1 Susc eptible Final Levofloxacin susceptibility 06/10/2024 21:02:26 4 Re sistant Final Due to serious side effects, the FDA has advised against using Levofloxacin to treat uncomplicated UTIs and respiratory tract infections unless there are no alternative treatment options. Nitrofurantoin susceptibility 06/10/2024 21:02:26 <=16 Susceptible Final Piperacillin + Tazobactamsusceptibility 06/10/2024 21:02:26 <=4 Susceptible Final TMP-SMZ susceptibility 06/10/2024 21:02:26 <=20 Suscept ible Final Test: Culture, Urine, Quanti tative
Specimen Source: Urine, Clean Catch
Specimen Type: Urine
Specimen Date: 06/10/20242101
Result Date: 06/13/20241155
Result Status: Final result
Abnormal: Yes
Resulting Lab: LABORATORY [facility] [place]
[address]
[place] [address]

CULTURE

10,000 to 100,000 colonies/mL Klebsiella pneumoniae (Abnormal)

10,000 to 100,000 colonies/mL Escherichia coli (Abnormal)

<10,000 colonies/ml mixed normal surendra

SUSCEPTIBILITY

Klebsiella Escherichia coli
pneumoniae
METHOD MICROBROTH DILUTIONS MICROBROTH DILUTIONS

AMPICILLIN >=32 Resistant
AMPICILLIN/SULBACTAM <=2 Susceptible 16 Intermediate
CEFAZOLIN <=4 Susceptible <=4 Susceptible
CEFEPIME <=1 Susceptible <=1 Susceptible
CEFTRIAXONE <=1 Susceptible <=1 Susceptible
CIPROFLOXACIN <=0.25 Susceptible >=4 Resistant
[1] [2]
GENTAMICIN <=1 Susceptible <=1 Susceptible
LEVOFLOXACIN 4 Resistant
[3]
NITROFURANTOIN 32 Susceptible <=16 Susceptible
PIPERACILLIN TAZOBACTAM <=4 Susceptible <=4 Susceptible
TRIMETH/SULFAMETHOXAZOLE <=20 Susceptible <=20 Susceptible

[1] Due to serious side [...] alternative treatment options.

null Performing Location LABORATORY [facility] [place] - [address] [place] [address]
--- OUTSIDE RECORDS SUMMARY | 2024-08-21 14:13 | External Medical Summary | Summary of Care ---
Author Name Unknown Organization [facility] Address [address] [place] [address] Phone [phone] Care Team Providers Care Educational Psychology Teacher Name Role Phone Jag Kovacs MD Primary Care Provider Reason for Visit * Reason Comments Follow Up * Evaluate & Treat - Unlimited Visits (Within 10 days (routine)) - Authorized Specialty Diagnoses / Procedures Referred By Bernard jo Referred To Contact Podiatry Diagnoses Type 2 diabetes mellitus with hemoglobin A1c goal of less than 8.0% ([facility]) Jag Kovacs MD [address] [place] [address] Referral ID Status Reason Start Date Expiration Date Visits Requested Visits Authorized [id number] Authorized Specialty Services Required 02/08/[phone] Encounter Details Date Type Department Care Team (Late st Contact Info) Description 06/05/2024 1:40 PM EDT Office Visit Podiatry, [facility] [address] [place] [address] Azul Nye DPM [address] [place] [address] Diabetic polyneuropathy associated with type 2 diabetes mellitus (HCC)*; Onychomycosis; Onychocryptosis; Pain in toes of both feet; Arch pain, right Allergies Active Allergy Reactions Criticality Noted Date Comments Diphenhydramine 09/03/2018 Epinephrine Other (Please comment) 07/03/2023 Propranolol Hcl 09/29/2010 "TIA" - like reactions Lisinopril Cough 08/04/2008 Mepivacaine Hcl 06/30/2008 With epi: whole face sagged Simvastatin 12/25/2012 Myalgia-nl CK documented as of this encounter (statuses as of 06/05/2024) Medications Medication Sig Dispensed Refills Start Date End Date Status ONETOGOVIND MORENO MISCIndications:DM type 2, goal A1c below 7 use as directed up to 4 times per day 100 Each 11 3 Active Cyanocobalamin (B-12) 1000 MCG TABS Take [...] for Hemorrhoids. Apply to hemorhoids 3 Active Metoprolol Tartrate 50 MG Oral Tablet (Lopressor) Take 0.5 Tablets by mouth in the morning and 0.5 Tablets before bedtime. 3 Active Clotrimazole-Betame thasone 1-0.05 % External Cream Apply topically to affected area twice daily. 45 g 2 3 Active OneTouch Ultra In Vitro Strip (Glucose Blood)Indications:T ype 2 diabetes mellitus with hemoglobin A1c goal of less than 8.0% (HCC) Use as directed to check blood sugar once a day. 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) TAKE 1 TABLET BY MOUTH TWICE DAILY WITH MEALS 180 Tablet 3 3 Active Allopurinol 100 MG Oral Tablet [...] OTHER MEDICATIONS 90 Tablet 1 4 Active Warfarin Sodium 2.5 MG Oral Tablet (Coumadin)Indicatio ns:Hemiplegia, post-stroke (HCC),Paroxysmal atrial fibrillation (HCC) TAKE 1 TO 2 TABLETS BY MOUTH IN THE EVENING DIRECTED BY ANTICOAGULATION CLINIC 180 Tablet 1 4 Active documented as of this encounter (statuses as of 06/05/2024) Active Problems Problem Noted Date Diagnosed Date [...] as of this encounter (statuses as of 06/05/2024) Resolved Problems Problem Noted Date Diagnosed Date [...] nuclear stress test 05/08/2016 06/12/2017 Overview: 05/04-at [place] card++++ B12 deficiency 08/12/2015 06/12/2017 Overview: b12-231, [...] 5 yrs-Mely. Noel scope 02/28/2010 Dr. Lynn, [place] internal hemorrhoid, normal colon, repeat 5 years [...] as of this encounter (statuses as of 06/05/2024) Immunizations Name Administration Dates Next Due PPD [...] money to get more. Never true 06/20/2023 Sex and Gender Information Value Date [...] No 11/29/2022 documented as of this encounter Progress Notes * Azul Nye, DPM - 06/05/2024 1:40 PM EDT Podiatry Established Note [facility] Name: Alka Lawson : 1940 Date: 06/05/2024 REASON FOR VISIT: foot care SUBJECTIVE: This patient is a 84 year old female who presents today for a diabetic foot exam with routine care. She is unable to trim her own toenails. I saw Alka a couple weeks ago for heel pain. Irecommended a topical anti inflammatory and gel cups. She reports improvement. She is not doing daily stretching though. Medical necessity reason: type 2 DM with neuropathy Last primary care appointment: 02/07/2024 Jag Kovacs MD, she did see primary care since for acuteissues Past Medical History: Diagnosis Date Acute respiratory [...] eval> >01/31-dc fe ILD (interstitial lung disease) ([facility]) 02/14/2023 Internal hemorrhoids 01/26/2014 Mixed incontinence urge and stress (male)(female) 11/16/2010 Nocturnal hypoxia 05/14/201506/02--night ox 01/31 my read-desaturation to 87%.-?pattern osas. >refer-sleep cl eval-viral sleep study>08/12/15--no osas, -fu 09/02---rec O2 defers Obesity, Class III, BMI 40-49.9 (morbid obesity) ([facility]) 05/03/2010 Per Obesity Protocol, #19 ICD-10 update of inactive term Pneumonia due to COVID-19 virus 07/27/2021 Severe obesity with body mass index (BMI) of 35.0 to 35.9 and comorbidity ([facility]) 05/11/2011 Stroke ([facility]) Trochanteric bursitis of right hip 11/27/2012 Urgency incontinence 10/02/2014 Varicose vein of leg 05/28/2012 Mild lt leg ALLERGIES: Review of patient's allergies indicates: Allergen Reactions Diphenhydramine Epinephrine Other (Please comment) Inderal [Propranolol Hcl] "TIA" - like reactions Lisinopril Cough Mepivacaine Hcl With epi: whole face sagged Zocor [Simvastatin] Myalgia-nl CK REVIEW OF SYSTEMS: CONSTITUTIONAL: No fevers, sweats, or chills FOCUSED PODIATRIC EXAM: Vascular: Pedal pulses palpable including DP and PT 2/4, bilaterally. Capillary refill time is less than 5 seconds to toes 1-5 bilaterally. No edema noted. No increase in warmth. Absence of pedal hair growth noted. Neurologic: Sensation (light touch) intact to the bilateral lower extremities. No weakness. Musculoskeletal: Mild pain with palpation of the medial and lateral nail borders of the bilateral great toenails andsecond toes. Mild pain with palpation of the left 5th toenail. Pain is reported with palpation of the right arch only, no pain with palpation of the bilateral heels. Dermatological: There is significant incurvation of the medial and lateral nail borders of the bilateral great toenails and bilateral second/third toenails. The left 5th toenail is thickened >3mm, discolored (yellow brown) and elongated.. All remaining toenails are now mildly discolored, thickened >2mm, showsubungual debris. Skin is thin, atrophic. No erythema. No rash. Class Findings for Routine Foot Care Class A Findings: None Class B Findings: Advanced trophic changes (at least three of the following): hair growth (decreaseor absence), nail changes (thickening) and skin texture (thin, shiny) Class C Findings: Paresthesia (abnormal spontaneous sensations in feet) and Burning Modifier: Q9 - 1 Class B Finding and 2 Class C Findings DIAGNOSTIC STUDIES: Hemoglobin AIC Results: Lab Results Component Value Date/Time HEMOGLOBIN A1C - [facility] 7.6 (H) 12/13/2023 02:56 PM HEMOGLOBIN A1C - [facility] 6.8 (H) 06/08/2023 09:29 AM HEMOGLOBIN A1C - [facility] 7.2 (H) 12/05/2022 06:24 AM HEMOGLOBIN A1C - [facility] 8.1 (H) 09/30/2020 03:07 PM HEMOGLOBIN A1C - [facility] 7.2 (H) 04/06/2020 01:10 PM HEMOGLOBIN A1C - [facility] 6.6 (H) 10/02/2019 02:26 PM HEMOGLOBIN A1C POCT - [facility] 6.3 (H) 09/13/2022 12:45 PM ASSESSMENT: 1. Diabetic polyneuropathy associated with type 2 diabetes mellitus (HCC) 2. Onychomycosis TA T1 T2 T3 T4 T5 T6 T7 T8 T9 3. Onychocryptosis TA T1 T5 T6 4. Pain in toes of both feet 5. Arch pain, right PLAN: Procedure: After mild cleansing and drying of feet, toenails 1-5 bilaterally were manually and mechanically debrided without incident. A nail splitter was used to remove all incurvating edges. A cutter hot knife wasused to trim nail to appropriate length. An electrical bur was used in a side to side motion to reduce nail thickness, hypertrophic growth, and to smooth all edges. Patient tolerated well. They noted improvement following procedure. I discussed her now arch pain. I recommended they use a bottle or can to help stretch the arch. Sheis to roll the foot over this gently for about 1-2 minutes twice daily. Follow up: 3 months documented in this encounter Nursing Notes * Federico Tolbert MED ASSIST - 06/05/2024 1:16 PM EDT Pt here for rouitne nail care. Pt says she has pain in her right heel documented in this encounter Plan of Treatment Upcoming Encounters Date Type Department Care Team (Late st Contact Info) Description 06/13/2024 1:30 PM EDT Anticoagulation Pharmacy, [place] [address] [place] [phone] Pharmacist1, [facility] [address] [place] [phone] 08/28/2024 6:00 PM EDT Office Visit [facility] [address] [place] [phone] Jag Kovacs MD [address] [place] [address] 09/11/2024 2:00 PM EDT Office Visit Podiatry, [facility] [address] [place] [address] Azul Nye DPM [address] [place], [place] [phone] Scheduled Procedures Name Priority Associated Diagnoses Date/Ti [...] 2024 08/03/2023, 09/13/2022, 11/07/2021, Additional history exists GFR 12/13/2024 12/13/2023, 11/20, 12/07/2022, Additional history exists Diabetic Foot Exam 02/06/2025 02/07/2024, 0 02/14/2023, 05/04/2022, Additional history exists Diabetic Eye Exam 03/17/2025 03/17/2024, , 03/16/2023, Additional history exists DXA Scan 06/05/2026 06/05/2019, [...] as of this encounter Visit Diagnoses Diagnosis Diabetic polyneuropathy associated with type 2 diabetes mellitus (HCC)- Primary Onychomycosis Dermatophytosis of nail Onychocryptosis Ingrowing nail Pain in toes of both feet Arch pain, right documented in this encounter Advance Directives * Full Code (Latest Code Status on File) Date Activated Date Inactivated Comments 12/04/2022 10:59 [...] of Advance Directives occurred with: Not Discussed * Full Code Date Activated Date Inactivated Comments 04/06/2019 1:47 PM 04/07/2019 10:00 PM This order reflects the patients wishes and were consensually agreed upon. Question Answer Comments Discussion of Advance Directives occurred with: Patient Care Teams Educational Psychology Teacher Relationship Specialty Start Date End Date Jag Kovacs MD [address] [phone] PCP - General Family Medicine 08/05/21 documented as of this encounter
--- OUTSIDE RECORDS SUMMARY | 2024-08-21 14:13 | External Medical Summary ---
Author Name Unknown Address Unknown Organization K1F:LABORATORY [facility] - [address] [place] [address] Laboratory Report Ordering Provider Test Date Status LOPEZ KERR 06/10/2024 17:18:00 Final Observation Date Value Abnormality Reference (Units ) Status Lactic Acid, Whole Blood 06/10/2024 17:18:00 4.5 Above upper panic limits 0.4-2.0 (mmol/L) Final Performing Location LABORATORY [facility] - [address] [place] [address]
--- OUTSIDE RECORDS SUMMARY | 2024-08-21 14:13 | External Medical Summary ---
Author Name Unknown Address Unknown Organization : Laboratory Report Ordering Provider Test Date Status AYLIN MARK 05/16/2024 13:34:05 Final Therapeutic ranges for non-o perative patients:
Prophylaxsis/treatment of DVT: (Range:2.0-3.0)
Treatment of pulmonary embolism:(Range:2.0-3.0)
Prevention of systemic embolism from:
-tissue heart valves
-acute myocardial infarction
-valvular heart disease
-atrial fibrillation
(Range: 2.0-3.0)
Mechanical prosthetic valves: (Range: 2.5-3.5) Observation Date Value Abnormality Reference (Units ) Status INR in Capillary blood by Coagulation assay 05/16/2024 13:34:05 1.7 (INR) Final Performing Location
--- OUTSIDE RECORDS SUMMARY | 2024-08-21 14:13 | External Medical Summary ---
Author Name Unknown Address Unknown Organization K01:LABORATORY [place] [address] [address] [facility] [address] Laboratory Report Ordering Provider Test Date Status GRECIA ARREDONDO 06/10/2024 21:02:26 Final Cutoff Concentrations:
Drug Level
Amphetamines 500 [...] Reference (Units ) Status Amphetamines, Urine screen 06/10/2024 21:02:26 Negative Negative Final Benzodiazepines, Urine screen 06/10/2024 21:02:26 Negative Negative Final Cannabinoids, Urine screen 06/10/2024 21:02:26 Negative Negative Final Cocaine Metabolite, Urine screen 06/10/2024 21:02:26 Negative Negative Final fentaNYL [Presence] in Urine by Screen method 06/10/2024 21:02:26 Negative Negative Final HYDROcodone [Presence] in Urine by Screen method 06/10/2024 21:02:26 Negative Negative Final 6-Khsuxofhdi-4,5-Dimeth yl-3,3-Diphenylpyrrolid ine (EDDP) [Presence] in Urine 06/10/2024 21:02:26 Negative Negative Final Opiates, Urine screen 06/10/2024 21:02:26 Negative Negative Final oxyCODONE [Presence] in Urine by Screen method 06/10/2024 21:02:26 Negative Negative Final Performing Location LABORATORY [facility] - [address] [facility] [address]
--- OUTSIDE RECORDS SUMMARY | 2024-08-21 14:13 | External Medical Summary | Summary of Care ---
Author Name Unknown Organization [facility] Address [address] [facility] [place] [address] Phone [phone] Care Team Providers Care [employer] Sewer Name Role Phone Jag Kovacs MD Primary Care Provider Reason for Visit * Reason Comments Dosage Adjustment In Person (Anticoag Cl inic) Encounter Details Date Type Department Care Team (Latest Contact Info) Description 05/16/2024 1:30 PM EDT Anticoagulation Pharmacy, [place] [address] [place] [phone] Pharmacist1, [facility] [place] [address] [place] [phone] Anticoagulation management encounter*; Hemiplegia, post-stroke (HCC); Paroxysmal atrial fibrillation (HCC) Allergies Active Allergy Reactions Criticality Noted Date Comments Diphenhydramine 09/03/2018 Epinephrine Other (Please comment) 07/03/2023 Propranolol Hcl 09/29/2010 "TIA" - like reactions Lisinopril Cough 08/04/2008 Mepivacaine Hcl 06/30/2008 With epi: whole face sagged Simvastatin 12/25/2012 Myalgia-nl CK documented as of this encounter (statuses as of 05/16/2024) Medications Medication Sig Dispensed Refills Start Date [...] as of this encounter (statuses as of 05/16/2024) Active Problems Problem Noted Date Diagnosed Date [...] Dyslipidemia, goal LDL below 100 09/28/2010 Overview: 9/14--not taking questran--states forgets 08/30-Had myalgia lipitor, pravachol/zocor Type 2 diabetes mellitus wit h hemoglobin A1c goal of less than 8.0% 09/28/2010 Overview: 07/22/13 Dr Joseph: no ocular complications 07/18/12 Dr Joseph: no ocular complications 05/28/12 DM Self Mgmt: Diet/Exercise--Kelli- 07/05/2009 FBS 159, A1C 6.4 ICD-10 update of inactive term documented as of this encounter (statuses as of 05/16/2024) Resolved Problems Problem Noted Date Diagnosed Date [...] nuclear stress test 05/08/2016 06/12/2017 Overview: 05/04-at [place] card++++ B12 deficiency 08/12/2015 06/12/2017 Overview: b12-231, [...] 5 yrs-Mely. C scope 02/28/2010 Dr. Lynn, [place] internal hemorrhoid, normal colon, repeat 5 years [...] as of this encounter (statuses as of 05/16/2024) Immunizations Name Administration Dates Next Due PPD [...] (15 years old or older) No 11/29/19 23 Cognitive Status Response Date of Assessm ent Because of a physical, menta l, or emotional condition, do you have serious difficulty concentrating, remembering, or making decisions? (5 years old or older) No 11/29/2022 documented as of this encounter Progress Notes * Jose Martin Castellon RPh - 05/16/2024 1:29 PM EDT Images from the original note were not included. Medication Therapy Disease Management - Anticoagulation Patient: Alka Lawson | : 1940 Subjective Patient-Reported Symptoms: Patient Findings Positives: Change in diet/appetite (increase in vitamin K (salads)) Negatives: Signs/symptoms of thrombosis, Signs/symptoms of bleeding, Change in health, Change in alcohol use, Change in activity, Upcoming invasive procedure, Missed doses, Extra doses, Change in medications, Bruising Objective Current Warfarin Dose As of 05/16/2024 Warfarin maintenance plan: 2.5 mg (2.5 mg x 1) every Mon, Wed, Fri; 5 mg (2.5 mg x 2) all other days INR Result As of 05/16/2024 INR goal: 2.0-3.0 INR used for dosin.7 (05/16/2024) Assessment & Plan Warfarin Plan As of 05/16/2024 Full warfarin instructions: 05/16: 5 mg; Otherwise 2.5 mg every Mon, Wed, Fri; 5 mg all other days Next INR check: 06/13/2024 Repeat PT/INR in 4 week(s) Weekly dose: not changed Declines immunizations Additional Dosing Information: Jose Martin Castellon RPh Clinical Pharmacist 05/16/2024, 1:29 PM documented in this encounter Plan of Treatment Upcoming Encounters Date Type Department Care Team (Late st Contact Info) Description 06/05/2024 1:40 PM EDT Office Visit Podiatry, [facility] [address] [facility] [place] [phone] Azul Nye, D[place] [address] [facility] [phone] 06/13/2024 1:30 PM EDT Anticoagulation Pharmacy, [place] [address] [phone] Pharmacist1, [facility] [place] [address] [phone] 06/23/2024 1:30 PM EDT Nurse Only Ancillary, [place] [phone] [place] [address] [place], Nurse Annual Wellness [facility] [place] [address] 08/28/2024 6:00 PM EDT Office Visit Family [facility] [address] [facility] [place] [address] Jag Kovacs MD [address] [facility] [place] [phone] Scheduled Procedures Name Priority Associated Diagnoses Date/Ti me COLONOSCOPY FLEXIBLE PROXIMAL DIAGNOSTIC Recall Special screening for malignant neoplasms, colon GERD (gastroesophageal reflux disease) ESOPHAGOGASTRODUODENOSCOPY ( EGD), FLEXIBLE, TRANSORAL, DIAGNOSTIC Recall Special screening for malignant neoplasms, colon GERD (gastroesophageal reflux disease) Health Maintenance Due Date Last Done Comments Zoster Vaccines (2 of 3) 04/09/2012 02/13/2012 COVID-19 Vaccine ( - 2022- season) 2023 Colonoscopy 10/12/2023 10/12/2020, 09/20, 09/28/2017, Additional history exists Albumin/Creatinine Ratio 06/08/2024 023, 11/09/2022, 04/06/2020, Additional history exists TSH 06/08/2024 06/08/2023, 11/20, 12/08/2022, Additional history exists HbA1c 06/12/2024 12/13/2023, 05/20, 12/05/2022, Additional history exists Depression Screening 06/20/2024 06/20/2023 GFR 12/13/2024 12/13/2023, 11/20, 12/07/2022, Additional history exists Diabetic Foot Exam 02/06/2025 02/07/2024, 0 02/14/2023, 05/04/2022, Additional history exists Diabetic Eye Exam 03/17/2025 03/17/2024, , 03/16/2023, Additional history exists DXA Scan 06/05/2026 06/05/2019, 08/20, 09/10/2012 DTaP,Tdap,and Td Vaccines (3 - Td or Tdap) 01/29/2029 01/29/2019, 05/28/2012 Pneumococcal Vaccine: 65+ Years Completed 08/06/2015, 11/16/2010 Influenza Vaccine (FLU shot) Completed , 09/13/2022, 11/07/2021, Additional history exists GARDASIL-HPV IMMUNIZATION SERIES Aged Out No longer eligible based on patient's age to complete this topic Hepatitis B Aged Out No longer eligi ble based on patient's age to complete this topic MENINGOCOCCAL (MENACTRA/MENVEO) Aged Out No longer eligible based on patient's age to complete this topic documented as of this encounter Medical Devices Not on filedocumented as of this encounter Procedures Procedure Name Priority Date/Time Associated Diagnosis Comments INR FINGERSTICK, POINT OF CARE STAT 05/16/2024 1:34 PM EDT Hemiplegia, post-stroke (HCC) Paroxysmal atrial fibrillation (HCC) Anticoagulation management encounter documented in this encounter Results * INR FINGERSTICK, POINT OF CARE (05/16/2024 1:34 PM EDT) Fingerstick INR 1.7 INR 1:35 PM EDT LABORATORY [address] Blood 05/16/2024 1:34 PM EDT 05/16/2024 1:35 PM EDT Narrative LABORATORY [place] 46-89 - 05/16/2024 1:35 PM EDT Therapeutic ranges for non-operative patients: Prophylaxsis/treatment of DVT: (Range:2.0-3.0) Treatment of pulmonary embolism:(Range:2.0-3.0) Prevention of systemic embolism from: -tissue heart valves -acute myocardial infarction -valvular heart disease -atrial fibrillation (Range: 2.0-3.0) Mechanical prosthetic valves: (Range: 2.5-3.5) Jose Martin Castellon [facility] LAB POINT OF CARE TE ST DOCKED DEVICE UNSOLICITED RESULTS [address] [phone] documented in this encounter Visit [...] Advance Directives occurred with: Patient Care Teams [employer] Sewer Relationship Specialty Start Date End Date Jag Kovacs MD [address] [phone] PCP - General Family Medicine 08/05/21 documented as of this encounter
--- OUTSIDE RECORDS SUMMARY | 2024-08-21 14:13 | External Medical Summary ---
Author Name Unknown Address Unknown Organization K1F:LAB[facility]ATORY [facility] [address] [facility] [place] [address] Laboratory Report Ordering Provider Test Date Status LOPEZ KERR 06/10/2024 17:17:00 Final Observation Date Value Abnormality Reference (Units ) Status SYNC LEUKOCYTES IN BLOOD BY AUTOMATED COUNT 06/10/2024 17:17:00 11.69 Above high normal 4.00-10.80 (K/uL) Final Segs 06/10/2024 17:17:00 61.9 40.0-75.0 (%) Final Lymphs % 06/10/2024 17:17:00 25.1 18.0-42.0 (%) Final Monos 06/10/2024 17:17:00 11.9 Above high normal 1.0-11.0 (%) Final Eosinophils 06/10/2024 17:17:00 0.3 0.0-6.0 (%) Final Basos 06/10/2024 17:17:00 0.3 0.0-2.0 (%) Final Immature Granulocyte, Percent 06/10/2024 17:17:00 0.5 0.0-2.0 (%) Final Absolute Segs 06/10/2024 17:17:00 7.23 1.80-7.70 (K/uL) Final Lymphs, absolute 06/10/2024 17:17:00 2.93 1.00-4.80 (K/ul) Final Monos, Abs 06/10/2024 17:17:00 1.39 Above high normal 0.00-1.10 (K/uL) Final Eos, Abs 06/10/2024 17:17:00 0.04 0.00-0.70 (K/uL) Final Basos, Abs 06/10/2024 17:17:00 0.04 0.00-0.20 (K/uL) Final Immature Granulocytes, Number 06/10/2024 17:17:00 0.06 0.00-0.20 (K/uL) Final Performing Location LABORATORY [facility] - [facility] [place] [address] [place] [address]
--- OUTSIDE RECORDS SUMMARY | 2024-08-21 14:13 | External Medical Summary ---
Author Name Unknown Address Unknown Organization K01:LABORATORY [facility] - [address] [place] [address] Laboratory Report Ordering Provider Test Date Status GRECIA ARREDONDO 06/10/2024 21:09:00 Final Warfarin Therapy
INR: 2 .0-3.0 conventional anticoagulation
INR: 2.5- 3.5 high intensity anticoagulation Observation Date Value Abnormality Reference (Units ) Status PT 06/10/2024 21:09:00 13.6 11.6-15.2 (seconds) Final INR 06/10/2024 21:09:00 1.0 0.8-1.2 Final Performing Location LABORATORY [facility] - [address] [place] [address]
--- OUTSIDE RECORDS SUMMARY | 2024-08-21 14:13 | External Medical Summary ---
Author Name Unknown Address Unknown Organization K1F:LABORATORY [facility] - [address] [place] [address] Laboratory Report Ordering Provider Test Date Status LOPEZ KERR 06/10/2024 17:17:00 Final Observation Date Value Abnormality Reference (Units ) Status ABO 06/10/2024 17:17:00 O Final RH 06/10/2024 17:17:00 Negative Final RED BLOOD CELL ANTIBODY SCREEN 06/10/2024 17:17:00 Negative Final SPECIMEN EXPIRATION DATE 06/10/2024 17:17:00 06/13/2024 23:59 Final Performing Location LABORATORY [facility] - [address] [place] [address]
--- OUTSIDE RECORDS SUMMARY | 2024-08-21 14:13 | External Medical Summary ---
Author Name Unknown Address Unknown Organization K1F:[facility] - [address] Brijesh [place] [address] Laboratory Report Ordering Provider Test Date Status LOPEZ KERR 06/10/2024 17:18:00 Final Observation Date Value Abnormality Reference (Units ) Status BUN 06/10/2024 17:18:00 17 6-20 (mg/dL) Final Creatinine 06/10/2024 17:18:00 1.0 0.5-1.0 (mg/dL) Final Glomerular filtration rate/1.73 sq M.predicted [Volume Rate/Area] in Serum, Plasma or Blood by Creatinine-based formula (CKD-EPI) 06/10/2024 17:18:00 60 >=60 (mL/min) Final eGFR is calculated based on the CKD-EPI 2020 equation. Sodium 06/10/2024 17:18:00 136 135-146 (m mol/L) Final Potassium 06/10/2024 17:18:00 3.2 Below low normal 3.5 -5.1 (mmol/L) Final Cl 06/10/2024 17:18:00 95 Below low normal 98- 107 (mmol/L) Final CO2 06/10/2024 17:18:00 25 22-32 (mmo l/L) Final Anion gap 06/10/2024 17:18:00 16 Above high normal 7- 15 (mmol/L) Final Glucose 06/10/2024 17:18:00 143 Above high normal 70 -120 (mg/dL) Final Albumin 06/10/2024 17:18:00 3.9 3.8-5.0 (g /dL) Final AST (Aspartate aminotransferase) 06/10/2024 17:18:00 15 10-35 (U/L) Fin al Alk Phos 06/10/2024 17:18:00 60 35-130 (U/ L) Final Bilirubin, Total 06/10/2024 17:18:00 0.5 <=1 .2 (mg/dL) Final Calcium 06/10/2024 17:18:00 9.2 8.4-10.2 ( mg/dL) Final Protein 06/10/2024 17:18:00 6.9 6.0-8.3 (g /dL) Final ALT (Alanine aminotransferase) 06/10/2024 17:18:00 16 10-35 (U/L) Logan zimmer Performing Location [facility] - [address] [place], [place] [address]carlee Shuklawcrista [place] [address]
--- OUTSIDE RECORDS SUMMARY | 2024-08-21 14:14 | External Medical Summary | Summary of Care ---
Author Name Unknown Organization [facility] Address [address] [place] [facility] [place] [address] Phone [phone] Care Team Providers Care Pedicurist Name Role Phone Jag Kovacs MD Primary Care Provider Reason for Referral * Evaluate & Treat - Unlimited Visits (Within 10 days (routine)) - Authorized Specialty Diagnoses / Procedures Referred By Bernard jo Referred To Contact Podiatry Diagnoses Calcaneal spur, unspecified laterality Sonia Russell CRNP [address] [address] Referral ID Status Reason Start Date Expiration Date Visits Requested Visits Authorized [id number] Authorized Specialty Services Required 04/03/[phone] Question Answer Referral Priority Within 10 days (routine) Where should this appointment be scheduled? Brandie Which condition are you referring this patient for? General Podiatry/Other Reason for Visit * Reason Onset Date Comments Test Results Imaging Study 04/03/2024 Encounter Details Date Type Department Care Team (Late st Contact Info) Description 04/03/2024 Telephone Brijesh Martinez [address] [phone] Sonia Russell CRNP [address] [address] Test Results Imaging Study Allergies Active Allergy Reactions Criticality Noted Date Comments Diphenhydramine 09/03/2018 Epinephrine Other (Please comment) 07/03/2023 Propranolol Hcl 09/29/2010 "TIA" - like reactions Lisinopril Cough 08/04/2008 Mepivacaine Hcl 06/30/2008 With epi: whole face sagged Simvastatin 12/25/2012 Myalgia-nl CK documented as of this encounter (statuses as of 04/03/2024) Medications Medication Sig Dispensed Refills Start Date End Date Status RICKTOGOVIND MORENO MISCIndications:DM type 2, goal A1c below [...] Capsule Take 1 Capsule by mouth once. 0 Active Atorvastatin Calcium 80 MG Oral Tablet (Lipitor) Take 1 Tablet by mouth every afternoon. 30 Tablet 0 3 Active Losartan Potassium 25 MG Oral Tablet (Cozaar) Take 1 Tablet by mouth in the morning. 30 Tablet 0 3 Active Acetaminophen 325 MG Oral Tablet (Tylenol) Take 2 Tablets by mouth every 8 hours as needed for Pain, Moderate. 0 Active Hydrocortisone 1 % External Cream Apply topically to affected area daily as needed for Hemorrhoids. Apply to hemorhoids 0 3 Active Metoprolol Tartrate 50 MG Oral Tablet (Lopressor) Take 0.5 Tablets by mouth in the morning and 0.5 Tablets before bedtime. 0 3 Active Clotrimazole-Betame thasone 1-0.05 % External [...] hemoglobin A1c goal of less than 7.0% ([facility]) TAKE 1 TABLET BY MOUTH ONCE DAILY [...] as of this encounter (statuses as of 04/03/2024) Active Problems Problem Noted Date Diagnosed Date [...] as of this encounter (statuses as of 04/03/2024) Resolved Problems Problem Noted Date Diagnosed Date [...] nuclear stress test 05/08/2016 06/12/2017 Overview: 05/04-at [place] card++++ B12 deficiency 08/12/2015 06/12/2017 Overview: b12-231, [...] 5 yrs-Mely. Noel scope 02/28/2010 Dr. Lynn, [place] internal hemorrhoid, normal colon, repeat 5 years [...] as of this encounter (statuses as of 04/03/2024) Immunizations Name Administration Dates Next Due PPD [...] as of this encounter Miscellaneous Notes * Addendum Note - Sonia Russell CRNP - 04/03/2024 1:30 PM EDTAddended by: SONIA RUSSELL on: 04/03/2024 01:30 PM Modules accepted: Orders * Telephone Encounter - Rosalba Manjarrez MED ASSIST - 04/03/2024 11:17 AM EDT Patient aware and verbalized understanding. Pt would like referral as it still bothers her to walk. * Telephone Encounter - Snoia Russell CRNP - 04/03/2024 10:17 AM EDT XR of neck, shoulder and hip show no acute injury, some degenerative changes. XR of heel does show a heel spur. I can refer to podiatry if the pain in her heel is still bothersome. She can also wear a shoe with good cushioning to help relieve pain. documented in this encounter Plan of Treatment Upcoming Encounters Date Type Department Care Team (Late st Contact Info) Description 04/18/2024 1:50 PM EDT Anticoagulation Pharmacy, [place] [address] [phone] Pharmacist1, [facility] [place] [address] [place] [address] 06/05/2024 1:40 PM EDT Office Visit Podiatry, [facility] [address] [place], [place] [phone] Azul Nye, [facility] [address] [place], [place] [phone] 06/23/2024 1:30 PM EDT Nurse Only Ancillary, [place] [address] [place] [address] [place], Nurse Annual [facility]ness [address] [place] [address] [place] [address] 08/28/2024 6:00 PM EDT Office Visit [facility] 21 [facility] [place] [address] Jag Kovacs MD [facility] [phone] Scheduled Procedures Name Priority Associated Diagnoses Date/Ti me COLONOSCOPY FLEXIBLE PROXIMAL DIAGNOSTIC Recall Special screening for malignant neoplasms, colon GERD (gastroesophageal reflux disease) ESOPHAGOGASTRODUODENOSCOPY ( EGD), FLEXIBLE, TRANSORAL, DIAGNOSTIC Recall Special screening for malignant neoplasms, colon GERD (gastroesophageal reflux disease) Scheduled Referrals Name Type Priority Associated Diagnoses Orde r Schedule PODIATRY REFERRAL OP Referral Within 10 days (routine) Calcaneal spur, unspecified laterality Ordered: 04/03/2024 Health Maintenance Due Date Last Done Comments [...] as of this encounter Visit Diagnoses Diagnosis Calcaneal spur, unspecified laterality- Primary documented in this encounter Advance Directives Latest Code Status on File Code Status Date Activated Date Inactivated Comments Full Code 12/04/2022 10:59 PM 12/07/2022 4:31 PM This order reflects the patients wishes and were consensually agreed upon. Question Answer Comments Discussion of Advance Directives occurred with: Patient Code Status History Code Status Date Activated Date Inactivated Comments Full Code 12/04/2022 10:30 PM 12/04/2022 10:59 PM Thi s order reflects the patients wishes and were consensually agreed upon. Question Answer Comments Discussion of Advance Directives occurred with: Family Full Code 11/29/2022 3:18 PM 12/01/2022 6:05 PM This order reflects the patients wishes and were consensually agreed upon. Question Answer Comments Discussion of Advance Directives occurred with: Family Full Code 07/27/2021 5:50 AM 07/31/2021 4:15 PM This o rder reflects the patients wishes and were consensually agreed upon. Question Answer Comments Discussion of Advance Directives occurred with: Not Discussed Full Code 04/06/2019 1:47 PM 04/07/2019 10:00 PM This order reflects the patients wishes and were consensually agreed upon. Question Answer Comments Discussion of Advance Directives occurred with: Patient Care Teams Pedicurist Relationship Specialty Start Date End Date Jag Kovacs MD [address] [address] PCP - General Family Medicine 08/05/21 documented as of this encounter
--- OUTSIDE RECORDS SUMMARY | 2024-08-21 14:14 | External Medical Summary | Summary of Care ---
Author Name Unknown Organization [facility] Address [address] [facility] [place] [address] Phone [phone] Care Team Providers Care Embroidery Specialist Name Role Phone Jag Kovacs MD Primary Care Provider Reason for Visit * Reason Onset Date Comments Test Results Imaging Study 04/03/2024 Encounter Details Date Type Department Care Team (Late st Contact Info) Description 04/03/2024 Telephone [facility] 21 [facility] [place] [address] Sonia Leon CRNP [address] [place] [address] Test Results Imaging Study Allergies Active [...] nuclear stress test 05/08/2016 06/12/2017 Overview: 05/04-at [facility] [employer] card++++ B12 deficiency 08/12/2015 06/12/2017 Overview: b12-231, [...] Palpitations 09/27/2012 06/12/2017 Overview: 09/30- Holter -nml>nl /16 Other screening mammogram 09/10/2012 Overview: Neg--08/30;;10/01;10/02;;10/04/15, Family [...] 5 yrs-Mely. C scope 02/28/2010 Dr. Lynn, [place] internal hemorrhoid, normal colon, repeat 5 years [...] encounter Miscellaneous Notes * Telephone Encounter - Rosalba Manjarrez MED ASSIST - 04/03/2024 11:17 AM EDT Patient aware and verbalized understanding. Pt would like referral as it still bothers her to walk. * Telephone Encounter - Sonia Leon CRNP - 04/03/2024 10:17 AM EDT XR [...] Description 04/18/2024 1:50 PM EDT Anticoagulation Pharmacy, [place] [address] [phone] Pharmacist1, [facility] [place] [address] [address] 06/05/2024 1:40 PM EDT Office Visit Podiatry, [address] [place] [address] Azul Nye, DPM [address] [facility] [place] [address] 06/23/2024 1:30 PM EDT Nurse Only Ancillary, [place] [address] [place] [address] [place], Nurse Annual [facility]ness [address] [place] [address] 08/28/2024 6:00 PM EDT Office Visit [facility], [place] [address] [address] Jag Kovacs MD [address] [phone] Scheduled Procedures Name Priority Associated Diagnoses Date/Ti [...] filedocumented as of this encounter Advance Directives Latest Code Status [...] Advance Directives occurred with: Patient Care Teams Embroidery Specialist Relationship Specialty Start Date End Date Jag Kovacs MD [address] [address] PCP - General Family Medicine 08/05/21 documented as of this encounter
--- OUTSIDE RECORDS SUMMARY | 2024-08-21 14:14 | External Medical Summary | Summary of Care ---
Author Name Unknown Organization [facility] Address [address] [place] [facility] [place] [address] Phone [phone] Care Team Providers Care Picture Painter Name Role Phone Jag Kovacs MD Primary Care Provider Reason for Visit * Reason Onset Date Comments Test Results Imaging Study 04/03/2024 Encounter Details Date Type Department Care Team (Late st Contact Info) Description 04/03/2024 Telephone [facility] 21 [place] [address] Sonia Leon CRNP 21 [place] [address] Test Results Imaging Study Allergies Active [...] nuclear stress test 05/08/2016 06/12/2017 Overview: 05/04-at [employer] card++++ B12 deficiency 08/12/2015 06/12/2017 Overview: b12-231, [...] 5 yrs-Mely. C scope 02/28/2010 Dr. Lynn, [place] internal hemorrhoid, normal colon, repeat 5 [...] encounter Miscellaneous Notes * Telephone Encounter - Sonia Leon CRNP [...] Description 04/18/2024 1:50 PM EDT Anticoagulation Pharmacy, [place] [address] [address] Pharmacist1, [facility] [place] [address] [address] [address] 06/05/2024 1:40 PM EDT Office Visit Podiatry, [facility] [address] [place] [address] Azul Nye DPM 400 [facility] [place] [address] 06/23/2024 1:30 PM EDT Nurse Only [facility], [address] [address] Anju Nurse Annual [facility] [address] [place] [address] 08/28/2024 6:00 PM EDT Office Visit [facility] [address] [address] Jag Koavcs MD [address] [address] Scheduled Procedures Name Priority Associated Diagnoses Date/Ti [...] Advance Directives occurred with: Patient Care Teams Picture Painter Relationship Specialty Start Date End Date Jag Kovacs MD [address] [address] PCP - General Family Medicine 08/05/21 documented as of this encounter
--- OUTSIDE RECORDS SUMMARY | 2024-08-21 14:14 | External Medical Summary | Summary of Care ---
Author Name Unknown Organization [facility] Address [address] [place] [address] Phone [phone] Care Team Providers Care Furnace Door Tender Name Role Phone Jag Kovacs MD Primary Care Provider Reason for Visit * Reason Comments Routine Exam C/O of right heel pa in. Images in epic. Pt uses a wheelchair and uses a walker at home * Evaluate & Treat - Unlimited Visits (Within 10 days (routine)) - Authorized Specialty Diagnoses / Procedures Referred By Bernard t Referred To Contact Podiatry Diagnoses Calcaneal spur, unspecified laterality Sonia Leon CRNP 21 [place] [address] Referral ID Status Reason Start Date Expiration Date Visits Requested Visits Authorized [id number] Authorized Specialty Services Required 04/03/[phone] Encounter Details Date Type Department Care Team (Late st Contact Info) Description 05/15/2024 1:00 PM EDT Office Visit Podiatry, [facility] [phone] Azul Nye DPM 400 [facility] [place] [phone] Pain of right heel*; Plantar fasciitis of right foot Allergies Active Allergy Reactions Criticality Noted Date Comments Diphenhydramine 09/03/2018 Epinephrine Other (Please comment) 07/03/2023 Propranolol Hcl 09/29/2010 "TIA" - like reactions Lisinopril Cough 08/04/2008 Mepivacaine Hcl 06/30/2008 With epi: whole face sagged Simvastatin 12/25/2012 Myalgia-nl CK documented as of this encounter (statuses as of 05/15/2024) Medications Medication Sig Dispensed Refills Start Date [...] as of this encounter (statuses as of 05/15/2024) Active Problems Problem Noted Date Diagnosed Date [...] no ocular complications 05/28/12 DM Self Mgmt: Diet/Exercise--DrBejohn- 07/05/2009 FBS 159, A1C 6.4 ICD-10 update of inactive term documented as of this encounter (statuses as of 05/15/2024) Resolved Problems Problem Noted Date Diagnosed Date [...] nuclear stress test 05/08/2016 06/12/2017 Overview: 05/04-at [employer] card++++ B12 deficiency 08/12/2015 06/12/2017 Overview: b12-231, [...] EH--rpt 5 yrs-Mely. C scope 02/28/2010 Dr. Lynn [place] internal hemorrhoid, normal colon, repeat 5 [...] as of this encounter (statuses as of 05/15/2024) Immunizations Name Administration Dates Next Due PPD [...] Progress Notes * Azul Nye, DPM - 05/15/2024 1:00 PM EDT Podiatry Established Note [facility] Name: Alka Lawson : 1940 Date: 05/15/2024 REASON FOR VISIT: right heel pain SUBJECTIVE: This patient is a 84 year old female who presents today for right heel pain. I typically see her for diabetic foot care. She reports a several month history of right heel pain. Pain is mostly noted with pressure and she notes pain with the first few steps out of bed. She has not tried any treatment. She does have type 2 DM, sugars are often in the 150's. 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 >refer-sleep cl eval-[facility] sleep study>08/12/15--no osas, -fu 09/02---rec O2 defers Obesity, Class III, BMI 40-49.9 (morbid obesity) ([facility]) 05/03/2010 Per Obesity Protocol, #19 ICD-10 update of inactive term Pneumonia due to COVID-19 virus 07/27/2021 Severe obesity with body mass index (BMI) of 35.0 to 35.9 and comorbidity (HCC) 05/11/2011 Stroke ([facility]) Trochanteric bursitis of right hip 11/27/2012 Urgency incontinence 10/02/2014 Varicose vein of leg 05/28/2012 Mild lt leg ALLERGIES: Review of patient's allergies indicates: Allergen Reactions Diphenhydramine Epinephrine Other (Please comment) Inderal [Propranolol Hcl] "TIA" - like reactions Lisinopril Cough Mepivacaine Hcl With epi: whole face sagged Zocor [Simvastatin] Myalgia-nl CK REVIEW OF SYSTEMS: CONSTITUTIONAL: No fever FOCUSED PODIATRIC EXAM: Vascular: Pedal pulses palpable including DP and PT 2/4, right. Capillary refill time is less than 5 seconds to toes 1-5 bilaterally. Non pitting edema noted to the lower legs. No increase in warmth. Absence of pedal hair growth noted. Neurologic: Sensation (light touch) intact to the right foot Musculoskeletal: Pain is reported with palpation of the right plantar foot, central and medial heel. Fat pad atrophynoted. Dermatological: Skin temperature, texture, and turgor are within normal limits. No open lesions. DIAGNOSTIC STUDIES: Hemoglobin AIC Results: Lab Results [...] - [facility] 6.3 (H) 09/13/2022 12:45 PM X-rays, right heel, 03/27/2024 This includes two non weight bearing x-rays heel axial and lateral. Small plantar and posterior calcaneal enthesopathies noted on the lateral view. No evidence of fracture. ASSESSMENT: 1. Pain of right heel 2. Plantar fasciitis of right foot PLAN: I personally reviewed right heel x-rays as above and most recent [id number]. I recommended against a cortisone injection today. I discussed topical voltaren gel as well as gel cups and stretching which nurse will dispense today. She has a follow up in a couple weeks and we can recheck this then. Follow up: 3 months documented in this encounter Nursing Notes * Trang Hopkins LPN - 05/15/2024 12:52 PM EDT Chief Complaint Patient presents with Routine Exam C/O of right heel pain. Images in epic. Pt uses a wheelchair and uses a walker at home Patient was instructed to not get up [...] Care Team (Late st Contact Info) Description 05/16/2024 1:30 PM EDT Anticoagulation Pharmacy, [place] [address] [place] [address] [address] Pharmacist1, [facility] [place] [address] [place] [address] [address] [address] 06/05/2024 1:40 PM EDT Office Visit Podiatry, [facility] [address] [facility] [address] Azul Nye DPM 400 [facility] [place] [phone] 06/23/2024 1:30 PM EDT Nurse Only Ancillary, [place] [address] [facility] [address] Anju, Nurse Annual Wellness [address] [place] [address] 08/28/2024 6:00 PM EDT Office Visit [facility], [place] [address] [address] Jag Kovacs MD [address] [address] Scheduled Procedures Name Priority Associated Diagnoses Date/Ti [...] as of this encounter Visit Diagnoses Diagnosis Pain of right heel- Primary Pain in limb Plantar fasciitis of right foot Plantar fascial fibromatosis documented in this encounter Advance Directives * [...] Advance Directives occurred with: Patient Care Teams Furnace Door Tender Relationship Specialty Start Date End Date Jag Kovacs MD [address] [phone] PCP - General Family Medicine 08/05/21 documented as of this encounter
--- OUTSIDE RECORDS SUMMARY | 2024-08-21 14:14 | External Medical Summary | Summary of Care ---
Author Name Unknown Organization [facility] Address [address] [place] [facility] [place] [place] [place] [address] Phone [phone] Care Team Providers Care Water Supervisor Name Role Phone Jag Kovacs MD Primary Care Provider Reason for Referral * Evaluate & Treat - Unlimited Visits (Within 10 days (routine)) - Authorized Specialty Diagnoses / Procedures Referred By Bernard jo Referred To Contact Podiatry Diagnoses Calcaneal spur, unspecified laterality Sonia Russell CRNP [address] [address] Referral ID Status Reason Start Date Expiration Date Visits Requested Visits Authorized [id number] Authorized Specialty Services Required 04/03/2024 999 999 [...] hemoglobin A1c goal of less than 7.0% ([facility]) TAKE 1 TABLET BY MOUTH ONCE [...] nuclear stress test 05/08/2016 06/12/2017 Overview: 05/04-at [employer] card++++ B12 deficiency 08/12/2015 06/12/2017 Overview: b12-231, [...] 5 yrs-Mely. Noel scope 02/28/2010 Dr. Lynn, [place] internal hemorrhoid, normal colon, repeat 5 years [...] to walk. * Telephone Encounter - Sonia Russell CRNP - 04/03/2024 10:17 AM EDT [...] Description 04/18/2024 1:50 PM EDT Anticoagulation Pharmacy, [place] [address] [place] [address] [phone] Pharmacist1, [facility] [place] [address] [place] [address] 06/05/2024 1:40 PM EDT Office Visit Podiatry, [facility] [address] [place], [place] [phone] Azul Nye, [facility] [address] [place], [place] [phone] 06/23/2024 1:30 PM EDT Nurse Only Ancillary, [place] [address] [address] [place] [address] [place], Nurse Annual Wellness [address] [place] [address] [place] [address] 08/28/2024 6:00 PM EDT Office Visit [facility] 21 [facility] [place] [address] Jag Kovacs MD 21 [facility] [phone] Scheduled Procedures Name Priority Associated Diagnoses Date/Ti [...] Advance Directives occurred with: Patient Care Teams Water Supervisor Relationship Specialty Start Date End Date Jag Kovacs MD [address] [address] PCP - General Family Medicine 08/05/21 documented as of this encounter
--- OUTSIDE RECORDS SUMMARY | 2024-08-21 14:14 | External Medical Summary | Summary of Care ---
Author Name Unknown Organization [facility] Address [address] [place] [place] [address] Phone [phone] Care Team Providers Care Fountain Server Name Role Phone Jag Kovacs MD Primary Care Provider Reason for Referral * Evaluate & Treat - Unlimited Visits (Within 10 days (routine)) - Authorized Specialty Diagnoses / Procedures Referred By Bernard jo Referred To Contact Podiatry Diagnoses Calcaneal spur, unspecified laterality Sonia Russell CRNP [address] [id number] Referral ID Status Reason Start Date Expiration Date Visits Requested Visits Authorized [id number] Authorized Specialty Services Required 04/03/2024 999 999 [...] hemoglobin A1c goal of less than 7.0% (FORMERLY [facility]) TAKE 1 TABLET BY MOUTH ONCE DAILY [...] nuclear stress test 05/08/2016 06/12/2017 Overview: 05/04-at [place] card++++ B12 deficiency 08/12/2015 06/12/2017 Overview: [...] 5 yrs-Mely. Noel scope 02/28/2010 Dr. Lynn, [place] internal hemorrhoid, normal colon, repeat 5 years [...] encounter Miscellaneous Notes * Telephone Encounter - Ivonne Mario OSA - 04/03/2024 3:42 PM EDT Scheduled May 15 * Addendum Note - Sonia Russell CRNP [...] Description 04/18/2024 1:50 PM EDT Anticoagulation Pharmacy, [place] [address] [place] [address] Pharmacist1, [facility] [place] [address] [place] [address] 05/15/2024 1:00 PM EDT Office [address]iatry, [address] [address] Azul yNe DPM [address] [place], [place] [address] [address] 06/05/2024 1:40 PM EDT Office [address] Podiatry, [address] [address] Azul Nye DPM [address] [place], [place] [address] [address] 06/23/2024 1:30 PM EDT Nurse Only Ancillary, [place] [place] [address] Anju Nurse Annual Wellness [address] [place] [address] 08/28/2024 6:00 PM EDT [facility] [address] [phone] Jag Kovacs MD [address] [address] Scheduled Procedures Name Priority Associated Diagnoses Date/Ti [...] Advance Directives occurred with: Patient Care Teams Fountain Server Relationship Specialty Start Date End Date Jag Kovacs MD [address] [phone] PCP - General Family Medicine 08/05/21 documented as of this encounter
--- OUTSIDE RECORDS SUMMARY | 2024-08-21 14:14 | External Medical Summary | Summary of Care ---
Author Name Unknown Organization [facility] Address [address] [place] [facility] [place] [address] Phone [phone] Care Team Providers Care Roll Tester Name Role Phone Jag Kovacs MD Primary Care Provider Reason for Visit * Reason Comments Dosage Adjustment In Person (Anticoag Cl inic) Encounter Details Date Type Department Care Team (Latest Contact Info) Description 04/18/2024 1:50 PM EDT Anticoagulation Pharmacy, [place] [address] [phone] Pharmacist1, [facility] [place] [address] [address] Anticoagulation management encounter*; Hemiplegia, post-stroke (HCC); Paroxysmal atrial fibrillation (HCC) Allergies Active Allergy Reactions Criticality Noted Date Comments Diphenhydramine 09/03/2018 Epinephrine Other (Please comment) 07/03/2023 Propranolol Hcl 09/29/2010 "TIA" - like reactions Lisinopril Cough 08/04/2008 Mepivacaine Hcl 06/30/2008 With epi: whole face sagged Simvastatin 12/25/2012 Myalgia-nl CK documented as of this encounter (statuses as of 04/18/2024) Medications Medication Sig Dispensed Refills Start Date [...] as of this encounter (statuses as of 04/18/2024) Active Problems Problem Noted Date Diagnosed Date [...] as of this encounter (statuses as of 04/18/2024) Resolved Problems Problem Noted Date Diagnosed Date [...] nuclear stress test 05/08/2016 06/12/2017 Overview: 05/04-at [place] card++++ B12 deficiency 08/12/2015 06/12/2017 Overview: b12-231, [...] Overview: 03/03--nml, sm IH, prom EH--rpt 5 yrs-eMly. C scope 02/28/2010 Dr. Lynn, [place] internal hemorrhoid, normal colon, repeat 5 years [...] as of this encounter (statuses as of 04/18/2024) Immunizations Name Administration Dates Next Due PPD [...] Notes * Jose Martin Castellon RPh - 04/18/2024 1:36 PM EDT Medication Therapy Disease Management - Anticoagulation Patient: Alka Lawson | : 1940 Subjective Patient-Reported Symptoms: Patient Findings Negatives: Signs/symptoms of thrombosis, Signs/symptoms of bleeding, Change in health, Change in alcohol use, Change in activity, Upcoming invasive procedure, Missed doses, Extra doses, Change in medications, Change in diet/appetite, Bruising Objective Current Warfarin Dose As of 04/18/2024 INR Result As of 04/18/2024 INR goal: 2.0-3.0 INR used for dosin.2 (04/18/2024) Assessment & Plan Warfarin Plan As of 04/18/2024 Full warfarin instructions: 2.5 mg every Mon, Wed, Fri; 5 mg all other days No change documented: Jose Martin Castellon RPh Next INR check: 05/16/2024 Repeat PT/INR in 4 week(s) Weekly dose: not changed Additional Dosing Information: Jose Martin Castellon RPh Clinical Pharmacist 04/18/2024, 1:36 PM documented in this encounter Plan of Treatment Upcoming Encounters Date Type Department Care Team (Late st Contact Info) Description 05/15/2024 1:00 PM EDT Office Visit Podiatry, [address] [place] [address] Azul Nye DPM [address] [facility] [place] [address] 05/16/2024 1:30 PM EDT Anticoagulation Pharmacy, [place] [address] [place] [address] [address] Pharmacist1, [facility] [place] [address] [phone] 06/05/2024 1:40 PM EDT Office Visit Podiatry, [facility] [address] Azul Nye DPM [address] [place] [address] 06/23/2024 1:30 PM EDT Nurse Only Ancillary, [place] [address] [address] [place] [address] [place], Nurse Annual Wellness [address] [facility] [address] [place] [address] 08/28/2024 6:00 PM EDT Office Visit [facility] [address] [place] [phone] Jag Kovacs MD 21 [place] [address] Scheduled Procedures Name Priority Associated Diagnoses Date/Ti [...] Comments INR FINGERSTICK, POINT OF CARE STAT 04/18/2024 1:41 PM EDT Hemiplegia, post-stroke (HCC) Paroxysmal atrial fibrillation (HCC) Anticoagulation management encounter documented in this encounter Results * INR FINGERSTICK, POINT OF CARE (04/18/2024 1:41 PM EDT) Fingerstick INR 2.2 INR 1:58 PM EDT LABORATORY [address] Blood 04/18/2024 1:41 PM EDT 04/18/2024 1:58 PM EDT Narrative LABORATORY AGUA DULCE 46-89 - 04/18/2024 1:58 PM EDT Therapeutic ranges for non-operative patients: Prophylaxsis/treatment of DVT: (Range:2.0-3.0) Treatment of pulmonary embolism:(Range:2.0-3.0) Prevention of systemic embolism from: -tissue heart valves -acute myocardial infarction -valvular heart disease -atrial fibrillation (Range: 2.0-3.0) Mechanical prosthetic valves: (Range: 2.5-3.5) Jose Martin Castellon Formerly [facility] LAB POINT OF CARE TE ST DOCKED DEVICE UNSOLICITED RESULTS Performing Organization Address City/State/[facility] Co de Phone Number [address] [phone] documented in this encounter Visit Diagnoses [...] 5:50 AM 07/31/2021 4:15 PM This order r eflects the patients wishes and were consensually agreed upon. Question Answer Comments Discussion of Advance Directives occurred with: Not Discussed * Full Code Date Activated Date Inactivated Comments 04/06/2019 1:47 PM 04/07/2019 10:00 PM This order reflects the patients wishes and were consensually agreed upon. Question Answer Comments Discussion of Advance Directives occurred with: Patient Care Teams Roll Tester Relationship Specialty Start Date End Date Jag Kovacs MD [address] [address] PCP - General Family Medicine 08/05/21 documented as of this encounter
--- OUTSIDE RECORDS SUMMARY | 2024-08-21 14:14 | External Medical Summary ---
Author Name Unknown Address Unknown Organization : Laboratory Report Ordering Provider Test Date Status AYLIN MARK 04/18/2024 13:41:59 Final Therapeutic ranges for non-o perative patients:
Prophylaxsis/treatment of DVT: (Range:2.0-3.0)
Treatment of pulmonary embolism:(Range:2.0-3.0)
Prevention of systemic embolism from:
-tissue heart valves
-acute myocardial infarction
-valvular heart disease
-atrial fibrillation
(Range: 2.0-3.0)
Mechanical prosthetic valves: (Range: 2.5-3.5) Observation Date Value Abnormality Reference (Units ) Status INR in Capillary blood by Coagulation assay 04/18/2024 13:41:59 2.2 (INR) Final Performing Location
--- OUTSIDE RECORDS SUMMARY | 2024-08-21 14:14 | External Medical Summary | Summary of Care ---
Author Name Unknown Organization [facility] Address [address] [facility] [place] [address] Phone [phone] Care Team Providers Care Endless Belt Finisher Name Role Phone Jag Kovacs MD Primary Care Provider Reason for Visit * Reason Comments Dosage Adjustment In Person (Anticoag Cl inic) Encounter Details Date Type Department Care Team (Latest Contact Info) Description 04/18/2024 1:50 PM EDT Anticoagulation Pharmacy, [place] [address] [phone] Pharmacist1, [facility] [place] [address] [place] [address] Anticoagulation management encounter*; Hemiplegia, [...] nuclear stress test 05/08/2016 06/12/2017 Overview: 05/04-at [place] card++++ B12 deficiency 08/12/2015 06/12/2017 Overview: b12-231, [...] 5 yrs-Mely. C scope 02/28/2010 Dr. Lynn, [place] internal hemorrhoid, normal colon, repeat 5 years [...] 05/15/2024 1:00 PM EDT Office Visit Podiatry, [address] [place] [address] Azul Nye DPM [address] [facility] [place] [address] 05/16/2024 1:30 PM EDT Anticoagulation Pharmacy, [place] [address] [place] [address] Pharmacist1, [facility] [place] [address] [phone] 06/05/2024 1:40 PM EDT Office Visit Podiatry, [facility] [address] [facility] [address] Azul Nye DPM 400 [place] [address] 06/23/2024 1:30 PM EDT Nurse Only Ancillary, [place] [address] [address] [place] [address] [place], Nurse Annual Wellness [address] [facility] [address] [place] [address] 08/28/2024 6:00 PM EDT Office Visit [facility] 21 [place] [phone] Jag Kovacs MD 21 [place] [address] Scheduled Procedures Name Priority Associated Diagnoses Date/Ti [...] INR 2.2 INR 1:58 PM EDT LABORATORY [address] Blood 04/18/2024 1:41 PM EDT 04/18/2024 1:58 PM EDT Narrative LABORATORY H[place] 46-89 - 04/18/2024 1:58 PM EDT Therapeutic ranges for non-operative patients: Prophylaxsis/treatment of DVT: (Range:2.0-3.0) Treatment of pulmonary embolism:(Range:2.0-3.0) Prevention of systemic embolism from: -tissue heart valves -acute myocardial infarction -valvular heart disease -atrial fibrillation (Range: 2.0-3.0) Mechanical prosthetic valves: (Range: 2.5-3.5) Jose Martin Castellon Formerly [facility] LAB POINT OF CARE TE ST DOCKED DEVICE UNSOLICITED RESULTS Performing Organization Address City/State/[facility] Co de Phone Number [address] [phone] documented in this encounter Visit Diagnoses Diagnosis [...] Advance Directives occurred with: Patient Care Teams Endless Belt Finisher Relationship Specialty Start Date End Date Jag Kovacs MD [address] [phone] PCP - General Family Medicine 08/05/21 documented as of this encounter
--- OUTSIDE RECORDS SUMMARY | 2024-08-21 14:15 | External Medical Summary | Summary of Care ---
Author Name Unknown Organization [facility] Address [address] [facility] [place] [address] Phone [phone] Care Team Providers Care Database Design Analyst Name Role Phone Jag Kovacs MD Primary Care Provider Reason for Visit * Reason Comments Acute Pt c/o back, shoulde r, neck and R leg pain from fall on 03/22. Denies hitting head. No OTC medications. Encounter Details Date Type Department Care Team (Late st Contact Info) Description 03/27/2024 3:00 PM EDT Office Visit [facility] [address] [facility] [place] [address] Sonia Leon CRNP 21 [place] [address] Fall, initial encounter*; Suspected urinary tract infection Allergies Active Allergy Reactions Criticality Noted Date Comments Diphenhydramine 09/03/2018 Epinephrine Other (Please comment) 07/03/2023 Propranolol Hcl 09/29/2010 "TIA" - like reactions Lisinopril Cough 08/04/2008 Mepivacaine Hcl 06/30/2008 With epi: whole face sagged Simvastatin 12/25/2012 Myalgia-nl CK documented as of this encounter (statuses as of 03/27/2024) Medications Medication Sig Dispensed Refills Start Date [...] as of this encounter (statuses as of 03/27/2024) Active Problems Problem Noted Date Diagnosed Date [...] as of this encounter (statuses as of 03/27/2024) Resolved Problems Problem Noted Date Diagnosed Date [...] nuclear stress test 05/08/2016 06/12/2017 Overview: 05/04-at [place] card++++ B12 deficiency 08/12/2015 06/12/2017 Overview: b12-231, [...] as of this encounter (statuses as of 03/27/2024) Immunizations Name Administration Dates Next Due PPD [...] Sign Reading Time Taken Comments Blood Pressure 126/72 03/27/2024 3:00 PM EDT Pulse 71 03/27/2024 3:00 PM EDT Temperature 36.8 C (98.3 F) 03/27/2024 3:00 PM ED T Respiratory Rate 16 03/27/2024 3:00 PM EDT Oxygen Saturation 97% 03/27/2024 3:00 PM EDT Inhaled Oxygen Concentration - - Weight 82.6 kg (182 lb 3.2 oz) 03/27/2024 3:00 P M EDT Height - - Body Mass Index 38.08 02/07/2024 5:40 PM EDT documented in this encounter Functional [...] as of this encounter Progress Notes * Sonia Leon CRNP - 03/27/2024 3:19 PM EDT Images from the original note were not included. History of Present Illness Alka Lawson is a 83 year old female that presents for Acute (Pt c/o back, shoulder, neck and R leg pain from fall on 03/22. Denies hitting head. No OTC medications. ) Alka presents to the clinic after a fall five days ago. She was shutting her curtain and she lost her balance and fell onto her buttocks on the hard floor. Her son came and helped her off the floor.Since the fall she has been having pain in her right hip, R heel, R shoulder and back. She has a bruise on her right flank. She denies LOC or striking her head. She reports that when she fell it feltlike her "hip jammed into my iliac crest". She takes Tylenol and gabapentin for pain. She is on Coumadin. Review of Systems Constitutional: Positive for activity change. Negative for fever. Respiratory: Negative for chest tightness and shortness of breath. Cardiovascular: Negative for chest pain. Gastrointestinal: Negative for abdominal pain, nausea and vomiting. Musculoskeletal: Positive for arthralgias. Skin: Positive for color change. Neurological: Negative for syncope and headaches. Physical Exam BP 126/72 | Pulse 71 | Temp 36.8 C (98.3 F) (Tympanic) | Resp 16 | Wt 82.6 kg (182 lb 3.2 oz) |SpO2 97% | BMI 38.08 kg/m | BSA 1.84 m Physical Exam Vitals and nursing note reviewed. HENT: Head: Normocephalic. Right Ear: External ear normal. Left Ear: External ear normal. Nose: Nose normal. Neck: Comments: Area of pain and stiffness Cardiovascular: Heart sounds: Normal heart sounds, S1 normal and S2 normal. Pulmonary: Effort: Pulmonary effort is normal. Breath sounds: Normal breath sounds and air entry. Musculoskeletal: Cervical back: Pain with movement and muscular tenderness present. Decreased range of motion. Right lower le+ Pitting Edema present. Left lower le+ Pitting Edema present. Feet: Feet: Comments: Area of tenderness, no swelling or ecchymosis, no open areas Skin: Comments: 8 cm oblong area of ecchymosis, yellow, green and purple in color Neurological: Mental Status: She is alert. GCS: GCS eye subscore is 4. GCS verbal subscore is 5. GCS motor subscore is 6. Psychiatric: Attention and Perception: Attention normal. Mood and Affect: Mood normal. Speech: Speech normal. Behavior: Behavior normal. Thought Content: Thought content normal. Cognition and Memory: Cognition normal. Judgment: Judgment normal. I have reviewed most recent labs INR Assessment and Plan Fall, initial encounter (Primary) - XR HIP UNILAT 2-3 VIEWS INCLUDING AP PELVIS - XR SHOULDER, 2 OR MORE VIEWS - XR C SPINE 4-5 VIEWS - XR HEEL 2 OR MORE VIEWS Follow-up: Return if symptoms worsen or fail to improve. | Check-out note: Xrays, return as scheduled Wrap-Up Follow-up: Return if symptoms worsen or fail to improve. | Check-out note: Xrays, return as scheduled Time: I spent a total of 20-29 minutes (exact time 20 mins) on the date of service in preparation, delivery, and documentation of the care provided to Alka Lawson excluding any time spent in the performance of separately billed services. documented in this encounter Nursing Notes * Marifer Goldberg LPN - 03/27/2024 2:58 PM EDT Chief Complaint Patient presents with Acute Pt c/o back, shoulder, neck and R leg pain from fall on 03/22. Denies hitting head. No OTC medications. documented in this encounter Plan of Treatment Upcoming Encounters Date Type Department Care Team (Late st Contact Info) Description 04/18/2024 1:50 PM EDT Anticoagulation Pharmacy, [place] [address] [place] [address] Pharmacist1, [facility] [place] [address] [place] [address] 06/05/2024 1:40 PM EDT Office Visit Podiatry, [facility] [address] [place] [address] Azul Nye DP [address] [place] [address] 06/23/2024 1:30 PM EDT Nurse Only [facility], [place] [id number] [place] [address] [place], Nurse Annual Wellness [address] [place] [address] 08/28/2024 6:00 PM EDT Office Visit [facility] [address] [phone] Jag Kovacs MD [address] [phone] Pending Results Name Type Priority Associated Diagnoses Date /Time XR HIP UNILAT 2-3 VIEWS INCLUDING AP PELVIS Medical Imaging Routine Fall, initial encounter 03/27/2024 4:25 PM EDT XR SHOULDER, 2 OR MORE VIEWS Medical Imaging Routine Fall, initial encounter 03/27/2024 4:25 PM EDT XR C SPINE 4-5 VIEWS Medical Imaging Routine Fall, initial encounter 03/27/2024 4:25 PM EDT XR HEEL 2 OR MORE VIEWS Medical Imaging Routine Fall, initial encounter 03/27/2024 4:25 PM EDT URINALYSIS WITH MICROSCOPIC EXAM Lab Routine Suspected urinary tract infection 03/27/2024 4:35 PM EDT CULTURE, URINE, QUANTITATIVE Lab Routine Suspected urinary tract infection 03/27/2024 4:35 PM EDT Scheduled Procedures Name Priority Associated Diagnoses Date/Ti [...] this encounter Visit Diagnoses Diagnosis Fall, initial encounter- Primary Suspected urinary tract infection documented in this encounter Advance Directives Latest [...] Advance Directives occurred with: Patient Care Teams Database Design Analyst Relationship Specialty Start Date End Date Jag Kovacs MD [address] [address] PCP - General Family Medicine 08/05/21 documented as of this encounter
--- OUTSIDE RECORDS SUMMARY | 2024-08-21 14:15 | External Medical Summary | Summary of Care ---
Author Name Unknown Organization [facility] Address [address] [facility] [place] [address] Phone [phone] Care Team Providers Care Scientific Technical Writer Name Role Phone Jag Kovacs MD Primary Care Provider Reason for Visit * Reason Comments Dosage Adjustment In Person (Anticoag Cl inic) Encounter Details Date Type Department Care Team (Latest Contact Info) Description 03/21/2024 1:50 PM EDT Anticoagulation Pharmacy, [place] [address] [place] [phone] Pharmacist1, [facility] [place] [address] [place] [address] Anticoagulation management encounter*; Hemiplegia, post-stroke (HCC); Paroxysmal atrial fibrillation (HCC) Allergies Active Allergy Reactions Criticality Noted Date Comments Diphenhydramine 09/03/2018 Epinephrine Other (Please comment) 07/03/2023 Propranolol Hcl 09/29/2010 "TIA" - like reactions Lisinopril Cough 08/04/2008 Mepivacaine Hcl 06/30/2008 With epi: whole face sagged Simvastatin 12/25/2012 Myalgia-nl CK documented as of this encounter (statuses as of 03/21/2024) Medications Medication Sig Dispensed Refills Start Date [...] as of this encounter (statuses as of 03/21/2024) Active Problems Problem Noted Date Diagnosed Date [...] as of this encounter (statuses as of 03/21/2024) Resolved Problems Problem Noted Date Diagnosed Date [...] nuclear stress test 05/08/2016 06/12/2017 Overview: 05/04-at [place] card++++ B12 deficiency 08/12/2015 06/12/2017 Overview: b12-231, [...] 5 yrs-Mely. C scope 02/28/2010 Dr. Lynn, [place] internal hemorrhoid, normal colon, repeat 5 years [...] as of this encounter (statuses as of 03/21/2024) Immunizations Name Administration Dates Next Due PPD [...] Notes * Jose Martin Castellon RPh - 03/21/2024 1:43 PM EDT Images from the original note [...] Bruising Objective Current Warfarin Dose As of 03/21/2024 Warfarin maintenance plan: 2.5 mg (2.5 mg x 1) every Wed; 5 mg (2.5 mg x 2) all other days INR Result As of 03/21/2024 INR goal: 2.0-3.0 INR used for dosin.5 (03/21/2024) Assessment & Plan Warfarin Plan As of 03/21/2024 Full warfarin instructions: 03/21: Hold; Otherwise 2.5 mg every Mon, Wed, Fri; 5 mg all other days Next INR check: 04/18/2024 Repeat PT/INR in 4 week(s) Weekly dose: decreased Declines immunizations Additional Dosing Information: Jose Martin Castellon RPh Clinical Pharmacist 03/21/2024, 1:43 PM documented in this encounter Plan of Treatment Upcoming Encounters Date Type Department Care Team (Late st Contact Info) Description 04/18/2024 1:50 PM EDT Anticoagulation Pharmacy, [place] [address] [place] [address] Pharmacist1, [facility] [place] [address] [place] [address] 06/05/2024 1:40 PM EDT Office Visit Podiatry, [facility] [address] [place] [address] Azul Nye DPM [address] [place] [address] 06/23/2024 1:30 PM EDT Nurse Only Ancillary, [place] [address] [place] [address] [place], Nurse Annual Wellness [address] [facility] [address] [place] [address] 08/28/2024 6:00 PM EDT Office Visit [facility] [address] [place] [phone] Jag Kovacs MD 21 [place] [address] Scheduled Orders Name Type Priority Associated Diagnoses Orde r Schedule PT INR Lab Routine Hemiplegia, post-stroke (HCC) Paroxysmal atrial fibrillation (HCC) Anticoagulation management encounter 26 Occurrences starting 03/21/2024 until 03/21/2025 INR FINGERSTICK, POINT OF CARE Point of Care Testing - Unsolicited Results STAT Hemiplegia, post-stroke (HCC) Paroxysmal atrial fibrillation (HCC) Anticoagulation management encounter Every 2 Weeks for 26 Occurrences starting 03/21/2024 until 03/21/2025 Scheduled Procedures Name Priority Associated Diagnoses Date/Ti me COLONOSCOPY FLEXIBLE PROXIMAL DIAGNOSTIC Recall Special screening for malignant neoplasms, colon GERD (gastroesophageal reflux disease) ESOPHAGOGASTRODUODENOSCOPY ( EGD), FLEXIBLE, TRANSORAL, DIAGNOSTIC Recall Special screening for malignant neoplasms, colon GERD (gastroesophageal reflux disease) Health Maintenance Due Date Last Done Comments Zoster Vaccines (2 of 3) 04/09/2012 02/13/2012 COVID-19 Vaccine ( - season) 2023 Colonoscopy 10/12/2023 10/12/2020, 09/20, 09/28/2017, [...] Diagnosis Comments INR FINGERSTICK, POINT OF CARE [place] 03/21/2024 1:46 PM EDT documented in this encounter Results * INR FINGERSTICK, POINT OF CARE (03/21/2024 1:46 PM EDT) Fingerstick INR 3.5 INR 1:47 PM EDT LABORATORY [address] Blood 03/21/2024 1:46 PM EDT 03/21/2024 1:47 PM EDT Narrative LABORATORY [place] 46-89 - 03/21/2024 1:47 PM EDT Therapeutic ranges for non-operative patients: Prophylaxsis/treatment of DVT: (Range:2.0-3.0) Treatment of pulmonary embolism:(Range:2.0-3.0) Prevention of systemic embolism from: -tissue heart valves -acute myocardial infarction -valvular heart disease -atrial fibrillation (Range: 2.0-3.0) Mechanical prosthetic valves: (Range: 2.5-3.5) [facility] [place] Pharmacist1 LAB PO INT OF CARE TEST DOCKED DEVICE UNSOLICITED RESULTS [place] [address] [address] [place] [address] documented in this encounter Visit Diagnoses Diagnosis Anticoagulation management encounter- Primary Encounter for therapeutic drug monitoring Hemiplegia, post-stroke (HCC) Hemiplegia affecting unspecified side, late effect of cerebrovascular disease Paroxysmal atrial fibrillation (HCC) Atrial fibrillation documented in this encounter Advance Directives Latest [...] Advance Directives occurred with: Patient Care Teams Scientific Technical Writer Relationship Specialty Start Date End Date Jag Kovacs MD 21 [place] [phone] PCP - General Family Medicine 08/05/21 documented as of this encounter
--- OUTSIDE RECORDS SUMMARY | 2024-08-21 14:15 | External Medical Summary | Summary of Care ---
Author Name Unknown Organization [facility] Address [address] [place] [facility] [place] [place] [address] Phone [phone] Care Team Providers Care Derrick Barge Operator Name Role Phone Jag Kovacs MD Primary Care Provider Reason for Visit * Reason Comments Acute Pt c/o back, shoulde r, neck and R leg pain from fall on 03/22. Denies hitting head. No OTC medications. Encounter Details Date Type Department Care Team (Late st Contact Info) Description 03/27/2024 3:00 PM EDT Office Visit [facility] 21 [facility] [place] [address] Sonia Leon CRNP 21 [facility] [place] [address] Fall, initial encounter* Allergies Active Allergy Reactions Criticality Noted Date [...] nuclear stress test 05/08/2016 06/12/2017 Overview: 05/04-at [place] card++++ B12 deficiency 08/12/2015 06/12/2017 Overview: b12-231, [...] 5 yrs-Mely. C scope 02/28/2010 Dr. Lynn, [place] internal hemorrhoid, normal colon, repeat 5 years [...] Description 04/18/2024 1:50 PM EDT Anticoagulation Pharmacy, [place] [address] [place] [address] Pharmacist1, [facility] [place] [address] [place] [address] 06/05/2024 1:40 PM EDT [facility] [address] [place] [address] Azul Nye DPM 400 [place] [address] 06/23/2024 1:30 PM EDT Nurse Only [facility], Anju [facility] [address] [facility] [address] [place], Nurse Annual Wellness [address] [place] [address] 08/28/2024 6:00 PM EDT Office Visit [address] [place] [address] Jag Kovacs MD 21 [place] [address] Pending Results Name Type Priority Associated Diagnoses Date /Time XR HIP UNILAT 2-3 VIEWS INCLUDING AP PELVIS Medical Imaging Routine Fall, initial encounter 03/27/2024 3:44 PM EDT XR SHOULDER, 2 OR MORE VIEWS Medical Imaging Routine Fall, initial encounter 03/27/2024 3:44 PM EDT XR C SPINE 4-5 VIEWS Medical Imaging Routine Fall, initial encounter 03/27/2024 3:44 PM EDT XR HEEL 2 OR MORE VIEWS Medical Imaging Routine Fall, initial encounter 03/27/2024 3:44 PM EDT Scheduled Procedures Name Priority Associated [...] Visit Diagnoses Diagnosis Fall, initial encounter- Primary documented in this encounter Advance Directives [...] Advance Directives occurred with: Patient Care Teams Derrick Barge Operator Relationship Specialty Start Date End Date Jag Kovacs MD 21 [place] [phone] PCP - General Family Medicine 08/05/21 documented as of this encounter
--- OUTSIDE RECORDS SUMMARY | 2024-08-21 14:15 | External Medical Summary | Summary of Care ---
Author Name Unknown Organization [facility] Address [address] [facility] [place] [address] Phone [phone] Care Team Providers Care Metal Mover Name Role Phone Jag Kovacs MD Primary Care Provider Reason for Visit * Reason Comments Acute Pt c/o back, shoulde r, neck and R leg pain from fall on 03/22. Denies hitting head. No OTC medications. Encounter Details Date Type Department Care Team (Late st Contact Info) Description 03/27/2024 3:00 PM EDT Office Visit [facility] [address] [facility] [place] [address] Sonia Leon CRNP 21 [place] [address] Fall, initial encounter*; Suspected urinary tract [...] nuclear stress test 05/08/2016 06/12/2017 Overview: 05/04-at [place] card++++ B12 deficiency 08/12/2015 06/12/2017 Overview: b12-231, [...] prom EH--rpt 5 yrs-Mely. C scope 02/28/2010 Adryna [place] internal hemorrhoid, normal colon, repeat 5 [...] Description 04/18/2024 1:50 PM EDT Anticoagulation Pharmacy, [place] [address] [place] [address] Pharmacist1, [facility] [place] [address] [place] [address] 06/05/2024 1:40 PM EDT Office Visit Podiatry, [facility] [address] [place] [address] Azul Nye DP [address] [place] [address] 06/23/2024 1:30 PM EDT Nurse Only [facility], [place] [address] [place] [address] [place], Nurse Annual Wellness [address] [place] [address] 08/28/2024 6:00 PM EDT Office Visit [facility] 21 [place] [address] Jag Kovacs MD 21 [place] [phone] Pending Results Name Type Priority Associated Diagnoses [...] Additional history exists DXA Scan 06/05/2026 06/05/2019, 1001/2012, 09/10/2012 DTaP,Tdap,and Td Vaccines (3 - Td [...] Advance Directives occurred with: Patient Care Teams Metal Mover Relationship Specialty Start Date End Date Jag Kovacs MD [address] [place] [address] PCP - General Family Medicine 08/05/21 documented as of this encounter
--- OUTSIDE RECORDS SUMMARY | 2024-08-21 14:15 | External Medical Summary ---
Author Name Unknown Address Unknown Organization K01:[facility] - [address] [facility] [address] Laboratory Report Ordering Provider Test Date Status JOSE ARMANDO PHAN 03/27/2024 16:35:38 Final <10,000 colonies/ml mixed no rmal surendra Observation Date Value Abnormality Reference (Units ) Status Bacteria identified in Specimen by Culture 03/27/2024 16:35:38 [id number]^KLEBSIELL A PNEUMONIAE Abnormal Final >100,000 colonies/mL Klebsie lla pneumoniae Performing Location [facility] - [address] [facility] [address] Ordering Provider Test Date Status JOSE ARMANDO PHAN 03/27/2024 16:35:38 Final Observation Date Value Abnormality Reference (Units ) Status Ampicillin + Sulbactam 03/27/2024 16:35:38 4 Susceptible Final Cefazolin 03/27/2024 16:35:38 <=4 Susceptible Final Cefepime susceptibility 03/27/2024 16:35:38 <=1 Susceptible Final Ceftriaxone suceptibility 03/27/2024 16:35:38 <=1 Susceptible Final Ciprofloxacin 03/27/2024 16:35:38 <=0.25 Susceptible Final Due to serious side effects, the FDA has advised against using Ciprofloxacin to treat uncomplicated UTIs and respiratory tract infections unless there are no alternative treatment options. Gentamicin susceptibility 03/27/2024 16:35:38 <=1 Susc eptible Final Nitrofurantoin susceptibility 03/27/2024 16:35:38 32 Susceptible Final Piperacillin + Tazobactamsusceptibility 03/27/2024 16:35:38 <=4 Susceptible Final TMP-SMZ susceptibility 03/27/2024 16:35:38 <=20 Suscept ible Final Test: Culture, Urine, Quanti tative
Specimen Source: Urine, Clean Catch
Specimen Type: Urine
Specimen Date: 03/27/2024 4:35 PM
Result Date: 03/30/2024 11:24 AM
Result Status: Final result
Abnormal: Yes
Resulting Lab: [facility]
[address]
[place] [address]

CULTURE

>100,000 colonies/mL Klebsiella pneumoniae (Abnormal)

<10,000 colonies/ml mixed normal surendra

SUSCEPTIBILITY

Klebsiella
pneumoniae
METHOD MICROBROTH
DILUTIONS

AMPICILLIN/SULBACTAM 4 Susceptible
CEFAZOLIN <=4 Susceptible
CEFEPIME <=1 Susceptible
CEFTRIAXONE <=1 Susceptible
CIPROFLOXACIN <=0.25 Susceptible
GENTAMICIN <=1 Susceptible
NITROFURANTOIN 32 Susceptible
PIPERACILLIN TAZOBACTAM <=4 Susceptible
TRIMETH/SULFAMETHOXAZOLE <=20 Susceptible

null Performing Location [facility] [place] - [address] [facility] [address]
--- OUTSIDE RECORDS SUMMARY | 2024-08-21 14:15 | External Medical Summary ---
Author Name Unknown Address Unknown Organization K01:[facility] [place] [address] [facility] [address] Laboratory Report Ordering Provider Test Date Status JOSE ARMANDO PHAN 03/27/2024 16:35:20 Final Observation Date Value Abnormality Reference (Units ) Status Color of Urine by Auto 03/27/2024 16:35:20 Yellow Light Yellow, Yellow, Dark Yellow Final Clarity, Urine 03/27/2024 16:35:20 Cloudy Abnormal Clear Final Glucose [Mass/volume] in Urine by Automated test strip 03/27/2024 16:35:20 Negative Negative (mg/dL) Final Bilirubin.total [Presence] in Urine by Automated test strip 03/27/2024 16:35:20 Negative Negative Final Ketones [Mass/volume] in Urine by Automated test strip 03/27/2024 16:35:20 Negative Negative (mg/dL) Final Specific gravity, Urine 03/27/2024 16:35:20 1.019 1.003-1.030 Final Hemoglobin [Presence] in Urine by Automated test strip 03/27/2024 16:35:20 Moderate Abnormal Negative Final pH, Urine 03/27/2024 16:35:20 5.5 5.0-7.5 (Units) Final Protein [Mass/volume] in Urine by Automated test strip 03/27/2024 16:35:20 100 Abnormal Negative (mg/dL) Final Urobilinogen [Mass/volume] in Urine by Automated test strip 03/27/2024 16:35:20 0.2 0.2, 1.0 (mg/dL) Final Nitrite [Presence] in Urine by Automated test strip 03/27/2024 16:35:20 Negative Negative Final Leukocyte esterase [Presence] in Urine by Automated test strip 03/27/2024 16:35:20 Large Abnormal Negative Final RBC, Urine 03/27/2024 16:35:20 10-19 Abnormal 0-2 (/HPF) Final WBC, Urine 03/27/2024 16:35:20 50+ Abnormal 0-2 (/HPF) Final Bacteria [#/area] in Urine sediment by Microscopy high power field 03/27/2024 16:35:20 >200 Abnormal 0-25 (/HPF) Final Leukocyte clumps [#/area] in Urine sediment by Microscopy high power field 03/27/2024 16:35:20 Present Abnormal None (/HPF) Final Annotation Comment 03/27/2024 16:35:20 Final Microscopic results may be i naccurate due to inadequate urine volume.

Microscopic performed on uncentrifuged specimen.
null Performing Location [facility] [address]. [facility] [address]
--- OUTSIDE RECORDS SUMMARY | 2024-08-21 14:15 | External Medical Summary | Summary of Care ---
Author Name Unknown Organization [facility] Address [address] [place] [place] [address] Phone [phone] Care Team Providers Care Associate Professor Of Surgery Name Role Phone Jag Kovacs MD Primary Care Provider Reason for Visit * Reason Comments Acute Pt c/o back, shoulde r, neck and R leg pain from fall on 03/22. Denies hitting head. No OTC medications. Encounter Details Date Type Department Care Team (Late st Contact Info) Description 03/27/2024 3:00 PM EDT Office Visit [facility] 21 [place] [address] Sonia Leon CRNP 21 [facility] [place] [address] Fall, initial encounter* Allergies Active Allergy [...] nuclear stress test 05/08/2016 06/12/2017 Overview: 05/04-at [place] card++++ B12 deficiency 08/12/2015 06/12/2017 Overview: b12-231, [...] 5 yrs-Mely. C scope 02/28/2010 Dr. Lynn, [place] internal hemorrhoid, normal colon, repeat 5 years [...] were not included. History of Present Illness Akla Lawson is a 83 year old female [...] Description 04/18/2024 1:50 PM EDT Anticoagulation Pharmacy, [place] [address] [place] [address] Pharmacist1, [facility] [place] [address] [place] [address] 06/05/2024 1:40 PM EDT [facility] [address] [place] [address] Azul yNe DPM 400 [place] [address] 06/23/2024 1:30 PM EDT Nurse Only [facility], Anju [facility] [facility] [address] [place], Nurse Annual Wellness [address] [place] [address] 08/28/2024 6:00 PM EDT Office Visit [address] [place] [address] Jag Kovacs MD 21 [place] [address] Pending Results Name Type Priority Associated Diagnoses [...] Advance Directives occurred with: Patient Care Teams Associate Professor Of Surgery Relationship Specialty Start Date End Date Jag Kovacs MD 21 [place] [phone] PCP - General Family Medicine 08/05/21 documented as of this encounter
--- OUTSIDE RECORDS SUMMARY | 2024-08-21 14:15 | External Medical Summary | Summary of Care ---
Author Name Unknown Organization [facility] Address [address] [facility] [place] [address] Phone [phone] Care Team Providers Care Golf Cart Attendant Name Role Phone Jag Kovacs MD Primary Care Provider Encounter Details Date Type Department Care Team (Latest Contact Info) Description 03/27/2024 3:42 PM EDT - 03/27/2024 11:59 PM EDT Hospital Encounter Radiology, [address] [place] [address] Arrived Discharge Disposition: Home - Self Care Allergies Active Allergy Reactions Criticality Noted Date Comments Diphenhydramine 09/03/2018 Epinephrine Other (Please comment) 07/03/2023 Propranolol Hcl 09/29/2010 "TIA" - like reactions Lisinopril Cough 08/04/2008 Mepivacaine Hcl 06/30/2008 With epi: whole face sagged Simvastatin 12/25/2012 Myalgia-nl CK documented as of this encounter (statuses as of 03/28/2024) Medications Medication Sig Dispensed Refills Start Date [...] as of this encounter (statuses as of 03/28/2024) Active Problems Problem Noted Date Diagnosed Date [...] as of this encounter (statuses as of 03/28/2024) Resolved Problems Problem Noted Date Diagnosed Date [...] stress test 05/08/2016 06/12/2017 Overview: 05/04-at [place] card++++ B12 deficiency 08/12/2015 06/12/2017 Overview: b12-231, [...] as of this encounter (statuses as of 03/28/2024) Immunizations Name Administration Dates Next Due PPD [...] No 11/29/2022 documented as of this encounter Plan of Treatment Upcoming Encounters Date Type Department Care Team (Late st Contact Info) Description 04/18/2024 1:50 PM EDT Anticoagulation Pharmacy, [place] [address] [place] [phone] Pharmacist1, [facility] [place] [address] [place] [address] 06/05/2024 1:40 PM EDT Office Visit Podiat[facility], [facility] [address] [facility] [phone] Azul Nye [facility] 400 [place] [address] 06/23/2024 1:30 PM EDT Nurse Only Ancillary, [place] [address] [place] [address] [place], Nurse Annual Wellness [address] [place] [address] 08/28/2024 6:00 PM EDT Office Visit [facility] [phone] Jag Kovacs MD 21 [facility] [place] [phone] Pending Results Name Type Priority Associated Diagnoses [...] Fall, initial encounter 03/27/2024 4:25 PM EDT Scheduled Procedures Name Priority Associated [...] Advance Directives occurred with: Patient Care Teams Golf Cart Attendant Relationship Specialty Start Date End Date Jag Kovacs MD 21 [place] [address] PCP - General Family Medicine 08/05/21 documented as of this encounter
--- OUTSIDE RECORDS SUMMARY | 2024-08-21 14:15 | External Medical Summary | Summary of Care ---
Author Name Unknown Organization [facility] Address [address] [place] [address] Phone [phone] Care Team Providers Care Kosher Butcher Name Role Phone Jag Kovacs MD Primary Care Provider Encounter Details Date Type Department Care Team (Late st Contact Info) Description 03/28/2024 Telephone Pharmacy, [facility] [address] [place] [address] Bryan Penn, [facility] [address] [place] [address] Allergies Active Allergy Reactions Criticality Noted Date [...] ANTICOAGULATION CLINIC 180 Tablet 1 4 Active Sulfamethoxazole-Tr imethoprim 800-160 MG Oral Tablet (Bactrim DS)Indications:Susp ected urinary tract infection Take 1 Tablet by mouth in the morning and 1 Tablet before bedtime. Do all this for 3 days. 6 Tablet 0 4 03/31/20 24 Active documented as of this encounter (statuses [...] nuclear stress test 05/08/2016 06/12/2017 Overview: 05/04-at [place] card++++ B12 deficiency 08/12/2015 06/12/2017 Overview: b12-231, [...] Encounter - Jose Martin Castellon RPh - 03/28/2024 5:16 PM EDT Patient Phone Numbers BPA received for Bactrim/warfarin interaction. Last INR 03/21 elevated at 3.5 with 1 dose held. Will reduce warfarin dose while on Bactrim to warfrain 2.5mg daily x 3days. Patient Phone Numbers Phone call to patient x 2. No answer. Unable to leave message. Spoke to son. Provided dosing instructions. Jose Martin Castellon, Jia Clinical Pharmacist [facility] 03/28/2024 5:21 PM * Telephone Encounter - Bryan Penn RPh - 03/28/2024 8:44 AM EDT Best Practice Alert for warfarin drug interaction Patient was ordered Bactrim DS for 3 days Note sent to coag clinic documented in this encounter Plan of Treatment Upcoming Encounters Date Type Department Care Team (Late st Contact Info) Description 04/18/2024 1:50 PM EDT Anticoagulation Pharmacy, [place] [address] [place] [address] Pharmacist1, [facility] [address] [place] [address] 06/05/2024 1:40 PM EDT Office Visit Podiatry, [facility] 400 [place], [place] [phone] Azul Nye, [facility] 400 [place] [address] 06/23/2024 1:30 PM EDT Nurse Only [facility], [place] [address] [place] [address] [place], Nurse Annual Wellness [address] [facility] [address] [place] [address] 08/28/2024 6:00 PM EDT Office Visit [facility] 21 [place] [phone] Jag Kovacs MD 21 [place], [place] [phone] Scheduled Procedures Name Priority Associated Diagnoses Date/Ti [...] Advance Directives occurred with: Patient Care Teams Kosher Butcher Relationship Specialty Start Date End Date Jag Kovacs MD 21 [place] [phone] PCP - General Family Medicine 08/05/21 documented as of this encounter
--- OUTSIDE RECORDS SUMMARY | 2024-08-21 14:16 | External Medical Summary ---
Author Name Unknown Address Unknown Organization : Laboratory Report Ordering Provider Test Date Status JACEY VALENCIA1 03/21/2024 13:46:15 Final Therapeutic ranges for non-o perative patients:
Prophylaxsis/treatment of DVT: (Range:2.0-3.0)
Treatment of pulmonary embolism:(Range:2.0-3.0)
Prevention of systemic embolism from:
-tissue heart valves
-acute myocardial infarction
-valvular heart disease
-atrial fibrillation
(Range: 2.0-3.0)
Mechanical prosthetic valves: (Range: 2.5-3.5) Observation Date Value Abnormality Reference (Units ) Status INR in Capillary blood by Coagulation assay 03/21/2024 13:46:15 3.5 (INR) Final Performing Location
--- OUTSIDE RECORDS SUMMARY | 2024-08-21 14:16 | External Medical Summary | Summary of Care ---
Author Name Unknown Organization [facility] Address [address] [place] [address] Phone [phone] Care Team Providers Care Electrical Maintenance Supervisor Name Role Phone Jag Kovacs MD Primary Care Provider Reason for Visit * Reason Comments Follow Up * Evaluate & Treat - Unlimited Visits (Within 10 days (routine)) - Authorized Specialty Diagnoses / Procedures Referred By Bernard jo Referred To Contact Podiatry Diagnoses Type 2 diabetes mellitus with hemoglobin A1c goal of less than 8.0% ([facility]) Jag Kovacs MD [address] [place] [address] Referral ID Status Reason Start Date Expiration Date Visits Requested Visits Authorized [id number] Authorized Specialty Services Required 02/08/2024 [id number] Encounter Details Date Type Department Care Team (Late st Contact Info) Description 02/26/2024 2:00 PM EDT Office Visit Podiatry, [facility] [address] [place] [address] Azul Nye DPM [address] [place] [address] Diabetic polyneuropathy associated with type 2 diabetes mellitus (HCC)*; Onychomycosis; Onychocryptosis; Pain in toes of both feet Allergies Active Allergy Reactions Criticality Noted Date Comments Diphenhydramine 09/03/2018 Epinephrine Other (Please comment) 07/03/2023 Propranolol Hcl 09/29/2010 "TIA" - like reactions Lisinopril Cough 08/04/2008 Mepivacaine Hcl 06/30/2008 With epi: whole face sagged Simvastatin 12/25/2012 Myalgia-nl CK documented as of this encounter (statuses as of 02/26/2024) Medications Medication Sig Dispensed Refills Start Date End Date Status ONECINDA MORENO MISCIndications:DM type 2, goal A1c below [...] as of this encounter (statuses as of 02/26/2024) Active Problems Problem Noted Date Diagnosed Date [...] as of this encounter (statuses as of 02/26/2024) Resolved Problems Problem Noted Date Diagnosed Date [...] nuclear stress test 05/08/2016 06/12/2017 Overview: 05/04-at [place] card++++ B12 deficiency 08/12/2015 06/12/2017 Overview: b12-231, [...] 5 yrs-Mely. Noel scope 02/28/2010 Dr. Lynn, [place] internal hemorrhoid, normal colon, repeat 5 years [...] as of this encounter (statuses as of 02/26/2024) Immunizations Name Administration Dates Next Due PPD [...] Progress Notes * Azul Nye, DPM - 02/26/2024 2:03 PM EDT Podiatry Established Note [facility] Name: Alka Lawson : 1940 Date: 02/26/2024 REASON FOR VISIT: foot care SUBJECTIVE: This patient is a 83 year old female who presents today for a diabetic foot exam with routine care. She complains of thickening of the bilateral 5th toenail as well as pain to both great toes. She states she is unable to trim this herself. She is a type II diabetic. 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 ([facility]) 02/16/201101/27--DrMittal-IgG synthesis rate, myelin basic protein, CSF angiotensin converting enzyme, CSF lyme disease DNA PCR and HSV were all within the normal range>>f/u 05/2011--rec fu prn Depression DM type 2 causing renal disease ([facility]) 11/16/2010 DM type 2, goal A1c below [...] eval> >01/31-dc fe ILD (interstitial lung disease) ([facility]) 02/14/2023 Internal hemorrhoids 01/26/2014 Mixed incontinence urge and stress (male)(female) 11/16/2010 Nocturnal hypoxia 05/14/201506/02--night ox 01/31 my read-desaturation to 87%.-?pattern osas. >refer-sleep cl eval-[facility] sleep study>08/12/15--no osas, -fu 09/02---rec O2 defers Obesity, Class III, BMI 40-49.9 (morbid obesity) ([facility]) 05/03/2010 Per Obesity Protocol, #19 ICD-10 update [...] with palpation of the left 5th toenail. Dermatological: There is significant incurvation of the medial and lateral nail borders of the bilateral great toenails and bilateral second/third toenails. The left 5th toenails is thickened, discolored (yellow brown) and elongated, left worse than right. All remaining toenails are now mildly discolored, thickened, show subungual debris. Skin is thin, atrophic. No erythema. [...] 4. Pain in toes of both feet PLAN: Procedure: After mild cleansing and drying of feet, toenails 1-5 bilaterally were manually and mechanically debrided without incident. A nail splitter was used to remove all incurvating edges. A bezel cutter wasused to trim nail to appropriate length. An electrical bur was used in a side to side motion to reduce nail thickness, hypertrophic growth, and to smooth all edges. Patient tolerated well. They noted improvement following procedure. Follow up: 3 months documented in this encounter Nursing Notes * Juana Corona LPN - 02/26/2024 2:04 PM EDT Patient was instructed to not get up on the exam table/exam chair until directed and assisted by their provider; patient is to remain seated in the chair/ wheelchair/ exam table/ exam chair for fall prevention and safety reasons. Patient is aware to have assistance to step down off exam table/exam chair with personnel. Patient voiced full comprehension of instructions. Pt here for routine nail care. Diabetic documented in this encounter Plan of Treatment Upcoming Encounters Date Type Department Care Team (Late st Contact Info) Description 03/19/2024 2:00 PM EDT Anticoagulation Pharmacy, [address] [place] [address] Pharmacist1, [facility] [address] [place] [address] 06/05/2024 1:40 PM EDT Office Visit Podiatry, [facility] [address] [facility] [address] Azul Nye, D[place] [address] [place] [address] 06/23/2024 1:30 PM EDT Nurse Only Ancillary, [place] [address] [place] [address] [place], Nurse Annual Wellness [address] [place] [address] 08/28/2024 6:00 PM EDT Office Visit Family [facility] [place] [facility] [phone] Jag Kovacs MD [address] [place] [address] Scheduled Procedures Name Priority Associated Diagnoses Date/Ti me COLONOSCOPY FLEXIBLE PROXIMAL DIAGNOSTIC Recall Special screening for malignant neoplasms, colon GERD (gastroesophageal reflux disease) ESOPHAGOGASTRODUODENOSCOPY ( EGD), FLEXIBLE, TRANSORAL, DIAGNOSTIC Recall Special screening for malignant neoplasms, colon GERD (gastroesophageal reflux disease) Scheduled Referrals Name Type Priority Associated Diagnoses Orde r Schedule PODIATRY (DIABETES-EXTENDED) REFERRAL OP Referral Within 10 days (routine) Type 2 diabetes mellitus with hemoglobin A1c goal of less than 8.0% ([facility]) Ordered: 02/08/2024 Health Maintenance Due Date Last Done Comments Zoster Vaccines (2 of 3) 04/09/2012 02/13/2012 COVID-19 Vaccine ( - 2022- season) 2023 COLONOSCOPY-EVERY 3 YRS AGES 18-100 10/12/2023 10/12/2020, 10/12/2020, 09/28/2017, Additional history exists Diabetic Eye Exam 03/16/2024 03/16/2023, , 10/27/2021, Additional history exists Albumin/Creatinine Ratio 06/08/2024 023, 11/09/2022, 04/06/2020, Additional history exists TSH 06/08/2024 06/08/2023, 11/20, 12/08/2022, Additional history exists HbA1c 06/12/2024 12/13/2023, 05/20, 12/05/2022, Additional history exists Depression Screening 06/20/2024 06/20/2023 GFR 12/13/2024 12/13/2023, 11/20, 12/07/2022, Additional history exists Diabetic Foot Exam 02/06/2025 02/07/2024, 0 02/14/2023, 05/04/2022, Additional history exists DXA Scan 06/05/2026 06/05/2019, [...] nail Pain in toes of both feet documented in this encounter Advance Directives Latest [...] Advance Directives occurred with: Patient Care Teams Electrical Maintenance Supervisor Relationship Specialty Start Date End Date Jag Kovacs MD [address] [place] [address] PCP - General Family Medicine 08/05/21 documented as of this encounter
--- OUTSIDE RECORDS SUMMARY | 2024-08-21 14:16 | External Medical Summary | Summary of Care ---
Author Name Unknown Organization [facility] Address [address] [facility] [place] [address] Phone [phone] Care Team Providers Care Dam Attendant Name Role Phone Jag Kovacs MD Primary Care Provider Encounter Details Date Type Department Care Team (Late st Contact Info) Description 03/21/2024 Orders Only [facility] [address] [facility] [place] [phone] Jag [facility]acs [facility] [address] Allergies Active Allergy Reactions Criticality Noted [...] nuclear stress test 05/08/2016 06/12/2017 Overview: 05/04-at [place] card++++ B12 deficiency 08/12/2015 06/12/2017 Overview: b12-231, [...] 5 yrs-Mely. C scope 02/28/2010 Dr. Lynn, [place] internal hemorrhoid, normal colon, repeat 5 years [...] Care Team (Late st Contact Info) Description 03/21/2024 1:50 PM EDT Anticoagulation Pharmacy, [place] [address] [place] [address] Pharmacist1, [facility] [place] [address] [place] [address] 06/05/2024 1:40 PM EDT Office Visit Podiatry, [facility] [address] [place], [place] [phone] Azul Nye, [facility] [address] [place], [place] [phone] 06/23/2024 1:30 PM EDT Nurse Only Ancillary, [place] [address] [place] [address] [place], Nurse Annual Wellness [address] [place] [address] [place] [address] 08/28/2024 6:00 PM EDT Office Visit Family [facility] [address] [facility] [place] [address] Jag Kovacs MD [address] [facility] [phone] Scheduled Procedures Name Priority Associated Diagnoses Date/Ti me COLONOSCOPY FLEXIBLE PROXIMAL DIAGNOSTIC Recall Special screening for malignant neoplasms, colon GERD (gastroesophageal reflux disease) ESOPHAGOGASTRODUODENOSCOPY ( EGD), FLEXIBLE, TRANSORAL, DIAGNOSTIC Recall Special screening for malignant neoplasms, colon GERD (gastroesophageal reflux disease) Health Maintenance Due Date Last Done Comments Zoster Vaccines (2 of 3) 04/09/2012 02/13/2012 COVID-19 Vaccine (1 - season) 2023 Colonoscopy 10/12/2023 10/12/2020, 09/20, 09/28/2017, Additional history exists Albumin/Creatinine Ratio 06/08/2024 023, 11/09/2022, 04/06/2020, Additional history exists TSH 06/08/2024 06/08/2023, 11/20, 12/08/2022, Additional history exists HbA1c 06/12/2024 12/13/2023, 05/20, 12/05/2022, Additional history exists Depression Screening 06/20/2024 06/20/2023 GFR 12/13/2024 12/13/2023, 11/20, 12/07/2022, Additional history exists Diabetic Foot Exam 02/06/2025 02/07/2024, 0 02/14/2023, 05/04/2022, Additional history exists Diabetic Eye Exam 03/21/2025 03/17/2024, , 03/16/2023, Additional history exists DXA [...] Procedure Name Priority Date/Time Associated Diagnosis Comments DIABETIC EYE EXAM Routine 03/17/2024 documented in this encounter Results * DIABETIC EYE EXAM (03/17/2024) 03/17/2024 Hussein [place] Opal KELLY OTHER OUTSIDE LAB (SEE SCANNED REPORT) documented in this encounter Advance Directives Latest [...] Advance Directives occurred with: Patient Care Teams Dam Attendant Relationship Specialty Start Date End Date Jag Kovacs MD [address] [place] [address] PCP - General Family Medicine 08/05/21 documented as of this encounter
[2024-08-21] MEDS: ACETAMINOPHEN 325 MG TAB PO PRN (15:42)
[2024-08-21] MEDS: metFORMIN HCL 500 MG TAB PO SCH (16:31)
--- NOTE | 2024-08-21 16:42 | Electrocardiogram Report ---
Test Reason : Blood Pressure : */* mmHG Vent. Rate : 68 BPM Atrial Rate : 68 BPM P-R Int : 242 ms QRS Dur : 118 ms QT Int : 418 ms P-R-T Axes : 30 -40 48 degrees QTcB Int : 444 ms Sinus rhythm with 1st degree A-V block and occasionoal demand atrial pacing Left axis deviation Nonspecific ST abnormality Abnormal ECG Confirmed by Brian Loredo ([id number]) on 08/21/2024 4:42:11 PM Referred By: Brian Loredo Confirmed By: Brian Loredo
[2024-08-21] MEDS: PANTOprazole 40 MG TAB PO SCH (20:11)
[2024-08-21] MEDS: METOPROLOL TARTRATE 25 MG TAB PO SCH (20:12)
[2024-08-21] MEDS: allopurinoL 100 MG TAB PO SCH (20:12)
[2024-08-21] MEDS: ceFAZolin 1000MG 1,000 MG/7.5 ML SYR IV ONE (20:13)
[2024-08-21] MEDS ORDERED: allopurinoL 100 MG TAB PO SCH (21:00)
[2024-08-22] MEDS: LEVOTHYROXINE SODIUM 125 MCG TABLET PO SCH (06:38)
[2024-08-22] MEDS: glipiZIDE ER 2.5 MG TABCR PO SCH (06:38)
--- NOTE | 2024-08-22 07:04 | XRay Report ---
XR chest 2V PA/lateral HISTORY: 84 years-old Female EXACT TIME ORDERED Evaluate for pneumothorax and l status post placemen t of a left subclavian dual-lead pacer COMPARISON: 10/02/2011 TECHNIQUE: AP and lateral views of the chest FINDINGS: Status post placement of a dual lead left subclavian pacer. No postprocedural pneumothorax identified . Heart is enlarged. Pulmonary vascular congestion with interstitial coarsening. Probable small pleur al effusions with mild bibasilar atelectasis. Bones appear grossly intact. IMPRESSION: Status post placement of a dual lead left subclavian pacer. No postprocedural pneumothora x identified. ACT 112: Negative or not required by law. The above report was generated using voice recognition software. It may contain grammatical, syntax o r spelling errors. Electronically signed by: Jeferson Brewster M.D. 08/22/2024 7:02 AM
[2024-08-22 07:56] LABS: INR 1.9 (0.9-1.1); Prothrombin Time 19.5 Seconds (9.0-12.0)
[2024-08-22] MEDS: hydroCHLOROthiazide 25 MG TAB PO SCH (08:17)
[2024-08-22] MEDS ORDERED: MECOBALAMIN PO SCH (09:00)
--- NOTE | 2024-08-22 10:25 | Discharge Summary ---
Date of Service August 22, 2024 Admission HPI Per Admitting Provider Patient with a history of syncope, heart block and atrial fibrillation who had previously undergone implant of a loop recorder. Recent transmissions have demonstrated recurrent heart block Discharge Data Allergies Allergy/AdvReac Type Severity Reaction Status Date / Time dimenhydrinate Allergy Unknown RASH Verified 08/21/24 09:29 epinephrine AdvReac Unknown sagging Verified 08/21/24 13:15 face lisinopril AdvReac Unknown CHRONIC Verified 08/21/24 13:15 COUGH mepivacaine AdvReac Unknown W/ Verified 08/21/24 13:16 EPINEPHRINE - LIGHTHEADED, FACIAL DROOPING Procedures Performed Operation Date: 08/21/24 10:00 Actual Procedures p Pacer with A/V Leads (Dual) - Brian Loredo MD s Remove Cardiac Event Recorder - Brian Loredo MD Ordered Studies 08/21/24 07:30 EP Lab Images for PACS ONCE Discharge Plan Discharge Items Patient Disposition: Home - Self-Care Reason For Visit: HEART BLOCK Discharge Diagnosis: heart block Activity: Per Instructions section Activity Comment: No lifting left arm above shoulder or behind neck for 6 weeks Lifting: No more than 10 pounds Bathing: Keep incision dry Bathing Comment: keep wound dry and steri-strip intact until f/u next week Driving/Machine Use: No limitations Non-emergency contact: Cleat Blanker Call non-emergency contact if: your pain is concerning for you, your wound has increased redness, your wound has increased drainage and your wound pain has increased Follow-up/Referrals: Jag Kovacs MD [Primary Care Provider] - Diet: Carb Consistent or DM2 and Heart Healthy Addtl Attending Provider Instructions: none Pending Studies at Discharge: No Stand-Alone Forms: My [facility] Subtextual, Smoking Cessation Medications and DC Order Prescriptions: Continued levothyroxine [Synthroid] 125 mcg tablet 125 mcg PO DAILY omeprazole 40 mg capsule,delayed release(DR/EC) 40 mg PO QPM metoprolol tartrate 50 mg tablet 25 mg PO BID Qty: 90 3RF Hold Instructions: heart block hydrochlorothiazide 12.5 mg tablet 12.5 mg PO DAILY allopurinol 100 mg tablet 200 mg PO BID mecobalamin (vitamin B12) 1 ea PO DAILY warfarin 5 mg tablet 5 mg PO DAILY metformin 1,000 mg tablet 1,000 mg PO BID glipizide 2.5 mg tablet extended release 24 hr 10 mg PO DAILY Discharge Orders: Discharge Order (Routine); Ordered 08/22/24 Ordered By: Brian Loredo Admission Data Admit Date/Time: 08/21/24 12:18 Attending Provider: Brian Loredo Admit Provider: Brian Loredo Primary Care Provider: Jag Kovacs Coding
[2024-08-22 11:25] VITALS: BP 144/87; PULSE 78; RESP 18; TEMP 97.3; O2SAT 97
[2024-08-22] MEDS ORDERED: WARFARIN SOD 5 MG TAB PO SCH (16:00)
[2024-08-22] MEDS ORDERED: WARFARIN SOD 3 MG TAB PO SCH (16:00)
--- OUTSIDE RECORDS SUMMARY | 2024-08-22 18:13 | External Medical Summary | Summary of Care ---
Author Name Unknown Organization [facility] Address [address] [place] [address] Phone [phone] Care Team Providers Care Hot Stone Setter Name Role Phone Jag Kovacs MD Primary Care Provider Reason for Visit * Reason Onset Date Comments Medication Refill 08/20/2024 Encounter Details Date Type Department Care Team (Late st Contact Info) Description 08/20/[address] [facility] [address] [facility] [place] [address] Jag Kovacs MD [address] [place] [address] Allergies Active Allergy Reactions Criticality Noted Date Comments Diphenhydramine 09/03/2018 Epinephrine Other (Please comment) 07/03/2023 Propranolol Hcl 09/29/2010 "TIA" - like reactions Lisinopril Cough 08/04/2008 Mepivacaine Hcl 06/30/2008 With epi: whole face sagged Simvastatin 12/25/2012 Myalgia-nl CK documented as of this encounter (statuses as of 08/21/2024) Medications Medication Sig Dispensed Refills Start Date [...] into the rectum in the morning. Active Cefdinir 300 MG Oral Capsule (Omnicef) [...] every afternoon. 90 Tablet 3 08/20/2024 Active Warfarin Sodium 3 MG Oral Tablet (Coumadin) Take 1 Tablet by mouth in the morning. 30 Tablet 3 08/21/2024 Active Potassium Chloride ER 10 MEQ Oral Tablet Extended Release Take 1 Tablet by mouth in the morning. In the morning.. 30 Tablet 3 08/21/2024 Active Potassium Chloride ER 10 MEQ Oral Tablet Extended Release Take 1 Tablet by mouth. In the morning. 07/17/2024 08/20/20 Discontinu ed(Refill) Warfarin Sodium 3 MG Oral Tablet (Coumadin) Take 1 Tablet by mouth in the morning. 07/17/2024 08/20/20 Discontinu ed(Refill) documented as of this encounter (statuses as of 08/21/2024) Active Problems Problem Noted Date Diagnosed Date [...] as of this encounter (statuses as of 08/21/2024) Resolved Problems Problem Noted Date Diagnosed Date [...] nuclear stress test 05/08/2016 06/12/2017 Overview: 05/04-at [place] card++++ B12 deficiency 08/12/2015 06/12/2017 Overview: b12-231, [...] Overview: Resolved off ca Hip osteoarthritis 11/27/2012 07/25/201 7 Overview: 09/30--hip xr--Mild superior joint space [...] as of this encounter (statuses as of 08/21/2024) Immunizations Name Administration Dates Next Due PPD [...] Miscellaneous Notes * Telephone Encounter - Sonia Russell CRNP - 08/21/2024 8:40 AM EDT Signed Prescriptions: Disp Refills Warfarin Sodium 3 MG Oral Tablet (Coumadin)30 Tab*3 Sig: Take 1 Tablet by mouth in the morning. Authorizing Provider: SONIA RUSSELL Potassium Chloride ER 10 MEQ Oral Tablet E*30 Tab*3 Sig: Take 1 Tablet by mouth in the morning. In the morning.. Authorizing Provider: SONIA RUSSELL * Telephone Encounter - Ghazala Quevedo CPhT - 08/20/2024 3:13 PM EDT Patients daughter calling requesting the following medication below that is listed as "Historical". The following information was provided: Daughter is requesting high priority Medication Name: warfarin Strength: 3 mg Directions: 1 daily Preferred Quantity: 90 Previous Prescriber: Mark Alvarado MD [facility]acy: [facility] Medication Name: Potassium Chloride ER Strength: 10 meq Directions: 1 daily Preferred Quantity: 90 Previous Prescriber: Mark Alvarado MD Preferred Pharmacy: [facility] Please review and approve if appropriate. Thank you, Ghazala Quevedo CPhT Safety Associate III [facility] [address] [place] [address], [address] [address] documented in this encounter Plan of Treatment Upcoming Encounters Date Type Department Care Team (Late st Contact Info) Description 08/26/2024 8:30 AM EDT Scheduled Telephone Care Coordination and Integration [address] [place] [address] Cathy Brannon, [facility] Store Warehouse Associate [address] [place] [address] 08/27/2024 3:00 PM EDT Anticoagulation Pharmacy, [place] [address] [place] [address] Pharmacist1, [facility] [place] [address] [place] [address] 08/28/2024 6:00 PM EDT Office Visit [facility] [phone] Jag Kovacs MD 21 [facility] [phone] 09/11/2024 2:00 PM EDT Office Visit Podiatry, [facility] [address] [facility] [place] [address] Azul Nye DPM 400 [place] [address] Scheduled Procedures Name Priority Associated Diagnoses Date/Ti [...] Documents on File Type Date Recorded Patient Manager Of Planning Expl anation POLST 08/07/2024 signed on 06/16 [...] Advance Directives occurred with: Family Care Teams Hot Stone Setter Relationship Specialty Start Date End Date Jag Kovacs MD [address] [place] [address] PCP - General Family Medicine 08/05/21 documented as of this encounter
--- OUTSIDE RECORDS SUMMARY | 2024-08-22 18:13 | External Medical Summary | Summary of Care ---
Author Name Unknown Organization [facility] Address [address] [place] [address] Phone [phone] Care Team Providers Care Plastic Battery Assembler Name Role Phone Jag Kovacs MD Primary Care Provider Encounter Details Date Type Department Care Team (Late st Contact Info) Description 08/21/2024 Result Scan Unspecified Department <No scans attached> Allergies Active Allergy Reactions Criticality Noted Date Comments Diphenhydramine 09/03/2018 Epinephrine Other (Please comment) 07/03/2023 Propranolol Hcl 09/29/2010 "TIA" - like reactions Lisinopril Cough 08/04/2008 Mepivacaine Hcl 06/30/2008 With epi: whole face sagged Simvastatin 12/25/2012 Myalgia-nl CK documented as of this encounter (statuses as of 08/22/2024) Medications Medication Sig Dispensed Refills Start Date [...] Active Atorvastatin Calcium 80 MG Oral Tablet (Lipitor)Indications :Dyslipidemia, goal LDL below 100 Take 1 Tablet by mouth every afternoon. 90 Tablet 3 08/20/2024 Active Warfarin Sodium 3 MG Oral Tablet (Coumadin) Take 1 Tablet by mouth in the morning. 30 Tablet 3 08/21/2024 Active Potassium Chloride ER 10 MEQ Oral Tablet Extended Release Take 1 Tablet by mouth in the morning. In the morning.. 30 Tablet 3 08/21/2024 Active documented as of this encounter (statuses as of 08/22/2024) Active Problems Problem Noted Date Diagnosed Date [...] as of this encounter (statuses as of 08/22/2024) Resolved Problems Problem Noted Date Diagnosed Date [...] nuclear stress test 05/08/2016 06/12/2017 Overview: 05/04-at [place] card++++ B12 deficiency 08/12/2015 06/12/2017 Overview: b12-231, [...] 5 yrs-Mely. Noel scope 02/28/2010 Dr. Lynn, [place] internal hemorrhoid, normal colon, repeat 5 years [...] as of this encounter (statuses as of 08/22/2024) Immunizations Name Administration Dates Next Due PPD [...] No 08/18/2024 Does the household have a [facility] ion[facility] hospitalr source of income? (Household - for [...] Telephone Care Coordination and Integration [address] [place] [address] Cathy Brannon, [facility] Reo Asset Manager [address] [place] [address] 08/27/2024 3:00 PM EDT Anticoagulation Pharmacy, [place] [address] [place] [address] Pharmacist1, [facility] [place] [address] [place] [address] 08/28/2024 6:00 PM EDT Office Visit [facility] [address] [place] [phone] Jag Kovacs MD [address] [place] [address] 09/11/2024 2:00 PM EDT Office Visit Podiatry, [facility] [address] [place], [place] [address] Azul Nye DPM [address] [place], [place] [phone] Scheduled Procedures Name Priority Associated Diagnoses Date/Ti [...] Date/Time Associated Diagnosis Comments CARDIOLOGY SCANNED RESULT 08/21/2024 documented in this encounter Results * CARDIOLOGY SCANNED RESULT (08/21/2024) 08/21/2024 No Physician Data Unknown OTHER documented in this encounter Additional Health Concerns Infection Onset Date Last Indicated Resolved Time ESBL 07/26/2024 07/26/2024 documented as of this encounter Advance Directives Documents on File Type Date Recorded Patient Geophysical Data Technician Expl anation POLST 08/07/2024 signed on [...] Advance Directives occurred with: Family Care Teams Plastic Battery Assembler Relationship Specialty Start Date End Date Jag Kovacs MD [address] [place] [phone] PCP - General Family Medicine 08/05/21 documented as of this encounter
== END 2024-08-22 12:06 | disposition home or self-care (01) ==
LOC: EP 08:53 → 2E 08:53